=== PATIENT | female | born 1945 | race Caucasian/White ===

== ENCOUNTER → 2016-10-21 | Outpatient (CLI) | payer MEDICARE, OTHER ==
[2016-10-21 13:15] LABS: Urine Bilirubin Negative (Negative); Urine Blood TRACE /uL (Negative); Urine Color Yellow (Yellow); Urine Glucose Normal (Normal); Urine Ketone Negative (Negative); Urine Urobilinogen Normal (Negative); Urine pH 5.5 (5.0-8.0)
[2016-10-21 14:10] LABS: Urine Nitrite POSITIVE (Negative)
== END | disposition home or self-care (01) ==
LOC: LAB 10:15
PROVIDERS: ATTEND Internal Medicine Cardiovascular Disease
DX: N39.0 Urinary tract infection, site not specified (principal)
CPT/HCPCS: 81003; 87086

== ENCOUNTER → 2016-11-07 | Outpatient (CLI) | payer MEDICARE, OTHER ==
[2016-11-07 12:33] LABS: Urine Bilirubin Negative (Negative); Urine Blood Negative /uL (Negative); Urine Color Yellow (Yellow); Urine Glucose Normal (Normal); Urine Ketone Negative (Negative); Urine Nitrite Negative (Negative); Urine Urobilinogen Normal (Negative); Urine pH 5.5 (5.0-8.0)
== END | disposition home or self-care (01) ==
LOC: LAB 09:21
PROVIDERS: ATTEND Internal Medicine Cardiovascular Disease
DX: N39.0 Urinary tract infection, site not specified (principal)
CPT/HCPCS: 81003; 87086

== ENCOUNTER → 2016-11-18 | Outpatient (CLI) | payer MEDICARE, OTHER ==
[2016-11-18 12:38] LABS: Basophils # (auto) 0 uL; Basophils % (auto) 0.6 % (0.0-2.0); Eosinophils # (auto) 0.3 uL; Eosinophils % (auto) 5.7 % (0.0-7.0); Hematocrit 44.2 % (36.0-46.0); Hemoglobin 14.2 g/dL (12.2-16.2); Lymphocytes # (auto) 1.7 uL; Lymphocytes % (auto) 37.8 % (10.0-50.0); Mean Corpuscular Hemoglobin 31.5 pg (28.0-32.0); Mean Corpuscular Hgb Conc. 32.2 g/dL (32.0-36.0); Mean Corpuscular Volume 97.8 fL (80.0-100.0); Mean Platelet Volume 9.2 fL (7.4-10.4); Monocytes # (auto) 0.3 uL; Monocytes % (auto) 7.5 % (0.0-12.0); Neutrophils # (auto) 2.2 uL; Neutrophils % (auto) 48.4 % (37.0-80.0); Platelet Count (auto) 245 10^3/uL (140-450); Red Cell Distribution Width 12.7 % (11.6-16.0); White Blood Cell 4.6 10^3/uL (4.4-10.8)
[2016-11-18 13:30] LABS: Albumin 3.8 g/dL (3.4-5.0); BUN/Creatinine Ratio 24.7; Bilirubin, Direct 0.1 mg/dL (0-0.2); Calcium 9.3 mg/dL (8.5-10.1); Potassium 4.2 mmol/L (3.5-5.1)
[2016-11-18 13:33] LABS: Bilirubin, Total 0.4 mg/dL (0.2-1.0)
== END | disposition home or self-care (01) ==
LOC: LAB 08:28
PROVIDERS: ATTEND Internal Medicine Cardiovascular Disease
DX: I10 Essential (primary) hypertension (principal); D64.9 Anemia, unspecified; E78.00 Pure hypercholesterolemia, unspecified; E03.9 Hypothyroidism, unspecified; E55.9 Vitamin D deficiency, unspecified; K74.1 Hepatic sclerosis; E11.9 Type 2 diabetes mellitus without complications; Z13.0 Encounter for screening for diseases of the blood and blood-forming organs and certain disorders involving the immune mechanism; R79.82 Elevated C-reactive protein (CRP)
CPT/HCPCS: 36415; 80048; 80061; 80076; 82306; 83036; 84443; 85025; 85652; 86038; 86141; 86225

== ENCOUNTER → 2017-01-13 | Outpatient (CLI) | payer MEDICARE, OTHER ==
[2017-01-13 12:42] LABS: Urine Bilirubin Negative (Negative); Urine Blood Negative /uL (Negative); Urine Color Yellow (Yellow); Urine Glucose Normal (Normal); Urine Ketone TRACE (Negative); Urine Nitrite Negative (Negative); Urine Urobilinogen Normal (Negative)
[2017-01-13 12:43] LABS: Basophils # (auto) 0 uL; Basophils % (auto) 0.3 % (0.0-2.0); Eosinophils # (auto) 0.5 uL; Eosinophils % (auto) 4.6 % (0.0-7.0); Hematocrit 40.3 % (36.0-46.0); Hemoglobin 13.6 g/dL (12.2-16.2); Lymphocytes # (auto) 1.7 uL; Lymphocytes % (auto) 17.3 % (10.0-50.0); Mean Corpuscular Hemoglobin 33.1 pg (28.0-32.0); Mean Corpuscular Hgb Conc. 33.7 g/dL (32.0-36.0); Mean Corpuscular Volume 98.2 fL (80.0-100.0); Mean Platelet Volume 8.7 fL (7.4-10.4); Monocytes # (auto) 0.8 uL; Neutrophils % (auto) 69.8 % (37.0-80.0); Platelet Count (auto) 323 10^3/uL (140-450); Red Cell Distribution Width 12.6 % (11.6-16.0); White Blood Cell 10.1 10^3/uL (4.4-10.8)
== END | disposition home or self-care (01) ==
LOC: LAB 10:36
PROVIDERS: ATTEND Internal Medicine Cardiovascular Disease
DX: Z13.0 Encounter for screening for diseases of the blood and blood-forming organs and certain disorders involving the immune mechanism (principal); D64.9 Anemia, unspecified; R70.0 Elevated erythrocyte sedimentation rate; R79.82 Elevated C-reactive protein (CRP); N39.0 Urinary tract infection, site not specified
CPT/HCPCS: 36415; 81003; 85025; 85652; 86038; 86141; 86225; 86431; 87086

== ENCOUNTER → 2017-03-20 | Outpatient (CLI) | payer MEDICARE, OTHER ==
[2017-03-20 16:27] LABS: Urine Bilirubin Negative (Negative); Urine Blood Negative /uL (Negative); Urine Color Yellow (Yellow); Urine Glucose Normal (Normal); Urine Ketone Negative (Negative); Urine Urobilinogen Normal (Negative)
[2017-03-20 16:30] LABS: Urine Nitrite POSITIVE (Negative)
== END | disposition home or self-care (01) ==
LOC: LAB 13:13
PROVIDERS: ATTEND Internal Medicine Cardiovascular Disease
DX: N39.0 Urinary tract infection, site not specified (principal)
CPT/HCPCS: 81003; 87086

== ENCOUNTER → 2017-04-07 | Outpatient (CLI) | payer MEDICARE, OTHER | END | disposition home or self-care (01) | LOC: LAB 12:36 | PROVIDERS: ATTEND Internal Medicine Cardiovascular Disease | DX: N39.0 Urinary tract infection, site not specified (principal) | CPT/HCPCS: 36415; 87086 ==

== ENCOUNTER → 2017-05-29 | Outpatient (CLI) | payer MEDICARE, OTHER ==
[2017-05-29 12:41] LABS: Urine Bilirubin Negative (Negative); Urine Blood Negative /uL (Negative); Urine Color Yellow (Yellow); Urine Glucose Normal (Normal); Urine Ketone Negative (Negative); Urine Nitrite Negative (Negative); Urine Urobilinogen Normal (Negative)
== END | disposition home or self-care (01) ==
LOC: LAB 09:15
PROVIDERS: ATTEND Internal Medicine Cardiovascular Disease
DX: N39.0 Urinary tract infection, site not specified (principal)
CPT/HCPCS: 81003; 87086

== ENCOUNTER → 2017-06-05 | Outpatient (CLI) | payer MEDICARE, OTHER | END | disposition home or self-care (01) | LOC: Rad HDHVI 08:02 | PROVIDERS: ATTEND Internal Medicine Cardiovascular Disease | DX: I07.1 Rheumatic tricuspid insufficiency (principal); I10 Essential (primary) hypertension; I25.10 Atherosclerotic heart disease of native coronary artery without angina pectoris | CPT/HCPCS: 93306 ==

== ENCOUNTER → 2017-06-23 | Outpatient (CLI) | payer MEDICARE, OTHER ==
[~2017-06-23] VITALS: Ht 160 cm; Wt 69.4 kg
== END | disposition home or self-care (01) ==
LOC: Rad HDHVI 07:53
PROVIDERS: ATTEND Internal Medicine Cardiovascular Disease
DX: I25.10 Atherosclerotic heart disease of native coronary artery without angina pectoris (principal); I10 Essential (primary) hypertension; E78.00 Pure hypercholesterolemia, unspecified
CPT/HCPCS: 78452; 93017; 96374; A9500

== ENCOUNTER → 2017-10-02 | Outpatient (CLI) | payer MEDICARE, OTHER ==
[2017-10-02 16:18] LABS: Basophils # (auto) 0 uL; Monocytes # (auto) 0.6 uL; Nucleated Red Blood Cells % 0.1 %; White Blood Cell 7.5 10^3/uL (4.4-10.8)
[2017-10-02 16:21] LABS: Basophils % (auto) 0.7 % (0.0-2.0); Eosinophils # (auto) 0.2 uL; Eosinophils % (auto) 3.3 % (0.0-7.0); Hematocrit 39.5 % (36.0-46.0); Hemoglobin 13.6 g/dL (12.2-16.2); Lymphocytes # (auto) 2.2 uL; Lymphocytes % (auto) 29.3 % (10.0-50.0); Mean Corpuscular Hemoglobin 35.1 pg (28.0-32.0); Mean Corpuscular Hgb Conc. 34.3 g/dL (32.0-36.0); Mean Corpuscular Volume 102.3 fL (80.0-100.0); Mean Platelet Volume 8.2 fL (6.9-10.8); Monocytes % (auto) 8.2 % (0.0-12.0); Neutrophils # (auto) 4.4 uL; Neutrophils % (auto) 58.5 % (37.0-80.0); Platelet Count (auto) 223 10^3/uL (140-450); Red Cell Distribution Width 13.9 % (11.8-14.3)
[2017-10-02 16:27] LABS: Albumin 3.9 g/dL (3.4-5.0); BUN/Creatinine Ratio 28.8; Bilirubin, Total 0.5 mg/dL (0.2-1.0); Calcium 9.1 mg/dL (8.5-10.1); Potassium 3.5 mmol/L (3.5-5.1); Total Protein 7.8 g/dL (6.4-8.2)
== END | disposition home or self-care (01) ==
LOC: LAB 15:28
PROVIDERS: ATTEND Internal Medicine Cardiovascular Disease
DX: I10 Essential (primary) hypertension (principal); E03.9 Hypothyroidism, unspecified; D64.9 Anemia, unspecified; R70.0 Elevated erythrocyte sedimentation rate; R79.82 Elevated C-reactive protein (CRP)
CPT/HCPCS: 36415; 80053; 84439; 84443; 85025; 85652; 86141

== ENCOUNTER → 2017-10-17 | Outpatient (CLI) | payer MEDICARE, OTHER ==
[2017-10-17 14:12] LABS: Urine Bacteria FEW /hpf (None Seen); Urine Blood Negative /uL (Negative); Urine Mucus FEW (None Seen); Urine Specific Gravity 1.017 (1.001-1.035); Urine WBC 15 /hpf (0 - 5)
== END | disposition home or self-care (01) ==
LOC: LAB 13:23
DX: N39.0 Urinary tract infection, site not specified (principal)
CPT/HCPCS: 81001; 87086; 87088; 87186

== ENCOUNTER → 2017-10-23 | Outpatient (CLI) | payer MEDICARE, OTHER | END | disposition home or self-care (01) | LOC: Rad HDHVI 11:50 | PROVIDERS: ATTEND Internal Medicine Cardiovascular Disease | DX: M18.9 Osteoarthritis of first carpometacarpal joint, unspecified (principal) | CPT/HCPCS: 73110 ==

== ENCOUNTER → 2018-01-01 | Outpatient (CLI) | payer MEDICARE, OTHER ==
[2018-01-01 16:19] LABS: Basophils # (auto) 0.1 uL; Eosinophils # (auto) 0.3 uL; Eosinophils % (auto) 4.1 % (0.0-7.0); Hematocrit 41.2 % (36.0-46.0); Hemoglobin 13.9 g/dL (12.2-16.2); Lymphocytes # (auto) 1.4 uL; Mean Corpuscular Hemoglobin 34.2 pg (28.0-32.0); Mean Corpuscular Hgb Conc. 33.8 g/dL (32.0-36.0); Mean Corpuscular Volume 101.4 fL (80.0-100.0); Monocytes # (auto) 0.5 uL; Monocytes % (auto) 8.5 % (0.0-12.0); Neutrophils # (auto) 4.2 uL; Neutrophils % (auto) 64.4 % (37.0-80.0); Nucleated Red Blood Cells % 0.5 %; Platelet Count (auto) 231 10^3/uL (140-450); Red Blood Cells 4.06 10^6/uL (4.0-5.20); Red Cell Distribution Width 13.8 % (11.8-14.3); White Blood Cell 6.4 10^3/uL (4.4-10.8)
[2018-01-01 16:39] LABS: Bilirubin, Total 0.7 mg/dL (0.2-1.0)
== END | disposition home or self-care (01) ==
LOC: CHF HDHVI 11:38
PROVIDERS: ATTEND Internal Medicine Cardiovascular Disease
DX: M32.10 Systemic lupus erythematosus, organ or system involvement unspecified (principal); I10 Essential (primary) hypertension; D64.9 Anemia, unspecified; N39.0 Urinary tract infection, site not specified
CPT/HCPCS: 36415; 80053; 85025; 86225; 86235; 87086

== ENCOUNTER → 2018-02-21 | Outpatient (CLI) | payer MEDICARE, OTHER ==
[~2018-02-21] VITALS: Ht 160 cm; Wt 71.7 kg
== END | disposition home or self-care (01) ==
LOC: Rad HDHVI 09:29
PROVIDERS: ATTEND Internal Medicine Cardiovascular Disease
DX: I07.1 Rheumatic tricuspid insufficiency (principal); I10 Essential (primary) hypertension; R60.9 Edema, unspecified; M06.9 Rheumatoid arthritis, unspecified; Z79.899 Other long term (current) drug therapy
CPT/HCPCS: 78452; 93017; 93306; 96374; A9500

== ENCOUNTER → 2018-03-19 | Outpatient (CLI) | payer MEDICARE, OTHER ==
[2018-03-19 12:19] LABS: Urine Blood Negative /uL (Negative); Urine Specific Gravity 1.015 (1.001-1.035)
[2018-03-19 12:21] LABS: Eosinophils # (auto) 0.3 uL; Monocytes # (auto) 0.5 uL; Neutrophils # (auto) 2.8 uL; Nucleated Red Blood Cells % 1.1 %; Red Blood Cells 4.04 10^6/uL (4.0-5.20); Red Cell Distribution Width 13.6 % (11.8-14.3)
[2018-03-19 12:24] LABS: Basophils # (auto) 0.1 uL; Basophils % (auto) 1.2 % (0.0-2.0); Eosinophils % (auto) 5.9 % (0.0-7.0); Hematocrit 41.4 % (36.0-46.0); Hemoglobin 14.1 g/dL (12.2-16.2); Lymphocytes # (auto) 1.7 uL; Lymphocytes % (auto) 30.9 % (10.0-50.0); Mean Corpuscular Hgb Conc. 34.1 g/dL (32.0-36.0); Mean Corpuscular Volume 102.4 fL (80.0-100.0); Monocytes % (auto) 9.5 % (0.0-12.0); Neutrophils % (auto) 52.5 % (37.0-80.0); Platelet Count (auto) 196 10^3/uL (140-450); White Blood Cell 5.4 10^3/uL (4.4-10.8)
[2018-03-19 13:03] LABS: Albumin 3.9 g/dL (3.4-5.0); BUN/Creatinine Ratio 19.4; Bilirubin, Total 0.6 mg/dL (0.2-1.0); Calcium 9.5 mg/dL (8.5-10.1); Potassium 4.2 mmol/L (3.5-5.1); Total Protein 7.9 g/dL (6.4-8.2)
== END | disposition home or self-care (01) ==
LOC: LAB 08:23
PROVIDERS: ATTEND Internal Medicine Cardiovascular Disease
DX: Z00.01 Encounter for general adult medical examination with abnormal findings (principal); M10.9 Gout, unspecified; M05.9 Rheumatoid arthritis with rheumatoid factor, unspecified; E03.9 Hypothyroidism, unspecified; E55.9 Vitamin D deficiency, unspecified; E11.9 Type 2 diabetes mellitus without complications; D51.9 Vitamin B12 deficiency anemia, unspecified; N39.0 Urinary tract infection, site not specified
CPT/HCPCS: 36415; 80053; 80061; 81003; 82306; 83036; 84443; 85025; 86225; 86235

== ENCOUNTER → 2018-04-19 | Outpatient (CLI) | payer MEDICARE, BC | END | disposition home or self-care (01) | LOC: Rad HDHVI 09:24 | PROVIDERS: ATTEND Internal Medicine Cardiovascular Disease | DX: I51.7 Cardiomegaly (principal); I70.0 Atherosclerosis of aorta; I10 Essential (primary) hypertension; E11.9 Type 2 diabetes mellitus without complications; E03.9 Hypothyroidism, unspecified; Z79.899 Other long term (current) drug therapy; E78.00 Pure hypercholesterolemia, unspecified; R06.02 Shortness of breath | CPT/HCPCS: 71046 ==

== ENCOUNTER → 2018-05-21 | Outpatient (CLI) | payer MEDICARE, BC ==
[2018-05-21 16:11] LABS: Urine Blood Negative /uL (Negative); Urine Specific Gravity 1.022 (1.001-1.035)
== END | disposition home or self-care (01) ==
LOC: LAB 12:34
PROVIDERS: ATTEND Internal Medicine
DX: N39.0 Urinary tract infection, site not specified (principal); I10 Essential (primary) hypertension; E03.9 Hypothyroidism, unspecified; E11.9 Type 2 diabetes mellitus without complications
CPT/HCPCS: 81003; 87086; 87088; 87186

== ENCOUNTER → 2018-06-21 | Outpatient (CLI) | payer MEDICARE, BC ==
[2018-06-21 12:19] LABS: Urine Blood Negative /uL (Negative); Urine Specific Gravity 1.011 (1.001-1.035)
[2018-06-21 12:20] LABS: Eosinophils # (auto) 0.3 uL; Monocytes # (auto) 0.5 uL; Neutrophils # (auto) 2.4 uL; White Blood Cell 4.7 10^3/uL (4.4-10.8)
[2018-06-21 12:21] LABS: Basophils # (auto) 0 uL; Basophils % (auto) 0.9 % (0.0-2.0); Eosinophils % (auto) 6.9 % (0.0-7.0); Lymphocytes # (auto) 1.4 uL; Lymphocytes % (auto) 29.7 % (10.0-50.0); Mean Corpuscular Hemoglobin 34.9 pg (28.0-32.0); Mean Corpuscular Hgb Conc. 34.2 g/dL (32.0-36.0); Mean Corpuscular Volume 101.8 fL (80.0-100.0); Monocytes % (auto) 10.3 % (0.0-12.0); Neutrophils % (auto) 52.2 % (37.0-80.0); Nucleated Red Blood Cells % 0.7 %; Platelet Count (auto) 244 10^3/uL (140-450); Red Blood Cells 4.03 10^6/uL (4.0-5.20); Red Cell Distribution Width 13.8 % (11.8-14.3)
[2018-06-21 12:40] LABS: Alanine Aminotransferase 36 U/L (13-56); Alkaline Phosphatase 90 U/L (45-117); Anion Gap 7 (5-15); Aspartate Aminotransferase 34 U/L (15-37); Bilirubin, Direct < 0.1 mg/dL (0-0.2); Bilirubin, Total 0.4 mg/dL (0.2-1.0); Blood Urea Nitrogen 10 mg/dL (7-18); Calcium 9.2 mg/dL (8.5-10.1); Carbon Dioxide 25 mmol/L (21-32); Chloride 109 mmol/L (98-107); Cholesterol 210 mg/dL (< 200); GFR African American 94 mL/min; GFR Non-African American 78 mL/min; Glucose 93 mg/dL (74-106); HDL Cholesterol 75 mg/dL (40-59); LDL Cholesterol 121 mg/dL (< 100); Potassium 4.3 mmol/L (3.5-5.1); Sodium 141 mmol/L (136-145); Total Protein 7.9 g/dL (6.4-8.2); Triglycerides 124 mg/dL (< 150)
== END | disposition home or self-care (01) ==
LOC: LAB 08:59
PROVIDERS: ATTEND Internal Medicine Cardiovascular Disease
DX: K74.1 Hepatic sclerosis (principal); E11.9 Type 2 diabetes mellitus without complications; I10 Essential (primary) hypertension; N39.0 Urinary tract infection, site not specified; E78.5 Hyperlipidemia, unspecified; E03.9 Hypothyroidism, unspecified; E55.9 Vitamin D deficiency, unspecified; Z88.2 Allergy status to sulfonamides; Z88.0 Allergy status to penicillin
CPT/HCPCS: 36415; 80048; 80061; 80076; 81003; 82306; 83036; 84443; 85025; 87086

== ENCOUNTER → 2018-07-23 | Outpatient (CLI) | payer MEDICARE, BC ==
[2018-07-23 16:21] LABS: Urine Blood Negative /uL (Negative); Urine Specific Gravity 1.019 (1.001-1.035)
== END | disposition home or self-care (01) ==
LOC: LAB 13:05
PROVIDERS: ATTEND Internal Medicine
DX: N39.0 Urinary tract infection, site not specified (principal)
CPT/HCPCS: 81003; 87086

== ENCOUNTER → 2018-09-20 | Outpatient (CLI) | payer MEDICARE, BC ==
[2018-09-20 12:19] LABS: Urine Blood Negative /uL (Negative); Urine Specific Gravity 1.014 (1.001-1.035)
[2018-09-20 12:37] LABS: Potassium 4.2 mmol/L (3.5-5.1)
[2018-09-20 12:50] LABS: Albumin 3.8 g/dL (3.4-5.0); BUN/Creatinine Ratio 18.2; Bilirubin, Total 0.7 mg/dL (0.2-1.0); Calcium 9.3 mg/dL (8.5-10.1); Total Protein 7.5 g/dL (6.4-8.2)
== END | disposition home or self-care (01) ==
LOC: LAB 08:26
PROVIDERS: ATTEND Internal Medicine Cardiovascular Disease
DX: E78.5 Hyperlipidemia, unspecified (principal); I10 Essential (primary) hypertension; N39.0 Urinary tract infection, site not specified
CPT/HCPCS: 36415; 80053; 80061; 81003; 87086

== ENCOUNTER → 2018-10-18 | Outpatient (CLI) | payer MEDICARE, BC ==
[2018-10-18 12:31] LABS: Urine Blood Negative /uL (Negative); Urine Specific Gravity 1.017 (1.001-1.035)
== END | disposition home or self-care (01) ==
LOC: LAB 10:21
PROVIDERS: ATTEND Internal Medicine Cardiovascular Disease
DX: K74.1 Hepatic sclerosis (principal); N39.0 Urinary tract infection, site not specified
CPT/HCPCS: 36415; 81003; 82565; 84450; 84460; 84520; 87086; 87088; 87186

== ENCOUNTER → 2018-12-06 | Outpatient (CLI) | payer MEDICARE, BC ==
[2018-12-06 15:01] LABS: Urine Blood Negative /uL (Negative); Urine Specific Gravity 1.014 (1.001-1.035)
== END | disposition home or self-care (01) ==
LOC: LAB 10:45
PROVIDERS: ATTEND Internal Medicine Cardiovascular Disease
DX: N39.0 Urinary tract infection, site not specified (principal)
CPT/HCPCS: 81003; 87086; 87088; 87186

== ENCOUNTER → 2018-12-12 | Outpatient (CLI) | payer MEDICARE, BC ==
[2018-12-12 12:21] LABS: Basophils # (auto) 0.1 uL; Eosinophils # (auto) 0.4 uL; Lymphocytes # (auto) 1.3 uL; Neutrophils # (auto) 2.6 uL; Nucleated Red Blood Cells % 0.8 %; Red Blood Cells 3.93 10^6/uL (4.0-5.20); Red Cell Distribution Width 14.4 % (11.8-14.3); White Blood Cell 4.8 10^3/uL (4.4-10.8)
[2018-12-12 12:23] LABS: Basophils % (auto) 1.5 % (0.0-2.0); Eosinophils % (auto) 7.7 % (0.0-7.0); Hematocrit 39.5 % (36.0-46.0); Hemoglobin 13.3 g/dL (12.2-16.2); Lymphocytes % (auto) 27.8 % (10.0-50.0); Mean Corpuscular Hemoglobin 33.9 pg (28.0-32.0); Mean Corpuscular Hgb Conc. 33.8 g/dL (32.0-36.0); Mean Corpuscular Volume 100.4 fL (80.0-100.0); Monocytes # (auto) 0.4 uL; Monocytes % (auto) 8.6 % (0.0-12.0); Neutrophils % (auto) 54.4 % (37.0-80.0); Platelet Count (auto) 220 10^3/uL (140-450)
[2018-12-12 12:28] LABS: Albumin 3.8 g/dL (3.4-5.0)
[2018-12-12 12:35] LABS: BUN/Creatinine Ratio 17.1; Bilirubin, Total 0.4 mg/dL (0.2-1.0); Total Protein 7.8 g/dL (6.4-8.2)
== END | disposition home or self-care (01) ==
LOC: LAB 08:16
PROVIDERS: ATTEND Internal Medicine Cardiovascular Disease
DX: E78.5 Hyperlipidemia, unspecified (principal); D64.9 Anemia, unspecified; I10 Essential (primary) hypertension
CPT/HCPCS: 36415; 80053; 80061; 85025

== ENCOUNTER → 2019-03-18 | Outpatient (CLI) | payer MEDICARE, BC ==
[2019-03-18 12:33] LABS: Basophils # (auto) 0.1 uL; Eosinophils # (auto) 0.3 uL; Hemoglobin 13.6 g/dL (12.2-16.2); Monocytes # (auto) 0.4 uL; Neutrophils # (auto) 3.3 uL
[2019-03-18 12:35] LABS: Basophils % (auto) 1.1 % (0.0-2.0); Eosinophils % (auto) 5.4 % (0.0-7.0); Lymphocytes # (auto) 1.5 uL; Lymphocytes % (auto) 27.4 % (10.0-50.0); Mean Corpuscular Hemoglobin 34.6 pg (28.0-32.0); Monocytes % (auto) 7.2 % (0.0-12.0); Neutrophils % (auto) 58.9 % (37.0-80.0); Nucleated Red Blood Cells % 0.1 %; Platelet Count (auto) 229 10^3/uL (140-450); Red Blood Cells 3.92 10^6/uL (4.0-5.20); Red Cell Distribution Width 13.8 % (11.8-14.3); White Blood Cell 5.6 10^3/uL (4.4-10.8)
[2019-03-18 13:21] LABS: Potassium 4.2 mmol/L (3.5-5.1)
[2019-03-18 13:30] LABS: Albumin 3.7 g/dL (3.4-5.0); BUN/Creatinine Ratio 19.5; Bilirubin, Total 0.5 mg/dL (0.2-1.0); Calcium 9.1 mg/dL (8.5-10.1); Total Protein 7.5 g/dL (6.4-8.2)
== END | disposition home or self-care (01) ==
LOC: LAB 09:49
PROVIDERS: ATTEND Internal Medicine
DX: D64.9 Anemia, unspecified (principal); I10 Essential (primary) hypertension
CPT/HCPCS: 36415; 80053; 85025

== ENCOUNTER → 2019-03-22 | Outpatient (CLI) | payer MEDICARE, BC ==
[2019-03-22 12:06] LABS: Urine Blood Negative /uL (Negative)
== END | disposition home or self-care (01) ==
LOC: LAB 09:20
PROVIDERS: ATTEND Internal Medicine
DX: N39.0 Urinary tract infection, site not specified (principal)
CPT/HCPCS: 81003

== ENCOUNTER → 2019-04-22 | Outpatient (CLI) | payer MEDICARE, BC ==
[2019-04-22 17:41] LABS: Urine Blood Negative /uL (Negative); Urine Specific Gravity 1.019 (1.001-1.035)
== END | disposition home or self-care (01) ==
LOC: LAB 10:22
PROVIDERS: ATTEND Internal Medicine Cardiovascular Disease
DX: N39.0 Urinary tract infection, site not specified (principal)
CPT/HCPCS: 81003; 87086; 87088; 87186

== ENCOUNTER → 2019-05-10 | Outpatient (CLI) | payer MEDICARE, BC ==
[2019-05-10 12:41] LABS: Urine Blood Negative /uL (Negative); Urine Specific Gravity 1.014 (1.001-1.035)
== END | disposition home or self-care (01) ==
LOC: LAB 08:44
PROVIDERS: ATTEND Internal Medicine Cardiovascular Disease
DX: N39.0 Urinary tract infection, site not specified (principal)
CPT/HCPCS: 81003; 87086

== ENCOUNTER → 2019-06-19 | Outpatient (CLI) | payer MEDICARE, BC ==
[2019-06-19 12:11] LABS: Urine Blood Negative /uL (Negative); Urine Specific Gravity 1.009 (1.001-1.035)
[2019-06-19 12:19] LABS: Eosinophils # (auto) 0.3 uL; Eosinophils % (auto) 6.4 % (0.0-7.0); Lymphocytes # (auto) 1.4 uL; Monocytes # (auto) 0.5 uL; Red Blood Cells 3.85 10^6/uL (4.0-5.20)
[2019-06-19 12:22] LABS: Basophils # (auto) 0 uL; Hematocrit 39.5 % (36.0-46.0); Hemoglobin 13.7 g/dL (12.2-16.2); Lymphocytes % (auto) 33.6 % (10.0-50.0); Mean Corpuscular Hemoglobin 35.5 pg (28.0-32.0); Mean Corpuscular Hgb Conc. 34.6 g/dL (32.0-36.0); Mean Corpuscular Volume 102.5 fL (80.0-100.0); Nucleated Red Blood Cells % 0.1 %; Platelet Count (auto) 202 10^3/uL (140-450); Potassium 4.3 mmol/L (3.5-5.1); Red Cell Distribution Width 13.4 % (11.8-14.3); White Blood Cell 4.1 10^3/uL (4.4-10.8)
[2019-06-19 12:28] LABS: Albumin 3.7 g/dL (3.4-5.0); BUN/Creatinine Ratio 15.1; Bilirubin, Total 0.4 mg/dL (0.2-1.0); Calcium 9.1 mg/dL (8.5-10.1); Total Protein 7.3 g/dL (6.4-8.2)
[2019-06-19 12:33] LABS: Free T4 (Free Thyroxine) 0.89 ng/dL (0.89-1.76)
== END | disposition home or self-care (01) ==
LOC: LAB 08:24
PROVIDERS: ATTEND Internal Medicine
DX: E03.9 Hypothyroidism, unspecified (principal); K90.9 Intestinal malabsorption, unspecified; N39.0 Urinary tract infection, site not specified; D51.9 Vitamin B12 deficiency anemia, unspecified; Z79.899 Other long term (current) drug therapy
CPT/HCPCS: 36415; 80053; 80061; 81003; 82306; 82607; 83036; 84439; 84443; 85025

== ENCOUNTER → 2019-09-04 | Outpatient (CLI) | payer MEDICARE, BC | END | disposition home or self-care (01) | LOC: Rad HDHVI 12:18 | PROVIDERS: ATTEND Internal Medicine | DX: R06.02 Shortness of breath (principal); R07.89 Other chest pain | CPT/HCPCS: 71046 ==

== ENCOUNTER → 2019-10-22 | Outpatient (CLI) | payer MEDICARE, BC ==
[2019-10-22 15:45] LABS: Basophils # (auto) 0.1 uL; Eosinophils # (auto) 0.3 uL; Lymphocytes # (auto) 1.8 uL; Mean Corpuscular Hemoglobin 35.8 pg (28.0-32.0); Monocytes # (auto) 0.8 uL
[2019-10-22 15:48] LABS: Basophils % (auto) 1.1 % (0.0-2.0); Eosinophils % (auto) 4.1 % (0.0-7.0); Hematocrit 42.3 % (36.0-46.0); Hemoglobin 14.5 g/dL (12.2-16.2); Lymphocytes % (auto) 25.7 % (10.0-50.0); Mean Corpuscular Hgb Conc. 34.4 g/dL (32.0-36.0); Mean Corpuscular Volume 104.1 fL (80.0-100.0); Monocytes % (auto) 11.1 % (0.0-12.0); Nucleated Red Blood Cells % 0.2 %; Platelet Count (auto) 200 10^3/uL (140-450); Red Blood Cells 4.06 10^6/uL (4.0-5.20); Red Cell Distribution Width 13.8 % (11.8-14.3); Urine Blood Negative /uL (Negative); Urine Specific Gravity 1.021 (1.001-1.035)
[2019-10-22 15:54] LABS: Albumin 3.9 g/dL (3.4-5.0); BUN/Creatinine Ratio 17.2; Calcium 9.5 mg/dL (8.5-10.1); Potassium 4.4 mmol/L (3.5-5.1)
[2019-10-22 15:58] LABS: Bilirubin, Total 0.6 mg/dL (0.2-1.0); Total Protein 8.2 g/dL (6.4-8.2)
== END | disposition home or self-care (01) ==
LOC: LAB 11:30
PROVIDERS: ATTEND Internal Medicine
DX: D64.9 Anemia, unspecified (principal); I10 Essential (primary) hypertension; N39.0 Urinary tract infection, site not specified
CPT/HCPCS: 36415; 80053; 81003; 85025; 87086

== ENCOUNTER → 2019-12-03 | Outpatient (CLI) | payer MEDICARE, BC ==
[~2019-12-03] VITALS: Ht 160 cm; Wt 71.2 kg
== END | disposition home or self-care (01) ==
LOC: Rad HDHVI 12:53
PROVIDERS: ATTEND Internal Medicine Cardiovascular Disease
DX: I25.10 Atherosclerotic heart disease of native coronary artery without angina pectoris (principal); I10 Essential (primary) hypertension; E78.00 Pure hypercholesterolemia, unspecified; M32.9 Systemic lupus erythematosus, unspecified; Z82.49 Family history of ischemic heart disease and other diseases of the circulatory system; Z95.5 Presence of coronary angioplasty implant and graft
CPT/HCPCS: 78452; 93017; 93306; 96374; A9500

== ENCOUNTER → 2019-12-10 | Outpatient (CLI) | payer MEDICARE, BC ==
[2019-12-10 12:13] LABS: Basophils # (auto) 0 uL; Basophils % (auto) 0.7 % (0.0-2.0); Eosinophils # (auto) 0.2 uL; Hematocrit 38.3 % (36.0-46.0); Hemoglobin 13.1 g/dL (12.2-16.2); Nucleated Red Blood Cells % 0.1 %
[2019-12-10 12:16] LABS: Eosinophils % (auto) 3.7 % (0.0-7.0); Lymphocytes # (auto) 1.8 uL; Lymphocytes % (auto) 30.8 % (10.0-50.0); Mean Corpuscular Hemoglobin 35.8 pg (28.0-32.0); Mean Corpuscular Hgb Conc. 34.1 g/dL (32.0-36.0); Mean Corpuscular Volume 104.9 fL (80.0-100.0); Monocytes # (auto) 0.4 uL; Monocytes % (auto) 7.6 % (0.0-12.0); Neutrophils # (auto) 3.3 uL; Neutrophils % (auto) 57.2 % (37.0-80.0); Platelet Count (auto) 173 10^3/uL (140-450); Red Blood Cells 3.65 10^6/uL (4.0-5.20); Red Cell Distribution Width 13.4 % (11.8-14.3); White Blood Cell 5.7 10^3/uL (4.4-10.8)
[2019-12-10 12:43] LABS: Urine Blood Negative /uL (Negative); Urine Specific Gravity 1.011 (1.001-1.035)
[2019-12-10 12:53] LABS: Albumin 3.2 g/dL (3.4-5.0); Calcium 9.2 mg/dL (8.5-10.1); Potassium 3.9 mmol/L (3.5-5.1)
[2019-12-10 12:58] LABS: BUN/Creatinine Ratio 17.7; Bilirubin, Total 0.2 mg/dL (0.2-1.0); Total Protein 6.9 g/dL (6.4-8.2)
== END | disposition home or self-care (01) ==
LOC: LAB 08:27
PROVIDERS: ATTEND Internal Medicine Cardiovascular Disease
DX: D64.9 Anemia, unspecified (principal); N39.0 Urinary tract infection, site not specified; I10 Essential (primary) hypertension
CPT/HCPCS: 36415; 80053; 81003; 85025; 87086

== ENCOUNTER → 2020-03-06 | Outpatient (CLI) | payer MEDICARE, BC ==
[2020-03-06 16:00] LABS: Urine Blood Negative /uL (Negative); Urine Specific Gravity 1.017 (1.001-1.035)
[2020-03-06 16:03] LABS: Hemoglobin 14.2 g/dL (12.2-16.2)
[2020-03-06 16:05] LABS: Albumin 3.4 g/dL (3.4-5.0); BUN/Creatinine Ratio 12.2; Bilirubin, Total 0.4 mg/dL (0.2-1.0); Total Protein 7.4 g/dL (6.4-8.2)
[2020-03-06 16:19] LABS: Basophils # (auto) 0 10 ^3/uL (0-0.2); Basophils % (auto) 1.3 % (0.0-2.0); Eosinophils # (auto) 0.1 10 ^3/uL (0-0.8); Eosinophils % (auto) 3.3 % (0.0-7.0); Hematocrit 41.9 % (36.0-46.0); Lymphocytes # (auto) 0.8 10 ^3/uL (0.4-5.4); Lymphocytes % (auto) 23.6 % (10.0-50.0); Mean Corpuscular Hemoglobin 36.1 pg (28.0-32.0); Mean Corpuscular Hgb Conc. 33.9 g/dL (32.0-36.0); Mean Corpuscular Volume 106.4 fL (80.0-100.0); Monocytes # (auto) 0.5 10 ^3/uL (0-1.3); Monocytes % (auto) 15.8 % (0.0-12.0); Neutrophils # (auto) 1.9 10 ^3/uL (1.6-8.6); Nucleated Red Blood Cells % 0.2 %; Platelet Count (auto) 183 10^3/uL (140-450); Red Blood Cells 3.94 10^6/uL (4.0-5.20); Red Cell Distribution Width 13.1 % (11.8-14.3); White Blood Cell 3.3 10^3/uL (4.4-10.8)
== END | disposition home or self-care (01) ==
LOC: LAB 11:46
PROVIDERS: ATTEND Internal Medicine Cardiovascular Disease
DX: R70.0 Elevated erythrocyte sedimentation rate (principal); N39.0 Urinary tract infection, site not specified; Z79.899 Other long term (current) drug therapy
CPT/HCPCS: 36415; 80053; 81003; 85025; 85652; 87086; 87088; 87186

== ENCOUNTER → 2020-03-25 | Outpatient (CLI) | payer MEDICARE, BC ==
[2020-03-25 12:17] LABS: Urine Blood Negative /uL (Negative); Urine Specific Gravity 1.018 (1.001-1.035)
== END | disposition home or self-care (01) ==
LOC: LAB 09:22
PROVIDERS: ATTEND Internal Medicine
DX: N39.0 Urinary tract infection, site not specified (principal)
CPT/HCPCS: 81003; 87086; 87088; 87186

== ENCOUNTER → 2020-04-08 | Outpatient (CLI) | payer MEDICARE, BC ==
[2020-04-08 09:58] LABS: Basophils # (auto) 0 10 ^3/uL (0-0.2); Eosinophils # (auto) 0.2 10 ^3/uL (0-0.8); Hemoglobin 13.4 g/dL (12.2-16.2); Lymphocytes # (auto) 1.3 10 ^3/uL (0.4-5.4); Neutrophils # (auto) 2.9 10 ^3/uL (1.6-8.6)
[2020-04-08 10:00] LABS: Basophils % (auto) 0.7 % (0.0-2.0); Eosinophils % (auto) 4.7 % (0.0-7.0); Hematocrit 39.6 % (36.0-46.0); Lymphocytes % (auto) 25.5 % (10.0-50.0); Mean Corpuscular Hemoglobin 35.4 pg (28.0-32.0); Mean Corpuscular Hgb Conc. 33.7 g/dL (32.0-36.0); Monocytes # (auto) 0.7 10 ^3/uL (0-1.3); Monocytes % (auto) 13.5 % (0.0-12.0); Neutrophils % (auto) 55.6 % (37.0-80.0); Nucleated Red Blood Cells % 0.1 %; Platelet Count (auto) 191 10^3/uL (140-450); Red Blood Cells 3.77 10^6/uL (4.0-5.20); Red Cell Distribution Width 12.8 % (11.8-14.3); White Blood Cell 5.3 10^3/uL (4.4-10.8)
[2020-04-08 11:11] LABS: Calcium 9.3 mg/dL (8.5-10.1); Potassium 4.7 mmol/L (3.5-5.1)
[2020-04-08 11:18] LABS: BUN/Creatinine Ratio 19.5
== END | disposition home or self-care (01) ==
LOC: LAB 09:37
PROVIDERS: ATTEND Internal Medicine
DX: E03.9 Hypothyroidism, unspecified (principal); K90.9 Intestinal malabsorption, unspecified; N39.0 Urinary tract infection, site not specified; D51.9 Vitamin B12 deficiency anemia, unspecified; Z79.899 Other long term (current) drug therapy
CPT/HCPCS: 36415; 80048; 82607; 85025; 85652; 87086

== ENCOUNTER → 2020-05-18 | Outpatient (CLI) | payer MEDICARE, BC ==
[2020-05-18 09:20] LABS: Basophils # (auto) 0 10 ^3/uL (0-0.2); Basophils % (auto) 0.5 % (0.0-2.0); Eosinophils # (auto) 0.1 10 ^3/uL (0-0.8); Lymphocytes # (auto) 1.6 10 ^3/uL (0.4-5.4); Nucleated Red Blood Cells % 0.1 %; White Blood Cell 7.6 10^3/uL (4.4-10.8)
[2020-05-18 09:21] LABS: Eosinophils % (auto) 1.3 % (0.0-7.0); Hematocrit 40.8 % (36.0-46.0); Hemoglobin 13.9 g/dL (12.2-16.2); Lymphocytes % (auto) 21.3 % (10.0-50.0); Mean Corpuscular Hemoglobin 35.6 pg (28.0-32.0); Mean Corpuscular Volume 104.5 fL (80.0-100.0); Monocytes # (auto) 0.8 10 ^3/uL (0-1.3); Monocytes % (auto) 9.9 % (0.0-12.0); Neutrophils # (auto) 5.1 10 ^3/uL (1.6-8.6); Platelet Count (auto) 213 10^3/uL (140-450); Red Blood Cells 3.91 10^6/uL (4.0-5.20); Red Cell Distribution Width 13.9 % (11.8-14.3); Urine Blood Negative /uL (Negative); Urine Specific Gravity 1.018 (1.001-1.035)
[2020-05-18 09:53] LABS: Albumin 3.4 g/dL (3.4-5.0); Calcium 9.4 mg/dL (8.5-10.1)
[2020-05-18 10:01] LABS: BUN/Creatinine Ratio 25.7; Bilirubin, Total 0.7 mg/dL (0.2-1.0)
[2020-05-18 10:03] LABS: Free T4 (Free Thyroxine) 0.84 ng/dL (0.89-1.76)
== END | disposition home or self-care (01) ==
LOC: LAB 08:37
PROVIDERS: ATTEND Internal Medicine
DX: E03.9 Hypothyroidism, unspecified (principal); K90.9 Intestinal malabsorption, unspecified; N39.0 Urinary tract infection, site not specified; D51.9 Vitamin B12 deficiency anemia, unspecified; Z79.899 Other long term (current) drug therapy; Z00.00 Encounter for general adult medical examination without abnormal findings
CPT/HCPCS: 36415; 80053; 80061; 81003; 82607; 83036; 84439; 84443; 85025; 86225; 86235

== ENCOUNTER → 2020-07-06 | Outpatient (CLI) | payer MEDICARE, BC ==
[2020-07-06 12:35] LABS: Cholesterol 209 mg/dL (< 200); HDL Cholesterol 104 mg/dL (40-59); LDL Cholesterol 97 mg/dL (< 100); Triglycerides 70 mg/dL (< 150)
== END | disposition home or self-care (01) ==
LOC: LAB 08:35
PROVIDERS: ATTEND Internal Medicine Cardiovascular Disease
DX: E78.00 Pure hypercholesterolemia, unspecified (principal)
CPT/HCPCS: 36415; 80061

== ENCOUNTER → 2020-10-19 | Outpatient (CLI) | payer MEDICARE, BC ==
[~2020-10-19] VITALS: Ht 1 cm; Wt 1.0 kg
[~2020-10-19] MED LIST: IOHEXOL 350 MG/ML 100ML IJ ONE; KETOROLAC TROMETH 30 MG/ML 1ML VIAL IM ONE; KETOROLAC TROMETH 60MG/2ML VIAL IM ONE; KETOROLAC TROMETH 60MG/2ML VIAL ONE; ONDANSETRON HCL 4 MG/2 ML VIAL IV ONE; ONDANSETRON HCL 4 MG/2 ML VIAL ONE; READI-CAT 2 (BARIUM SULF)(VANILLA SMOOTHIE) 450ML ONE
[2020-10-19 11:05] VITALS: BP 186/94
[2020-10-19 12:01] LABS: Urine Blood Normal /uL (Negative)
[2020-10-19 12:18] LABS: Basophils # (auto) 0 10 ^3/uL (0-0.2); Basophils % (auto) 0.8 % (0.0-2.0); Eosinophils # (auto) 0.1 10 ^3/uL (0-0.8); Eosinophils % (auto) 1.8 % (0.0-7.0); Hemoglobin 13.7 g/dL (12.2-16.2); Lymphocytes # (auto) 0.9 10 ^3/uL (0.4-5.4); Lymphocytes % (auto) 17.2 % (10.0-50.0); Mean Corpuscular Hemoglobin 35.6 pg (28.0-32.0); Mean Corpuscular Hgb Conc. 35.1 g/dL (32.0-36.0); Mean Corpuscular Volume 101.4 fL (80.0-100.0); Monocytes # (auto) 0.5 10 ^3/uL (0-1.3); Monocytes % (auto) 10.3 % (0.0-12.0); Neutrophils # (auto) 3.7 10 ^3/uL (1.6-8.6); Neutrophils % (auto) 69.9 % (37.0-80.0); Nucleated Red Blood Cells % 0.4 %; Red Blood Cells 3.84 10^6/uL (4.0-5.20); Red Cell Distribution Width 13.8 % (11.8-14.3); White Blood Cell 5.2 10^3/uL (4.4-10.8)
[2020-10-19 12:30] LABS: Albumin 3.4 g/dL (3.4-5.0); Calcium 9.7 mg/dL (8.5-10.1); Potassium 3.5 mmol/L (3.5-5.1)
[2020-10-19 12:34] LABS: BUN/Creatinine Ratio 17.1; Bilirubin, Total 0.9 mg/dL (0.2-1.0); Total Protein 7.2 g/dL (6.4-8.2)
[2020-10-19 16:00] VITALS: BP 186/94
[2020-10-19 17:44] VITALS: BP 180/90
== END | disposition home or self-care (01) ==
LOC: CHF HDHVI 11:19
PROVIDERS: ATTEND Internal Medicine Cardiovascular Disease
DX: D64.9 Anemia, unspecified (principal); I10 Essential (primary) hypertension; N39.0 Urinary tract infection, site not specified; R10.84 Generalized abdominal pain; M54.5 Low back pain; R11.2 Nausea with vomiting, unspecified
CPT/HCPCS: 36415; 72100; 74177; 80053; 81003; 85025; 96372; 96374; 96375; G0463; J1885; J2405; Q9967

== ENCOUNTER → 2020-11-02 | Outpatient (CLI) | payer MEDICARE, BC ==
[2020-11-02] VITALS (8 sets, daily range): BP systolic 100–149; BP diastolic 68–83
[~2020-11-02] VITALS: Ht 30.5 cm; Wt 0.5 kg
[~2020-11-02] MED LIST changes: +CYANOCOBALAMIN (B-12) 1000 MCG/1 ML VIAL IM ONE; +CYANOCOBALAMIN (B-12) 1000 MCG/1 ML VIAL ONE; -IOHEXOL 350 MG/ML 100ML IJ ONE; -KETOROLAC TROMETH 30 MG/ML 1ML VIAL IM ONE; -KETOROLAC TROMETH 60MG/2ML VIAL IM ONE; -KETOROLAC TROMETH 60MG/2ML VIAL ONE; +POTASSIUM CHL 20 Meq TABLET PO ONE; -READI-CAT 2 (BARIUM SULF)(VANILLA SMOOTHIE) 450ML ONE; +SODIUM CHLORIDE 0.9% 1,000 ML IV ONE; +TRIAMCINOLONE 40MG/ML 1ML VIAL IM ONE; +TRIAMCINOLONE 40MG/ML 1ML VIAL ONE
[2020-11-02 11:36] LABS: Basophils # (auto) 0.1 10 ^3/uL (0-0.2); Eosinophils # (auto) 0.2 10 ^3/uL (0-0.8); Eosinophils % (auto) 1.7 % (0.0-7.0); Red Cell Distribution Width 13.1 % (11.8-14.3); White Blood Cell 9.1 10^3/uL (4.4-10.8)
[2020-11-02 11:39] LABS: Basophils % (auto) 0.9 % (0.0-2.0); Hematocrit 45.2 % (36.0-46.0); Lymphocytes # (auto) 1.6 10 ^3/uL (0.4-5.4); Lymphocytes % (auto) 17.4 % (10.0-50.0); Mean Corpuscular Hemoglobin 35.2 pg (28.0-32.0); Mean Corpuscular Hgb Conc. 35.4 g/dL (32.0-36.0); Mean Corpuscular Volume 99.6 fL (80.0-100.0); Monocytes # (auto) 0.8 10 ^3/uL (0-1.3); Monocytes % (auto) 8.8 % (0.0-12.0); Neutrophils # (auto) 6.5 10 ^3/uL (1.6-8.6); Neutrophils % (auto) 71.2 % (37.0-80.0); Platelet Count (auto) 356 10^3/uL (140-450); Red Blood Cells 4.53 10^6/uL (4.0-5.20)
[2020-11-02 11:44] LABS: Urine Blood Negative /uL (Negative); Urine Specific Gravity 1.009 (1.001-1.035)
[2020-11-02 12:27] LABS: Albumin 3.8 g/dL (3.4-5.0); BUN/Creatinine Ratio 7.2; Calcium 9.8 mg/dL (8.5-10.1); Magnesium 1.7 mg/dL (1.6-2.6); Total Protein 8.3 g/dL (6.4-8.2)
[2020-11-02 14:19] LABS: Potassium 2.7 mmol/L (3.5-5.1)
== END | disposition home or self-care (01) ==
LOC: CHF HDHVI 10:22
PROVIDERS: ATTEND Internal Medicine Cardiovascular Disease
DX: E86.0 Dehydration (principal); D64.9 Anemia, unspecified; R53.83 Other fatigue; R11.0 Nausea; G89.29 Other chronic pain; R06.02 Shortness of breath; I10 Essential (primary) hypertension; Z79.899 Other long term (current) drug therapy
CPT/HCPCS: 36415; 80053; 81003; 82306; 83735; 85025; 87086; 87088; 87186; 96361; 96372; 96374; G0463; J2405; J3301; J3420; J7030; 96360; 96366; 96375

== ENCOUNTER → 2020-11-04 | Outpatient (CLI) | payer MEDICARE, BC ==
[2020-11-04 09:42] LABS: Potassium 4.9 mmol/L (3.5-5.1)
[2020-11-04 10:53] LABS: BUN/Creatinine Ratio 11.9; Calcium 9.6 mg/dL (8.5-10.1)
== END | disposition home or self-care (01) ==
LOC: LAB 08:36
PROVIDERS: ATTEND Internal Medicine Cardiovascular Disease
DX: E87.6 Hypokalemia (principal)
CPT/HCPCS: 36415; 80048

== ENCOUNTER → 2020-11-16 | Outpatient (CLI) | payer MEDICARE, BC ==
[2020-11-16 11:43] LABS: Calcium 9.2 mg/dL (8.5-10.1); Magnesium 2.3 mg/dL (1.6-2.6); Potassium 3.4 mmol/L (3.5-5.1)
[2020-11-16 11:45] LABS: BUN/Creatinine Ratio 20.3
== END | disposition home or self-care (01) ==
LOC: LAB 09:54
PROVIDERS: ATTEND Internal Medicine Cardiovascular Disease
DX: E11.9 Type 2 diabetes mellitus without complications (principal); I49.9 Cardiac arrhythmia, unspecified; E55.9 Vitamin D deficiency, unspecified; E03.9 Hypothyroidism, unspecified
CPT/HCPCS: 36415; 80048; 82607; 83036; 83735; 84443

== ENCOUNTER → 2020-12-09 | Outpatient (CLI) | payer MEDICARE, BC ==
[2020-12-09 16:03] LABS: Albumin 3.6 g/dL (3.4-5.0); Calcium 9.4 mg/dL (8.5-10.1)
[2020-12-09 16:06] LABS: BUN/Creatinine Ratio 32.5; Bilirubin, Total 0.3 mg/dL (0.2-1.0); Total Protein 7.2 g/dL (6.4-8.2)
== END | disposition home or self-care (01) ==
LOC: LAB 14:34
PROVIDERS: ATTEND Internal Medicine
DX: I10 Essential (primary) hypertension (principal)
CPT/HCPCS: 36415; 80053

== ENCOUNTER → 2021-01-14 | Outpatient (CLI) | payer MEDICARE, BC ==
[2021-01-14 11:50] LABS: Potassium 3.6 mmol/L (3.5-5.1)
[2021-01-14 12:01] LABS: Calcium 9.2 mg/dL (8.5-10.1)
== END | disposition home or self-care (01) ==
LOC: LAB 09:30
PROVIDERS: ATTEND Internal Medicine Cardiovascular Disease
DX: I10 Essential (primary) hypertension (principal)
CPT/HCPCS: 36415; 80048

== ENCOUNTER → 2021-02-15 | Outpatient (CLI) | payer MEDICARE, BC ==
[2021-02-15 15:29] LABS: Urine Blood Negative /uL (Negative); Urine Specific Gravity 1.015 (1.001-1.035)
[2021-02-15 15:44] LABS: Albumin 3.5 g/dL (3.4-5.0); Calcium 9.3 mg/dL (8.5-10.1); Potassium 4.4 mmol/L (3.5-5.1)
[2021-02-15 15:47] LABS: BUN/Creatinine Ratio 17.6; Bilirubin, Total 0.4 mg/dL (0.2-1.0); Total Protein 7.3 g/dL (6.4-8.2)
== END | disposition home or self-care (01) ==
LOC: LAB 11:09
PROVIDERS: ATTEND Internal Medicine Cardiovascular Disease
DX: E78.6 Lipoprotein deficiency (principal); N39.0 Urinary tract infection, site not specified
CPT/HCPCS: 36415; 80053; 81003; 87086

== ENCOUNTER → 2021-04-15 | Outpatient (CLI) | payer MEDICARE, BC | END | disposition home or self-care (01) | LOC: Rad HDHVI 15:43 | PROVIDERS: ATTEND Internal Medicine Cardiovascular Disease | DX: I10 Essential (primary) hypertension (principal); R07.89 Other chest pain | CPT/HCPCS: 93306 ==

== ENCOUNTER → 2021-04-26 | Outpatient (CLI) | payer MEDICARE, BC ==
[~2021-04-26] VITALS: Ht 160 cm; Wt 70.3 kg
== END | disposition home or self-care (01) ==
LOC: Rad HDHVI 08:43
PROVIDERS: ATTEND Internal Medicine Cardiovascular Disease
DX: I25.10 Atherosclerotic heart disease of native coronary artery without angina pectoris (principal); I10 Essential (primary) hypertension; R07.89 Other chest pain; E78.5 Hyperlipidemia, unspecified; I25.2 Old myocardial infarction; Z82.49 Family history of ischemic heart disease and other diseases of the circulatory system
CPT/HCPCS: 78452; 93017; 96374; A9500

== ENCOUNTER → 2021-05-20 | Outpatient (CLI) | payer MEDICARE, BC ==
[2021-05-20 11:30] LABS: Basophils # (auto) 0.1 10 ^3/uL (0-0.2); Eosinophils # (auto) 0.3 10 ^3/uL (0-0.8); Hemoglobin 12.9 g/dL (12.2-16.2); Lymphocytes # (auto) 1.5 10 ^3/uL (0.4-5.4); Lymphocytes % (auto) 27.3 % (10.0-50.0); Mean Corpuscular Volume 99.8 fL (80.0-100.0); Monocytes # (auto) 0.6 10 ^3/uL (0-1.3); Neutrophils # (auto) 3.1 10 ^3/uL (1.6-8.6); Nucleated Red Blood Cells % 0.1 %; Urine Blood Negative /uL (Negative); Urine Specific Gravity 1.015 (1.001-1.035)
[2021-05-20 11:31] LABS: Basophils % (auto) 0.9 % (0.0-2.0); Eosinophils % (auto) 4.6 % (0.0-7.0); Hematocrit 37.2 % (36.0-46.0); Mean Corpuscular Hemoglobin 34.6 pg (28.0-32.0); Mean Corpuscular Hgb Conc. 34.7 g/dL (32.0-36.0); Monocytes % (auto) 11.1 % (0.0-12.0); Neutrophils % (auto) 56.1 % (37.0-80.0); Red Blood Cells 3.73 10^6/uL (4.0-5.20); Red Cell Distribution Width 13.9 % (11.8-14.3); White Blood Cell 5.5 10^3/uL (4.4-10.8)
[2021-05-20 11:32] LABS: Albumin 3.2 g/dL (3.4-5.0)
[2021-05-20 11:40] LABS: BUN/Creatinine Ratio 23.8; Bilirubin, Total 0.5 mg/dL (0.2-1.0)
[2021-05-20 11:41] LABS: Free T4 (Free Thyroxine) 1.06 ng/dL (0.89-1.76)
== END | disposition home or self-care (01) ==
LOC: LAB 08:19
PROVIDERS: ATTEND Internal Medicine Cardiovascular Disease
DX: D51.3 Other dietary vitamin B12 deficiency anemia (principal); I10 Essential (primary) hypertension; E11.9 Type 2 diabetes mellitus without complications; E55.9 Vitamin D deficiency, unspecified; D64.9 Anemia, unspecified; R00.2 Palpitations; R53.1 Weakness; R30.0 Dysuria
CPT/HCPCS: 36415; 80053; 80061; 81003; 82306; 82607; 83036; 84439; 84443; 85025; 87086

== ENCOUNTER → 2021-12-13 | Outpatient (CLI) | payer MEDICARE, BC ==
[2021-12-13 11:49] LABS: Basophils # (auto) 0 10 ^3/uL (0-0.2); Basophils % (auto) 0.8 % (0.0-2.0); Eosinophils # (auto) 0.3 10 ^3/uL (0-0.8); Hematocrit 35.4 % (36.0-46.0); Monocytes # (auto) 0.6 10 ^3/uL (0-1.3); Nucleated Red Blood Cells % 0.1 %; White Blood Cell 5.4 10^3/uL (4.4-10.8)
[2021-12-13 11:56] LABS: Eosinophils % (auto) 6.1 % (0.0-7.0); Hemoglobin 12.3 g/dL (12.2-16.2); Lymphocytes # (auto) 1.4 10 ^3/uL (0.4-5.4); Lymphocytes % (auto) 25.5 % (10.0-50.0); Mean Corpuscular Hemoglobin 34.7 pg (28.0-32.0); Mean Corpuscular Hgb Conc. 34.7 g/dL (32.0-36.0); Mean Corpuscular Volume 100.1 fL (80.0-100.0); Monocytes % (auto) 11.7 % (0.0-12.0); Neutrophils % (auto) 55.9 % (37.0-80.0); Red Blood Cells 3.54 10^6/uL (4.0-5.20); Red Cell Distribution Width 14.9 % (11.8-14.3)
[2021-12-13 12:04] LABS: Potassium 4.1 mmol/L (3.5-5.1)
[2021-12-13 12:10] LABS: Albumin 3.3 g/dL (3.4-5.0); BUN/Creatinine Ratio 10.5; Calcium 9.4 mg/dL (8.5-10.1)
[2021-12-13 12:12] LABS: Bilirubin, Total 0.4 mg/dL (0.2-1.0); Total Protein 6.8 g/dL (6.4-8.2)
== END | disposition home or self-care (01) ==
LOC: LAB 09:08
PROVIDERS: ATTEND Internal Medicine Cardiovascular Disease
DX: D64.9 Anemia, unspecified (principal); I10 Essential (primary) hypertension
CPT/HCPCS: 36415; 80053; 85025

== ENCOUNTER → 2022-03-21 | Outpatient (CLI) | payer MEDICARE, BC ==
[2022-03-21 11:44] LABS: Urine Blood Negative /uL (Negative); Urine Specific Gravity 1.016 (1.001-1.035)
[2022-03-21 11:51] LABS: Eosinophils # (auto) 0.1 10 ^3/uL (0-0.8); Lymphocytes # (auto) 1.5 10 ^3/uL (0.4-5.4); Nucleated Red Blood Cells % 0.1 %; White Blood Cell 7.6 10^3/uL (4.4-10.8)
[2022-03-21 11:54] LABS: Basophils # (auto) 0 10 ^3/uL (0-0.2); Basophils % (auto) 0.4 % (0.0-2.0); Hematocrit 39.4 % (36.0-46.0); Hemoglobin 13.7 g/dL (12.2-16.2); Lymphocytes % (auto) 19.5 % (10.0-50.0); Mean Corpuscular Hgb Conc. 34.8 g/dL (32.0-36.0); Mean Corpuscular Volume 100.5 fL (80.0-100.0); Monocytes % (auto) 13.1 % (0.0-12.0); Red Blood Cells 3.92 10^6/uL (4.0-5.20)
[2022-03-21 12:06] LABS: Free T4 (Free Thyroxine) 1.04 ng/dL (0.89-1.76)
[2022-03-21 12:21] LABS: Albumin 3.6 g/dL (3.4-5.0); BUN/Creatinine Ratio 18.7; Bilirubin, Total 0.5 mg/dL (0.2-1.0); Calcium 9.8 mg/dL (8.5-10.1); Total Protein 7.4 g/dL (6.4-8.2)
== END | disposition home or self-care (01) ==
LOC: LAB 09:00
PROVIDERS: ATTEND Internal Medicine Cardiovascular Disease
DX: I10 Essential (primary) hypertension (principal); E55.9 Vitamin D deficiency, unspecified; E11.9 Type 2 diabetes mellitus without complications; D51.3 Other dietary vitamin B12 deficiency anemia; D64.9 Anemia, unspecified; R00.2 Palpitations; R53.1 Weakness; R30.0 Dysuria
CPT/HCPCS: 36415; 80053; 80061; 81003; 82306; 82607; 83036; 84439; 84443; 85025; 87086

== ENCOUNTER → 2022-06-10 | Outpatient (CLI) | payer MEDICARE, BC ==
[2022-06-10 17:12] LABS: Albumin 3.5 g/dL (3.4-5.0); Calcium 9.2 mg/dL (8.5-10.1); Potassium 4.4 mmol/L (3.5-5.1)
[2022-06-10 17:16] LABS: BUN/Creatinine Ratio 14.8; Bilirubin, Total 0.4 mg/dL (0.2-1.0); Total Protein 6.9 g/dL (6.4-8.2); Uric Acid 4.8 mg/dL (2.6-6.0)
== END | disposition home or self-care (01) ==
LOC: LAB 11:38
PROVIDERS: ATTEND Internal Medicine
DX: M32.10 Systemic lupus erythematosus, organ or system involvement unspecified (principal); M10.9 Gout, unspecified; M05.9 Rheumatoid arthritis with rheumatoid factor, unspecified; R70.0 Elevated erythrocyte sedimentation rate; I10 Essential (primary) hypertension
CPT/HCPCS: 36415; 80053; 84550; 85652; 86431

== ENCOUNTER → 2022-07-18 | Outpatient (CLI) | payer MEDICARE, BC ==
[2022-07-18 12:01] LABS: Basophils # (auto) 0 10 ^3/uL (0-0.2); Basophils % (auto) 0.6 % (0.0-2.0); Eosinophils # (auto) 0.2 10 ^3/uL (0-0.8); Hematocrit 38.5 % (36.0-46.0); Lymphocytes # (auto) 1.2 10 ^3/uL (0.4-5.4); Monocytes # (auto) 0.7 10 ^3/uL (0-1.3); Neutrophils # (auto) 3.6 10 ^3/uL (1.6-8.6); Nucleated Red Blood Cells % 0.1 %; Red Blood Cells 3.74 10^6/uL (4.0-5.20)
[2022-07-18 12:05] LABS: Eosinophils % (auto) 2.7 % (0.0-7.0); Hemoglobin 12.9 g/dL (12.2-16.2); Lymphocytes % (auto) 21.2 % (10.0-50.0); Mean Corpuscular Hemoglobin 34.5 pg (28.0-32.0); Mean Corpuscular Hgb Conc. 33.5 g/dL (32.0-36.0); Mean Corpuscular Volume 102.9 fL (80.0-100.0); Monocytes % (auto) 11.6 % (0.0-12.0); Neutrophils % (auto) 63.9 % (37.0-80.0); Red Cell Distribution Width 13.9 % (11.8-14.3); White Blood Cell 5.6 10^3/uL (4.4-10.8)
[2022-07-18 12:19] LABS: Albumin 3.2 g/dL (3.4-5.0); Calcium 8.9 mg/dL (8.5-10.1); Potassium 3.5 mmol/L (3.5-5.1)
[2022-07-18 12:26] LABS: BUN/Creatinine Ratio 16.5; Bilirubin, Total 0.4 mg/dL (0.2-1.0); Total Protein 6.7 g/dL (6.4-8.2); Uric Acid 4.8 mg/dL (2.6-6.0)
== END | disposition home or self-care (01) ==
LOC: LAB 10:19
PROVIDERS: ATTEND Internal Medicine Cardiovascular Disease
DX: M10.9 Gout, unspecified (principal)
CPT/HCPCS: 36415; 80053; 84550; 85025; 85652

== ENCOUNTER → 2022-08-04 | Outpatient (CLI) | payer MEDICARE, BC | END | disposition home or self-care (01) | LOC: Rad HDHVI 14:17 | PROVIDERS: ATTEND Internal Medicine Cardiovascular Disease | DX: I08.0 Rheumatic disorders of both mitral and aortic valves (principal); I10 Essential (primary) hypertension; R07.89 Other chest pain | CPT/HCPCS: 93306 ==

== ENCOUNTER → 2022-08-10 | Outpatient (CLI) | payer MEDICARE, BC ==
[2022-08-10 11:09] LABS: Urine Blood Negative /uL (Negative); Urine Specific Gravity 1.011 (1.001-1.035)
[2022-08-10 11:16] LABS: Albumin 3.2 g/dL (3.4-5.0); Calcium 9.7 mg/dL (8.5-10.1); Potassium 4.1 mmol/L (3.5-5.1)
[2022-08-10 11:22] LABS: BUN/Creatinine Ratio 15.2; Basophils # (auto) 0.1 10 ^3/uL (0-0.2); Basophils % (auto) 1.1 % (0.0-2.0); Bilirubin, Total 0.8 mg/dL (0.2-1.0); Eosinophils # (auto) 0.3 10 ^3/uL (0-0.8); Hematocrit 39.9 % (36.0-46.0); Monocytes # (auto) 0.5 10 ^3/uL (0-1.3); Total Protein 6.7 g/dL (6.4-8.2)
[2022-08-10 11:27] LABS: Eosinophils % (auto) 4.4 % (0.0-7.0); Hemoglobin 13.6 g/dL (12.2-16.2); Lymphocytes # (auto) 1.6 10 ^3/uL (0.4-5.4); Lymphocytes % (auto) 27.9 % (10.0-50.0); Mean Corpuscular Hgb Conc. 34.1 g/dL (32.0-36.0); Mean Corpuscular Volume 102.6 fL (80.0-100.0); Neutrophils # (auto) 3.4 10 ^3/uL (1.6-8.6); Neutrophils % (auto) 58.6 % (37.0-80.0); Nucleated Red Blood Cells % 0.2 %; Red Blood Cells 3.89 10^6/uL (4.0-5.20); Red Cell Distribution Width 14.6 % (11.8-14.3); White Blood Cell 5.7 10^3/uL (4.4-10.8)
[2022-08-10 11:28] LABS: Free T4 (Free Thyroxine) 1.24 ng/dL (0.89-1.76)
== END | disposition home or self-care (01) ==
LOC: LAB 08:25
PROVIDERS: ATTEND Internal Medicine Cardiovascular Disease
DX: I10 Essential (primary) hypertension (principal); E55.9 Vitamin D deficiency, unspecified; D51.3 Other dietary vitamin B12 deficiency anemia; D64.9 Anemia, unspecified; E11.9 Type 2 diabetes mellitus without complications; R00.2 Palpitations; R53.1 Weakness; R30.0 Dysuria
CPT/HCPCS: 36415; 80053; 80061; 81003; 82306; 82607; 83036; 84439; 84443; 85025; 87086

== ENCOUNTER → 2022-11-22 | Outpatient (CLI) | payer MEDICARE, BC ==
[~2022-11-22] VITALS: Ht 160 cm; Wt 68.5 kg
== END | disposition home or self-care (01) ==
LOC: Rad HDHVI 08:04
PROVIDERS: ATTEND Internal Medicine Cardiovascular Disease
DX: R00.2 Palpitations (principal); I25.10 Atherosclerotic heart disease of native coronary artery without angina pectoris; R07.89 Other chest pain; I10 Essential (primary) hypertension; E78.5 Hyperlipidemia, unspecified; I25.2 Old myocardial infarction; Z82.49 Family history of ischemic heart disease and other diseases of the circulatory system
CPT/HCPCS: 78452; 93017; 96374; A9500

== ENCOUNTER → 2023-05-17 | Outpatient (CLI) | payer MEDICARE, BC | END | disposition home or self-care (01) | LOC: Rad HDHVI 09:53 | PROVIDERS: ATTEND Internal Medicine Cardiovascular Disease | DX: M16.11 Unilateral primary osteoarthritis, right hip (principal); M25.551 Pain in right hip; K57.30 Diverticulosis of large intestine without perforation or abscess without bleeding | CPT/HCPCS: 73700 ==

== ENCOUNTER → 2024-04-26 | Outpatient (CLI) | payer MEDICARE, BC | END | disposition home or self-care (01) | LOC: Rad HDHVI 12:19 | PROVIDERS: ATTEND Internal Medicine Cardiovascular Disease | DX: J06.9 Acute upper respiratory infection, unspecified (principal) | CPT/HCPCS: 71046 ==

== ENCOUNTER → 2024-04-30 | Outpatient (CLI) | payer MEDICARE, BC ==
[2024-04-30 07:55] LABS: Urine Blood Negative /uL (Negative); Urine Clarity Clear (Clear); Urine Color Colorless (Yellow); Urine Protein, UAD Negative (Negative); Urine Specific Gravity 1.007 (1.001-1.035); Urine Urobilinogen Normal (Negative); Urine pH 6.5 (5.0-9.0)
[2024-04-30 07:56] LABS: Basophils # (auto) 0 10 ^3/uL (0-0.2); Basophils % (auto) 0.2 % (0.0-2.0); Eosinophils # (auto) 0 10 ^3/uL (0-0.8); Eosinophils % (auto) 0.2 % (0.0-7.0); Hematocrit 38.2 % (36.0-46.0); Hemoglobin 13.5 g/dL (12.2-16.2); Lymphocytes # (auto) 1.9 10 ^3/uL (0.4-5.4); Lymphocytes % (auto) 19.6 % (10.0-50.0); Mean Corpuscular Hemoglobin 36.1 pg (28.0-32.0); Mean Corpuscular Hgb Conc. 35.3 g/dL (32.0-36.0); Mean Corpuscular Volume 102.4 fL (80.0-100.0); Monocytes % (auto) 10.4 % (0.0-12.0); Neutrophils # (auto) 6.9 10 ^3/uL (1.6-8.6); Neutrophils % (auto) 69.6 % (37.0-80.0); Red Blood Cells 3.73 10^6/uL (4.0-5.20); Red Cell Distribution Width 14.7 % (11.8-14.3); White Blood Cell 9.8 10^3/uL (4.4-10.8)
[2024-04-30 08:45] LABS: Alanine Aminotransferase 41 U/L (7-40); Albumin 4.3 g/dL (3.2-4.8); Alkaline Phosphatase 94 U/L (46-116); Anion Gap 6 (5-15); Aspartate Aminotransferase 29 U/L (13-40); BUN/Creatinine Ratio 18.5 (10.0-20.0); Bilirubin, Direct 0.3 mg/dL (<0.3); Blood Urea Nitrogen 15 mg/dL (9-23); Calcium 9.9 mg/dL (8.7-10.4); Carbon Dioxide 26 mmol/L (20-30); Chloride 106 mmol/L (98-107); Cholesterol 203 mg/dL (< 200); Glucose 107 mg/dL (74-106); HDL Cholesterol 109 mg/dL (40-59); LDL Cholesterol 90 mg/dL (< 100); Potassium 4.2 mmol/L (3.5-5.1); Sodium 138 mmol/L (136-145); Triglycerides 60 mg/dL (< 150)
[2024-04-30 08:46] LABS: Bilirubin, Total 0.7 mg/dL (0.2-1.0); Total Protein 6.6 g/dL (5.7-8.2)
== END | disposition home or self-care (01) ==
LOC: LAB 07:28
PROVIDERS: ATTEND Internal Medicine Cardiovascular Disease
DX: E11.9 Type 2 diabetes mellitus without complications (principal); D51.3 Other dietary vitamin B12 deficiency anemia; E55.9 Vitamin D deficiency, unspecified; I10 Essential (primary) hypertension; R00.2 Palpitations; R53.1 Weakness; R30.0 Dysuria
CPT/HCPCS: 36415; 80048; 80061; 80076; 81003; 83036; 84443; 85025

== ENCOUNTER → 2024-05-21 | Outpatient (CLI) | payer MEDICARE, BC | END | disposition home or self-care (01) | LOC: Rad HDHVI 08:54 | PROVIDERS: ATTEND Internal Medicine Cardiovascular Disease | DX: I10 Essential (primary) hypertension (principal); E78.5 Hyperlipidemia, unspecified | CPT/HCPCS: 93306 ==

== ENCOUNTER → 2024-09-02 | Outpatient (CLI) | payer MEDICARE, BC ==
[2024-09-02 12:38] LABS: Basophils # (auto) 0 10 ^3/uL (0-0.2); Eosinophils # (auto) 0.2 10 ^3/uL (0-0.8); Eosinophils % (auto) 1.1 % (0.0-7.0); Hemoglobin 13.3 g/dL (12.2-16.2); Lymphocytes # (auto) 0.7 10 ^3/uL (0.4-5.4); Mean Corpuscular Volume 102.1 fL (80.0-100.0); Monocytes # (auto) 1.3 10 ^3/uL (0-1.3)
[2024-09-02 12:41] LABS: Basophils % (auto) 0.3 % (0.0-2.0); Hematocrit 39.1 % (36.0-46.0); Lymphocytes % (auto) 5.3 % (10.0-50.0); Mean Corpuscular Hemoglobin 34.8 pg (28.0-32.0); Mean Corpuscular Hgb Conc. 34.1 g/dL (32.0-36.0); Monocytes % (auto) 9.8 % (0.0-12.0); Neutrophils # (auto) 11.4 10 ^3/uL (1.6-8.6); Neutrophils % (auto) 83.5 % (37.0-80.0); Platelet Count (auto) 258 10^3/uL (140-450); Red Blood Cells 3.83 10^6/uL (4.0-5.20); Red Cell Distribution Width 13.2 % (11.8-14.3); White Blood Cell 13.7 10^3/uL (4.4-10.8)
[2024-09-02 12:46] LABS: Urine Blood Negative /uL (Negative); Urine Clarity Turbid (Clear); Urine Color Yellow (Yellow); Urine Protein, UAD 1+ (Negative); Urine Specific Gravity 1.017 (1.001-1.035); Urine Urobilinogen 4 mg/dL (Negative)
[2024-09-02 13:27] LABS: Alanine Aminotransferase 195 U/L (7-40); Alkaline Phosphatase 548 U/L (46-116); Anion Gap 10 (5-15); BUN/Creatinine Ratio 15.8 (10.0-20.0); Blood Urea Nitrogen 15 mg/dL (9-23); Calcium 10.4 mg/dL (8.7-10.4); Carbon Dioxide 21 mmol/L (20-31); Chloride 106 mmol/L (98-107); Glucose 108 mg/dL (74-106); Sodium 137 mmol/L (136-145)
[2024-09-02 13:28] LABS: Albumin 4.2 g/dL (3.2-4.8); Aspartate Aminotransferase 120 U/L (13-40); Bilirubin, Direct 1.2 mg/dL (<0.3); Bilirubin, Total 1.8 mg/dL (0.2-1.0); Total Protein 7.2 g/dL (5.7-8.2)
[2024-09-02 13:30] LABS: Erythrocyte Sedimentation Rate 1 mm/hr (0-20)
[2024-09-02 13:36] LABS: CRP High Sensitivity 14.07 mg/dL (<1.0)
[2024-09-03 08:15] LABS: Triglycerides 95 mg/dL (< 150)
[2024-09-03 08:16] LABS: LDL Cholesterol 105 mg/dL (< 100)
[2024-09-03 08:17] LABS: Cholesterol 152 mg/dL (< 200); HDL Cholesterol 34 mg/dL (40-59)
== END | disposition home or self-care (01) ==
LOC: LAB 12:01
PROVIDERS: ATTEND Internal Medicine Cardiovascular Disease
DX: E11.9 Type 2 diabetes mellitus without complications (principal); I10 Essential (primary) hypertension; E55.9 Vitamin D deficiency, unspecified; R53.1 Weakness; M32.9 Systemic lupus erythematosus, unspecified; D64.9 Anemia, unspecified
CPT/HCPCS: 36415; 80048; 80061; 80076; 81003; 83036; 84443; 85025; 85652; 86141

== ENCOUNTER → 2024-09-18 | Outpatient (CLI) | payer MEDICARE, BC ==
[2024-09-18 10:30] VITALS: BP_SYST 126; BP_SYST 165; BP_DIAS 58; BP_DIAS 70; PULSE 98; RESP 20; O2SAT 98
[2024-09-18] MEDS: TRIAMCINOLONE 40MG/ML 1ML VIAL IM ONE (10:30)
[2024-09-18] MEDS: cefTRIAXone 1GM/50ML D5W 50 ML IV ONE ×2 (10:30→10:43)
[2024-09-18] MEDS: MVI in SODIUM CHLORIDE 0.9% 500 ML IVB ONE (10:30)
[2024-09-18] MEDS: MULTIPLE VIT 10 ML IV ONE (10:43)
--- NOTE | 2024-09-18 13:33 | DVH ---
CT LUMBAR SPINE CLINICAL HISTORY: LBP Low back pain. TECHNIQUE: TECHNIQUE: Axial images of the lumbar spine were obtained and reformatted in coronal and sagittal pl anes. All CT scans at this medical facility are performed using dose modulation techniques as appropriate t o a performed exam including the following: Automated exposure control was utilized; adjustment of th e MA and/or KV according to patient size; and use of iterative reconstruction technique. CT Dose: CTDI volume is 18.7 mGy. Dose-length product is 838 mGy*cm Comparison: None. FINDINGS: There is left posterior hardware fusion at the L5-S1 level with bilateral pedicle screws and fusion r od. The hardware appears intact without evidence of loosening. There is bony graft intervertebral fus ion at the L5-S1 disc level. The osseous structures are demineralized. There is no evidence of an acute fracture or dislocation. T here is scoliotic curvature of the lumbar spine with levoconvex scoliosis of the lower lumbar spine w ith the apex at the L3-L4 level. There are multilevel advanced degenerative disc changes with disc he ight loss and vacuum disc phenomena with marginal osteophytosis. There is multilevel hypertrophic fac et arthropathy, worst at L3-L4 and L4-L5. There are disc protrusions/ bulges at multiple levels, most notably at L3-L4 and L4-L5. At L4-L5 there is moderate to severe spinal canal stenosis. There is severe left foraminal stenosis. At L3-L4 there is lspi-my-juowcugn canal stenosis. There is moderate right neural foraminal stenosis. The paraspinal soft tissues appear within normal limits. IMPRESSION: 1. Uncomplicated appearance of left posterior and interbody fusion at the L5-S1 level. 2. The osseous structures are demineralized. There is no evidence of an acute fracture or dislocation . 3. Scoliotic curvature of the lumbar spine with multilevel degenerative changes as described above. F urther evaluation with MRI lumbar spine is recommended. HS:Y
--- NOTE | 2024-09-18 14:12 | DVH ---
CT THORACIC SPINE Clinical History: Back pain. Technique: Multiple contiguous axial images of the thoracic spine without contrast. These images were reconstruc tyler to generate coronal and sagittal reformats. Radiation Dose Information: CT Dose: CTDI volume is 18.68 mGy. Dose-length product is 838.12 mGy*cm Comparison: None. Findings: There is dextroconvex curvature of the lower thoracic spine. The osseous structures are demineralized . There is no evidence of an acute fracture or dislocation. The thoracic vertebral body heights are maintained. The visualized paraspinal soft tissues appear within normal limits. There are multilevel degenerative disc changes with disc space narrowing and small marginal osteophyt es. At T12-L1 there is central disc extrusion with superior migration indenting the ventral thecal sac. T here is no significant thoracic disc herniation at the other disc levels. There is no significant spi nal canal stenosis. There is no significant bony foraminal stenosis. Impression: 1. Demineralized osseous structures. There is no acute osseous abnormality. 2. Dextroconvex curvature of the lower thoracic spine. There are multilevel degenerative disc change s in the thoracic spine. 3. There is a central disc extrusion with superior migration at T12-L1. There is no significant spina l canal or bony neural foraminal stenosis. HS:Y
== END | disposition home or self-care (01) ==
LOC: Rad HDHVI 10:40
PROVIDERS: ATTEND Internal Medicine Cardiovascular Disease
DX: J06.0 Acute laryngopharyngitis (principal); E86.0 Dehydration; M47.814 Spondylosis without myelopathy or radiculopathy, thoracic region; M47.816 Spondylosis without myelopathy or radiculopathy, lumbar region; M51.25 Other intervertebral disc displacement, thoracolumbar region; I10 Essential (primary) hypertension; E11.9 Type 2 diabetes mellitus without complications
CPT/HCPCS: 72128; 72131; 96365; 96366; 96367; 96372; G0463; J0696; J7040; 96360; 96361

== ENCOUNTER → 2024-09-20 | Outpatient (CLI) | payer MEDICARE, BC | END | disposition home or self-care (01) | LOC: LAB 09:28 | PROVIDERS: ATTEND Internal Medicine Cardiovascular Disease | DX: N39.0 Urinary tract infection, site not specified (principal) | CPT/HCPCS: 87086 ==

== ENCOUNTER → 2024-09-25 | Outpatient (CLI) | payer MEDICARE, BC ==
--- NOTE | 2024-09-25 11:30 | DVH ---
XY CHEST TWO VIEWS ROUTINE CLINICAL HISTORY: SOB COMPARISON: XY CHEST TWO VIEWS ROUTINE on DOS: 05/17/24, XY CHEST TWO VIEWS ROUTINE on DOS: 04/26/24, CH EST TWO VIEWS ROUTINE on DOS: 09/04/19 TECHNIQUE: Frontal and lateral view of the chest was obtained FINDINGS: Lines and Tubes: None Lungs: No focal consolidation. Pleura: No effusion. No pneumothorax. Cardiomediastinal contours: Unremarkable Bones: No acute osseous abnormality. IMPRESSION: No acute cardiopulmonary disease.
== END | disposition home or self-care (01) ==
LOC: Rad HDHVI 10:41
PROVIDERS: ATTEND Internal Medicine Cardiovascular Disease
DX: R06.02 Shortness of breath (principal); R42 Dizziness and giddiness
CPT/HCPCS: 71046

== ENCOUNTER 2024-10-07 10:00 | Inpatient (IN) | payer MEDICARE, BC ==
[~2024-10-07] VITALS: Ht 162.6 cm; Wt 66.1 kg
[2024-10-07] MEDS: SODIUM CHLORIDE 0.9% 500 ML IV ONE (10:50)
[2024-10-07 10:53] VITALS: RESP 18; O2SAT 98
[2024-10-07 11:12] LABS: Basophils # (auto) 0 10 ^3/uL (0-0.2); Basophils % (auto) 0.2 % (0.0-2.0); Eosinophils # (auto) 0 10 ^3/uL (0-0.8); Eosinophils % (auto) 0.1 % (0.0-7.0); Hematocrit 36.9 % (36.0-46.0); Hemoglobin 11.7 g/dL (12.2-16.2); Lymphocytes # (auto) 0.7 10 ^3/uL (0.4-5.4); Lymphocytes % (auto) 2.8 % (10.0-50.0); Mean Corpuscular Hemoglobin 32.1 pg (28.0-32.0); Mean Corpuscular Hgb Conc. 31.8 g/dL (32.0-36.0); Monocytes # (auto) 1.7 10 ^3/uL (0-1.3); Monocytes % (auto) 7.2 % (0.0-12.0); Neutrophils # (auto) 21.2 10 ^3/uL (1.6-8.6); Neutrophils % (auto) 89.7 % (37.0-80.0); Nucleated Red Blood Cells % 0.1 %; Platelet Count (auto) 212 10^3/uL (140-450); Red Blood Cells 3.66 10^6/uL (4.0-5.20); Red Cell Distribution Width 14.9 % (11.8-14.3); White Blood Cell 23.6 10^3/uL (4.4-10.8)
[2024-10-07 11:19] LABS: Anion Gap 11 (5-15); Potassium 3.9 mmol/L (3.5-5.1); Sodium 137 mmol/L (136-145)
[2024-10-07 11:20] LABS: Calcium 10.1 mg/dL (8.7-10.4)
[2024-10-07 11:25] LABS: BUN/Creatinine Ratio 20.7 (10.0-20.0); Blood Urea Nitrogen 19 mg/dL (9-23); Carbon Dioxide 18 mmol/L (20-31); Chloride 108 mmol/L (98-107); Glucose 171 mg/dL (74-106)
--- NOTE | 2024-10-07 12:18 | DVH ---
History: fall Comparison Study: None available at time of dictation. Technique: Multidetector spiral CT of the pelvis was performed from iliac crests to pubic symphysis. 100 cc of intravenous contrast was administered during this examination. Portal venous imaging was obtained. Axial, coronal and sagittal multiplanar reformats were performed by the technologist on a separate workstation. Radiation Dose : CT Dose: CTDI volume is 16.06 mGy. Dose-length product is 526.98 mGy*cm Findings: orthopedic hardware in the left LL 5 and S1 vertebral bodies. Degenerative disc disease is present at these levels. No fractures of the bony ring of the pelvis, sacrum, or coccyx. No fractures of the hip joints No diastasis of the sacroiliac joints No soft tissue injury in the true pelvis. There is vascular calcification in the iliac arteries. IMPRESSION: 1. No acute pelvic finding. END IMPRESSION:
--- NOTE | 2024-10-07 13:51 | ED.PDOC ---
History of Present Illness HPI Comments 78 y/o F is BIBA w/spouse for c/o headache and skin tear to right elbow s/p mechanical fall and injury, today. Patient is reported to fell and injured herself, this morning. She is stated to have hit her head against a toilet and landed on and scrapping her right elbow then without lost of consciousness. Jaimee weston was also reported to have been complaining generalized weakness for the past 2x months. She has no reported additional injuries, dizziness, numbness, or other associated symptoms or modifiers at this time. Chief Complaint: General Weakness Time Seen by MD: 11:00 Primary Care Provider: JOSE ANGEL Reviewed Notes: Nurses Notes, Seater Grinder Notes, Medications, Allergies Allergies: Coded Allergies: Ciprofloxacin (Verified Allergy, Unknown, 02/21/18) Iodine (Verified Allergy, Unknown, 06/23/17) Simvastatin (Verified Allergy, Unknown, 02/21/18) Sulfa Antibiotics (Verified Allergy, Unknown, 06/23/17) Information Source: Patient, Emergency Med Personnel Mode of Arrival: EMS Severity: Moderate Timing: Hours Duration: Since onset Prehospital treatment: 12 Lead EKG, Clock And Watch Hands Mounter Past Medical History PAST MEDICAL HISTORY: Denies Surgical History: Denies all surgeries MANTEL CRAFTSMAN History: Denies all MANTEL CRAFTSMAN Hx Family History Family History: Unknown Social History Smoker: Non-Smoker Alcohol: Denies ETOH Use Drugs: Denies Drug Use Lives In: Home Constitutional: reports: weakness; denies: chills, diaphoresis, fatigue, fever, malaise, sweats, others EENTM: denies: blurred vision, double vision, ear bleeding, ear discharge, ear drainage, ear pain, ear ringing, eye pain, eye redness, hearing loss, mouth pain, mouth swelling, nasal discharge, nose bleeding, nose congestion, nose pain, photophobia, tearing, throat pain, throat swelling, voice changes, others Respiratory: denies: cough, hemoptysis, orthopnea, SOB at rest, shortness of breath, SOB with excertion, stridor, wheezing, others Cardiovascular: denies: chest pain, dizzy spells, diaphoresis, Dyspnea on exertion, edema, irregular heart beat, left arm pain, lightheadedness, palpitations, PND, syncope, others Gastrointestinal: denies: abdomen distended, abdominal pain, blood streaked bowels, constipated, diarrhea, dysphagia, difficulty swallowing, hematemesis, melena, nausea, poor appetite, poor fluid intake, rectal bleeding, rectal pain, vomiting, others Genitourinary: denies: abnormal vagina bleeding, burning, dyspareunia, dysuria, flank pain, frequency, hematuria, incontinence, pain, , vagina discharge, urgency, others Neurological: reports: headache; denies: dizziness, fainting, left sided numbness, left sided weakness, numbness, paresthesia, pre-existing deficit, right sided numbness, right sided weakness, seizure, speech problems, tingling, tremors, weakness, others Musculoskeletal: denies: back pain, gout, joint pain, joint swelling, muscle pain, muscle stiffness, neck pain, others Integumetry: reports: wounds (abrasion wound to right elbow ); denies: bruises, change in color, change in hair/nails, dryness, laceration, lesions, lumps, ra sh, others Allergic/Immunocompromised: denies: Difficulty Healing, Frequent Infections, Hives, Itching, others Hematologic/Lymphatic: denies: anemia, blood clots, easy bleeding, easy bruising, swollen glands, others Endocrine: denies: excessive hunger, excessive sweating, excessive thirst, excessive urination, flushing, intolerance to cold, intolerance to heat, unexplained weight gain, unexplained weight loss, others Psychiatric: denies: anxiety, bipolar disorder, depression, hopeless, panic disorder, schizophrenia, sleepless, suicidal, others All Other Systems: Reviewed and Negative Physical Exam General Appearance: Moderate Distress HEENT: Normal ENT Inspection, Pharynx Normal, TMs Normal Neck: Full Range of Motion, Non-Tender, Normal, Normal Inspection Respiratory: Chest Non-Tender, Lungs Clear, No Accessory Muscle Use, No Respiratory Distress, Normal Breath Sounds Cardiovascular: No Edema, No JVD, No Murmur, No Gallop, Normal Peripheral Pulses, Regular Rate/Rhythm Breast Exam: Deferred Gastrointestinal: No Organomegaly, Non Tender, No Pulsatile Mass, Normal Bowel Sounds, Soft Genitalia: Deferred Pelvic: Deferred Rectal: Deferred Extremities: No calf tenderness, Normal capillary refill, No pedal edema Musculoskeletal : Apperance: Normal Neurologic: Alert, electrical and instrumentation mechanic II-XII nml as Tested, Motor Weakness, Normal Affect, Normal Mood, No Sensory Deficits Cerebellar Function: Unable to Test Reflexes: Normal Skin: Dry, Pallor, Warm Lymphatic: No Adenopathy Was a procedure done? Was a procedure done?: No Differential Dx Considerations may include: fractures, contusions, dislocation, bruising, closed head injury X-Ray, Labs, Meds, VS Vital Signs Date Time Temp Pulse Resp B/P (MAP) Pulse Ox O2 Delivery O2 Flow Rate FiO2 10/07/24 18:37 78 16 147/65 (92) 96 10/07/24 17:09 97.6 77 16 118/66 (83) 96 97.6 10/07/24 14:56 84 18 116/68 (84) 98 10/07/24 10:53 18 98 Room Air* 0 21 10/07/24 10:08 98.0 114 24 103/66 (78) 99 10/07/24 10:05 110 Lab Test 10/07/24 17:08 10/07/24 10:57 Range/Units Urine Color Yellow Yellow Urine Clarity Turbid H Clear Urine pH 6.0 5.0-9.0 Urine Specific [place] 1.014 1.001-1.035 Urine Protein Trace H Negative Urine Ketones Negative Negative Urine Blood Negative Negative /uL Urine Nitrite Negative Negative Urine Bilirubin Negative Negative Urine Urobilinogen 2 H Negative mg/dL Urine Leukocyte Esterase Trace Negative /uL Urine RBC 9 0 - 4 /hpf Urine WBC 13 0 - 5 /hpf Urine Squamous Epithelial Cells Few <5 /hpf Urine Bacteria Few H None Seen /hpf Urine Mucus Few None Seen Urine Glucose Normal Normal mg/dL White Blood Count 23.6 H 4.4-10.8 10^3/uL Red Blood Count 3.66 L 4.0-5.20 10^6/uL Hemoglobin 11.7 L 12.2-16.2 g/dL Hematocrit 36.9 36.0-46.0 % Mean Corpuscular Volume 101.0 H 80.0-100.0 fL Mean Corpuscular Hemoglobin 32.1 H 28.0-32.0 pg Mean Corpuscular Hemoglobin Concent 31.8 L 32.0-36.0 g/dL Red Cell Distribution Width 14.9 H 11.8-14.3 % Platelet Count 212 140-450 10^3/uL Mean Platelet Volume 9.0 6.9-10.8 fL Neutrophils (%) (Auto) 89.7 H 37.0-80.0 % Lymphocytes (%) (Auto) 2.8 L 10.0-50.0 % Monocytes (%) (Auto) 7.2 0.0-12.0 % Eosinophils (%) (Auto) 0.1 0.0-7.0 % Basophils (%) (Auto) 0.2 0.0-2.0 % Neutrophils # (Auto) 21.2 H 1.6-8.6 10 ^3/uL Lymphocytes # (Auto) 0.7 0.4-5.4 10 ^3/uL Monocytes # (Auto) 1.7 H 0-1.3 10 ^3/uL Eosinophils # (Auto) 0 0-0.8 10 ^3/uL Basophils # (Auto) 0 0-0.2 10 ^3/uL Nucleated Red Blood Cells 0.1 % Sodium Level 137 136-145 mmol/L Potassium Level 3.9 3.5-5.1 mmol/L Chloride Level 108 H 98-107 mmol/L Carbon Dioxide Level 18 L 20-31 mmol/L Anion Gap 11 5-15 Blood Urea Nitrogen 19 9-23 mg/dL Creatinine 0.92 0.550-1.02 mg/dL Glomerular Filtration Rate Calc 63 >90 mL/min BUN/Creatinine Ratio 20.7 H 10.0-20.0 Serum Glucose 171 H 74-106 mg/dL Calcium Level 10.1 8.7-10.4 mg/dL Current Medications Medications (Trade) Dose Ordered Sig/Keven Route Start Time Stop Time Status Last Admin Sodium Chloride 500 ml @ 500 mls/hr Q1H ONCE IV 10/07/24 10:30 10/07/24 11:29 DC 10/07/24 10:50 Ibuprofen (Motrin Tablet) 400 mg ONCE ONCE PO 10/07/24 14:15 10/07/24 14:16 DC 10/07/24 14:10 PROCEDURE(s): PL2CT - PELVIS WO CONTRAST IMPRESSION: 1. No acute pelvic finding. The patient was given a Hep-Lock with normal saline at 500 cc The patient was also given ibuprofen 400 mg by mouth for the pain She states that her headache is somewhat better. The patient's CBC shows an elevated white blood cell count is 23.6 The rest of the CBC and chemistry panel are within normal limits The urine test is positive for UTI The patient is being placed on Rocephin 1 g IV piggyback The patient is being admitted at this time Images Reviewed?: Images reviewed and evaluated by me Time of 1ST Reevaluation: 11:30 Reevaluation 1ST: Unchanged Patient Education/Counseling: Diagnosis, Treatment, Prognosis Family Education/Counseling: Diagnosis, Treatment, Prognosis Departure 1 Departure Time of Disposition: 17:28 Impression: Primary Impression: Generalized weakness Additional Impressions: Tension headache UTI (urinary tract infection) Qualified Codes: N30.00 - Acute cystitis without hematuria Disposition: ADMITTED INPATIENT Admit to: Tele Condition: Fair Critical Care Note Critical Care Time?: Yes (35 min-critical care time only) Stability Stability form required: Yes Unstable for transfer: Telemetry monitoring (Telemetry monitoring required), ED Physician Assesment (Clinical assesment) Heart Score Heart Score: Heart Score Response (Comments) Value History N/A 0 EKG N/A 0 Age N/A 0 Risk Factors N/A 0 Troponin N/A 0 Total 0 I personally scribed for LENI BERMUDEZ MD ([email or web address]) on 10/07/24 at 13:51. Electronically submitted by Chino Graves [email or web address]). LENI BERMUDEZ MD Oct 07, 2024 13:51
[2024-10-07] MEDS: ONDANSETRON HCL 4 MG/2 ML VIAL IV ONE (14:04)
[2024-10-07] MEDS: MORPHINE SULFATE INJ 2 MG/ml SYRG IV ONE (14:04)
[2024-10-07] MEDS: IBUPROFEN 400 MG TAB PO ONE (14:10)
[2024-10-07 17:36] LABS: Urine Bacteria FEW /hpf (None Seen); Urine Blood Negative /uL (Negative); Urine Clarity Turbid (Clear); Urine Color Yellow (Yellow); Urine Mucus FEW (None Seen); Urine Protein, UAD TRACE (Negative); Urine Specific Gravity 1.014 (1.001-1.035); Urine Squamous Epithelial Cell FEW /hpf (<5); Urine Urobilinogen 2 mg/dL (Negative); Urine WBC 13 /hpf (0 - 5)
[2024-10-07] MEDS ORDERED: HYDROcodone-ACET 5/325MG TAB PO PRN (19:00)
--- NOTE | 2024-10-07 19:10 | ECG ---
[facility] Test Date: 2024-10-07 Test Time: 10:05:34 Pat Name: JEFERSON RICARDO Department: ER Room: 0218 Gender: F Release Manager: SIMONE : 1945 Requested By: LENI BERMUDEZ Order Number: [id number] Reading MD: Mason Hutchison Measurements Intervals [place] Rate: 110 P: 29 UT: 163 QRS: -33 QRSD: 89 T: 34 QT: 343 QTc: 465 Interpretive Statements Sinus tachycardia Inferior infarct, old Anterior infarct, old Electronically Signed On 10-08-2024 13:09:09 PST by Mason Hutchison Please click the below link to view image of tracing.
[2024-10-07] MEDS: cefTRIAXone 2GM/50ML D5W 50 ML IV ONE (19:12)
--- NOTE | 2024-10-07 21:13 | DVHHP2 ---
History of Present Illness Reason for Visit: Generalized weakness History of Present Illness 78-year-old female presents for evaluation of generalized weakness. Patient reports med today while in the restroom her legs gave out and she fell hurting her lower back and her head against the toilet. She denies loss of consciousnes s. Reports mild lower back pain. Denies lower extremity numbness or tingling sensation. No chest pain or shortness for breath. No other acute complaints reported. Past Medical History Hypertension Past Surgical History Denies Family History Noncontributory Smoke: No ALCOHOL: none Drugs: None Lives: with Family Review of Systems Review of Systems Review of systems are currently negative otherwise addressed in HPI. Allergies: Coded Allergies: Ciprofloxacin (Verified Allergy, Unknown, 02/21/18) Iodine (Verified Allergy, Unknown, 06/23/17) Simvastatin (Verified Allergy, Unknown, 02/21/18) Sulfa Antibiotics (Verified Allergy, Unknown, 06/23/17) Medications Current Medications Medications Dose Ordered Sig/Keven Route Start Time Stop Time Status Last Admin Dose Admin Metoprolol Succinate 50 mg DAILY PO 10/08/24 10:00 Acetaminophen/ Hydrocodone Bitart 1 tab Q4HP PRN PO 10/07/24 19:00 Ondansetron HCl 4 mg Q4HP PRN IV 10/07/24 19:00 Enoxaparin Sodium 40 mg DAILY SC 10/08/24 10:00 Acetaminophen 650 mg Q6HP PRN PO 10/07/24 19:00 Ceftriaxone Sodium 50 ml @ 100 mls/hr DAILY@09 IV 10/08/24 09:00 Exam Vital Signs Vital Signs Date Time Temp Pulse Resp B/P (MAP) Pulse Ox O2 Delivery O2 Flow Rate FiO2 10/07/24 20:00 78 23 139/77 (97) 96 10/07/24 19:30 Room Air* 0 21 10/07/24 17:09 97.6 97.6 Exam Gen: 78-year-old female in no apparent distress. Skin: Warm, dry, normal color and texture, no rash. HEENT: Normocephalic atraumatic, mucous membranes moist and pink. Neck: Cervical and supraclavicular nodes normal without enlargement, trachea is midline, thyroid gland is normal without masses. Pulmonary: Clear to auscultation and percussion bilaterally. Cardiac: Regular rate and rhythm. No murmur Abdomen: Soft, nontender, nondistended, bowel sounds present all 4 quadrants, no guarding, no rigidity, no organomegaly. Extremities: No cyanosis, clubbing, no edema Neuro: Cranial nerves II through XII grossly intact, normal affect and speech, no focal motor deficits. Labs/Xrays ORDERING PHYSICIAN: LENI BERMDUEZ MD PROCEDURE(s): PL2CT - PELVIS WO CONTRAST REASON: fall ORDER NUMBER(s): [id number], ACCESSION NUMBER(s): [id number] History: fall Comparison Study: None available at time of dictation. Technique: Multidetector spiral CT of the pelvis was performed from iliac crests to pubic symphysis. 100 cc of intravenous contrast was administered during this examination. Portal venous imaging was obtained. Axial, coronal and sagittal multiplanar reformats were performed by the technologist on a separate workstation. Radiation Dose : CT Dose: CTDI volume is 16.06 mGy. Dose-length product is 526.98 mGy*cm Findings: orthopedic hardware in the left LL 5 and S1 vertebral bodies. Degenerative disc disease is present at these levels. No fractures of the bony ring of the pelvis, sacrum, or coccyx. No fractures of the hip joints No diastasis of the sacroiliac joints No soft tissue injury in the true pelvis. There is vascular calcification in the iliac arteries. IMPRESSION: 1. No acute pelvic finding. END IMPRESSION: Labs Test 10/07/24 19:14 10/07/24 17:08 10/07/24 10:57 Range/Units Lactic Acid Level 1.0 0.4-2.0 mmol/L Urine Color Yellow Yellow Urine Clarity Turbid H Clear Urine pH 6.0 5.0-9.0 Urine Specific [place] 1.014 1.001-1.035 Urine Protein Trace H Negative Urine Ketones Negative Negative Urine Blood Negative Negative /uL Urine Nitrite Negative Negative Urine Bilirubin Negative Negative Urine Urobilinogen 2 H Negative mg/dL Urine Leukocyte Esterase Trace Negative /uL Urine RBC 9 0 - 4 /hpf Urine WBC 13 0 - 5 /hpf Urine Squamous Epithelial Cells Few <5 /hpf Urine Bacteria Few H None Seen /hpf Urine Mucus Few None Seen Urine Glucose Normal Normal mg/dL White Blood Count 23.6 H 4.4-10.8 10^3/uL Red Blood Count 3.66 L 4.0-5.20 10^6/uL Hemoglobin 11.7 L 12.2-16.2 g/dL Hematocrit 36.9 36.0-46.0 % Mean Corpuscular Volume 101.0 H 80.0-100.0 fL Mean Corpuscular Hemoglobin 32.1 H 28.0-32.0 pg Mean Corpuscular Hemoglobin Concent 31.8 L 32.0-36.0 g/dL Red Cell Distribution Width 14.9 H 11.8-14.3 % Platelet Count 212 140-450 10^3/uL Mean Platelet Volume 9.0 6.9-10.8 fL Neutrophils (%) (Auto) 89.7 H 37.0-80.0 % Lymphocytes (%) (Auto) 2.8 L 10.0-50.0 % Monocytes (%) (Auto) 7.2 0.0-12.0 % Eosinophils (%) (Auto) 0.1 0.0-7.0 % Basophils (%) (Auto) 0.2 0.0-2.0 % Neutrophils # (Auto) 21.2 H 1.6-8.6 10 ^3/uL Lymphocytes # (Auto) 0.7 0.4-5.4 10 ^3/uL Monocytes # (Auto) 1.7 H 0-1.3 10 ^3/uL Eosinophils # (Auto) 0 0-0.8 10 ^3/uL Basophils # (Auto) 0 0-0.2 10 ^3/uL Nucleated Red Blood Cells 0.1 % Sodium Level 137 136-145 mmol/L Potassium Level 3.9 3.5-5.1 mmol/L Chloride Level 108 H 98-107 mmol/L Carbon Dioxide Level 18 L 20-31 mmol/L Anion Gap 11 5-15 Blood Urea Nitrogen 19 9-23 mg/dL Creatinine 0.92 0.550-1.02 mg/dL Glomerular Filtration Rate Calc 63 >90 mL/min BUN/Creatinine Ratio 20.7 H 10.0-20.0 Serum Glucose 171 H 74-106 mg/dL Calcium Level 10.1 8.7-10.4 mg/dL Assessment/Plan Assessment/Plan Assessment Generalized weakness Lower back pain Leukocytosis Plan Admit the patient to [facility] to the hospitalist Pain management Rocephin Blood cultures pending Resume home medications Continue treatment per orders. Plan discussed with: Patient My Orders Orders - ELÍAS FRAGOSO Procedure Category Date Status Time Metoprolol Xl PHA 10/08/24 In Process Succinate (Toprol Xl) 10:00 Blood Culture BERNARDINO 10/07/24 In Process 18:54 Admit ADMIT 10/07/24 Transmitted 18:54 Hydrocodone-Acet PHA 10/07/24 In Process 5/325mg Tab ([place] 19:00 Ondansetron Hcl PHA 10/07/24 In Process (Zofran) 19:00 Enoxaparin Sodium PHA 10/08/24 In Process (Lovenox) 10:00 Complete Blood Count LAB 10/08/24 Verified 04:00 Comprehensive LAB 10/08/24 Verified Metabolic Panel 04:00 Cardiac DIET 10/08/24 Transmitted Diet-2gna,Lofat,Lochol Breakfast Condition: Stable DANIELITO 10/07/24 In Process 18:54 Acetaminophen Tablet PHA 10/07/24 In Process (Tylenol Tablet) 19:00 Bedrest With Bathroom DANIELITO 10/07/24 In Process Privileg 18:54 Ceftriaxone 1gm/50ml PHA 10/08/24 In Process D5w (Rocephin) 09:00 Date of Service: Oct 07, 2024 Billing Provider: ELÍAS FRAGOSO Common Visit Codes: [id number] INP/OBS CARE (MOD) ELÍAS FRAGOSO Oct 07, 2024 21:13
[2024-10-08] MEDS ORDERED: HYDR-4491 PO (00:03)
[2024-10-08] MEDS ORDERED: METO25TA93 PO (00:03)
[2024-10-08] MEDS ORDERED: POTA-36 PO (00:03)
[2024-10-08] MEDS ORDERED: IBU600T PO (00:03)
[2024-10-08] MEDS ORDERED: METH2.5T PO (00:03)
[2024-10-08] MEDS ORDERED: FOLITAB22 PO (00:04)
[2024-10-08] MEDS ORDERED: MAGNTAB16 OR (00:05)
[2024-10-08] MEDS ORDERED: [UNRECOGNIZED DRUG - CODE] PO (00:05)
[2024-10-08] MEDS ORDERED: CHOL20007 PO (00:05)
[2024-10-08] MEDS: ACETAMINOPHEN 325 MG TAB PO PRN (01:08)
[2024-10-08 05:00] VITALS: BP 148/71; PULSE 77; RESP 19; TEMP 98.3; O2SAT 97
[2024-10-08 08:00] VITALS: PULSE 69; RESP 17; O2SAT 96
[2024-10-08 09:00] VITALS: BP 162/82; PULSE 69; RESP 16; TEMP 97.3; O2SAT 96
[2024-10-08] MEDS: cefTRIAXone 1GM/50ML D5W 50 ML IV SCH (09:14)
[2024-10-08] MEDS: ENOXAPARIN SOD 40 MG/0.4 ML SYRINGE SC SCH (09:14)
[2024-10-08] MEDS: METOPROLOL SUCCINATE XL 50 MG TAB PO SCH (09:15)
[2024-10-08 09:37] LABS: Basophils # (auto) 0 10 ^3/uL (0-0.2); Basophils % (auto) 0.3 % (0.0-2.0); Eosinophils # (auto) 0.1 10 ^3/uL (0-0.8); Eosinophils % (auto) 0.6 % (0.0-7.0); Hematocrit 31.4 % (36.0-46.0); Hemoglobin 10.4 g/dL (12.2-16.2); Lymphocytes # (auto) 1.2 10 ^3/uL (0.4-5.4); Lymphocytes % (auto) 8.4 % (10.0-50.0); Mean Corpuscular Hemoglobin 32.9 pg (28.0-32.0); Mean Corpuscular Volume 99.6 fL (80.0-100.0); Monocytes # (auto) 0.9 10 ^3/uL (0-1.3); Monocytes % (auto) 6.1 % (0.0-12.0); Neutrophils # (auto) 11.8 10 ^3/uL (1.6-8.6); Neutrophils % (auto) 84.6 % (37.0-80.0); Nucleated Red Blood Cells % 0.1 %; Platelet Count (auto) 179 10^3/uL (140-450); Red Blood Cells 3.16 10^6/uL (4.0-5.20); Red Cell Distribution Width 14.7 % (11.8-14.3)
[2024-10-08 09:55] LABS: Albumin 3.2 g/dL (3.2-4.8); Anion Gap 8 (5-15); BUN/Creatinine Ratio 28.3 (10.0-20.0); Blood Urea Nitrogen 17 mg/dL (9-23); Calcium 9.8 mg/dL (8.7-10.4); Potassium 3.9 mmol/L (3.5-5.1); Sodium 137 mmol/L (136-145)
[2024-10-08 09:56] LABS: Total Protein 5.9 g/dL (5.7-8.2)
[2024-10-08 10:04] LABS: Bilirubin, Total 0.6 mg/dL (0.2-1.0)
--- NOTE | 2024-10-08 10:33 | DVHPN2 ---
Progress Note Date Seen: Oct 08, 2024 Medical Necessity Reason Pt with a Central, PICC or Fol: No Subjective Patient reports: No new complaints Review of Systems: HEENT:Normal, CVS:Normal, RESPIRATORY:Normal, GI:Normal, :Normal, MSK:Normal, NEURO:Normal Objective vital signs Vital Sign Date Time Temp Pulse Resp B/P (MAP) Pulse Ox O2 Delivery O2 Flow Rate FiO2 10/08/24 09:15 69 162/82 10/08/24 09:00 97.3 16 96 97.3 10/07/24 23:56 Room Air* 0 21 Total Intake and Output 10/07/24 10/07/24 10/08/24 15:00 23:00 07:00 Intake Total 500 ml 600 ml Balance 500 ml 600 ml medications Current Medications Medications Dose Ordered Sig/Keven Route Start Time Stop Time Status Last Admin Dose Admin Metoprolol Succinate 50 mg DAILY PO 10/08/24 10:00 10/08/24 09:15 50 MG Acetaminophen/ Hydrocodone Bitart 1 tab Q4HP PRN PO 10/07/24 19:00 Ondansetron HCl 4 mg Q4HP PRN IV 10/07/24 19:00 Enoxaparin Sodium 40 mg DAILY SC 10/08/24 10:00 Acetaminophen 650 mg Q6HP PRN PO 10/07/24 19:00 10/08/24 01:08 650 MG Ceftriaxone Sodium 50 ml @ 100 mls/hr DAILY@09 IV 10/08/24 09:00 10/08/24 09:14 100 MLS/HR Examination: GENERAL:Normal, HEENT:Normal, NECK:Normal, LUNGS:Normal, CVS:Normal, ABDOMEN:Normal, MSK:Normal, SKIN:Normal, NEURO:Normal, :Normal laboratory and microbiology Laboratory Tests 10/08/24 05:28 Test 10/08/24 05:28 Range/Units Serum Glucose Pending Problem List/Assessment/Plan Problem List/Assessment/Plan #1 s/p fall #2 sepsis with ?uti: culture, iv rocephin #3 RA: hold mtx, plaquenil #4 htn #5 cad s/p stent #6 anemia advance care planning- full code- time spent 19 mins Plan discussed with: Patient, Spouse Date of Service: Oct 08, 2024 Billing Provider: ELÍAS CYR MD Common Visit Codes: [id number] INP/OBS CARE(HIGH) Secondary Visit Codes: [id number] CARE PLAN 30 MINUTES ELÍAS CYR MD Oct 08, 2024 10:33
[2024-10-08 10:38] LABS: Alanine Aminotransferase 99 U/L (7-40); Alkaline Phosphatase 588 U/L (46-116); Aspartate Aminotransferase 48 U/L (13-40); Carbon Dioxide 19 mmol/L (20-31); Chloride 110 mmol/L (98-107); Glucose 110 mg/dL (74-106)
[2024-10-08 12:37] VITALS: BP 137/74; PULSE 69; RESP 16; TEMP 97.6; O2SAT 97
[2024-10-08] MEDS: FOLIC ACID 1 MG TAB PO ONE (13:56)
[2024-10-08] MEDS: hydrOXYchloroQUINE SULFATE 200 MG TAB PO ONE (13:56)
[2024-10-08 17:06] VITALS: BP 143/65; PULSE 70; RESP 15; TEMP 98.6; O2SAT 97
[2024-10-09] VITALS (7 sets, daily range): BP systolic 130–190; BP diastolic 66–97; PULSE 62–95; RESP 14–18; TEMP 97.5–98; O2SAT 95–99
[2024-10-09] MEDS: hydrALAZINE HCL 20 MG/ML VL IV ONE (05:28)
--- NOTE | 2024-10-09 05:30 | DVH ---
CHEST RADIOGRAPH Indication: CAD Technique: Frontal and lateral view of the chest was obtained Comparison: XY CHEST TWO VIEWS ROUTINE on DOS: 09/25/24 FINDINGS: Lines and Tubes: None Lungs: No focal consolidation. Pleura: No effusion. No pneumothorax. Cardiomediastinal contours: Unremarkable Bones: No acute osseous abnormality. IMPRESSION: No acute cardiopulmonary disease.
[2024-10-09 06:56] LABS: Basophils # (auto) 0 10 ^3/uL (0-0.2); Basophils % (auto) 0.2 % (0.0-2.0); Eosinophils # (auto) 0.2 10 ^3/uL (0-0.8); Eosinophils % (auto) 1.3 % (0.0-7.0); Hematocrit 36.2 % (36.0-46.0); Lymphocytes # (auto) 1.3 10 ^3/uL (0.4-5.4); Lymphocytes % (auto) 9.3 % (10.0-50.0); Mean Corpuscular Hemoglobin 32.5 pg (28.0-32.0); Mean Corpuscular Hgb Conc. 33.2 g/dL (32.0-36.0); Mean Corpuscular Volume 97.9 fL (80.0-100.0); Monocytes # (auto) 1.3 10 ^3/uL (0-1.3); Monocytes % (auto) 9.3 % (0.0-12.0); Neutrophils # (auto) 11.3 10 ^3/uL (1.6-8.6); Neutrophils % (auto) 79.9 % (37.0-80.0); Platelet Count (auto) 240 10^3/uL (140-450); Red Cell Distribution Width 15.1 % (11.8-14.3); White Blood Cell 14.1 10^3/uL (4.4-10.8)
[2024-10-09 07:00] LABS: Potassium 3.7 mmol/L (3.5-5.1); Sodium 137 mmol/L (136-145)
[2024-10-09 07:01] LABS: Anion Gap 11 (5-15); Calcium 10.2 mg/dL (8.7-10.4)
[2024-10-09 07:06] LABS: Blood Urea Nitrogen 17 mg/dL (9-23)
[2024-10-09 07:10] LABS: Carbon Dioxide 18 mmol/L (20-31); Chloride 108 mmol/L (98-107); Glucose 106 mg/dL (74-106)
[2024-10-09] MEDS: LOSARTAN POTASSIUM 25 MG TAB PO SCH (10:00)
[2024-10-09] MEDS: METOPROLOL SUCCINATE XL 50 MG TAB PO SCH (10:00)
[2024-10-09] MEDS: hydrOXYchloroQUINE SULFATE 200 MG TAB PO SCH (10:03)
[2024-10-09] MEDS: FOLIC ACID 1 MG TAB PO SCH (10:04)
[2024-10-09] MEDS: ONDANSETRON HCL 4 MG/2 ML VIAL IV PRN (10:04)
--- NOTE | 2024-10-09 11:54 | DVHPN2 ---
Subjective The patient is seen and examined at bedside. Remained weak and tired. The patient had worked with physical therapy today. Reviewed: Care Plan, H&P, Labs, Medications, Previous Orders, Radiology Changes from previous H/P or p: No Changes Objective Vitals Vital Signs Date Time Temp Pulse Resp B/P (MAP) Pulse Ox O2 Delivery O2 Flow Rate FiO2 10/09/24 09:00 97.9 70 15 133/66 (88) 97 97.9 10/09/24 08:00 Room Air* 0 21 Intake/Output Intake and Output 10/09/24 07:00 Intake Total 1376 ml Balance 1376 ml Intake Oral 1376 ml # Voids 4 # Bowel Movements 1 General Appearance: Alert, Cooperative, No acute distress HEENT: Atraumatic, PERRLA, EOMI, Mucous membr. moist/pink Neck: Supple Lungs: Clear to auscultation, Normal air movement Cardiovascular: Regular rate, Normal S1, Normal S2, No murmurs, Gallops Abdomen: Normal bowel sounds, Soft, No tenderness Neuro: Cranial nerves 3-12 NL Psych/Mental Status: Mental status NL Medications Current Medications Medications Dose Ordered Sig/Keven Route Start Time Stop Time Status Last Admin Dose Admin Acetaminophen/ Hydrocodone Bitart 1 tab Q4HP PRN PO 10/07/24 19:00 Ondansetron HCl 4 mg Q4HP PRN IV 10/07/24 19:00 10/09/24 10:04 4 MG Enoxaparin Sodium 40 mg DAILY SC 10/08/24 10:00 Acetaminophen 650 mg Q6HP PRN PO 10/07/24 19:00 10/08/24 18:06 650 MG Ceftriaxone Sodium 50 ml @ 100 mls/hr DAILY@09 IV 10/08/24 09:00 10/09/24 10:05 100 MLS/HR Metoprolol Succinate 25 mg DAILY PO 10/09/24 10:00 Folic Acid 1 mg DAILY PO 10/09/24 10:00 10/09/24 10:04 1 MG Hydroxychloroquine Sulfate 200 mg DAILY PO 10/09/24 10:00 10/09/24 10:03 200 MG Losartan Potassium 25 mg DAILY PO 10/09/24 10:00 Hydralazine HCl 10 mg Q6HP PRN IV 10/09/24 03:45 Laboratory Results Laboratory Tests 12/25/24 05:46 Chemistry Test 10/09/24 05:46 Calcium Level 10.2 mg/dL (8.7-10.4) HgA1c, TSH Test 10/09/24 05:46 Thyroid Stimulating Hormone (TSH) 2.06 uIU/mL (0.55-4.78) Urinalysis Test 10/07/24 17:08 Urine Color Yellow (Yellow) Urine Clarity Turbid (Clear) H Urine pH 6.0 (5.0-9.0) Urine Specific [place] 1.014 (1.001-1.035) Urine Protein Trace (Negative) H Urine Ketones Negative (Negative) Urine Blood Negative /uL (Negative) Urine Nitrite Negative (Negative) Urine Bilirubin Negative (Negative) Urine Urobilinogen 2 mg/dL (Negative) H Urine Leukocyte Esterase Trace /uL (Negative) Urine RBC 9 /hpf (0 - 4) Urine WBC 13 /hpf (0 - 5) Urine Squamous Epithelial Cells Few /hpf (<5) Urine Bacteria Few /hpf (None Seen) H Urine Mucus Few (None Seen) Urine Glucose Normal mg/dL (Normal) Microbiology Microbiology Date/Time Source Procedure Growth Status 10/07/24 19:14 Blood Blood Culture - Preliminary NO GROWTH AFTER 24 HOURS OF INCUBATION. Resulted Labs and/or images reviewed: Labs reviewed by me Assessment/Plan Assessment/Plan #1 s/p fall #2 sepsis with ?uti #3 RA: hold mtx, plaquenil #4 htn #5 cad s/p stent #6 anemia Continuing current management. Continuing with physical therapy. Encouraged the patient to be out of bed and ambulate. Continuing with IV antibiotic Rocephin. We will follow up with urine culture. So far preliminary report of culture showed mixed anisha. Plan discussed with: Patient Date of Service: Oct 09, 2024 Billing Provider: LUIS ALBERTO SINGH MD Common Visit Codes: [id number] INP/OBS CARE(HIGH) LUIS ALBETRO SINGH MD Oct 09, 2024 11:54
--- NOTE | 2024-10-09 13:23 | DVH ---
EXAM: CT HEAD WITHOUT CONTRAST HISTORY: had fall c/o headache COMPARISON: CT PELVIS WO CONTRAST on DOS: 10/07/24, CT LS SPINE WO CONTRAST on DOS: 09/18/24, CT CT R HIP WITH OUT CONTRAST on DOS: 05/17/23 TECHNIQUE: Axial images were obtained and reformatted in coronal and sagittal planes. All CT scans at this medical facility are performed using dose modulation techniques as appropriate t o a performed exam including the following: Automated exposure control was utilized; adjustment of th e MA and/or KV according to patient size; and use of iterative reconstruction technique. CT Dose: CTDI volume is 47.65 mGy. Dose-length product is 826.45 mGy*cm FINDINGS: Supratentorial Region: No intracranial hemorrhage is noted. A 3 cm area of abnormal attenuation with loss of hcicas -white matter noted in the upper right parietal lobe. Confluent white matter hypoattenu ating foci are noted bilaterally, which typically reflect chronic microvascular ischemic changes. Posterior Fossa: No acute abnormality. Brainstem: Unremarkable. Sellar/Suprasellar Region: Unremarkable. Ventricles, Cisterns, Sulci: No hydrocephalus. Mild global cortical atrophy with prominence of sulci noted. Orbits: Unremarkable. Paranasal Sinuses: Unremarkable. Mastoid Air Cells: Unremarkable. Vasculature: Intracranial arterial calcified plaque formation noted. Bones/Soft Tissues: No acute abnormality. Other: None. IMPRESSION: 1. No evidence of acute traumatic injury of the head. 2. Moderate-sized, globular area of abnormal attenuation in the right upper parietal lobe likely refl ect subacute ischemia. Differential diagnosis includes vasogenic edema from an underlying mass. Fur ther evaluation with MRI without and with IV contrast is recommended. 3. Moderate global cortical atrophy and chronic microvascular ischemic changes. We are trying to reach out the clinical team to convey the critical findings.
[2024-10-09] MEDS: ASPirin 81 mg TAB PO SCH (17:34)
[2024-10-09] MEDS: hydrALAZINE HCL 20 MG/ML VL IV PRN (18:58)
[2024-10-10] VITALS (7 sets, daily range): BP systolic 117–185; BP diastolic 61–86; PULSE 71–104; RESP 15–20; TEMP 97.5–98.2; O2SAT 94–98
[2024-10-10 07:18] LABS: Basophils # (auto) 0 10 ^3/uL (0-0.2); Basophils % (auto) 0.2 % (0.0-2.0); Eosinophils # (auto) 0 10 ^3/uL (0-0.8); Eosinophils % (auto) 0.3 % (0.0-7.0); Hematocrit 38.2 % (36.0-46.0); Hemoglobin 13.1 g/dL (12.2-16.2); Lymphocytes # (auto) 0.9 10 ^3/uL (0.4-5.4); Lymphocytes % (auto) 7.4 % (10.0-50.0); Mean Corpuscular Hemoglobin 33.3 pg (28.0-32.0); Mean Corpuscular Hgb Conc. 34.3 g/dL (32.0-36.0); Monocytes # (auto) 0.9 10 ^3/uL (0-1.3); Monocytes % (auto) 7.2 % (0.0-12.0); Neutrophils # (auto) 10.7 10 ^3/uL (1.6-8.6); Neutrophils % (auto) 84.9 % (37.0-80.0); Platelet Count (auto) 265 10^3/uL (140-450); Red Blood Cells 3.94 10^6/uL (4.0-5.20); Red Cell Distribution Width 15.1 % (11.8-14.3); White Blood Cell 12.7 10^3/uL (4.4-10.8)
[2024-10-10 07:39] LABS: Chloride 105 mmol/L (98-107); Potassium 3.7 mmol/L (3.5-5.1); Sodium 138 mmol/L (136-145)
[2024-10-10 07:40] LABS: Anion Gap 13 (5-15)
[2024-10-10 07:44] LABS: Calcium 10.5 mg/dL (8.7-10.4); Carbon Dioxide 20 mmol/L (20-31)
[2024-10-10 07:46] LABS: BUN/Creatinine Ratio 26.3 (10.0-20.0); Blood Urea Nitrogen 20 mg/dL (9-23); Glucose 148 mg/dL (74-106)
--- NOTE | 2024-10-10 07:54 | BSKYNEURO ---
[facility] # Demographics Consult Type: General Neurology Patient Location: Inpatient First Name: JEFERSON Last Name: HALEIGH Date of : 1945 Age: 78 Gender: Female Facility: [facility] Time of Initial Page ( Time): 10/10/2024, 06:39 Time of Return Call ( Time): 10/10/2024, 06:40 # HPI History: 78 y/o F with Hx of HTN admitted 10/07 with generalized weakness and a fall hitting her head. Noted to have a leukocytosis and started on Rocephin. She has had a headache for 1 month prior to fall. CT head shows area of vasogenic edema Rt parietal lobe. # Exam Time of Exam (): 10/10/2024, 07:52 Mental Status: - awake - alert and oriented x 3 - follows commands Language: - normal speech Cranial Nerves: - extra ocular movements intact - no facial droop Motor: - no drift Sensory: - normal sensation Cerebellar: - normal finger nose - normal heel espinoza # Assessment Impression: - Headache Rt parietal vasogenic edema suggestive of mass vs encephalitis # Plan Imaging: (urgency: routine): - MRI Brain with AND without contrast Other: - If patient has any neurological deterioration please call me back immediately # Logistics Attestation of consult completion: The patient is located at: [facility]. Facility staff participated in the visit. I performed this telemedicine visit from my offsite office utilizing interactive 2 way audio and visual telecommunication technology. Total time spent in telemedicine encounter: I spent 30 minutes reviewing clinical data and/or imaging, obtaining history, examining the patient, communicating with the onsite care team, and in preparation of this report. # Demographics First Name: JEFERSON Last Name: HALEIGH Facility: [facility] Electronically signed at 10/10/2024 07:53 ( Time) by Sujata Mirza, TANJA Landis DO Oct 10, 2024 07:54
[2024-10-10] MEDS: GADOTERATE MEG 10 MMOL/20ml INJ (0.5MMOL/ml) IV ONE (08:16)
[2024-10-10] MEDS ORDERED: ASPirin 81 mg TAB PO SCH (10:00)
--- NOTE | 2024-10-10 10:29 | DVHPN2 ---
Progress Note Date Seen: Oct 10, 2024 Medical Necessity Reason Pt with a Central, PICC or Fol: No Subjective Patient reports: No new complaints, Other (vomiting) Review of Systems: HEENT:Normal, CVS:Normal, RESPIRATORY:Normal, GI:Normal, :Normal, MSK:Normal, NEURO:Normal Objective vital signs Vital Sign Date Time Temp Pulse Resp B/P (MAP) Pulse Ox O2 Delivery O2 Flow Rate FiO2 10/10/24 09:48 117/78 10/10/24 09:48 104 10/10/24 09:00 97.6 18 96 97.6 10/09/24 20:00 Room Air* 0 21 Total Intake and Output 10/09/24 10/09/24 10/10/24 15:00 23:00 07:00 Intake Total 220 ml 220 ml 300 ml Balance 220 ml 220 ml 300 ml medications Current Medications Medications Dose Ordered Sig/Keven Route Start Time Stop Time Status Last Admin Dose Admin Acetaminophen/ Hydrocodone Bitart 1 tab Q4HP PRN PO 10/07/24 19:00 Ondansetron HCl 4 mg Q4HP PRN IV 10/07/24 19:00 10/09/24 20:02 4 MG Enoxaparin Sodium 40 mg DAILY SC 10/08/24 10:00 Acetaminophen 650 mg Q6HP PRN PO 10/07/24 19:00 10/10/24 08:26 650 MG Ceftriaxone Sodium 50 ml @ 100 mls/hr DAILY@09 IV 10/08/24 09:00 10/10/24 09:47 100 MLS/HR Metoprolol Succinate 25 mg DAILY PO 10/09/24 10:00 10/10/24 09:48 25 MG Folic Acid 1 mg DAILY PO 10/09/24 10:00 10/10/24 09:49 1 MG Hydroxychloroquine Sulfate 200 mg DAILY PO 10/09/24 10:00 10/10/24 09:47 200 MG Losartan Potassium 25 mg DAILY PO 10/09/24 10:00 10/10/24 09:48 25 MG Hydralazine HCl 10 mg Q6HP PRN IV 10/09/24 03:45 10/10/24 06:03 10 MG Aspirin 81 mg DAILY PO 10/09/24 15:45 10/10/24 09:49 81 MG Examination: GENERAL:Normal, HEENT:Normal, NECK:Normal, LUNGS:Normal, CVS:Normal, ABDOMEN:Normal, MSK:Normal, SKIN:Normal, NEURO:Normal, :Normal laboratory and microbiology Laboratory Tests 10/10/24 06:50 Test 10/10/24 06:50 Range/Units Serum Glucose 148 H 74-106 mg/dL Microbiology Date/Time Source Procedure Growth Status 10/07/24 19:14 Blood Blood Culture - Preliminary NO GROWTH AFTER 48 HOURS OF INCUBATION. Resulted 10/07/24 10:51 Voided Urine Urine Culture - Preliminary Resulted Problem List/Assessment/Plan Problem List/Assessment/Plan #1 s/p fall #2 sepsis with ?uti: culture, iv rocephin #3 RA: hold mtx, plaquenil #4 htn #5 cad s/p stent #6 anemia #7 headache/vomiting: mri brain, ivf, #8 elevated lft: usg liver advance care planning- full code- time spent 19 mins Plan discussed with: Patient, Spouse Dietary Evaluation Review Comments: Monitor PO intake to meet 75% of her needs Expected Outcomes/Goals: maintain weight Date of Service: Oct 10, 2024 Billing Provider: ELÍAS CYR MD Common Visit Codes: [id number] INP/OBS CARE(HIGH) ELÍAS CYR MD Oct 10, 2024 10:29
[2024-10-10] MEDS: PANTOPRAZOLE 40 MG/10 ML VIAL INJ IV ONE (10:30)
--- NOTE | 2024-10-10 11:05 | DVHPN2 ---
Progress Note - Dictate Date Seen: Oct 08, 2024 Medical Necessity Reason Pt with a Central, PICC or Fol: No Subjective PT WITH LETHARGY WEAKNESS HAD A FALL BECAUSE OF WEAKNESS SEEN IN CLINIC ABOUT 5 DAYS AGO FOR SAME IV FLUID WITH MVI WAS GIVEN WITH ABX AND STEROIDS NOW WITH LEUKOCYTOSIS CT OF HEAD WITH POSSIBLE MASS PMH HTN LABILE vital signs Vital Sign Date Time Temp Pulse Resp B/P (MAP) Pulse Ox O2 Delivery O2 Flow Rate FiO2 10/10/24 09:48 117/78 10/10/24 09:48 104 10/10/24 09:00 97.6 18 96 97.6 10/09/24 20:00 Room Air* 0 21 Total Intake and Output 10/09/24 10/09/24 10/10/24 15:00 23:00 07:00 Intake Total 220 ml 220 ml 300 ml Balance 220 ml 220 ml 300 ml medications Current Medications Medications Dose Ordered Sig/Keven Route Start Time Stop Time Status Last Admin Dose Admin Acetaminophen/ Hydrocodone Bitart 1 tab Q4HP PRN PO 10/07/24 19:00 Ondansetron HCl 4 mg Q4HP PRN IV 10/07/24 19:00 10/09/24 20:02 4 MG Acetaminophen 650 mg Q6HP PRN PO 10/07/24 19:00 10/10/24 08:26 650 MG Ceftriaxone Sodium 50 ml @ 100 mls/hr DAILY@09 IV 10/08/24 09:00 10/10/24 09:47 100 MLS/HR Metoprolol Succinate 25 mg DAILY PO 10/09/24 10:00 10/10/24 09:48 25 MG Folic Acid 1 mg DAILY PO 10/09/24 10:00 10/10/24 09:49 1 MG Hydroxychloroquine Sulfate 200 mg DAILY PO 10/09/24 10:00 10/10/24 09:47 200 MG Losartan Potassium 25 mg DAILY PO 10/09/24 10:00 10/10/24 09:48 25 MG Hydralazine HCl 10 mg Q6HP PRN IV 10/09/24 03:45 10/10/24 06:03 10 MG Pantoprazole Sodium 40 mg DAILY@0630 IV 10/11/24 06:30 Potassium Chloride/Dextrose/ Sod Cl 1,000 ml @ 75 mls/hr [id number] IV 10/10/24 10:30 laboratory and microbiology Laboratory Tests 10/10/24 06:50 Test 10/10/24 06:50 Range/Units Serum Glucose 148 H 74-106 mg/dL Problem List LETHARGY WEAKNESS HAD A FALL BECAUSE OF WEAKNESS SEEN IN CLINIC ABOUT 5 DAYS AGO FOR SAME IV FLUID WITH MVI WAS GIVEN WITH ABX AND STEROIDS NOW WITH LEUKOCYTOSIS CT OF HEAD WITH POSSIBLE MASS PMH HTN LABILE Assessment/Plan MRI/MRA OF BRAIN ABX STEROIDS IV FLUID Dietary Evaluation Review Comments: Monitor PO intake to meet 75% of her needs Expected Outcomes/Goals: maintain weight Plan discussed with: Patient Critical Care Time(min): 35 JOSE ANGEL HALE MD Oct 10, 2024 11:05
--- NOTE | 2024-10-10 11:07 | DVHPN2 ---
Progress Note - Dictate Date Seen: Oct 10, 2024 Medical Necessity Reason Pt with a Central, PICC or Fol: No Subjective PT WITH LETHARGY WEAKNESS HAD A FALL BECAUSE OF WEAKNESS SEEN IN CLINIC ABOUT 5 DAYS AGO FOR SAME IV FLUID WITH MVI WAS GIVEN WITH ABX AND STEROIDS NOW WITH LEUKOCYTOSIS CT OF HEAD WITH POSSIBLE MASS PMH HTN LABILE vital signs Vital Sign Date Time Temp Pulse Resp B/P (MAP) Pulse Ox O2 Delivery O2 Flow Rate FiO2 10/10/24 09:48 117/78 10/10/24 09:48 104 10/10/24 09:00 97.6 18 96 97.6 10/09/24 20:00 Room Air* 0 21 Total Intake and Output 10/09/24 10/09/24 10/10/24 15:00 23:00 07:00 Intake Total 220 ml 220 ml 300 ml Balance 220 ml 220 ml 300 ml medications Current Medications Medications Dose Ordered Sig/Keven Route Start Time Stop Time Status Last Admin Dose Admin Acetaminophen/ Hydrocodone Bitart 1 tab Q4HP PRN PO 10/07/24 19:00 Ondansetron HCl 4 mg Q4HP PRN IV 10/07/24 19:00 10/09/24 20:02 4 MG Acetaminophen 650 mg Q6HP PRN PO 10/07/24 19:00 10/10/24 08:26 650 MG Ceftriaxone Sodium 50 ml @ 100 mls/hr DAILY@09 IV 10/08/24 09:00 10/10/24 09:47 100 MLS/HR Metoprolol Succinate 25 mg DAILY PO 10/09/24 10:00 10/10/24 09:48 25 MG Folic Acid 1 mg DAILY PO 10/09/24 10:00 10/10/24 09:49 1 MG Hydroxychloroquine Sulfate 200 mg DAILY PO 10/09/24 10:00 10/10/24 09:47 200 MG Losartan Potassium 25 mg DAILY PO 10/09/24 10:00 10/10/24 09:48 25 MG Hydralazine HCl 10 mg Q6HP PRN IV 10/09/24 03:45 10/10/24 06:03 10 MG Pantoprazole Sodium 40 mg DAILY@0630 IV 10/11/24 06:30 Potassium Chloride/Dextrose/ Sod Cl 1,000 ml @ 75 mls/hr [id number] IV 10/10/24 10:30 laboratory and microbiology Laboratory Tests 10/10/24 06:50 Test 10/10/24 06:50 Range/Units Serum Glucose 148 H 74-106 mg/dL Problem List LETHARGY WEAKNESS HAD A FALL BECAUSE OF WEAKNESS SEEN IN CLINIC ABOUT 5 DAYS AGO FOR SAME IV FLUID WITH MVI WAS GIVEN WITH ABX AND STEROIDS NOW WITH LEUKOCYTOSIS CT OF HEAD WITH POSSIBLE MASS PMH HTN LABILE Assessment/Plan MRI/MRA OF BRAIN ABX STEROIDS IV FLUID TACHYCARDIA Dietary Evaluation Review Comments: Monitor PO intake to meet 75% of her needs Expected Outcomes/Goals: maintain weight Plan discussed with: Patient, Spouse Critical Care Time(min): 35 JOSE ANGEL HALE MD Oct 10, 2024 11:07
[2024-10-10] MEDS: D5W/SOD CHL 0.45%/KCL 20MEQ 1,000 ML IV SCH (11:57)
--- NOTE | 2024-10-10 12:23 | DVH ---
Procedure: US LIVER 10/10/2024 11:05 AM Indication: elevated lft Comparison: None Technique: Grayscale and color images of the right upper quadrant were obtained. FINDINGS: ASCITES: None. LIVER: Liver measures 15 cm in craniocaudal. Liver parenchyma is diffusely coarse in echotexture. No focal lesion is identified. No intrahepatic ductal dilatation. Normal directional flow is seen in t he portal vein. GALLBLADDER: Gallbladder sludge and tiny calculi are noted in gallbladder lumen. A 1.3 cm stone in ga llbladder neck which appears immobile. No gallbladder wall edema or pericholecystic fluid. Sonograp hic Betancourt's sign is negative. COMMON BILE DUCT: 1.7 cm in caliber. PANCREAS: Visualized portions are unremarkable. RIGHT KIDNEY: Normal in size without hydronephrosis. A 1.5 cm cyst seen arising from midpole. AORTA, IVC: Visualized portions are unremarkable. OTHER: None. IMPRESSION: 1. Cholelithiasis, and gallbladder sludge without evidence of acute cholecystitis. 2. Dilated CBD suggestive of a distal obstructing process such as choledocholithiasis. Recommend jose luis elation with bilirubin if indicated further evaluation with MRCP or ERCP. 3. Hepatic steatosis. 4. A 1.5 cm simple appearing right renal cyst.
--- NOTE | 2024-10-10 13:41 | DVH ---
MRI BRAIN WITH CONTRAST CLINICAL HISTORY: MASS TECHNIQUE: Multiplanar multisequence images of the brain were obtained prior to and following intravenous admini stration of contrast. 10/10 cc of gadavist contrast from a prefilled syringe was administered intravenously. Comparison: CT head 10/09/2024 FINDINGS: There is an approximately 3 cm moderate size area of restricted diffusion in the right parietal lobe . There is also a small area of restricted diffusion in the posterior right occipital lobe. There is also a punctate focus of restricted diffusion in the midline cerebellum, just posterior to the 4th ve ntricle. These are compatible with acute to subacute infarcts. There is no evidence of acute hemorrha ge. There is no significant surrounding edema. There is no mass effect. There is no pathologic enhancement. There is no hydrocephalus or extra-axial fluid collection. The v isualized intracranial vasculature demonstrates appropriate flow-voids. The midline structures appear unremarkable. The craniocervical junction is within normal limits. The calvarium demonstrates normal marrow signal. There are retention cysts in the left maxillary sinus. The mastoid air cells are jessie ar. IMPRESSION: 1. Moderate size area of acute to subacute infarct in the right parietal lobe. There is no evidence o f acute hemorrhage, surrounding edema or associated mass effect. 2. Additional small area of acute to subacute infarct in the posterior right occipital lobe and in th e midline cerebellum posterior to the 4th ventricle. HS:Y
--- NOTE | 2024-10-10 18:30 | DVH ---
Carotid Duplex Date: 10/10/2024 05:11 PM Clinical History: r/o stenosis Comparison: None Technique: Duplex Doppler evaluation of the extracranial carotid and vertebral arteries including color Doppler and spectral/pulsed waveform analysis was performed. Findings: RIGHT SIDE: The peak systolic velocities are 77.6 cm/s in the distal CCA and 153 cm/s in the proximal ICA.The ICA /CCA ratio is less than 2. The external carotid artery is patent with peak systolic velocity of 88 cm/s proximally. There is appropriate antegrade flow in the right vertebral artery, 75.6 cm/s LEFT SIDE: The peak systolic velocities are 56.8 cm/s in the distal CCA and 118 cm/s in the proximal ICA.. The ICA/CCA ratio is 2.1. The external carotid artery is patent with peak systolic velocity of 105.7 cm/s proximally. There is appropriate antegrade flow in the left vertebral artery. IMPRESSION: 1. stenosis noted in the right carotid system.50-69% stenosis in the right internal carotid. 2. 50-69% stenosis of the left 3. internal carotid. 4. Echogenic plaque noted 5. at 6. carotid 7. bifurcation on the left.
[2024-10-10] MEDS: ATORVASTATIN 20 MG TAB PO SCH (21:36)
[2024-10-11] VITALS (9 sets, daily range): BP systolic 112–182; BP diastolic 57–93; PULSE 73–93; RESP 14–22; TEMP 97.2–98.1; O2SAT 94–97
[2024-10-11] MEDS: PANTOPRAZOLE 40 MG/10 ML VIAL INJ IV SCH (05:38)
[2024-10-11] MEDS ORDERED: cloNIDine HCL 0.1 MG TAB PO PRN (06:00)
[2024-10-11 09:09] LABS: Alanine Aminotransferase 234 U/L (7-40); Albumin 3.5 g/dL (3.2-4.8); Alkaline Phosphatase 821 U/L (46-116); Anion Gap 12 (5-15); Aspartate Aminotransferase 182 U/L (13-40); BUN/Creatinine Ratio 19.6 (10.0-20.0); Bilirubin, Total 3.1 mg/dL (0.2-1.0); Blood Urea Nitrogen 11 mg/dL (9-23); Calcium 9.8 mg/dL (8.7-10.4); Carbon Dioxide 17 mmol/L (20-31); Chloride 107 mmol/L (98-107); Glucose 171 mg/dL (74-106); Potassium 3.4 mmol/L (3.5-5.1); Sodium 136 mmol/L (136-145); Total Protein 6.5 g/dL (5.7-8.2)
--- NOTE | 2024-10-11 09:27 | DVHPN2 ---
Progress Note Date Seen: Oct 11, 2024 Medical Necessity Reason Pt with a Central, PICC or Fol: No Subjective Patient reports: No new complaints Review of Systems: HEENT:Normal, CVS:Normal, RESPIRATORY:Normal, GI:Normal, :Normal, MSK:Normal, NEURO:Normal Objective vital signs Vital Sign Date Time Temp Pulse Resp B/P (MAP) Pulse Ox O2 Delivery O2 Flow Rate FiO2 10/11/24 06:45 98.1 93 19 127/87 (100) 95 98.1 10/10/24 20:00 Room Air* 0 21 Total Intake and Output 10/10/24 10/10/24 10/11/24 15:00 23:00 07:00 Intake Total 50 ml 590 ml 400 ml Balance 50 ml 590 ml 400 ml medications Current Medications Medications Dose Ordered Sig/Keven Route Start Time Stop Time Status Last Admin Dose Admin Acetaminophen/ Hydrocodone Bitart 1 tab Q4HP PRN PO 10/07/24 19:00 Acetaminophen 650 mg Q6HP PRN PO 10/07/24 19:00 10/10/24 19:03 650 MG Ceftriaxone Sodium 50 ml @ 100 mls/hr DAILY@09 IV 10/08/24 09:00 10/10/24 09:47 100 MLS/HR Metoprolol Succinate 25 mg DAILY PO 10/09/24 10:00 10/10/24 09:48 25 MG Folic Acid 1 mg DAILY PO 10/09/24 10:00 10/10/24 09:49 1 MG Hydroxychloroquine Sulfate 200 mg DAILY PO 10/09/24 10:00 10/10/24 09:47 200 MG Losartan Potassium 25 mg DAILY PO 10/09/24 10:00 10/10/24 09:48 25 MG Pantoprazole Sodium 40 mg DAILY@0630 IV 10/11/24 06:30 10/11/24 05:38 40 MG Potassium Chloride/Dextrose/ Sod Cl 1,000 ml @ 75 mls/hr [id number] IV 10/10/24 10:30 10/11/24 03:48 75 MLS/HR Atorvastatin Calcium 40 mg HS PO 10/10/24 22:00 10/10/24 21:36 40 MG Clonidine HCl 0.1 mg Q6HP PRN PO 10/11/24 09:15 UNV Aspirin 81 mg DAILY PO 10/11/24 10:00 UNV Clopidogrel Bisulfate 75 mg DAILY PO 10/11/24 10:00 UNV Metoclopramide HCl 10 mg Q8HPRN PRN IV 10/11/24 09:15 UNV Enteral Nutritional Formula 240 ml BIDWM PO 10/11/24 18:00 UNV Examination: GENERAL:Normal, HEENT:Normal, NECK:Normal, LUNGS:Normal, CVS:Normal, ABDOMEN:Normal, MSK:Normal, SKIN:Normal, NEURO:Normal, :Normal laboratory and microbiology Laboratory Tests 10/11/24 08:13 Test 10/11/24 08:13 Range/Units Serum Glucose 171 H 74-106 mg/dL Microbiology Date/Time Source Procedure Growth Status 10/07/24 19:14 Blood Blood Culture - Preliminary NO GROWTH AFTER 72 HOURS OF INCUBATION. Resulted 10/07/24 10:51 Voided Urine Urine Culture - Final Complete Problem List/Assessment/Plan Problem List/Assessment/Plan #1 s/p fall #2 sepsis with uti: culture, iv rocephin #3 RA: hold mtx, plaquenil #4 htn #5 cad s/p stent #6 anemia #7 headache/vomiting: mri brain, ivf, #8 gallstones with ?cbd stones ? acute florence: iv antibiotics, mrcp #9 acute cva: asa, echo #10 carotid stenosis: dw dr Howard advance care planning- full code- time spent 19 mins Plan discussed with: Patient, Spouse My Orders My Orders Orders - ELÍAS CYR MD Procedure Category Date Status Time Pantoprazole PHA 10/11/24 In Process (Protonix) 06:30 D5w/Sod Chl 0.45%/Kcl PHA 10/10/24 In Process 20meq 10:30 LIVER US 10/10/24 Resulted 10:23 Complete Blood Count LAB 10/11/24 Logged 06:00 PTPTT LAB 10/11/24 Logged 04:00 Atorvastatin (Lipitor) PHA 10/10/24 In Process 22:00 Carotid Duplx W Color US 10/10/24 Resulted DOP 17:00 Clonidine Hcl Tablet PHA 10/11/24 Logged (Catapres Tablet) 09:15 Aspirin Tablet PHA 10/11/24 Logged 10:00 Clopidogrel Bisulfate PHA 10/11/24 Logged (Plavix) 10:00 Metoclopramide PHA 10/11/24 Logged Injection (Reglan 09:15 Echo 2d Mode Cardiac US 10/11/24 Logged DOP 09:09 Nutritional PHA 10/11/24 Logged Supplements (Ensure 18:00 Transfer Orders XFER 10/11/24 Transmitted 09:23 Dietary Evaluation Review Comments: Monitor PO intake to meet 75% of her needs Expected Outcomes/Goals: maintain weight Date of Service: Oct 11, 2024 Billing Provider: ELÍAS CYR MD Common Visit Codes: [id number] INP/OBS CARE(HIGH) ELÍAS CYR MD Oct 11, 2024 09:27
[2024-10-11] MEDS ORDERED: CLOPIDOGREL BISULFATE 75 MG TAB PO SCH (10:00)
[2024-10-11] MEDS: ASPirin 81 mg TAB PO SCH (10:31)
[2024-10-11] MEDS: METOCLOPRAMIDE HCL 5MG/ml INJ 2ml VIAL IV PRN (11:45)
[2024-10-11 11:55] LABS: Basophils # (auto) 0 10 ^3/uL (0-0.2); Basophils % (auto) 0.3 % (0.0-2.0); Eosinophils # (auto) 0 10 ^3/uL (0-0.8); Eosinophils % (auto) 0.4 % (0.0-7.0); Hematocrit 35.8 % (36.0-46.0); Hemoglobin 11.8 g/dL (12.2-16.2); Lymphocytes # (auto) 0.4 10 ^3/uL (0.4-5.4); Lymphocytes % (auto) 4.9 % (10.0-50.0); Mean Corpuscular Hemoglobin 32.3 pg (28.0-32.0); Mean Corpuscular Hgb Conc. 33.1 g/dL (32.0-36.0); Mean Corpuscular Volume 97.8 fL (80.0-100.0); Monocytes # (auto) 0.8 10 ^3/uL (0-1.3); Monocytes % (auto) 10.4 % (0.0-12.0); Neutrophils # (auto) 6.5 10 ^3/uL (1.6-8.6); Nucleated Red Blood Cells % 0.1 %; Platelet Count (auto) 218 10^3/uL (140-450); Red Blood Cells 3.66 10^6/uL (4.0-5.20); White Blood Cell 7.8 10^3/uL (4.4-10.8)
[2024-10-11 12:12] LABS: INR 1.08 (0.9-1.15); Partial Thromboplastin Time 24.8 SEC (24.5-34.5); Prothrombin Time 11.4 sec (9.3-11.8)
[2024-10-11] MEDS: cloNIDine HCL 0.1 MG TAB PO PRN (12:12)
[2024-10-11] MEDS: POTASSIUM CHLORIDE 20 MEQ, LIDOCAINE 1% (LOCAL ANESTH.) 2 ML in SODIUM CHL 0.9% 100 ML IV ONE (12:15)
--- NOTE | 2024-10-11 12:54 | DVHPN2 ---
Progress Note - Dictate Date Seen: Oct 09, 2024 Medical Necessity Reason Pt with a Central, PICC or Fol: No Subjective PT WITH LETHARGY WEAKNESS HAD A FALL BECAUSE OF WEAKNESS SEEN IN CLINIC ABOUT 5 DAYS AGO FOR SAME IV FLUID WITH MVI WAS GIVEN WITH ABX AND STEROIDS NOW WITH LEUKOCYTOSIS CT OF HEAD WITH POSSIBLE MASS PMH HTN LABILE vital signs Vital Sign Date Time Temp Pulse Resp B/P (MAP) Pulse Ox O2 Delivery O2 Flow Rate FiO2 10/11/24 12:12 179/90 10/11/24 10:31 88 10/11/24 09:00 97.7 20 97 97.7 10/11/24 08:00 Room Air* 0 21 Total Intake and Output 10/10/24 10/10/24 10/11/24 15:00 23:00 07:00 Intake Total 50 ml 590 ml 400 ml Balance 50 ml 590 ml 400 ml medications Current Medications Medications Dose Ordered Sig/Keven Route Start Time Stop Time Status Last Admin Dose Admin Acetaminophen/ Hydrocodone Bitart 1 tab Q4HP PRN PO 10/07/24 19:00 Acetaminophen 650 mg Q6HP PRN PO 10/07/24 19:00 10/10/24 19:03 650 MG Ceftriaxone Sodium 50 ml @ 100 mls/hr DAILY@09 IV 10/08/24 09:00 10/11/24 10:30 100 MLS/HR Metoprolol Succinate 25 mg DAILY PO 10/09/24 10:00 10/11/24 10:31 25 MG Folic Acid 1 mg DAILY PO 10/09/24 10:00 10/11/24 10:31 1 MG Hydroxychloroquine Sulfate 200 mg DAILY PO 10/09/24 10:00 10/11/24 10:30 200 MG Losartan Potassium 25 mg DAILY PO 10/09/24 10:00 10/11/24 10:31 25 MG Pantoprazole Sodium 40 mg DAILY@0630 IV 10/11/24 06:30 10/11/24 05:38 40 MG Potassium Chloride/Dextrose/ Sod Cl 1,000 ml @ 75 mls/hr [id number] IV 10/10/24 10:30 10/11/24 03:48 75 MLS/HR Atorvastatin Calcium 40 mg HS PO 10/10/24 22:00 10/10/24 21:36 40 MG Clonidine HCl 0.1 mg Q6HP PRN PO 10/11/24 09:15 10/11/24 12:12 0.1 MG Aspirin 81 mg DAILY PO 10/11/24 10:00 10/11/24 10:31 81 MG Metoclopramide HCl 10 mg Q8HPRN PRN IV 10/11/24 09:15 10/11/24 11:45 10 MG Enteral Nutritional Formula 240 ml BIDWM PO 10/11/24 18:00 Metronidazole 100 ml @ 100 mls/hr Q8HR IV 10/11/24 14:00 laboratory and microbiology Laboratory Tests 10/11/24 11:30 10/11/24 08:13 Test 10/11/24 08:13 Range/Units Serum Glucose 171 H 74-106 mg/dL Problem List LETHARGY WEAKNESS HAD A FALL BECAUSE OF WEAKNESS SEEN IN CLINIC ABOUT 5 DAYS AGO FOR SAME IV FLUID WITH MVI WAS GIVEN WITH ABX AND STEROIDS NOW WITH LEUKOCYTOSIS CT OF HEAD WITH POSSIBLE MASS PMH HTN LABILE Assessment/Plan MRI/MRA OF BRAIN ABX STEROIDS IV FLUID TACHYCARDIA MRI WITH AND WITHOUT CONTRAST CONSISTENT WITH SUBACUTE CVA PHYSICAL THERAPY STILL WITH HEADACHE Dietary Evaluation Review Comments: Monitor PO intake to meet 75% of her needs Expected Outcomes/Goals: maintain weight Plan discussed with: Patient JOSE ANGEL HALE MD Oct 11, 2024 12:54
--- NOTE | 2024-10-11 12:56 | DVHPN2 ---
Progress Note - Dictate Date Seen: Oct 11, 2024 Medical Necessity Reason Pt with a Central, PICC or Fol: No Subjective PT WITH LETHARGY WEAKNESS HAD A FALL BECAUSE OF WEAKNESS SEEN IN CLINIC ABOUT 5 DAYS AGO FOR SAME IV FLUID WITH MVI WAS GIVEN WITH ABX AND STEROIDS NOW WITH LEUKOCYTOSIS CT OF HEAD WITH POSSIBLE MASS PMH HTN LABILE vital signs Vital Sign Date Time Temp Pulse Resp B/P (MAP) Pulse Ox O2 Delivery O2 Flow Rate FiO2 10/11/24 12:12 179/90 10/11/24 10:31 88 10/11/24 09:00 97.7 20 97 97.7 10/11/24 08:00 Room Air* 0 21 Total Intake and Output 10/10/24 10/10/24 10/11/24 15:00 23:00 07:00 Intake Total 50 ml 590 ml 400 ml Balance 50 ml 590 ml 400 ml medications Current Medications Medications Dose Ordered Sig/Keven Route Start Time Stop Time Status Last Admin Dose Admin Acetaminophen/ Hydrocodone Bitart 1 tab Q4HP PRN PO 10/07/24 19:00 Acetaminophen 650 mg Q6HP PRN PO 10/07/24 19:00 10/10/24 19:03 650 MG Ceftriaxone Sodium 50 ml @ 100 mls/hr DAILY@09 IV 10/08/24 09:00 10/11/24 10:30 100 MLS/HR Metoprolol Succinate 25 mg DAILY PO 10/09/24 10:00 10/11/24 10:31 25 MG Folic Acid 1 mg DAILY PO 10/09/24 10:00 10/11/24 10:31 1 MG Hydroxychloroquine Sulfate 200 mg DAILY PO 10/09/24 10:00 10/11/24 10:30 200 MG Losartan Potassium 25 mg DAILY PO 10/09/24 10:00 10/11/24 10:31 25 MG Pantoprazole Sodium 40 mg DAILY@0630 IV 10/11/24 06:30 10/11/24 05:38 40 MG Potassium Chloride/Dextrose/ Sod Cl 1,000 ml @ 75 mls/hr [id number] IV 10/10/24 10:30 10/11/24 03:48 75 MLS/HR Atorvastatin Calcium 40 mg HS PO 10/10/24 22:00 10/10/24 21:36 40 MG Clonidine HCl 0.1 mg Q6HP PRN PO 10/11/24 09:15 10/11/24 12:12 0.1 MG Aspirin 81 mg DAILY PO 10/11/24 10:00 10/11/24 10:31 81 MG Metoclopramide HCl 10 mg Q8HPRN PRN IV 10/11/24 09:15 10/11/24 11:45 10 MG Enteral Nutritional Formula 240 ml BIDWM PO 10/11/24 18:00 Metronidazole 100 ml @ 100 mls/hr Q8HR IV 10/11/24 14:00 laboratory and microbiology Laboratory Tests 10/11/24 11:30 10/11/24 08:13 Test 10/11/24 08:13 Range/Units Serum Glucose 171 H 74-106 mg/dL Problem List LETHARGY WEAKNESS HAD A FALL BECAUSE OF WEAKNESS SEEN IN CLINIC ABOUT 5 DAYS AGO FOR SAME IV FLUID WITH MVI WAS GIVEN WITH ABX AND STEROIDS NOW WITH LEUKOCYTOSIS CT OF HEAD WITH POSSIBLE MASS PMH HTN LABILE Assessment/Plan MRI/MRA OF BRAIN ABX STEROIDS IV FLUID TACHYCARDIA MRI WITH AND WITHOUT CONTRAST CONSISTENT WITH SUBACUTE CVA PHYSICAL THERAPY STILL WITH HEADACHE CAROTID DOPPLER C/W BILATERAL 70% ICA STENOSIS CAROTID ANGIO OUTPATIENT DAPT MRCP 1. Focal severe narrowing of the common bile duct at the level of the pancreatic head. Findings are suspicious for pancreatic mass causing obstruction, with dilation of the common bile duct proximal to the level of the pancreatic head and dilated pancreatic duct also noted. Stricture would be less likely. Correlate with clinical findings. Pancreatic protocol MRI without and with contrast recommended. 2. Distended gallbladder. Gallstones visualized at the gallbladder neck and cystic duct. 3. Multiple small cysts are seen along the course of the dilated pancreatic duct. Dietary Evaluation Review Comments: Monitor PO intake to meet 75% of her needs Expected Outcomes/Goals: maintain weight Plan discussed with: Patient, Spouse, Daughter JOSE ANGEL HALE MD Oct 11, 2024 12:56
--- NOTE | 2024-10-11 13:27 | DVH ---
CLINICAL INFORMATION: Gallstones. TECHNIQUE: Multisequence multiplanar MRI images of the abdomen were obtained without IV contrast. Sabas sol T2-weighted MRCP images were obtained. 3D MRCP images were created. COMPARISON: Ultrasound dated 10/10/2024. FINDINGS: Gallbladder is distended, measuring up to 10.4 x 4.0 cm. There are gallstones at the gallbl adder neck and cystic duct. Dilated common bile duct measuring up to 1.7 cm near the level of the por ta hepatis. There is also intrahepatic biliary ductal dilatation. MRCP images demonstrate focal narro wing of the common bile duct at the level of the pancreatic head, obstruction due to mass at the panc reatic head not excluded. Dilated main pancreatic duct also noted measuring up to 0.8 cm at the level of the body of the pancreas. Multiple small cystic structures adjacent to the main pancreatic duct a re seen. Exophytic cyst in the midpole of the right kidney measures up to 1.6 cm. IMPRESSION: 1. Focal severe narrowing of the common bile duct at the level of the pancreatic head. Findings are s uspicious for pancreatic mass causing obstruction, with dilation of the common bile duct proximal to the level of the pancreatic head and dilated pancreatic duct also noted. Stricture would be less lik ulices. Correlate with clinical findings. Pancreatic protocol MRI without and with contrast recommended. 2. Distended gallbladder. Gallstones visualized at the gallbladder neck and cystic duct. 3. Multiple small cysts are seen along the course of the dilated pancreatic duct. 4. Additional findings as detailed above.
[2024-10-11] MEDS ORDERED: metroNIDAZOLE 500MG/100ML 100 ML IV SCH (14:00)
[2024-10-11] MEDS ORDERED: TPN PER PHARMACY 0 ML IV SCH (14:45)
[2024-10-11] MEDS: LIDOCAINE 1% (LOCAL ANESTH.) PF 5ml SDV ID ONE (18:01)
[2024-10-11] MEDS: metroNIDAZOLE 500MG/100ML 100 ML IV SCH (18:19)
[2024-10-11] MEDS: Ensure HIGH Protein Chocolate 8oz Bottle PO SCH (18:20)
[2024-10-11] MEDS ORDERED: AMINO ACID INFUSION IN D10W 1,000 ML IV SCH (22:00)
[2024-10-11] MEDS: SODIUM CHLOR 0.9% PF (SALINE LOCK) 10ML VIAL/SYR IV SCH (22:17)
[2024-10-11] MEDS: AMINO ACID INFUSION IN D5W 1,000 ML IV SCH (22:18)
[2024-10-12] VITALS (10 sets, daily range): BP systolic 108–146; BP diastolic 63–74; PULSE 68–88; RESP 15–19; TEMP 97.4–99.5; O2SAT 92–98
[2024-10-12] MEDS ORDERED: DEXTROSE (50%) 50ML SYRG IV SCH
[2024-10-12] MEDS: InsuLIN REG 1unit/0.01ml Soln (100units/ml) SC SCH
[2024-10-12] MEDS: ACCU-CHEK COMFORT CURVE STRIP VI SCH (00:43)
[2024-10-12 07:04] LABS: Basophils # (auto) 0 10 ^3/uL (0-0.2); Basophils % (auto) 0.6 % (0.0-2.0); Eosinophils # (auto) 0.1 10 ^3/uL (0-0.8); Eosinophils % (auto) 1.7 % (0.0-7.0); Hematocrit 32.6 % (36.0-46.0); Hemoglobin 10.7 g/dL (12.2-16.2); Lymphocytes # (auto) 0.7 10 ^3/uL (0.4-5.4); Lymphocytes % (auto) 10.7 % (10.0-50.0); Mean Corpuscular Hemoglobin 32.7 pg (28.0-32.0); Mean Corpuscular Volume 99.2 fL (80.0-100.0); Monocytes # (auto) 0.6 10 ^3/uL (0-1.3); Monocytes % (auto) 9.2 % (0.0-12.0); Neutrophils # (auto) 5.4 10 ^3/uL (1.6-8.6); Neutrophils % (auto) 77.8 % (37.0-80.0); Platelet Count (auto) 183 10^3/uL (140-450); Red Blood Cells 3.29 10^6/uL (4.0-5.20); Red Cell Distribution Width 15.2 % (11.8-14.3); White Blood Cell 6.9 10^3/uL (4.4-10.8)
[2024-10-12 07:21] LABS: Magnesium 1.7 mg/dL (1.6-2.6)
[2024-10-12 07:23] LABS: Anion Gap 7 (5-15); Blood Urea Nitrogen 13 mg/dL (9-23); Calcium 9.3 mg/dL (8.7-10.4); Carbon Dioxide 22 mmol/L (20-31); Chloride 107 mmol/L (98-107); Potassium 3.8 mmol/L (3.5-5.1); Total Protein 5.7 g/dL (5.7-8.2)
[2024-10-12 07:31] LABS: INR 1.07 (0.9-1.15); Partial Thromboplastin Time 24.8 SEC (24.5-34.5); Prothrombin Time 11.3 sec (9.3-11.8)
[2024-10-12 09:11] LABS: Phosphorus 1.9 mg/dL (2.4-5.1)
[2024-10-12 09:12] LABS: Alanine Aminotransferase 176 U/L (7-40); Albumin 3.1 g/dL (3.2-4.8); Alkaline Phosphatase 782 U/L (46-116); Aspartate Aminotransferase 135 U/L (13-40); Bilirubin, Total 1.5 mg/dL (0.2-1.0); Glucose 111 mg/dL (74-106); Sodium 136 mmol/L (136-145)
--- NOTE | 2024-10-12 11:04 | DVHPN2 ---
Subjective Patient continues to complain of headache. Reviewed: Care Plan, H&P, Labs, Medications, Previous Orders, Radiology Changes from previous H/P or p: No Changes Objective Vitals Vital Signs Date Time Temp Pulse Resp B/P (MAP) Pulse Ox O2 Delivery O2 Flow Rate FiO2 10/12/24 09:14 76 134/71 10/12/24 05:00 97.4 16 92 97.4 10/11/24 20:00 Room Air* 0 21 Intake/Output Intake and Output 10/12/24 07:00 Intake Total 600 ml Balance 600 ml Intake Oral 400 ml IV Total 200 ml # Voids 4 General Appearance: Alert, Oriented X3, Cooperative, No acute distress HEENT: Atraumatic, PERRLA, EOMI, Mucous membr. moist/pink Neck: Supple Lungs: Clear to auscultation, Normal air movement Cardiovascular: Regular rate, Normal S1, Normal S2, No murmurs, Gallops Abdomen: Normal bowel sounds, Soft, No tenderness Neuro: Cranial nerves 3-12 NL Psych/Mental Status: Mental status NL Medications Current Medications Medications Dose Ordered Sig/Keven Route Start Time Stop Time Status Last Admin Dose Admin Acetaminophen/ Hydrocodone Bitart 1 tab Q4HP PRN PO 10/07/24 19:00 Acetaminophen 650 mg Q6HP PRN PO 10/07/24 19:00 10/12/24 10:50 650 MG Ceftriaxone Sodium 50 ml @ 100 mls/hr DAILY@09 IV 10/08/24 09:00 10/12/24 09:15 100 MLS/HR Metoprolol Succinate 25 mg DAILY PO 10/09/24 10:00 10/12/24 09:14 25 MG Folic Acid 1 mg DAILY PO 10/09/24 10:00 10/12/24 09:13 1 MG Hydroxychloroquine Sulfate 200 mg DAILY PO 10/09/24 10:00 10/12/24 09:14 200 MG Losartan Potassium 25 mg DAILY PO 10/09/24 10:00 10/12/24 09:13 25 MG Pantoprazole Sodium 40 mg DAILY@0630 IV 10/11/24 06:30 10/12/24 05:37 40 MG Potassium Chloride/Dextrose/ Sod Cl 1,000 ml @ 75 mls/hr [id number] IV 10/10/24 10:30 10/12/24 05:58 75 MLS/HR Atorvastatin Calcium 40 mg HS PO 10/10/24 22:00 10/11/24 22:14 40 MG Clonidine HCl 0.1 mg Q6HP PRN PO 10/11/24 09:15 10/11/24 12:12 0.1 MG Aspirin 81 mg DAILY PO 10/11/24 10:00 10/12/24 09:15 81 MG Metoclopramide HCl 10 mg Q8HPRN PRN IV 10/11/24 09:15 10/11/24 11:45 10 MG Enteral Nutritional Formula 240 ml BIDWM PO 10/11/24 18:00 10/12/24 09:25 240 ML Metronidazole 100 ml @ 100 mls/hr Q8H IV 10/11/24 17:00 10/12/24 10:34 100 MLS/HR Amino Acids 0 ml @ 0 mls/hr PER PHARMACY IV 10/11/24 14:45 Diagnostic Test (Pha) 1 strip Q6HR 10/12/24 00:00 10/12/24 05:37 1 STRIP Insulin Human Regular FOLLOW SLIDING SCALE Q6HR SC 10/12/24 00:00 Dextrose 50 ml UD IV 10/12/24 00:00 Sodium Chloride 10 ml QSHIFT@10,22 IV 10/11/24 22:00 10/11/24 22:17 10 ML Amino Acids 1,000 ml @ 42 mls/hr DAILY@2200 IV 10/12/24 22:00 10/11/24 22:18 42 MLS/HR Laboratory Results Laboratory Tests 10/12/24 06:17 Chemistry Test 10/12/24 06:17 Albumin 3.1 g/dL (3.2-4.8) L Calcium Level 9.3 mg/dL (8.7-10.4) Magnesium Level 1.7 mg/dL (1.6-2.6) Phosphorus Level 1.9 mg/dL (2.4-5.1) L Total Protein 5.7 g/dL (5.7-8.2) Coagulation Test 10/11/24 11:30 10/12/24 06:17 Prothrombin Time 11.4 sec (9.3-11.8) 11.3 sec (9.3-11.8) Prothrombin Time INR 1.08 (0.9-1.15) 1.07 (0.9-1.15) Activated Partial Thromboplast Time 24.8 SEC (24.5-34.5) 24.8 SEC (24.5-34.5) Lipid panel Test 10/12/24 06:17 Triglycerides Level 68 mg/dL (< 150) LFT Test 10/12/24 06:17 Alanine Aminotransferase (ALT) 176 U/L (7-40) H Alkaline Phosphatase 782 U/L (46-116) H Aspartate Amino Transferase (AST) 135 U/L (13-40) H Total Bilirubin 1.5 mg/dL (0.2-1.0) H Urinalysis Test 10/07/24 17:08 Urine Color Yellow (Yellow) Urine Clarity Turbid (Clear) H Urine pH 6.0 (5.0-9.0) Urine Specific [facility] 1.014 (1.001-1.035) Urine Protein Trace (Negative) H Urine Ketones Negative (Negative) Urine Blood Negative /uL (Negative) Urine Nitrite Negative (Negative) Urine Bilirubin Negative (Negative) Urine Urobilinogen 2 mg/dL (Negative) H Urine Leukocyte Esterase Trace /uL (Negative) Urine RBC 9 /hpf (0 - 4) Urine WBC 13 /hpf (0 - 5) Urine Squamous Epithelial Cells Few /hpf (<5) Urine Bacteria Few /hpf (None Seen) H Urine Mucus Few (None Seen) Urine Glucose Normal mg/dL (Normal) Microbiology Microbiology Date/Time Source Procedure Growth Status 10/07/24 19:14 Blood Blood Culture - Preliminary NO GROWTH AFTER 72 HOURS OF INCUBATION. 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 Howard. Echocardiogram per in his discretion -full liquid diet, consider stopping TPN -continue IV hydration -continue statin and aspirin -antihypertensives -check CA 19-9, lipase -repeat CMP in am Total time spent with patient discussing and formulating plan of care: 35 minutes. Total time spent with patient and family regarding advance care plannin minutes. This medical document was created using an electronic medical record system with Dragon computerized dictation system. Although this document has been carefully reviewed, there may still be some phonetic and typographical errors. These areas are purely typographical due to imperfections of the software programs, and do not reflect any compromise in the patient's medical care. Plan discussed with: Patient, Spouse, Daughter, Other (RN) My Orders Orders - GLENN HORVATH NP Procedure Category Date Status Time Lipase LAB 10/12/24 Logged 10:42 Amylase LAB 10/12/24 Logged 10:42 Carbohydrate Antigen LAB 10/12/24 Logged 19-9 Comprehensive LAB 10/13/24 Verified Metabolic Panel 04:00 Date of Service: Oct 12, 2024 Billing Provider: GLENN HORVATH NP Common Visit Codes: [id number] INP/OBS CARE(HIGH) Secondary Visit Codes: [id number] CARE PLAN 30 MINUTES GLENN HORVATH NP Oct 12, 2024 11:04
[2024-10-12 11:40] LABS: Lipase 46 U/L (12-53)
[2024-10-12 11:42] LABS: Amylase 38 U/L (30-118)
[2024-10-12] MEDS: ENOXAPARIN SOD 60 MG/0.6 ML SYRINGE SC SCH (16:57)
[2024-10-12] MEDS: SODIUM PHOSPHATES 24 MEQ in SODIUM CHL 0.9% 100 ML IV ONE (18:39)
[2024-10-12] MEDS: DOXYCYCLINE 100 MG TAB/CAP PO SCH (22:00)
[2024-10-12] MEDS: IPRATROPIUM BROM 0.5 MG/2.5ML INH SOL NEB SCH (22:00)
[2024-10-12] MEDS: AMINO ACID INFUSION IN D5W 1,000 ML IV SCH (22:05)
[2024-10-13] VITALS (17 sets, daily range): BP systolic 116–199; BP diastolic 55–94; PULSE 70–92; RESP 12–20; TEMP 98–98.6; O2SAT 94–99
[2024-10-13] MEDS: hydrALAZINE HCL 20 MG/ML VL IV PRN (05:29)
--- NOTE | 2024-10-13 05:33 | DVH ---
EXAM: XY CHEST PORTABLE Indication: wet cough , wheezing Technique: Single frontal view of the chest was obtained Comparison: XY CHEST PORTABLE on DOS: 10/09/24 FINDINGS: Lines and Tubes: Right PICC tip projects over the superior vena cava. Lungs: No focal consolidation. Pleura: No effusion. No pneumothorax. Cardiomediastinal contours: Cardiomegaly. Bones: No acute osseous abnormality. IMPRESSION: Right PICC tip projects in appropriate position. No acute cardiopulmonary disease.
--- NOTE | 2024-10-13 05:51 | DVH ---
Clinical History: picc line placement Comparison: None Technique: Duplex Doppler evaluation of the right upper extremity vessels were obtained to assist in PICC line p lacement. Findings/Impression: Duplex Doppler evaluation of the right upper extremity vessels were obtained to assist in PICC line p lacement. Refer to operative report for further evaluation.
[2024-10-13 06:26] LABS: Phosphorus 2.8 mg/dL (2.4-5.1)
[2024-10-13 06:53] LABS: Anion Gap 11 (5-15); Blood Urea Nitrogen 13 mg/dL (9-23); Calcium 8.8 mg/dL (8.7-10.4); Magnesium 1.6 mg/dL (1.6-2.6)
[2024-10-13 06:57] LABS: Alanine Aminotransferase 159 U/L (7-40); Albumin 3.1 g/dL (3.2-4.8); Alkaline Phosphatase 908 U/L (46-116); Aspartate Aminotransferase 139 U/L (13-40); Bilirubin, Total 2.8 mg/dL (0.2-1.0); Carbon Dioxide 17 mmol/L (20-31); Chloride 106 mmol/L (98-107); Glucose 159 mg/dL (74-106); Potassium 2.9 mmol/L (3.5-5.1); Sodium 134 mmol/L (136-145); Total Protein 5.6 g/dL (5.7-8.2)
--- NOTE | 2024-10-13 13:26 | DVHPN2 ---
Subjective Patient continues to complain of headache. Reviewed: Care Plan, H&P, Labs, Medications, Previous Orders, Radiology Changes from previous H/P or p: No Changes General: Per HPI Objective Vitals Vital Signs Date Time Temp Pulse Resp B/P (MAP) Pulse Ox O2 Delivery O2 Flow Rate FiO2 10/13/24 10:00 94 Room Air 0.0 10/13/24 10:00 21 10/13/24 09:37 116/55 10/13/24 09:37 70 10/13/24 08:35 98.5 18 98.5 Intake/Output Intake and Output 10/13/24 07:00 Intake Total 3078 ml Output Total 960 ml Balance 2118 ml Intake Oral 1070 ml IV Total 2008 ml Output Urine Total 960 ml # Voids 2 General Appearance: Alert, Oriented X3, Cooperative, No acute distress HEENT: Atraumatic, PERRLA, EOMI, Mucous membr. moist/pink Neck: Supple Lungs: Clear to auscultation, Normal air movement Cardiovascular: Regular rate, Normal S1, Normal S2, No murmurs, Gallops Abdomen: Normal bowel sounds, Soft, No tenderness Neuro: Cranial nerves 3-12 NL Psych/Mental Status: Mental status NL Medications Current Medications Medications Dose Ordered Sig/Keven Route Start Time Stop Time Status Last Admin Dose Admin Acetaminophen/ Hydrocodone Bitart 1 tab Q4HP PRN PO 10/07/24 19:00 Acetaminophen 650 mg Q6HP PRN PO 10/07/24 19:00 10/12/24 17:06 650 MG Ceftriaxone Sodium 50 ml @ 100 mls/hr DAILY@09 IV 10/08/24 09:00 10/13/24 09:27 100 MLS/HR Metoprolol Succinate 25 mg DAILY PO 10/09/24 10:00 10/12/24 09:14 25 MG Folic Acid 1 mg DAILY PO 10/09/24 10:00 10/13/24 09:26 1 MG Hydroxychloroquine Sulfate 200 mg DAILY PO 10/09/24 10:00 10/13/24 09:26 200 MG Losartan Potassium 25 mg DAILY PO 10/09/24 10:00 10/12/24 09:13 25 MG Pantoprazole Sodium 40 mg DAILY@0630 IV 10/11/24 06:30 10/13/24 06:12 40 MG Potassium Chloride/Dextrose/ Sod Cl 1,000 ml @ 75 mls/hr [id number] IV 10/10/24 10:30 10/13/24 06:18 75 MLS/HR Atorvastatin Calcium 40 mg HS PO 10/10/24 22:00 10/11/24 22:14 40 MG Clonidine HCl 0.1 mg Q6HP PRN PO 10/11/24 09:15 10/13/24 00:49 0.1 MG Aspirin 81 mg DAILY PO 10/11/24 10:00 10/12/24 09:15 81 MG Metoclopramide HCl 10 mg Q8HPRN PRN IV 10/11/24 09:15 10/12/24 22:13 10 MG Enteral Nutritional Formula 240 ml BIDWM PO 10/11/24 18:00 10/13/24 09:22 240 ML Metronidazole 100 ml @ 100 mls/hr Q8H IV 10/11/24 17:00 10/13/24 09:27 100 MLS/HR Amino Acids 0 ml @ 0 mls/hr PER PHARMACY IV 10/11/24 14:45 Diagnostic Test (Pha) 1 strip Q6HR 10/12/24 00:00 10/13/24 06:18 1 STRIP Insulin Human Regular FOLLOW SLIDING SCALE Q6HR SC 10/12/24 00:00 Dextrose 50 ml UD IV 10/12/24 00:00 Sodium Chloride 10 ml QSHIFT@10,22 IV 10/11/24 22:00 10/13/24 09:37 10 ML Enoxaparin Sodium 60 mg Q12HR SC 10/12/24 14:00 10/13/24 09:29 60 MG Amino Acids 1,000 ml @ 42 mls/hr DAILY@2200 IV 10/12/24 22:00 10/13/24 21:59 10/12/24 22:05 42 MLS/HR Ipratropium [place] 0.5 mg Q8HR NEB 10/12/24 22:00 10/13/24 06:15 0.5 MG Doxycycline Monohydrate 100 mg Q12HR PO 10/12/24 22:00 Hydralazine HCl 10 mg Q6HP PRN IV 10/13/24 05:30 10/13/24 05:29 10 MG Fat Emulsion Intravenous 50 ml/ Sodium Acetate 20 meq/Sodium Phosphate 20 meq/ Potassium Acetate 20 meq/Magnesium Sulfate 8 meq/ Multivitamins 10 ml/Amino Acids/ Dextrose/Purified Water 1,087 ml @ 45 mls/hr [id number] IV 10/13/24 22:00 10/14/24 21:59 Laboratory Results Laboratory Tests 10/12/24 06:17 10/13/24 04:57 Chemistry Test 10/13/24 04:57 Albumin 3.1 g/dL (3.2-4.8) L Calcium Level 8.8 mg/dL (8.7-10.4) Magnesium Level 1.6 mg/dL (1.6-2.6) Phosphorus Level 2.8 mg/dL (2.4-5.1) Total Protein 5.6 g/dL (5.7-8.2) L LFT Test 10/13/24 04:57 Alanine Aminotransferase (ALT) 159 U/L (7-40) H Alkaline Phosphatase 908 U/L (46-116) H Aspartate Amino Transferase (AST) 139 U/L (13-40) H Total Bilirubin 2.8 mg/dL (0.2-1.0) H Urinalysis Test 10/07/24 17:08 Urine Color Yellow (Yellow) Urine Clarity Turbid (Clear) H Urine pH 6.0 (5.0-9.0) Urine Specific [place] 1.014 (1.001-1.035) Urine Protein Trace (Negative) H Urine Ketones Negative (Negative) Urine Blood Negative /uL (Negative) Urine Nitrite Negative (Negative) Urine Bilirubin Negative (Negative) Urine Urobilinogen 2 mg/dL (Negative) H Urine Leukocyte Esterase Trace /uL (Negative) Urine RBC 9 /hpf (0 - 4) Urine WBC 13 /hpf (0 - 5) Urine Squamous Epithelial Cells Few /hpf (<5) Urine Bacteria Few /hpf (None Seen) H Urine Mucus Few (None Seen) Urine Glucose Normal mg/dL (Normal) Microbiology Microbiology Date/Time Source Procedure Growth Status 10/07/24 19:14 Blood Blood Culture - Final NO GROWTH AFTER 5 DAYS OF INCUBATION. 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 This medical document was created using an electronic medical record system with [employer] dictation system. Although this document has been carefully reviewed, there may still be some phonetic and typographical errors. These areas are purely typographical due to imperfections of the software programs, and do not reflect any compromise in the patient's medical care. Plan discussed with: Patient, Other (RN) Date of Service: Oct 13, 2024 Billing Provider: GLENN HORVATH NP Common Visit Codes: [id number] INP/OBS CARE(HIGH) Procedure Codes: [id number] SEDATION +15MIN GLENN HORVATH NP Oct 13, 2024 13:26
[2024-10-13] MEDS: MAGNESIUM SULFATE 1GM/100ML 100 ML IV ONE (13:56)
[2024-10-13] MEDS: POTASSIUM CHLORIDE 40 MEQ, LIDOCAINE 1% (LOCAL ANESTH.) 4 ML in SODIUM CHL 0.9% 250 ML IV ONE (15:30)
[2024-10-13] MEDS: TPN PER PHARMACY IV NR (22:54)
[2024-10-14] VITALS (15 sets, daily range): BP systolic 116–181; BP diastolic 58–89; PULSE 74–98; RESP 16–20; TEMP 97.3–98.3; O2SAT 94–100
[2024-10-14 07:22] LABS: Alanine Aminotransferase 114 U/L (7-40); Albumin 2.7 g/dL (3.2-4.8); Alkaline Phosphatase 741 U/L (46-116); Anion Gap 7 (5-15); BUN/Creatinine Ratio 25.9 (10.0-20.0); Blood Urea Nitrogen 14 mg/dL (9-23); Calcium 8.6 mg/dL (8.7-10.4); Carbon Dioxide 19 mmol/L (20-31); Chloride 110 mmol/L (98-107); Glucose 156 mg/dL (74-106); Magnesium 1.9 mg/dL (1.6-2.6); Potassium 3.6 mmol/L (3.5-5.1); Sodium 136 mmol/L (136-145)
[2024-10-14 07:23] LABS: Aspartate Aminotransferase 97 U/L (13-40); Bilirubin, Total 1.5 mg/dL (0.2-1.0); Phosphorus 1.7 mg/dL (2.4-5.1); Total Protein 4.8 g/dL (5.7-8.2)
--- NOTE | 2024-10-14 10:20 | DVHPN2 ---
Progress Note Date Seen: Oct 14, 2024 Medical Necessity Reason Pt with a Central, PICC or Fol: No Subjective Patient reports: No new complaints Review of Systems: HEENT:Normal, CVS:Normal, RESPIRATORY:Normal, GI:Normal, :Normal, MSK:Normal, NEURO:Normal Objective vital signs Vital Sign Date Time Temp Pulse Resp B/P (MAP) Pulse Ox O2 Delivery O2 Flow Rate FiO2 10/14/24 09:00 98.2 91 19 150/70 (96) 94 98.2 10/14/24 08:00 Room Air* 0 21 Total Intake and Output 10/13/24 10/13/24 10/14/24 15:00 23:00 07:00 Intake Total 1164 ml 240 ml Output Total 1200 ml Balance -36 ml 240 ml medications Current Medications Medications Dose Ordered Sig/Keven Route Start Time Stop Time Status Last Admin Dose Admin Acetaminophen/ Hydrocodone Bitart 1 tab Q4HP PRN PO 10/07/24 19:00 Acetaminophen 650 mg Q6HP PRN PO 10/07/24 19:00 10/13/24 19:00 650 MG Ceftriaxone Sodium 50 ml @ 100 mls/hr DAILY@09 IV 10/08/24 09:00 10/13/24 09:27 100 MLS/HR Metoprolol Succinate 25 mg DAILY PO 10/09/24 10:00 10/12/24 09:14 25 MG Folic Acid 1 mg DAILY PO 10/09/24 10:00 10/13/24 09:26 1 MG Hydroxychloroquine Sulfate 200 mg DAILY PO 10/09/24 10:00 10/13/24 09:26 200 MG Losartan Potassium 25 mg DAILY PO 10/09/24 10:00 10/12/24 09:13 25 MG Pantoprazole Sodium 40 mg DAILY@0630 IV 10/11/24 06:30 10/14/24 06:06 40 MG Potassium Chloride/Dextrose/ Sod Cl 1,000 ml @ 75 mls/hr [id number] IV 10/10/24 10:30 10/14/24 00:03 75 MLS/HR Atorvastatin Calcium 40 mg HS PO 10/10/24 22:00 10/13/24 23:02 40 MG Clonidine HCl 0.1 mg Q6HP PRN PO 10/11/24 09:15 10/14/24 01:11 0.1 MG Aspirin 81 mg DAILY PO 10/11/24 10:00 10/13/24 10:00 81 MG Metoclopramide HCl 10 mg Q8HPRN PRN IV 10/11/24 09:15 10/12/24 22:13 10 MG Enteral Nutritional Formula 240 ml BIDWM PO 10/11/24 18:00 10/13/24 18:40 240 ML Metronidazole 100 ml @ 100 mls/hr Q8H IV 10/11/24 17:00 10/14/24 01:08 100 MLS/HR Amino Acids 0 ml @ 0 mls/hr PER PHARMACY IV 10/11/24 14:45 Diagnostic Test (Pha) 1 strip Q6HR 10/12/24 00:00 10/14/24 06:06 1 STRIP Insulin Human Regular FOLLOW SLIDING SCALE Q6HR SC 10/12/24 00:00 10/14/24 06:06 2 UNITS Dextrose 50 ml UD IV 10/12/24 00:00 Sodium Chloride 10 ml QSHIFT@10,22 IV 10/11/24 22:00 10/13/24 22:00 10 ML Enoxaparin Sodium 60 mg Q12HR SC 10/12/24 14:00 10/13/24 23:02 60 MG Ipratropium [place] 0.5 mg Q8HR NEB 10/12/24 22:00 10/14/24 06:24 0.5 MG Doxycycline Monohydrate 100 mg Q12HR PO 10/12/24 22:00 10/13/24 23:01 100 MG Hydralazine HCl 10 mg Q6HP PRN IV 10/13/24 05:30 10/13/24 05:29 10 MG Fat Emulsion Intravenous 50 ml/ Sodium Acetate 20 meq/Sodium Phosphate 20 meq/ Potassium Acetate 20 meq/Magnesium Sulfate 8 meq/ Multivitamins 10 ml/Amino Acids/ Dextrose/Purified Water 1,087 ml @ 45 mls/hr [id number] IV 10/13/24 22:00 10/14/24 21:59 10/13/24 22:54 45 MLS/HR Examination: GENERAL:Normal, HEENT:Normal, NECK:Normal, LUNGS:Normal, CVS:Normal, ABDOMEN:Normal, MSK:Normal, SKIN:Normal, NEURO:Normal, :Normal laboratory and microbiology Laboratory Tests 10/14/24 05:04 10/12/24 06:17 Test 10/14/24 05:04 Range/Units Serum Glucose 156 H 74-106 mg/dL Microbiology Date/Time Source Procedure Growth Status 10/07/24 19:14 Blood Blood Culture - Final NO GROWTH AFTER 5 DAYS OF INCUBATION. Complete 10/07/24 10:51 Voided Urine Urine Culture - Final Complete Problem List/Assessment/Plan Problem List/Assessment/Plan #1 s/p fall #2 sepsis with uti: culture, iv rocephin #3 RA: hold mtx, plaquenil #4 htn #5 cad s/p stent #6 anemia #7 headache/vomiting: mri brain, ivf, #8 gallstones with ?cbd stones ? acute [place]: iv antibiotics, mrcp #9 acute cva: asa, echo #10 carotid stenosis: dw dr Howard #11 ?pancreatic mass/malignancy: ? mri with contrast #12 nutrition: on tpn long discussion with family regards reports advance care planning- full code- time spent 19 mins Plan discussed with: Patient, Spouse, Daughter Dietary Evaluation Review Comments: Monitor PO intake to meet 75% of her needs Expected Outcomes/Goals: maintain weight Date of Service: Oct 14, 2024 Billing Provider: ELÍAS CYR MD Common Visit Codes: [id number] INP/OBS CARE(HIGH) ELÍAS CYR MD Oct 14, 2024 10:20
--- NOTE | 2024-10-14 13:48 | DVHPN2 ---
Progress Note - Dictate Date Seen: Oct 11, 2024 Medical Necessity Reason Pt with a Central, PICC or Fol: No Subjective PT WITH LETHARGY WEAKNESS HAD A FALL BECAUSE OF WEAKNESS SEEN IN CLINIC ABOUT 5 DAYS AGO FOR SAME IV FLUID WITH MVI WAS GIVEN WITH ABX AND STEROIDS NOW WITH LEUKOCYTOSIS CT OF HEAD WITH POSSIBLE MASS PMH HTN LABILE vital signs Vital Sign Date Time Temp Pulse Resp B/P (MAP) Pulse Ox O2 Delivery O2 Flow Rate FiO2 10/14/24 13:34 81 18 100 10/14/24 13:28 Room Air* 0 21 10/14/24 11:01 150/70 10/14/24 09:00 98.2 98.2 Total Intake and Output 10/13/24 10/13/24 10/14/24 15:00 23:00 07:00 Intake Total 1164 ml 240 ml Output Total 1200 ml Balance -36 ml 240 ml medications Current Medications Medications Dose Ordered Sig/Keven Route Start Time Stop Time Status Last Admin Dose Admin Acetaminophen/ Hydrocodone Bitart 1 tab Q4HP PRN PO 10/07/24 19:00 Acetaminophen 650 mg Q6HP PRN PO 10/07/24 19:00 10/14/24 11:00 650 MG Ceftriaxone Sodium 50 ml @ 100 mls/hr DAILY@09 IV 10/08/24 09:00 10/14/24 10:56 100 MLS/HR Metoprolol Succinate 25 mg DAILY PO 10/09/24 10:00 10/14/24 11:01 25 MG Folic Acid 1 mg DAILY PO 10/09/24 10:00 10/14/24 10:58 1 MG Hydroxychloroquine Sulfate 200 mg DAILY PO 10/09/24 10:00 10/14/24 11:00 200 MG Losartan Potassium 25 mg DAILY PO 10/09/24 10:00 10/14/24 10:59 25 MG Pantoprazole Sodium 40 mg DAILY@0630 IV 10/11/24 06:30 10/14/24 06:06 40 MG Atorvastatin Calcium 40 mg HS PO 10/10/24 22:00 10/13/24 23:02 40 MG Clonidine HCl 0.1 mg Q6HP PRN PO 10/11/24 09:15 10/14/24 01:11 0.1 MG Aspirin 81 mg DAILY PO 10/11/24 10:00 10/14/24 10:58 81 MG Metoclopramide HCl 10 mg Q8HPRN PRN IV 10/11/24 09:15 10/12/24 22:13 10 MG Enteral Nutritional Formula 240 ml BIDWM PO 10/11/24 18:00 10/14/24 10:55 240 ML Metronidazole 100 ml @ 100 mls/hr Q8H IV 10/11/24 17:00 10/14/24 10:56 100 MLS/HR Amino Acids 0 ml @ 0 mls/hr PER PHARMACY IV 10/11/24 14:45 Diagnostic Test (Pha) 1 strip Q6HR 10/12/24 00:00 10/14/24 12:10 1 STRIP Insulin Human Regular FOLLOW SLIDING SCALE Q6HR SC 10/12/24 00:00 10/14/24 12:12 2 UNITS Dextrose 50 ml UD IV 10/12/24 00:00 Sodium Chloride 10 ml QSHIFT@10,22 IV 10/11/24 22:00 10/14/24 10:56 10 ML Enoxaparin Sodium 60 mg Q12HR SC 10/12/24 14:00 10/14/24 10:00 60 MG Ipratropium [place] 0.5 mg Q8HR NEB 10/12/24 22:00 10/14/24 13:27 0.5 MG Hydralazine HCl 10 mg Q6HP PRN IV 10/13/24 05:30 10/13/24 05:29 10 MG Fat Emulsion Intravenous 50 ml/ Sodium Acetate 20 meq/Sodium Phosphate 20 meq/ Potassium Acetate 20 meq/Magnesium Sulfate 8 meq/ Multivitamins 10 ml/Amino Acids/ Dextrose/Purified Water 1,087 ml @ 45 mls/hr [id number] IV 10/13/24 22:00 10/14/24 21:59 10/13/24 22:54 45 MLS/HR Fat Emulsion Intravenous 50 ml/ Sodium Acetate 30 meq/Sodium Phosphate 30 meq/ Potassium Acetate 20 meq/Potassium Phosphate 22 meq/ Magnesium Sulfate 12 meq/ Multivitamins 10 ml/Insulin Human Regular 2 units/ Amino Acids/ Dextrose/Purified Water 1,050.52 ml @ 43 mls/hr [id number] IV 10/14/24 22:00 10/15/24 21:59 laboratory and microbiology Laboratory Tests 10/14/24 05:04 10/12/24 06:17 Test 10/14/24 05:04 Range/Units Serum Glucose 156 H 74-106 mg/dL Problem List LETHARGY WEAKNESS HAD A FALL BECAUSE OF WEAKNESS SEEN IN CLINIC ABOUT 5 DAYS AGO FOR SAME IV FLUID WITH MVI WAS GIVEN WITH ABX AND STEROIDS NOW WITH LEUKOCYTOSIS CT OF HEAD WITH POSSIBLE MASS PMH HTN LABILE Assessment/Plan MRI/MRA OF BRAIN ABX STEROIDS IV FLUID TACHYCARDIA MRI WITH AND WITHOUT CONTRAST CONSISTENT WITH SUBACUTE CVA PHYSICAL THERAPY STILL WITH HEADACHE CAROTID DOPPLER C/W BILATERAL 70% ICA STENOSIS CAROTID ANGIO OUTPATIENT DAPT MRCP 1. Focal severe narrowing of the common bile duct at the level of the pancreatic head. Findings are suspicious for pancreatic mass causing obstruction, with dilation of the common bile duct proximal to the level of the pancreatic head and dilated pancreatic duct also noted. Stricture would be less likely. Correlate with clinical findings. Pancreatic protocol MRI without and with contrast recommended. 2. Distended gallbladder. Gallstones visualized at the gallbladder neck and cystic duct. 3. Multiple small cysts are seen along the course of the dilated pancreatic duct. Dietary Evaluation Review Comments: Monitor PO intake to meet 75% of her needs Expected Outcomes/Goals: maintain weight Plan discussed with: Patient Critical Care Time(min): 35 JOSE ANGEL HALE MD Oct 14, 2024 13:48
--- NOTE | 2024-10-14 13:50 | DVHPN2 ---
Progress Note - Dictate Date Seen: Oct 13, 2024 Medical Necessity Reason Pt with a Central, PICC or Fol: No Subjective PT WITH LETHARGY WEAKNESS HAD A FALL BECAUSE OF WEAKNESS SEEN IN CLINIC ABOUT 5 DAYS AGO FOR SAME IV FLUID WITH MVI WAS GIVEN WITH ABX AND STEROIDS NOW WITH LEUKOCYTOSIS CT OF HEAD WITH POSSIBLE MASS PMH HTN LABILE vital signs Vital Sign Date Time Temp Pulse Resp B/P (MAP) Pulse Ox O2 Delivery O2 Flow Rate FiO2 10/14/24 13:34 81 18 100 10/14/24 13:28 Room Air* 0 21 10/14/24 11:01 150/70 10/14/24 09:00 98.2 98.2 Total Intake and Output 10/13/24 10/13/24 10/14/24 15:00 23:00 07:00 Intake Total 1164 ml 240 ml Output Total 1200 ml Balance -36 ml 240 ml medications Current Medications Medications Dose Ordered Sig/Keven Route Start Time Stop Time Status Last Admin Dose Admin Acetaminophen/ Hydrocodone Bitart 1 tab Q4HP PRN PO 10/07/24 19:00 Acetaminophen 650 mg Q6HP PRN PO 10/07/24 19:00 10/14/24 11:00 650 MG Ceftriaxone Sodium 50 ml @ 100 mls/hr DAILY@09 IV 10/08/24 09:00 10/14/24 10:56 100 MLS/HR Metoprolol Succinate 25 mg DAILY PO 10/09/24 10:00 10/14/24 11:01 25 MG Folic Acid 1 mg DAILY PO 10/09/24 10:00 10/14/24 10:58 1 MG Hydroxychloroquine Sulfate 200 mg DAILY PO 10/09/24 10:00 10/14/24 11:00 200 MG Losartan Potassium 25 mg DAILY PO 10/09/24 10:00 10/14/24 10:59 25 MG Pantoprazole Sodium 40 mg DAILY@0630 IV 10/11/24 06:30 10/14/24 06:06 40 MG Atorvastatin Calcium 40 mg HS PO 10/10/24 22:00 10/13/24 23:02 40 MG Clonidine HCl 0.1 mg Q6HP PRN PO 10/11/24 09:15 10/14/24 01:11 0.1 MG Aspirin 81 mg DAILY PO 10/11/24 10:00 10/14/24 10:58 81 MG Metoclopramide HCl 10 mg Q8HPRN PRN IV 10/11/24 09:15 10/12/24 22:13 10 MG Enteral Nutritional Formula 240 ml BIDWM PO 10/11/24 18:00 10/14/24 10:55 240 ML Metronidazole 100 ml @ 100 mls/hr Q8H IV 10/11/24 17:00 10/14/24 10:56 100 MLS/HR Amino Acids 0 ml @ 0 mls/hr PER PHARMACY IV 10/11/24 14:45 Diagnostic Test (Pha) 1 strip Q6HR 10/12/24 00:00 10/14/24 12:10 1 STRIP Insulin Human Regular FOLLOW SLIDING SCALE Q6HR SC 10/12/24 00:00 10/14/24 12:12 2 UNITS Dextrose 50 ml UD IV 10/12/24 00:00 Sodium Chloride 10 ml QSHIFT@10,22 IV 10/11/24 22:00 10/14/24 10:56 10 ML Enoxaparin Sodium 60 mg Q12HR SC 10/12/24 14:00 10/14/24 10:00 60 MG Ipratropium [place] 0.5 mg Q8HR NEB 10/12/24 22:00 10/14/24 13:27 0.5 MG Hydralazine HCl 10 mg Q6HP PRN IV 10/13/24 05:30 10/13/24 05:29 10 MG Fat Emulsion Intravenous 50 ml/ Sodium Acetate 20 meq/Sodium Phosphate 20 meq/ Potassium Acetate 20 meq/Magnesium Sulfate 8 meq/ Multivitamins 10 ml/Amino Acids/ Dextrose/Purified Water 1,087 ml @ 45 mls/hr [id number] IV 10/13/24 22:00 10/14/24 21:59 10/13/24 22:54 45 MLS/HR Fat Emulsion Intravenous 50 ml/ Sodium Acetate 30 meq/Sodium Phosphate 30 meq/ Potassium Acetate 20 meq/Potassium Phosphate 22 meq/ Magnesium Sulfate 12 meq/ Multivitamins 10 ml/Insulin Human Regular 2 units/ Amino Acids/ Dextrose/Purified Water 1,050.52 ml @ 43 mls/hr [id number] IV 10/14/24 22:00 10/15/24 21:59 laboratory and microbiology Laboratory Tests 10/14/24 05:04 10/12/24 06:17 Test 10/14/24 05:04 Range/Units Serum Glucose 156 H 74-106 mg/dL Problem List LETHARGY WEAKNESS HAD A FALL BECAUSE OF WEAKNESS SEEN IN CLINIC ABOUT 5 DAYS AGO FOR SAME IV FLUID WITH MVI WAS GIVEN WITH ABX AND STEROIDS NOW WITH LEUKOCYTOSIS CT OF HEAD WITH POSSIBLE MASS PMH HTN LABILE Assessment/Plan MRI/MRA OF BRAIN ABX STEROIDS IV FLUID TACHYCARDIA MRI WITH AND WITHOUT CONTRAST CONSISTENT WITH SUBACUTE CVA PHYSICAL THERAPY STILL WITH HEADACHE CAROTID DOPPLER C/W BILATERAL 70% ICA STENOSIS CAROTID ANGIO OUTPATIENT DAPT MRCP 1. Focal severe narrowing of the common bile duct at the level of the pancreatic head. Findings are suspicious for pancreatic mass causing obstruction, with dilation of the common bile duct proximal to the level of the pancreatic head and dilated pancreatic duct also noted. Stricture would be less likely. Correlate with clinical findings. Pancreatic protocol MRI without and with contrast recommended. 2. Distended gallbladder. Gallstones visualized at the gallbladder neck and cystic duct. 3. Multiple small cysts are seen along the course of the dilated pancreatic duct. LFT ELEVATED MAY REQUIRE COMMON DUCT STENTING TRANSFER TO [facility] Dietary Evaluation Review Comments: Monitor PO intake to meet 75% of her needs Expected Outcomes/Goals: maintain weight Plan discussed with: Patient, Spouse, Daughter, Son Critical Care Time(min): 35 JOSE ANGEL HALE MD Oct 14, 2024 13:50
--- NOTE | 2024-10-14 16:27 | DVHSR ---
APPROVED REPORT EXAM: Two-dimensional and M-mode echocardiogram with Doppler and color Doppler. Blood Pressure: 134/71 mmHg INDICATION RULE OUT THROMBUS GIVEN ACUTE CVA RISK FACTORS Height: 5'4, Weight: 136 DIMENSIONS LVDd3.9 (3.8-5.7cm)LA (2D)3.0 (1.9-4.0cm)Aortic Root3.0 (2.0-3.7cm) LVDs2.6 (2.5-4.0cm)LA (MM) (1.9-4.0cm)Aortic Cusp Exc1.3 (1.5-2.0cm) EF (%) 60.0 (55-70%)Rt. Atrium3.4 (1.9-4.0cm)Asc. Aorta3.1 cm IVSd1.0 (0.7-1.1cm)RV (D) (1.8-2.4cm) PWd1.4 (0.7-1.1cm) Mitral Valve MitralMitral Stenosis E wave0.83m/sMV Mean GR.mmHg A wave1.05m/sMV Peak GR.mmHg E/A ratio0.82D MVAcm2 DECEL [id number] 1/2 Timems Aortic Valve Aortic ValveAortic Stenosis V11.05m/Jorge Mean GR.6mmHg V21.59m/Jorge Peak GR.10mmHg LVOT Diameter1.9 (1.8-2.4cm)Doppler AVA1.87cm2 Pulmonic Valve V20.94m/s Tricuspid Valve TR Velocity2.46m/s [id number] Other Information Quality : Technically LimitedRhythm : Technically limited study due to patient position. Conclusion EF >55% MILD TR MILD MR NO PERICARDIAL EFFUSION
[2024-10-14] MEDS: POTASSIUM PHOSPHATE 22 MEQ in SODIUM CHL 0.9% 100 ML IV ONE (17:58)
[2024-10-14] MEDS: TPN PER PHARMACY IV NR (22:35)
[2024-10-15] VITALS (15 sets, daily range): BP systolic 122–169; BP diastolic 63–78; PULSE 62–91; RESP 16–19; TEMP 97.3–98.9; O2SAT 94–100
[2024-10-15 07:02] LABS: Basophils # (auto) 0 10 ^3/uL (0-0.2); Basophils % (auto) 0.5 % (0.0-2.0); Eosinophils # (auto) 0.1 10 ^3/uL (0-0.8); Eosinophils % (auto) 1.2 % (0.0-7.0); Hematocrit 29.2 % (36.0-46.0); Lymphocytes % (auto) 22.2 % (10.0-50.0); Mean Corpuscular Hemoglobin 33.4 pg (28.0-32.0); Mean Corpuscular Hgb Conc. 34.1 g/dL (32.0-36.0); Mean Corpuscular Volume 98.1 fL (80.0-100.0); Monocytes # (auto) 0.6 10 ^3/uL (0-1.3); Neutrophils # (auto) 2.9 10 ^3/uL (1.6-8.6); Neutrophils % (auto) 62.1 % (37.0-80.0); Nucleated Red Blood Cells % 0.1 %; Platelet Count (auto) 126 10^3/uL (140-450); Red Blood Cells 2.98 10^6/uL (4.0-5.20); Red Cell Distribution Width 15.3 % (11.8-14.3); White Blood Cell 4.6 10^3/uL (4.4-10.8)
[2024-10-15 07:15] LABS: Anion Gap 7 (5-15); BUN/Creatinine Ratio 30.4 (10.0-20.0); Blood Urea Nitrogen 14 mg/dL (9-23); Calcium 8.8 mg/dL (8.7-10.4); Magnesium 1.9 mg/dL (1.6-2.6); Potassium 3.9 mmol/L (3.5-5.1); Sodium 137 mmol/L (136-145)
[2024-10-15 07:16] LABS: Phosphorus 3.5 mg/dL (2.4-5.1)
[2024-10-15 07:25] LABS: Alanine Aminotransferase 103 U/L (7-40); Albumin 2.9 g/dL (3.2-4.8); Alkaline Phosphatase 891 U/L (46-116); Aspartate Aminotransferase 98 U/L (13-40); Bilirubin, Total 1.4 mg/dL (0.2-1.0); Carbon Dioxide 20 mmol/L (20-31); Chloride 110 mmol/L (98-107); Glucose 114 mg/dL (74-106); Total Protein 5.2 g/dL (5.7-8.2)
--- NOTE | 2024-10-15 11:03 | DVHPN2 ---
Progress Note Date Seen: Oct 15, 2024 Medical Necessity Reason Pt with a Central, PICC or Fol: No Subjective Patient reports: No new complaints Review of Systems: HEENT:Normal, CVS:Normal, RESPIRATORY:Normal, GI:Normal, :Normal, MSK:Normal, NEURO:Normal Objective vital signs Vital Sign Date Time Temp Pulse Resp B/P (MAP) Pulse Ox O2 Delivery O2 Flow Rate FiO2 10/15/24 09:31 141/62 10/15/24 09:31 88 10/15/24 08:42 98.7 17 95 98.7 10/15/24 08:00 Room Air* 0 21 Total Intake and Output 10/14/24 10/14/24 10/15/24 15:00 23:00 07:00 Intake Total 200 ml 1450 ml 450 ml Output Total 1600 ml Balance 200 ml -150 ml 450 ml medications Current Medications Medications Dose Ordered Sig/Keven Route Start Time Stop Time Status Last Admin Dose Admin Acetaminophen/ Hydrocodone Bitart 1 tab Q4HP PRN PO 10/07/24 19:00 Acetaminophen 650 mg Q6HP PRN PO 10/07/24 19:00 10/15/24 08:09 650 MG Ceftriaxone Sodium 50 ml @ 100 mls/hr DAILY@09 IV 10/08/24 09:00 10/15/24 08:19 100 MLS/HR Metoprolol Succinate 25 mg DAILY PO 10/09/24 10:00 10/15/24 09:31 25 MG Folic Acid 1 mg DAILY PO 10/09/24 10:00 10/15/24 09:21 1 MG Hydroxychloroquine Sulfate 200 mg DAILY PO 10/09/24 10:00 10/15/24 09:21 200 MG Losartan Potassium 25 mg DAILY PO 10/09/24 10:00 10/15/24 09:31 25 MG Pantoprazole Sodium 40 mg DAILY@0630 IV 10/11/24 06:30 10/15/24 06:16 40 MG Atorvastatin Calcium 40 mg HS PO 10/10/24 22:00 10/14/24 22:28 40 MG Clonidine HCl 0.1 mg Q6HP PRN PO 10/11/24 09:15 10/14/24 01:11 0.1 MG Aspirin 81 mg DAILY PO 10/11/24 10:00 10/15/24 09:21 81 MG Metoclopramide HCl 10 mg Q8HPRN PRN IV 10/11/24 09:15 10/12/24 22:13 10 MG Enteral Nutritional Formula 240 ml BIDWM PO 10/11/24 18:00 10/15/24 08:00 240 ML Metronidazole 100 ml @ 100 mls/hr Q8H IV 10/11/24 17:00 10/15/24 09:31 100 MLS/HR Amino Acids 0 ml @ 0 mls/hr PER PHARMACY IV 10/11/24 14:45 Diagnostic Test (Pha) 1 strip Q6HR 10/12/24 00:00 10/15/24 06:22 1 STRIP Insulin Human Regular FOLLOW SLIDING SCALE Q6HR SC 10/12/24 00:00 10/15/24 00:35 2 UNITS Dextrose 50 ml UD IV 10/12/24 00:00 Sodium Chloride 10 ml QSHIFT@10,22 IV 10/11/24 22:00 10/15/24 09:21 10 ML Enoxaparin Sodium 60 mg Q12HR SC 10/12/24 14:00 10/15/24 09:21 60 MG Ipratropium [place] 0.5 mg Q8HR NEB 10/12/24 22:00 10/15/24 06:05 0.5 MG Hydralazine HCl 10 mg Q6HP PRN IV 10/13/24 05:30 10/15/24 08:10 10 MG Fat Emulsion Intravenous 50 ml/ Sodium Acetate 30 meq/Sodium Phosphate 30 meq/ Potassium Acetate 20 meq/Potassium Phosphate 22 meq/ Magnesium Sulfate 12 meq/ Multivitamins 10 ml/Insulin Human Regular 2 units/ Amino Acids/ Dextrose/Purified Water 1,050.52 ml @ 43 mls/hr [id number] IV 10/14/24 22:00 10/15/24 21:59 10/14/24 22:35 43 MLS/HR Fat Emulsion Intravenous 50 ml/ Sodium Acetate 40 meq/Sodium Phosphate 40 meq/ Potassium Acetate 40 meq/Magnesium Sulfate 16 meq/ Multivitamins 10 ml/Chromium/ Copper/Manganese/ Zinc 1 ml/Amino Acids/Dextrose/ Purified Water 1,115 ml @ 46 mls/hr [id number] IV 10/15/24 22:00 10/16/24 21:59 Examination: GENERAL:Normal, HEENT:Normal, NECK:Normal, LUNGS:Normal, CVS:Normal, ABDOMEN:Normal, MSK:Normal, SKIN:Normal, NEURO:Normal, :Normal laboratory and microbiology Laboratory Tests 10/15/24 05:17 Test 10/15/24 05:17 Range/Units Serum Glucose 114 H 74-106 mg/dL Microbiology Date/Time Source Procedure Growth Status 10/07/24 19:14 Blood Blood Culture - Final NO GROWTH AFTER 5 DAYS OF INCUBATION. Complete 10/07/24 10:51 Voided Urine Urine Culture - Final Complete Problem List/Assessment/Plan Problem List/Assessment/Plan #1 s/p fall #2 sepsis with uti: culture, iv rocephin #3 RA: hold mtx, plaquenil #4 htn #5 cad s/p stent #6 anemia #7 headache/vomiting: mri brain, #8 gallstones with ?cbd stones ? acute florence: iv antibiotics, mrcp #9 acute cva: asa, echo #10 carotid stenosis: dw dr Howard #11 ?pancreatic mass/malignancy: ? mri with contrast #12 nutrition: wean off tpn- pt eating well long discussion with family regards reports advance care planning- full code- time spent 19 mins Plan discussed with: Patient, Spouse, Daughter Dietary Evaluation Review Comments: Monitor PO intake to meet 75% of her needs Expected Outcomes/Goals: maintain weight Date of Service: Oct 15, 2024 Billing Provider: ELÍAS CYR MD Common Visit Codes: [id number] INP/OBS CARE(HIGH) ELÍAS CYR MD Oct 15, 2024 11:03
--- NOTE | 2024-10-15 12:47 | DVHDS2 ---
Discharge Summary Date of Admission Oct 07, 2024 at 18:54 Date of Discharge: Oct 15, 2024 Labs/Diagnostic Data: Laboratory Results Test 10/15/24 05:17 10/14/24 18:06 10/12/24 06:17 10/09/24 05:46 White Blood Count 4.6 10^3/uL (4.4-10.8) Red Blood Count 2.98 10^6/uL (4.0-5.20) Hemoglobin 10.0 g/dL (12.2-16.2) Hematocrit 29.2 % (36.0-46.0) Mean Corpuscular Volume 98.1 fL (80.0-100.0) Mean Corpuscular Hemoglobin 33.4 pg (28.0-32.0) Mean Corpuscular Hemoglobin Concent 34.1 g/dL (32.0-36.0) Red Cell Distribution Width 15.3 % (11.8-14.3) Platelet Count 126 10^3/uL (140-450) Mean Platelet Volume 9.5 fL (6.9-10.8) Neutrophils (%) (Auto) 62.1 % (37.0-80.0) Lymphocytes (%) (Auto) 22.2 % (10.0-50.0) Monocytes (%) (Auto) 14.0 % (0.0-12.0) Eosinophils (%) (Auto) 1.2 % (0.0-7.0) Basophils (%) (Auto) 0.5 % (0.0-2.0) Neutrophils # (Auto) 2.9 10 ^3/uL (1.6-8.6) Lymphocytes # (Auto) 1.0 10 ^3/uL (0.4-5.4) Monocytes # (Auto) 0.6 10 ^3/uL (0-1.3) Eosinophils # (Auto) 0.1 10 ^3/uL (0-0.8) Basophils # (Auto) 0 10 ^3/uL (0-0.2) Nucleated Red Blood Cells 0.1 % Sodium Level 137 mmol/L (136-145) Potassium Level 3.9 mmol/L (3.5-5.1) Chloride Level 110 mmol/L (98-107) Carbon Dioxide Level 20 mmol/L (20-31) Anion Gap 7 (5-15) Blood Urea Nitrogen 14 mg/dL (9-23) Creatinine 0.46 mg/dL (0.550-1.02) Glomerular Filtration Rate Calc 97 mL/min (>90) BUN/Creatinine Ratio 30.4 (10.0-20.0) Serum Glucose 114 mg/dL (74-106) Calcium Level 8.8 mg/dL (8.7-10.4) Phosphorus Level 3.5 mg/dL (2.4-5.1) Magnesium Level 1.9 mg/dL (1.6-2.6) Total Bilirubin 1.4 mg/dL (0.2-1.0) Aspartate Amino Transferase (AST) 98 U/L (13-40) Alanine Aminotransferase (ALT) 103 U/L (7-40) Alkaline Phosphatase 891 U/L (46-116) Total Protein 5.2 g/dL (5.7-8.2) Albumin 2.9 g/dL (3.2-4.8) POC Glucose 112 mg/dl (70-106) Prothrombin Time 11.3 sec (9.3-11.8) Prothrombin Time INR 1.07 (0.9-1.15) Activated Partial Thromboplast Time 24.8 SEC (24.5-34.5) Triglycerides Level 68 mg/dL (< 150) Amylase Level 38 U/L (30-118) Lipase 46 U/L (12-53) CA 19-9 Antigen 470 U/mL (0-35) Thyroid Stimulating Hormone (TSH) 2.06 uIU/mL (0.55-4.78) Test 10/07/24 19:14 10/07/24 17:08 Lactic Acid Level 1.0 mmol/L (0.4-2.0) Urine Color Yellow (Yellow) Urine Clarity Turbid (Clear) Urine pH 6.0 (5.0-9.0) Urine Specific [place] 1.014 (1.001-1.035) Urine Protein Trace (Negative) Urine Ketones Negative (Negative) Urine Blood Negative /uL (Negative) Urine Nitrite Negative (Negative) Urine Bilirubin Negative (Negative) Urine Urobilinogen 2 mg/dL (Negative) Urine Leukocyte Esterase Trace /uL (Negative) Urine RBC 9 /hpf (0 - 4) Urine WBC 13 /hpf (0 - 5) Urine Squamous Epithelial Cells Few /hpf (<5) Urine Bacteria Few /hpf (None Seen) Urine Mucus Few (None Seen) Urine Glucose Normal mg/dL (Normal) Other Laboratory Tests 10/15/24 05:17 Brief Hx & Hospital Course: SEE DICTATED NOTE Condition at Discharge: Fair Final Diagnosis/Problems List PANCREATIC MASS Discharge Disposition: Acute Care Facility Discharge Instruct/Medications Diet: Regular Activity: No Restrictions, As Tolerated Follow Up/Referral: FU WITH DR WALTER Medications: PER DEC Discharge Statement: "Patient was advised to return to the ER or call 911 if any headaches, dizziness, shortness of breath, chest pain, abdominal pain, bleeding, fevers, or worsening of medical condition. Patient was counseled about treatment plan, medications, possible side effects, patientverbalized understanding. All questions were answered to the best of my ability. This discharge took greater then 30 minutes in planning, reviewing documentation, counseling the patient, and discussing with other team members." ASSESSMENT ASSESSMENT Assessment PANCREATIC MASS Date of Service: Oct 15, 2024 Billing Provider: ELÍAS CYR MD Common Visit Codes: 11604-DTF/OBS DISCH DAY >30min ELÍAS CYR MD Oct 15, 2024 12:47
--- NOTE | 2024-10-15 13:30 | DVHDS ---
DATE OF DISCHARGE: 10/15/2024 DATE OF TRANSFER: 10/15/2024. HISTORY OF PRESENT ILLNESS: The patient is an 78-year-old lady who was admitted with complaints of generalized weakness and a subsequent fall. The patient has history of hypertension. HOSPITAL COURSE: The patient had initial pelvic CT that was unremarkable. Head CT showed abnormality in the right upper parietal lobe. The patient subsequently had a brain MRI that showed moderate size acute or subacute infarct in the right parietal lobe as well as in the right occipital lobe and the midline cerebellum posteriorly. The patient had carotid Dopplers that showed 50-69% stenosis bilaterally. The patient had persistent vomiting with elevated liver function tests. She had gallbladder ultrasound that showed evidence of gallstones. A subsequent MRCP done, however, showed a narrowing of the common bile duct. There is suspicion for a pancreatic mass in the pancreatic head. The CA 19-9 has been elevated to 470. The patient's liver function tests remain elevated. As per my discussion with Dr. Howard, the patient is to be transferred to higher level of care for further evaluation and management. Dr. Howard has talked to the doctors at [facility]. FINAL DIAGNOSES: Therefore, * Status post fall. * Sepsis with urinary tract infection. * Rheumatoid arthritis. * Hypertension. * History of coronary artery with stent. * Anemia. * Cholelithiasis. * Acute cerebrovascular accident. * Likely pancreatic mass with transaminitis. * Carotid stenosis. Time spent in discharge planning and review of plan with the patient's family and construction safety consultant and paperwork was 41 minutes. MD CHIARA Mon/NELL TID: [id number] RECEIPT: [id number]
[2024-10-15] MEDS: TPN PER PHARMACY IV NR (21:32)
[2024-10-16] VITALS (15 sets, daily range): BP systolic 129–169; BP diastolic 67–76; PULSE 69–94; RESP 15–20; TEMP 97.3–98.4; O2SAT 94–99
[2024-10-16 06:03] LABS: Anion Gap 9 (5-15); BUN/Creatinine Ratio 21.8 (10.0-20.0); Blood Urea Nitrogen 12 mg/dL (9-23); Carbon Dioxide 20 mmol/L (20-31); Phosphorus 2.9 mg/dL (2.4-5.1); Sodium 137 mmol/L (136-145); Total Protein 5.8 g/dL (5.7-8.2)
[2024-10-16 06:10] LABS: Hematocrit 32.2 % (36.0-46.0); Hemoglobin 10.8 g/dL (12.2-16.2); Mean Corpuscular Hgb Conc. 33.6 g/dL (32.0-36.0); Mean Corpuscular Volume 98.1 fL (80.0-100.0); Platelet Count (auto) 176 10^3/uL (140-450); Red Blood Cells 3.28 10^6/uL (4.0-5.20); Red Cell Distribution Width 15.5 % (11.8-14.3); White Blood Cell 6.9 10^3/uL (4.4-10.8)
[2024-10-16 06:34] LABS: Basophils % (manual) 0 (0.0-2.0); Metamyelocytes % 0
[2024-10-16 06:35] LABS: Blast Cells 0; Myelocytes % 0; Promyelocytes % 0; Reactive Lymphocytes 0
[2024-10-16 06:48] LABS: Alanine Aminotransferase 110 U/L (7-40); Albumin 3.1 g/dL (3.2-4.8); Alkaline Phosphatase 1106 U/L (46-116); Aspartate Aminotransferase 134 U/L (13-40); Bilirubin, Total 1.7 mg/dL (0.2-1.0); Chloride 108 mmol/L (98-107); Glucose 128 mg/dL (74-106); Potassium 3.4 mmol/L (3.5-5.1)
[2024-10-16 08:01] LABS: Band Neutrophils % (manual) 3; Eosinophils % (manual) 1 (0-7); Lymphocytes % (manual) 28 (10.0-50.0); Monocytes % (manual) 13 (0-12)
[2024-10-16 08:02] LABS: Platelet Estimate Adequate
--- NOTE | 2024-10-16 10:17 | CONS ---
Pharmacy Clinical Information: Elevated liver enzymes --> consider d/c atorvastatin and APAP STEVEN COOPER PHARMACIST Oct 16, 2024 10:17
--- NOTE | 2024-10-16 11:11 | DVHPN2 ---
Progress Note Date Seen: Oct 16, 2024 Medical Necessity Reason Pt with a Central, PICC or Fol: No Subjective Patient reports: No new complaints Review of Systems: HEENT:Normal, CVS:Normal, RESPIRATORY:Normal, GI:Normal, :Normal, MSK:Normal, NEURO:Normal Objective vital signs Vital Sign Date Time Temp Pulse Resp B/P (MAP) Pulse Ox O2 Delivery O2 Flow Rate FiO2 10/16/24 09:04 150/82 10/16/24 09:04 85 10/16/24 09:00 98.1 18 97 98.1 10/16/24 08:00 Room Air* 0 21 Total Intake and Output 10/15/24 10/15/24 10/16/24 15:00 23:00 07:00 Intake Total 300 ml 2700 ml 650 ml Balance 300 ml 2700 ml 650 ml medications Current Medications Medications Dose Ordered Sig/Keven Route Start Time Stop Time Status Last Admin Dose Admin Acetaminophen/ Hydrocodone Bitart 1 tab Q4HP PRN PO 10/07/24 19:00 Acetaminophen 650 mg Q6HP PRN PO 10/07/24 19:00 10/15/24 20:12 650 MG Ceftriaxone Sodium 50 ml @ 100 mls/hr DAILY@09 IV 10/08/24 09:00 10/16/24 08:56 100 MLS/HR Metoprolol Succinate 25 mg DAILY PO 10/09/24 10:00 10/16/24 09:04 25 MG Folic Acid 1 mg DAILY PO 10/09/24 10:00 10/16/24 09:03 1 MG Hydroxychloroquine Sulfate 200 mg DAILY PO 10/09/24 10:00 10/16/24 09:03 200 MG Losartan Potassium 25 mg DAILY PO 10/09/24 10:00 10/16/24 09:04 25 MG Pantoprazole Sodium 40 mg DAILY@0630 IV 10/11/24 06:30 10/16/24 05:41 40 MG Atorvastatin Calcium 40 mg HS PO 10/10/24 22:00 10/15/24 21:33 40 MG Clonidine HCl 0.1 mg Q6HP PRN PO 10/11/24 09:15 10/14/24 01:11 0.1 MG Aspirin 81 mg DAILY PO 10/11/24 10:00 10/16/24 09:03 81 MG Metoclopramide HCl 10 mg Q8HPRN PRN IV 10/11/24 09:15 10/12/24 22:13 10 MG Enteral Nutritional Formula 240 ml BIDWM PO 10/11/24 18:00 10/16/24 08:00 240 ML Metronidazole 100 ml @ 100 mls/hr Q8H IV 10/11/24 17:00 10/16/24 10:36 100 MLS/HR Diagnostic Test (Pha) 1 strip Q6HR 10/12/24 00:00 10/16/24 05:47 1 STRIP Insulin Human Regular FOLLOW SLIDING SCALE Q6HR SC 10/12/24 00:00 10/15/24 17:10 2 UNITS Dextrose 50 ml UD IV 10/12/24 00:00 Sodium Chloride 10 ml QSHIFT@, IV 10/11/24 22:00 10/16/24 10:36 10 ML Enoxaparin Sodium 60 mg Q12HR SC 10/12/24 14:00 10/16/24 09:03 60 MG Ipratropium [place] 0.5 mg Q8HR NEB 10/12/24 22:00 10/16/24 05:52 0.5 MG Hydralazine HCl 10 mg Q6HP PRN IV 10/13/24 05:30 10/15/24 21:34 10 MG Fat Emulsion Intravenous 50 ml/ Sodium Acetate 40 meq/Sodium Phosphate 40 meq/ Potassium Acetate 40 meq/Magnesium Sulfate 16 meq/ Multivitamins 10 ml/Chromium/ Copper/Manganese/ Zinc 1 ml/Amino Acids/Dextrose/ Purified Water 1,115 ml @ 46 mls/hr [id number] IV 10/15/24 22:00 10/16/24 21:59 10/15/24 21:32 46 MLS/HR Fat Emulsion Intravenous 100 ml/Sodium Acetate 40 meq/Potassium Acetate 60 meq/ Potassium Phosphate 22 meq/ Magnesium Sulfate 16 meq/ Multivitamins 10 ml/Amino Acids/ Dextrose 1,069 ml @ 45 mls/hr [id number] IV 10/16/24 22:00 10/17/24 21:59 Examination: GENERAL:Normal, HEENT:Normal, NECK:Normal, LUNGS:Normal, CVS:Normal, ABDOMEN:Normal, MSK:Normal, SKIN:Normal, NEURO:Normal, :Normal laboratory and microbiology Laboratory Tests 10/16/24 05:13 Test 10/16/24 05:13 Range/Units Serum Glucose 128 H 74-106 mg/dL Microbiology Date/Time Source Procedure Growth Status 10/07/24 19:14 Blood Blood Culture - Final NO GROWTH AFTER 5 DAYS OF INCUBATION. Complete 10/07/24 10:51 Voided Urine Urine Culture - Final Complete Problem List/Assessment/Plan Problem List/Assessment/Plan #1 s/p fall #2 sepsis with uti: culture, iv rocephin #3 RA: hold mtx, plaquenil #4 htn #5 cad s/p stent #6 anemia #7 headache/vomiting: mri brain, #8 gallstones with ?cbd stones ? acute [place]: iv antibiotics, mrcp #9 acute cva: asa, echo #10 carotid stenosis: dw dr Howard #11 ?pancreatic mass/malignancy: ? mri with contrast #12 nutrition: wean off tpn- pt eating well #13 nose bleed: reduce lovenox long discussion with family regards reports advance care planning- full code- time spent 19 mins Plan discussed with: Patient, Spouse, Daughter My Orders My Orders Orders - ELÍAS CYR MD Procedure Category Date Status Time Discharge DISCHARGE 10/15/24 Transmitted 12:45 * [employer] CONS 10/15/24 Transmitted Consult Enoxaparin Sodium PHA 10/17/24 Verified (Lovenox) 10:00 Potassium Effervesent PHA 10/16/24 Verified Tab (Klor-Con/Ef) 11:15 Complete Blood Count LAB 10/17/24 Verified 06:00 Comprehensive LAB 10/17/24 Verified Metabolic Panel 06:00 Dietary Evaluation Review Comments: Monitor PO intake to meet 75% of her needs Expected Outcomes/Goals: maintain weight Date of Service: Oct 16, 2024 Billing Provider: ELÍAS CYR MD Common Visit Codes: [id number] INP/OBS CARE(HIGH) ELÍAS CYR MD Oct 16, 2024 11:11
[2024-10-16] MEDS: POTASSIUM EFFERVESENT TAB 25 MEQ PO ONE (11:51)
[2024-10-16] MEDS: guaiFENesin-DM 100/10mg/5ml SYR PO PRN (17:03)
[2024-10-16] MEDS ORDERED: TPN PER PHARMACY IV NR (22:00)
[2024-10-17] VITALS (15 sets, daily range): BP systolic 124–155; BP diastolic 64–80; PULSE 68–90; RESP 13–18; TEMP 97.3–98.3; O2SAT 64–100
[2024-10-17 06:18] LABS: Basophils # (auto) 0 10 ^3/uL (0-0.2); Basophils % (auto) 0.5 % (0.0-2.0); Eosinophils # (auto) 0 10 ^3/uL (0-0.8); Eosinophils % (auto) 0.3 % (0.0-7.0); Hematocrit 30.9 % (36.0-46.0); Hemoglobin 10.4 g/dL (12.2-16.2); Lymphocytes # (auto) 1.6 10 ^3/uL (0.4-5.4); Mean Corpuscular Hemoglobin 32.6 pg (28.0-32.0); Mean Corpuscular Hgb Conc. 33.5 g/dL (32.0-36.0); Mean Corpuscular Volume 97.4 fL (80.0-100.0); Monocytes # (auto) 1.2 10 ^3/uL (0-1.3); Monocytes % (auto) 16.2 % (0.0-12.0); Neutrophils # (auto) 4.5 10 ^3/uL (1.6-8.6); Nucleated Red Blood Cells % 0.2 %; Platelet Count (auto) 150 10^3/uL (140-450); Red Blood Cells 3.18 10^6/uL (4.0-5.20); Red Cell Distribution Width 15.7 % (11.8-14.3); White Blood Cell 7.3 10^3/uL (4.4-10.8)
[2024-10-17 06:29] LABS: Anion Gap 8 (5-15); BUN/Creatinine Ratio 33.3 (10.0-20.0); Blood Urea Nitrogen 13 mg/dL (9-23); Calcium 8.9 mg/dL (8.7-10.4); Carbon Dioxide 21 mmol/L (20-31); Chloride 105 mmol/L (98-107); Glucose 94 mg/dL (74-106); Potassium 3.7 mmol/L (3.5-5.1)
[2024-10-17 06:33] LABS: Alanine Aminotransferase 99 U/L (7-40); Aspartate Aminotransferase 147 U/L (13-40); Bilirubin, Total 1.9 mg/dL (0.2-1.0); Sodium 134 mmol/L (136-145); Total Protein 5.7 g/dL (5.7-8.2)
[2024-10-17 07:06] LABS: Alkaline Phosphatase 1246 U/L (46-116)
[2024-10-17] MEDS: ENOXAPARIN SOD 40 MG/0.4 ML SYRINGE SC SCH (09:39)
--- NOTE | 2024-10-17 11:27 | DVHPN2 ---
Progress Note - Dictate Date Seen: Oct 16, 2024 Medical Necessity Reason Pt with a Central, PICC or Fol: No Subjective PT WITH LETHARGY WEAKNESS HAD A FALL BECAUSE OF WEAKNESS SEEN IN CLINIC ABOUT 5 DAYS AGO FOR SAME IV FLUID WITH MVI WAS GIVEN WITH ABX AND STEROIDS NOW WITH LEUKOCYTOSIS CT OF HEAD WITH POSSIBLE MASS PMH HTN LABILE vital signs Vital Sign Date Time Temp Pulse Resp B/P (MAP) Pulse Ox O2 Delivery O2 Flow Rate FiO2 10/17/24 09:38 150/71 10/17/24 09:38 75 10/17/24 08:52 98.2 18 95 98.2 10/17/24 07:12 Room Air* 0 21 Total Intake and Output 10/16/24 10/16/24 10/17/24 15:00 23:00 07:00 Intake Total 660 ml 1500 ml 1255 ml Balance 660 ml 1500 ml 1255 ml medications Current Medications Medications Dose Ordered Sig/Keven Route Start Time Stop Time Status Last Admin Dose Admin Acetaminophen 650 mg Q6HP PRN PO 10/07/24 19:00 10/17/24 09:37 650 MG Ceftriaxone Sodium 50 ml @ 100 mls/hr DAILY@09 IV 10/08/24 09:00 10/17/24 09:39 100 MLS/HR Metoprolol Succinate 25 mg DAILY PO 10/09/24 10:00 10/17/24 09:38 25 MG Folic Acid 1 mg DAILY PO 10/09/24 10:00 10/17/24 09:37 1 MG Hydroxychloroquine Sulfate 200 mg DAILY PO 10/09/24 10:00 10/17/24 09:37 200 MG Losartan Potassium 25 mg DAILY PO 10/09/24 10:00 10/17/24 09:38 25 MG Pantoprazole Sodium 40 mg DAILY@0630 IV 10/11/24 06:30 10/17/24 06:20 40 MG Atorvastatin Calcium 40 mg HS PO 10/10/24 22:00 10/17/24 00:01 40 MG Clonidine HCl 0.1 mg Q6HP PRN PO 10/11/24 09:15 10/14/24 01:11 0.1 MG Aspirin 81 mg DAILY PO 10/11/24 10:00 10/17/24 09:37 81 MG Metoclopramide HCl 10 mg Q8HPRN PRN IV 10/11/24 09:15 10/12/24 22:13 10 MG Enteral Nutritional Formula 240 ml BIDWM PO 10/11/24 18:00 10/17/24 08:00 240 ML Metronidazole 100 ml @ 100 mls/hr Q8H IV 10/11/24 17:00 10/17/24 00:01 100 MLS/HR Diagnostic Test (Pha) 1 strip Q6HR 10/12/24 00:00 10/17/24 06:20 1 STRIP Insulin Human Regular FOLLOW SLIDING SCALE Q6HR SC 10/12/24 00:00 10/16/24 17:20 2 UNITS Dextrose 50 ml UD IV 10/12/24 00:00 Sodium Chloride 10 ml QSHIFT@10,22 IV 10/11/24 22:00 10/17/24 00:02 10 ML Ipratropium [place] 0.5 mg Q8HR NEB 10/12/24 22:00 10/17/24 07:12 0.5 MG Hydralazine HCl 10 mg Q6HP PRN IV 10/13/24 05:30 10/16/24 17:04 10 MG Enoxaparin Sodium 40 mg DAILY SC 10/17/24 10:00 10/17/24 09:39 40 MG Guaifenesin/ Dextromethorphan 10 ml Q6HPRN PRN PO 10/16/24 16:30 10/17/24 00:20 10 ML laboratory and microbiology Laboratory Tests 10/17/24 05:29 Test 10/17/24 05:29 Range/Units Serum Glucose 94 74-106 mg/dL Problem List LETHARGY WEAKNESS HAD A FALL BECAUSE OF WEAKNESS SEEN IN CLINIC ABOUT 5 DAYS AGO FOR SAME IV FLUID WITH MVI WAS GIVEN WITH ABX AND STEROIDS NOW WITH LEUKOCYTOSIS CT OF HEAD WITH POSSIBLE MASS PMH HTN LABILE Assessment/Plan MRI/MRA OF BRAIN ABX STEROIDS IV FLUID TACHYCARDIA MRI WITH AND WITHOUT CONTRAST CONSISTENT WITH SUBACUTE CVA PHYSICAL THERAPY STILL WITH HEADACHE CAROTID DOPPLER C/W BILATERAL 70% ICA STENOSIS CAROTID ANGIO OUTPATIENT DAPT MRCP 1. Focal severe narrowing of the common bile duct at the level of the pancreatic head. Findings are suspicious for pancreatic mass causing obstruction, with dilation of the common bile duct proximal to the level of the pancreatic head and dilated pancreatic duct also noted. Stricture would be less likely. Correlate with clinical findings. Pancreatic protocol MRI without and with contrast recommended. 2. Distended gallbladder. Gallstones visualized at the gallbladder neck and cystic duct. 3. Multiple small cysts are seen along the course of the dilated pancreatic duct. LFT ELEVATED MAY REQUIRE COMMON DUCT STENTING TRANSFER TO [facility] IN AM Dietary Evaluation Review Comments: Monitor PO intake to meet 75% of her needs Expected Outcomes/Goals: maintain weight Plan discussed with: Patient, Spouse, Daughter, Son JOSE ANGEL HALE MD Oct 17, 2024 11:27
--- NOTE | 2024-10-17 11:35 | DVHPN2 ---
Progress Note Date Seen: Oct 17, 2024 Medical Necessity Reason Pt with a Central, PICC or Fol: No Subjective Patient reports: No new complaints Review of Systems: HEENT:Normal, CVS:Normal, RESPIRATORY:Normal, GI:Normal, :Normal, MSK:Normal, NEURO:Normal Objective vital signs Vital Sign Date Time Temp Pulse Resp B/P (MAP) Pulse Ox O2 Delivery O2 Flow Rate FiO2 10/17/24 09:38 150/71 10/17/24 09:38 75 10/17/24 08:52 98.2 18 95 98.2 10/17/24 07:12 Room Air* 0 21 Total Intake and Output 10/16/24 10/16/24 10/17/24 15:00 23:00 07:00 Intake Total 660 ml 1500 ml 1255 ml Balance 660 ml 1500 ml 1255 ml medications Current Medications Medications Dose Ordered Sig/Keven Route Start Time Stop Time Status Last Admin Dose Admin Acetaminophen 650 mg Q6HP PRN PO 10/07/24 19:00 10/17/24 09:37 650 MG Ceftriaxone Sodium 50 ml @ 100 mls/hr DAILY@09 IV 10/08/24 09:00 10/17/24 09:39 100 MLS/HR Metoprolol Succinate 25 mg DAILY PO 10/09/24 10:00 10/17/24 09:38 25 MG Folic Acid 1 mg DAILY PO 10/09/24 10:00 10/17/24 09:37 1 MG Hydroxychloroquine Sulfate 200 mg DAILY PO 10/09/24 10:00 10/17/24 09:37 200 MG Losartan Potassium 25 mg DAILY PO 10/09/24 10:00 10/17/24 09:38 25 MG Pantoprazole Sodium 40 mg DAILY@0630 IV 10/11/24 06:30 10/17/24 06:20 40 MG Atorvastatin Calcium 40 mg HS PO 10/10/24 22:00 10/17/24 00:01 40 MG Clonidine HCl 0.1 mg Q6HP PRN PO 10/11/24 09:15 10/14/24 01:11 0.1 MG Aspirin 81 mg DAILY PO 10/11/24 10:00 10/17/24 09:37 81 MG Metoclopramide HCl 10 mg Q8HPRN PRN IV 10/11/24 09:15 10/12/24 22:13 10 MG Enteral Nutritional Formula 240 ml BIDWM PO 10/11/24 18:00 10/17/24 08:00 240 ML Metronidazole 100 ml @ 100 mls/hr Q8H IV 10/11/24 17:00 10/17/24 00:01 100 MLS/HR Diagnostic Test (Pha) 1 strip Q6HR 10/12/24 00:00 10/17/24 06:20 1 STRIP Insulin Human Regular FOLLOW SLIDING SCALE Q6HR SC 10/12/24 00:00 10/16/24 17:20 2 UNITS Dextrose 50 ml UD IV 10/12/24 00:00 Sodium Chloride 10 ml QSHIFT@10,22 IV 10/11/24 22:00 10/17/24 00:02 10 ML Ipratropium [place] 0.5 mg Q8HR NEB 10/12/24 22:00 10/17/24 07:12 0.5 MG Hydralazine HCl 10 mg Q6HP PRN IV 10/13/24 05:30 10/16/24 17:04 10 MG Enoxaparin Sodium 40 mg DAILY SC 10/17/24 10:00 10/17/24 09:39 40 MG Guaifenesin/ Dextromethorphan 10 ml Q6HPRN PRN PO 10/16/24 16:30 10/17/24 00:20 10 ML Examination: GENERAL:Normal, HEENT:Normal, NECK:Normal, LUNGS:Normal, CVS:Normal, ABDOMEN:Normal, MSK:Normal, SKIN:Normal, NEURO:Normal, :Normal laboratory and microbiology Laboratory Tests 10/17/24 05:29 Test 10/17/24 05:29 Range/Units Serum Glucose 94 74-106 mg/dL Microbiology Date/Time Source Procedure Growth Status 10/07/24 19:14 Blood Blood Culture - Final NO GROWTH AFTER 5 DAYS OF INCUBATION. Complete 10/07/24 10:51 Voided Urine Urine Culture - Final Complete Problem List/Assessment/Plan Problem List/Assessment/Plan #1 s/p fall #2 sepsis with uti: culture, iv rocephin #3 RA: hold mtx, plaquenil #4 htn #5 cad s/p stent #6 anemia #7 headache/vomiting: mri brain, #8 gallstones with ?cbd stones ? acute [place]: iv antibiotics, #9 acute cva: asa, echo #10 carotid stenosis: dw dr Howard #11 ?pancreatic mass/malignancy: ? mri with contrast #12 nutrition: wean off tpn- pt eating well #13 nose bleed: reduce lovenox long discussion with family regards reports await transfer to higher level of care advance care planning- full code- time spent 19 mins Plan discussed with: Patient, Daughter My Orders My Orders Orders - ELÍAS CYR MD Procedure Category Date Status Time Guaifenesin-Dextromet PHA 10/16/24 In Process Liquid (Robitussin 16:30 Dietary Evaluation Review Comments: Monitor PO intake to meet 75% of her needs Expected Outcomes/Goals: maintain weight Date of Service: Oct 17, 2024 Billing Provider: ELÍAS CYR MD Common Visit Codes: [id number] INP/OBS CARE(HIGH) ELÍAS CYR MD Oct 17, 2024 11:35
--- NOTE | 2024-10-17 11:44 | DVHPN2 ---
Progress Note - Dictate Date Seen: Oct 17, 2024 Medical Necessity Reason Pt with a Central, PICC or Fol: No Subjective PT WITH LETHARGY WEAKNESS HAD A FALL BECAUSE OF WEAKNESS SEEN IN CLINIC ABOUT 5 DAYS AGO FOR SAME IV FLUID WITH MVI WAS GIVEN WITH ABX AND STEROIDS NOW WITH LEUKOCYTOSIS CT OF HEAD WITH POSSIBLE MASS PMH HTN LABILE vital signs Vital Sign Date Time Temp Pulse Resp B/P (MAP) Pulse Ox O2 Delivery O2 Flow Rate FiO2 10/17/24 09:38 150/71 10/17/24 09:38 75 10/17/24 08:52 98.2 18 95 98.2 10/17/24 07:12 Room Air* 0 21 Total Intake and Output 10/16/24 10/16/24 10/17/24 15:00 23:00 07:00 Intake Total 660 ml 1500 ml 1255 ml Balance 660 ml 1500 ml 1255 ml medications Current Medications Medications Dose Ordered Sig/Keven Route Start Time Stop Time Status Last Admin Dose Admin Acetaminophen 650 mg Q6HP PRN PO 10/07/24 19:00 10/17/24 09:37 650 MG Ceftriaxone Sodium 50 ml @ 100 mls/hr DAILY@09 IV 10/08/24 09:00 10/17/24 09:39 100 MLS/HR Metoprolol Succinate 25 mg DAILY PO 10/09/24 10:00 10/17/24 09:38 25 MG Folic Acid 1 mg DAILY PO 10/09/24 10:00 10/17/24 09:37 1 MG Hydroxychloroquine Sulfate 200 mg DAILY PO 10/09/24 10:00 10/17/24 09:37 200 MG Losartan Potassium 25 mg DAILY PO 10/09/24 10:00 10/17/24 09:38 25 MG Pantoprazole Sodium 40 mg DAILY@0630 IV 10/11/24 06:30 10/17/24 06:20 40 MG Atorvastatin Calcium 40 mg HS PO 10/10/24 22:00 10/17/24 00:01 40 MG Clonidine HCl 0.1 mg Q6HP PRN PO 10/11/24 09:15 10/14/24 01:11 0.1 MG Aspirin 81 mg DAILY PO 10/11/24 10:00 10/17/24 09:37 81 MG Metoclopramide HCl 10 mg Q8HPRN PRN IV 10/11/24 09:15 10/12/24 22:13 10 MG Enteral Nutritional Formula 240 ml BIDWM PO 10/11/24 18:00 10/17/24 08:00 240 ML Metronidazole 100 ml @ 100 mls/hr Q8H IV 10/11/24 17:00 10/17/24 11:38 100 MLS/HR Diagnostic Test (Pha) 1 strip Q6HR 10/12/24 00:00 10/17/24 06:20 1 STRIP Insulin Human Regular FOLLOW SLIDING SCALE Q6HR SC 10/12/24 00:00 10/16/24 17:20 2 UNITS Dextrose 50 ml UD IV 10/12/24 00:00 Sodium Chloride 10 ml QSHIFT@10,22 IV 10/11/24 22:00 10/17/24 10:00 10 ML Ipratropium [place] 0.5 mg Q8HR NEB 10/12/24 22:00 10/17/24 07:12 0.5 MG Hydralazine HCl 10 mg Q6HP PRN IV 10/13/24 05:30 10/16/24 17:04 10 MG Enoxaparin Sodium 40 mg DAILY SC 10/17/24 10:00 10/17/24 09:39 40 MG Guaifenesin/ Dextromethorphan 10 ml Q6HPRN PRN PO 10/16/24 16:30 10/17/24 00:20 10 ML laboratory and microbiology Laboratory Tests 10/17/24 05:29 Test 10/17/24 05:29 Range/Units Serum Glucose 94 74-106 mg/dL Problem List LETHARGY WEAKNESS HAD A FALL BECAUSE OF WEAKNESS SEEN IN CLINIC ABOUT 5 DAYS AGO FOR SAME IV FLUID WITH MVI WAS GIVEN WITH ABX AND STEROIDS NOW WITH LEUKOCYTOSIS CT OF HEAD WITH POSSIBLE MASS PMH HTN LABILE Assessment/Plan MRI/MRA OF BRAIN ABX STEROIDS IV FLUID TACHYCARDIA MRI WITH AND WITHOUT CONTRAST CONSISTENT WITH SUBACUTE CVA PHYSICAL THERAPY STILL WITH HEADACHE CAROTID DOPPLER C/W BILATERAL 70% ICA STENOSIS CAROTID ANGIO OUTPATIENT DAPT MRCP 1. Focal severe narrowing of the common bile duct at the level of the pancreatic head. Findings are suspicious for pancreatic mass causing obstruction, with dilation of the common bile duct proximal to the level of the pancreatic head and dilated pancreatic duct also noted. Stricture would be less likely. Correlate with clinical findings. Pancreatic protocol MRI without and with contrast recommended. 2. Distended gallbladder. Gallstones visualized at the gallbladder neck and cystic duct. 3. Multiple small cysts are seen along the course of the dilated pancreatic duct. LFT ELEVATED MAY REQUIRE COMMON DUCT STENTING TRANSFER TO [facility] IN AM Dietary Evaluation Review Comments: Monitor PO intake to meet 75% of her needs Expected Outcomes/Goals: maintain weight Plan discussed with: Patient, Spouse JOSE ANGEL HALE MD Oct 17, 2024 11:44
--- NOTE | 2024-10-17 13:12 | DVHINCON2 ---
Date of service: Oct 17, [address] Garcia Reason for Consultation Elevated liver enzymes and suspected mass at the head of the pancreas History of Present Illness Patient is an 78-year-old lady who was admitted after a fall. She was diagnosed with subacute right parietal lobe infarct. Patient developed recurrent persistent nausea vomiting. Her liver enzymes were elevated. She underwent imaging studies that showed cholelithiasis but she also had evidence on MRCP of a narrowed segment of the distal CBD at the head of the pancreas suspicious for a pancreatic head mass. I was asked to evaluate her for the same. Patient is able to eat and does not appear to have any localizing neurological deficit at this time. Patient's liver enzymes are trending upwards and her alkaline phosp hatase was over 1000 Past Medical History Hypertension SLE Migraine headaches Past Surgical History Appendectomy Low back surgery Cataract surgery Family History: Patient reports no known family medical history. Allergies: Coded Allergies: Ciprofloxacin (Verified Allergy, Unknown, 02/21/18) Iodine (Verified Allergy, Unknown, 06/23/17) Simvastatin (Verified Allergy, Unknown, 10/10/24) BONE PAIN Sulfa Antibiotics (Verified Allergy, Unknown, 06/23/17) Home Meds Reported Medications Magnesium Chloride (Slow-Mag) Tab, 1 OR, TAB 10/08/24 Linseed Oil (Flax Seed Oil) 1,000 Mg Cap, 1000 MG PO, CAP 10/08/24 Cholecalciferol (VITAMIN D3) 2,000 Unit Tab, 1 TAB PO DAILY, #30 TAB 5 Refills 10/08/24 Folic Svkm-Ljismvpdnf-Ibjetcdh (Folbic) Tab, 1 TAB PO DAILY, #90 TAB 1 Refill 10/08/24 Ibuprofen Micronized (MOTRIN TABLET) 600 Mg Tb, 600 MG PO TID, #40 TAB *Black box warning-NSAIDS can increase risk of CT & hypertension, GI irritation, ulceration, bleed, perferation. Do not use post cardiac surgery. Use short duration/lowest effective dose. 10/08/24 Metoprolol Succinate (Metoprolol Succinate Er) 25 Mg Tab, 1 TAB PO DAILY, #30 TAB 5 Refills 10/08/24 Potassium Chloride (POTASSIUM CHLORIDE CR) 10 Meq Tb, 1 TAB PO DAILY, #30 TAB 5 Refills 10/08/24 Hydroxychloroquine Sulfate (PLAQUENIL) 200 Mg Tab, 1 TAB PO DAILY, #180 TAB 3 Refills 10/08/24 Methotrexate (Methotrexate) 2.5 Mg Tab, 8 TAB PO QWEEKLY, #32 TAB 2 Refills 10/08/24 Current Medications Current Medications Medications (Trade) Dose Ordered Sig/Keven Route PRN Reason Start Time Stop Time Status Last Admin Fat Emulsion Intravenous 100 ml/Sodium Acetate 40 meq/Potassium Acetate 60 meq/ Potassium Phosphate 22 meq/ Magnesium Sulfate 16 meq/ Multivitamins 10 ml/Amino Acids/ Dextrose 1,069 ml @ 45 mls/hr [id number] IV 10/16/24 22:00 10/16/24 11:10 DC Enoxaparin Sodium (Lovenox) 40 mg DAILY SC 10/17/24 10:00 10/17/24 09:39 Guaifenesin/ Dextromethorphan (Robitussin-Dm Liquid) 10 ml Q6HPRN PRN PO FOR COUGH 10/16/24 16:30 10/17/24 00:20 Vital Signs Vital Signs Date Time Temp Pulse Resp B/P (MAP) Pulse Ox O2 Delivery O2 Flow Rate FiO2 10/17/24 12:35 97.3 77 16 124/64 (84) 94 97.3 10/17/24 10:00 Room Air* 0 21 Physical Exam General Appearance: Alert, Oriented X3, Cooperative, No acute distress HEENT: Atraumatic, PERRLA, EOMI, Mucous membr. moist/pink Neck: Supple Lungs: Clear to auscultation, Normal air movement Cardiovascular: Regular rate, Normal S1, Normal S2, No murmurs, Gallops Abdomen: Normal bowel sounds, Soft, No tenderness Neuro: Cranial nerves 3-12 NL Psych/Mental Status: Mental status NL Labs/Diagnostic Data Labs Test 10/17/24 05:29 10/17/24 00:04 10/16/24 05:13 10/12/24 06:17 Range/Units White Blood Count 7.3 4.4-10.8 10^3/uL Red Blood Count 3.18 L 4.0-5.20 10^6/uL Hemoglobin 10.4 L 12.2-16.2 g/dL Hematocrit 30.9 L 36.0-46.0 % Mean Corpuscular Volume 97.4 80.0-100.0 fL Mean Corpuscular Hemoglobin 32.6 H 28.0-32.0 pg Mean Corpuscular Hemoglobin Concent 33.5 32.0-36.0 g/dL Red Cell Distribution Width 15.7 H 11.8-14.3 % Platelet Count 150 140-450 10^3/uL Mean Platelet Volume 9.6 6.9-10.8 fL Neutrophils (%) (Auto) 61.0 37.0-80.0 % Lymphocytes (%) (Auto) 22.0 10.0-50.0 % Monocytes (%) (Auto) 16.2 H 0.0-12.0 % Eosinophils (%) (Auto) 0.3 0.0-7.0 % Basophils (%) (Auto) 0.5 0.0-2.0 % Neutrophils # (Auto) 4.5 1.6-8.6 10 ^3/uL Lymphocytes # (Auto) 1.6 0.4-5.4 10 ^3/uL Monocytes # (Auto) 1.2 0-1.3 10 ^3/uL Eosinophils # (Auto) 0 0-0.8 10 ^3/uL Basophils # (Auto) 0 0-0.2 10 ^3/uL Nucleated Red Blood Cells 0.2 % Sodium Level 134 L 136-145 mmol/L Potassium Level 3.7 3.5-5.1 mmol/L Chloride Level 105 98-107 mmol/L Carbon Dioxide Level 21 20-31 mmol/L Anion Gap 8 5-15 Blood Urea Nitrogen 13 9-23 mg/dL Creatinine 0.39 L 0.550-1.02 mg/dL Glomerular Filtration Rate Calc 101 >90 mL/min BUN/Creatinine Ratio 33.3 H 10.0-20.0 Serum Glucose 94 74-106 mg/dL Calcium Level 8.9 8.7-10.4 mg/dL Total Bilirubin 1.9 H 0.2-1.0 mg/dL Aspartate Amino Transferase (AST) 147 H 13-40 U/L Alanine Aminotransferase (ALT) 99 H 7-40 U/L Alkaline Phosphatase 1246 H 46-116 U/L Total Protein 5.7 5.7-8.2 g/dL Albumin 3.0 L 3.2-4.8 g/dL POC Glucose 111 H 70-106 mg/dl Differential Total Cells Counted 100.0 100 Neutrophils % (Manual) 55 37.0-80.0 Band Neutrophils % (Manual) 3 Lymphocytes % (Manual) 28 10.0-50.0 Monocytes % (Manual) 13 H 0-12 Eosinophils % (Manual) 1 0-7 Basophils % (Manual) 0 0.0-2.0 Metamyelocytes % (manual) 0 Myelocytes % (Manual) 0 Promyelocytes % (Manual) 0 Blast Cells % (Manual) 0 Reactive Lymphocytes 0 Platelet Estimate Adequate Phosphorus Level 2.9 2.4-5.1 mg/dL Magnesium Level 2.0 1.6-2.6 mg/dL Prothrombin Time 11.3 9.3-11.8 sec Prothrombin Time INR 1.07 0.9-1.15 Activated Partial Thromboplast Time 24.8 24.5-34.5 SEC Triglycerides Level 68 < 150 mg/dL Amylase Level 38 30-118 U/L Lipase 46 12-53 U/L CA 19-9 Antigen 470 H 0-35 U/mL Test 10/09/24 05:46 10/07/24 19:14 10/07/24 17:08 Range/Units Thyroid Stimulating Hormone (TSH) 2.06 0.55-4.78 uIU/mL Lactic Acid Level 1.0 0.4-2.0 mmol/L Urine Color Yellow Yellow Urine Clarity Turbid H Clear Urine pH 6.0 5.0-9.0 Urine Specific [place] 1.014 1.001-1.035 Urine Protein Trace H Negative Urine Ketones Negative Negative Urine Blood Negative Negative /uL Urine Nitrite Negative Negative Urine Bilirubin Negative Negative Urine Urobilinogen 2 H Negative mg/dL Urine Leukocyte Esterase Trace Negative /uL Urine RBC 9 0 - 4 /hpf Urine WBC 13 0 - 5 /hpf Urine Squamous Epithelial Cells Few <5 /hpf Urine Bacteria Few H None Seen /hpf Urine Mucus Few None Seen Urine Glucose Normal Normal mg/dL Microbiology Date/Time Source Procedure Growth Status 10/07/24 19:14 Blood Blood Culture - Final NO GROWTH AFTER 5 DAYS OF INCUBATION. Complete 10/07/24 10:51 Voided Urine Urine Culture - Final Complete MRCP IMPRESSION: 1. Focal severe narrowing of the common bile duct at the level of the pancreatic head. Findings are suspicious for pancreatic mass causing obstruction, with dilation of the common bile duct proximal to the level of the pancreatic head and dilated pancreatic duct also noted. Stricture would be less likely. Correlate with clinical findings. Pancreatic protocol MRI without and with contrast recommended. 2. Distended gallbladder. Gallstones visualized at the gallbladder neck and cystic duct. 3. Multiple small cysts are seen along the course of the dilated pancreatic duct. 4. Additional findings as detailed above. LIVER USG IMPRESSION: 1. Cholelithiasis, and gallbladder sludge without evidence of acute cholecystitis. 2. Dilated CBD suggestive of a distal obstructing process such as choledochol ithiasis. Recommend correlation with bilirubin if indicated further evaluation with MRCP or ERCP. 3. Hepatic steatosis. 4. A 1.5 cm simple appearing right renal cyst. Problems(with codes): (1) Nausea and vomiting (2) Elevated liver enzymes (3) Abnormal finding on GI tract imaging (4) Cholelithiasis (5) Right sided cerebral infarction (6) Pancreatic cyst (7) Elevated alkaline phosphatase level Plan/Recommendation Plan Continue supportive care Patient is on IV antibiotics nutritional supplements Check CA 19-9 Patient will need referral to higher level of care for ERCP, possible stent p lacement possible endoscopic ultrasound These services are currently not available at our institution Thank you for allowing me to participate in the care of this patient Plan discussed with: Patient, Other (Dr Garcia) JOCE CUETO MD Oct 17, 2024 13:12
[2024-10-18] VITALS (16 sets, daily range): BP systolic 140–156; BP diastolic 67–82; PULSE 77–96; RESP 15–96; TEMP 97.5–98.2; O2SAT 93–100
[2024-10-18 11:49] LABS: Basophils # (auto) 0 10 ^3/uL (0-0.2); Basophils % (auto) 0.2 % (0.0-2.0); Eosinophils # (auto) 0 10 ^3/uL (0-0.8); Eosinophils % (auto) 0.1 % (0.0-7.0); Hematocrit 29.6 % (36.0-46.0); Lymphocytes # (auto) 1.1 10 ^3/uL (0.4-5.4); Lymphocytes % (auto) 11.3 % (10.0-50.0); Mean Corpuscular Hemoglobin 32.8 pg (28.0-32.0); Mean Corpuscular Hgb Conc. 33.7 g/dL (32.0-36.0); Mean Corpuscular Volume 97.5 fL (80.0-100.0); Monocytes % (auto) 9.7 % (0.0-12.0); Neutrophils # (auto) 7.9 10 ^3/uL (1.6-8.6); Neutrophils % (auto) 78.7 % (37.0-80.0); Platelet Count (auto) 175 10^3/uL (140-450); Red Blood Cells 3.03 10^6/uL (4.0-5.20); Red Cell Distribution Width 15.6 % (11.8-14.3); White Blood Cell 10.1 10^3/uL (4.4-10.8)
[2024-10-18 11:58] LABS: Anion Gap 7 (5-15); BUN/Creatinine Ratio 19.6 (10.0-20.0); Blood Urea Nitrogen 11 mg/dL (9-23); Calcium 8.9 mg/dL (8.7-10.4); Chloride 104 mmol/L (98-107); Potassium 4.3 mmol/L (3.5-5.1); Total Protein 5.9 g/dL (5.7-8.2)
[2024-10-18 12:24] LABS: Alanine Aminotransferase 95 U/L (7-40); Albumin 3.1 g/dL (3.2-4.8); Alkaline Phosphatase 1347 U/L (46-116); Aspartate Aminotransferase 143 U/L (13-40); Bilirubin, Total 1.9 mg/dL (0.2-1.0); Carbon Dioxide 20 mmol/L (20-31); Glucose 136 mg/dL (74-106); Sodium 131 mmol/L (136-145)
--- NOTE | 2024-10-18 13:09 | DVHPN2 ---
Progress Note Date Seen: Oct 18, 2024 Resident Creating Document: KANDI DUBOIS RESIDENT Medical Necessity Reason Pt with a Central, PICC or Fol: No Medical Necessity Reason Elevated liver enzymes Subjective Review of Systems Patient is an 78-year-old lady who was admitted after a fall. She was diagnosed with subacute right parietal lobe infarct. Patient developed recurrent persistent nausea vomiting. Her liver enzymes were elevated. She underwent imaging studies that showed cholelithiasis but she also had evidence on MRCP of a narrowed segment of the distal CBD at the head of the pancreas suspicious for a pancreatic head mass. I was asked to evaluate her for the same. Patient is able to eat and does not appear to have any localizing neurological deficit at this time. Patient's liver enzymes are trending upwards and her alkaline phosphatase was over 1000. PN: 10/18/2023: Patient is seen and examined today. Lying in bed surrounded by family. She is not in any respiratory distress she has no new complaint only thing she mentioned was she feels sometimes feels like her throat to get food gets stuck in her chest she has a history of GERD. Lab today is not significantly different from yesterday were pretty much stable T bilirubin is 1.9, AST is 143 ALP is some 95 and ALP is 1347. Patient is currently waiting for transfer to a higher level of care for possibly stent in the area of stenosis in a coma biliary duct. Objective vital signs Vital Sign Date Time Temp Pulse Resp B/P (MAP) Pulse Ox O2 Delivery O2 Flow Rate FiO2 10/18/24 10:17 156/75 10/18/24 10:16 96 10/18/24 09:00 97.9 16 95 97.9 10/18/24 08:05 Room Air* 0 21 Total Intake and Output 10/17/24 10/17/24 10/18/24 15:00 23:00 07:00 Intake Total 150 ml 1200 ml 845 ml Output Total 700 ml Balance 150 ml 1200 ml 145 ml medications Current Medications Medications Dose Ordered Sig/Keven Route Start Time Stop Time Status Last Admin Dose Admin Acetaminophen 650 mg Q6HP PRN PO 10/07/24 19:00 10/17/24 21:06 650 MG Ceftriaxone Sodium 50 ml @ 100 mls/hr DAILY@09 IV 10/08/24 09:00 10/18/24 10:16 100 MLS/HR Metoprolol Succinate 25 mg DAILY PO 10/09/24 10:00 10/18/24 10:16 25 MG Folic Acid 1 mg DAILY PO 10/09/24 10:00 10/18/24 10:16 1 MG Hydroxychloroquine Sulfate 200 mg DAILY PO 10/09/24 10:00 10/18/24 10:16 200 MG Losartan Potassium 25 mg DAILY PO 10/09/24 10:00 10/18/24 10:17 25 MG Pantoprazole Sodium 40 mg DAILY@0630 IV 10/11/24 06:30 10/18/24 05:48 40 MG Atorvastatin Calcium 40 mg HS PO 10/10/24 22:00 10/17/24 21:05 40 MG Clonidine HCl 0.1 mg Q6HP PRN PO 10/11/24 09:15 10/14/24 01:11 0.1 MG Aspirin 81 mg DAILY PO 10/11/24 10:00 10/18/24 10:16 81 MG Metoclopramide HCl 10 mg Q8HPRN PRN IV 10/11/24 09:15 10/12/24 22:13 10 MG Enteral Nutritional Formula 240 ml BIDWM PO 10/11/24 18:00 10/18/24 08:00 240 ML Metronidazole 100 ml @ 100 mls/hr Q8H IV 10/11/24 17:00 10/18/24 12:03 100 MLS/HR Sodium Chloride 10 ml QSHIFT@10,22 IV 10/11/24 22:00 10/18/24 10:26 10 ML Ipratropium [place] 0.5 mg Q8HR NEB 10/12/24 22:00 10/18/24 06:17 0.5 MG Hydralazine HCl 10 mg Q6HP PRN IV 10/13/24 05:30 10/16/24 17:04 10 MG Enoxaparin Sodium 40 mg DAILY SC 10/17/24 10:00 10/18/24 10:16 40 MG Guaifenesin/ Dextromethorphan 10 ml Q6HPRN PRN PO 10/16/24 16:30 10/17/24 00:20 10 ML Examination General examination- Not in acute distress HEENT: PEERLA, no acute nasal discharge Chest: S1-S2 audible, rate and rhythm regular, no murmur Lung: CTAB, no wheeze or rhonchi Abdomen: Nondistend, BS+, nontenderness, no organomegaly Musculoskeletal: no acute joint swelling or tenderness Lower extremity: no leg edema Neurological: cranial nerves intact, no acute dysarthria or dysphagia Psychiatry-- Normal mood and affect Skin- no acute rash or purpura laboratory and microbiology Laboratory Tests 10/18/24 11:15 Test 10/18/24 11:15 Range/Units Serum Glucose 136 H 74-106 mg/dL Microbiology Date/Time Source Procedure Growth Status 10/07/24 19:14 Blood Blood Culture - Final NO GROWTH AFTER 5 DAYS OF INCUBATION. Complete 10/07/24 10:51 Voided Urine Urine Culture - Final Complete Problem List/Assessment/Plan Problem List/Assessment/Plan (1) Nausea and vomiting (2) Elevated liver enzymes (3) Abnormal finding on GI tract imaging (4) Cholelithiasis (5) Right sided cerebral infarction (6) Pancreatic cyst (7) Elevated alkaline phosphatase level (8) CA19-9: 470 H Plan/Recommendation Continue supportive care Patient is on IV antibiotics nutritional supplements [facility], possible stent placement possible endoscopic ultrasound These services are currently not available at our institution Goal of care discussed for more than 35 minute Case and plan discussed with Dr. Boothe Thank you for allowing us to participate in the care of this patient. Please call if you have any questions or concerns. Plan discussed with: Patient, Spouse, Daughter Dietary Evaluation Review Comments: Monitor PO intake to meet 75% of her needs Expected Outcomes/Goals: maintain weight KANDI DUBOIS RESIDENT Oct 18, 2024 13:09
--- NOTE | 2024-10-18 13:34 | DVHPN2 ---
Progress Note - Dictate Date Seen: Oct 15, 2024 Medical Necessity Reason Pt with a Central, PICC or Fol: No Subjective PT WITH LETHARGY WEAKNESS HAD A FALL BECAUSE OF WEAKNESS SEEN IN CLINIC ABOUT 5 DAYS AGO FOR SAME IV FLUID WITH MVI WAS GIVEN WITH ABX AND STEROIDS NOW WITH LEUKOCYTOSIS CT OF HEAD WITH POSSIBLE MASS PMH HTN LABILE vital signs Vital Sign Date Time Temp Pulse Resp B/P (MAP) Pulse Ox O2 Delivery O2 Flow Rate FiO2 10/18/24 10:17 156/75 10/18/24 10:16 96 10/18/24 09:00 97.9 16 95 97.9 10/18/24 08:05 Room Air* 0 21 Total Intake and Output 10/17/24 10/17/24 10/18/24 15:00 23:00 07:00 Intake Total 150 ml 1200 ml 845 ml Output Total 700 ml Balance 150 ml 1200 ml 145 ml medications Current Medications Medications Dose Ordered Sig/Keven Route Start Time Stop Time Status Last Admin Dose Admin Acetaminophen 650 mg Q6HP PRN PO 10/07/24 19:00 10/17/24 21:06 650 MG Ceftriaxone Sodium 50 ml @ 100 mls/hr DAILY@09 IV 10/08/24 09:00 10/18/24 10:16 100 MLS/HR Metoprolol Succinate 25 mg DAILY PO 10/09/24 10:00 10/18/24 10:16 25 MG Folic Acid 1 mg DAILY PO 10/09/24 10:00 10/18/24 10:16 1 MG Hydroxychloroquine Sulfate 200 mg DAILY PO 10/09/24 10:00 10/18/24 10:16 200 MG Losartan Potassium 25 mg DAILY PO 10/09/24 10:00 10/18/24 10:17 25 MG Pantoprazole Sodium 40 mg DAILY@0630 IV 10/11/24 06:30 10/18/24 05:48 40 MG Atorvastatin Calcium 40 mg HS PO 10/10/24 22:00 10/17/24 21:05 40 MG Clonidine HCl 0.1 mg Q6HP PRN PO 10/11/24 09:15 10/14/24 01:11 0.1 MG Aspirin 81 mg DAILY PO 10/11/24 10:00 10/18/24 10:16 81 MG Metoclopramide HCl 10 mg Q8HPRN PRN IV 10/11/24 09:15 10/12/24 22:13 10 MG Enteral Nutritional Formula 240 ml BIDWM PO 10/11/24 18:00 10/18/24 08:00 240 ML Metronidazole 100 ml @ 100 mls/hr Q8H IV 10/11/24 17:00 10/18/24 12:03 100 MLS/HR Sodium Chloride 10 ml QSHIFT@10,22 IV 10/11/24 22:00 10/18/24 10:26 10 ML Ipratropium [place] 0.5 mg Q8HR NEB 10/12/24 22:00 10/18/24 06:17 0.5 MG Hydralazine HCl 10 mg Q6HP PRN IV 10/13/24 05:30 10/16/24 17:04 10 MG Enoxaparin Sodium 40 mg DAILY SC 10/17/24 10:00 10/18/24 10:16 40 MG Guaifenesin/ Dextromethorphan 10 ml Q6HPRN PRN PO 10/16/24 16:30 10/17/24 00:20 10 ML laboratory and microbiology Laboratory Tests 10/18/24 11:15 Test 10/18/24 11:15 Range/Units Serum Glucose 136 H 74-106 mg/dL Problem List LETHARGY WEAKNESS HAD A FALL BECAUSE OF WEAKNESS SEEN IN CLINIC ABOUT 5 DAYS AGO FOR SAME IV FLUID WITH MVI WAS GIVEN WITH ABX AND STEROIDS NOW WITH LEUKOCYTOSIS CT OF HEAD WITH POSSIBLE MASS PMH HTN LABILE Assessment/Plan MRI/MRA OF BRAIN ABX STEROIDS IV FLUID TACHYCARDIA MRI WITH AND WITHOUT CONTRAST CONSISTENT WITH SUBACUTE CVA PHYSICAL THERAPY STILL WITH HEADACHE CAROTID DOPPLER C/W BILATERAL 70% ICA STENOSIS CAROTID ANGIO OUTPATIENT DAPT MRCP 1. Focal severe narrowing of the common bile duct at the level of the pancreatic head. Findings are suspicious for pancreatic mass causing obstruction, with dilation of the common bile duct proximal to the level of the pancreatic head and dilated pancreatic duct also noted. Stricture would be less likely. Correlate with clinical findings. Pancreatic protocol MRI without and with contrast recommended. 2. Distended gallbladder. Gallstones visualized at the gallbladder neck and cystic duct. 3. Multiple small cysts are seen along the course of the dilated pancreatic duct. LFT ELEVATED MAY REQUIRE COMMON DUCT STENTING TRANSFER TO [facility] PT DOING WELL TODAY APPETITE GOOD DC HOME IN AM Dietary Evaluation Review Comments: Monitor PO intake to meet 75% of her needs Expected Outcomes/Goals: maintain weight Plan discussed with: Patient, Spouse JOSE ANGEL HALE MD Oct 18, 2024 13:34
--- NOTE | 2024-10-18 18:37 | DVHPN2 ---
Subjective Did not share any complaints; waiting transfer to higher level of care Reviewed: Care Plan, H&P, Labs, Medications, Previous Orders, Radiology, Other (Consultations) Changes from previous H/P or p: No Changes Objective Vitals Vital Signs Date Time Temp Pulse Resp B/P (MAP) Pulse Ox O2 Delivery O2 Flow Rate FiO2 10/18/24 16:40 97.5 95 15 150/79 (102) 93 97.5 10/18/24 13:39 Room Air 0.0 10/18/24 13:39 21 Intake/Output Intake and Output 10/18/24 07:00 Intake Total 2195 ml Output Total 700 ml Balance 1495 ml Intake Oral 1945 ml IV Total 250 ml Output Urine Total 700 ml # Voids 5 # Bowel Movements 1 General Appearance: Alert, Oriented X3, Cooperative, No acute distress HEENT: Atraumatic Neck: Supple Lungs: Clear to auscultation, Normal air movement Cardiovascular: Regular rate, Normal S1, Normal S2, No murmurs, Gallops Abdomen: Normal bowel sounds, Soft, No tenderness Extremities: Other (PICC line in place) Neuro: Normal speech, Cranial nerves 3-12 NL Psych/Mental Status: Mental status NL Medications Current Medications Medications Dose Ordered Sig/Keven Route Start Time Stop Time Status Last Admin Dose Admin Acetaminophen 650 mg Q6HP PRN PO 10/07/24 19:00 10/17/24 21:06 650 MG Ceftriaxone Sodium 50 ml @ 100 mls/hr DAILY@09 IV 10/08/24 09:00 10/18/24 10:16 100 MLS/HR Metoprolol Succinate 25 mg DAILY PO 10/09/24 10:00 10/18/24 10:16 25 MG Folic Acid 1 mg DAILY PO 10/09/24 10:00 10/18/24 10:16 1 MG Hydroxychloroquine Sulfate 200 mg DAILY PO 10/09/24 10:00 10/18/24 10:16 200 MG Losartan Potassium 25 mg DAILY PO 10/09/24 10:00 10/18/24 10:17 25 MG Pantoprazole Sodium 40 mg DAILY@0630 IV 10/11/24 06:30 10/18/24 05:48 40 MG Atorvastatin Calcium 40 mg HS PO 10/10/24 22:00 10/17/24 21:05 40 MG Clonidine HCl 0.1 mg Q6HP PRN PO 10/11/24 09:15 10/14/24 01:11 0.1 MG Aspirin 81 mg DAILY PO 10/11/24 10:00 10/18/24 10:16 81 MG Metoclopramide HCl 10 mg Q8HPRN PRN IV 10/11/24 09:15 10/12/24 22:13 10 MG Enteral Nutritional Formula 240 ml BIDWM PO 10/11/24 18:00 10/18/24 08:00 240 ML Metronidazole 100 ml @ 100 mls/hr Q8H IV 10/11/24 17:00 10/18/24 17:33 100 MLS/HR Sodium Chloride 10 ml QSHIFT@10,22 IV 10/11/24 22:00 10/18/24 10:26 10 ML Ipratropium [place] 0.5 mg Q8HR NEB 10/12/24 22:00 10/18/24 13:39 0.5 MG Hydralazine HCl 10 mg Q6HP PRN IV 10/13/24 05:30 10/16/24 17:04 10 MG Enoxaparin Sodium 40 mg DAILY SC 10/17/24 10:00 10/18/24 10:16 40 MG Guaifenesin/ Dextromethorphan 10 ml Q6HPRN PRN PO 10/16/24 16:30 10/17/24 00:20 10 ML Sucralfate 1 gm BID@0600,2200 PO 10/18/24 22:00 Laboratory Results Laboratory Tests 10/18/24 11:15 Chemistry Test 10/18/24 11:15 Albumin 3.1 g/dL (3.2-4.8) L Calcium Level 8.9 mg/dL (8.7-10.4) Total Protein 5.9 g/dL (5.7-8.2) LFT Test 10/18/24 11:15 Alanine Aminotransferase (ALT) 95 U/L (7-40) H Alkaline Phosphatase 1347 U/L (46-116) H Aspartate Amino Transferase (AST) 143 U/L (13-40) H Total Bilirubin 1.9 mg/dL (0.2-1.0) H Urinalysis Test 10/07/24 17:08 Urine Color Yellow (Yellow) Urine Clarity Turbid (Clear) H Urine pH 6.0 (5.0-9.0) Urine Specific [place] 1.014 (1.001-1.035) Urine Protein Trace (Negative) H Urine Ketones Negative (Negative) Urine Blood Negative /uL (Negative) Urine Nitrite Negative (Negative) Urine Bilirubin Negative (Negative) Urine Urobilinogen 2 mg/dL (Negative) H Urine Leukocyte Esterase Trace /uL (Negative) Urine RBC 9 /hpf (0 - 4) Urine WBC 13 /hpf (0 - 5) Urine Squamous Epithelial Cells Few /hpf (<5) Urine Bacteria Few /hpf (None Seen) H Urine Mucus Few (None Seen) Urine Glucose Normal mg/dL (Normal) Microbiology Microbiology Date/Time Source Procedure Growth Status 10/07/24 19:14 Blood Blood Culture - Final NO GROWTH AFTER 5 DAYS OF INCUBATION. Complete 10/07/24 10:51 Voided Urine Urine Culture - Final Complete Labs and/or images reviewed: Labs reviewed by me, Image(s) reviewed by me Assessment/Plan Assessment/Plan Covering Dr. 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 Howard; continue monitoring #Coronary artery disease status post stenting; continue current medical management with aspirin and statin; followed by Dr. Howard; continue monitoring #Rheumatoid arthritis; to continue holding methotrexate and hydroxychloroquine; continue monitoring #Headaches with nausea and vomiting; most likely related to acute CVA; continue current medical management; continue monitoring #Nasal bleed; stopped; continue current dose of enoxaparin; continue monitoring #Hypertensive heart disease; continue antihypertensive medications as indicated; continue monitoring Goals of care discussed with the patient for 20 minutes; full code. Pending transfer to higher level of care for ERCP. Late Entry. This medical document was created using an electronic medical record system with computerized dictation system. Although this document has been carefully reviewed, there might still be some phonetic and typographical errors. These areas are purely typographical due to imperfections of the software programs, and do not reflect any compromise in the patient's medical care. Plan discussed with: Patient, Other (Nurse) Date of Service: Oct 18, 2024 Billing Provider: HALLIE PHILLIP MD Common Visit Codes: 64870-[id number] INP/OBS CARE(HIGH) Secondary Visit Codes: 42386-XGAILEET CARE PLAN 30 MINUTES (20 minute) HALLIE PHILLIP MD Oct 18, 2024 18:37
[2024-10-18] MEDS: SUCRALFATE 1 GM/10 ML ORAL SUSP PO SCH (21:47)
[2024-10-19] VITALS (17 sets, daily range): BP systolic 140–185; BP diastolic 46–88; PULSE 62–114; RESP 16–20; TEMP 97.8–98.4; O2SAT 93–100
--- NOTE | 2024-10-19 05:39 | DVHPN2 ---
Subjective Did not share any complaints; waiting transfer to higher level of care Reviewed: Care Plan, H&P, Labs, Medications, Previous Orders, Radiology, Other (Consultations) Changes from previous H/P or p: No Changes Objective Vitals Vital Signs Date Time Temp Pulse Resp B/P (MAP) Pulse Ox O2 Delivery O2 Flow Rate FiO2 10/19/24 05:02 185/86 10/19/24 04:57 98.0 93 18 93 98.0 10/18/24 21:44 Room Air 0.0 10/18/24 21:44 21 Intake/Output Intake and Output 10/19/24 07:00 Intake Total 1000 ml Output Total 5 ml Balance 995 ml Intake Oral 650 ml IV Total 350 ml Output Urine Total 5 ml # Bowel Movements 1 General Appearance: Alert, Oriented X3, Cooperative, No acute distress HEENT: Atraumatic Neck: Supple Lungs: Clear to auscultation, Normal air movement Cardiovascular: Regular rate, Normal S1, Normal S2, No murmurs, Gallops Abdomen: Normal bowel sounds, Soft, No tenderness Extremities: Other (PICC line in place) Neuro: Normal speech, Cranial nerves 3-12 NL Psych/Mental Status: Mental status NL Medications Current Medications Medications Dose Ordered Sig/Keven Route Start Time Stop Time Status Last Admin Dose Admin Acetaminophen 650 mg Q6HP PRN PO 10/07/24 19:00 10/18/24 21:47 650 MG Ceftriaxone Sodium 50 ml @ 100 mls/hr DAILY@09 IV 10/08/24 09:00 10/18/24 10:16 100 MLS/HR Metoprolol Succinate 25 mg DAILY PO 10/09/24 10:00 10/18/24 10:16 25 MG Folic Acid 1 mg DAILY PO 10/09/24 10:00 10/18/24 10:16 1 MG Hydroxychloroquine Sulfate 200 mg DAILY PO 10/09/24 10:00 10/18/24 10:16 200 MG Losartan Potassium 25 mg DAILY PO 10/09/24 10:00 10/18/24 10:17 25 MG Pantoprazole Sodium 40 mg DAILY@0630 IV 10/11/24 06:30 10/19/24 05:02 40 MG Atorvastatin Calcium 40 mg HS PO 10/10/24 22:00 10/18/24 21:47 40 MG Clonidine HCl 0.1 mg Q6HP PRN PO 10/11/24 09:15 10/14/24 01:11 0.1 MG Aspirin 81 mg DAILY PO 10/11/24 10:00 10/18/24 10:16 81 MG Metoclopramide HCl 10 mg Q8HPRN PRN IV 10/11/24 09:15 10/12/24 22:13 10 MG Enteral Nutritional Formula 240 ml BIDWM PO 10/11/24 18:00 10/18/24 18:00 240 ML Metronidazole 100 ml @ 100 mls/hr Q8H IV 10/11/24 17:00 10/19/24 00:56 100 MLS/HR Sodium Chloride 10 ml QSHIFT@10,22 IV 10/11/24 22:00 10/18/24 21:48 10 ML Ipratropium [place] 0.5 mg Q8HR NEB 10/12/24 22:00 10/18/24 21:47 0.5 MG Hydralazine HCl 10 mg Q6HP PRN IV 10/13/24 05:30 10/19/24 05:02 10 MG Enoxaparin Sodium 40 mg DAILY SC 10/17/24 10:00 10/18/24 10:16 40 MG Guaifenesin/ Dextromethorphan 10 ml Q6HPRN PRN PO 10/16/24 16:30 10/17/24 00:20 10 ML Sucralfate 1 gm BID@0600,2200 PO 10/18/24 22:00 10/19/24 05:02 1 GM Laboratory Results Laboratory Tests 10/18/24 11:15 Chemistry Test 10/18/24 11:15 Albumin 3.1 g/dL (3.2-4.8) L Calcium Level 8.9 mg/dL (8.7-10.4) Total Protein 5.9 g/dL (5.7-8.2) LFT Test 10/18/24 11:15 Alanine Aminotransferase (ALT) 95 U/L (7-40) H Alkaline Phosphatase 1347 U/L (46-116) H Aspartate Amino Transferase (AST) 143 U/L (13-40) H Total Bilirubin 1.9 mg/dL (0.2-1.0) H Urinalysis Test 10/07/24 17:08 Urine Color Yellow (Yellow) Urine Clarity Turbid (Clear) H Urine pH 6.0 (5.0-9.0) Urine Specific [place] 1.014 (1.001-1.035) Urine Protein Trace (Negative) H Urine Ketones Negative (Negative) Urine Blood Negative /uL (Negative) Urine Nitrite Negative (Negative) Urine Bilirubin Negative (Negative) Urine Urobilinogen 2 mg/dL (Negative) H Urine Leukocyte Esterase Trace /uL (Negative) Urine RBC 9 /hpf (0 - 4) Urine WBC 13 /hpf (0 - 5) Urine Squamous Epithelial Cells Few /hpf (<5) Urine Bacteria Few /hpf (None Seen) H Urine Mucus Few (None Seen) Urine Glucose Normal mg/dL (Normal) Microbiology Microbiology Date/Time Source Procedure Growth Status 10/07/24 19:14 Blood Blood Culture - Final NO GROWTH AFTER 5 DAYS OF INCUBATION. Complete 10/07/24 10:51 Voided Urine Urine Culture - Final Complete Labs and/or images reviewed: Labs reviewed by me, Image(s) reviewed by me Assessment/Plan Assessment/Plan Covering Dr. 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 Howard; continue monitoring #Coronary artery disease status post stenting; continue current medical management with aspirin and statin; followed by Dr. Howard; continue monitoring #Rheumatoid arthritis; to continue holding methotrexate and hydroxychloroquine; continue monitoring #Headaches with nausea and vomiting; most likely related to acute CVA; continue current medical management; continue monitoring #Nasal bleed; stopped; continue current dose of enoxaparin; continue monitoring #Hypertensive heart disease; continue antihypertensive medications as indicated; continue monitoring Pending transfer to higher level of care for ERCP. Discussed the case with [facility] attending; possible transfer on Sunday October 20, 2024. Late Entry. This medical document was created using an electronic medical record system with computerized dictation system. Although this document has been carefully reviewed, there might still be some phonetic and typographical errors. These areas are purely typographical due to imperfections of the software programs, and do not reflect any compromise in the patient's medical care. Plan discussed with: Patient, Daughter, Other (Nurse) My Orders Orders - HALLIE PHILLIP MD Procedure Category Date Status Time Complete Blood Count LAB 10/19/24 Logged 04:00 Comprehensive LAB 10/19/24 Logged Metabolic Panel 04:00 Code Status CODE 10/19/24 Transmitted 05:24 Date of Service: Oct 19, 2024 Billing Provider: HALLIE PHILLIP MD Common Visit Codes: [id number] INP/OBS CARE(HIGH) HALLIE PHILLIP MD Oct 19, 2024 05:39
[2024-10-19 06:09] LABS: Basophils # (auto) 0 10 ^3/uL (0-0.2); Basophils % (auto) 0.2 % (0.0-2.0); Eosinophils # (auto) 0 10 ^3/uL (0-0.8); Eosinophils % (auto) 0.2 % (0.0-7.0); Hematocrit 30.5 % (36.0-46.0); Hemoglobin 10.3 g/dL (12.2-16.2); Lymphocytes # (auto) 1.1 10 ^3/uL (0.4-5.4); Lymphocytes % (auto) 12.9 % (10.0-50.0); Mean Corpuscular Hemoglobin 32.7 pg (28.0-32.0); Mean Corpuscular Hgb Conc. 33.7 g/dL (32.0-36.0); Monocytes # (auto) 0.8 10 ^3/uL (0-1.3); Monocytes % (auto) 9.6 % (0.0-12.0); Neutrophils # (auto) 6.7 10 ^3/uL (1.6-8.6); Neutrophils % (auto) 77.1 % (37.0-80.0); Platelet Count (auto) 193 10^3/uL (140-450); Red Blood Cells 3.15 10^6/uL (4.0-5.20); Red Cell Distribution Width 15.9 % (11.8-14.3); White Blood Cell 8.7 10^3/uL (4.4-10.8)
[2024-10-19 06:29] LABS: Anion Gap 8 (5-15); BUN/Creatinine Ratio 18.2 (10.0-20.0); Blood Urea Nitrogen 10 mg/dL (9-23); Calcium 9.6 mg/dL (8.7-10.4); Potassium 3.6 mmol/L (3.5-5.1)
[2024-10-19 06:30] LABS: Total Protein 6.2 g/dL (5.7-8.2)
[2024-10-19 06:33] LABS: Alanine Aminotransferase 87 U/L (7-40); Albumin 3.1 g/dL (3.2-4.8); Aspartate Aminotransferase 123 U/L (13-40); Bilirubin, Total 1.6 mg/dL (0.2-1.0); Carbon Dioxide 20 mmol/L (20-31); Chloride 108 mmol/L (98-107); Glucose 121 mg/dL (74-106); Sodium 136 mmol/L (136-145)
[2024-10-19 06:38] LABS: Alkaline Phosphatase 1333 U/L (46-116)
[2024-10-19] MEDS: KETOROLAC TROMETH 30 MG/ML 1ML VIAL IV ONE (12:13)
[2024-10-19] MEDS ORDERED: IPRATROPIUM BROM 0.5 MG/2.5ML INH SOL ONE (14:22)
--- NOTE | 2024-10-19 17:07 | DVHPN2 ---
Progress Note Date Seen: Oct 19, 2024 Resident Creating Document: KANDI DUBOIS RESIDENT Medical Necessity Reason Pt with a Central, PICC or Fol: No Medical Necessity Reason Pending acceptance and transferred to [facility] Subjective Review of Systems Patient is an 78-year-old lady who was admitted after a fall. She was diagnosed with subacute right parietal lobe infarct. Patient developed recurrent persistent nausea vomiting. Her liver enzymes were elevated. She underwent imaging studies that showed cholelithiasis but she also had evidence on MRCP of a narrowed segment of the distal CBD at the head of the pancreas suspicious for a pancreatic head mass. I was asked to evaluate her for the same. Patient is able to eat and does not appear to have any localizing neurological deficit at this time. Patient's liver enzymes are trending upwards and her alkaline phosphatase was over 1000. PN: 10/18/2024: Patient is seen and examined today. Lying in bed surrounded by family. She is not in any respiratory distress she has no new complaint only thing she mentioned was she feels sometimes feels like her throat to get food gets stuck in her chest she has a history of GERD. Lab today is not significantly different from yesterday were pretty much stable T bilirubin is 1.9, AST is 143 ALP is some 95 and ALP is 1347. Patient is currently waiting for transfer to a higher level of care for possibly stent in the area of stenosis in a coma biliary duct. PN: 10/19/2024 Patient is seen and examined. With a relative present. Not in any distress. Patient is currently pending acceptance at a higher level of care for a stent placement. Denies any abdominal pain nausea vomiting today viral she is stable, Objective vital signs Vital Sign Date Time Temp Pulse Resp B/P (MAP) Pulse Ox O2 Delivery O2 Flow Rate FiO2 10/19/24 16:32 98.4 83 20 154/88 (110) 97 98.4 10/19/24 14:41 Room Air* 0 21 Total Intake and Output 10/18/24 10/18/24 10/19/24 15:00 23:00 07:00 Intake Total 150 ml 750 ml 100 ml Output Total 3 ml 2 ml Balance 150 ml 747 ml 98 ml medications Current Medications Medications Dose Ordered Sig/Keven Route Start Time Stop Time Status Last Admin Dose Admin Acetaminophen 650 mg Q6HP PRN PO 10/07/24 19:00 10/18/24 21:47 650 MG Metoprolol Succinate 25 mg DAILY PO 10/09/24 10:00 10/19/24 10:44 25 MG Folic Acid 1 mg DAILY PO 10/09/24 10:00 10/19/24 10:45 1 MG Hydroxychloroquine Sulfate 200 mg DAILY PO 10/09/24 10:00 10/19/24 10:48 200 MG Losartan Potassium 25 mg DAILY PO 10/09/24 10:00 10/19/24 10:45 25 MG Pantoprazole Sodium 40 mg DAILY@0630 IV 10/11/24 06:30 10/19/24 05:02 40 MG Atorvastatin Calcium 40 mg HS PO 10/10/24 22:00 10/18/24 21:47 40 MG Clonidine HCl 0.1 mg Q6HP PRN PO 10/11/24 09:15 10/14/24 01:11 0.1 MG Aspirin 81 mg DAILY PO 10/11/24 10:00 10/19/24 10:46 81 MG Metoclopramide HCl 10 mg Q8HPRN PRN IV 10/11/24 09:15 10/12/24 22:13 10 MG Enteral Nutritional Formula 240 ml BIDWM PO 10/11/24 18:00 10/19/24 09:25 240 ML Metronidazole 100 ml @ 100 mls/hr Q8H IV 10/11/24 17:00 10/19/24 10:46 100 MLS/HR Sodium Chloride 10 ml QSHIFT@10,22 IV 10/11/24 22:00 10/19/24 10:46 10 ML Ipratropium [place] 0.5 mg Q8HR NEB 10/12/24 22:00 10/19/24 14:41 0.5 MG Hydralazine HCl 10 mg Q6HP PRN IV 10/13/24 05:30 10/19/24 05:02 10 MG Enoxaparin Sodium 40 mg DAILY SC 10/17/24 10:00 10/19/24 10:47 40 MG Guaifenesin/ Dextromethorphan 10 ml Q6HPRN PRN PO 10/16/24 16:30 10/17/24 00:20 10 ML Sucralfate 1 gm BID@0600,2200 PO 10/18/24 22:00 10/19/24 05:02 1 GM Examination General examination- Not in acute distress HEENT: [place]ER[place], no acute nasal discharge Chest: S1-S2 audible, rate and rhythm regular, no murmur Lung: CTAB, no wheeze or rhonchi Abdomen: Nondistended, BS+, nontender, no organomegaly Musculoskeletal: no acute joint swelling or tenderness Lower extremity: no leg edema Neurological: cranial nerves intact, no acute dysarthria or dysphagia Psychiatry-- Normal mood and affect Skin- no acute rash or purpura laboratory and microbiology Laboratory Tests 10/19/24 05:28 Test 10/19/24 05:28 Range/Units Serum Glucose 121 H 74-106 mg/dL Microbiology Date/Time Source Procedure Growth Status 10/07/24 19:14 Blood Blood Culture - Final NO GROWTH AFTER 5 DAYS OF INCUBATION. Complete 10/07/24 10:51 Voided Urine Urine Culture - Final Complete Problem List/Assessment/Plan Problem List/Assessment/Plan (1) Abnormal finding on GI tract imaging -->Suspected pancreatic mass/malignancy --> ALP: 1333 ( H) --> T. [place]: 1.6, AST: 123 ALT: 89 ( slowing trending down) (2) Cholelithiasis (3) ? acute cholecystitis (3) Nausea and vomiting (4) Elevated liver enzymes (5) Right sided cerebral infarction (6) Pancreatic cyst (7) CA19-9: 470 H Plan/Recommendation Continue supportive care Patient is on IV antibiotics nutritional supplements Pending transfer to [facility] for ERCP, possible stent placement possible endoscopic ultrasound These services are currently not available at our institution Goal of care discussed for more than 25 minutes Case and plan discussed with Dr. Boothe Thank you for allowing us to participate in the care of this patient. Please call if you have any questions or concerns. Plan discussed with: Patient, Other (female relative ) Dietary Evaluation Review Comments: Monitor PO intake to meet 75% of her needs Expected Outcomes/Goals: maintain weight KANDI DUBOIS RESIDENT Oct 19, 2024 17:07
[2024-10-20 01:00] VITALS: BP 127/59; PULSE 81; RESP 17; TEMP 97.9; O2SAT 97
[2024-10-20] MEDS: dilTIAZem 25 MG/5 ML VIAL IV ONE (03:14)
[2024-10-20 05:00] VITALS: BP 150/85; PULSE 109; RESP 17; TEMP 97.6; O2SAT 94
[2024-10-20 06:26] VITALS: PULSE 86; RESP 16; O2SAT 96
[2024-10-20 06:32] VITALS: PULSE 85; RESP 16; O2SAT 100
--- NOTE | 2024-10-20 06:54 | DVHPN2 ---
Subjective Did not share any complaints; will be transferred to higher level of care Reviewed: Care Plan, H&P, Labs, Medications, Previous Orders, Radiology, Other (Consultations) Changes from previous H/P or p: Changes Objective Vitals Vital Signs Date Time Temp Pulse Resp B/P (MAP) Pulse Ox O2 Delivery O2 Flow Rate FiO2 10/20/24 06:32 85 16 100 10/20/24 06:26 Room Air* 0 21 10/20/24 05:00 97.6 150/85 (106) 97.6 Intake/Output Intake and Output 10/20/24 07:00 Intake Total 840 ml Output Total 701 ml Balance 139 ml Intake Oral 840 ml Output Urine Total 701 ml General Appearance: Alert, Oriented X3, Cooperative, No acute distress HEENT: Atraumatic Neck: Supple Lungs: Clear to auscultation, Normal air movement Cardiovascular: Regular rate, Normal S1, Normal S2, No murmurs, Gallops Abdomen: Normal bowel sounds, Soft, No tenderness Extremities: Other (PICC line in place) Neuro: Normal speech, Cranial nerves 3-12 NL Psych/Mental Status: Mental status NL Medications Current Medications Medications Dose Ordered Sig/Keven Route Start Time Stop Time Status Last Admin Dose Admin Acetaminophen 650 mg Q6HP PRN PO 10/07/24 19:00 10/20/24 02:05 650 MG Metoprolol Succinate 25 mg DAILY PO 10/09/24 10:00 10/19/24 10:44 25 MG Folic Acid 1 mg DAILY PO 10/09/24 10:00 10/19/24 10:45 1 MG Hydroxychloroquine Sulfate 200 mg DAILY PO 10/09/24 10:00 10/19/24 10:48 200 MG Losartan Potassium 25 mg DAILY PO 10/09/24 10:00 10/19/24 10:45 25 MG Pantoprazole Sodium 40 mg DAILY@0630 IV 10/11/24 06:30 10/20/24 06:03 40 MG Atorvastatin Calcium 40 mg HS PO 10/10/24 22:00 10/19/24 21:50 40 MG Clonidine HCl 0.1 mg Q6HP PRN PO 10/11/24 09:15 10/14/24 01:11 0.1 MG Aspirin 81 mg DAILY PO 10/11/24 10:00 10/19/24 10:46 81 MG Metoclopramide HCl 10 mg Q8HPRN PRN IV 10/11/24 09:15 10/12/24 22:13 10 MG Enteral Nutritional Formula 240 ml BIDWM PO 10/11/24 18:00 10/19/24 21:50 240 ML Metronidazole 100 ml @ 100 mls/hr Q8H IV 10/11/24 17:00 10/20/24 00:14 100 MLS/HR Sodium Chloride 10 ml QSHIFT@10,22 IV 10/11/24 22:00 10/19/24 21:50 10 ML Ipratropium [place] 0.5 mg Q8HR NEB 10/12/24 22:00 10/20/24 06:26 0.5 MG Hydralazine HCl 10 mg Q6HP PRN IV 10/13/24 05:30 10/19/24 05:02 10 MG Enoxaparin Sodium 40 mg DAILY SC 10/17/24 10:00 10/19/24 10:47 40 MG Guaifenesin/ Dextromethorphan 10 ml Q6HPRN PRN PO 10/16/24 16:30 10/17/24 00:20 10 ML Sucralfate 1 gm BID@0600,2200 PO 10/18/24 22:00 10/20/24 06:02 1 GM Laboratory Results Laboratory Tests 10/19/24 05:28 Urinalysis Test 10/07/24 17:08 Urine Color Yellow (Yellow) Urine Clarity Turbid (Clear) H Urine pH 6.0 (5.0-9.0) Urine Specific [place] 1.014 (1.001-1.035) Urine Protein Trace (Negative) H Urine Ketones Negative (Negative) Urine Blood Negative /uL (Negative) Urine Nitrite Negative (Negative) Urine Bilirubin Negative (Negative) Urine Urobilinogen 2 mg/dL (Negative) H Urine Leukocyte Esterase Trace /uL (Negative) Urine RBC 9 /hpf (0 - 4) Urine WBC 13 /hpf (0 - 5) Urine Squamous Epithelial Cells Few /hpf (<5) Urine Bacteria Few /hpf (None Seen) H Urine Mucus Few (None Seen) Urine Glucose Normal mg/dL (Normal) Microbiology Microbiology Date/Time Source Procedure Growth Status 10/07/24 19:14 Blood Blood Culture - Final NO GROWTH AFTER 5 DAYS OF INCUBATION. Complete 10/07/24 10:51 Voided Urine Urine Culture - Final Complete Labs and/or images reviewed: Labs reviewed by me, Image(s) reviewed by me Assessment/Plan Assessment/Plan Covering Dr. Parker: #Suspected pancreatic mass/malignancy along with gallstones with suspected CBD stone, suspected acute cholecystitis, and elevated liver enzymes; GI is following; reviewed MRCP and other imaging studies; continue IV antibiotics; transferred to [facility] for ERCP #Abdominal symptoms due to above including nausea, vomiting, and intermittent abdominal pain; was on TPN; now eating well; details and management as above; transferred to [facility] for ERCP #Sepsis due to UTI; reviewed urine cultures; continue IV antibiotics as above; transferred to [facility] for ERCP #Acute CVA with carotid stenosis; continue current medical management with aspirin and statin; reviewed brain MRI and carotid ultrasound; followed by Dr. Howard; transferred to [facility] for ERCP #Coronary artery disease status post stenting; continue current medical management with aspirin and statin; followed by Dr. Howard; transferred to [facility] for ERCP #Rheumatoid arthritis; to continue holding methotrexate and hydroxychloroquine; transferred to [facility] for ERCP #Headaches with nausea and vomiting; most likely related to acute CVA; continue current medical management; transferred to [facility] for ERCP #Nasal bleed; stopped; continue current dose of enoxaparin; transferred to [facility] for ERCP #Hypertensive heart disease; continue antihypertensive medications as indicated; transferred to [facility] for ERCP Transferred to [facility] for ERCP. Discussed the case with I attending. Discharge summary documented on October 15, 2024. Late Entry. This medical document was created using an electronic medical record system with computerized dictation system. Although this document has been carefully reviewed, there might still be some phonetic and typographical errors. These areas are purely typographical due to imperfections of the software programs, and do not reflect any compromise in the patient's medical care. Plan discussed with: Patient, Daughter, Other (Nurse) Date of Service: Oct 20, 2024 Billing Provider: HALLIE PHILLIP MD Common Visit Codes: 60450-[id number] DISCH DAY >30min HALLIE PHILLIP MD Oct 20, 2024 06:54
--- NOTE | 2024-10-22 13:12 | DVHPN2 ---
Progress Note - Dictate Date Seen: Oct 19, 2024 Medical Necessity Reason Pt with a Central, PICC or Fol: No Subjective PT WITH LETHARGY WEAKNESS HAD A FALL BECAUSE OF WEAKNESS SEEN IN CLINIC ABOUT 5 DAYS AGO FOR SAME IV FLUID WITH MVI WAS GIVEN WITH ABX AND STEROIDS NOW WITH LEUKOCYTOSIS CT OF HEAD WITH POSSIBLE MASS PMH HTN LABILE laboratory and microbiology Laboratory Tests 10/19/24 05:28 Test 10/19/24 05:28 Range/Units Serum Glucose 121 H 74-106 mg/dL Problem List LETHARGY WEAKNESS HAD A FALL BECAUSE OF WEAKNESS SEEN IN CLINIC ABOUT 5 DAYS AGO FOR SAME IV FLUID WITH MVI WAS GIVEN WITH ABX AND STEROIDS NOW WITH LEUKOCYTOSIS CT OF HEAD WITH POSSIBLE MASS PMH HTN LABILE Assessment/Plan MRI/MRA OF BRAIN ABX STEROIDS IV FLUID TACHYCARDIA MRI WITH AND WITHOUT CONTRAST CONSISTENT WITH SUBACUTE CVA PHYSICAL THERAPY STILL WITH HEADACHE CAROTID DOPPLER C/W BILATERAL 70% ICA STENOSIS CAROTID ANGIO OUTPATIENT DAPT MRCP 1. Focal severe narrowing of the common bile duct at the level of the pancreatic head. Findings are suspicious for pancreatic mass causing obstruction, with dilation of the common bile duct proximal to the level of the pancreatic head and dilated pancreatic duct also noted. Stricture would be less likely. Correlate with clinical findings. Pancreatic protocol MRI without and with contrast recommended. 2. Distended gallbladder. Gallstones visualized at the gallbladder neck and cystic duct. 3. Multiple small cysts are seen along the course of the dilated pancreatic duct. LFT ELEVATED MAY REQUIRE COMMON DUCT STENTING TRANSFER TO [facility] PT DOING WELL TODAY APPETITE GOOD DC HOME IN AM Dietary Evaluation Review Comments: Monitor PO intake to meet 75% of her needs Expected Outcomes/Goals: maintain weight Plan discussed with: Patient, Spouse, Daughter JOSE ANGEL HALE MD Oct 22, 2024 13:12
--- NOTE | 2024-10-22 13:14 | DVHPN2 ---
Progress Note - Dictate Date Seen: Oct 20, 2024 Medical Necessity Reason Pt with a Central, PICC or Fol: No Subjective PT WITH LETHARGY WEAKNESS HAD A FALL BECAUSE OF WEAKNESS SEEN IN CLINIC ABOUT 5 DAYS AGO FOR SAME IV FLUID WITH MVI WAS GIVEN WITH ABX AND STEROIDS NOW WITH LEUKOCYTOSIS CT OF HEAD WITH POSSIBLE MASS PMH HTN LABILE laboratory and microbiology Laboratory Tests 10/19/24 05:28 Test 10/19/24 05:28 Range/Units Serum Glucose 121 H 74-106 mg/dL Problem List LETHARGY WEAKNESS HAD A FALL BECAUSE OF WEAKNESS SEEN IN CLINIC ABOUT 5 DAYS AGO FOR SAME IV FLUID WITH MVI WAS GIVEN WITH ABX AND STEROIDS NOW WITH LEUKOCYTOSIS CT OF HEAD WITH POSSIBLE MASS PMH HTN LABILE Assessment/Plan MRI/MRA OF BRAIN ABX STEROIDS IV FLUID TACHYCARDIA MRI WITH AND WITHOUT CONTRAST CONSISTENT WITH SUBACUTE CVA PHYSICAL THERAPY STILL WITH HEADACHE CAROTID DOPPLER C/W BILATERAL 70% ICA STENOSIS CAROTID ANGIO OUTPATIENT DAPT MRCP 1. Focal severe narrowing of the common bile duct at the level of the pancreatic head. Findings are suspicious for pancreatic mass causing obstruction, with dilation of the common bile duct proximal to the level of the pancreatic head and dilated pancreatic duct also noted. Stricture would be less likely. Correlate with clinical findings. Pancreatic protocol MRI without and with contrast recommended. 2. Distended gallbladder. Gallstones visualized at the gallbladder neck and cystic duct. 3. Multiple small cysts are seen along the course of the dilated pancreatic duct. LFT ELEVATED MAY REQUIRE COMMON DUCT STENTING TRANSFER TO [facility] PT DOING WELL TODAY APPETITE GOOD DC HOME IN AM Dietary Evaluation Review Comments: Monitor PO intake to meet 75% of her needs Expected Outcomes/Goals: maintain weight Plan discussed with: Patient, Spouse JOSE ANGEL HALE MD Oct 22, 2024 13:14
== END 2024-10-20 08:40 | disposition short-term general hospital (02) | DRG 871 ==
LOC: ER 10:00 → EDBD 10:00 → OVERFLOW 18:54 → CENTRAL 18:56 → TELE-CENTR 10-11 10:33
PROVIDERS: ADMIT Nurse Practitioner; ATTEND Internal Medicine
PROC: 02HV33Z Insertion of Infusion Device into Superior Vena Cava, Percutaneous Approach (ICD-10-PCS; principal; 2024-10-11)
PROC: B548ZZA Ultrasonography of Superior Vena Cava, Guidance (ICD-10-PCS; 2024-10-11)
DX: A41.9 Sepsis, unspecified organism (principal); I63.9 Cerebral infarction, unspecified; K80.21 Calculus of gallbladder without cholecystitis with obstruction; N39.0 Urinary tract infection, site not specified; G44.209 Tension-type headache, unspecified, not intractable; S51.011A Laceration without foreign body of right elbow, initial encounter; D64.9 Anemia, unspecified; I25.10 Atherosclerotic heart disease of native coronary artery without angina pectoris; M06.9 Rheumatoid arthritis, unspecified; I10 Essential (primary) hypertension; R04.0 Epistaxis; Z95.5 Presence of coronary angioplasty implant and graft; Z79.82 Long term (current) use of aspirin; Z88.1 Allergy status to other antibiotic agents; W18.39XA Other fall on same level, initial encounter; Y93.89 Activity, other specified; Y92.89 Other specified places as the place of occurrence of the external cause; Y99.8 Other external cause status
CPT/HCPCS: 36415; 36569; 70450; 70553; 71045; 72192; 74181; 76705; 76937; 80048; 80053; 81001; 82150; 82962; 83605; 83690; 83735; 84100; 84443; 84478; 85007; 85025; 85027; 85610; 85730; 86301; 87040; 87086; 93005; 93306; 93886; 94640; 97110; 97116; 97163; 97530; 99291; G0378; J1815; J2003; J2405; J2470; J3490

== ENCOUNTER 2024-10-24 12:48 | Inpatient (IN) | payer MEDICARE, BC ==
[~2024-10-24] VITALS: Ht 160 cm; Wt 63.0 kg
[~2024-10-24 12:48] MED LIST changes: +CHOL20007 PO; -CYANOCOBALAMIN (B-12) 1000 MCG/1 ML VIAL IM ONE; -CYANOCOBALAMIN (B-12) 1000 MCG/1 ML VIAL ONE; +FOLITAB22 PO; +HYDR-4491 PO; +IBU600T PO; +MAGNTAB16 PO; +METH2.5T PO; +METO25TA93 PO; -ONDANSETRON HCL 4 MG/2 ML VIAL IV ONE; -ONDANSETRON HCL 4 MG/2 ML VIAL ONE; +POTA-36 PO; -POTASSIUM CHL 20 Meq TABLET PO ONE; -SODIUM CHLORIDE 0.9% 1,000 ML IV ONE; -TRIAMCINOLONE 40MG/ML 1ML VIAL IM ONE; -TRIAMCINOLONE 40MG/ML 1ML VIAL ONE; +[UNRECOGNIZED DRUG - CODE] PO
[2024-10-24 20:29] VITALS: BP 166/81; PULSE 82; RESP 17; TEMP 97.3; O2SAT 93
[2024-10-24] MEDS ORDERED: METO-289 PO (20:37)
[2024-10-24] MEDS ORDERED: POTA-180 PO (20:37)
[2024-10-24] MEDS ORDERED: HYDR200T36 (20:37)
[2024-10-24] MEDS ORDERED: FOLI-119 PO (20:37)
[2024-10-24] MEDS ORDERED: NITROGLYCERIN 0.4 MG SL TAB SL PRN (22:15)
[2024-10-24] MEDS ORDERED: ONDANSETRON HCL 4 MG/2 ML VIAL IV PRN (22:15)
[2024-10-24] MEDS ORDERED: MORPHINE SULFATE INJ 2 MG/ml SYRG IV PRN (22:15)
[2024-10-24] MEDS ORDERED: HYDROcodone-ACET 5/325MG TAB PO PRN (22:15)
[2024-10-24] MEDS ORDERED: DOCUSATE SOD 100 MG CAP PO PRN (22:15)
[2024-10-24] MEDS: SODIUM CHLORIDE 0.9% 1,000 ML IV SCH (22:15)
--- NOTE | 2024-10-24 22:52 | DVHHP2 ---
History of Present Illness Reason for Visit: Pancreatic mass History of Present Illness The patient is a 78-year-old female with past medical history of Coronary artery disease, hypertension, and rheumatoid arthritis who presented to [facility] from [facility] for higher level of care and ERCP of pancreatic mass. Initial CT and MRCP at [facility] showing dilated CBD with focal narrowing of CBD at the level of the pancreatic head, suspicious for pancreatic mass causing obstruction. Patient underwent ERCP procedure on October 22, 2024 with CBD cannulation and sphincterotomy and stent placement without complication. Patient was stabilized and then transferred to [facility] for ongoing care secondary to insurance purposes. Please see medication orders section in the computer. On my assessment, patient denies chest pain, no headache, no dizziness, no diaphoresis, shortness of breaths, no abdominal pain at this moment, no diarrhea, no nausea, no vomiting, no fever, no chills. Patient was admitted for further evaluation and medical management. Past Medical History Coronary artery disease, hypertension, rheumatoid arthritis. Past Surgical History RCA stent placement Family History Reviewed, noncontributory to the management of this case. Past Social History The patient lives at home, denies smoking, alcohol or illicit drugs abuse. Review of Systems Constitutional: Yes: Weakness; No: Fever, Chills, Sweats, Malaise, Other Eyes: No: Pain, Vision change, Conjunctivae inflammation, Eyelid inflammation, Other, Redness ENT: No: Ear pain, Ear discharge, Nose pain, Nose discharge, Nose congestion, Mouth pain, Mouth swelling, Throat pain, Throat swelling, Other Respiratory: No: Cough, Dry, Shortness of breath, SOB with excertion, Wheezing, Hemoptysis, Pleuritic Pain, Sputum, Wheezing, Other Cardiovascular: No: Chest Pain, Palpitations, Orthopnea, Paroxysmal Noc. Dyspnea, Edema, Lt Headedness, Other Gastrointestinal: Abdominal Pain; No: Nausea, Vomiting, Diarrhea, Constipation, Melena, Hematochezia, Other Genitourinary: No Dysuria, No Frequency, No Incontinence, No Hematuria, No Retention, No Other Musculoskeletal: No: other, neck pain, shoulder pain, arm pain, back pain, hand pain, leg pain, foot pain Skin: No: Rash, Lesions, Jaundice, Bruising, Other Neurological: No: Weakness, Numbness, Incoordination, Change in speech, Confusion, Seizures, Other Allergies: Coded Allergies: Ciprofloxacin (Verified Allergy, Unknown, 02/21/18) Iodine (Verified Allergy, Unknown, 06/23/17) Simvastatin (Verified Allergy, Unknown, 10/10/24) BONE PAIN Sulfa Antibiotics (Verified Allergy, Unknown, 06/23/17) Medications Current Medications Medications Dose Ordered Sig/Keven Route Start Time Stop Time Status Last Admin Dose Admin Sodium Chloride 1,000 ml @ 60 mls/hr [id number] IV 10/24/24 22:15 Acetaminophen/ Hydrocodone Bitart 1 tab Q4HP PRN PO 10/24/24 22:15 Ondansetron HCl 4 mg Q4HP PRN IV 10/24/24 22:15 Docusate Sodium 100 mg BIDPRN PRN PO 10/24/24 22:15 Acetaminophen 650 mg Q6HP PRN PO 10/24/24 22:15 Nitroglycerin 0.4 mg Q5MINP PRN SL 10/24/24 22:15 Morphine Sulfate 2 mg Q30M PRN IV 10/24/24 22:15 Carvedilol 3.125 mg Q12HR PO 10/25/24 10:00 Hydralazine HCl 10 mg Q6HP PRN IV 10/24/24 22:15 Amlodipine Besylate 5 mg DAILY PO 10/25/24 10:00 Aspirin 81 mg DAILY PO 10/25/24 10:00 Folic Acid 1 mg DAILY PO 10/25/24 10:00 Multivitamins 1 tab DAILY PO 10/25/24 10:00 Melatonin 5 mg HS PO 10/25/24 22:00 Exam Vital Signs Vital Signs Date Time Temp Pulse Resp B/P (MAP) Pulse Ox O2 Delivery O2 Flow Rate FiO2 10/24/24 20:29 97.3 82 17 166/81 (109) 93 97.3 General Appearance: Alert, Oriented X3, Cooperative, No acute distress HEENT: Atraumatic, PERRLA, EOMI, Mucous membr. moist/pink Respiratory: Clear to auscultation, Normal air movement Cardiovascular: Regular rate, Normal S1, Normal S2, No murmurs Abdominal: Normal bowel sounds, Soft, No hepatospenomegaly, Other (Reports tenderness) Extremities: No clubbing, No cyanosis, No edema, Normal pulses, No tender ness/swelling Skin: No rashes, No breakdown, No significant lesion Neuro: Normal speech, Normal tone, Sensation intact, Cranial nerves 3-12 NL, Reflexes 2+, Other (Generalized weakness) Psych/Mental Status: Mental status NL, Mood NL Labs/Xrays Pending lab results Assessment/Plan Assessment/Plan Pancreatic mass Hypertension Elevated liver enzymes Generalized weakness Status post ERCP Plan 1. Admit to med surge unit 2. Breathing treatment 3. Pain control management 4. Management of fluids and electrolytes 5. Consultation for GI/hospitalist 6. Diagnostic tests status post ERCP 7. DVT prophylaxis-on aspirin 8. Repeat labs CBC, CMP in a.m. 9. Continue with current medical management 10. Treatment plan discussed with patient and RN. Patient verbalized underst anding. Plan discussed with: Patient, Other (RN) My Orders Orders - TREVER NDIAYE DNP Procedure Category Date Status Time Admit ADMIT 10/24/24 Transmitted 22:04 Allergies DANIELITO 10/24/24 In Process 22:04 Code Status CODE 10/24/24 Transmitted 22:04 Sodium Chloride 0.9% PHA 10/24/24 In Process 22:15 Oxygen Per Hour RT 10/24/24 Transmitted 22:04 Hydrocodone-Acet PHA 10/24/24 In Process 5/325mg Tab ([place] 22:15 Ondansetron Hcl PHA 10/24/24 In Process (Zofran) 22:15 Docusate Sodium PHA 10/24/24 In Process Capsule (Colace 22:15 Complete Blood Count LAB 10/25/24 Verified 04:00 Comprehensive LAB 10/25/24 Verified Metabolic Panel 04:00 Cardiac DIET 10/25/24 Transmitted Diet-2gna,Lofat,Lochol Breakfast Condition: Serious DANIELITO 10/24/24 In Process 22:04 Acetaminophen Tablet PHA 10/24/24 In Process (Tylenol Tablet) 22:15 Nitroglycerin PHA 10/24/24 In Process Sublingual (Ntrostat 22:15 Morphine Sulfate PHA 10/24/24 In Process Injection 22:15 Notify Of Changes DANIELITO 10/24/24 In Process From Base 22:04 Emergency Dysrhythmia DANIELITO 10/24/24 In Process Protocol 22:04 Oxygen By Nasal RT 10/24/24 Transmitted Cannula 22:04 * Gi Dvh Slip Seat Coverer CONS 10/24/24 Transmitted 22:04 Carvedilol Tablet PHA 10/25/24 In Process (Coreg Tablet) 10:00 Hydralazine Injection PHA 10/24/24 In Process (Apresoline Inject 22:15 Amlodipine Tablet PHA 10/25/24 In Process (Norvasc Tablet) 10:00 Aspirin Tablet PHA 10/25/24 In Process 10:00 Folic Acid Tablet PHA 10/25/24 In Process 10:00 Multiple Vitamin PHA 10/25/24 In Process Tablet (Mvi Tab) 10:00 Melatonin (Melatonin) PHA 10/25/24 In Process 22:00 Problem List: (1) Pancreatic mass (2) Elevated liver enzymes (3) Hypertension (4) Generalized weakness (5) Status post endoscopic retrograde cholangiopancreatography Date of Service: Oct 24, 2024 Billing Provider: TREVER NDIAYE DNP Common Visit Codes: [id number] INP/OBS CARE (HIGH) TREVER NDIAYE DNP Oct 24, 2024 22:52
[2024-10-24 23:59] LABS: Basophils # (auto) 0 10 ^3/uL (0-0.2); Basophils % (auto) 0.2 % (0.0-2.0); Eosinophils # (auto) 0.3 10 ^3/uL (0-0.8); Hematocrit 29.1 % (36.0-46.0); Hemoglobin 9.8 g/dL (12.2-16.2); Lymphocytes # (auto) 1.4 10 ^3/uL (0.4-5.4); Lymphocytes % (auto) 15.4 % (10.0-50.0); Mean Corpuscular Hgb Conc. 33.6 g/dL (32.0-36.0); Mean Corpuscular Volume 95.2 fL (80.0-100.0); Monocytes % (auto) 10.8 % (0.0-12.0); Neutrophils # (auto) 6.3 10 ^3/uL (1.6-8.6); Neutrophils % (auto) 70.6 % (37.0-80.0); Nucleated Red Blood Cells % 0.1 %; Platelet Count (auto) 309 10^3/uL (140-450); Red Blood Cells 3.06 10^6/uL (4.0-5.20); Red Cell Distribution Width 15.6 % (11.8-14.3); White Blood Cell 8.9 10^3/uL (4.4-10.8)
[2024-10-25] VITALS (8 sets, daily range): BP systolic 138–180; BP diastolic 72–94; PULSE 74–117; RESP 16–20; TEMP 97.5–98; O2SAT 93–96
[2024-10-25 00:17] LABS: Anion Gap 8 (5-15); BUN/Creatinine Ratio 31.7 (10.0-20.0); Blood Urea Nitrogen 13 mg/dL (9-23); Calcium 9.2 mg/dL (8.7-10.4); Carbon Dioxide 21 mmol/L (20-31); Chloride 103 mmol/L (98-107); Potassium 3.6 mmol/L (3.5-5.1)
[2024-10-25 00:34] LABS: Alanine Aminotransferase 136 U/L (7-40); Albumin 3.1 g/dL (3.2-4.8); Alkaline Phosphatase 1611 U/L (46-116); Aspartate Aminotransferase 153 U/L (13-40); Bilirubin, Total 1.7 mg/dL (0.2-1.0); Glucose 122 mg/dL (74-106); Sodium 132 mmol/L (136-145)
[2024-10-25] MEDS: hydrALAZINE HCL 20 MG/ML VL IV PRN (01:48)
[2024-10-25 07:45] LABS: Basophils # (auto) 0 10 ^3/uL (0-0.2); Basophils % (auto) 0.4 % (0.0-2.0); Eosinophils # (auto) 0.3 10 ^3/uL (0-0.8); Eosinophils % (auto) 3.4 % (0.0-7.0); Hematocrit 30.5 % (36.0-46.0); Hemoglobin 10.5 g/dL (12.2-16.2); Lymphocytes # (auto) 1.4 10 ^3/uL (0.4-5.4); Mean Corpuscular Hemoglobin 32.9 pg (28.0-32.0); Mean Corpuscular Hgb Conc. 34.5 g/dL (32.0-36.0); Mean Corpuscular Volume 95.4 fL (80.0-100.0); Monocytes # (auto) 1.1 10 ^3/uL (0-1.3); Monocytes % (auto) 11.9 % (0.0-12.0); Neutrophils # (auto) 6.5 10 ^3/uL (1.6-8.6); Neutrophils % (auto) 69.3 % (37.0-80.0); Nucleated Red Blood Cells % 0.1 %; Platelet Count (auto) 329 10^3/uL (140-450); Red Blood Cells 3.19 10^6/uL (4.0-5.20); Red Cell Distribution Width 15.6 % (11.8-14.3); White Blood Cell 9.4 10^3/uL (4.4-10.8)
[2024-10-25 07:57] LABS: Anion Gap 8 (5-15); Blood Urea Nitrogen 11 mg/dL (9-23); Calcium 9.5 mg/dL (8.7-10.4); Carbon Dioxide 22 mmol/L (20-31); Chloride 103 mmol/L (98-107); Potassium 3.6 mmol/L (3.5-5.1)
[2024-10-25 07:58] LABS: Total Protein 6.3 g/dL (5.7-8.2)
[2024-10-25 08:08] LABS: Alanine Aminotransferase 122 U/L (7-40); Albumin 3.1 g/dL (3.2-4.8); Alkaline Phosphatase 1556 U/L (46-116); Aspartate Aminotransferase 128 U/L (13-40); Bilirubin, Total 1.8 mg/dL (0.2-1.0); Glucose 119 mg/dL (74-106); Sodium 133 mmol/L (136-145)
[2024-10-25] MEDS: MULTIPLE VITAMIN TAB PO SCH (09:34)
[2024-10-25] MEDS: amLODIPine BESYLATE 5 MG TAB PO SCH (09:34)
[2024-10-25] MEDS: ASPirin 81 mg TAB PO SCH (09:34)
[2024-10-25] MEDS: FOLIC ACID 1 MG TAB PO SCH (09:35)
[2024-10-25] MEDS: CARVEDILOL 3.125 MG TAB PO SCH (09:35)
[2024-10-25 14:23] LABS: Lipase 41 U/L (12-53)
[2024-10-25 14:24] LABS: Amylase 36 U/L (30-118)
--- NOTE | 2024-10-25 15:15 | DVHPN2 ---
Progress Note - Dictate Date Seen: Oct 25, 2024 Medical Necessity Reason Pt with a Central, PICC or Fol: No Subjective PT WITH PANCREATIC MASS S/P STENT S/P BIOPSY MEEDS WHIPPLE PROCEDURE IF BIOPSYS CONSISTENT WITH MALIGNANCY LETHARGY WEAKNESS HAD A FALL BECAUSE OF WEAKNESS SEEN IN CLINIC ABOUT 5 DAYS AGO FOR SAME IV FLUID WITH MVI WAS GIVEN WITH ABX AND STEROIDS NOW WITH LEUKOCYTOSIS CT OF HEAD WITH POSSIBLE MASS PMH HTN LABILE vital signs Vital Sign Date Time Temp Pulse Resp B/P (MAP) Pulse Ox O2 Delivery O2 Flow Rate FiO2 10/25/24 12:16 98.0 117 19 148/78 (101) 96 98.0 10/25/24 08:00 Room Air* 0 21 Total Intake and Output 10/24/24 10/24/24 10/25/24 15:00 23:00 07:00 Intake Total 100 ml Balance 100 ml medications Current Medications Medications Dose Ordered Sig/Keven Route Start Time Stop Time Status Last Admin Dose Admin Sodium Chloride 1,000 ml @ 60 mls/hr [id number] IV 10/24/24 22:15 10/24/24 22:15 60 MLS/HR Acetaminophen/ Hydrocodone Bitart 1 tab Q4HP PRN PO 10/24/24 22:15 Ondansetron HCl 4 mg Q4HP PRN IV 10/24/24 22:15 Docusate Sodium 100 mg BIDPRN PRN PO 10/24/24 22:15 Acetaminophen 650 mg Q6HP PRN PO 10/24/24 22:15 Nitroglycerin 0.4 mg Q5MINP PRN SL 10/24/24 22:15 Morphine Sulfate 2 mg Q30M PRN IV 10/24/24 22:15 Carvedilol 3.125 mg Q12HR PO 10/25/24 10:00 10/25/24 09:35 3.125 MG Hydralazine HCl 10 mg Q6HP PRN IV 10/24/24 22:15 10/25/24 01:48 10 MG Amlodipine Besylate 5 mg DAILY PO 10/25/24 10:00 10/25/24 09:34 5 MG Aspirin 81 mg DAILY PO 10/25/24 10:00 10/25/24 09:34 81 MG Folic Acid 1 mg DAILY PO 10/25/24 10:00 10/25/24 09:35 1 MG Multivitamins 1 tab DAILY PO 10/25/24 10:00 10/25/24 09:34 1 TAB Melatonin 5 mg HS PO 10/25/24 22:00 laboratory and microbiology Laboratory Tests 10/25/24 07:03 Test 10/25/24 07:03 Range/Units Serum Glucose 119 H 74-106 mg/dL Problem List PANCREATIC MASS Assessment/Plan LETHARGY WEAKNESS HAD A FALL BECAUSE OF WEAKNESS SEEN IN CLINIC ABOUT 5 DAYS AGO FOR SAME IV FLUID WITH MVI WAS GIVEN WITH ABX AND STEROIDS NOW WITH LEUKOCYTOSIS CT OF HEAD WITH POSSIBLE MASS HTN LABILE PT S/P COMMON DUCT STENTING OBSTRUCTIVE PANCREATIC MASS NOW TRANSFERRED BACK FROM [facility] WHEN STABLE Plan discussed with: Patient, Spouse Critical Care Time(min): 35 JOSE ANGEL HALE MD Oct 25, 2024 15:15
--- NOTE | 2024-10-25 15:25 | DVHPN2 ---
Progress Note - Dictate Date Seen: Oct 24, 2024 Medical Necessity Reason Pt with a Central, PICC or Fol: No Subjective PT WITH PANCREATIC MASS S/P STENT S/P BIOPSY MEEDS WHIPPLE PROCEDURE IF BIOPSYS CONSISTENT WITH MALIGNANCY LETHARGY WEAKNESS HAD A FALL BECAUSE OF WEAKNESS SEEN IN CLINIC ABOUT 5 DAYS AGO FOR SAME IV FLUID WITH MVI WAS GIVEN WITH ABX AND STEROIDS NOW WITH LEUKOCYTOSIS CT OF HEAD WITH POSSIBLE MASS PMH HTN LABILE vital signs Vital Sign Date Time Temp Pulse Resp B/P (MAP) Pulse Ox O2 Delivery O2 Flow Rate FiO2 10/25/24 12:16 98.0 117 19 148/78 (101) 96 98.0 10/25/24 08:00 Room Air* 0 21 Total Intake and Output 10/24/24 10/24/24 10/25/24 15:00 23:00 07:00 Intake Total 100 ml Balance 100 ml medications Current Medications Medications Dose Ordered Sig/Keven Route Start Time Stop Time Status Last Admin Dose Admin Sodium Chloride 1,000 ml @ 60 mls/hr [id number] IV 10/24/24 22:15 10/24/24 22:15 60 MLS/HR Acetaminophen/ Hydrocodone Bitart 1 tab Q4HP PRN PO 10/24/24 22:15 Ondansetron HCl 4 mg Q4HP PRN IV 10/24/24 22:15 Docusate Sodium 100 mg BIDPRN PRN PO 10/24/24 22:15 Acetaminophen 650 mg Q6HP PRN PO 10/24/24 22:15 Nitroglycerin 0.4 mg Q5MINP PRN SL 10/24/24 22:15 Morphine Sulfate 2 mg Q30M PRN IV 10/24/24 22:15 Carvedilol 3.125 mg Q12HR PO 10/25/24 10:00 10/25/24 09:35 3.125 MG Hydralazine HCl 10 mg Q6HP PRN IV 10/24/24 22:15 10/25/24 01:48 10 MG Amlodipine Besylate 5 mg DAILY PO 10/25/24 10:00 10/25/24 09:34 5 MG Aspirin 81 mg DAILY PO 10/25/24 10:00 10/25/24 09:34 81 MG Folic Acid 1 mg DAILY PO 10/25/24 10:00 10/25/24 09:35 1 MG Multivitamins 1 tab DAILY PO 10/25/24 10:00 10/25/24 09:34 1 TAB Melatonin 5 mg HS PO 10/25/24 22:00 laboratory and microbiology Laboratory Tests 10/25/24 07:03 Test 10/25/24 07:03 Range/Units Serum Glucose 119 H 74-106 mg/dL Problem List PANCREATIC MASS VRE BACTEREMIA Assessment/Plan LETHARGY WEAKNESS HAD A FALL BECAUSE OF WEAKNESS SEEN IN CLINIC ABOUT 5 DAYS AGO FOR SAME IV FLUID WITH MVI WAS GIVEN WITH ABX AND STEROIDS NOW WITH LEUKOCYTOSIS CT OF HEAD WITH POSSIBLE MASS HTN LABILE PT S/P COMMON DUCT STENTING OBSTRUCTIVE PANCREATIC MASS NOW TRANSFERRED BACK FROM [facility] WHEN STABLE START VRE TPN Plan discussed with: Patient, Spouse, Daughter Critical Care Time(min): 35 JOSE ANGEL HALE MD Oct 25, 2024 15:25
[2024-10-25] MEDS ORDERED: TPN PER PHARMACY 0 ML IV SCH (16:45)
[2024-10-25] MEDS: LINEZOLID 600MG/300ML 300 ML IV SCH (17:21)
--- NOTE | 2024-10-25 18:10 | DVHINCON2 ---
Date of service: Oct 25, [address] Sierra Reason for Consultation 78-year-old female with a history of coronary artery disease hypertension was in uCi transfer from [facility] via level of care for a possible pancreatic mass. Patient CEA CT as LS MRI MRCP which showed a past severe narrowing of the CBD at the level of the pancreas suspicious for pancreatic mass with obstruction History of Present Illness 78-year-old female with a history of coronary artery disease hypertension was in uCi transfer from [facility] via level of care for a possible pancreatic mass. Patient CEA CT as LS MRI MRCP which showed a past severe narrowing of the CBD at the level of the pancreas suspicious for pancreatic mass with obstruction UCi see had a ERCP done with stenting on October 22, 2024 patient was stabilized and then transferred to [facility] for continuing care At present she has got complaints of weakness and tiredness At biopsy has been done of the pancreatic mass along with the stenting and we are waiting for the biopsy at this time Patient complaints of weakness and tiredness otherwise no other fever chills or other systemic symptoms at this time Past Medical History Hypertension coronary artery disease rheumatoid arthritis Past Surgical History Stent placement Family History: Patient reports no known family medical history. Family History Noncontributory Social History Denies smoking or drinking Allergies: Coded Allergies: Ciprofloxacin (Verified Allergy, Unknown, 02/21/18) Iodine (Verified Allergy, Unknown, 06/23/17) Simvastatin (Verified Allergy, Unknown, 10/10/24) BONE PAIN Sulfa Antibiotics (Verified Allergy, Unknown, 06/23/17) Home Meds Reported Medications Hydroxychloroquine Sulfate (Hydroxychloroquine Sulfat) 200 Mg Tab, 1 TAB DAILY 10/24/24 Potassium Chloride (Potassium Chloride ER) 20 Meq Tab, 1 TAB PO DAILY 10/24/24 Folic Acid (Folic Acid) 1 Mg Tab, 1 TAB PO DAILY 10/24/24 Metoprolol Succinate (Metoprolol Succinate Er) 50 Mg Tab, 1 TAB PO DAILY 10/24/24 Magnesium Chloride (Slow-Mag) Tab, 2 TAB PO DAILY, TAB 10/08/24 Linseed Oil (Flax Seed Oil) 1,000 Mg Cap, 1000 MG PO, CAP 10/08/24 Cholecalciferol (VITAMIN D3) 2,000 Unit Tab, 1 TAB PO DAILY, #30 TAB 5 Refills 10/08/24 Ibuprofen Micronized (MOTRIN TABLET) 600 Mg Tb, 600 MG PO TID, #40 TAB *Black box warning-NSAIDS can increase risk of AL & hypertension, GI irritation, ulceration, bleed, perferation. Do not use post cardiac surgery. Use short duration/lowest effective dose. 10/08/24 Current Medications Current Medications Medications (Trade) Dose Ordered Sig/Keven Route PRN Reason Start Time Stop Time Status Last Admin Sodium Chloride 1,000 ml @ 60 mls/hr [id number] IV 10/24/24 22:15 10/24/24 22:15 Acetaminophen/ Hydrocodone Bitart ([place] 5/325MG Tab) 1 tab Q4HP PRN PO MODERATE PAIN (4-6 PAIN SCALE) 10/24/24 22:15 Ondansetron HCl (Zofran) 4 mg Q4HP PRN IV NAUSEA / VOMITING 10/24/24 22:15 Docusate Sodium (Colace Capsule) 100 mg BIDPRN PRN PO FOR CONSTIPATION 10/24/24 22:15 Acetaminophen (Tylenol Tablet) 650 mg Q6HP PRN PO PAIN SCALE 1-3 OR TEMP>100.4 10/24/24 22:15 Nitroglycerin (Ntrostat Sublingual) 0.4 mg Q5MINP PRN SL FOR CHEST PAIN 10/24/24 22:15 Morphine Sulfate 2 mg Q30M PRN IV FOR CHEST PAIN 10/24/24 22:15 Carvedilol (Coreg Tablet) 3.125 mg Q12HR PO 10/25/24 10:00 10/25/24 09:35 Hydralazine HCl (Apresoline Injection) 10 mg Q6HP PRN IV SBP>150 10/24/24 22:15 10/25/24 01:48 Amlodipine Besylate (Norvasc Tablet) 5 mg DAILY PO 10/25/24 10:00 10/25/24 09:34 Aspirin 81 mg DAILY PO 10/25/24 10:00 10/25/24 09:34 Folic Acid 1 mg DAILY PO 10/25/24 10:00 10/25/24 09:35 Multivitamins (Mvi Tab) 1 tab DAILY PO 10/25/24 10:00 10/25/24 09:34 Melatonin (Melatonin) 5 mg HS PO 10/25/24 22:00 Patient Own Medication 600 mg BID IV 10/25/24 22:00 10/25/24 15:39 DC Linezolid 300 ml @ 150 mls/hr Q12H IV 10/25/24 17:00 10/25/24 17:21 Amino Acids 0 ml @ 0 mls/hr PER PHARMACY IV 10/25/24 16:45 UNV Review of Systems 10 point review of system noncontributory Vital Signs Vital Signs Date Time Temp Pulse Resp B/P (MAP) Pulse Ox O2 Delivery O2 Flow Rate FiO2 10/25/24 17:06 97.5 85 20 138/72 (94) 94 97.5 10/25/24 08:00 Room Air* 0 21 Physical Exam Averagely built and nourished female slightly wasted in no acute distress but chronically ill looking HEENT exam no pallor no icterus Neck is supple Lungs clear Cardiovascular unremarkable Abdomen soft minimal tenderness in the epigastrium no rigidity no guarding no masses bowel sounds normal Extremities no edema Neuro grossly intact Labs/Diagnostic Data Labs Test 10/25/24 07:03 Range/Units White Blood Count 9.4 4.4-10.8 10^3/uL Red Blood Count 3.19 L 4.0-5.20 10^6/uL Hemoglobin 10.5 L 12.2-16.2 g/dL Hematocrit 30.5 L 36.0-46.0 % Mean Corpuscular Volume 95.4 80.0-100.0 fL Mean Corpuscular Hemoglobin 32.9 H 28.0-32.0 pg Mean Corpuscular Hemoglobin Concent 34.5 32.0-36.0 g/dL Red Cell Distribution Width 15.6 H 11.8-14.3 % Platelet Count 329 140-450 10^3/uL Mean Platelet Volume 8.5 6.9-10.8 fL Neutrophils (%) (Auto) 69.3 37.0-80.0 % Lymphocytes (%) (Auto) 15.0 10.0-50.0 % Monocytes (%) (Auto) 11.9 0.0-12.0 % Eosinophils (%) (Auto) 3.4 0.0-7.0 % Basophils (%) (Auto) 0.4 0.0-2.0 % Neutrophils # (Auto) 6.5 1.6-8.6 10 ^3/uL Lymphocytes # (Auto) 1.4 0.4-5.4 10 ^3/uL Monocytes # (Auto) 1.1 0-1.3 10 ^3/uL Eosinophils # (Auto) 0.3 0-0.8 10 ^3/uL Basophils # (Auto) 0 0-0.2 10 ^3/uL Nucleated Red Blood Cells 0.1 % Sodium Level 133 L 136-145 mmol/L Potassium Level 3.6 3.5-5.1 mmol/L Chloride Level 103 98-107 mmol/L Carbon Dioxide Level 22 20-31 mmol/L Anion Gap 8 5-15 Blood Urea Nitrogen 11 9-23 mg/dL Creatinine 0.50 L 0.550-1.02 mg/dL Glomerular Filtration Rate Calc 95 >90 mL/min BUN/Creatinine Ratio 22.0 H 10.0-20.0 Serum Glucose 119 H 74-106 mg/dL Calcium Level 9.5 8.7-10.4 mg/dL Total Bilirubin 1.8 H 0.2-1.0 mg/dL Aspartate Amino Transferase (AST) 128 H 13-40 U/L Alanine Aminotransferase (ALT) 122 H 7-40 U/L Alkaline Phosphatase 1556 H 46-116 U/L Total Protein 6.3 5.7-8.2 g/dL Albumin 3.1 L 3.2-4.8 g/dL Amylase Level 36 30-118 U/L Lipase 41 12-53 U/L Microbiology Date/Time Source Procedure Growth Status 10/24/24 21:00 Nose MRSA Screen - Final Complete Assessment 78-year-old female with a history of coronary artery disease hypertension arthritis with pancreatic mass for which with obstructive jaundice for which she had stent placement at [facility] with pancreatic head mass biopsies the biopsy results are pending At present has complaints of weakness tiredness and some abdominal bloating and fullness No hematemesis melena no fever chills or symptoms of cholangitis LFTs slightly increased status post stent Plan/Recommendation Await the biopsy results Follow liver enzymes closely If needed ID consult and antibiotics We will recommend either surgical intervention like of Whipple's which may be d ifficult in this lady who is 78 years old with medical problems Other possibilities conservative treatment and supportive care Her overall prognosis is guarded Thank you Dr. Parsons Plan discussed with: Patient SALOMON PARSONS MD Oct 25, 2024 18:10
[2024-10-25] MEDS ORDERED: DEXTROSE (50%) 50ML SYRG IV SCH (18:15)
[2024-10-25] MEDS ORDERED: PATIENTS OWN MEDICATION (zyvox 600 MG) IV SCH (22:00)
[2024-10-25] MEDS: MELATONIN 5 MG TAB PO SCH (22:53)
[2024-10-25] MEDS: AMINO ACID INFUSION IN D5W 1,000 ML IV SCH (22:57)
[2024-10-26] VITALS (7 sets, daily range): BP systolic 140–160; BP diastolic 74–85; PULSE 80–91; RESP 17–20; TEMP 97.9–98.7; O2SAT 92–99
[2024-10-26] MEDS: ACCU-CHEK COMFORT CURVE STRIP VI SCH (00:16)
[2024-10-26] MEDS: InsuLIN REG 1unit/0.01ml Soln (100units/ml) SC SCH (00:18)
[2024-10-26 10:56] LABS: Anion Gap 6 (5-15); BUN/Creatinine Ratio 26.1 (10.0-20.0); Blood Urea Nitrogen 12 mg/dL (9-23); Calcium 9.2 mg/dL (8.7-10.4); Chloride 106 mmol/L (98-107); Magnesium 1.6 mg/dL (1.6-2.6); Phosphorus 2.6 mg/dL (2.4-5.1); Potassium 3.5 mmol/L (3.5-5.1); Triglycerides 121 mg/dL (< 150)
[2024-10-26 10:57] LABS: Total Protein 6.2 g/dL (5.7-8.2)
[2024-10-26 10:59] LABS: Alanine Aminotransferase 98 U/L (7-40); Albumin 3.1 g/dL (3.2-4.8); Aspartate Aminotransferase 81 U/L (13-40); Bilirubin, Total 1.3 mg/dL (0.2-1.0); Carbon Dioxide 19 mmol/L (20-31); Glucose 131 mg/dL (74-106); Sodium 131 mmol/L (136-145)
[2024-10-26 11:15] LABS: Alkaline Phosphatase 1254 U/L (46-116)
--- NOTE | 2024-10-26 14:51 | DVHPN2 ---
Progress Note - Dictate Date Seen: Oct 26, 2024 Medical Necessity Reason Pt with a Central, PICC or Fol: No Subjective Patient's abdominal pain is much better feeling lot better no fever no chills vital signs Vital Sign Date Time Temp Pulse Resp B/P (MAP) Pulse Ox O2 Delivery O2 Flow Rate FiO2 10/26/24 13:00 98.4 81 20 140/78 (98) 99 98.4 10/26/24 08:00 Room Air* 0 21 Total Intake and Output 10/25/24 10/25/24 10/26/24 14:59 22:59 06:59 Intake Total 2100 ml 650 ml Output Total 1100 ml Balance 1000 ml 650 ml medications Current Medications Medications Dose Ordered Sig/Keven Route Start Time Stop Time Status Last Admin Dose Admin Sodium Chloride 1,000 ml @ 60 mls/hr [id number] IV 10/24/24 22:15 10/26/24 07:36 60 MLS/HR Acetaminophen/ Hydrocodone Bitart 1 tab Q4HP PRN PO 10/24/24 22:15 Ondansetron HCl 4 mg Q4HP PRN IV 10/24/24 22:15 Docusate Sodium 100 mg BIDPRN PRN PO 10/24/24 22:15 Acetaminophen 650 mg Q6HP PRN PO 10/24/24 22:15 Nitroglycerin 0.4 mg Q5MINP PRN SL 10/24/24 22:15 Morphine Sulfate 2 mg Q30M PRN IV 10/24/24 22:15 Hold Carvedilol 3.125 mg Q12HR PO 10/25/24 10:00 10/26/24 10:06 3.125 MG Hydralazine HCl 10 mg Q6HP PRN IV 10/24/24 22:15 10/25/24 01:48 10 MG Amlodipine Besylate 5 mg DAILY PO 10/25/24 10:00 10/26/24 10:05 5 MG Aspirin 81 mg DAILY PO 10/25/24 10:00 10/26/24 10:05 81 MG Folic Acid 1 mg DAILY PO 10/25/24 10:00 10/26/24 10:05 1 MG Multivitamins 1 tab DAILY PO 10/25/24 10:00 10/26/24 10:06 1 TAB Melatonin 5 mg HS PO 10/25/24 22:00 10/25/24 22:53 5 MG Linezolid 300 ml @ 150 mls/hr Q12H IV 10/25/24 17:00 10/26/24 04:22 150 MLS/HR Amino Acids 0 ml @ 0 mls/hr PER PHARMACY IV 10/25/24 16:45 Amino Acids 1,000 ml @ 41 mls/hr DAILY@2200 IV 10/25/24 22:00 10/26/24 21:59 10/25/24 22:57 41 MLS/HR Diagnostic Test (Pha) 1 strip Q6HR 10/26/24 00:00 10/26/24 12:00 1 STRIP Insulin Human Regular FOLLOW SLIDING SCALE Q6HR SC 10/26/24 00:00 10/26/24 12:02 2 UNITS Dextrose 50 ml UD IV 10/25/24 18:15 Sodium Acetate 40 meq/Potassium Acetate 20 meq/ Potassium Phosphate 22 meq/ Magnesium Sulfate 8 meq/ Multivitamins 10 ml/Amino Acids/ Dextrose/Fat Emulsion Intravenous/ Purified Water 1,097 ml @ 45 mls/hr [id number] IV 10/26/24 22:00 10/27/24 21:59 objective Abdomen is soft no tenderness has decreased no rigidity no guarding Lipase level is decreased laboratory and microbiology Laboratory Tests 10/26/24 10:13 10/25/24 07:03 Test 10/26/24 10:13 Range/Units Serum Glucose 131 H 74-106 mg/dL Assessment/Plan 78-year-old female with a history of coronary artery disease hypertension arthritis with pancreatic mass for which with obstructive jaundice for which she had stent placement at [facility] with pancreatic head mass biopsies the biopsy results are pending At present has complaints of weakness tiredness and some abdominal bloating and fullness No hematemesis melena no fever chills or symptoms of cholangitis LFTs slightly increased status post stent Patient is much better today lipase levels with decreased abdominal pains Plans Continue to observe closely We will recommend referral back to [facility] or [facility] or [facility] as the patient wants for further treatment including evaluation of the biopsy reports and further treatment including if possible Whipple's Dietary Evaluation Review Comments: 1)Consider d/c clinimix at this time as pts meeds estimated needs with PO intake 2)Continue current diet regime 3)If PO intake <75%, consider adding Ensure HP BID to increase PO intake Expected Outcomes/Goals: Pt will continue to consume >75% of estimated needs within 2-3 days Plan discussed with: Patient SALOMON WOOTEN MD Oct 26, 2024 14:51
[2024-10-26] MEDS: TPN PER PHARMACY IV NR (22:08)
[2024-10-26] MEDS: ACETAMINOPHEN 325 MG TAB PO PRN (22:30)
[2024-10-27] VITALS (7 sets, daily range): BP systolic 124–144; BP diastolic 63–76; PULSE 78–92; RESP 16–20; TEMP 97.3–98.1; O2SAT 94–99
[2024-10-27 11:45] LABS: Anion Gap 7 (5-15); BUN/Creatinine Ratio 34.9 (10.0-20.0); Blood Urea Nitrogen 15 mg/dL (9-23); Calcium 9.2 mg/dL (8.7-10.4); Carbon Dioxide 23 mmol/L (20-31); Chloride 105 mmol/L (98-107); Magnesium 1.7 mg/dL (1.6-2.6); Phosphorus 2.6 mg/dL (2.4-5.1)
[2024-10-27 11:46] LABS: Alanine Aminotransferase 101 U/L (7-40); Albumin 3.1 g/dL (3.2-4.8); Aspartate Aminotransferase 100 U/L (13-40); Bilirubin, Total 1.1 mg/dL (0.2-1.0); Glucose 149 mg/dL (74-106); Potassium 3.5 mmol/L (3.5-5.1); Sodium 135 mmol/L (136-145)
[2024-10-27 12:01] LABS: Alkaline Phosphatase 1053 U/L (46-116)
[2024-10-27] MEDS: TPN PER PHARMACY IV NR (22:02)
[2024-10-28] VITALS (8 sets, daily range): BP systolic 123–155; BP diastolic 61–77; PULSE 78–97; RESP 16–20; TEMP 97.5–98.6; O2SAT 94–98
[2024-10-28 07:22] LABS: Anion Gap 8 (5-15); BUN/Creatinine Ratio 31.9 (10.0-20.0); Blood Urea Nitrogen 15 mg/dL (9-23); Carbon Dioxide 21 mmol/L (20-31); Chloride 104 mmol/L (98-107); Magnesium 1.8 mg/dL (1.6-2.6); Potassium 3.8 mmol/L (3.5-5.1)
[2024-10-28 07:23] LABS: Bilirubin, Total 0.9 mg/dL (0.2-1.0); Phosphorus 3.3 mg/dL (2.4-5.1); Total Protein 5.8 g/dL (5.7-8.2)
[2024-10-28 07:28] LABS: Alanine Aminotransferase 95 U/L (7-40); Alkaline Phosphatase 895 U/L (46-116); Aspartate Aminotransferase 83 U/L (13-40); Glucose 206 mg/dL (74-106); Sodium 133 mmol/L (136-145)
--- NOTE | 2024-10-28 10:33 | DVHPN2 ---
Progress Note Date Seen: Oct 28, 2024 Medical Necessity Reason Pt with a Central, PICC or Fol: No Subjective Patient reports: No new complaints Review of Systems: HEENT:Normal, CVS:Normal, RESPIRATORY:Normal, GI:Normal, :Normal, MSK:Normal, NEURO:Normal Objective vital signs Vital Sign Date Time Temp Pulse Resp B/P (MAP) Pulse Ox O2 Delivery O2 Flow Rate FiO2 10/28/24 09:14 123/64 10/28/24 09:13 78 10/28/24 05:00 97.6 19 94 97.6 10/27/24 20:00 Room Air* 0 21 Total Intake and Output 10/27/24 10/27/24 10/28/24 15:00 23:00 07:00 Intake Total 2332 ml 1090 ml Output Total 200 ml Balance 2332 ml 890 ml medications Current Medications Medications Dose Ordered Sig/Keven Route Start Time Stop Time Status Last Admin Dose Admin Sodium Chloride 1,000 ml @ 60 mls/hr [id number] IV 10/24/24 22:15 10/26/24 07:36 60 MLS/HR Acetaminophen/ Hydrocodone Bitart 1 tab Q4HP PRN PO 10/24/24 22:15 Ondansetron HCl 4 mg Q4HP PRN IV 10/24/24 22:15 Docusate Sodium 100 mg BIDPRN PRN PO 10/24/24 22:15 Acetaminophen 650 mg Q6HP PRN PO 10/24/24 22:15 10/26/24 22:30 650 MG Nitroglycerin 0.4 mg Q5MINP PRN SL 10/24/24 22:15 Morphine Sulfate 2 mg Q30M PRN IV 10/24/24 22:15 Hold Carvedilol 3.125 mg Q12HR PO 10/25/24 10:00 10/28/24 09:13 3.125 MG Hydralazine HCl 10 mg Q6HP PRN IV 10/24/24 22:15 10/25/24 01:48 10 MG Amlodipine Besylate 5 mg DAILY PO 10/25/24 10:00 10/28/24 09:14 5 MG Aspirin 81 mg DAILY PO 10/25/24 10:00 10/28/24 09:12 81 MG Folic Acid 1 mg DAILY PO 10/25/24 10:00 10/28/24 09:12 1 MG Multivitamins 1 tab DAILY PO 10/25/24 10:00 10/28/24 09:13 1 TAB Melatonin 5 mg HS PO 10/25/24 22:00 10/27/24 21:58 5 MG Linezolid 300 ml @ 150 mls/hr Q12H IV 10/25/24 17:00 10/28/24 05:03 150 MLS/HR Amino Acids 0 ml @ 0 mls/hr PER PHARMACY IV 10/25/24 16:45 Diagnostic Test (Pha) 1 strip Q6HR 10/26/24 00:00 10/28/24 05:33 1 STRIP Insulin Human Regular FOLLOW SLIDING SCALE Q6HR SC 10/26/24 00:00 10/28/24 05:35 4 UNITS Dextrose 50 ml UD IV 10/25/24 18:15 Fat Emulsion Intravenous 50 ml/ Sodium Acetate 40 meq/Potassium Chloride 20 meq/ Potassium Phosphate 28.6 meq/Magnesium Sulfate 12 meq/ Multivitamins 10 ml/Amino Acids/ Dextrose/Purified Water 1,199.5 ml @ 50 mls/hr Q24H IV 10/27/24 22:00 10/28/24 21:59 10/27/24 22:02 50 MLS/HR Fat Emulsion Intravenous 100 ml/Sodium Acetate 60 meq/Potassium Chloride 20 meq/ Potassium Phosphate 22 meq/ Magnesium Sulfate 16 meq/ Multivitamins 10 ml/Chromium/ Copper/Manganese/ Zinc 1 ml/Insulin Human Regular 4 units/Amino Acids/ Dextrose/Purified Water 1,460.04 ml @ 61 mls/hr [id number] IV 10/28/24 22:00 10/29/24 21:59 Examination: GENERAL:Normal, HEENT:Normal, NECK:Normal, LUNGS:Normal, CVS:Normal, ABDOMEN:Normal, MSK:Normal, SKIN:Normal, NEURO:Normal, :Normal laboratory and microbiology Laboratory Tests 10/28/24 06:02 10/25/24 07:03 Test 10/28/24 06:02 Range/Units Serum Glucose 206 H 74-106 mg/dL Microbiology Date/Time Source Procedure Growth Status 10/24/24 21:00 Nose MRSA Screen - Final Complete Problem List/Assessment/Plan Problem List/Assessment/Plan #1 pancreatic mass s/p ercp/stent: await path #2 Status post fall. #3 vre sepsis :repeat cultures, zyvox #4 Rheumatoid arthritis. #5 Hypertension. #6 History of coronary artery with stent. #7 Anemia. #8 Cholelithiasis. #9 Acute cerebrovascular accident. *#10 Carotid stenosis #11 transaminitis advance care planning- time spent 19 mins. Plan discussed with: Patient, Spouse, Daughter Dietary Evaluation Review Comments: 1)Consider d/c clinimix at this time as pts meeds estimated needs with PO intake 2)Continue current diet regime 3)If PO intake <75%, consider adding Ensure HP BID to increase PO intake Expected Outcomes/Goals: Pt will continue to consume >75% of estimated needs within 2-3 days Date of Service: Oct 28, 2024 Billing Provider: ELÍAS CYR MD Common Visit Codes: [id number] INP/OBS CARE(HIGH) Secondary Visit Codes: [id number] CARE PLAN 30 MINUTES ELÍAS CYR MD Oct 28, 2024 10:33
--- NOTE | 2024-10-28 13:05 | DVHPN2 ---
Progress Note - Dictate Date Seen: Sep 25, 2025 Medical Necessity Reason Pt with a Central, PICC or Fol: No Subjective PT WITH PANCREATIC MASS S/P STENT S/P BIOPSY MEEDS WHIPPLE PROCEDURE IF BIOPSYS CONSISTENT WITH MALIGNANCY LETHARGY WEAKNESS HAD A FALL BECAUSE OF WEAKNESS SEEN IN CLINIC ABOUT 5 DAYS AGO FOR SAME IV FLUID WITH MVI WAS GIVEN WITH ABX AND STEROIDS NOW WITH LEUKOCYTOSIS CT OF HEAD WITH POSSIBLE MASS PMH HTN LABILE vital signs Vital Sign Date Time Temp Pulse Resp B/P (MAP) Pulse Ox O2 Delivery O2 Flow Rate FiO2 10/28/24 09:14 123/64 10/28/24 09:13 78 10/28/24 09:00 98.2 19 98 98.2 10/27/24 20:00 Room Air* 0 21 Total Intake and Output 10/27/24 10/27/24 10/28/24 15:00 23:00 07:00 Intake Total 2332 ml 1090 ml Output Total 200 ml Balance 2332 ml 890 ml medications Current Medications Medications Dose Ordered Sig/Keven Route Start Time Stop Time Status Last Admin Dose Admin Acetaminophen/ Hydrocodone Bitart 1 tab Q4HP PRN PO 10/24/24 22:15 Ondansetron HCl 4 mg Q4HP PRN IV 10/24/24 22:15 Docusate Sodium 100 mg BIDPRN PRN PO 10/24/24 22:15 Acetaminophen 650 mg Q6HP PRN PO 10/24/24 22:15 10/26/24 22:30 650 MG Nitroglycerin 0.4 mg Q5MINP PRN SL 10/24/24 22:15 Morphine Sulfate 2 mg Q30M PRN IV 10/24/24 22:15 Hold Carvedilol 3.125 mg Q12HR PO 10/25/24 10:00 10/28/24 09:13 3.125 MG Hydralazine HCl 10 mg Q6HP PRN IV 10/24/24 22:15 10/25/24 01:48 10 MG Amlodipine Besylate 5 mg DAILY PO 10/25/24 10:00 10/28/24 09:14 5 MG Aspirin 81 mg DAILY PO 10/25/24 10:00 10/28/24 09:12 81 MG Folic Acid 1 mg DAILY PO 10/25/24 10:00 10/28/24 09:12 1 MG Multivitamins 1 tab DAILY PO 10/25/24 10:00 10/28/24 09:13 1 TAB Melatonin 5 mg HS PO 10/25/24 22:00 10/27/24 21:58 5 MG Linezolid 300 ml @ 150 mls/hr Q12H IV 10/25/24 17:00 10/28/24 05:03 150 MLS/HR Amino Acids 0 ml @ 0 mls/hr PER PHARMACY IV 10/25/24 16:45 Diagnostic Test (Pha) 1 strip Q6HR 10/26/24 00:00 10/28/24 12:24 1 STRIP Insulin Human Regular FOLLOW SLIDING SCALE Q6HR SC 10/26/24 00:00 10/28/24 12:33 4 UNITS Dextrose 50 ml UD IV 10/25/24 18:15 Fat Emulsion Intravenous 50 ml/ Sodium Acetate 40 meq/Potassium Chloride 20 meq/ Potassium Phosphate 28.6 meq/Magnesium Sulfate 12 meq/ Multivitamins 10 ml/Amino Acids/ Dextrose/Purified Water 1,199.5 ml @ 50 mls/hr Q24H IV 10/27/24 22:00 10/28/24 21:59 10/27/24 22:02 50 MLS/HR Fat Emulsion Intravenous 100 ml/Sodium Acetate 60 meq/Potassium Chloride 20 meq/ Potassium Phosphate 22 meq/ Magnesium Sulfate 16 meq/ Multivitamins 10 ml/Chromium/ Copper/Manganese/ Zinc 1 ml/Insulin Human Regular 4 units/Amino Acids/ Dextrose/Purified Water 1,460.04 ml @ 61 mls/hr [id number] IV 10/28/24 22:00 10/29/24 21:59 laboratory and microbiology Laboratory Tests 10/28/24 06:02 10/25/24 07:03 Test 10/28/24 06:02 Range/Units Serum Glucose 206 H 74-106 mg/dL Problem List PANCREATIC MASS VRE BACTEREMIA Assessment/Plan LETHARGY WEAKNESS HAD A FALL BECAUSE OF WEAKNESS SEEN IN CLINIC ABOUT 5 DAYS AGO FOR SAME IV FLUID WITH MVI WAS GIVEN WITH ABX AND STEROIDS NOW WITH LEUKOCYTOSIS CT OF HEAD WITH POSSIBLE MASS HTN LABILE PT S/P COMMON DUCT STENTING OBSTRUCTIVE PANCREATIC MASS NOW TRANSFERRED BACK FROM [facility] [place] WHEN STABLE START VRE TPN Dietary Evaluation Review Comments: 1)Consider d/c clinimix at this time as pts meeds estimated needs with PO intake 2)Continue current diet regime 3)If PO intake <75%, consider adding Ensure HP BID to increase PO intake Expected Outcomes/Goals: Pt will continue to consume >75% of estimated needs within 2-3 days Plan discussed with: Patient Critical Care Time(min): 35 JOSE ANGEL HALE MD Oct 28, 2024 13:05
--- NOTE | 2024-10-28 13:07 | DVHPN2 ---
Progress Note - Dictate Date Seen: Oct 28, 2024 Medical Necessity Reason Pt with a Central, PICC or Fol: No Subjective PT WITH PANCREATIC MASS S/P STENT S/P BIOPSY MEEDS WHIPPLE PROCEDURE IF BIOPSYS CONSISTENT WITH MALIGNANCY LETHARGY WEAKNESS HAD A FALL BECAUSE OF WEAKNESS SEEN IN CLINIC ABOUT 5 DAYS AGO FOR SAME IV FLUID WITH MVI WAS GIVEN WITH ABX AND STEROIDS NOW WITH LEUKOCYTOSIS CT OF HEAD WITH POSSIBLE MASS PMH HTN LABILE vital signs Vital Sign Date Time Temp Pulse Resp B/P (MAP) Pulse Ox O2 Delivery O2 Flow Rate FiO2 10/28/24 09:14 123/64 10/28/24 09:13 78 10/28/24 09:00 98.2 19 98 98.2 10/27/24 20:00 Room Air* 0 21 Total Intake and Output 10/27/24 10/27/24 10/28/24 15:00 23:00 07:00 Intake Total 2332 ml 1090 ml Output Total 200 ml Balance 2332 ml 890 ml medications Current Medications Medications Dose Ordered Sig/Keven Route Start Time Stop Time Status Last Admin Dose Admin Acetaminophen/ Hydrocodone Bitart 1 tab Q4HP PRN PO 10/24/24 22:15 Ondansetron HCl 4 mg Q4HP PRN IV 10/24/24 22:15 Docusate Sodium 100 mg BIDPRN PRN PO 10/24/24 22:15 Acetaminophen 650 mg Q6HP PRN PO 10/24/24 22:15 10/26/24 22:30 650 MG Nitroglycerin 0.4 mg Q5MINP PRN SL 10/24/24 22:15 Morphine Sulfate 2 mg Q30M PRN IV 10/24/24 22:15 Hold Carvedilol 3.125 mg Q12HR PO 10/25/24 10:00 10/28/24 09:13 3.125 MG Hydralazine HCl 10 mg Q6HP PRN IV 10/24/24 22:15 10/25/24 01:48 10 MG Amlodipine Besylate 5 mg DAILY PO 10/25/24 10:00 10/28/24 09:14 5 MG Aspirin 81 mg DAILY PO 10/25/24 10:00 10/28/24 09:12 81 MG Folic Acid 1 mg DAILY PO 10/25/24 10:00 10/28/24 09:12 1 MG Multivitamins 1 tab DAILY PO 10/25/24 10:00 10/28/24 09:13 1 TAB Melatonin 5 mg HS PO 10/25/24 22:00 10/27/24 21:58 5 MG Linezolid 300 ml @ 150 mls/hr Q12H IV 10/25/24 17:00 10/28/24 05:03 150 MLS/HR Amino Acids 0 ml @ 0 mls/hr PER PHARMACY IV 10/25/24 16:45 Diagnostic Test (Pha) 1 strip Q6HR 10/26/24 00:00 10/28/24 12:24 1 STRIP Insulin Human Regular FOLLOW SLIDING SCALE Q6HR SC 10/26/24 00:00 10/28/24 12:33 4 UNITS Dextrose 50 ml UD IV 10/25/24 18:15 Fat Emulsion Intravenous 50 ml/ Sodium Acetate 40 meq/Potassium Chloride 20 meq/ Potassium Phosphate 28.6 meq/Magnesium Sulfate 12 meq/ Multivitamins 10 ml/Amino Acids/ Dextrose/Purified Water 1,199.5 ml @ 50 mls/hr Q24H IV 10/27/24 22:00 10/28/24 21:59 10/27/24 22:02 50 MLS/HR Fat Emulsion Intravenous 100 ml/Sodium Acetate 60 meq/Potassium Chloride 20 meq/ Potassium Phosphate 22 meq/ Magnesium Sulfate 16 meq/ Multivitamins 10 ml/Chromium/ Copper/Manganese/ Zinc 1 ml/Insulin Human Regular 4 units/Amino Acids/ Dextrose/Purified Water 1,460.04 ml @ 61 mls/hr [id number] IV 10/28/24 22:00 10/29/24 21:59 laboratory and microbiology Laboratory Tests 10/28/24 06:02 10/25/24 07:03 Test 10/28/24 06:02 Range/Units Serum Glucose 206 H 74-106 mg/dL Problem List PANCREATIC MASS VRE BACTEREMIA Assessment/Plan LETHARGY WEAKNESS HAD A FALL BECAUSE OF WEAKNESS SEEN IN CLINIC ABOUT 5 DAYS AGO FOR SAME IV FLUID WITH MVI WAS GIVEN WITH ABX AND STEROIDS NOW WITH LEUKOCYTOSIS CT OF HEAD WITH POSSIBLE MASS HTN LABILE PT S/P COMMON DUCT STENTING OBSTRUCTIVE PANCREATIC MASS NOW TRANSFERRED BACK FROM [place] [facility] [place] WHEN STABLE START VRE TPN LFTs ARE TRENDING DOWN DC IN AM CONT TPN Dietary Evaluation Review Comments: 1)Consider d/c clinimix at this time as pts meeds estimated needs with PO intake 2)Continue current diet regime 3)If PO intake <75%, consider adding Ensure HP BID to increase PO intake Expected Outcomes/Goals: Pt will continue to consume >75% of estimated needs within 2-3 days Plan discussed with: Patient Critical Care Time(min): 35 JOSE ANGEL HALE MD Oct 28, 2024 13:07
[2024-10-28 17:12] LABS: Urine Bacteria None Seen /hpf (None Seen)
[2024-10-28 17:37] LABS: Urine Blood Negative /uL (Negative); Urine Clarity Clear (Clear); Urine Color Light-Yellow (Yellow); Urine Protein, UAD Negative (Negative); Urine Specific Gravity 1.007 (1.001-1.035); Urine Squamous Epithelial Cell None Seen /hpf (<5); Urine Urobilinogen Normal (Negative); Urine WBC 47 /hpf (0 - 5)
[2024-10-28] MEDS: TPN PER PHARMACY IV NR (21:17)
[2024-10-29 01:00] VITALS: BP 131/72; PULSE 85; RESP 18; TEMP 98.6; O2SAT 96
[2024-10-29 05:00] VITALS: BP 128/70; PULSE 80; RESP 18; TEMP 98.4; O2SAT 96
[2024-10-29 08:17] LABS: Hematocrit 28.3 % (36.0-46.0); Hemoglobin 9.6 g/dL (12.2-16.2); Mean Corpuscular Hemoglobin 32.5 pg (28.0-32.0); Mean Corpuscular Hgb Conc. 33.7 g/dL (32.0-36.0); Mean Corpuscular Volume 96.4 fL (80.0-100.0); Platelet Count (auto) 262 10^3/uL (140-450); Red Blood Cells 2.94 10^6/uL (4.0-5.20); Red Cell Distribution Width 16.3 % (11.8-14.3)
[2024-10-29 08:23] LABS: Calcium 9.1 mg/dL (8.7-10.4); Carbon Dioxide 24 mmol/L (20-31); Chloride 103 mmol/L (98-107)
[2024-10-29 08:24] LABS: Anion Gap 7 (5-15); BUN/Creatinine Ratio 44.9 (10.0-20.0); Bilirubin, Total 0.8 mg/dL (0.2-1.0); Blood Urea Nitrogen 22 mg/dL (9-23); Phosphorus 3.3 mg/dL (2.4-5.1)
[2024-10-29 08:28] LABS: Band Neutrophils % (manual) 0; Basophils % (manual) 0 (0.0-2.0); Blast Cells 0; Myelocytes % 0; Promyelocytes % 0; Reactive Lymphocytes 0
[2024-10-29 08:37] LABS: Alanine Aminotransferase 94 U/L (7-40); Albumin 3.1 g/dL (3.2-4.8); Alkaline Phosphatase 765 U/L (46-116); Aspartate Aminotransferase 74 U/L (13-40); Glucose 213 mg/dL (74-106); Sodium 134 mmol/L (136-145)
[2024-10-29 09:00] VITALS: BP 145/71; PULSE 89; RESP 17; TEMP 97.5; O2SAT 97
[2024-10-29 09:15] LABS: Eosinophils % (manual) 10 (0-7); Lymphocytes % (manual) 8 (10.0-50.0); Metamyelocytes % 2; Monocytes % (manual) 12 (0-12); Platelet Estimate Adequate
--- NOTE | 2024-10-29 09:39 | DVHPN2 ---
Progress Note Date Seen: Oct 29, 2024 Medical Necessity Reason Pt with a Central, PICC or Fol: No Subjective Patient reports: No new complaints Review of Systems: HEENT:Normal, CVS:Normal, RESPIRATORY:Normal, GI:Normal, :Normal, MSK:Normal, NEURO:Normal Objective vital signs Vital Sign Date Time Temp Pulse Resp B/P (MAP) Pulse Ox O2 Delivery O2 Flow Rate FiO2 10/29/24 05:00 98.4 80 18 128/70 (89) 96 98.4 10/28/24 20:00 Room Air* 0 21 Total Intake and Output 10/28/24 10/28/24 10/29/24 15:00 23:00 07:00 Intake Total 624 ml 924 ml 700 ml Output Total 200 ml Balance 624 ml 924 ml 500 ml medications Current Medications Medications Dose Ordered Sig/Keven Route Start Time Stop Time Status Last Admin Dose Admin Acetaminophen/ Hydrocodone Bitart 1 tab Q4HP PRN PO 10/24/24 22:15 Ondansetron HCl 4 mg Q4HP PRN IV 10/24/24 22:15 Docusate Sodium 100 mg BIDPRN PRN PO 10/24/24 22:15 Acetaminophen 650 mg Q6HP PRN PO 10/24/24 22:15 10/28/24 20:06 650 MG Nitroglycerin 0.4 mg Q5MINP PRN SL 10/24/24 22:15 Morphine Sulfate 2 mg Q30M PRN IV 10/24/24 22:15 Hold Carvedilol 3.125 mg Q12HR PO 10/25/24 10:00 10/28/24 21:08 3.125 MG Hydralazine HCl 10 mg Q6HP PRN IV 10/24/24 22:15 10/25/24 01:48 10 MG Amlodipine Besylate 5 mg DAILY PO 10/25/24 10:00 10/28/24 09:14 5 MG Aspirin 81 mg DAILY PO 10/25/24 10:00 10/28/24 09:12 81 MG Folic Acid 1 mg DAILY PO 10/25/24 10:00 10/28/24 09:12 1 MG Multivitamins 1 tab DAILY PO 10/25/24 10:00 10/28/24 09:13 1 TAB Melatonin 5 mg HS PO 10/25/24 22:00 10/28/24 21:10 5 MG Linezolid 300 ml @ 150 mls/hr Q12H IV 10/25/24 17:00 10/29/24 04:36 150 MLS/HR Amino Acids 0 ml @ 0 mls/hr PER PHARMACY IV 10/25/24 16:45 Diagnostic Test (Pha) 1 strip Q6HR 10/26/24 00:00 10/29/24 05:50 1 STRIP Insulin Human Regular FOLLOW SLIDING SCALE Q6HR SC 10/26/24 00:00 10/29/24 05:55 8 UNITS Dextrose 50 ml UD IV 10/25/24 18:15 Fat Emulsion Intravenous 100 ml/Sodium Acetate 60 meq/Potassium Chloride 20 meq/ Potassium Phosphate 22 meq/ Magnesium Sulfate 16 meq/ Multivitamins 10 ml/Chromium/ Copper/Manganese/ Zinc 1 ml/Insulin Human Regular 4 units/Amino Acids/ Dextrose/Purified Water 1,460.04 ml @ 61 mls/hr [id number] IV 10/28/24 22:00 10/29/24 21:59 10/28/24 21:17 61 MLS/HR Examination: GENERAL:Normal, HEENT:Normal, NECK:Normal, LUNGS:Normal, CVS:Normal, ABDOMEN:Normal, MSK:Normal, SKIN:Normal, NEURO:Normal, :Normal laboratory and microbiology Laboratory Tests 10/29/24 06:51 Test 10/29/24 06:51 Range/Units Serum Glucose 213 H 74-106 mg/dL Microbiology Date/Time Source Procedure Growth Status 10/24/24 21:00 Nose MRSA Screen - Final Complete Problem List/Assessment/Plan Problem List/Assessment/Plan #1 pancreatic mass s/p ercp/stent: path non diagnostic #2 Status post fall. #3 vre sepsis :repeat cultures, zyvox #4 Rheumatoid arthritis. #5 Hypertension. #6 History of coronary artery with stent. #7 Anemia. #8 Cholelithiasis. #9 Acute cerebrovascular accident. *#10 Carotid stenosis #11 transaminitis advance care planning- time spent 19 mins. Plan discussed with: Patient, Daughter My Orders My Orders Orders - ELÍAS CYR MD Procedure Category Date Status Time Blood Culture BERNARDINO 10/28/24 In Process 10:28 * Bag Machine Helper CONS 10/29/24 Transmitted Consult Comprehensive LAB 10/30/24 Verified Metabolic Panel 06:00 Dietary Evaluation Review Comments: 1)Consider d/c clinimix at this time as pts meeds estimated needs with PO intake 2)Continue current diet regime 3)If PO intake <75%, consider adding Ensure HP BID to increase PO intake Expected Outcomes/Goals: Pt will continue to consume >75% of estimated needs within 2-3 days Date of Service: Oct 29, 2024 Billing Provider: ELÍAS CYR MD Common Visit Codes: [id number] INP/OBS CARE(HIGH) ELÍAS CYR MD Oct 29, 2024 09:39
--- NOTE | 2024-10-29 10:27 | DVHPN2 ---
Progress Note - Dictate Date Seen: Oct 29, 2024 Medical Necessity Reason Pt with a Central, PICC or Fol: No Subjective PT WITH PANCREATIC MASS S/P STENT S/P BIOPSY MEEDS WHIPPLE PROCEDURE IF BIOPSYS CONSISTENT WITH MALIGNANCY LETHARGY WEAKNESS HAD A FALL BECAUSE OF WEAKNESS SEEN IN CLINIC ABOUT 5 DAYS AGO FOR SAME IV FLUID WITH MVI WAS GIVEN WITH ABX AND STEROIDS NOW WITH LEUKOCYTOSIS CT OF HEAD WITH POSSIBLE MASS PMH HTN LABILE vital signs Vital Sign Date Time Temp Pulse Resp B/P (MAP) Pulse Ox O2 Delivery O2 Flow Rate FiO2 10/29/24 10:17 145/71 10/29/24 10:17 89 10/29/24 09:00 97.5 17 97 97.5 10/28/24 20:00 Room Air* 0 21 Total Intake and Output 10/28/24 10/28/24 10/29/24 15:00 23:00 07:00 Intake Total 624 ml 924 ml 700 ml Output Total 200 ml Balance 624 ml 924 ml 500 ml medications Current Medications Medications Dose Ordered Sig/Keven Route Start Time Stop Time Status Last Admin Dose Admin Acetaminophen/ Hydrocodone Bitart 1 tab Q4HP PRN PO 10/24/24 22:15 Ondansetron HCl 4 mg Q4HP PRN IV 10/24/24 22:15 Docusate Sodium 100 mg BIDPRN PRN PO 10/24/24 22:15 Acetaminophen 650 mg Q6HP PRN PO 10/24/24 22:15 10/28/24 20:06 650 MG Nitroglycerin 0.4 mg Q5MINP PRN SL 10/24/24 22:15 Morphine Sulfate 2 mg Q30M PRN IV 10/24/24 22:15 Hold Carvedilol 3.125 mg Q12HR PO 10/25/24 10:00 10/29/24 10:17 3.125 MG Hydralazine HCl 10 mg Q6HP PRN IV 10/24/24 22:15 10/25/24 01:48 10 MG Amlodipine Besylate 5 mg DAILY PO 10/25/24 10:00 10/29/24 10:17 5 MG Aspirin 81 mg DAILY PO 10/25/24 10:00 10/29/24 10:18 81 MG Folic Acid 1 mg DAILY PO 10/25/24 10:00 10/29/24 10:17 1 MG Multivitamins 1 tab DAILY PO 10/25/24 10:00 10/29/24 10:16 1 TAB Melatonin 5 mg HS PO 10/25/24 22:00 10/28/24 21:10 5 MG Linezolid 300 ml @ 150 mls/hr Q12H IV 10/25/24 17:00 10/29/24 04:36 150 MLS/HR Diagnostic Test (Pha) 1 strip Q6HR 10/26/24 00:00 10/29/24 05:50 1 STRIP Insulin Human Regular FOLLOW SLIDING SCALE Q6HR SC 10/26/24 00:00 10/29/24 05:55 8 UNITS Dextrose 50 ml UD IV 10/25/24 18:15 laboratory and microbiology Laboratory Tests 10/29/24 06:51 Test 10/29/24 06:51 Range/Units Serum Glucose 213 H 74-106 mg/dL Problem List PANCREATIC MASS VRE BACTEREMIA Assessment/Plan LETHARGY WEAKNESS HAD A FALL BECAUSE OF WEAKNESS SEEN IN CLINIC ABOUT 5 DAYS AGO FOR SAME IV FLUID WITH MVI WAS GIVEN WITH ABX AND STEROIDS NOW WITH LEUKOCYTOSIS CT OF HEAD WITH POSSIBLE MASS HTN LABILE PT S/P COMMON DUCT STENTING OBSTRUCTIVE PANCREATIC MASS NOW TRANSFERRED BACK FROM [place] [facility] [place] WHEN STABLE START VRE TPN LFTs ARE TRENDING DOWN DC IN AM CONT TPN Dietary Evaluation Review Comments: 1)Consider d/c clinimix at this time as pts meeds estimated needs with PO intake 2)Continue current diet regime 3)If PO intake <75%, consider adding Ensure HP BID to increase PO intake Expected Outcomes/Goals: Pt will continue to consume >75% of estimated needs within 2-3 days Plan discussed with: Patient JOSE ANGEL HALE MD Oct 29, 2024 10:26
[2024-10-29 13:13] VITALS: BP 139/68; PULSE 89; RESP 17; TEMP 97.2; O2SAT 96
[2024-10-29 17:00] VITALS: BP 141/68; PULSE 89; RESP 17; TEMP 97.1; O2SAT 97
[2024-10-29 23:37] VITALS: BP 106/67; PULSE 83; RESP 17; TEMP 97.5; O2SAT 96
[2024-10-30 01:26] VITALS: BP 152/78; PULSE 87; RESP 18; TEMP 98; O2SAT 95
[2024-10-30 05:33] VITALS: BP 124/79; PULSE 85; RESP 16; TEMP 97.5; O2SAT 97
[2024-10-30 09:04] VITALS: BP 142/85; PULSE 81; RESP 16; TEMP 97.5; O2SAT 98
[2024-10-30] MEDS ORDERED: ASPI-498 PO (10:12)
[2024-10-30] MEDS ORDERED: EZET10TA22 PO (10:12)
--- NOTE | 2024-10-30 10:13 | DVHDS2 ---
Discharge Summary Date of Admission Oct 24, 2024 at 20:16 Date of Discharge: Oct 30, 2024 Labs/Diagnostic Data: Laboratory Results Test 10/30/24 09:07 10/29/24 12:12 10/29/24 06:51 10/28/24 16:20 POC Glucose 179 mg/dl (70-106) White Blood Count 10.0 10^3/uL (4.4-10.8) Red Blood Count 2.94 10^6/uL (4.0-5.20) Hemoglobin 9.6 g/dL (12.2-16.2) Hematocrit 28.3 % (36.0-46.0) Mean Corpuscular Volume 96.4 fL (80.0-100.0) Mean Corpuscular Hemoglobin 32.5 pg (28.0-32.0) Mean Corpuscular Hemoglobin Concent 33.7 g/dL (32.0-36.0) Red Cell Distribution Width 16.3 % (11.8-14.3) Platelet Count 262 10^3/uL (140-450) Mean Platelet Volume 8.3 fL (6.9-10.8) Neutrophils (%) (Auto) % (37.0-80.0) Lymphocytes (%) (Auto) % (10.0-50.0) Monocytes (%) (Auto) % (0.0-12.0) Basophils (%) (Auto) % (0.0-2.0) Neutrophils # (Auto) 10 ^3/uL (1.6-8.6) Lymphocytes # (Auto) 10 ^3/uL (0.4-5.4) Monocytes # (Auto) 10 ^3/uL (0-1.3) Differential Total Cells Counted 100.0 (100) Neutrophils % (Manual) 68 (37.0-80.0) Band Neutrophils % (Manual) 0 Lymphocytes % (Manual) 8 (10.0-50.0) Monocytes % (Manual) 12 (0-12) Eosinophils % (Manual) 10 (0-7) Basophils % (Manual) 0 (0.0-2.0) Metamyelocytes % (manual) 2 Myelocytes % (Manual) 0 Promyelocytes % (Manual) 0 Blast Cells % (Manual) 0 Reactive Lymphocytes 0 Platelet Estimate Adequate Phosphorus Level 3.3 mg/dL (2.4-5.1) Magnesium Level 2.0 mg/dL (1.6-2.6) Urine Color Light-yellow (Yellow) Urine Clarity Clear (Clear) Urine pH 7.0 (5.0-9.0) Urine Specific [place] 1.007 (1.001-1.035) Urine Protein Negative (Negative) Urine Ketones Negative (Negative) Urine Blood Negative /uL (Negative) Urine Nitrite Negative (Negative) Urine Bilirubin Negative (Negative) Urine Urobilinogen Normal mg/dL (Negative) Urine Leukocyte Esterase 3+ /uL (Negative) Urine RBC 1 /hpf (0 - 4) Urine WBC 47 /hpf (0 - 5) Urine Squamous Epithelial Cells None seen /hpf (<5) Urine Bacteria None seen /hpf (None Seen) Urine Glucose Normal mg/dL (Normal) Test 10/26/24 10:13 10/25/24 07:03 Triglycerides Level 121 mg/dL (< 150) Eosinophils (%) (Auto) 3.4 % (0.0-7.0) Eosinophils # (Auto) 0.3 10 ^3/uL (0-0.8) Basophils # (Auto) 0 10 ^3/uL (0-0.2) Nucleated Red Blood Cells 0.1 % Amylase Level 36 U/L (30-118) Lipase 41 U/L (12-53) Other Laboratory Tests 10/29/24 06:51 Brief Hx & Hospital Course: SEE DICTATED NOTE Condition at Discharge: Fair Final Diagnosis/Problems List ABD PAIN Discharge Disposition: Home with Health Services Discharge Instruct/Medications Diet: Cardiac 2g Na,low cholest Activity: No Restrictions, As Tolerated Follow Up/Referral: FU WITH [facility] Medications: RESUME HOME MEDS ASA/ZETIA Discharge Statement: "Patient was advised to return to the ER or call 911 if any headaches, dizziness, shortness of breath, chest pain, abdominal pain, bleeding, fevers, or worsening of medical condition. Patient was counseled about treatment plan, medications, possible side effects, patientverbalized understanding. All questions were answered to the best of my ability. This discharge took greater then 30 minutes in planning, reviewing documentation, counseling the patient, and discussing with other team members." ASSESSMENT ASSESSMENT Assessment ABD PAIN Date of Service: Oct 30, 2024 Billing Provider: ELÍAS CYR MD Common Visit Codes: [id number] DISCH DAY >30min ELÍAS CYR MD Oct 30, 2024 10:13
--- NOTE | 2024-10-30 10:22 | DVHDS ---
DATE OF DISCHARGE: 10/30/2024 HISTORY OF PRESENT ILLNESS: The patient is an 78-year-old lady who was transferred from [facility] after she underwent ERCP. The patient has history of coronary artery disease, hypertension, rheumatoid arthritis, recent CVA, gallstones and a recent diagnosis of pancreatic duct narrowing. HOSPITAL COURSE: The patient was seen in Cardiology consult by Dr. Howard. The patient had repeat blood cultures that have so far been negative. The patient's liver function tests have continued to improve. The patient's hemoglobin at time of discharge is 9.6. The patient will be discharged if not accepted by [facility], to resume her home medications as well as to be on aspirin 81 mg daily and Zetia 10 mg daily, since SHE IS ALLERGIC TO STATINS. She will follow up with BOGDAN Cage in [facility] for likely repeat ERCP since the prior ERCP was nondiagnostic. The patient is status post pancreatic duct stent placement. FINAL DIAGNOSES: Therefore, * Pancreatic mass, questionably malignant, status post ERCP and stent placement. * History of fall. * History of VRE sepsis. * Rheumatoid arthritis. * Hypertension. * History of coronary artery disease with stent. * Anemia. * Gallstones. * Carotid stenosis. * Acute cerebrovascular accident. Time spent in discharge planning and review of plan with the patient, family, social services assistant and nursing was 41 minutes. MD CHIARA Mon/LEONEL TID: [id number] RECEIPT: [id number]
[2024-10-30 10:35] LABS: Alanine Aminotransferase 101 U/L (7-40); Albumin 3.5 g/dL (3.2-4.8); Alkaline Phosphatase 722 U/L (46-116); Anion Gap 8 (5-15); Aspartate Aminotransferase 85 U/L (13-40); Bilirubin, Total 0.9 mg/dL (0.2-1.0); Blood Urea Nitrogen 15 mg/dL (9-23); Calcium 9.5 mg/dL (8.7-10.4); Carbon Dioxide 22 mmol/L (20-31); Chloride 101 mmol/L (98-107); Glucose 173 mg/dL (74-106); Potassium 3.9 mmol/L (3.5-5.1); Sodium 131 mmol/L (136-145); Total Protein 6.5 g/dL (5.7-8.2)
[2024-10-30 10:39] LABS: BUN/Creatinine Ratio 26.8 (10.0-20.0)
[2024-10-30 12:30] VITALS: BP 135/77; PULSE 94; RESP 16; TEMP 97.3; O2SAT 97
--- NOTE | 2024-10-30 12:51 | DVHPN2 ---
Progress Note - Dictate Date Seen: Oct 30, 2024 Medical Necessity Reason Pt with a Central, PICC or Fol: No Subjective PT WITH PANCREATIC MASS S/P STENT S/P BIOPSY MEEDS WHIPPLE PROCEDURE IF BIOPSYS CONSISTENT WITH MALIGNANCY LETHARGY WEAKNESS HAD A FALL BECAUSE OF WEAKNESS SEEN IN CLINIC ABOUT 5 DAYS AGO FOR SAME IV FLUID WITH MVI WAS GIVEN WITH ABX AND STEROIDS NOW WITH LEUKOCYTOSIS CT OF HEAD WITH POSSIBLE MASS PMH HTN LABILE vital signs Vital Sign Date Time Temp Pulse Resp B/P (MAP) Pulse Ox O2 Delivery O2 Flow Rate FiO2 10/30/24 11:00 133/68 10/30/24 10:59 89 10/30/24 09:04 97.5 16 98 97.5 10/30/24 08:00 Room Air* 0 21 Total Intake and Output 10/29/24 10/29/24 10/30/24 15:00 23:00 07:00 Intake Total 800 ml 725 ml 400 ml Balance 800 ml 725 ml 400 ml medications Current Medications Medications Dose Ordered Sig/Keven Route Start Time Stop Time Status Last Admin Dose Admin Acetaminophen/ Hydrocodone Bitart 1 tab Q4HP PRN PO 10/24/24 22:15 Ondansetron HCl 4 mg Q4HP PRN IV 10/24/24 22:15 Docusate Sodium 100 mg BIDPRN PRN PO 10/24/24 22:15 Acetaminophen 650 mg Q6HP PRN PO 10/24/24 22:15 10/29/24 16:44 650 MG Nitroglycerin 0.4 mg Q5MINP PRN SL 10/24/24 22:15 Morphine Sulfate 2 mg Q30M PRN IV 10/24/24 22:15 Hold Carvedilol 3.125 mg Q12HR PO 10/25/24 10:00 10/30/24 10:59 3.125 MG Hydralazine HCl 10 mg Q6HP PRN IV 10/24/24 22:15 10/25/24 01:48 10 MG Amlodipine Besylate 5 mg DAILY PO 10/25/24 10:00 10/30/24 11:00 5 MG Aspirin 81 mg DAILY PO 10/25/24 10:00 10/30/24 11:01 81 MG Folic Acid 1 mg DAILY PO 10/25/24 10:00 10/30/24 11:01 1 MG Multivitamins 1 tab DAILY PO 10/25/24 10:00 10/30/24 11:01 1 TAB Melatonin 5 mg HS PO 10/25/24 22:00 10/29/24 21:40 5 MG Linezolid 300 ml @ 150 mls/hr Q12H IV 10/25/24 17:00 10/30/24 04:44 150 MLS/HR Dextrose 50 ml UD IV 10/25/24 18:15 laboratory and microbiology Laboratory Tests 10/30/24 09:07 10/29/24 06:51 Test 10/30/24 09:07 Range/Units Serum Glucose 173 H 74-106 mg/dL Problem List PANCREATIC MASS VRE BACTEREMIA Assessment/Plan LETHARGY WEAKNESS HAD A FALL BECAUSE OF WEAKNESS SEEN IN CLINIC ABOUT 5 DAYS AGO FOR SAME IV FLUID WITH MVI WAS GIVEN WITH ABX AND STEROIDS NOW WITH LEUKOCYTOSIS CT OF HEAD WITH POSSIBLE MASS HTN LABILE PT S/P COMMON DUCT STENTING OBSTRUCTIVE PANCREATIC MASS NOW TRANSFERRED BACK FROM [place] SUPPORTIVE CARE DC WHEN STABLE START VRE TPN LFTs ARE TRENDING DOWN DC IN AM CONT TPN BIOPSY INCONCLUSIVE/ IN ADEQUATE SAMPLING TRANSFER TO [facility] Dietary Evaluation Review Comments: 1)Consider d/c clinimix at this time as pts meeds estimated needs with PO intake 2)Continue current diet regime 3)If PO intake <75%, consider adding Ensure HP BID to increase PO intake Expected Outcomes/Goals: Pt will continue to consume >75% of estimated needs within 2-3 days Plan discussed with: Patient Critical Care Time(min): 35 JOSE ANGEL HALE MD Oct 30, 2024 12:51
--- NOTE | 2024-10-30 12:53 | DVHPN2 ---
Progress Note - Dictate Date Seen: Oct 27, 2024 Medical Necessity Reason Pt with a Central, PICC or Fol: No Subjective PT WITH PANCREATIC MASS S/P STENT S/P BIOPSY MEEDS WHIPPLE PROCEDURE IF BIOPSYS CONSISTENT WITH MALIGNANCY LETHARGY WEAKNESS HAD A FALL BECAUSE OF WEAKNESS SEEN IN CLINIC ABOUT 5 DAYS AGO FOR SAME IV FLUID WITH MVI WAS GIVEN WITH ABX AND STEROIDS NOW WITH LEUKOCYTOSIS CT OF HEAD WITH POSSIBLE MASS PMH HTN LABILE vital signs Vital Sign Date Time Temp Pulse Resp B/P (MAP) Pulse Ox O2 Delivery O2 Flow Rate FiO2 10/30/24 11:00 133/68 10/30/24 10:59 89 10/30/24 09:04 97.5 16 98 97.5 10/30/24 08:00 Room Air* 0 21 Total Intake and Output 10/29/24 10/29/24 10/30/24 15:00 23:00 07:00 Intake Total 800 ml 725 ml 400 ml Balance 800 ml 725 ml 400 ml medications Current Medications Medications Dose Ordered Sig/Keven Route Start Time Stop Time Status Last Admin Dose Admin Acetaminophen/ Hydrocodone Bitart 1 tab Q4HP PRN PO 10/24/24 22:15 Ondansetron HCl 4 mg Q4HP PRN IV 10/24/24 22:15 Docusate Sodium 100 mg BIDPRN PRN PO 10/24/24 22:15 Acetaminophen 650 mg Q6HP PRN PO 10/24/24 22:15 10/29/24 16:44 650 MG Nitroglycerin 0.4 mg Q5MINP PRN SL 10/24/24 22:15 Morphine Sulfate 2 mg Q30M PRN IV 10/24/24 22:15 Hold Carvedilol 3.125 mg Q12HR PO 10/25/24 10:00 10/30/24 10:59 3.125 MG Hydralazine HCl 10 mg Q6HP PRN IV 10/24/24 22:15 10/25/24 01:48 10 MG Amlodipine Besylate 5 mg DAILY PO 10/25/24 10:00 10/30/24 11:00 5 MG Aspirin 81 mg DAILY PO 10/25/24 10:00 10/30/24 11:01 81 MG Folic Acid 1 mg DAILY PO 10/25/24 10:00 10/30/24 11:01 1 MG Multivitamins 1 tab DAILY PO 10/25/24 10:00 10/30/24 11:01 1 TAB Melatonin 5 mg HS PO 10/25/24 22:00 10/29/24 21:40 5 MG Linezolid 300 ml @ 150 mls/hr Q12H IV 10/25/24 17:00 10/30/24 04:44 150 MLS/HR Dextrose 50 ml UD IV 10/25/24 18:15 laboratory and microbiology Laboratory Tests 10/30/24 09:07 10/29/24 06:51 Test 10/30/24 09:07 Range/Units Serum Glucose 173 H 74-106 mg/dL Problem List PANCREATIC MASS VRE BACTEREMIA Assessment/Plan LETHARGY WEAKNESS HAD A FALL BECAUSE OF WEAKNESS SEEN IN CLINIC ABOUT 5 DAYS AGO FOR SAME IV FLUID WITH MVI WAS GIVEN WITH ABX AND STEROIDS NOW WITH LEUKOCYTOSIS CT OF HEAD WITH POSSIBLE MASS HTN LABILE PT S/P COMMON DUCT STENTING OBSTRUCTIVE PANCREATIC MASS NOW TRANSFERRED BACK FROM [facility] SUPPORTIVE CARE DC WHEN STABLE START VRE TPN LFTs ARE TRENDING DOWN DC IN AM CONT TPN BIOPSY INCONCLUSIVE/ IN ADEQUATE SAMPLING TRANSFER TO [facility] Dietary Evaluation Review Comments: 1)Consider d/c clinimix at this time as pts meeds estimated needs with PO intake 2)Continue current diet regime 3)If PO intake <75%, consider adding Ensure HP BID to increase PO intake Expected Outcomes/Goals: Pt will continue to consume >75% of estimated needs within 2-3 days Plan discussed with: Patient, Spouse, Daughter Critical Care Time(min): 35 JOSE ANGEL HALE MD Oct 30, 2024 12:53
== END 2024-10-30 15:50 | disposition home health service (06) | DRG 65 ==
LOC: CENTRAL 20:16
PROVIDERS: ADMIT Internal Medicine; ATTEND Internal Medicine
DX: I63.9 Cerebral infarction, unspecified (principal); C25.9 Malignant neoplasm of pancreas, unspecified; K86.9 Disease of pancreas, unspecified; I10 Essential (primary) hypertension; I65.23 Occlusion and stenosis of bilateral carotid arteries; M06.9 Rheumatoid arthritis, unspecified; R74.01 Elevation of levels of liver transaminase levels; D64.9 Anemia, unspecified; K80.20 Calculus of gallbladder without cholecystitis without obstruction; Z88.1 Allergy status to other antibiotic agents; Z95.5 Presence of coronary angioplasty implant and graft; Z86.73 Personal history of transient ischemic attack (TIA), and cerebral infarction without residual deficits; Z79.899 Other long term (current) drug therapy
CPT/HCPCS: 36415; 80053; 81001; 82150; 82962; 83690; 83735; 84100; 84478; 85007; 85025; 85027; 87040; 87081; 97110; 97116; 97163; 97530; G0378; J1815

== ENCOUNTER 2024-12-08 03:35 | Inpatient (IN) | payer MEDICARE, BC ==
[~2024-12-08] VITALS: Ht 160 cm; Wt 63.1 kg
[~2024-12-08 03:35] MED LIST changes: +ASPI-498 PO; +EZET10TA22 PO; +FOLI-119 PO; -FOLITAB22 PO; -HYDR-4491 PO; +HYDR200T36; -METH2.5T PO; +METO-289 PO; -METO25TA93 PO; +POTA-180 PO; -POTA-36 PO
--- NOTE | 2024-12-08 04:20 | ED.PDOC ---
History of Present Illness HPI Comments 78 y/o F, with a history of anemia, rheumatoid arthritis, CAD, pancreatic cancer, CVA, gallstones, and HTN, is BIBA for c/o dizziness, today. Per EMS report, patient called after having a sudden dizziness onset of a few minutes in duration, while walking to use her bathroom, this morning. Her vitals were noted to have been stable and within normal limits on scene and en route. Upon arrival to ED, patient's dizziness was commented to have subsided and only reports chronic abdominal pain secondary to her pancreatic cancer. Patient denies having any nausea, vomiting, vision or speech changes, weakness, or other associated symptoms or modifiers at this time. Chief Complaint: Dizziness Time Seen by MD: 04:00 Primary Care Provider: JOSE ANGEL Reviewed Notes: Nurses Notes, Database Reporting Consultant Notes, Medications, Allergies Allergies: Coded Allergies: Ciprofloxacin (Verified Allergy, Unknown, 02/21/18) Iodine (Verified Allergy, Unknown, 06/23/17) Simvastatin (Verified Allergy, Unknown, 10/10/24) BONE PAIN Sulfa Antibiotics (Verified Allergy, Unknown, 06/23/17) Home Meds Active Scripts Ezetimibe (Zetia) 10 Mg Tab, 10 MG PO DAILY for 30 Days, #30 TAB 3 Refills Prov:ELÍAS CYR MD 10/30/24 Aspirin (ASPIRIN 81) 81 Mg Tab, 81 MG PO DAILY for 30 Days, #30 TAB 3 Refills Prov:ELÍAS CYR MD 10/30/24 Reported Medications Hydroxychloroquine Sulfate (Hydroxychloroquine Sulfat) 200 Mg Tab, 1 TAB DAILY 10/24/24 Potassium Chloride (Potassium Chloride ER) 20 Meq Tab, 1 TAB PO DAILY 10/24/24 Folic Acid (Folic Acid) 1 Mg Tab, 1 TAB PO DAILY 10/24/24 Metoprolol Succinate (Metoprolol Succinate Er) 50 Mg Tab, 1 TAB PO DAILY 10/24/24 Magnesium Chloride (Slow-Mag) Tab, 2 TAB PO DAILY, TAB 10/08/24 Linseed Oil (Flax Seed Oil) 1,000 Mg Cap, 1000 MG PO, CAP 10/08/24 Cholecalciferol (VITAMIN D3) 2,000 Unit Tab, 1 TAB PO DAILY, #30 TAB 5 Refills 10/08/24 Ibuprofen Micronized (MOTRIN TABLET) 600 Mg Tb, 600 MG PO TID, #40 TAB *Black box warning-NSAIDS can increase risk of VA & hypertension, GI irritation, ulceration, bleed, perferation. Do not use post cardiac surgery. Use short duration/lowest effective dose. 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 OPERATOR Hx Family History Family History: Unknown Social History Smoker: Non-Smoker Alcohol: Denies ETOH Use Drugs: Denies Drug Use Lives In: Home All Other Systems: Reviewed and Negative Physical Exam General Appearance: Mild Distress, No Apparent Distress, Normal, Other (el jimmy, discheveled appearing ) HEENT: Normal ENT Inspection, Pharynx Normal, TMs Normal Neck: Full Range of Motion, Non-Tender, Normal, Normal Inspection Respiratory: Chest Non-Tender, Lungs Clear, No Accessory Muscle Use, No Respiratory Distress, Normal Breath Sounds Cardiovascular: No Edema, No JVD, No Murmur, No Gallop, Normal Peripheral Pulses, Other (borderline tachycardia but regular rhythm) Breast Exam: Deferred Gastrointestinal: No Organomegaly, Non Tender, No Pulsatile Mass, Normal Bowel Sounds, Soft Genitalia: Deferred Pelvic: Deferred Rectal: Deferred Extremities: No calf tenderness, Normal capillary refill, Normal inspection, Normal range of motion, Non-tender, No pedal edema Musculoskeletal : Apperance: Normal Neurologic: Alert, parts cleaner II-XII nml as Tested, No Motor Deficits, Normal Affect, Normal Mood, No Sensory Deficits Cerebellar Function: Normal Reflexes: Normal Skin: Dry, Normal Color, Warm Lymphatic: No Adenopathy Was a procedure done? Was a procedure done?: No Differential Dx Considerations may include: Pneumonia, viral syndrome, electrolyte abnormality, ACS X-Ray, Labs, Meds, VS Vital Signs Date Time Temp Pulse Resp B/P (MAP) Pulse Ox O2 Delivery O2 Flow Rate FiO2 12/08/24 07:35 86 16 99 Nasal Cannula* 2 28 12/08/24 07:30 98.2 86 16 127/73 (91) 99 98.2 12/08/24 05:08 Nasal Cannula* 2 28 12/08/24 05:08 99.5 102 18 92/51 (65) 96 99.5 12/08/24 03:35 99.5 104 18 114/68 (83) 94 Lab Test 12/08/24 06:10 12/08/24 04:28 12/08/24 04:21 Range/Units Lactic Acid Level 1.9 2.7 *H 0.4-2.0 mmol/L Troponin I High Sensitivity 9 9 </=34 ng/L Urine Color Light-yellow Yellow Urine Clarity Turbid H Clear Urine pH 5.5 5.0-9.0 Urine Specific [place] 1.012 1.001-1.035 Urine Protein Negative Negative Urine Ketones Negative Negative Urine Blood Negative Negative /uL Urine Nitrite Negative Negative Urine Bilirubin Negative Negative Urine Urobilinogen Normal Negative mg/dL Urine Leukocyte Esterase 2+ Negative /uL Urine RBC 2 0 - 4 /hpf Urine Microscopic WBC 17 H 0-5 /HPF Urine Squamous Epithelial Cells Few <5 /hpf Urine Bacteria Few H None Seen /hpf Urine Mucus Few None Seen Urine Glucose Normal Normal mg/dL White Blood Count 16.3 H 4.4-10.8 10^3/uL Red Blood Count 4.32 4.0-5.20 10^6/uL Hemoglobin 13.5 12.2-16.2 g/dL Hematocrit 40.6 36.0-46.0 % Mean Corpuscular Volume 94.0 80.0-100.0 fL Mean Corpuscular Hemoglobin 31.1 28.0-32.0 pg Mean Corpuscular Hemoglobin Concent 33.1 32.0-36.0 g/dL Red Cell Distribution Width 15.8 H 11.8-14.3 % Platelet Count 298 140-450 10^3/uL Mean Platelet Volume 8.4 6.9-10.8 fL Neutrophils (%) (Auto) 86.3 H 37.0-80.0 % Lymphocytes (%) (Auto) 5.9 L 10.0-50.0 % Monocytes (%) (Auto) 6.4 0.0-12.0 % Eosinophils (%) (Auto) 0.9 0.0-7.0 % Basophils (%) (Auto) 0.5 0.0-2.0 % Neutrophils # (Auto) 14.1 H 1.6-8.6 10 ^3/uL Lymphocytes # (Auto) 1.0 0.4-5.4 10 ^3/uL Monocytes # (Auto) 1.1 0-1.3 10 ^3/uL Eosinophils # (Auto) 0.2 0-0.8 10 ^3/uL Basophils # (Auto) 0.1 0-0.2 10 ^3/uL Nucleated Red Blood Cells 0.1 % Prothrombin Time 10.4 9.3-11.8 sec Prothrombin Time INR 0.98 0.9-1.15 Activated Partial Thromboplast Time 24.8 24.5-34.5 SEC D-Dimer, Quantitative 2.30 H 0.0-0.49 mg/L FEU Sodium Level 137 136-145 mmol/L Potassium Level 3.4 L 3.5-5.1 mmol/L Chloride Level 104 98-107 mmol/L Carbon Dioxide Level 21 20-31 mmol/L Anion Gap 12 5-15 Blood Urea Nitrogen 14 9-23 mg/dL Creatinine 0.89 0.550-1.02 mg/dL Glomerular Filtration Rate Calc 66 >90 mL/min BUN/Creatinine Ratio 15.7 10.0-20.0 Serum Glucose 136 H 74-106 mg/dL Calcium Level 11.0 H 8.7-10.4 mg/dL Magnesium Level 1.6 1.6-2.6 mg/dL Total Bilirubin 0.7 0.2-1.0 mg/dL Aspartate Amino Transferase (AST) 217 H 13-40 U/L Alanine Aminotransferase (ALT) 135 H 7-40 U/L Alkaline Phosphatase 304 H 46-116 U/L Total Protein 7.6 5.7-8.2 g/dL Albumin 4.7 3.2-4.8 g/dL Current Medications Medications (Trade) Dose Ordered Sig/Keven Route Start Time Stop Time Status Last Admin Sodium Chloride 500 ml @ 500 mls/hr Q1H ONCE IV 12/08/24 04:00 12/08/24 04:59 DC 12/08/24 04:35 Diphenhydramine HCl (Benadryl Injection) 25 mg ONCE ONCE IV 12/08/24 06:00 12/08/24 06:01 DC 12/08/24 05:59 Methylprednisolone Sodium Succinate (Solu Medrol) 80 mg ONCE ONCE IV 12/08/24 06:00 12/08/24 06:01 DC 12/08/24 05:58 Time of 1ST Reevaluation: 07:58 Reevaluation 1ST: Improved Patient Education/Counseling: Diagnosis, Treatment Family Education/Counseling: No Family Present Departure 1 Departure Time of Disposition: 07:58 (Patient with pneumonia and on CT scan and shortness of breath. We will admit patient for further workup) Impression: Primary Impression: Atypical pneumonia Additional Impressions: Shortness of breath Generalized weakness Disposition: 09 ADMITTED INPATIENT Admit to: Med Surg Condition: Serious Critical Care Note Critical Care Time?: No Stability Stability form required: No Heart Score Heart Score: Heart Score Response (Comments) Value History N/A 0 EKG N/A 0 Age N/A 0 Risk Factors N/A 0 Troponin N/A 0 Total 0 I personally scribed for AVINASH ELLIOTT MD ([email or web address]) on 12/08/24 at 04:20. Electronically submitted by Chino Graves [email or web address]). AVINASH ELLIOTT MD Dec 08, 2024 04:20 LEYLA PARADA MD Dec 08, 2024 07:59
--- NOTE | 2024-12-08 04:30 | DVH ---
EXAM: CT HEAD WITHOUT CONTRAST HISTORY: vertigo COMPARISON: CT HEAD WITHOUT CONTRAST on DOS: 10/09/24 TECHNIQUE: Noncontrast axial CT images of the head were performed. Sagittal and coronal reformatted images were obtained. This CT exam was performed using 1 or more of the following dose reduction techniques: Au tomated exposure control, adjustment of the mA and/or kv according to patient size, or the use of ite rative reconstruction techniques. Radiation Dose : Head: CT Dose: CTDI volume is 53.29 mGy. Dose-length product is 1048.63 mGy*cm FINDINGS: No intracranial hemorrhage, mass, midline shift, hydrocephalus, or evidence of acute large vessel inf arct. There is an old right parietal lobe infarct. There is moderate to severe decreased attenuation in the periventricular and bicerebral white matter. There are thick atherosclerotic calcifications o f the cavernous iCAs. There are postoperative changes of bilateral cataract extraction surgery. The re is mild mucosal thickening of the right maxillary sinus. There is frothy material in the right sp henoid sinus. The bilateral mastoid air cells and middle ear spaces are clear. No cranial fracture or scalp edema. IMPRESSION: 1. Global brain atrophy and chronic ischemic changes without evidence of acute intracranial process. 2. Right sphenoid and maxillary sinus disease.
[2024-12-08] MEDS: SODIUM CHLORIDE 0.9% 500 ML IV ONE (04:35)
[2024-12-08 04:42] LABS: Basophils # (auto) 0.1 10 ^3/uL (0-0.2); Basophils % (auto) 0.5 % (0.0-2.0); Eosinophils # (auto) 0.2 10 ^3/uL (0-0.8); Eosinophils % (auto) 0.9 % (0.0-7.0); Hematocrit 40.6 % (36.0-46.0); Hemoglobin 13.5 g/dL (12.2-16.2); Lymphocytes % (auto) 5.9 % (10.0-50.0); Mean Corpuscular Hemoglobin 31.1 pg (28.0-32.0); Mean Corpuscular Hgb Conc. 33.1 g/dL (32.0-36.0); Monocytes # (auto) 1.1 10 ^3/uL (0-1.3); Monocytes % (auto) 6.4 % (0.0-12.0); Neutrophils # (auto) 14.1 10 ^3/uL (1.6-8.6); Neutrophils % (auto) 86.3 % (37.0-80.0); Nucleated Red Blood Cells % 0.1 %; Platelet Count (auto) 298 10^3/uL (140-450); Red Blood Cells 4.32 10^6/uL (4.0-5.20); Red Cell Distribution Width 15.8 % (11.8-14.3); White Blood Cell 16.3 10^3/uL (4.4-10.8)
[2024-12-08 04:54] LABS: Alanine Aminotransferase 135 U/L (7-40); Albumin 4.7 g/dL (3.2-4.8); Alkaline Phosphatase 304 U/L (46-116); Anion Gap 12 (5-15); Aspartate Aminotransferase 217 U/L (13-40); BUN/Creatinine Ratio 15.7 (10.0-20.0); Bilirubin, Total 0.7 mg/dL (0.2-1.0); Blood Urea Nitrogen 14 mg/dL (9-23); Carbon Dioxide 21 mmol/L (20-31); Chloride 104 mmol/L (98-107); Glucose 136 mg/dL (74-106); Magnesium 1.6 mg/dL (1.6-2.6); Potassium 3.4 mmol/L (3.5-5.1); Sodium 137 mmol/L (136-145); Total Protein 7.6 g/dL (5.7-8.2)
[2024-12-08 05:04] LABS: INR 0.98 (0.9-1.15); Partial Thromboplastin Time 24.8 SEC (24.5-34.5); Prothrombin Time 10.4 sec (9.3-11.8)
[2024-12-08 05:19] LABS: Lactic Acid w/Reflex 2.7 mmol/L (0.4-2.0)
--- NOTE | 2024-12-08 05:50 | DVH ---
EXAM: XY CHEST PORTABLE HISTORY: chest pain COMPARISON: XY CHEST PORTABLE on DOS: 10/13/24, XY CHEST PORTABLE on DOS: 10/09/24 TECHNIQUE: Portable upright AP view of the chest was performed. FINDINGS: No pneumothorax, consolidative infiltrates, or pulmonary edema. The heart is enlarged. Aortic arch is calcific. IMPRESSION: 1. No acute intrathoracic process. 2. Cardiomegaly and atherosclerotic vascular disease.
[2024-12-08] MEDS: methylPREDNISolone SOD SUCC 125 MG/2 ML VL IV ONE (05:58)
[2024-12-08] MEDS: diphenhdrAMINE HCL 50 MG/1 ML VL IV ONE (05:59)
[2024-12-08 06:13] LABS: Urine Bacteria FEW /hpf (None Seen); Urine Blood Negative /uL (Negative); Urine Clarity Turbid (Clear); Urine Color Light-Yellow (Yellow); Urine Mucus FEW (None Seen); Urine Protein, UAD Negative (Negative); Urine Specific Gravity 1.012 (1.001-1.035); Urine Squamous Epithelial Cell FEW /hpf (<5); Urine Urobilinogen Normal (Negative); Urine WBC 17 /HPF (0-5); Urine pH 5.5 (5.0-9.0)
[2024-12-08] MEDS: IOHEXOL 350 MG/ML 100ML IJ ONE (06:35)
--- NOTE | 2024-12-08 07:05 | DVH ---
EXAM: CT CT ANGIO CHEST CONTRAST HISTORY: near syncope elevated d-dimer r/o PE COMPARISON: Chest x-ray from earlier same day. Radiation Dose : Chest: CTDI volume is 8.92 mGy. Dose-length product is 324.33 mGy*cm TECHNIQUE: Helical CT images of the chest were performed with IV contrast using pulmonary CTA protoco l. Sagittal and coronal reformatted images and 3D MIP images were obtained. This CT exam was performe d using 1 or more of the following dose reduction techniques: Automated exposure control, adjustment of the mA and/or kv according to patient size, or the use of iterative reconstruction techniques. FINDINGS: No pulmonary arterial filling defects are identified. There are patchy and nodular opacitie s in the bilateral lower lobes. There are tracheobronchial calcifications. No pneumothorax. No suspic ious mediastinal or axillary adenopathy. There is a right upper lobe noncalcified pulmonary nodule m easuring 10 mm (image 84, series 5). The heart is nonenlarged. There are coronary artery calcificatio ns. No thoracic aortic aneurysm or dissection. The left vertebral artery arises directly from the aor tic arch. There is moderate thoracic degenerative disc disease. No fractures are identified about the bony thorax. The right humeral head is high-riding and abuts the undersurface of the acromion. Add itionally, the right glenohumeral joint is mildly subluxed anteriorly with narrowed coracohumeral int erval. There are bilateral thyroid nodules. Gallstones are present in the gallbladder, and there is g allbladder wall thickening and hyperemia. There is a common bile duct stent, with associated biliary gas present. The liver is diffusely fatty density. There are thick atherosclerotic calcifications of the upper abdominal aorta and renal artery origins. IMPRESSION: 1. No evidence of pulmonary embolism. 2. Patchy nodular opacities in the bilateral lower lobes likely represent atypical pneumonia. Additio monae, there is a right upper 10 mm noncalcified pulmonary nodule. Recommend follow-up CT scan of th e chest in 6-8 weeks after appropriate antibiotic therapy. If the nodular appearance persistsafter an tibiotic therapy, PET-CT follow-up may be warranted. 3. Cardiomegaly and coronary artery disease. 4. Cholelithiasis with gallbladder wall hyperemia and thickening suggestive of acute cholecystitis. 5. Postoperative changes common bile duct stent with associated biliary gas. The liver is diffusely fatty density. 6.
[2024-12-08 07:35] VITALS: PULSE 86; RESP 16; O2SAT 99
[2024-12-08] MEDS: AZITHROMYCIN 250 MG TAB PO ONE (09:08)
[2024-12-08] MEDS: VANCOMYCIN 1GM/250ML KIT 200 ML IV ONE (09:09)
[2024-12-08] MEDS: CEFEPIME 2GM/50ML NS 50 ML IV ONE (09:09)
[2024-12-08] MEDS ORDERED: SODIUM CHLORIDE 0.9% 1,000 ML IV SCH (12:00)
[2024-12-08] MEDS ORDERED: POTASSIUM CHL 20 Meq TABLET PO ONE (12:00)
[2024-12-08] MEDS ORDERED: ALBUTEROL SULF 2.5 MG/0.5ML(0.5%) NEB SOLN NEB PRN (12:15)
[2024-12-08] MEDS ORDERED: IPRATROPIUM BROM 0.5 MG/2.5ML INH SOL NEB PRN (12:15)
--- NOTE | 2024-12-08 12:28 | DVHHP2 ---
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 The patient reports symptoms started early this morning leading her to call 911. Denies syncope, chest pain, shortness of breath, abdominal pain, or other acute symptoms. In the emergency department, the patient is found to be in sepsis for which broad-spectrum antibiotics and fluid resuscitation was initiated. Past Medical History As stated in HPI Past Surgical History Denies Family History Reviewed, non-contributory to the management of this case. Past Social History The patient lives at home, denies smoking, alcohol or illicit drugs abuse. Review of Systems Constitutional: Yes: Weakness, Malaise; No: Fever, Chills, Sweats, Other Eyes: No: Pain, Vision change, Conjunctivae inflammation, Eyelid inflammation, Other, Redness ENT: No: Ear pain, Ear discharge, Nose pain, Nose discharge, Nose congestion, Mouth pain, Mouth swelling, Throat pain, Throat swelling, Other Respiratory: No: Cough, Dry, Shortness of breath, SOB with excertion, Wheezing, Hemoptysis, Pleuritic Pain, Sputum, Wheezing, Other Cardiovascular: No: Chest Pain, Palpitations, Orthopnea, Paroxysmal Noc. Dyspnea, Edema, Lt Headedness, Other Gastrointestinal: No: Nausea, Vomiting, Abdominal Pain, Diarrhea, Constipation, Melena, Hematochezia, Other Genitourinary: No Dysuria, No Frequency, No Incontinence, No Hematuria, No Retention, No Other Musculoskeletal: No: other, neck pain, shoulder pain, arm pain, back pain, hand pain, leg pain, foot pain Skin: No: Rash, Lesions, Jaundice, Bruising, Other Neurological: No: Weakness, Numbness, Incoordination, Change in speech, Confusion, Seizures, Other Allergies: Coded Allergies: Ciprofloxacin (Verified Allergy, Unknown, 02/21/18) Iodine (Verified Allergy, Unknown, 06/23/17) Simvastatin (Verified Allergy, Unknown, 10/10/24) BONE PAIN Sulfa Antibiotics (Verified Allergy, Unknown, 06/23/17) Exam Vital Signs Vital Signs Date Time Temp Pulse Resp B/P (MAP) Pulse Ox O2 Delivery O2 Flow Rate FiO2 12/08/24 09:49 97.7 79 16 112/43 (66) 99 97.7 12/08/24 07:35 Nasal Cannula* 2 28 General Appearance: Alert, Oriented X3, Cooperative, No acute distress HEENT: Atraumatic, PERRLA, EOMI, Mucous membr. moist/pink Respiratory: Clear to auscultation, Normal air movement Cardiovascular: Regular rate, Normal S1, Normal S2 Abdominal: Normal bowel sounds, Soft, No tenderness Extremities: No clubbing, No cyanosis, No edema, Normal pulses Skin: No rashes, No breakdown, No significant lesion Neuro: Normal gait, Normal speech, Strength at 5/5 X4 ext, Normal tone Psych/Mental Status: Mental status NL Labs/Xrays Labs Test 12/08/24 06:10 12/08/24 04:28 12/08/24 04:21 Range/Units Lactic Acid Level 1.9 0.4-2.0 mmol/L Troponin I High Sensitivity 9 </=34 ng/L Urine Color Light-yellow Yellow Urine Clarity Turbid H Clear Urine pH 5.5 5.0-9.0 Urine Specific [place] 1.012 1.001-1.035 Urine Protein Negative Negative Urine Ketones Negative Negative Urine Blood Negative Negative /uL Urine Nitrite Negative Negative Urine Bilirubin Negative Negative Urine Urobilinogen Normal Negative mg/dL Urine Leukocyte Esterase 2+ Negative /uL Urine RBC 2 0 - 4 /hpf Urine Microscopic WBC 17 H 0-5 /HPF Urine Squamous Epithelial Cells Few <5 /hpf Urine Bacteria Few H None Seen /hpf Urine Mucus Few None Seen Urine Glucose Normal Normal mg/dL White Blood Count 16.3 H 4.4-10.8 10^3/uL Red Blood Count 4.32 4.0-5.20 10^6/uL Hemoglobin 13.5 12.2-16.2 g/dL Hematocrit 40.6 36.0-46.0 % Mean Corpuscular Volume 94.0 80.0-100.0 fL Mean Corpuscular Hemoglobin 31.1 28.0-32.0 pg Mean Corpuscular Hemoglobin Concent 33.1 32.0-36.0 g/dL Red Cell Distribution Width 15.8 H 11.8-14.3 % Platelet Count 298 140-450 10^3/uL Mean Platelet Volume 8.4 6.9-10.8 fL Neutrophils (%) (Auto) 86.3 H 37.0-80.0 % Lymphocytes (%) (Auto) 5.9 L 10.0-50.0 % Monocytes (%) (Auto) 6.4 0.0-12.0 % Eosinophils (%) (Auto) 0.9 0.0-7.0 % Basophils (%) (Auto) 0.5 0.0-2.0 % Neutrophils # (Auto) 14.1 H 1.6-8.6 10 ^3/uL Lymphocytes # (Auto) 1.0 0.4-5.4 10 ^3/uL Monocytes # (Auto) 1.1 0-1.3 10 ^3/uL Eosinophils # (Auto) 0.2 0-0.8 10 ^3/uL Basophils # (Auto) 0.1 0-0.2 10 ^3/uL Nucleated Red Blood Cells 0.1 % Prothrombin Time 10.4 9.3-11.8 sec Prothrombin Time INR 0.98 0.9-1.15 Activated Partial Thromboplast Time 24.8 24.5-34.5 SEC D-Dimer, Quantitative 2.30 H 0.0-0.49 mg/L FEU Sodium Level 137 136-145 mmol/L Potassium Level 3.4 L 3.5-5.1 mmol/L Chloride Level 104 98-107 mmol/L Carbon Dioxide Level 21 20-31 mmol/L Anion Gap 12 5-15 Blood Urea Nitrogen 14 9-23 mg/dL Creatinine 0.89 0.550-1.02 mg/dL Glomerular Filtration Rate Calc 66 >90 mL/min BUN/Creatinine Ratio 15.7 10.0-20.0 Serum Glucose 136 H 74-106 mg/dL Calcium Level 11.0 H 8.7-10.4 mg/dL Magnesium Level 1.6 1.6-2.6 mg/dL Total Bilirubin 0.7 0.2-1.0 mg/dL Aspartate Amino Transferase (AST) 217 H 13-40 U/L Alanine Aminotransferase (ALT) 135 H 7-40 U/L Alkaline Phosphatase 304 H 46-116 U/L Total Protein 7.6 5.7-8.2 g/dL Albumin 4.7 3.2-4.8 g/dL PROCEDURE(s): CTACH - CT ANGIO CHEST CONTRAST REASON: near syncope elevated d-dimer r/o PE ORDER NUMBER(s): [id number], ACCESSION NUMBER(s): [id number] EXAM: CT CT ANGIO CHEST CONTRAST HISTORY: near syncope elevated d-dimer r/o PE COMPARISON: Chest x-ray from earlier same day. Radiation Dose : Chest: CTDI volume is 8.92 mGy. Dose-length product is 324.33 mGy*cm TECHNIQUE: Helical CT images of the chest were performed with IV contrast using pulmonary CTA protocol. Sagittal and coronal reformatted images and 3D MIP images were obtained. This CT exam was performed using 1 or more of the following dose reduction techniques: Automated exposure control, adjustment of the mA and/or kv according to patient size, or the use of iterative reconstruction techniques. FINDINGS: No pulmonary arterial filling defects are identified. There are patchy and nodular opacities in the bilateral lower lobes. There are tracheobronchial calcifications. No pneumothorax. No suspicious mediastinal or axillary adenopathy. There is a right upper lobe noncalcified pulmonary nodule measuring 10 mm (image 84, series 5). The heart is nonenlarged. There are coronary artery calcifications. No thoracic aortic aneurysm or dissection. The left vertebral artery arises directly from the aortic arch. There is moderate thoracic degenerative disc disease. No fractures are identified about the bony thorax. The right humeral head is high-riding and abuts the undersurface of the acromion. Additionally, the right glenohumeral joint is mildly subluxed anteriorly with narrowed coracohumeral interval. There are bilateral thyroid nodules. Gallstones are present in the gallbladder, and there is gallbladder wall thickening and hyperemia. There is a common bile duct stent, with associated biliary gas present. The liver is diffusely fatty density. There are thick atherosclerotic calcifications of the upper abdominal aorta and renal artery origins. IMPRESSION: 1. No evidence of pulmonary embolism. 2. Patchy nodular opacities in the bilateral lower lobes likely represent atypical pneumonia. Additionally, there is a right upper 10 mm noncalcified pulmonary nodule. Recommend follow-up CT scan of the chest in 6-8 weeks after appropriate antibiotic therapy. If the nodular appearance persistsafter antibiotic therapy, PET-CT follow-up may be warranted. 3. Cardiomegaly and coronary artery disease. 4. Cholelithiasis with gallbladder wall hyperemia and thickening suggestive of acute cholecystitis. Assessment/Plan Assessment/Plan # sepsis, likely due to atypical pneumonia and acute UTI # dizziness and generalized weakness likely in the setting of sepsis # hx of VRE sepsis Admit to telemetry unit Broad-spectrum antibiotic Meropenem IV fluid resuscitation and maintenance Blood, sputum and urine culture Chest x-ray in a.m. MedNeb as needed # mild hypokalemia Potassium supplement IV fluid Monitor # pancreatic cancer metastasized to lung--currently not on treatment. # pulmonary nodules # elevated D-dimer, PE ruled out Scheduled up coming appointment with [facility] for treatment plan CTA reviewed # hypertension Metoprolol Hydralazine as needed Monitor # transaminitis Monitor # rheumatoid arthritis Plaquenil # hx of CVA # carotid stenosis # hyperlipidemia zetia, asa Monitor DVT prophylaxis Medical plan discussed with patient and daughter Plan discussed with: Patient, Daughter My Orders Orders - TESS DIXON Procedure Category Date Status Time Admit ADMIT 12/08/24 Verified 11:53 Code Status CODE 12/08/24 Verified 11:53 0.9% Ns 1000 Ml PHA 12/08/24 Verified 12:00 Cardiac DIET 12/08/24 Verified Diet-2gna,Lofat,Lochol Lunch Condition: Serious DANIELITO 12/08/24 Verified 11:53 Complete Blood Count LAB 12/09/24 Verified 04:00 Comprehensive LAB 12/09/24 Verified Metabolic Panel 04:00 Chest Portable XY 12/09/24 Verified 04:00 Meropenem 1gm Ivpb PHA 12/08/24 Verified Q8hr 14:00 Enoxaparin Sodium PHA 12/09/24 Verified (Lovenox) 10:00 Potassium Er Tablet PHA 12/08/24 Verified (Klor-Con Tablet) 12:00 Date of Service: Dec 08, 2024 Billing Provider: TESS DIXON Common Visit Codes: [id number] INP/OBS CARE (HIGH) TESS DIXON Dec 08, 2024 12:28
[2024-12-08] MEDS: Ensure HIGH Protein Vanilla 8oz Bottle PO SCH (12:45)
[2024-12-08] MEDS: POTASSIUM CHL 20 Meq TABLET PO ONE (13:02)
[2024-12-08] MEDS: SODIUM CHLORIDE 0.9% 1,000 ML IV SCH (13:02)
[2024-12-08] MEDS ORDERED: MEROPENEM 1GM IVPB 50 ML IV SCH (14:00)
[2024-12-08 14:03] VITALS: BP 126/63; PULSE 85; RESP 26; O2SAT 99
[2024-12-08] MEDS: MEROPENEM 1GM IVPB 50 ML IV SCH (17:06)
[2024-12-08 19:09] VITALS: O2SAT 98
[2024-12-08 19:30] VITALS: O2SAT 96
[2024-12-08 23:04] VITALS: BP 149/76; PULSE 87; RESP 16; TEMP 97.7; O2SAT 99
[2024-12-09] VITALS (9 sets, daily range): BP systolic 130–152; BP diastolic 61–81; PULSE 71–96; RESP 16–18; TEMP 97–98.2; O2SAT 96–99
[2024-12-09] MEDS: MEROPENEM 1GM IVPB 50 ML IV SCH (01:00)
[2024-12-09] MEDS ORDERED: PANC1CAP PO (01:33)
[2024-12-09 07:37] LABS: Basophils # (auto) 0 10 ^3/uL (0-0.2); Basophils % (auto) 0.1 % (0.0-2.0); Eosinophils # (auto) 0 10 ^3/uL (0-0.8); Hematocrit 33.2 % (36.0-46.0); Hemoglobin 10.9 g/dL (12.2-16.2); Lymphocytes % (auto) 7.3 % (10.0-50.0); Mean Corpuscular Hemoglobin 31.4 pg (28.0-32.0); Mean Corpuscular Hgb Conc. 32.8 g/dL (32.0-36.0); Mean Corpuscular Volume 95.7 fL (80.0-100.0); Monocytes # (auto) 0.7 10 ^3/uL (0-1.3); Monocytes % (auto) 5.7 % (0.0-12.0); Neutrophils # (auto) 11.3 10 ^3/uL (1.6-8.6); Neutrophils % (auto) 86.9 % (37.0-80.0); Platelet Count (auto) 239 10^3/uL (140-450); Red Blood Cells 3.47 10^6/uL (4.0-5.20); White Blood Cell 13.1 10^3/uL (4.4-10.8)
[2024-12-09 07:54] LABS: Albumin 3.9 g/dL (3.2-4.8); Anion Gap 9 (5-15); BUN/Creatinine Ratio 22.7 (10.0-20.0); Blood Urea Nitrogen 15 mg/dL (9-23); Calcium 10.2 mg/dL (8.7-10.4); Carbon Dioxide 22 mmol/L (20-31); Potassium 3.8 mmol/L (3.5-5.1); Sodium 141 mmol/L (136-145); Total Protein 6.3 g/dL (5.7-8.2)
[2024-12-09 08:02] LABS: Alanine Aminotransferase 82 U/L (7-40); Alkaline Phosphatase 176 U/L (46-116); Aspartate Aminotransferase 55 U/L (13-40); Bilirubin, Total 0.3 mg/dL (0.2-1.0); Chloride 110 mmol/L (98-107); Glucose 174 mg/dL (74-106)
--- NOTE | 2024-12-09 08:43 | DVH ---
CHEST RADIOGRAPH Indication: pna Technique: Single frontal view of the chest was obtained Comparison: XY CHEST PORTABLE on DOS: 12/08/24, XY CHEST PORTABLE on DOS: 10/13/24, XY CHEST PORTABLE on DOS: 10/09/24 FINDINGS: Lines and Tubes: None Lungs: No focal consolidation. Pleura: No effusion. No pneumothorax. Cardiomediastinal contours: Unremarkable Bones: No acute osseous abnormality. IMPRESSION: No acute cardiopulmonary disease.
[2024-12-09] MEDS: METOPROLOL SUCCINATE XL 50 MG TAB PO SCH (09:12)
[2024-12-09] MEDS: ASPirin-EC 81 mg tab PO SCH (09:12)
[2024-12-09] MEDS: hydrOXYchloroQUINE SULFATE 200 MG TAB PO SCH (09:13)
[2024-12-09] MEDS: ENOXAPARIN SOD 40 MG/0.4 ML SYRINGE SC SCH (09:13)
[2024-12-09] MEDS: EZETIMIBE 10 MG TAB PO SCH (09:14)
[2024-12-09] MEDS ORDERED: ENOXAPARIN SOD 30 MG/0.3 ML SYRINGE SC SCH (10:00)
--- NOTE | 2024-12-09 11:45 | DVHPN2 ---
Progress Note Date Seen: Dec 09, 2024 Medical Necessity Reason Pt with a Central, PICC or Fol: No Objective vital signs Vital Sign Date Time Temp Pulse Resp B/P (MAP) Pulse Ox O2 Delivery O2 Flow Rate FiO2 12/09/24 09:47 98 Room Air* 0 21 12/09/24 09:12 93 152/77 12/09/24 09:00 97.3 16 97.3 Total Intake and Output 12/08/24 12/08/24 12/09/24 15:00 23:00 07:00 Intake Total 250 ml 240 ml Balance 250 ml 240 ml medications Current Medications Medications Dose Ordered Sig/Keven Route Start Time Stop Time Status Last Admin Dose Admin Albuterol 2.5 mg Q4HPRN PRN NEB 12/08/24 12:15 Ipratropium [place] 0.5 mg Q4HPRN PRN NEB 12/08/24 12:15 Aspirin 81 mg DAILY PO 12/09/24 10:00 12/09/24 09:12 81 MG EZETIMIBE 10 mg DAILY PO 12/09/24 10:00 12/09/24 09:14 10 MG Hydroxychloroquine Sulfate 200 mg DAILY PO 12/09/24 10:00 12/09/24 09:13 200 MG Metoprolol Succinate 50 mg DAILY PO 12/09/24 10:00 12/09/24 09:12 50 MG Enteral Nutritional Formula 240 ml BIDWM PO 12/08/24 12:45 12/09/24 09:15 240 ML Enoxaparin Sodium 40 mg DAILY SC 12/09/24 10:00 12/09/24 09:13 40 MG Sodium Chloride 1,000 ml @ 60 mls/hr [id number] IV 12/08/24 12:15 12/09/24 05:10 60 MLS/HR Meropenem 50 ml @ 17 mls/hr Q8H IV 12/09/24 01:00 12/09/24 09:24 17 MLS/HR laboratory and microbiology Laboratory Tests 12/09/24 06:49 Test 12/09/24 06:49 Range/Units Serum Glucose 174 H 74-106 mg/dL Microbiology Date/Time Source Procedure Growth Status 12/08/24 04:21 Blood Blood Culture - Preliminary Resulted Problem List/Assessment/Plan Problem List/Assessment/Plan * sepsis with ?uti: iv meropenem *Pancreatic cancer status post ERCP and stent placement. * s/p fall. * History of VRE sepsis. * Rheumatoid arthritis. * Hypertension. * History of coronary artery disease with stent. * Anemia. * Gallstones. * Carotid stenosis. * Acute cerebrovascular accident. * lung mass s/p biopsy advance care planning- full code- time spent-19 mins Plan discussed with: Patient, Daughter My Orders My Orders Orders - ELÍAS CRY MD Procedure Category Date Status Time * Cardiology Consult CONS 12/09/24 Verified 11:38 Urine Bacterial BERNARDINO 12/09/24 Verified Culture 11:38 Complete Blood Count LAB 12/10/24 Verified 06:00 Comprehensive LAB 12/10/24 Verified Metabolic Panel 06:00 Date of Service: Dec 09, 2024 Billing Provider: ELÍAS CYR MD Common Visit Codes: [id number] INP/OBS CARE(HIGH) Secondary Visit Codes: [id number] CARE PLAN 30 MINUTES ELÍAS CYR MD Dec 09, 2024 11:45
--- NOTE | 2024-12-09 12:37 | DVHPN2 ---
Progress Note - Dictate Date Seen: Dec 08, 2024 Medical Necessity Reason Pt with a Central, PICC or Fol: No Subjective PT WITH SEPSIS/ UTI PANCREATIC CA S/P STENT ANEMIA GALLSTONES CAROTID STENOSIS HX OF CVA LUNG MASS S/P BOPSY RA CAROTID STENOSIS vital signs Vital Sign Date Time Temp Pulse Resp B/P (MAP) Pulse Ox O2 Delivery O2 Flow Rate FiO2 12/09/24 09:47 98 Room Air* 0 21 12/09/24 09:12 93 152/77 12/09/24 09:00 97.3 16 97.3 Total Intake and Output 12/08/24 12/08/24 12/09/24 15:00 23:00 07:00 Intake Total 250 ml 240 ml Balance 250 ml 240 ml medications Current Medications Medications Dose Ordered Sig/Keven Route Start Time Stop Time Status Last Admin Dose Admin Albuterol 2.5 mg Q4HPRN PRN NEB 12/08/24 12:15 Ipratropium [place] 0.5 mg Q4HPRN PRN NEB 12/08/24 12:15 Aspirin 81 mg DAILY PO 12/09/24 10:00 12/09/24 09:12 81 MG EZETIMIBE 10 mg DAILY PO 12/09/24 10:00 12/09/24 09:14 10 MG Hydroxychloroquine Sulfate 200 mg DAILY PO 12/09/24 10:00 12/09/24 09:13 200 MG Metoprolol Succinate 50 mg DAILY PO 12/09/24 10:00 12/09/24 09:12 50 MG Enteral Nutritional Formula 240 ml BIDWM PO 12/08/24 12:45 12/09/24 09:15 240 ML Enoxaparin Sodium 40 mg DAILY SC 12/09/24 10:00 12/09/24 09:13 40 MG Sodium Chloride 1,000 ml @ 60 mls/hr [id number] IV 12/08/24 12:15 12/09/24 05:10 60 MLS/HR Meropenem 50 ml @ 17 mls/hr Q8H IV 12/09/24 01:00 12/09/24 09:24 17 MLS/HR laboratory and microbiology Laboratory Tests 12/09/24 06:49 Test 12/09/24 06:49 Range/Units Serum Glucose 174 H 74-106 mg/dL Problem List SEPSIS/ UTI PANCREATIC CA S/P STENT ANEMIA GALLSTONES CAROTID STENOSIS HX OF CVA LUNG MASS S/P BOPSY RA CAROTID STENOSIS Assessment/Plan HX OF VRA ABX SX TREATMENT Plan discussed with: Patient JOSE ANGEL HALE MD Dec 09, 2024 12:37
[2024-12-10] VITALS (8 sets, daily range): BP systolic 120–157; BP diastolic 58–82; PULSE 59–105; RESP 16–22; TEMP 97.4–97.5; O2SAT 96–98
[2024-12-10 06:41] LABS: Anion Gap 8 (5-15); BUN/Creatinine Ratio 28.1 (10.0-20.0); Blood Urea Nitrogen 18 mg/dL (9-23); Calcium 10.2 mg/dL (8.7-10.4); Carbon Dioxide 23 mmol/L (20-31); Potassium 3.5 mmol/L (3.5-5.1); Sodium 141 mmol/L (136-145)
[2024-12-10 06:42] LABS: Albumin 3.6 g/dL (3.2-4.8); Aspartate Aminotransferase 30 U/L (13-40); Total Protein 5.8 g/dL (5.7-8.2)
[2024-12-10 06:45] LABS: Alanine Aminotransferase 66 U/L (7-40); Alkaline Phosphatase 135 U/L (46-116); Bilirubin, Total 0.2 mg/dL (0.2-1.0); Chloride 110 mmol/L (98-107); Glucose 119 mg/dL (74-106)
[2024-12-10 06:53] LABS: Basophils # (auto) 0 10 ^3/uL (0-0.2); Basophils % (auto) 0.6 % (0.0-2.0); Eosinophils # (auto) 0.2 10 ^3/uL (0-0.8); Eosinophils % (auto) 2.1 % (0.0-7.0); Hematocrit 31.4 % (36.0-46.0); Hemoglobin 10.5 g/dL (12.2-16.2); Lymphocytes # (auto) 1.9 10 ^3/uL (0.4-5.4); Mean Corpuscular Hemoglobin 31.5 pg (28.0-32.0); Mean Corpuscular Hgb Conc. 33.5 g/dL (32.0-36.0); Monocytes # (auto) 0.5 10 ^3/uL (0-1.3); Monocytes % (auto) 7.2 % (0.0-12.0); Neutrophils # (auto) 4.8 10 ^3/uL (1.6-8.6); Neutrophils % (auto) 64.1 % (37.0-80.0); Nucleated Red Blood Cells % 0.1 %; Platelet Count (auto) 236 10^3/uL (140-450); Red Blood Cells 3.34 10^6/uL (4.0-5.20); Red Cell Distribution Width 15.5 % (11.8-14.3); White Blood Cell 7.4 10^3/uL (4.4-10.8)
--- NOTE | 2024-12-10 10:55 | DVHPN2 ---
Progress Note Date Seen: Dec 10, 2024 Medical Necessity Reason Pt with a Central, PICC or Fol: No Subjective Patient reports: No new complaints Review of Systems: HEENT:Normal, CVS:Normal, RESPIRATORY:Normal, GI:Normal, :Normal, MSK:Normal, NEURO:Normal Objective vital signs Vital Sign Date Time Temp Pulse Resp B/P (MAP) Pulse Ox O2 Delivery O2 Flow Rate FiO2 12/10/24 10:09 71 120/81 12/10/24 09:00 97.4 17 97 97.4 12/10/24 07:18 Room Air* 0 21 Total Intake and Output 12/09/24 12/09/24 12/10/24 15:00 23:00 07:00 Intake Total 50 ml 2610 ml 1540 ml Balance 50 ml 2610 ml 1540 ml medications Current Medications Medications Dose Ordered Sig/Keven Route Start Time Stop Time Status Last Admin Dose Admin Albuterol 2.5 mg Q4HPRN PRN NEB 12/08/24 12:15 Ipratropium [place] 0.5 mg Q4HPRN PRN NEB 12/08/24 12:15 Aspirin 81 mg DAILY PO 12/09/24 10:00 12/09/24 09:12 81 MG EZETIMIBE 10 mg DAILY PO 12/09/24 10:00 12/09/24 09:14 10 MG Hydroxychloroquine Sulfate 200 mg DAILY PO 12/09/24 10:00 12/10/24 10:09 200 MG Metoprolol Succinate 50 mg DAILY PO 12/09/24 10:00 12/10/24 10:09 50 MG Enteral Nutritional Formula 240 ml BIDWM PO 12/08/24 12:45 12/10/24 08:00 240 ML Enoxaparin Sodium 40 mg DAILY SC 12/09/24 10:00 12/10/24 10:09 40 MG Meropenem 50 ml @ 17 mls/hr Q8H IV 12/09/24 01:00 12/10/24 10:09 17 MLS/HR Examination: GENERAL:Normal, HEENT:Normal, NECK:Normal, LUNGS:Normal, CVS:Normal, ABDOMEN:Normal, MSK:Normal, SKIN:Normal, NEURO:Normal, :Normal laboratory and microbiology Laboratory Tests 12/10/24 05:18 Test 12/10/24 05:18 Range/Units Serum Glucose 119 H 74-106 mg/dL Microbiology Date/Time Source Procedure Growth Status 12/08/24 04:21 Blood Blood Culture - Preliminary Resulted Problem List/Assessment/Plan Problem List/Assessment/Plan * sepsis with ?uti: iv meropenem *Pancreatic cancer status post ERCP and stent placement. * s/p fall. * History of VRE sepsis. * Rheumatoid arthritis. * Hypertension. * History of coronary artery disease with stent. * Anemia. * Gallstones. * Carotid stenosis. * Acute cerebrovascular accident. * lung mass s/p biopsy: lung mets advance care planning- full code- time spent-19 mins Plan discussed with: Patient, Spouse, Daughter My Orders My Orders Orders - ELÍAS CYR MD Procedure Category Date Status Time * Cardiology Consult CONS 12/09/24 Transmitted 11:38 Urine Bacterial BERNARDINO 12/09/24 In Process Culture 11:38 Pt Request For Service PT 12/09/24 Logged 12:03 Blood Culture BERNARDINO 12/10/24 Transmitted 10:51 Basic Metabolic Panel LAB 12/11/24 Verified 06:00 Complete Blood Count LAB 12/11/24 Verified 06:00 Discontinue Tele DANIELITO 12/10/24 Verified 10:53 Transfer Orders XFER 12/10/24 Verified 10:53 Date of Service: Dec 10, 2024 Billing Provider: ELÍAS CYR MD Common Visit Codes: [id number] INP/OBS CARE(HIGH) ELÍAS CYR MD Dec 10, 2024 10:55
--- NOTE | 2024-12-10 15:16 | DVHPN2 ---
Progress Note - Dictate Date Seen: Dec 10, 2024 Medical Necessity Reason Pt with a Central, PICC or Fol: No Subjective PT WITH SEPSIS/ UTI PANCREATIC CA S/P STENT ANEMIA GALLSTONES CAROTID STENOSIS HX OF CVA LUNG MASS S/P BOPSY RA CAROTID STENOSIS vital signs Vital Sign Date Time Temp Pulse Resp B/P (MAP) Pulse Ox O2 Delivery O2 Flow Rate FiO2 12/10/24 10:09 71 120/81 12/10/24 09:00 97.4 17 97 97.4 12/10/24 08:00 Room Air* 0 21 Total Intake and Output 12/09/24 12/09/24 12/10/24 15:00 23:00 07:00 Intake Total 50 ml 2610 ml 1540 ml Balance 50 ml 2610 ml 1540 ml medications Current Medications Medications Dose Ordered Sig/Keven Route Start Time Stop Time Status Last Admin Dose Admin Albuterol 2.5 mg Q4HPRN PRN NEB 12/08/24 12:15 Ipratropium [place] 0.5 mg Q4HPRN PRN NEB 12/08/24 12:15 Aspirin 81 mg DAILY PO 12/09/24 10:00 12/09/24 09:12 81 MG EZETIMIBE 10 mg DAILY PO 12/09/24 10:00 12/09/24 09:14 10 MG Hydroxychloroquine Sulfate 200 mg DAILY PO 12/09/24 10:00 12/10/24 10:09 200 MG Metoprolol Succinate 50 mg DAILY PO 12/09/24 10:00 12/10/24 10:09 50 MG Enteral Nutritional Formula 240 ml BIDWM PO 12/08/24 12:45 12/10/24 08:00 240 ML Enoxaparin Sodium 40 mg DAILY SC 12/09/24 10:00 12/10/24 10:09 40 MG Meropenem 50 ml @ 17 mls/hr Q8H IV 12/09/24 01:00 12/10/24 10:09 17 MLS/HR laboratory and microbiology Laboratory Tests 12/10/24 05:18 Test 12/10/24 05:18 Range/Units Serum Glucose 119 H 74-106 mg/dL Problem List SEPSIS/ UTI PANCREATIC CA S/P STENT ANEMIA GALLSTONES CAROTID STENOSIS HX OF CVA LUNG MASS S/P BOPSY RA CAROTID STENOSIS Assessment/Plan HX OF VRA ABX SX TREATMENT LUNG BX CONSISTENT WITH ADENOCARCINOMA DISCUSSED WITH ONCOLOGIST CONCERNING CHEM DELAY Plan discussed with: Patient JOSE ANGEL HALE MD Dec 10, 2024 15:16
--- NOTE | 2024-12-10 15:16 | DVHPN2 ---
Progress Note - Dictate Date Seen: Dec 09, 2024 Medical Necessity Reason Pt with a Central, PICC or Fol: No Subjective PT WITH SEPSIS/ UTI PANCREATIC CA S/P STENT ANEMIA GALLSTONES CAROTID STENOSIS HX OF CVA LUNG MASS S/P BOPSY RA CAROTID STENOSIS vital signs Vital Sign Date Time Temp Pulse Resp B/P (MAP) Pulse Ox O2 Delivery O2 Flow Rate FiO2 12/10/24 10:09 71 120/81 12/10/24 09:00 97.4 17 97 97.4 12/10/24 08:00 Room Air* 0 21 Total Intake and Output 12/09/24 12/09/24 12/10/24 15:00 23:00 07:00 Intake Total 50 ml 2610 ml 1540 ml Balance 50 ml 2610 ml 1540 ml medications Current Medications Medications Dose Ordered Sig/Keven Route Start Time Stop Time Status Last Admin Dose Admin Albuterol 2.5 mg Q4HPRN PRN NEB 12/08/24 12:15 Ipratropium [place] 0.5 mg Q4HPRN PRN NEB 12/08/24 12:15 Aspirin 81 mg DAILY PO 12/09/24 10:00 12/09/24 09:12 81 MG EZETIMIBE 10 mg DAILY PO 12/09/24 10:00 12/09/24 09:14 10 MG Hydroxychloroquine Sulfate 200 mg DAILY PO 12/09/24 10:00 12/10/24 10:09 200 MG Metoprolol Succinate 50 mg DAILY PO 12/09/24 10:00 12/10/24 10:09 50 MG Enteral Nutritional Formula 240 ml BIDWM PO 12/08/24 12:45 12/10/24 08:00 240 ML Enoxaparin Sodium 40 mg DAILY SC 12/09/24 10:00 12/10/24 10:09 40 MG Meropenem 50 ml @ 17 mls/hr Q8H IV 12/09/24 01:00 12/10/24 10:09 17 MLS/HR laboratory and microbiology Laboratory Tests 12/10/24 05:18 Test 12/10/24 05:18 Range/Units Serum Glucose 119 H 74-106 mg/dL Problem List SEPSIS/ UTI PANCREATIC CA S/P STENT ANEMIA GALLSTONES CAROTID STENOSIS HX OF CVA LUNG MASS S/P BOPSY RA CAROTID STENOSIS Assessment/Plan HX OF VRA ABX SX TREATMENT LUNG BX CONSISTENT WITH ADENOCARCINOMA DISCUSSED WITH ONCOLOGIST CONCERNING CHEM DELAY Plan discussed with: Patient, Spouse, Daughter JOSE ANGEL HALE MD Dec 10, 2024 15:16
[2024-12-10] MEDS: ACETAMINOPHEN 325 MG TAB PO PRN (16:41)
[2024-12-11 05:00] VITALS: BP 152/63; PULSE 68; RESP 16; TEMP 97.9; O2SAT 96
[2024-12-11 07:52] LABS: Basophils # (auto) 0 10 ^3/uL (0-0.2); Basophils % (auto) 0.6 % (0.0-2.0); Eosinophils # (auto) 0.3 10 ^3/uL (0-0.8); Eosinophils % (auto) 5.3 % (0.0-7.0); Hematocrit 36.5 % (36.0-46.0); Lymphocytes # (auto) 2.1 10 ^3/uL (0.4-5.4); Lymphocytes % (auto) 33.6 % (10.0-50.0); Mean Corpuscular Hemoglobin 30.9 pg (28.0-32.0); Mean Corpuscular Hgb Conc. 32.9 g/dL (32.0-36.0); Mean Corpuscular Volume 93.9 fL (80.0-100.0); Monocytes # (auto) 0.6 10 ^3/uL (0-1.3); Monocytes % (auto) 9.3 % (0.0-12.0); Neutrophils # (auto) 3.1 10 ^3/uL (1.6-8.6); Neutrophils % (auto) 51.2 % (37.0-80.0); Nucleated Red Blood Cells % 0.2 %; Platelet Count (auto) 267 10^3/uL (140-450); Red Blood Cells 3.88 10^6/uL (4.0-5.20); Red Cell Distribution Width 15.1 % (11.8-14.3); White Blood Cell 6.1 10^3/uL (4.4-10.8)
[2024-12-11 07:56] LABS: Chloride 106 mmol/L (98-107); Potassium 3.8 mmol/L (3.5-5.1); Sodium 142 mmol/L (136-145)
[2024-12-11 07:57] LABS: Anion Gap 9 (5-15); Carbon Dioxide 27 mmol/L (20-31)
[2024-12-11 08:00] VITALS: PULSE 70; RESP 17; O2SAT 98
[2024-12-11 08:02] LABS: Blood Urea Nitrogen 11 mg/dL (9-23)
[2024-12-11 08:06] LABS: Calcium 10.5 mg/dL (8.7-10.4); Glucose 107 mg/dL (74-106)
[2024-12-11 09:00] VITALS: BP 157/79; PULSE 70; RESP 17; TEMP 97.4; O2SAT 99
--- NOTE | 2024-12-11 11:15 | DVHPN2 ---
Progress Note Date Seen: Dec 11, 2024 Medical Necessity Reason Pt with a Central, PICC or Fol: No Subjective Patient reports: No new complaints Review of Systems: HEENT:Normal, CVS:Normal, RESPIRATORY:Normal, GI:Normal, :Normal, MSK:Normal, NEURO:Normal Objective vital signs Vital Sign Date Time Temp Pulse Resp B/P (MAP) Pulse Ox O2 Delivery O2 Flow Rate FiO2 12/11/24 10:39 70 157/79 12/11/24 09:00 97.4 17 99 97.4 12/10/24 20:00 Room Air* 0 21 Total Intake and Output 12/10/24 12/10/24 12/11/24 15:00 23:00 07:00 Intake Total 50 ml 760 ml 450 ml Balance 50 ml 760 ml 450 ml medications Current Medications Medications Dose Ordered Sig/Keven Route Start Time Stop Time Status Last Admin Dose Admin Albuterol 2.5 mg Q4HPRN PRN NEB 12/08/24 12:15 Cancel Ipratropium [place] 0.5 mg Q4HPRN PRN NEB 12/08/24 12:15 Cancel Aspirin 81 mg DAILY PO 12/09/24 10:00 12/09/24 09:12 81 MG EZETIMIBE 10 mg DAILY PO 12/09/24 10:00 12/09/24 09:14 10 MG Hydroxychloroquine Sulfate 200 mg DAILY PO 12/09/24 10:00 12/11/24 10:33 200 MG Metoprolol Succinate 50 mg DAILY PO 12/09/24 10:00 12/11/24 10:39 50 MG Enteral Nutritional Formula 240 ml BIDWM PO 12/08/24 12:45 12/11/24 08:00 240 ML Enoxaparin Sodium 40 mg DAILY SC 12/09/24 10:00 12/11/24 10:32 40 MG Meropenem 50 ml @ 17 mls/hr Q8H IV 12/09/24 01:00 12/11/24 10:33 17 MLS/HR Acetaminophen 650 mg Q6HP PRN PO 12/10/24 16:00 12/10/24 16:41 650 MG Examination: GENERAL:Normal, HEENT:Normal, NECK:Normal, LUNGS:Normal, CVS:Normal, ABDOMEN:Normal, MSK:Normal, SKIN:Normal, NEURO:Normal, :Normal laboratory and microbiology Laboratory Tests 12/11/24 06:42 Test 12/11/24 06:42 Range/Units Serum Glucose 107 H 74-106 mg/dL Microbiology Date/Time Source Procedure Growth Status 12/09/24 14:20 Voided Urine Urine Culture - Preliminary Resulted 12/08/24 04:21 Blood Blood Culture - Preliminary Resulted Problem List/Assessment/Plan Problem List/Assessment/Plan * sepsis with ?uti: iv meropenem *Pancreatic cancer status post ERCP and stent placement. * s/p fall. * History of VRE sepsis. * Rheumatoid arthritis. * Hypertension. * History of coronary artery disease with stent. * Anemia. * Gallstones. * Carotid stenosis. * Acute cerebrovascular accident. * lung mass s/p biopsy: lung mets advance care planning- full code- time spent-19 mins Plan discussed with: Patient, Spouse My Orders My Orders Orders - ELÍAS CYR MD Procedure Category Date Status Time Cleanse Wound With Ns DANIELITO 12/10/24 In Process 15:32 Acetaminophen Tablet PHA 12/10/24 In Process (Tylenol Tablet) 16:00 Date of Service: Dec 11, 2024 Billing Provider: ELÍAS CYR MD Common Visit Codes: [id number] INP/OBS CARE(HIGH) ELÍAS CYR MD Dec 11, 2024 11:15
--- NOTE | 2024-12-11 12:00 | DVHDS2 ---
Discharge Summary Date of Admission Dec 08, 2024 at 11:53 Date of Discharge: Dec 11, 2024 Labs/Diagnostic Data: Laboratory Results Test 12/11/24 06:42 12/10/24 05:18 12/08/24 06:10 12/08/24 04:28 White Blood Count 6.1 10^3/uL (4.4-10.8) Red Blood Count 3.88 10^6/uL (4.0-5.20) Hemoglobin 12.0 g/dL (12.2-16.2) Hematocrit 36.5 % (36.0-46.0) Mean Corpuscular Volume 93.9 fL (80.0-100.0) Mean Corpuscular Hemoglobin 30.9 pg (28.0-32.0) Mean Corpuscular Hemoglobin Concent 32.9 g/dL (32.0-36.0) Red Cell Distribution Width 15.1 % (11.8-14.3) Platelet Count 267 10^3/uL (140-450) Mean Platelet Volume 8.1 fL (6.9-10.8) Neutrophils (%) (Auto) 51.2 % (37.0-80.0) Lymphocytes (%) (Auto) 33.6 % (10.0-50.0) Monocytes (%) (Auto) 9.3 % (0.0-12.0) Eosinophils (%) (Auto) 5.3 % (0.0-7.0) Basophils (%) (Auto) 0.6 % (0.0-2.0) Neutrophils # (Auto) 3.1 10 ^3/uL (1.6-8.6) Lymphocytes # (Auto) 2.1 10 ^3/uL (0.4-5.4) Monocytes # (Auto) 0.6 10 ^3/uL (0-1.3) Eosinophils # (Auto) 0.3 10 ^3/uL (0-0.8) Basophils # (Auto) 0 10 ^3/uL (0-0.2) Nucleated Red Blood Cells 0.2 % Sodium Level 142 mmol/L (136-145) Potassium Level 3.8 mmol/L (3.5-5.1) Chloride Level 106 mmol/L (98-107) Carbon Dioxide Level 27 mmol/L (20-31) Anion Gap 9 (5-15) Blood Urea Nitrogen 11 mg/dL (9-23) Creatinine 0.61 mg/dL (0.550-1.02) Glomerular Filtration Rate Calc 90 mL/min (>90) BUN/Creatinine Ratio 18.0 (10.0-20.0) Serum Glucose 107 mg/dL (74-106) Calcium Level 10.5 mg/dL (8.7-10.4) Total Bilirubin 0.2 mg/dL (0.2-1.0) Aspartate Amino Transferase (AST) 30 U/L (13-40) Alanine Aminotransferase (ALT) 66 U/L (7-40) Alkaline Phosphatase 135 U/L (46-116) Total Protein 5.8 g/dL (5.7-8.2) Albumin 3.6 g/dL (3.2-4.8) Lactic Acid Level 1.9 mmol/L (0.4-2.0) Troponin I High Sensitivity 9 ng/L (</=34) Urine Color Light-yellow (Yellow) Urine Clarity Turbid (Clear) Urine pH 5.5 (5.0-9.0) Urine Specific [place] 1.012 (1.001-1.035) Urine Protein Negative (Negative) Urine Ketones Negative (Negative) Urine Blood Negative /uL (Negative) Urine Nitrite Negative (Negative) Urine Bilirubin Negative (Negative) Urine Urobilinogen Normal mg/dL (Negative) Urine Leukocyte Esterase 2+ /uL (Negative) Urine RBC 2 /hpf (0 - 4) Urine Microscopic WBC 17 /HPF (0-5) Urine Squamous Epithelial Cells Few /hpf (<5) Urine Bacteria Few /hpf (None Seen) Urine Mucus Few (None Seen) Urine Glucose Normal mg/dL (Normal) Test 12/08/24 04:21 Prothrombin Time 10.4 sec (9.3-11.8) Prothrombin Time INR 0.98 (0.9-1.15) Activated Partial Thromboplast Time 24.8 SEC (24.5-34.5) D-Dimer, Quantitative 2.30 mg/L FEU (0.0-0.49) Magnesium Level 1.6 mg/dL (1.6-2.6) Other Laboratory Tests 12/11/24 06:42 Brief Hx & Hospital Course: SEE DICTATED NOTE Condition at Discharge: Fair Final Diagnosis/Problems List SEPSIS Discharge Disposition: Home Discharge Instruct/Medications Diet: Consistent carbohydrate, Cardiac 2g Na,low cholest Activity: No Restrictions, As Tolerated Follow Up/Referral: [facility] IN AM Medications: RESUME HOME MEDS SCRIPT TO PHARMACY Discharge Statement: "Patient was advised to return to the ER or call 911 if any headaches, dizziness, shortness of breath, chest pain, abdominal pain, bleeding, fevers, or worsening of medical condition. Patient was counseled about treatment plan, medications, possible side effects, patientverbalized understanding. All questions were answered to the best of my ability. This discharge took greater then 30 minutes in planning, reviewing documentation, counseling the patient, and discussing with other team members." ASSESSMENT ASSESSMENT Assessment SEPSIS Date of Service: Dec 11, 2024 Billing Provider: ELÍAS CYR MD Common Visit Codes: 64184-HKX/OBS DISCH DAY >30min ELÍAS CYR MD Dec 11, 2024 12:00
[2024-12-11] MEDS ORDERED: CEFD300C2 PO (12:01)
--- NOTE | 2024-12-11 12:16 | DVHPN2 ---
Progress Note - Dictate Date Seen: Dec 11, 2024 Medical Necessity Reason Pt with a Central, PICC or Fol: No Subjective PT WITH SEPSIS/ UTI PANCREATIC CA S/P STENT ANEMIA GALLSTONES CAROTID STENOSIS HX OF CVA LUNG MASS S/P BOPSY RA CAROTID STENOSIS vital signs Vital Sign Date Time Temp Pulse Resp B/P (MAP) Pulse Ox O2 Delivery O2 Flow Rate FiO2 12/11/24 10:39 70 157/79 12/11/24 09:00 97.4 17 99 97.4 12/11/24 08:00 Room Air* 0 21 Total Intake and Output 12/10/24 12/10/24 12/11/24 15:00 23:00 07:00 Intake Total 50 ml 760 ml 450 ml Balance 50 ml 760 ml 450 ml medications Current Medications Medications Dose Ordered Sig/Keven Route Start Time Stop Time Status Last Admin Dose Admin Albuterol 2.5 mg Q4HPRN PRN NEB 12/08/24 12:15 Cancel Ipratropium [place] 0.5 mg Q4HPRN PRN NEB 12/08/24 12:15 Cancel Aspirin 81 mg DAILY PO 12/09/24 10:00 12/09/24 09:12 81 MG EZETIMIBE 10 mg DAILY PO 12/09/24 10:00 12/09/24 09:14 10 MG Hydroxychloroquine Sulfate 200 mg DAILY PO 12/09/24 10:00 12/11/24 10:33 200 MG Metoprolol Succinate 50 mg DAILY PO 12/09/24 10:00 12/11/24 10:39 50 MG Enteral Nutritional Formula 240 ml BIDWM PO 12/08/24 12:45 12/11/24 08:00 240 ML Enoxaparin Sodium 40 mg DAILY SC 12/09/24 10:00 12/11/24 10:32 40 MG Meropenem 50 ml @ 17 mls/hr Q8H IV 12/09/24 01:00 12/11/24 10:33 17 MLS/HR Acetaminophen 650 mg Q6HP PRN PO 12/10/24 16:00 12/10/24 16:41 650 MG laboratory and microbiology Laboratory Tests 12/11/24 06:42 Test 12/11/24 06:42 Range/Units Serum Glucose 107 H 74-106 mg/dL Problem List SEPSIS/ UTI PANCREATIC CA S/P STENT ANEMIA GALLSTONES CAROTID STENOSIS HX OF CVA LUNG MASS S/P BOPSY RA CAROTID STENOSIS Assessment/Plan HX OF VRA ABX SX TREATMENT LUNG BX CONSISTENT WITH ADENOCARCINOMA DISCUSSED WITH ONCOLOGIST CONCERNING CHEM DELAY Plan discussed with: Patient JOSE ANGEL HALE MD Dec 11, 2024 12:16
[2024-12-11 12:59] VITALS: BP 157/79; PULSE 70; RESP 18; TEMP 97.9; O2SAT 99
[2024-12-11 13:04] VITALS: BP 144/74; PULSE 77; RESP 17; TEMP 98; O2SAT 98
--- NOTE | 2024-12-11 13:18 | DVHDS ---
DATE OF DISCHARGE: 12/11/2024 HISTORY OF PRESENT ILLNESS: The patient is an 78-year-old lady who was admitted with history of generalized weakness and dizziness and has a history of pancreatic cancer with mets to the lung, hypertension, rheumatoid arthritis, and coronary artery disease. HOSPITAL COURSE: The patient had evidence of urinary tract infection. Her blood cultures were positive for likely strep species. The patient has now improved in his symptoms. White count is improved from 16,000 to 6000 at the time of discharge. The patient will now be discharged home to resume her home medications and also to be on cefdinir 300 mg p.o. b.i.d. for 7 days and follow up at [facility] in a.m. FINAL DIAGNOSES: Therefore, * Sepsis with likely urinary tract infection. * Pancreatic cancer, status post stent. * Liver metastasis. * History of fall. * Rheumatoid arthritis. * Hypertension. * Coronary artery disease, status post stent. * Anemia. * Gallstones. * History of cerebrovascular accident. Time spent in discharge planning and review of plan with the patient, and nursing was 39 minutes. MD CHIARA Mon/RAMIRO TID: [id number] RECEIPT: [id number]
== END 2024-12-11 13:40 | disposition home or self-care (01) | DRG 872 ==
LOC: EDBD 03:35 → ER 03:35 → OVERFLOW 11:53 → ER 12:05 → TELE-EAST 22:00 → EAST 12-10 12:05
PROVIDERS: ADMIT Internal Medicine; ATTEND Internal Medicine
DX: A41.9 Sepsis, unspecified organism (principal); N39.0 Urinary tract infection, site not specified; C78.7 Secondary malignant neoplasm of liver and intrahepatic bile duct; C78.02 Secondary malignant neoplasm of left lung; C78.01 Secondary malignant neoplasm of right lung; E87.6 Hypokalemia; M06.9 Rheumatoid arthritis, unspecified; D64.9 Anemia, unspecified; E78.5 Hyperlipidemia, unspecified; K80.20 Calculus of gallbladder without cholecystitis without obstruction; I10 Essential (primary) hypertension; R74.01 Elevation of levels of liver transaminase levels; I25.10 Atherosclerotic heart disease of native coronary artery without angina pectoris; G89.29 Other chronic pain; Z88.1 Allergy status to other antibiotic agents; Z86.73 Personal history of transient ischemic attack (TIA), and cerebral infarction without residual deficits; Z95.5 Presence of coronary angioplasty implant and graft; Z85.07 Personal history of malignant neoplasm of pancreas; Z79.899 Other long term (current) drug therapy
CPT/HCPCS: 36415; 70450; 71045; 71275; 80048; 80053; 81001; 83605; 83735; 84484; 85025; 85379; 85610; 85730; 87040; 87077; 87086; 87186; 97110; 97116; 97163; 97530; G0378; J0692; J2185

== ENCOUNTER → 2025-01-15 | Outpatient (CLI) | payer MEDICARE, BC ==
[~2025-01-15] MED LIST changes: +CEFD300C2 PO; +PANC1CAP PO
[2025-01-15] MEDS: ONDANSETRON HCL 4 MG/2 ML VIAL IV ONE (09:25)
[2025-01-15] MEDS: MVI in SODIUM CHLORIDE 0.9% 1,000 ML IVB ONE (09:30)
[2025-01-15 11:13] VITALS: BP_SYST 138; BP_SYST 148; BP_DIAS 59; BP_DIAS 80; PULSE 102; PULSE 77; RESP 18; O2SAT 97; O2SAT 98
[2025-01-15] MEDS: MULTIPLE VIT 10 ML IV ONE (11:40)
[2025-01-15 12:19] VITALS: BP_SYST 143; BP_SYST 156; BP_DIAS 63; BP_DIAS 81; PULSE 71; PULSE 99; RESP 18; O2SAT 97; O2SAT 98
[2025-01-15] MEDS: ONDANSETRON HCL 4 MG/2 ML VIAL ONE (13:41)
== END | disposition home or self-care (01) ==
LOC: CHF HDHVI 09:24
PROVIDERS: ATTEND Internal Medicine Cardiovascular Disease
DX: E86.0 Dehydration (principal); I10 Essential (primary) hypertension; I25.10 Atherosclerotic heart disease of native coronary artery without angina pectoris; C78.7 Secondary malignant neoplasm of liver and intrahepatic bile duct; C78.02 Secondary malignant neoplasm of left lung; C78.01 Secondary malignant neoplasm of right lung; M19.90 Unspecified osteoarthritis, unspecified site; E11.9 Type 2 diabetes mellitus without complications; E03.9 Hypothyroidism, unspecified; E78.5 Hyperlipidemia, unspecified; Z96.9 Presence of functional implant, unspecified; Z85.07 Personal history of malignant neoplasm of pancreas; Z88.1 Allergy status to other antibiotic agents; Z79.899 Other long term (current) drug therapy
CPT/HCPCS: 96365; 96366; 96375; G0463; J1642; J2405; 96360; 96361

== ENCOUNTER → 2025-02-11 | Outpatient (CLI) | payer MEDICARE, BC ==
[2025-02-11 09:10] VITALS: BP 134/77; PULSE 78; RESP 16; O2SAT 95
[2025-02-11] MEDS: MULTIPLE VIT 10 ML IV ONE (09:14)
[2025-02-11] MEDS: MVI in SODIUM CHLORIDE 0.9% 500 ML IVB ONE (09:32)
[2025-02-11 11:56] VITALS: BP 143/72; PULSE 75; RESP 16; O2SAT 95
== END | disposition home or self-care (01) ==
LOC: CHF HDHVI 09:09
PROVIDERS: ATTEND Internal Medicine Cardiovascular Disease
DX: E86.0 Dehydration (principal); C78.7 Secondary malignant neoplasm of liver and intrahepatic bile duct; C78.02 Secondary malignant neoplasm of left lung; C78.01 Secondary malignant neoplasm of right lung; I25.10 Atherosclerotic heart disease of native coronary artery without angina pectoris; I10 Essential (primary) hypertension; E11.9 Type 2 diabetes mellitus without complications; M06.9 Rheumatoid arthritis, unspecified; E78.5 Hyperlipidemia, unspecified; E03.9 Hypothyroidism, unspecified; Z85.07 Personal history of malignant neoplasm of pancreas; Z79.899 Other long term (current) drug therapy; Z86.73 Personal history of transient ischemic attack (TIA), and cerebral infarction without residual deficits
CPT/HCPCS: 96365; 96366; G0463; J1642; J7040; 96360; 96361

== ENCOUNTER 2025-02-14 17:56 | Inpatient (IN) | payer MEDICARE, BC ==
[~2025-02-14] VITALS: Ht 154.9 cm; Wt 53.8 kg
[~2025-02-14 17:56] MED LIST changes: -CLOP75TA28 PO; -IOHEXOL 350 MG/ML 100ML IJ ONE; -SENN-58 PO
[2025-02-14] MEDS ORDERED: MORPHINE SULFATE INJ 2 MG/ml SYRG IV PRN (18:30)
[2025-02-14] MEDS ORDERED: NITROGLYCERIN 0.4 MG SL TAB SL PRN (18:30)
[2025-02-14] MEDS: DexAMETHasone SOD PHOS 10MG/1ML VIAL INJ IV ONE (18:40)
[2025-02-14 19:08] LABS: Basophils # (auto) 0 10 ^3/uL (0-0.2); Basophils % (auto) 0.1 % (0.0-2.0); Eosinophils # (auto) 0 10 ^3/uL (0-0.8); Hematocrit 28.2 % (36.0-46.0); Hemoglobin 9.7 g/dL (12.2-16.2); Lymphocytes # (auto) 0.2 10 ^3/uL (0.4-5.4); Lymphocytes % (auto) 4.6 % (10.0-50.0); Mean Corpuscular Hemoglobin 31.9 pg (28.0-32.0); Mean Corpuscular Hgb Conc. 34.3 g/dL (32.0-36.0); Monocytes # (auto) 0 10 ^3/uL (0-1.3); Neutrophils # (auto) 3.3 10 ^3/uL (1.6-8.6); Neutrophils % (auto) 94.3 % (37.0-80.0); Nucleated Red Blood Cells % 0.1 %; Platelet Count (auto) 397 10^3/uL (140-450); Red Blood Cells 3.03 10^6/uL (4.0-5.20); Red Cell Distribution Width 16.7 % (11.8-14.3); White Blood Cell 3.5 10^3/uL (4.4-10.8)
[2025-02-14 19:25] LABS: Alanine Aminotransferase 33 U/L (7-40); Albumin 3.5 g/dL (3.2-4.8); Alkaline Phosphatase 90 U/L (46-116); Anion Gap 11 (5-15); Aspartate Aminotransferase 37 U/L (13-40); BUN/Creatinine Ratio 19.5 (10.0-20.0); Blood Urea Nitrogen 15 mg/dL (9-23); Calcium 9.1 mg/dL (8.7-10.4); Magnesium 1.7 mg/dL (1.6-2.6); Potassium 3.8 mmol/L (3.5-5.1); Sodium 139 mmol/L (136-145); Total Protein 5.9 g/dL (5.7-8.2)
[2025-02-14 19:26] LABS: Bilirubin, Total 0.4 mg/dL (0.2-1.0); Carbon Dioxide 20 mmol/L (20-31); Chloride 108 mmol/L (98-107); Glucose 296 mg/dL (74-106)
--- NOTE | 2025-02-14 19:38 | DVH ---
EXAM: CT HEAD WITHOUT CONTRAST INDICATION: r/o stroke TECHNIQUE: CT of the head without intravenous contrast. Radiation Dose Information: CT Dose: CTDI volume is 50.87 mGy. Dose-length product is 900.57 mGy*cm The dose indicators for CT are the volume Computed Tomography (CT) Dose Index (CTDIvol) and the Dose Length Product (DLP), and are measured in units of mGy and mGy-cm, respectively. These indicators are not patient dose, but values generated from the CT scanner acquisition factors. The report includes radiation exposure data for exposures received during this examination. COMPARISON: CT HEAD W WO CONTRAST on DOS: 02/14/25, CT HEAD WITHOUT CONTRAST on DOS: 12/08/24, CT HEAD W ITHOUT CONTRAST on DOS: 10/09/24 FINDINGS: There is no evidence of acute intracranial hemorrhage, extra-axial collection, mass effect, midline s hift, herniation or hydrocephalus. Cortical atrophy is noted with findings of infarct in the right posterior parietal lobe. The ventricles, sulci and cisterns are age appropriate. The chicas-white differentiation is intact. Patchy periventricular and subcortical white matter hypoattenuation is nonspecific but may be related to small vessel ischemic disease. The visualized paranasal sinuses and mastoid air cells are clear. The surrounding soft tissues and osseous structures are unremarkable. IMPRESSION: 1. Cortical atrophy 2. Findings of the ischemic infarct posterior right parietal lobe unchanged from 9:37 a.m, on 2024.
--- NOTE | 2025-02-14 19:40 | DVH ---
CHEST RADIOGRAPH Indication: baseline cxr direct admit dr pena Technique: Single frontal view of the chest was obtained Comparison: XY CHEST PORTABLE on DOS: 12/09/24, XY CHEST PORTABLE on DOS: 12/08/24, XY CHEST PORTABLE o n DOS: 10/13/24 FINDINGS: Lines and Tubes: PICC line from right arm in place in the superior vena cava above the right atrium. Lungs: No focal consolidation. Pleura: No effusion. No pneumothorax. Cardiomediastinal contours: Unremarkable Bones: No acute osseous abnormality. IMPRESSION: 1. PICC line from right arm in place in superior vena cava above the right atrium.
[2025-02-14 19:55] LABS: Urine Bacteria FEW /hpf (None Seen); Urine Blood Negative /uL (Negative); Urine Clarity Clear (Clear); Urine Color Light-Yellow (Yellow); Urine Protein, UAD Negative (Negative); Urine Specific Gravity 1.026 (1.001-1.035); Urine Squamous Epithelial Cell FEW /hpf (<5); Urine Urobilinogen Normal (Negative); Urine WBC 1 /HPF (0-5)
[2025-02-14] MEDS: SODIUM CHLORIDE 0.9% 1,000 ML IV SCH (20:45)
[2025-02-14 21:00] VITALS: BP 137/73; PULSE 96; RESP 18; TEMP 98.1; O2SAT 95
[2025-02-14] MEDS ORDERED: PANTOPRAZOLE 40 MG/10 ML VIAL INJ IV SCH (22:00)
--- NOTE | 2025-02-14 22:17 | DVHINCON2 ---
Date of service: February 14, [address] Howard Reason for Consultation R/O stroke History of Present Illness Ms. Martinez is a 79 years old right-handed female with a history of hypertension, coronary artery disease, rheumatoid arthritis, anemia, gallstone, pancreatic cancer with metastatic disease, she came to the [facility] on 11/20/2024 with a chief complaint of acute stroke syndrome. At this time, she was alert and fully oriented, her daughter is in the room with her, they provided the following history She had multiple strokes in 09/2024, that was further described She was feeling of drunk in the morning on 02/14/2025, and she had a CT head wi th without contrast at Dr. Spencer's office. She was returned home and she felt very tired (had chemo last Monday). She woke up in the afternoon, she had slurred speech, and she reports difficulty to get words out, and family also noticed right facial drooping. I have talked to Dr. Spencer, she was recommended to come to the hospital, she had another CT brain scan which did not show acute abnormality On 10/07/2024, she had general weakness, with the right leg more affected, she was admitted to the [facility], her MR brain scan on 10/10/2024 showed multiple strokes. After echocardiogram, carotid Doppler, he was discharged home, according to our record, she was on Aspirin 81 mg daily, Zetia 10 mg daily at home Urine urinalysis, 02/14/2025: Unremarkable WBC/HB/PLT/MCV, 02/14/2025: 3.5/9.7/397/93 CMP, 02/14/2025: Unremarkable TG/HDL/LDL/HDL, 08/2024: 121/152/105/34 Carotid Doppler, 10/10/2024: 1. stenosis noted in the right carotid system.50- 69% stenosis in the right internal carotid. 2. 50-69% stenosis of the left 3. internal carotid. 4. Echogenic plaque noted 5. at 6. carotid 7. bifurcation on the left. Echocardiogram, 10/12/2024: EF >55% MILD TR MILD MR NO PERICARDIAL EFFUSION CT head wwo, 02/14/2025: 1. No CT evidence of acute intracranial abnormality. 2. No enhancing mass or abnormal postcontrast enhancement visualized. 3. Nonacute findings as described abov CT head, 02/14/2025: 1. Cortical atrophy 2. Findings of the ischemic infarct posterior right parietal lobe unchanged from 9:37 a.m, on 02/14/2025 MR head, 10/10/2024: 1. Moderate size area of acute to subacute infarct in the right parietal lobe. There is no evidence of acute hemorrhage, surrounding edema or associated mass effect. 2. Additional small area of acute to subacute infarct in the posterior right occipital lobe and in the midline cerebellum posterior to the 4th ventricle. Past Medical History Hypertension, coronary artery disease, rheumatoid arthritis, anemia, gallstone, stroke, pancreatic cancer with liver metastatic disease Past Surgical History Carotid stent, lumbar spine surgery Family History: Cardiovascular disease G8 MOTHER FH: breast cancer 19 CHILD FH: cancer G8 FATHER Family History Coronary artery disease, cancer, psoriasis Social History She was a tobacco smoker, no history of alcohol or recreational substances abuse Allergies: Coded Allergies: Ciprofloxacin (Verified Allergy, Unknown, 02/21/18) Iodine (Verified Allergy, Unknown, 06/23/17) Simvastatin (Verified Allergy, Unknown, 10/10/24) BONE PAIN Sulfa Antibiotics (Verified Allergy, Unknown, 06/23/17) Home Meds Active Scripts Cefdinir (Cefdinir) 300 Mg Cap, 1 CAP PO BID for 7 Days, #14 CAP Prov:ELÍAS CYR MD 12/11/24 Ezetimibe (Zetia) 10 Mg Tab, 10 MG PO DAILY for 30 Days, #30 TAB 3 Refills Prov:ELÍAS CYR MD 10/30/24 Aspirin (ASPIRIN 81) 81 Mg Tab, 81 MG PO DAILY for 30 Days, #30 TAB 3 Refills Prov:ELÍAS CYR MD 10/30/24 Reported Medications Pancreatic Enzymes (Pancreaze) 4,200 Unit Cap, 4200 UNIT PO, CAP 12/09/24 Hydroxychloroquine Sulfate (Hydroxychloroquine Sulfat) 200 Mg Tab, 1 TAB DAILY 10/24/24 Potassium Chloride (Potassium Chloride ER) 20 Meq Tab, 1 TAB PO DAILY 10/24/24 Folic Acid (Folic Acid) 1 Mg Tab, 1 TAB PO DAILY 10/24/24 Metoprolol Succinate (Metoprolol Succinate Er) 50 Mg Tab, 1 TAB PO DAILY 10/24/24 Magnesium Chloride (Slow-Mag) Tab, 2 TAB PO DAILY, TAB 10/08/24 Linseed Oil (Flax Seed Oil) 1,000 Mg Cap, 1000 MG PO, CAP 10/08/24 Cholecalciferol (VITAMIN D3) 2,000 Unit Tab, 1 TAB PO DAILY, #30 TAB 5 Refills 10/08/24 Ibuprofen Micronized (MOTRIN TABLET) 600 Mg Tb, 600 MG PO TID, #40 TAB *Black box warning-NSAIDS can increase risk of CO & hypertension, GI irritation, ulceration, bleed, perferation. Do not use post cardiac surgery. Use short duration/lowest effective dose. 10/08/24 Current Medications Current Medications Medications (Trade) Dose Ordered Sig/Keven Route PRN Reason Start Time Stop Time Status Last Admin Nitroglycerin (Ntrostat Sublingual) 0.4 mg Q5MINP PRN SL FOR CHEST PAIN 02/14/25 18:30 Morphine Sulfate 2 mg Q30M PRN IV FOR CHEST PAIN 02/14/25 18:30 Pantoprazole Sodium (Protonix) 40 mg BID IV 02/14/25 22:00 02/14/25 18:36 DC Sodium Chloride 1,000 ml @ 50 mls/hr Q20H IV 02/14/25 18:30 02/14/25 20:45 Pantoprazole Sodium (Protonix) 40 mg DAILY IV 02/14/25 20:30 Review of Systems As above, the other systems are negative Physical Exam GENERAL EXAM: General: the patient is well developed and nourished. No acute distress. HEENT: Normocephalic, neck is supple, no carotid bruits. No mass. RESPIRATORY: Normal respiratory effort with symmetrical lung expansion. Lungs clear to auscultation. CARDIOVASCULAR: Regular rate and rhythm with no murmurs. S1, S2. ABDOMEN: Soft, nontender, normal bowel sound NEUROLOGICAL: MENTAL STATUS: Awake and alert. Oriented to person, place, time and general circumstances. Able to give personal history. SPEECH, LANGUAGE, HIGHER CORTICAL FUNCTION: Mild dysarthria, possible mild expressive aphasia CRANIAL NERVES: #2: Intact visual peña to confrontation. The optic discs were sharp. #3,4,6: Pupils are equal, round and reactive. EOMs full and conjugate. #5: Facial sensation intact in all three divisions bilaterally. Mandibular strength intact. #7: Right facial weakness of upper motor neuron pattern #8: Hearing grossly normal to voice. #9,10: Uvula and soft palate rise in the midline. Swallow and voice are normal. #11: Trapezius and sternomastoid strength intact bilaterally. #12: Tongue midline. No fasciculations or atrophy. SENSATION: Sensation to touch and pinprick is normal. MOTOR: Normal tone in the upper and lower extremity. Normal muscle bulk. No fasciculations. No abnormal movements or posturing. Muscle strength of the major groups in the extremities is 5/5 except for 4/5 in the right upper extremity. REFLEXES: Deep tendon reflexes are symmetrical. No pathological reflexes. CEREBELLAR/COORDINATION: Finger to nose is normal bilaterally. GAIT/STATION: deferred. Labs/Diagnostic Data Labs Test 02/14/25 20:00 02/14/25 19:00 Range/Units Urine Color Light-yellow Yellow Urine Clarity Clear Clear Urine pH 6.0 5.0-9.0 Urine Specific [place] 1.026 1.001-1.035 Urine Protein Negative Negative Urine Ketones Negative Negative Urine Blood Negative Negative /uL Urine Nitrite Negative Negative Urine Bilirubin Negative Negative Urine Urobilinogen Normal Negative mg/dL Urine Leukocyte Esterase Negative Negative /uL Urine RBC 1 0 - 4 /hpf Urine Microscopic WBC 1 0-5 /HPF Urine Squamous Epithelial Cells Few <5 /hpf Urine Bacteria Few H None Seen /hpf Urine Glucose 4+ H Normal mg/dL White Blood Count 3.5 L 4.4-10.8 10^3/uL Red Blood Count 3.03 L 4.0-5.20 10^6/uL Hemoglobin 9.7 L 12.2-16.2 g/dL Hematocrit 28.2 L 36.0-46.0 % Mean Corpuscular Volume 93.0 80.0-100.0 fL Mean Corpuscular Hemoglobin 31.9 28.0-32.0 pg Mean Corpuscular Hemoglobin Concent 34.3 32.0-36.0 g/dL Red Cell Distribution Width 16.7 H 11.8-14.3 % Platelet Count 397 140-450 10^3/uL Mean Platelet Volume 8.3 6.9-10.8 fL Neutrophils (%) (Auto) 94.3 H 37.0-80.0 % Lymphocytes (%) (Auto) 4.6 L 10.0-50.0 % Monocytes (%) (Auto) 1.0 0.0-12.0 % Eosinophils (%) (Auto) 0.0 0.0-7.0 % Basophils (%) (Auto) 0.1 0.0-2.0 % Neutrophils # (Auto) 3.3 1.6-8.6 10 ^3/uL Lymphocytes # (Auto) 0.2 L 0.4-5.4 10 ^3/uL Monocytes # (Auto) 0 0-1.3 10 ^3/uL Eosinophils # (Auto) 0 0-0.8 10 ^3/uL Basophils # (Auto) 0 0-0.2 10 ^3/uL Nucleated Red Blood Cells 0.1 % Sodium Level 139 136-145 mmol/L Potassium Level 3.8 3.5-5.1 mmol/L Chloride Level 108 H 98-107 mmol/L Carbon Dioxide Level 20 20-31 mmol/L Anion Gap 11 5-15 Blood Urea Nitrogen 15 9-23 mg/dL Creatinine 0.77 0.550-1.02 mg/dL Glomerular Filtration Rate Calc 77 >90 mL/min BUN/Creatinine Ratio 19.5 10.0-20.0 Serum Glucose 296 H 74-106 mg/dL Calcium Level 9.1 8.7-10.4 mg/dL Magnesium Level 1.7 1.6-2.6 mg/dL Total Bilirubin 0.4 0.2-1.0 mg/dL Aspartate Amino Transferase (AST) 37 13-40 U/L Alanine Aminotransferase (ALT) 33 7-40 U/L Alkaline Phosphatase 90 46-116 U/L Total Protein 5.9 5.7-8.2 g/dL Albumin 3.5 3.2-4.8 g/dL Assessment Acute speech disturbance, right facial and right arm weakness, rule out acute stroke Multiple acute stroke on 10/07/2024 Advanced pancreatic cancer Plan/Recommendation Monitoring Supportive treatment Telemetry Speech pathology evaluation EUNICE MRI brain scan NPO IVF: Normal saline 50 cc an hour Aspirin 81 mg daily Plavix 75 mg daily Zetia 10 mg daily GI prophylax/Protonix CBC prophylax/SCD More recommendation per clinical course Progress: Poor This medical document was created using an electronic medical record system with [employer] dictation system. Although this document has been carefully reviewed, there may still be some phonetic and typographical errors. These areas are purely typographical due to imperfections of the software programs, and do not reflect any compromise in the patient's medical care. Plan discussed with: Patient, Daughter, Other COSME HUANG MD February 14, 2025 22:17
[2025-02-14 22:21] VITALS: PULSE 96; RESP 18; O2SAT 95
[2025-02-14] MEDS: CLOPIDOGREL BISULFATE 75 MG TAB PO ONE (22:52)
[2025-02-14] MEDS: PANTOPRAZOLE 40 MG/10 ML VIAL INJ IV SCH (22:52)
[2025-02-14] MEDS ORDERED: LORazepam 2MG/ML-1ML VIAL IV PRN (23:30)
[2025-02-15] VITALS (7 sets, daily range): BP systolic 98–143; BP diastolic 69–78; PULSE 88–121; RESP 12–20; TEMP 97.7–98.3; O2SAT 94–98
[2025-02-15] MEDS: ASPirin 81 mg TAB PO SCH (10:00)
[2025-02-15] MEDS: CLOPIDOGREL BISULFATE 75 MG TAB PO SCH (10:53)
--- NOTE | 2025-02-15 11:02 | ECG ---
[facility] Test Date: 2025-02-14 Test Time: 18:32:28 Pat Name: JEFERSON RICARDO Department: Respiratoy Room: 0245T A Gender: F Blow Down Helper: : 1945 Requested By: JOSE ANGEL HALE Order Number: [id number] Reading MD: Mason Hutchison Measurements Intervals [place] Rate: 101 P: 26 NV: 181 QRS: -27 QRSD: 108 T: 35 QT: 369 QTc: 479 Interpretive Statements Sinus tachycardia Probable left atrial enlargement Borderline left axis deviation Anteroseptal infarct, age indeterminate Minimal ST elevation, inferior leads Electronically Signed On 02-19-2025 11:34:06 PDT by Mason Hutchison Please click the below link to view image of tracing.
--- NOTE | 2025-02-15 19:11 | DVH ---
EXAM: MRI BRAIN HEAD WO CONTRAST HISTORY: CVA TECHNIQUE: Multiplanar and multisequence MR imaging of the head was performed. COMPARISON: MRI BRAIN HEAD WO W CONTRAST on DOS: 10/10/24 FINDINGS: There is mild cerebral volume loss with concordant prominence of the subarachnoid spaces and ventricl es. There is a small acute / recent infarct with restricted diffusion in the left yost radiata on s eries 6, image 16. There is an evolving subacute to chronic infarct in the right parietal lobe, which was present as an acute infarct on 10/10/2024. There is moderate confluent FLAIR hyperintensities in the supratentorial white matter and mild FLAIR hyperintensities in the pontine white matter consiste nt with nonspecific white matter disease. There is no midline shift or mass effect. The vascular flow-voids are unremarkable. Prior ocular emelia s replacement. Trace left maxillary sinus and bilateral ethmoid air cell mucosal thickening. IMPRESSION: 1. Acute / recent small infarct in the left yost radiata. 2. Evolving subacute to chronic infarct in the right parietal lobe which was present as an acute inf arct from MRI brain dated 10/10/2024. 3. Generalized cerebral volume loss and moderate chronic microvascular ischemic change.
[2025-02-15] MEDS ORDERED: ACETAMINOPHEN 325 MG TAB PO PRN (22:00)
[2025-02-15] MEDS: ACETAMINOPHEN 325 MG TAB PO PRN (22:47)
[2025-02-15] MEDS: ONDANSETRON HCL 4 MG/2 ML VIAL IV PRN (22:51)
[2025-02-16] VITALS (9 sets, daily range): BP systolic 121–156; BP diastolic 69–88; PULSE 75–121; RESP 12–19; TEMP 97.5–98.1; O2SAT 97–99
[2025-02-17] VITALS (8 sets, daily range): BP systolic 101–145; BP diastolic 58–88; PULSE 68–93; RESP 14–18; TEMP 97.5–98.1; O2SAT 96–99
--- NOTE | 2025-02-17 09:31 | DVHPN2 ---
Progress Note - Dictate Date Seen: February 17, 2025 Medical Necessity Reason Pt with a Central, PICC or Fol: No Subjective Ms. Martinez is a 79 years old right-handed female with a history of hypertension, coronary artery disease, rheumatoid arthritis, anemia, gallstone, pancreatic cancer with metastatic disease, she came to the [facility] on 11/20/2024 with a chief complaint of acute stroke syndrome. She had multiple strokes in 09/2024, that was further described I have seen examined the patient, talked to her daytime nighttime nurses, document neuroma, Dr. Spencer input appreciated She was doing fine, no new complaints. She was not take Zetia before she consult Dr. Spencer On 10/07/2024, she had general weakness, with the right leg more affected, she was admitted to the [facility], her MR brain scan on 10/10/2024 showed multiple strokes. After echocardiogram, carotid Doppler, he was discharged home, according to our record, she was on Aspirin 81 mg daily, Zetia 10 mg daily at home Urine urinalysis, 02/14/2025: Unremarkable WBC/HB/PLT/MCV, 02/14/2025: 3.5/9.7/397/93 CMP, 02/14/2025: Unremarkable TG/HDL/LDL/HDL, 08/2024: 121/152/105/34 Carotid Doppler, 10/10/2024: 1. stenosis noted in the right carotid system.50- 69% stenosis in the right internal carotid. 2. 50-69% stenosis of the left 3. internal carotid. 4. Echogenic plaque noted 5. at 6. carotid 7. bifurcation on the left. Echocardiogram, 10/12/2024: EF >55% MILD TR MILD MR NO PERICARDIAL EFFUSION CT head wwo, 02/14/2025: 1. No CT evidence of acute intracranial abnormality. 2. No enhancing mass or abnormal postcontrast enhancement visualized. 3. Nonacute findings as described abov CT head, 02/14/2025: 1. Cortical atrophy 2. Findings of the ischemic infarct posterior right parietal lobe unchanged from 9:37 a.m, on 02/14/2025 MRI head, 10/10/2024: 1. Moderate size area of acute to subacute infarct in the right parietal lobe. There is no evidence of acute hemorrhage, surrounding edema or associated mass effect. 2. Additional small area of acute to subacute infarct in the posterior right occipital lobe and in the midline cerebellum posterior to the 4th ventricle MRI head, 02/15/2025: 1. Acute / recent small infarct in the left yost radiata. 2. Evolving subacute to chronic infarct in the right parietal lobe which was present as an acute infarct from MRI brain dated 10/10/2024. 3. Generalized cerebral volume loss and moderate chronic microvascular ischemic change. vital signs Vital Sign Date Time Temp Pulse Resp B/P (MAP) Pulse Ox O2 Delivery O2 Flow Rate FiO2 02/17/25 08:00 70 16 98 Room Air* 0 21 02/17/25 05:00 97.8 114/70 (85) 97.8 Total Intake and Output 02/16/25 02/16/25 02/17/25 15:00 23:00 07:00 Intake Total 900 ml 1190 ml 240 ml Output Total 550 ml Balance 900 ml 1190 ml -310 ml medications Current Medications Medications Dose Ordered Sig/Keven Route Start Time Stop Time Status Last Admin Dose Admin Nitroglycerin 0.4 mg Q5MINP PRN SL 02/14/25 18:30 Morphine Sulfate 2 mg Q30M PRN IV 02/14/25 18:30 Sodium Chloride 1,000 ml @ 50 mls/hr Q20H IV 02/14/25 18:30 02/17/25 07:04 50 MLS/HR Pantoprazole Sodium 40 mg DAILY IV 02/14/25 20:30 02/16/25 08:48 40 MG Clopidogrel Bisulfate 75 mg DAILY PO 02/15/25 10:00 02/16/25 08:48 75 MG Aspirin 81 mg DAILY PO 02/15/25 10:00 Lorazepam 1 mg ONCE PRN IV 02/14/25 23:30 Acetaminophen 325 mg Q6HP PRN PO 02/15/25 22:00 Cancel Ondansetron HCl 4 mg Q8HPRN PRN IV 02/15/25 22:00 02/15/25 22:51 4 MG Acetaminophen 650 mg Q6HP PRN PO 02/15/25 22:30 02/16/25 21:37 650 MG objective General: the patient is well developed and nourished. No acute distress. MENTAL STATUS: Awake and alert. Oriented to person, place, time and general circumstances. Able to give personal history. SPEECH, LANGUAGE, HIGHER CORTICAL FUNCTION: Mild dysarthria, possible mild expressive aphasia CRANIAL NERVES: Pupils are equal, round and reactive. EOMs full and conjugate. Facial sensation intact in all three divisions bilaterally. Mandibular strength intact. Right facial weakness of upper motor neuron pattern SENSATION: Sensation to touch and pinprick is normal. MOTOR: Normal tone in the upper and lower extremity. Normal muscle bulk. No fasciculations. No abnormal movements or posturing. Muscle strength of the major groups in the extremities is 5/5 except for 4/5 in the right upper extremity. REFLEXES: Deep tendon reflexes are symmetrical. No pathological reflexes. CEREBELLAR/COORDINATION: Finger to nose is normal bilaterally. GAIT/STATION: deferred laboratory and microbiology Laboratory Tests 02/14/25 19:00 Test 02/14/25 19:00 Range/Units Serum Glucose 296 H 74-106 mg/dL Problem List Acute speech disturbance, right facial and right arm weakness, rule out acute stroke Multiple acute stroke on 10/07/2024 Advanced pancreatic cancer Assessment/Plan Monitoring Supportive treatment Telemetry Speech pathology evaluation EUNICE NPO IVF: Normal saline 50 cc an hour Aspirin 81 mg daily Plavix 75 mg daily Zetia 10 mg daily (if okay with Dr. Spencer) GI prophylax/Protonix DVT prophylax/SCD More recommendation per clinical course This medical document was created using an electronic medical record system with [employer] dictation system. Although this document has been carefully reviewed, there may still be some phonetic and typographical errors. These areas are purely typographical due to imperfections of the software programs, and do not reflect any compromise in the patient's medical care. Dietary Evaluation Review Recommendations by RD: Increase Calorie Intake Comments: 1) Initiate Glucerna qd 2) Collect HbA1c 3) Follow-up with neurology, oncology, and cardiology 4) Continue to monitor I&O, labs, and skin integrity Expected Outcomes/Goals: 1) appetite and labs to improve 2) f/u in 3-5 days Plan discussed with: Patient, Other COSME HUANG MD February 17, 2025 09:31
--- NOTE | 2025-02-17 10:38 | DVHHP2 ---
Review of Systems Allergies: Coded Allergies: Ciprofloxacin (Verified Allergy, Unknown, 02/21/18) Iodine (Verified Allergy, Unknown, 06/23/17) Simvastatin (Verified Allergy, Unknown, 10/10/24) BONE PAIN Sulfa Antibiotics (Verified Allergy, Unknown, 06/23/17) Medications Current Medications Medications Dose Ordered Sig/Keven Route Start Time Stop Time Status Last Admin Dose Admin Nitroglycerin 0.4 mg Q5MINP PRN SL 02/14/25 18:30 Morphine Sulfate 2 mg Q30M PRN IV 02/14/25 18:30 Sodium Chloride 1,000 ml @ 50 mls/hr Q20H IV 02/14/25 18:30 02/17/25 07:04 50 MLS/HR Pantoprazole Sodium 40 mg DAILY IV 02/14/25 20:30 02/16/25 08:48 40 MG Clopidogrel Bisulfate 75 mg DAILY PO 02/15/25 10:00 02/17/25 09:58 75 MG Aspirin 81 mg DAILY PO 02/15/25 10:00 02/17/25 09:59 81 MG Lorazepam 1 mg ONCE PRN IV 02/14/25 23:30 Acetaminophen 325 mg Q6HP PRN PO 02/15/25 22:00 Cancel Ondansetron HCl 4 mg Q8HPRN PRN IV 02/15/25 22:00 02/15/25 22:51 4 MG Acetaminophen 650 mg Q6HP PRN PO 02/15/25 22:30 02/16/25 21:37 650 MG EZETIMIBE 10 mg DAILY PO 02/17/25 10:00 Exam Vital Signs Vital Signs Date Time Temp Pulse Resp B/P (MAP) Pulse Ox O2 Delivery O2 Flow Rate FiO2 02/17/25 09:00 97.5 70 16 137/88 (104) 98 97.5 02/17/25 08:00 Room Air* 0 21 Labs/Xrays Labs Test 02/14/25 20:00 02/14/25 19:00 Range/Units Urine Color Light-yellow Yellow Urine Clarity Clear Clear Urine pH 6.0 5.0-9.0 Urine Specific [place] 1.026 1.001-1.035 Urine Protein Negative Negative Urine Ketones Negative Negative Urine Blood Negative Negative /uL Urine Nitrite Negative Negative Urine Bilirubin Negative Negative Urine Urobilinogen Normal Negative mg/dL Urine Leukocyte Esterase Negative Negative /uL Urine RBC 1 0 - 4 /hpf Urine Microscopic WBC 1 0-5 /HPF Urine Squamous Epithelial Cells Few <5 /hpf Urine Bacteria Few H None Seen /hpf Urine Glucose 4+ H Normal mg/dL White Blood Count 3.5 L 4.4-10.8 10^3/uL Red Blood Count 3.03 L 4.0-5.20 10^6/uL Hemoglobin 9.7 L 12.2-16.2 g/dL Hematocrit 28.2 L 36.0-46.0 % Mean Corpuscular Volume 93.0 80.0-100.0 fL Mean Corpuscular Hemoglobin 31.9 28.0-32.0 pg Mean Corpuscular Hemoglobin Concent 34.3 32.0-36.0 g/dL Red Cell Distribution Width 16.7 H 11.8-14.3 % Platelet Count 397 140-450 10^3/uL Mean Platelet Volume 8.3 6.9-10.8 fL Neutrophils (%) (Auto) 94.3 H 37.0-80.0 % Lymphocytes (%) (Auto) 4.6 L 10.0-50.0 % Monocytes (%) (Auto) 1.0 0.0-12.0 % Eosinophils (%) (Auto) 0.0 0.0-7.0 % Basophils (%) (Auto) 0.1 0.0-2.0 % Neutrophils # (Auto) 3.3 1.6-8.6 10 ^3/uL Lymphocytes # (Auto) 0.2 L 0.4-5.4 10 ^3/uL Monocytes # (Auto) 0 0-1.3 10 ^3/uL Eosinophils # (Auto) 0 0-0.8 10 ^3/uL Basophils # (Auto) 0 0-0.2 10 ^3/uL Nucleated Red Blood Cells 0.1 % Sodium Level 139 136-145 mmol/L Potassium Level 3.8 3.5-5.1 mmol/L Chloride Level 108 H 98-107 mmol/L Carbon Dioxide Level 20 20-31 mmol/L Anion Gap 11 5-15 Blood Urea Nitrogen 15 9-23 mg/dL Creatinine 0.77 0.550-1.02 mg/dL Glomerular Filtration Rate Calc 77 >90 mL/min BUN/Creatinine Ratio 19.5 10.0-20.0 Serum Glucose 296 H 74-106 mg/dL Calcium Level 9.1 8.7-10.4 mg/dL Magnesium Level 1.7 1.6-2.6 mg/dL Total Bilirubin 0.4 0.2-1.0 mg/dL Aspartate Amino Transferase (AST) 37 13-40 U/L Alanine Aminotransferase (ALT) 33 7-40 U/L Alkaline Phosphatase 90 46-116 U/L Total Protein 5.9 5.7-8.2 g/dL Albumin 3.5 3.2-4.8 g/dL Microbiology Date/Time Source Procedure Growth Status 02/15/25 02:30 Nose MRSA Screen - Final Complete Assessment/Plan Assessment/Plan SEE DICTATED NOTE Plan discussed with: Patient, Spouse, Daughter My Orders Orders - ELÍAS CYR MD Procedure Category Date Status Time Metoprolol Xl PHA 02/17/25 Transmitted Succinate (Toprol Xl) 10:45 Metoprolol Xl PHA 02/18/25 Transmitted Succinate (Toprol Xl) 10:00 Magnesium Oxide PHA 02/17/25 Transmitted Tablet (Mag-Ox Tablet) 10:45 Magnesium Oxide PHA 02/18/25 Transmitted Tablet (Mag-Ox Tablet) 10:00 Mechanical Soft Diet DIET 02/17/25 Transmitted Lunch Basic Metabolic Panel LAB 02/18/25 Verified 06:00 Complete Blood Count LAB 02/18/25 Verified 06:00 Magnesium LAB 02/18/25 Verified 05:00 Hemoglobin A1c LAB 02/18/25 Verified 06:00 Hydroxychloroquine PHA 02/17/25 Transmitted Tablet (Plaquenil Tab 10:45 Hydroxychloroquine PHA 02/18/25 Transmitted Tablet (Plaquenil Tab 10:00 Date of Service: February 17, 2025 Billing Provider: ELÍAS CYR MD Common Visit Codes: 31652-FTNZTAQ INP/OBS CARE (HIGH) Secondary Visit Codes: 50346-[id number] CARE PLAN 30 MINUTES ELÍAS CYR MD February 17, 2025 10:38
[2025-02-17] MEDS ORDERED: SENN-58 PO (10:47)
--- NOTE | 2025-02-17 10:48 | DVHPN2 ---
Progress Note - Dictate Date Seen: February 14, 2025 Medical Necessity Reason Pt with a Central, PICC or Fol: No Subjective PT DIRECT ADMIT BECAUSE OF NEUROLOGIC DEFICIT CONSISTENT WITH CVA PANCREATIC CA S/P STENT ANEMIA GALLSTONES CAROTID STENOSIS HX OF CVA LUNG MASS S/P BOPSY RA CAROTID STENOSIS MRI 1. Acute / recent small infarct in the left yost radiata. 2. Evolving subacute to chronic infarct in the right parietal lobe which was present as an acute infarct from MRI brain dated 10/10/2024. 3. Generalized cerebral volume loss and moderate chronic microvascular ischemic change. CAROTID U/S 1. stenosis noted in the right carotid system.50-69% stenosis in the right internal carotid. 2. 50-69% stenosis of the left 3. internal carotid. 4. Echogenic plaque noted vital signs Vital Sign Date Time Temp Pulse Resp B/P (MAP) Pulse Ox O2 Delivery O2 Flow Rate FiO2 02/17/25 09:00 97.5 70 16 137/88 (104) 98 97.5 02/17/25 08:00 Room Air* 0 21 Total Intake and Output 02/16/25 02/16/25 02/17/25 15:00 23:00 07:00 Intake Total 900 ml 1190 ml 240 ml Output Total 550 ml Balance 900 ml 1190 ml -310 ml medications Current Medications Medications Dose Ordered Sig/Keven Route Start Time Stop Time Status Last Admin Dose Admin Nitroglycerin 0.4 mg Q5MINP PRN SL 02/14/25 18:30 Morphine Sulfate 2 mg Q30M PRN IV 02/14/25 18:30 Pantoprazole Sodium 40 mg DAILY IV 02/14/25 20:30 02/16/25 08:48 40 MG Clopidogrel Bisulfate 75 mg DAILY PO 02/15/25 10:00 02/17/25 09:58 75 MG Aspirin 81 mg DAILY PO 02/15/25 10:00 02/17/25 09:59 81 MG Lorazepam 1 mg ONCE PRN IV 02/14/25 23:30 Acetaminophen 325 mg Q6HP PRN PO 02/15/25 22:00 Cancel Ondansetron HCl 4 mg Q8HPRN PRN IV 02/15/25 22:00 02/15/25 22:51 4 MG Acetaminophen 650 mg Q6HP PRN PO 02/15/25 22:30 02/16/25 21:37 650 MG EZETIMIBE 10 mg DAILY PO 02/17/25 10:00 Metoprolol Succinate 50 mg DAILY PO 02/18/25 10:00 UNV Magnesium Oxide 400 mg DAILY PO 02/18/25 10:00 UNV Hydroxychloroquine Sulfate 200 mg DAILY PO 02/18/25 10:00 UNV laboratory and microbiology Laboratory Tests 02/14/25 19:00 Test 02/14/25 19:00 Range/Units Serum Glucose 296 H 74-106 mg/dL Problem List DIRECT ADMIT BECAUSE OF NEUROLOGIC DEFICIT CONSISTENT WITH CVA PANCREATIC CA S/P STENT ANEMIA GALLSTONES CAROTID STENOSIS HX OF CVA LUNG MASS S/P BOPSY RA CAROTID STENOSIS MRI 1. Acute / recent small infarct in the left yost radiata. 2. Evolving subacute to chronic infarct in the right parietal lobe which was present as an acute infarct from MRI brain dated 10/10/2024. 3. Generalized cerebral volume loss and moderate chronic microvascular ischemic change. CAROTID U/S 1. stenosis noted in the right carotid system.50-69% stenosis in the right internal carotid. 2. 50-69% stenosis of the left 3. internal carotid. 4. Echogenic plaque noted Assessment/Plan PLAVIX CONSIDER CAROTID ANGIO Dietary Evaluation Review Recommendations by RD: Increase Calorie Intake Comments: 1) Initiate Glucerna qd 2) Collect HbA1c 3) Follow-up with neurology, oncology, and cardiology 4) Continue to monitor I&O, labs, and skin integrity Expected Outcomes/Goals: 1) appetite and labs to improve 2) f/u in 3-5 days Plan discussed with: Patient, Spouse JOSE ANGEL HALE MD February 17, 2025 10:48
--- NOTE | 2025-02-17 10:53 | DVHHP ---
ADMIT DATE: 02/17/2025 HISTORY OF PRESENT ILLNESS: The patient is an 79-year-old lady who came in with a history of increasing weakness on the right side with difficulty in speech as well as deviation of the mouth. The patient also had weakness on the right upper extremity. There is a history of mild headache. No nausea or vomiting. No diplopia. No dysphagia. Review of rest systems otherwise currently negative. No history of any trauma to head. No history of any fall. PAST MEDICAL HISTORY: Significant for pancreatic cancer with metastasis to the liver and lung. She is status post chemotherapy. She also has a history of lupus, hypertension, coronary artery status post stent, history of previous CVA, history of gallstones, and pancreatic insufficiency. MEDICATIONS: Her medications include pancreatic lipase, potassium, magnesium, Plaquenil, ezetimibe, aspirin. ALLERGIES: CIPRO, SIMVASTATIN, SULFA, AND IODINE. SOCIAL HISTORY: Denies smoking and alcohol. Lives at home with her . FAMILY HISTORY: Negative. PHYSICAL EXAMINATION: GENERAL: The patient is awake and alert. VITAL SIGNS: Temperature 98.1, pulse 86 per minute, blood pressure 154/81. SHEENT: Unremarkable. NECK: No JVD. No pedal edema. LUNGS: Lungs are equal bilaterally. No added sounds. CARDIOVASCULAR: S1 and S2 is regular. There is tachycardia. ABDOMEN: Soft. There is no tenderness. NEUROLOGIC: The patient has right-sided weakness of grade 4 power along with right-sided facial weakness. There is mild dysarthria. MUSCULOSKELETAL: Exam is normal. ASSESSMENT AND PLAN: * Acute CVA. The patient will be placed on aspirin and Plavix and will be seen in Neurology consult by Dr. Lanier. * Pancreatic cancer with metastasis status post stent, is currently on chemotherapy. * Hypertension for which she will continue metoprolol. * Pancreatic insufficiency. * Lupus. * Coronary artery status post stent. * Gallstones. * History of previous CVA. * Anemia. ADVANCED CARE PLANNING: The patient is a full code. Time spent was 18 minutes. MD CHIARA Mon/MIKE TID: [id number] RECEIPT: [id number]
[2025-02-17] MEDS: hydrOXYchloroQUINE SULFATE 200 MG TAB PO ONE (11:23)
[2025-02-17] MEDS: MAGNESIUM OXIDE 400 MG TAB PO ONE (11:23)
[2025-02-17] MEDS: EZETIMIBE 10 MG TAB PO SCH (11:23)
[2025-02-17] MEDS: METOPROLOL SUCCINATE XL 50 MG TAB PO ONE (11:24)
[2025-02-18] VITALS (12 sets, daily range): BP systolic 109–136; BP diastolic 57–77; PULSE 67–85; RESP 12–18; TEMP 97.6–98.4; O2SAT 89–100
[2025-02-18 06:25] LABS: Sodium 142 mmol/L (136-145)
[2025-02-18 06:26] LABS: Anion Gap 7 (5-15); Basophils # (auto) 0 10 ^3/uL (0-0.2); Basophils % (auto) 0.8 % (0.0-2.0); Calcium 9.2 mg/dL (8.7-10.4); Carbon Dioxide 26 mmol/L (20-31); Eosinophils # (auto) 0.5 10 ^3/uL (0-0.8); Eosinophils % (auto) 10.7 % (0.0-7.0); Hematocrit 26.9 % (36.0-46.0); Hemoglobin 9.2 g/dL (12.2-16.2); Lymphocytes % (auto) 24.5 % (10.0-50.0); Mean Corpuscular Hemoglobin 31.8 pg (28.0-32.0); Mean Corpuscular Hgb Conc. 34.3 g/dL (32.0-36.0); Mean Corpuscular Volume 92.7 fL (80.0-100.0); Monocytes # (auto) 0.1 10 ^3/uL (0-1.3); Monocytes % (auto) 2.3 % (0.0-12.0); Neutrophils # (auto) 2.6 10 ^3/uL (1.6-8.6); Neutrophils % (auto) 61.7 % (37.0-80.0); Platelet Count (auto) 395 10^3/uL (140-450); Red Cell Distribution Width 18.9 % (11.8-14.3); White Blood Cell 4.3 10^3/uL (4.4-10.8)
[2025-02-18 06:31] LABS: BUN/Creatinine Ratio 13.6 (10.0-20.0)
[2025-02-18 06:32] LABS: Blood Urea Nitrogen 8 mg/dL (9-23); Chloride 109 mmol/L (98-107); Glucose 115 mg/dL (74-106); Magnesium 1.7 mg/dL (1.6-2.6); Potassium 3.2 mmol/L (3.5-5.1)
[2025-02-18 06:37] LABS: INR 1.03 (0.9-1.15); Partial Thromboplastin Time 27.2 SEC (24.5-34.5); Prothrombin Time 10.9 sec (9.3-11.8)
--- NOTE | 2025-02-18 07:31 | DVHPN2 ---
Progress Note - Dictate Date Seen: February 18, 2025 Medical Necessity Reason Pt with a Central, PICC or Fol: No Subjective PT DIRECT ADMIT BECAUSE OF NEUROLOGIC DEFICIT CONSISTENT WITH CVA PANCREATIC CA S/P STENT ANEMIA GALLSTONES CAROTID STENOSIS HX OF CVA LUNG MASS S/P BOPSY RA CAROTID STENOSIS MRI 1. Acute / recent small infarct in the left yost radiata. 2. Evolving subacute to chronic infarct in the right parietal lobe which was present as an acute infarct from MRI brain dated 10/10/2024. 3. Generalized cerebral volume loss and moderate chronic microvascular ischemic change. CAROTID U/S 1. stenosis noted in the right carotid system.50-69% stenosis in the right internal carotid. 2. 50-69% stenosis of the left 3. internal carotid. 4. Echogenic plaque noted vital signs Vital Sign Date Time Temp Pulse Resp B/P (MAP) Pulse Ox O2 Delivery O2 Flow Rate FiO2 02/18/25 05:00 98.4 76 16 126/71 (89) 95 98.4 02/17/25 20:00 Room Air* 0 21 Total Intake and Output 02/17/25 02/17/25 02/18/25 15:00 23:00 07:00 Intake Total 725 ml 210 ml Balance 725 ml 210 ml medications Current Medications Medications Dose Ordered Sig/Keven Route Start Time Stop Time Status Last Admin Dose Admin Nitroglycerin 0.4 mg Q5MINP PRN SL 02/14/25 18:30 Morphine Sulfate 2 mg Q30M PRN IV 02/14/25 18:30 Pantoprazole Sodium 40 mg DAILY IV 02/14/25 20:30 02/17/25 11:23 40 MG Clopidogrel Bisulfate 75 mg DAILY PO 02/15/25 10:00 02/17/25 09:58 75 MG Aspirin 81 mg DAILY PO 02/15/25 10:00 02/17/25 09:59 81 MG Lorazepam 1 mg ONCE PRN IV 02/14/25 23:30 Acetaminophen 325 mg Q6HP PRN PO 02/15/25 22:00 Cancel Ondansetron HCl 4 mg Q8HPRN PRN IV 02/15/25 22:00 02/15/25 22:51 4 MG Acetaminophen 650 mg Q6HP PRN PO 02/15/25 22:30 02/17/25 21:33 650 MG EZETIMIBE 10 mg DAILY PO 02/17/25 10:00 02/17/25 11:23 10 MG Metoprolol Succinate 50 mg DAILY PO 02/18/25 10:00 Magnesium Oxide 400 mg DAILY PO 02/18/25 10:00 Hydroxychloroquine Sulfate 200 mg DAILY PO 02/18/25 10:00 laboratory and microbiology Laboratory Tests 02/18/25 05:31 Test 02/18/25 05:31 Range/Units Serum Glucose 115 H 74-106 mg/dL Problem List DIRECT ADMIT BECAUSE OF NEUROLOGIC DEFICIT CONSISTENT WITH CVA PANCREATIC CA S/P STENT ANEMIA GALLSTONES CAROTID STENOSIS HX OF CVA LUNG MASS S/P BOPSY RA CAROTID STENOSIS MRI 1. Acute / recent small infarct in the left yots radiata. 2. Evolving subacute to chronic infarct in the right parietal lobe which was present as an acute infarct from MRI brain dated 10/10/2024. 3. Generalized cerebral volume loss and moderate chronic microvascular ischemic change. CAROTID U/S 1. stenosis noted in the right carotid system.50-69% stenosis in the right internal carotid. 2. 50-69% stenosis of the left 3. internal carotid. 4. Echogenic plaque noted Assessment/Plan PLAVIX CONSIDER CAROTID ANGIO ANGIO THIS AM Dietary Evaluation Review Recommendations by RD: Increase Calorie Intake Comments: 1) Initiate Glucerna qd 2) Collect HbA1c 3) Follow-up with neurology, oncology, and cardiology 4) Continue to monitor I&O, labs, and skin integrity Expected Outcomes/Goals: 1) appetite and labs to improve 2) f/u in 3-5 days Plan discussed with: Patient, Spouse JOSE ANGEL HALE MD February 18, 2025 07:31
[2025-02-18] MEDS: IOHEXOL 350 MG/ML 100ML IJ ONE ×2 (07:39→09:11)
[2025-02-18] MEDS: HEPARIN IN NS 1000Units/500mL 1,500 ML ONE (07:40)
[2025-02-18] MEDS: ANGIOMAX 250 MG VIAL IV ONE (08:03)
[2025-02-18] MEDS: diphenhdrAMINE HCL 50 MG/1 ML VL ONE (08:03)
[2025-02-18] MEDS: MIDAZOLAM HCL 2MG/2ML 2ml VIAL (1mg/ml) ONE (08:04)
[2025-02-18] MEDS: SODIUM CHL 0.9% 50 ML ONE (08:04)
[2025-02-18] MEDS: fentaNYL CITRATE 100 MCG/2 ML VL ONE (08:04)
[2025-02-18] MEDS: methylPREDNISolone SOD SUCC 125 MG/2 ML VL ONE (08:05)
[2025-02-18] MEDS: LIDOCAINE 2%HCL (LOCAL ANESTH.) INJ 20ML MDV ONE (08:05)
[2025-02-18] MEDS: FAMOTIDINE (10MG/ML) 2ML VL IV ONE (08:06)
[2025-02-18] MEDS: PHENYLEPHRINE HCL 10 MG/ML VL ONE (08:26)
[2025-02-18] MEDS: GLYCOPYRROLATE 0.2 MG/ML 1ML VIAL ONE (08:27)
[2025-02-18] MEDS: NITROGLYCERIN 0.4MG/DOSE SPRAY 4.9GM ONE (09:11)
--- NOTE | 2025-02-18 09:31 | DVHOP ---
DATE OF SURGERY: 02/18/2025 PROCEDURES PERFORMED: * Selective left and right carotid angiography. * Selective left and right cerebral angiography. * Angioplasty of the left internal carotid artery with a 9 x 7 x 40 mm Xact stent with distal embolic protection device. * Conscious sedation and right femoral arteriotomy site was closed using the 8-[place] sheath, Angio-Seal. INDICATIONS: The patient with acute CVA, affecting the left side, now to undergo carotid angiography. The patient's carotid duplex shows a high-grade narrowing of the left internal carotid artery with excessive plaquing and calcification. The patient is now to undergo the above-mentioned procedures. DESCRIPTION OF PROCEDURE: The patient was prepped and draped in normal sterile condition with 1% Xylocaine used to anesthetize the right groin. Using a Cook needle, right femoral artery was engaged with Seldinger technique. A 6-[place] sheath was placed in the right femoral artery. Using a 6-[place] JR4 diagnostic catheter, selective left and right carotid and cerebral angiography was performed. Then, the 6-[place] diagnostic JR4 was exchanged with a 6-[place] diagnostic AGUIRRE. Using the AGUIRRE, we were able to cannulate the left common carotid. Then, a stiff angled Terumo wire was used through the AGUIRRE. We were able to perch the stiff angled Terumo into the external carotid. Following that, the 6-[place] sheath was replaced with an 8-[place] sheath. Then, an 8-[place] multipurpose guide catheter was used to cannulate the distal left internal common carotid artery. Once that was done, the stiff angled Terumo wire was removed. An Emboshield wire was placed and the Emboshield was delivered per protocol. Then, a 4 mm x 30 mm Viatrac balloon was used to angioplasty the left internal carotid artery. Following that, a 9 x 7 x 40 mm Xact stent was then deployed across the lesion. There were no complications. The patient tolerated the procedure. No post dilatation was required. RESULTS: * Left and right common carotid artery without any flow restrictive lesion. * Right internal carotid artery without any flow restrictive lesion. Right external carotid artery, mild intimal irregularity with calcification; however, no flow restrictive lesion. * Left internal carotid artery was greater than 90% stenotic, was heavily calcified, extending into the left external carotid artery, status post angioplasty with stent placement of the left internal carotid artery with a 9 x 7 x 40 mm Xact stent with less than 10% residual stenosis. At this time, the patient's neurological status pre and post did not change. The patient still has deficit in the arms, especially on the right side. We will continue to follow the patient. Continue anticoagulation with dual antiplatelet therapy. The patient's blood pressure now needs to be maintained appropriately. Thus, the patient had successful revascularization of the left internal carotid artery with stent placement. Lee Vieira MD SA/GULSHAN TID: [id number] RECEIPT: [id number]
--- NOTE | 2025-02-18 10:33 | DVHPN2 ---
Progress Note Date Seen: February 18, 2025 Medical Necessity Reason Pt with a Central, PICC or Fol: No Subjective Patient reports: No new complaints Review of Systems: HEENT:Normal, CVS:Normal, RESPIRATORY:Normal, GI:Normal, :Normal, MSK:Normal, NEURO:Normal Objective vital signs Vital Sign Date Time Temp Pulse Resp B/P (MAP) Pulse Ox O2 Delivery O2 Flow Rate FiO2 02/18/25 08:00 76 16 95 Room Air* 0 21 02/18/25 05:00 98.4 126/71 (89) 98.4 Total Intake and Output 02/17/25 02/17/25 02/18/25 15:00 23:00 07:00 Intake Total 725 ml 210 ml Balance 725 ml 210 ml medications Current Medications Medications Dose Ordered Sig/Keven Route Start Time Stop Time Status Last Admin Dose Admin Nitroglycerin 0.4 mg Q5MINP PRN SL 02/14/25 18:30 Morphine Sulfate 2 mg Q30M PRN IV 02/14/25 18:30 Pantoprazole Sodium 40 mg DAILY IV 02/14/25 20:30 02/17/25 11:23 40 MG Clopidogrel Bisulfate 75 mg DAILY PO 02/15/25 10:00 02/17/25 09:58 75 MG Aspirin 81 mg DAILY PO 02/15/25 10:00 02/17/25 09:59 81 MG Lorazepam 1 mg ONCE PRN IV 02/14/25 23:30 Acetaminophen 325 mg Q6HP PRN PO 02/15/25 22:00 Cancel Ondansetron HCl 4 mg Q8HPRN PRN IV 02/15/25 22:00 02/15/25 22:51 4 MG Acetaminophen 650 mg Q6HP PRN PO 02/15/25 22:30 02/17/25 21:33 650 MG EZETIMIBE 10 mg DAILY PO 02/17/25 10:00 02/17/25 11:23 10 MG Metoprolol Succinate 50 mg DAILY PO 02/18/25 10:00 Magnesium Oxide 400 mg DAILY PO 02/18/25 10:00 Hydroxychloroquine Sulfate 200 mg DAILY PO 02/18/25 10:00 Examination: GENERAL:Normal, HEENT:Normal, NECK:Normal, LUNGS:Normal, CVS:Normal, ABDOMEN:Normal, MSK:Normal, SKIN:Normal, NEURO:Normal, NEURO:Abnormal (right weakness), :Normal laboratory and microbiology Laboratory Tests 02/18/25 05:31 Test 02/18/25 05:31 Range/Units Serum Glucose 115 H 74-106 mg/dL Microbiology Date/Time Source Procedure Growth Status 02/15/25 02:30 Nose MRSA Screen - Final Complete Problem List/Assessment/Plan Problem List/Assessment/Plan * Acute CVA. The patient will be placed on aspirin and Plavix and will be seen in Neurology consult by Dr. Lanier. * left internal carotid artery stenosis s/p angioplasty and stent * Pancreatic cancer with metastasis status post stent, is currently on chemotherapy. * Hypertension for which she will continue metoprolol. * Pancreatic insufficiency. * Lupus. * Coronary artery status post stent. * Gallstones. * History of previous CVA. * Anemia. advancd care planning- full code- time spent 19 mins Plan discussed with: Patient My Orders My Orders Orders - ELÍAS CYR MD Procedure Category Date Status Time Metoprolol Xl PHA 02/18/25 In Process Succinate (Toprol Xl) 10:00 Magnesium Oxide PHA 02/18/25 In Process Tablet (Mag-Ox Tablet) 10:00 Mechanical Soft Diet DIET 02/17/25 Transmitted Lunch Hydroxychloroquine PHA 02/18/25 In Process Tablet (Plaquenil Tab 10:00 Potassium Er Tablet PHA 02/18/25 Transmitted (Klor-Con Tablet) 10:30 Basic Metabolic Panel LAB 02/19/25 Verified 06:00 Dietary Evaluation Review Recommendations by RD: Increase Calorie Intake Comments: 1) Initiate Glucerna qd 2) Collect HbA1c 3) Follow-up with neurology, oncology, and cardiology 4) Continue to monitor I&O, labs, and skin integrity Expected Outcomes/Goals: 1) appetite and labs to improve 2) f/u in 3-5 days Date of Service: February 18, 2025 Billing Provider: ELÍAS CYR MD Common Visit Codes: 06823-[id number] INP/OBS CARE(HIGH) Secondary Visit Codes: [id number] CARE PLAN 30 MINUTES ELÍAS CYR MD February 18, 2025 10:33
[2025-02-18] MEDS: hydrOXYchloroQUINE SULFATE 200 MG TAB PO SCH (12:24)
[2025-02-18] MEDS: METOPROLOL SUCCINATE XL 50 MG TAB PO SCH (12:24)
[2025-02-18] MEDS: MAGNESIUM OXIDE 400 MG TAB PO SCH (12:25)
[2025-02-18] MEDS: POTASSIUM CHL 20 Meq TABLET PO ONE (12:25)
--- NOTE | 2025-02-18 20:24 | DVHPN2 ---
Progress Note - Dictate Date Seen: February 18, 2025 Medical Necessity Reason Pt with a Central, PICC or Fol: No Subjective Ms. Martinez is a 79 years old right-handed female with a history of hypertension, coronary artery disease, rheumatoid arthritis, anemia, gallstone, pancreatic cancer with metastatic disease, she came to the [facility] on 11/20/2024 with a chief complaint of acute stroke syndrome. She had multiple strokes in 09/2024, that was further described I have seen examined the patient, talked to her nurse, the case was discussed with He status post angio plasty with Dr. Spencer She is doing fine, no new complaints. Urine urinalysis, 02/14/2025: Unremarkable WBC/HB/PLT/MCV, 02/14/2025: 3.5/9.7/397/93 CMP, 02/14/2025: Unremarkable TG/HDL/LDL/HDL, 08/2024: 121/152/105/34 Carotid Doppler, 10/10/2024: 1. stenosis noted in the right carotid system.50- 69% stenosis in the right internal carotid. 2. 50-69% stenosis of the left 3. internal carotid. 4. Echogenic plaque noted 5. at 6. carotid 7. bifurcation on the left. Echocardiogram, 10/12/2024: EF >55% MILD TR MILD MR NO PERICARDIAL EFFUSION CT head wwo, 02/14/2025: 1. No CT evidence of acute intracranial abnormality. 2. No enhancing mass or abnormal postcontrast enhancement visualized. 3. Nonacute findings as described abov CT head, 02/14/2025: 1. Cortical atrophy 2. Findings of the ischemic infarct posterior right parietal lobe unchanged from 9:37 a.m, on 02/14/2025 Carotid angio, 02/18/25: * Left and right common carotid artery without any flow restrictive lesion. * Right internal carotid artery without any flow restrictive lesion. Right external carotid artery, mild intimal irregularity with calcification; however, no flow restrictive lesion. * Left internal carotid artery was greater than 90% stenotic, was heavily calcified, extending into the left external carotid artery, status post angioplasty with stent placement of the left internal carotid artery with a 9 x 7 x 40 mm Xact stent with less than 10% residual stenosis MRI head, 10/10/2024: 1. Moderate size area of acute to subacute infarct in the right parietal lobe. There is no evidence of acute hemorrhage, surrounding edema or associated mass effect. 2. Additional small area of acute to subacute infarct in the posterior right occipital lobe and in the midline cerebellum posterior to the 4th ventricle MRI head, 02/15/2025: 1. Acute / recent small infarct in the left yost radiata. 2. Evolving subacute to chronic infarct in the right parietal lobe which was present as an acute infarct from MRI brain dated 10/10/2024. 3. Generalized cerebral volume loss and moderate chronic microvascular ischemic change. vital signs Vital Sign Date Time Temp Pulse Resp B/P (MAP) Pulse Ox O2 Delivery O2 Flow Rate FiO2 02/18/25 17:00 97.6 68 16 129/73 (91) 96 97.6 02/18/25 08:00 Room Air* 0 21 Total Intake and Output 02/17/25 02/17/25 02/18/25 15:00 23:00 07:00 Intake Total 725 ml 210 ml Balance 725 ml 210 ml medications Current Medications Medications Dose Ordered Sig/Keven Route Start Time Stop Time Status Last Admin Dose Admin Nitroglycerin 0.4 mg Q5MINP PRN SL 02/14/25 18:30 Morphine Sulfate 2 mg Q30M PRN IV 02/14/25 18:30 Pantoprazole Sodium 40 mg DAILY IV 02/14/25 20:30 02/18/25 12:24 40 MG Clopidogrel Bisulfate 75 mg DAILY PO 02/15/25 10:00 02/18/25 12:25 75 MG Aspirin 81 mg DAILY PO 02/15/25 10:00 02/18/25 12:24 81 MG Lorazepam 1 mg ONCE PRN IV 02/14/25 23:30 Acetaminophen 325 mg Q6HP PRN PO 02/15/25 22:00 Cancel Ondansetron HCl 4 mg Q8HPRN PRN IV 02/15/25 22:00 02/15/25 22:51 4 MG Acetaminophen 650 mg Q6HP PRN PO 02/15/25 22:30 02/17/25 21:33 650 MG EZETIMIBE 10 mg DAILY PO 02/17/25 10:00 02/18/25 12:43 10 MG Metoprolol Succinate 50 mg DAILY PO 02/18/25 10:00 02/18/25 12:24 50 MG Magnesium Oxide 400 mg DAILY PO 02/18/25 10:00 02/18/25 12:25 400 MG Hydroxychloroquine Sulfate 200 mg DAILY PO 02/18/25 10:00 02/18/25 12:24 200 MG objective General: the patient is well developed and nourished. No acute distress. MENTAL STATUS: Awake and alert. Oriented to person, place, time and general circumstances. Able to give personal history. SPEECH, LANGUAGE, HIGHER CORTICAL FUNCTION: Mild dysarthria, possible mild expressive aphasia CRANIAL NERVES: Pupils are equal, round and reactive. EOMs full and conjugate. Facial sensation intact in all three divisions bilaterally. Mandibular strength intact. Right facial weakness of upper motor neuron pattern. Tongue is deviated to the right side SENSATION: Sensation to touch and pinprick is normal. MOTOR: Normal tone in the upper and lower extremity. Normal muscle bulk. No fasciculations. No abnormal movements or posturing. Muscle strength of the major groups in the extremities is 5/5 except for 4/5 in the right upper extremities. REFLEXES: Deep tendon reflexes are symmetrical. No pathological reflexes. CEREBELLAR/COORDINATION: Finger to nose is normal bilaterally. GAIT/STATION: deferred laboratory and microbiology Laboratory Tests 02/18/25 05:31 Test 02/18/25 05:31 Range/Units Serum Glucose 115 H 74-106 mg/dL Problem List Acute speech disturbance, right facial and right arm weakness, rule out acute stroke Multiple acute stroke on 10/07/2024 Advanced pancreatic cancer Severe left ICA stenosis status post angioplasty on 02/18/2025 Assessment/Plan Monitoring Supportive treatment Telemetry Speech pathology evaluation EUNICE Aspirin 81 mg daily Plavix 75 mg daily Zetia 10 mg daily GI prophylax/Protonix DVT prophylax/SCD More recommendation per clinical course This medical document was created using an electronic medical record system with [employer] dictation system. Although this document has been carefully reviewed, there may still be some phonetic and typographical errors. These areas are purely typographical due to imperfections of the software programs, and do not reflect any compromise in the patient's medical care. Prognosis poor Dietary Evaluation Review Recommendations by RD: Increase Calorie Intake Comments: 1) Initiate Glucerna qd 2) Collect HbA1c 3) Follow-up with neurology, oncology, and cardiology 4) Continue to monitor I&O, labs, and skin integrity Expected Outcomes/Goals: 1) appetite and labs to improve 2) f/u in 3-5 days Plan discussed with: Other COSME HUANG MD February 18, 2025 20:24
[2025-02-19 01:00] VITALS: BP 142/65; PULSE 71; RESP 16; TEMP 97.7; O2SAT 96
[2025-02-19 05:00] VITALS: BP 151/87; PULSE 87; RESP 22; TEMP 97.7; O2SAT 97
[2025-02-19 06:16] LABS: Anion Gap 8 (5-15); Carbon Dioxide 23 mmol/L (20-31); Sodium 141 mmol/L (136-145)
[2025-02-19 06:17] LABS: Calcium 8.9 mg/dL (8.7-10.4)
[2025-02-19 06:22] LABS: BUN/Creatinine Ratio 20.3 (10.0-20.0); Blood Urea Nitrogen 13 mg/dL (9-23)
[2025-02-19 06:24] LABS: Chloride 110 mmol/L (98-107); Glucose 174 mg/dL (74-106); Potassium 3.2 mmol/L (3.5-5.1)
[2025-02-19 08:20] VITALS: PULSE 70
[2025-02-19 09:00] VITALS: BP 122/68; PULSE 72; RESP 16; TEMP 98; O2SAT 96
[2025-02-19] MEDS ORDERED: CLOP75TA28 PO (09:55)
--- NOTE | 2025-02-19 10:19 | DVHDS ---
DATE OF DISCHARGE: 02/19/2025 The patient is an 79-year-old lady who was admitted after she had sudden-onset weakness on the right side with left-sided facial deviation. The patient has history of pancreatic cancer with metastasis, currently on chemotherapy as well as history of previous CVA, coronary artery disease, pancreatic insufficiency, lupus, and hypertension. HOSPITAL COURSE: The patient was seen in Cardiology consult by Dr. Howard. The patient underwent a brain MRI that showed acute left thalamic yost radiata infarct. The patient underwent angiography of the carotids with subsequent stent placement and angioplasty of the left internal carotid artery. As per my discussion with Dr. Howard, the patient can now go home to resume her home medications as well as to be on Plavix 75 mg daily. She will resume her home physical therapy. FINAL DIAGNOSES: * Acute CVA. * Left internal carotid artery stenosis, status post angioplasty and stent. * Pancreatic cancer with metastases. * Hypertension. * Diabetes mellitus. * Pancreatic insufficiency. * Lupus. * Coronary artery disease with stent. * Anemia. * History of gallstones. Time spent in discharge planning and review of plan with the patient and nursing was 39 minutes. MD CHIARA Mon/MARYANNE TID: [id number] RECEIPT: [id number]
[2025-02-19 11:14] VITALS: BP 123/58; PULSE 74; TEMP 36.7
[2025-02-19] MEDS: POTASSIUM CHL 20 Meq TABLET PO ONE (11:45)
--- NOTE | 2025-02-19 13:39 | DVHPN2 ---
Progress Note - Dictate Date Seen: February 19, 2025 Medical Necessity Reason Pt with a Central, PICC or Fol: No Subjective PT DIRECT ADMIT BECAUSE OF NEUROLOGIC DEFICIT CONSISTENT WITH CVA PANCREATIC CA S/P STENT ANEMIA GALLSTONES CAROTID STENOSIS HX OF CVA LUNG MASS S/P BOPSY RA CAROTID STENOSIS MRI 1. Acute / recent small infarct in the left yost radiata. 2. Evolving subacute to chronic infarct in the right parietal lobe which was present as an acute infarct from MRI brain dated 10/10/2024. 3. Generalized cerebral volume loss and moderate chronic microvascular ischemic change. CAROTID U/S 1. stenosis noted in the right carotid system.50-69% stenosis in the right internal carotid. 2. 50-69% stenosis of the left 3. internal carotid. 4. Echogenic plaque noted vital signs Vital Sign Date Time Temp Pulse Resp B/P (MAP) Pulse Ox O2 Delivery O2 Flow Rate FiO2 02/19/25 11:14 36.7 74 02/19/25 10:05 123/58 02/19/25 09:00 16 96 02/19/25 08:20 Room Air* 0 21 Total Intake and Output 02/18/25 02/18/25 02/19/25 15:00 23:00 07:00 Intake Total 460 ml 467 ml Balance 460 ml 467 ml medications Current Medications Medications Dose Ordered Sig/Keven Route Start Time Stop Time Status Last Admin Dose Admin Nitroglycerin 0.4 mg Q5MINP PRN SL 02/14/25 18:30 Morphine Sulfate 2 mg Q30M PRN IV 02/14/25 18:30 Pantoprazole Sodium 40 mg DAILY IV 02/14/25 20:30 02/19/25 10:05 40 MG Clopidogrel Bisulfate 75 mg DAILY PO 02/15/25 10:00 02/19/25 10:00 75 MG Aspirin 81 mg DAILY PO 02/15/25 10:00 02/19/25 10:00 81 MG Lorazepam 1 mg ONCE PRN IV 02/14/25 23:30 Acetaminophen 325 mg Q6HP PRN PO 02/15/25 22:00 Cancel Ondansetron HCl 4 mg Q8HPRN PRN IV 02/15/25 22:00 02/15/25 22:51 4 MG Acetaminophen 650 mg Q6HP PRN PO 02/15/25 22:30 02/18/25 22:45 650 MG EZETIMIBE 10 mg DAILY PO 02/17/25 10:00 02/19/25 10:03 10 MG Metoprolol Succinate 50 mg DAILY PO 02/18/25 10:00 02/19/25 10:05 50 MG Magnesium Oxide 400 mg DAILY PO 02/18/25 10:00 02/19/25 10:02 400 MG Hydroxychloroquine Sulfate 200 mg DAILY PO 02/18/25 10:00 02/19/25 10:00 200 MG laboratory and microbiology Laboratory Tests 02/19/25 05:14 02/18/25 05:31 Test 02/19/25 05:14 Range/Units Serum Glucose 174 H 74-106 mg/dL Problem List DIRECT ADMIT BECAUSE OF NEUROLOGIC DEFICIT CONSISTENT WITH CVA PANCREATIC CA S/P STENT ANEMIA GALLSTONES CAROTID STENOSIS HX OF CVA LUNG MASS S/P BOPSY RA CAROTID STENOSIS MRI 1. Acute / recent small infarct in the left yost radiata. 2. Evolving subacute to chronic infarct in the right parietal lobe which was present as an acute infarct from MRI brain dated 10/10/2024. 3. Generalized cerebral volume loss and moderate chronic microvascular ischemic change. CAROTID U/S 1. stenosis noted in the right carotid system.50-69% stenosis in the right internal carotid. 2. 50-69% stenosis of the left 3. internal carotid. 4. Echogenic plaque noted Assessment/Plan PLAVIX CONSIDER CAROTID ANGIO ANGIO THIS AM S/P [employer] STENT LEFT ICA Dietary Evaluation Review Recommendations by RD: Increase Calorie Intake Comments: 1) Initiate Glucerna qd 2) Collect HbA1c 3) Follow-up with neurology, oncology, and cardiology 4) Continue to monitor I&O, labs, and skin integrity Expected Outcomes/Goals: 1) appetite and labs to improve 2) f/u in 3-5 days Plan discussed with: Patient, Spouse JOSE ANGEL HALE MD February 19, 2025 13:39
== END 2025-02-19 13:10 | disposition home health service (06) | DRG 34 ==
LOC: EAST 18:15 → TELE-EAST 20:17
PROVIDERS: ADMIT Internal Medicine; ATTEND Internal Medicine
PROC: B315YZZ Fluoroscopy of Bilateral Common Carotid Arteries using Other Contrast (ICD-10-PCS; principal; 2025-02-18)
PROC: 037L3DZ Dilation of Left Internal Carotid Artery with Intraluminal Device, Percutaneous Approach (ICD-10-PCS; 2025-02-18)
PROC: B318YZZ Fluoroscopy of Bilateral Internal Carotid Arteries using Other Contrast (ICD-10-PCS; 2025-02-18)
PROC: B31CYZZ Fluoroscopy of Bilateral External Carotid Arteries using Other Contrast (ICD-10-PCS; 2025-02-18)
DX: I65.22 Occlusion and stenosis of left carotid artery (principal); I63.9 Cerebral infarction, unspecified; C25.9 Malignant neoplasm of pancreas, unspecified; C78.7 Secondary malignant neoplasm of liver and intrahepatic bile duct; G81.91 Hemiplegia, unspecified affecting right dominant side; D64.9 Anemia, unspecified; K80.20 Calculus of gallbladder without cholecystitis without obstruction; I10 Essential (primary) hypertension; R29.810 Facial weakness; I25.10 Atherosclerotic heart disease of native coronary artery without angina pectoris; E11.9 Type 2 diabetes mellitus without complications; F17.200 Nicotine dependence, unspecified, uncomplicated; M06.9 Rheumatoid arthritis, unspecified; R47.81 Slurred speech; Z88.1 Allergy status to other antibiotic agents; Z88.2 Allergy status to sulfonamides; Z88.8 Allergy status to other drugs, medicaments and biological substances; Z91.041 Radiographic dye allergy status; Z79.899 Other long term (current) drug therapy; Z85.07 Personal history of malignant neoplasm of pancreas; Z92.21 Personal history of antineoplastic chemotherapy; Z86.73 Personal history of transient ischemic attack (TIA), and cerebral infarction without residual deficits; Z82.49 Family history of ischemic heart disease and other diseases of the circulatory system; Z80.3 Family history of malignant neoplasm of breast; Z79.82 Long term (current) use of aspirin; Z79.1 Long term (current) use of non-steroidal anti-inflammatories (NSAID); Z79.02 Long term (current) use of antithrombotics/antiplatelets; Z95.5 Presence of coronary angioplasty implant and graft; Z79.01 Long term (current) use of anticoagulants; Z95.820 Peripheral vascular angioplasty status with implants and grafts
CPT/HCPCS: 36415; 70450; 70470; 70551; 71045; 80048; 80053; 81001; 83036; 83735; 85025; 85610; 85730; 87081; 92610; 93005; 96374; 96375; 97110; 97116; 97163; 97530; 99152; G0378; G0463; J1100; J1642; J2250; J2405; J2470; J3490

== ENCOUNTER → 2025-02-14 | Outpatient (CLI) | payer MEDICARE, BC ==
[~2025-02-14] MED LIST changes: +CLOP75TA28 PO; +IOHEXOL 350 MG/ML 100ML IJ ONE; +SENN-58 PO
[2025-02-14 09:30] VITALS: BP 145/72; PULSE 96; RESP 16; O2SAT 99
[2025-02-14] MEDS: diphenhdrAMINE HCL 50 MG/1 ML VL ONE (09:35)
[2025-02-14] MEDS: methylPREDNISolone SOD SUCC 125 MG/2 ML VL ONE (09:35)
[2025-02-14] MEDS: diphenhdrAMINE HCL 50 MG/1 ML VL IV ONE (09:37)
[2025-02-14] MEDS: methylPREDNISolone SOD SUCC 125 MG/2 ML VL IV ONE (09:38)
[2025-02-14 09:55] VITALS: BP 157/76; PULSE 90; RESP 16; O2SAT 99
--- NOTE | 2025-02-14 11:44 | DVH ---
CLINICAL INFORMATION: 79 years old, Female; HEADACHES. TECHNIQUE: Axial imaging was obtained through the brain 2 and after the uneventful administration of 100 mL Omnipaque 300 IV contrast. Coronal and sagittal reformatted images were obtained, reviewed, an d stored. Images were reviewed in brain and bone windows. All CT scans at this medical facility are performed using dose modulation techniques as appropriate to a performed exam including the following : Automated exposure control was utilized; adjustment of the MA and/or KV according to patient size; and use of iterative reconstruction technique. CTDIvol = 99.24 mGy DLP = 1684.67 mGy-cm COMPARISON: CT HEAD WITHOUT CONTRAST on DOS: 12/08/24, CT HEAD WITHOUT CONTRAST on DOS: 10/09/24 FINDINGS: No acute intracranial hemorrhage. No enhancing mass or abnormal postcontrast enhancement vi sualized. Scattered areas of hypoattenuation are seen in the periventricular and subcortical white ma tter, which are nonspecific but most likely sequelae of small vessel ischemic disease. More focal are a of encephalomalacia is seen in the right parietal lobe, may be sequela of chronic infarct, unchange d. Atrophic changes with dilation of the ventricles and widening of the sulci. Basal cisterns are pat ent. The calvarium is unremarkable. Paranasal sinuses and mastoid air cells are clear. IMPRESSION: 1. No CT evidence of acute intracranial abnormality. 2. No enhancing mass or abnormal postcontrast enhancement visualized. 3. Nonacute findings as described above
== END | disposition home or self-care (01) ==
LOC: Rad HDHVI 09:01
PROVIDERS: ATTEND Internal Medicine Cardiovascular Disease
DX: I13.0 Hypertensive heart and chronic kidney disease with heart failure and stage 1 through stage 4 chronic kidney disease, or unspecified chronic kidney disease (principal)
CPT/HCPCS: 70470; 96374; 96375; G0463; J1642

== ENCOUNTER 2025-03-24 11:24 | Outpatient (CLI) | payer MEDICARE, BC ==
[2025-03-24 11:15] VITALS: BP 178/87; PULSE 78; RESP 16; O2SAT 98
[~2025-03-24 11:24] MED LIST changes: +CLOP75TA28 PO; +SENN-58 PO
[2025-03-24] MEDS: MULTIPLE VIT 10 ML IV ONE (11:28)
[2025-03-24] MEDS: MVI in SODIUM CHLORIDE 0.9% 500 ML IVB ONE (11:33)
[2025-03-24] MEDS: KETOROLAC TROMETH 60MG/2ML VIAL IM ONE (12:07)
[2025-03-24] MEDS: KETOROLAC TROMETH 60MG/2ML VIAL ONE (12:21)
[2025-03-24] MEDS: cloNIDine HCL 0.1 MG TAB PO ONE (13:02)
[2025-03-24] MEDS: cloNIDine HCL 0.1 MG TAB ONE (13:03)
[2025-03-24 14:24] VITALS: BP 113/62; PULSE 71; RESP 16; O2SAT 98
== END 2025-03-24 17:00 | disposition home or self-care (01) ==
LOC: CHF HDHVI 11:24
PROVIDERS: ATTEND Internal Medicine Cardiovascular Disease
DX: E86.0 Dehydration (principal); R53.83 Other fatigue; I13.0 Hypertensive heart and chronic kidney disease with heart failure and stage 1 through stage 4 chronic kidney disease, or unspecified chronic kidney disease; E11.22 Type 2 diabetes mellitus with diabetic chronic kidney disease; I50.9 Heart failure, unspecified; N18.4 Chronic kidney disease, stage 4 (severe); I25.10 Atherosclerotic heart disease of native coronary artery without angina pectoris; E78.5 Hyperlipidemia, unspecified; E03.9 Hypothyroidism, unspecified; M06.9 Rheumatoid arthritis, unspecified; M19.90 Unspecified osteoarthritis, unspecified site; Z79.899 Other long term (current) drug therapy; Z79.01 Long term (current) use of anticoagulants; Z79.82 Long term (current) use of aspirin; Z87.891 Personal history of nicotine dependence; Z95.5 Presence of coronary angioplasty implant and graft; Z85.07 Personal history of malignant neoplasm of pancreas; Z86.73 Personal history of transient ischemic attack (TIA), and cerebral infarction without residual deficits
CPT/HCPCS: 96365; 96366; 96372; G0463; J1642; J1885; J3411; J3475; J7040; 96360; 96361

== ENCOUNTER 2025-04-09 09:57 | Outpatient (CLI) | payer MEDICARE, BC ==
[2025-04-09 09:58] VITALS: BP 188/92; PULSE 79; RESP 18; O2SAT 99
[2025-04-09] MEDS: MULTIPLE VIT 10 ML IV ONE (10:05)
[2025-04-09] MEDS: MEROPENEM 1GM IVPB 100 ML IV ONE (10:05)
[2025-04-09] MEDS: MEROPENEM 1GM IVPB 50 ML IV ONE ×2 (10:09→11:00)
[2025-04-09] MEDS: cloNIDine HCL 0.1 MG TAB PO ONE (11:52)
[2025-04-09] MEDS: cloNIDine HCL 0.1 MG TAB ONE (11:53)
[2025-04-09] MEDS: MVI in SODIUM CHLORIDE 0.9% 500 ML IVB ONE (11:54)
[2025-04-09 14:05] VITALS: BP 140/66; PULSE 69; RESP 18; O2SAT 99
== END 2025-04-09 17:00 | disposition home or self-care (01) ==
LOC: CHF HDHVI 09:57
PROVIDERS: ATTEND Internal Medicine Cardiovascular Disease
DX: N39.0 Urinary tract infection, site not specified (principal); E86.0 Dehydration; I13.0 Hypertensive heart and chronic kidney disease with heart failure and stage 1 through stage 4 chronic kidney disease, or unspecified chronic kidney disease; E11.22 Type 2 diabetes mellitus with diabetic chronic kidney disease; I50.9 Heart failure, unspecified; N18.4 Chronic kidney disease, stage 4 (severe); I25.10 Atherosclerotic heart disease of native coronary artery without angina pectoris; M06.9 Rheumatoid arthritis, unspecified; E78.5 Hyperlipidemia, unspecified; E03.9 Hypothyroidism, unspecified; Z79.02 Long term (current) use of antithrombotics/antiplatelets; Z79.1 Long term (current) use of non-steroidal anti-inflammatories (NSAID); Z87.891 Personal history of nicotine dependence; Z85.07 Personal history of malignant neoplasm of pancreas; Z95.5 Presence of coronary angioplasty implant and graft
CPT/HCPCS: 96365; 96366; 96367; G0463; J1642; J2185; J3411; J3475; J7040; 96361

== ENCOUNTER 2025-04-15 10:45 | Outpatient (CLI) | payer MEDICARE, BC ==
[~2025-04-15] VITALS: Ht 30.5 cm; Wt 0.5 kg
[2025-04-15 10:50] VITALS: BP 156/88; PULSE 79; RESP 16; O2SAT 96
[2025-04-15] MEDS: MULTIPLE VIT 10 ML IV ONE (11:22)
[2025-04-15] MEDS: KETOROLAC TROMETH 60MG/2ML VIAL ONE (12:49)
[2025-04-15] MEDS: KETOROLAC TROMETH 60MG/2ML VIAL IM ONE (12:50)
[2025-04-15] MEDS: MVI in SODIUM CHLORIDE 0.9% 500 ML IVB ONE (13:39)
[2025-04-15 13:50] VITALS: BP 158/72; PULSE 73; RESP 16; O2SAT 96
== END 2025-04-15 17:00 | disposition home or self-care (01) ==
LOC: CHF HDHVI 10:45
PROVIDERS: ATTEND Internal Medicine Cardiovascular Disease
DX: E86.0 Dehydration (principal); R53.83 Other fatigue; I13.0 Hypertensive heart and chronic kidney disease with heart failure and stage 1 through stage 4 chronic kidney disease, or unspecified chronic kidney disease; E11.22 Type 2 diabetes mellitus with diabetic chronic kidney disease; I50.9 Heart failure, unspecified; N18.4 Chronic kidney disease, stage 4 (severe); I25.10 Atherosclerotic heart disease of native coronary artery without angina pectoris; M06.9 Rheumatoid arthritis, unspecified; E03.9 Hypothyroidism, unspecified; E78.5 Hyperlipidemia, unspecified; Z79.01 Long term (current) use of anticoagulants; Z79.02 Long term (current) use of antithrombotics/antiplatelets; Z79.1 Long term (current) use of non-steroidal anti-inflammatories (NSAID); Z87.891 Personal history of nicotine dependence; Z85.07 Personal history of malignant neoplasm of pancreas; Z95.5 Presence of coronary angioplasty implant and graft
CPT/HCPCS: 96365; 96366; 96372; G0463; J1642; J1885; J3411; J3475; J7040; 96360; 96361

== ENCOUNTER 2025-05-06 09:40 | Outpatient (CLI) | payer MEDICARE, BC ==
[2025-05-06] MEDS: MULTIPLE VIT 10 ML IV ONE (09:48)
[2025-05-06 09:51] VITALS: BP 175/93; PULSE 87; RESP 20; O2SAT 98
[2025-05-06] MEDS: MVI in SODIUM CHLORIDE 0.9% 500 ML IVB ONE (09:54)
[2025-05-06 12:10] VITALS: BP 135/68; PULSE 75; RESP 18; O2SAT 98
== END 2025-05-06 17:00 | disposition home or self-care (01) ==
LOC: CHF HDHVI 09:40
PROVIDERS: ATTEND Internal Medicine Cardiovascular Disease
DX: E86.0 Dehydration (principal); R53.83 Other fatigue; I13.0 Hypertensive heart and chronic kidney disease with heart failure and stage 1 through stage 4 chronic kidney disease, or unspecified chronic kidney disease; E11.22 Type 2 diabetes mellitus with diabetic chronic kidney disease; I50.9 Heart failure, unspecified; N18.4 Chronic kidney disease, stage 4 (severe); I25.10 Atherosclerotic heart disease of native coronary artery without angina pectoris; E78.5 Hyperlipidemia, unspecified; E03.9 Hypothyroidism, unspecified; M06.9 Rheumatoid arthritis, unspecified; Z79.01 Long term (current) use of anticoagulants; Z79.02 Long term (current) use of antithrombotics/antiplatelets; Z79.1 Long term (current) use of non-steroidal anti-inflammatories (NSAID); Z87.891 Personal history of nicotine dependence; Z95.5 Presence of coronary angioplasty implant and graft; Z86.73 Personal history of transient ischemic attack (TIA), and cerebral infarction without residual deficits
CPT/HCPCS: 96365; 96366; G0463; J1642; J3411; J3475; J7040; 96360; 96361

== ENCOUNTER 2025-06-18 10:29 | Outpatient (CLI) | payer MEDICARE, BC ==
[2025-06-18 10:41] VITALS: BP 137/92; PULSE 100; RESP 16; O2SAT 98
[2025-06-18] MEDS: MULTIPLE VIT 10 ML IV ONE (10:49)
[2025-06-18] MEDS: ONDANSETRON HCL 4 MG/2 ML VIAL ONE (10:49)
[2025-06-18] MEDS: ONDANSETRON HCL 4 MG/2 ML VIAL IV ONE (10:52)
[2025-06-18] MEDS: MVI in SODIUM CHLORIDE 0.9% 500 ML IVB ONE (10:53)
[2025-06-18 13:06] VITALS: BP 157/86; PULSE 73; RESP 16; O2SAT 98
== END 2025-06-18 17:00 | disposition home or self-care (01) ==
LOC: CHF HDHVI 10:29
PROVIDERS: ATTEND Internal Medicine Cardiovascular Disease
DX: E86.0 Dehydration (principal); R11.0 Nausea; I13.0 Hypertensive heart and chronic kidney disease with heart failure and stage 1 through stage 4 chronic kidney disease, or unspecified chronic kidney disease; E11.22 Type 2 diabetes mellitus with diabetic chronic kidney disease; I50.9 Heart failure, unspecified; N18.4 Chronic kidney disease, stage 4 (severe); I25.10 Atherosclerotic heart disease of native coronary artery without angina pectoris; E78.5 Hyperlipidemia, unspecified; E03.9 Hypothyroidism, unspecified; M06.9 Rheumatoid arthritis, unspecified; M32.9 Systemic lupus erythematosus, unspecified; Z79.01 Long term (current) use of anticoagulants; Z79.82 Long term (current) use of aspirin; Z79.899 Other long term (current) drug therapy; Z87.891 Personal history of nicotine dependence; Z85.07 Personal history of malignant neoplasm of pancreas; Z95.1 Presence of aortocoronary bypass graft
CPT/HCPCS: 96365; 96366; 96375; G0463; J1642; J2405; J3411; J3475; J7040; 96360; 96361

== ENCOUNTER → 2025-06-20 | Outpatient (CLI) | payer MEDICARE, BC ==
[2025-06-20 13:09] VITALS: BP 197/110; PULSE 72; RESP 18; O2SAT 98
[2025-06-20] MEDS: MEROPENEM 1GM IVPB 100 ML IV ONE (13:15)
[2025-06-20] MEDS: MULTIPLE VIT 10 ML IV ONE (13:15)
[2025-06-20] MEDS: MVI in SODIUM CHLORIDE 0.9% 500 ML IVB ONE (13:20)
[2025-06-20] MEDS: MEROPENEM 1GM IVPB 50 ML IV ONE ×2 (13:26→14:33)
[2025-06-20 15:36] VITALS: BP 187/94; PULSE 72; RESP 18; O2SAT 98
== END | disposition home or self-care (01) ==
LOC: CHF HDHVI 13:05
PROVIDERS: ATTEND Internal Medicine Cardiovascular Disease
DX: E86.0 Dehydration (principal); N39.0 Urinary tract infection, site not specified; I13.0 Hypertensive heart and chronic kidney disease with heart failure and stage 1 through stage 4 chronic kidney disease, or unspecified chronic kidney disease; E11.22 Type 2 diabetes mellitus with diabetic chronic kidney disease; I50.9 Heart failure, unspecified; N18.4 Chronic kidney disease, stage 4 (severe); C25.9 Malignant neoplasm of pancreas, unspecified; C78.7 Secondary malignant neoplasm of liver and intrahepatic bile duct; C78.01 Secondary malignant neoplasm of right lung; C78.02 Secondary malignant neoplasm of left lung; I25.10 Atherosclerotic heart disease of native coronary artery without angina pectoris; E78.5 Hyperlipidemia, unspecified; E03.9 Hypothyroidism, unspecified; M06.9 Rheumatoid arthritis, unspecified; Z79.01 Long term (current) use of anticoagulants; Z79.02 Long term (current) use of antithrombotics/antiplatelets; Z79.82 Long term (current) use of aspirin; Z79.1 Long term (current) use of non-steroidal anti-inflammatories (NSAID); Z87.891 Personal history of nicotine dependence; Z79.899 Other long term (current) drug therapy; Z95.1 Presence of aortocoronary bypass graft; Z86.73 Personal history of transient ischemic attack (TIA), and cerebral infarction without residual deficits; Z88.1 Allergy status to other antibiotic agents; Z88.8 Allergy status to other drugs, medicaments and biological substances; Z88.2 Allergy status to sulfonamides
CPT/HCPCS: 96365; 96366; 96368; G0463; J1642; J2185; J3411; J3475; J7040; 96361

== ENCOUNTER 2025-07-07 08:40 | Inpatient (IN) | payer MEDICARE, BC ==
[~2025-07-07] VITALS: Ht 160 cm; Wt 57.7 kg
[2025-07-07] VITALS (9 sets, daily range): BP systolic 128–166; BP diastolic 70–95; PULSE 79–145; RESP 16–21; TEMP 97.9–98.5; O2SAT 95–100
--- NOTE | 2025-07-07 08:57 | ED.PDOC ---
History of Present Illness HPI Comments 79 year old female with a PMHx anemia, arthritis, CAD, CVA, gallstones, HTN, pancreatic cancer stage 4 presents to the ED via EMS with a chief complaint of generalized weakness onset 1 day. Per EMS, patient has been experiencing generalized weakness for the past day, nausea, vomiting, hematemesis since last night. Patient has stage 4 pancreatic cancer, had chemo on 07/03/25, was told hemoglobin was low, currently being treated at [facility]. Upon EMS arrival patient was hypertensive, BP 189 systolic. Denies fever, chills, chest pain, shortness of breath. No other symptoms or modifying factors present at this time. Time Seen by MD: 08:50 Primary Care Provider: JOSE ANGEL Reviewed Notes: Medications, Allergies Allergies: Coded Allergies: Ciprofloxacin (Verified Allergy, Unknown, 02/21/18) Iodine (Verified Allergy, Unknown, 06/23/17) Penicillins (Verified Allergy, Unknown, 07/07/25) Simvastatin (Verified Allergy, Unknown, 10/10/24) BONE PAIN Sulfa Antibiotics (Verified Allergy, Unknown, 06/23/17) Home Meds Active Scripts Clopidogrel Bisulfate (Plavix) 75 Mg Tab, 75 MG PO DAILY for 30 Days, #30 TAB 3 Refills Prov:ELÍAS CYR MD 02/19/25 Cefdinir (Cefdinir) 300 Mg Cap, 1 CAP PO BID for 7 Days, #14 CAP Prov:ELÍAS CYR MD 12/11/24 Ezetimibe (Zetia) 10 Mg Tab, 10 MG PO DAILY for 30 Days, #30 TAB 3 Refills Prov:ELÍAS CYR MD 10/30/24 Aspirin (ASPIRIN 81) 81 Mg Tab, 81 MG PO DAILY for 30 Days, #30 TAB 3 Refills Prov:ELÍAS CYR MD 10/30/24 Reported Medications Senna (Senokot) 8.6 Mg Tab, 1 TAB PO BID, #40 TAB 02/17/25 Pancreatic Enzymes (Pancreaze) 4,200 Unit Cap, 4200 UNIT PO, CAP 12/09/24 Hydroxychloroquine Sulfate (Hydroxychloroquine Sulfat) 200 Mg Tab, 1 TAB DAILY 10/24/24 Potassium Chloride (Potassium Chloride ER) 20 Meq Tab, 1 TAB PO DAILY 10/24/24 Folic Acid (Folic Acid) 1 Mg Tab, 1 TAB PO DAILY 10/24/24 Metoprolol Succinate (Metoprolol Succinate Er) 50 Mg Tab, 1 TAB PO DAILY 10/24/24 Magnesium Chloride (Slow-Mag) Tab, 2 TAB PO DAILY, TAB 10/08/24 Linseed Oil (Flax Seed Oil) 1,000 Mg Cap, 1000 MG PO, CAP 10/08/24 Cholecalciferol (VITAMIN D3) 2,000 Unit Tab, 1 TAB PO DAILY, #30 TAB 5 Refills 10/08/24 Ibuprofen Micronized (MOTRIN TABLET) 600 Mg Tb, 600 MG PO TID, #40 TAB *Black box warning-NSAIDS can increase risk of DE & hypertension, GI irritation, ulceration, bleed, perferation. Do not use post cardiac surgery. Use short duration/lowest effective dose. 10/08/24 Information Source: Patient, Emergency Med Personnel Mode of Arrival: EMS Severity: Moderate Timing: Days Duration: Since onset Prehospital treatment: None Past Medical History PAST MEDICAL HISTORY: Anemia, Arthritis, CAD, Cancer, CVA, Gallstones, HTN Surgical History: Denies all surgeries LAND DEVELOPMENT MANAGER History: Denies all LAND DEVELOPMENT MANAGER Hx Family History Family History: Unknown Social History Smoker: Non-Smoker Alcohol: Denies ETOH Use Drugs: Denies Drug Use Lives In: Home Constitutional: reports: weakness; denies: chills, diaphoresis, fatigue, fever, malaise, sweats, others EENTM: denies: blurred vision, double vision, ear bleeding, ear discharge, ear drainage, ear pain, ear ringing, eye pain, eye redness, hearing loss, mouth pain, mouth swelling, nasal discharge, nose bleeding, nose congestion, nose pain, photophobia, tearing, throat pain, throat swelling, voice changes, others Respiratory: denies: cough, hemoptysis, orthopnea, SOB at rest, shortness of breath, SOB with excertion, stridor, wheezing, others Cardiovascular: denies: chest pain, dizzy spells, diaphoresis, Dyspnea on exertion, edema, irregular heart beat, left arm pain, lightheadedness, palpitations, PND, syncope, others Gastrointestinal: reports: hematemesis, nausea; denies: abdomen distended, abdominal pain, blood streaked bowels, constipated, diarrhea, dysphagia, difficulty swallowing, melena, poor appetite, poor fluid intake, rectal bleeding, rectal pain, vomiting, others Genitourinary: denies: abnormal vagina bleeding, burning, dyspareunia, dysuria, flank pain, frequency, hematuria, incontinence, pain, , vagina discharge, urgency, others Neurological: reports: weakness (6); denies: dizziness, fainting, headache, left sided numbness, left sided weakness, numbness, paresthesia, pre-existing deficit, right sided numbness, right sided weakness, seizure, speech problems, tingling, tremors, others Musculoskeletal: denies: back pain, gout, joint pain, joint swelling, muscle pain, muscle stiffness, neck pain, others Integumetry: denies: bruises, change in color, change in hair/nails, dryness, laceration, lesions, lumps, rash, wounds, others Allergic/Immunocompromised: denies: Difficulty Healing, Frequent Infections, Hives, Itching, others Hematologic/Lymphatic: denies: anemia, blood clots, easy bleeding, easy bruising, swollen glands, others Endocrine: denies: excessive hunger, excessive sweating, excessive thirst, excessive urination, flushing, intolerance to cold, intolerance to heat, unexplained weight gain, unexplained weight loss, others Psychiatric: denies: anxiety, bipolar disorder, depression, hopeless, panic disorder, schizophrenia, sleepless, suicidal, others All Other Systems: Reviewed and Negative Physical Exam General Appearance: Normal HEENT: Normal ENT Inspection, Pharynx Normal, TMs Normal Neck: Full Range of Motion, Non-Tender, Normal, Normal Inspection Respiratory: Chest Non-Tender, Lungs Clear, No Accessory Muscle Use, No Respiratory Distress, Normal Breath Sounds Cardiovascular: No Edema, No JVD, No Murmur, No Gallop, Normal Peripheral Pulses, Regular Rate/Rhythm Breast Exam: Deferred Gastrointestinal: No Organomegaly, Non Tender, No Pulsatile Mass, Normal Bowel Sounds, Soft Genitalia: Deferred Pelvic: Deferred Rectal: Deferred Extremities: No calf tenderness, Normal capillary refill, Normal inspection, Normal range of motion, Non-tender, No pedal edema Musculoskeletal : Apperance: Normal Neurologic: Alert, dietary tech II-XII nml as Tested, No Motor Deficits, Normal Affect, Normal Mood, No Sensory Deficits Cerebellar Function: Normal Reflexes: Normal Skin: Dry, Normal Color, Warm Lymphatic: No Adenopathy Was a procedure done? Was a procedure done?: No X-Ray, Labs, Meds, VS Vital Signs Date Time Temp Pulse Resp B/P (MAP) Pulse Ox O2 Delivery O2 Flow Rate FiO2 07/07/25 10:25 136 204/115 07/07/25 09:00 145 21 100 Room Air* 0 21 07/07/25 09:00 98.2 145 21 206/137 (160) 100 98.2 07/07/25 08:50 129 07/07/25 08:46 98.1 105 16 189/121 96 98.1 Lab Test 07/07/25 10:30 07/07/25 09:10 Range/Units Troponin I High Sensitivity Pending 21 </=34 ng/L White Blood Count 5.9 4.4-10.8 10^3/uL Red Blood Count 2.38 L 4.0-5.20 10^6/uL Hemoglobin 7.9 L 12.2-16.2 g/dL Hematocrit 22.6 L 36.0-46.0 % Mean Corpuscular Volume 94.7 80.0-100.0 fL Mean Corpuscular Hemoglobin 33.1 H 28.0-32.0 pg Mean Corpuscular Hemoglobin Concent 35.0 32.0-36.0 g/dL Red Cell Distribution Width 19.6 H 11.8-14.3 % Platelet Count 75 L 140-450 10^3/uL Mean Platelet Volume 8.2 6.9-10.8 fL Neutrophils (%) (Auto) 84.1 H 37.0-80.0 % Lymphocytes (%) (Auto) 14.2 10.0-50.0 % Monocytes (%) (Auto) 1.5 0.0-12.0 % Eosinophils (%) (Auto) 0.1 0.0-7.0 % Basophils (%) (Auto) 0.1 0.0-2.0 % Neutrophils # (Auto) 4.9 1.6-8.6 10 ^3/uL Lymphocytes # (Auto) 0.8 0.4-5.4 10 ^3/uL Monocytes # (Auto) 0.1 0-1.3 10 ^3/uL Eosinophils # (Auto) 0 0-0.8 10 ^3/uL Basophils # (Auto) 0 0-0.2 10 ^3/uL Nucleated Red Blood Cells 0.0 % Prothrombin Time 14.0 H 9.3-11.8 sec Prothrombin Time INR 1.36 H 0.9-1.15 Activated Partial Thromboplast Time 38.6 H 24.5-34.5 SEC Sodium Level 137 136-145 mmol/L Potassium Level 2.8 L 3.5-5.1 mmol/L Chloride Level 104 98-107 mmol/L Carbon Dioxide Level 17 L 20-31 mmol/L Anion Gap 16 H 5-15 Blood Urea Nitrogen 19 9-23 mg/dL Creatinine 1.45 H 0.550-1.02 mg/dL Glomerular Filtration Rate Calc 36 >90 mL/min BUN/Creatinine Ratio 13.1 10.0-20.0 Serum Glucose 178 H 74-106 mg/dL Calcium Level 9.4 8.7-10.4 mg/dL Current Medications Medications (Trade) Dose Ordered Sig/Keven Route Start Time Stop Time Status Last Admin Sodium Chloride 1,000 ml @ 1,000 mls/hr Q1H ONCE IV 07/07/25 09:00 07/07/25 09:59 DC 07/07/25 09:13 Ondansetron HCl (Zofran) 4 mg ONCE ONCE IV 07/07/25 09:00 07/07/25 09:01 DC 07/07/25 09:27 Metoprolol Tartrate (Lopressor) 5 mg ONCE ONCE IV 07/07/25 10:30 07/07/25 10:31 DC 07/07/25 10:25 [place] [id number] Ph: [phone] DIAGNOSTIC IMAGING Diagnostic Imaging Report : [id number] Signed PATIENT: JEFERSON RICARDO AACCT: [id number] UNIT: [id number] : 1945 LOC: ER ROOM / BED: / AGE / SEX: 79 / F ADM STATUS: REG ER SERVICE ORDERING PHYSICIAN: LEYLA PARADA MD PROCEDURE(s): CXRP - CHEST PORTABLE REASON: cp ORDER NUMBER(s): [id number], ACCESSION NUMBER(s): [id number] EXAM: XY CHEST PORTABLE Indication: cp Technique: Single frontal view of the chest was obtained Comparison: XY CHEST PORTABLE on DOS: 02/14/25, XY CHEST PORTABLE on DOS: 12/09/24, CT CT ANGIO CHEST CONTRAST on DOS: 12/08/24, XY CHEST PORTABLE on DOS: 12/08/24, XY CHEST PORTABLE on DOS: 10/13/24 FINDINGS: Lines and Tubes: Right PICC tip projects over the superior vena cava. Lungs: No focal consolidation. Pleura: No effusion. No pneumothorax. Cardiomediastinal contours: Unremarkable Bones: No acute osseous abnormality. IMPRESSION: No acute cardiopulmonary disease. ATED BY: DARRELL BURGESS MD DICTATED DATE/TIME: 07/07/25 100 SIGNED BY: DARRELL BURGESS MD SIGNED DATE/TIME: 07/07/25 100 CC: Time of 1ST Reevaluation: 09:20 Reevaluation 1ST: Unchanged Patient Education/Counseling: Diagnosis, Treatment, Prognosis Family Education/Counseling: No Family Present SEPSIS Sepsis Screen Physician Orders Type And Screen (07/07/25 08:49) Urinalysis (07/07/25 08:49) Chest Portable (07/07/25 08:49) Troponin-I Hs (07/07/25 09:49) Troponin-I Hs (07/07/25 11:49) Ok To Use Picc (07/07/25 09:13) Electrocardigram (07/07/25 09:42) Vital Signs Date Time Temp Pulse Resp B/P (MAP) Pulse Ox O2 Delivery O2 Flow Rate FiO2 07/07/25 10:25 136 204/115 07/07/25 09:00 145 21 100 Room Air* 0 21 07/07/25 09:00 98.2 145 21 206/137 (160) 100 98.2 07/07/25 08:50 129 07/07/25 08:46 98.1 105 16 189/121 96 98.1 Laboratory Tests Test 07/07/25 09:10 White Blood Count 5.9 10^3/uL (4.4-10.8) Medications Medications Dose Ordered Sig/Keven Route Start Time Stop Time Status Last Admin Dose Admin Metoprolol Tartrate 5 mg ONCE ONCE IV 07/07/25 10:30 07/07/25 10:31 DC 07/07/25 10:25 Ondansetron HCl 4 mg ONCE ONCE IV 07/07/25 09:00 07/07/25 09:01 DC 07/07/25 09:27 Sodium Chloride 1,000 ml @ 1,000 mls/hr Q1H ONCE IV 07/07/25 09:00 07/07/25 09:59 DC 07/07/25 09:13 Critical Care Note Critical Care Time?: No Stability Stability form required: No I personally scribed for LEYLA PARADA MD ([facility] on 07/07/25 at 08:57. Electronically submitted by Nasima Batista ([email or web address]). I personally scribed for LEYLA PARADA MD ([email or web address]) on 07/07/25 at 08:58. Electronically submitted by Nasima Batista ([email or web address]). I personally scribed for LEYLA PARADA MD ([email or web address]) on 07/07/25 at 10:41. Electronically submitted by Nasima Batista ([email or web address]). LEYLA PARADA MD Jul 07, 2025 08:57
[2025-07-07] MEDS: SODIUM CHLORIDE 0.9% 1,000 ML IV ONE ×2 (09:13→13:51)
[2025-07-07] MEDS: MORPHINE SULFATE 4 MG/ML SYR/VIAL IV ONE (09:27)
[2025-07-07] MEDS: ONDANSETRON HCL 4 MG/2 ML VIAL IV ONE (09:27)
[2025-07-07 09:48] LABS: Hematocrit 22.6 % (36.0-46.0); Hemoglobin 7.9 g/dL (12.2-16.2); Mean Corpuscular Hemoglobin 33.1 pg (28.0-32.0); Mean Corpuscular Volume 94.7 fL (80.0-100.0); Nucleated Red Blood Cells % 0.0 %
[2025-07-07 09:52] LABS: Chloride 104 mmol/L (98-107); Sodium 137 mmol/L (136-145)
[2025-07-07 09:53] LABS: Anion Gap 16 (5-15)
[2025-07-07 09:54] LABS: Calcium 9.4 mg/dL (8.7-10.4)
[2025-07-07 09:57] LABS: INR 1.36 (0.9-1.15); Partial Thromboplastin Time 38.6 SEC (24.5-34.5); Prothrombin Time 14.0 sec (9.3-11.8)
[2025-07-07 09:58] LABS: Carbon Dioxide 17 mmol/L (20-31); Potassium 2.8 mmol/L (3.5-5.1)
[2025-07-07 09:59] LABS: BUN/Creatinine Ratio 13.1 (10.0-20.0); Blood Urea Nitrogen 19 mg/dL (9-23); Glucose 178 mg/dL (74-106)
--- NOTE | 2025-07-07 10:11 | DVH ---
EXAM: XY CHEST PORTABLE Indication: cp Technique: Single frontal view of the chest was obtained Comparison: XY CHEST PORTABLE on DOS: 02/14/25, XY CHEST PORTABLE on DOS: 12/09/24, CT CT ANGIO CHEST CO NTRAST on DOS: 12/08/24, XY CHEST PORTABLE on DOS: 12/08/24, XY CHEST PORTABLE on DOS: 10/13/24 FINDINGS: Lines and Tubes: Right PICC tip projects over the superior vena cava. Lungs: No focal consolidation. Pleura: No effusion. No pneumothorax. Cardiomediastinal contours: Unremarkable Bones: No acute osseous abnormality. IMPRESSION: No acute cardiopulmonary disease.
[2025-07-07] MEDS: METOPROLOL TARTRATE 1MG/1ML-5ML VIAL IV ONE (10:25)
[2025-07-07 11:08] LABS: Urine Protein, UAD 1+ (Negative)
[2025-07-07] MEDS ORDERED: hydrALAZINE HCL 20 MG/ML VL IV ONE (12:15)
[2025-07-07] MEDS ORDERED: MORPHINE SULFATE INJ 2 MG/ml SYRG IV PRN (13:30)
[2025-07-07] MEDS ORDERED: HYDROcodone-ACET 5/325MG TAB PO PRN (13:30)
[2025-07-07] MEDS ORDERED: AMIODARONE 360mg/200mL PREMIX 200 ML IV ONE (13:30)
[2025-07-07] MEDS ORDERED: AMIODARONE BOLUS KIT 100 ML IV ONE (13:30)
[2025-07-07] MEDS ORDERED: NITROGLYCERIN 0.4 MG SL TAB SL PRN (13:30)
[2025-07-07] MEDS: POTASSIUM CHL 20MEQ/100ML 100 ML IV ONE (13:38)
[2025-07-07] MEDS ORDERED: CLON0.1T PO (13:41)
[2025-07-07] MEDS ORDERED: MEGE20TA3 PO (13:41)
--- NOTE | 2025-07-07 13:42 | DVHHP2 ---
History of Present Illness Reason for Visit: Nausea and vomiting History of Present Illness Ruthie Martinez is an 79-year-old female with past medical history of stage 4 pancreatic cancer, coronary artery disease, CVA with right sided weakness, hypertension, anemia, and arthritis, who came to the hospital due to nausea and vomiting. Patient is currently receiving chemo therapy for her cancer with her last infusion on 07/03/2025, who state she has been experiencing nausea and vomiting the last couple of days. Family called EMS when patient began vomiting blood this morning. 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 Dyspnea, Edema, Lt Headedness, Other Gastrointestinal: Nausea, Vomiting; No: Abdominal Pain, Diarrhea, Constipation, Melena, Hematochezia, Other Genitourinary: No Dysuria, No Frequency, No Incontinence, No Hematuria, No Retention, No Other Musculoskeletal: No: other, neck pain, shoulder pain, arm pain, back pain, hand pain, leg pain, foot pain Skin: No: Rash, Lesions, Jaundice, Bruising, Other Neurological: No: Weakness, Numbness, Incoordination, Change in speech, Confusion, Seizures, Other Allergies: Coded Allergies: Ciprofloxacin (Verified Allergy, Unknown, 02/21/18) Iodine (Verified Allergy, Unknown, 06/23/17) Penicillins (Verified Allergy, Unknown, 07/07/25) Simvastatin (Verified Allergy, Unknown, 10/10/24) BONE PAIN Sulfa Antibiotics (Verified Allergy, Unknown, 06/23/17) Exam Vital Signs Vital Signs Date Time Temp Pulse Resp B/P (MAP) Pulse Ox O2 Delivery O2 Flow Rate FiO2 07/07/25 12:50 186/85 07/07/25 12:42 128 07/07/25 12:35 15 100 07/07/25 09:00 Room Air* 0 21 07/07/25 09:00 98.2 98.2 General Appearance: Alert, Oriented X3, Cooperative, severe distress HEENT: Atraumatic, PERRLA, Other (Mucous membr dry) Respiratory: Clear to auscultation, Normal air movement Cardiovascular: Normal S1, Normal S2, Other (Atrial fibrillatin with RVR, Hypertensive urgency) Abdominal: Normal bowel sounds, Soft, Other ([place]) Extremities: No clubbing, No cyanosis, No edema Skin: No rashes, No breakdown, No significant lesion Neuro: Normal speech Psych/Mental Status: Mental status NL Labs/Xrays Labs Test 07/07/25 12:16 07/07/25 10:04 07/07/25 09:10 Range/Units Troponin I High Sensitivity 30 </=34 ng/L Urine Color Yellow Yellow Urine Clarity Clear Clear Urine pH 7.0 5.0-9.0 Urine Specific [place] 1.008 1.001-1.035 Urine Protein 1+ H Negative Urine Ketones Trace Negative Urine Blood Trace H Negative /uL Urine Nitrite Negative Negative Urine Bilirubin Negative Negative Urine Urobilinogen Normal Negative mg/dL Urine Leukocyte Esterase Trace Negative /uL Urine Glucose 3+ H Normal mg/dL White Blood Count 5.9 4.4-10.8 10^3/uL Red Blood Count 2.38 L 4.0-5.20 10^6/uL Hemoglobin 7.9 L 12.2-16.2 g/dL Hematocrit 22.6 L 36.0-46.0 % Mean Corpuscular Volume 94.7 80.0-100.0 fL Mean Corpuscular Hemoglobin 33.1 H 28.0-32.0 pg Mean Corpuscular Hemoglobin Concent 35.0 32.0-36.0 g/dL Red Cell Distribution Width 19.6 H 11.8-14.3 % Platelet Count 75 L 140-450 10^3/uL Mean Platelet Volume 8.2 6.9-10.8 fL Neutrophils (%) (Auto) 84.1 H 37.0-80.0 % Lymphocytes (%) (Auto) 14.2 10.0-50.0 % Monocytes (%) (Auto) 1.5 0.0-12.0 % Eosinophils (%) (Auto) 0.1 0.0-7.0 % Basophils (%) (Auto) 0.1 0.0-2.0 % Neutrophils # (Auto) 4.9 1.6-8.6 10 ^3/uL Lymphocytes # (Auto) 0.8 0.4-5.4 10 ^3/uL Monocytes # (Auto) 0.1 0-1.3 10 ^3/uL Eosinophils # (Auto) 0 0-0.8 10 ^3/uL Basophils # (Auto) 0 0-0.2 10 ^3/uL Nucleated Red Blood Cells 0.0 % Prothrombin Time 14.0 H 9.3-11.8 sec Prothrombin Time INR 1.36 H 0.9-1.15 Activated Partial Thromboplast Time 38.6 H 24.5-34.5 SEC Sodium Level 137 136-145 mmol/L Potassium Level 2.8 L 3.5-5.1 mmol/L Chloride Level 104 98-107 mmol/L Carbon Dioxide Level 17 L 20-31 mmol/L Anion Gap 16 H 5-15 Blood Urea Nitrogen 19 9-23 mg/dL Creatinine 1.45 H 0.550-1.02 mg/dL Glomerular Filtration Rate Calc 36 >90 mL/min BUN/Creatinine Ratio 13.1 10.0-20.0 Serum Glucose 178 H 74-106 mg/dL Calcium Level 9.4 8.7-10.4 mg/dL EXAM: XY CHEST PORTABLE FINDINGS: Lines and Tubes: Right PICC tip projects over the superior vena cava. Lungs: No focal consolidation. Pleura: No effusion. No pneumothorax. Cardiomediastinal contours: Unremarkable Bones: No acute osseous abnormality. IMPRESSION: No acute cardiopulmonary disease. SEPSIS Sepsis Screen Date sepsis recognized/suspect: Jul 07, 2025 Time Sepsis recognized/suspect: 899 Recent Procedure: No On Antibiotic Therapy: No Respiratory Rate >20: No Heart Rate >90: Yes Temp<36 C (96.8 F) or >38.3 C: No SBP <90 or MAP <65 mmHG: No New Acute Mental Status Change: No Is the patient on CPAP, BIPAP,: No Physician Orders Chest Portable (07/07/25 08:49) Ok To Use Picc (07/07/25 09:13) Electrocardigram (07/07/25 09:42) *Consult Dr. Lee Vieira (07/07/25 13:18) Admit (07/07/25 13:19) Code Status (07/07/25 13:19) Hydrocodone-Acet 5/325mg Tab (Protivin 5/32 (07/07/25 13:30) Ondansetron Hcl (Zofran) (07/07/25 13:30) Docusate Sodium Capsule (Colace Capsule) (07/07/25 13:30) Complete Blood Count (07/08/25 04:00) Comprehensive Metabolic Panel (07/08/25 04:00) Condition: Critical (07/07/25 13:19) Acetaminophen Tablet (Tylenol Tablet) (07/07/25 13:30) Morphine Sulfate Injection (07/07/25 13:30) Nitroglycerin Sublingual (Ntrostat Subli (07/07/25 13:30) Morphine Sulfate Injection (07/07/25 13:30) Stat Ekg For Chest Pain (07/07/25 13:19) Notify Md Of Changes From Base (07/07/25 13:19) Project Engineer For 24 Hours (07/07/25 13:19) Emergency Dysrhythmia Protocol (07/07/25 13:19) Rhythm Strips Once Every Shift (07/07/25 13:19) Oxygen By Nasal Cannula (07/07/25 13:19) Regular Diet (07/07/25 Lunch) * Dietary Consult (07/07/25 13:19) Nutritional Supplements (Ensure Enlive) (07/07/25 18:00) Potassium Chl Jamie Kcl (07/07/25 13:30) Amiodarone 150 Mg Bolus (07/07/25 13:30) Amiodarone Drip 1 Mg/Min X 6hr (07/07/25 13:30) Amiodarone Drip 0.5 Mg/Min (07/07/25 19:30) Packedcell-Noactive Bleeding (07/07/25 13:19) Vital Signs Date Time Temp Pulse Resp B/P (MAP) Pulse Ox O2 Delivery O2 Flow Rate FiO2 07/07/25 12:50 186/85 07/07/25 12:42 128 07/07/25 12:35 129 15 183/108 (133) 100 07/07/25 11:31 93 193/115 07/07/25 11:00 88 16 188/105 (132) 100 07/07/25 10:25 136 204/115 07/07/25 09:00 145 21 100 Room Air* 0 21 07/07/25 09:00 98.2 145 21 206/137 (160) 100 98.2 07/07/25 08:50 129 07/07/25 08:46 98.1 105 16 189/121 96 98.1 Laboratory Tests Test 07/07/25 09:10 White Blood Count 5.9 10^3/uL (4.4-10.8) Medications Medications Dose Ordered Sig/Keven Route Start Time Stop Time Status Last Admin Dose Admin Clonidine HCl 0.2 mg ONCE ONCE PO 07/07/25 12:45 07/07/25 12:46 DC 07/07/25 12:50 0.2 MG Metoprolol Tartrate 5 mg ONCE ONCE IV 07/07/25 10:30 07/07/25 10:31 DC 07/07/25 10:25 5 MG Ondansetron HCl 4 mg ONCE ONCE IV 07/07/25 09:00 07/07/25 09:01 DC 07/07/25 09:27 4 MG Sodium Chloride 1,000 ml @ 1,000 mls/hr Q1H ONCE IV 07/07/25 09:00 07/07/25 09:59 DC 07/07/25 09:13 1,000 MLS/HR Assessment/Plan Assessment/Plan Assessment: Atrial fibrillation with RVR, Hypertensive urgency, Anemia, Hypokalemia, Malnutrition, Stage 4 pancreatic cancer, Plan: Admit to Tele, Consult Dr. Howard, Dietary consult, IV amiodarone, IV hydration, Transfuse 1 unit PRBC, PO supplements TID, Manage/Monitor electrolytes closely, Plan discussed with: Patient, Daughter My Orders Orders - REJI CARDENAS Procedure Category Date Status Time *Consult Dr. Howard CONS 07/07/25 Transmitted [place] 13:18 Admit ADMIT 07/07/25 Transmitted 13:19 Code Status CODE 07/07/25 Transmitted 13:19 Hydrocodone-Acet PHA 07/07/25 Transmitted 5/325mg Tab (Protivin 13:30 Ondansetron Hcl PHA 07/07/25 Transmitted (Zofran) 13:30 Docusate Sodium PHA 07/07/25 Transmitted Capsule (Colace 13:30 Complete Blood Count LAB 07/08/25 Verified 04:00 Comprehensive LAB 07/08/25 Verified Metabolic Panel 04:00 Condition: Critical DANIELITO 07/07/25 Transmitted 13:19 Acetaminophen Tablet [facility] 07/07/25 Transmitted (Tylenol Tablet) 13:30 Morphine Sulfate [facility] 07/07/25 Transmitted Injection 13:30 Nitroglycerin [facility] 07/07/25 Transmitted Sublingual (Ntrostat 13:30 Morphine Sulfate [facility] 07/07/25 Transmitted Injection 13:30 Stat Ekg For Chest [facility] 07/07/25 Transmitted Pain 13:19 Notify Md Of Changes [facility] 07/07/25 Transmitted From Base 13:[address] Project Engineer [address] [facility] 07/07/25 Transmitted 24 Hours 13:[address] [facility] 07/07/25 Transmitted Protocol 13:19 Rhythm [address]ps [address] [facility] 07/07/25 Transmitted Every Shift 13:19 Oxygen By Nasal RT 07/07/25 Transmitted Cannula 13:19 Regular Diet DIET 07/07/25 Transmitted Lunch * Dietary Consult CONS 07/07/25 Transmitted 13:19 Nutritional [facility] 07/07/25 Transmitted Supplements (Ensure 18:00 Potassium Chl Jamie PHA 07/07/25 Transmitted KCL 13:30 Amiodarone 150 Mg PHA 07/07/25 Transmitted Bolus 13:30 Amiodarone Drip 1 [facility] 07/07/25 Transmitted Mg/Min X 6hr 13:30 Amiodarone Drip 0.5 [facility] 07/07/25 Transmitted Mg/Min 19:30 Packedcell-Noactive BBK 07/07/25 Transmitted Bleeding 13:19 Date of Service: Jul 07, 2025 Billing Provider: REJI CARDENAS Common Visit Codes: [id number] INP/OBS CARE (HIGH) REJI CARDENAS Jul 07, 2025 13:42
--- NOTE | 2025-07-07 13:51 | DVHPN2 ---
Progress Note - Dictate Date Seen: Jul 07, 2025 Medical Necessity Reason Pt with a Central, PICC or Fol: No Subjective PT WITH NAUSEA/ VOMITING SEVERE VOLUME DEPLETION HYPOKALEMIA HEMOPTYSIS ANEMIA CVA PANCREATIC CA S/P STENT ANEMIA GALLSTONES CAROTID STENOSIS HX OF CVA LUNG MASS S/P BOPSY RA CAROTID STENOSIS MRI 1. Acute / recent small infarct in the left yost radiata. 2. Evolving subacute to chronic infarct in the right parietal lobe which was present as an acute infarct from MRI brain dated 10/10/2024. 3. Generalized cerebral volume loss and moderate chronic microvascular ischemic change. CAROTID U/S 1. stenosis noted in the right carotid system.50-69% stenosis in the right internal carotid. 2. 50-69% stenosis of the left 3. internal carotid. 4. Echogenic plaque noted vital signs Vital Sign Date Time Temp Pulse Resp B/P (MAP) Pulse Ox O2 Delivery O2 Flow Rate FiO2 07/07/25 13:45 147/81 07/07/25 13:40 97 07/07/25 12:35 15 100 07/07/25 09:00 Room Air* 0 21 07/07/25 09:00 98.2 98.2 medications Current Medications Medications Dose Ordered Sig/Keven Route Start Time Stop Time Status Last Admin Dose Admin Acetaminophen/ Hydrocodone Bitart 1 tab Q4HP PRN PO 07/07/25 13:30 Ondansetron HCl 4 mg Q4HP PRN IV 07/07/25 13:30 Docusate Sodium 100 mg BIDPRN PRN PO 07/07/25 13:30 Acetaminophen 650 mg Q6HP PRN PO 07/07/25 13:30 Morphine Sulfate 2 mg Q4HPRN PRN IV 07/07/25 13:30 Nitroglycerin 0.4 mg Q5MINP PRN SL 07/07/25 13:30 Morphine Sulfate 2 mg Q30M PRN IV 07/07/25 13:30 Enteral Nutritional Formula 240 ml TIDWM PO 07/07/25 18:00 Clopidogrel Bisulfate 75 mg DAILY PO 07/08/25 10:00 UNV Metoprolol Succinate 50 mg DAILY PO 07/08/25 10:00 UNV Patient Own Medication 1 tab DAILY PO 07/08/25 10:00 UNV Patient Own Medication 1 tab DAILY PO 07/08/25 10:00 UNV laboratory and microbiology Laboratory Tests 07/07/25 09:10 Test 07/07/25 09:10 Range/Units Serum Glucose 178 H 74-106 mg/dL Problem List AUSEA/ VOMITING SEVERE VOLUME DEPLETION HYPOKALEMIA HEMOPTYSIS ANEMIA CVA PANCREATIC CA S/P STENT ANEMIA GALLSTONES CAROTID STENOSIS HX OF CVA LUNG MASS S/P BOPSY RA CAROTID STENOSIS MRI 1. Acute / recent small infarct in the left yost radiata. 2. Evolving subacute to chronic infarct in the right parietal lobe which was present as an acute infarct from MRI brain dated 10/10/2024. 3. Generalized cerebral volume loss and moderate chronic microvascular ischemic change. CAROTID U/S 1. stenosis noted in the right carotid system.50-69% stenosis in the right internal carotid. 2. 50-69% stenosis of the left 3. internal carotid. 4. Echogenic plaque noted Assessment/Plan IV FLUID TRANSFUSE 2 UNITS PRBC ANTIEMETIC CORRECT HYPOKALEMIA Plan discussed with: Patient, Spouse Critical Care Time(min): 35 JOSE ANGEL HALE MD Jul 07, 2025 13:51
[2025-07-07] MEDS: Ensure Enlive Vanilla 8oz Bottle PO SCH (18:00)
--- NOTE | 2025-07-07 18:55 | ECG ---
[facility] Test Date: 2025-07-07 Test Time: 08:50:22 Pat Name: JEFERSON RICARDO Department: Room: 0287T A Gender: F Can Slider: GISSELL : 1945 Requested By: LEYLA PARADA Order Number: [id number] Reading MD: Mason Hutchison Measurements Intervals [place] Rate: 129 P: 65 MA: 188 QRS: 18 QRSD: 88 T: 69 QT: 340 QTc: 499 Interpretive Statements Sinus tachycardia with irregular rate Borderline prolonged QT interval Electronically Signed On 07-07-2025 19:19:29 PDT by Mason Hutchison Please click the below link to view image of tracing.
[2025-07-07] MEDS ORDERED: AMIODARONE 360mg/200mL PREMIX 200 ML IV SCH (19:45)
[2025-07-08] VITALS (12 sets, daily range): BP systolic 114–159; BP diastolic 54–87; PULSE 66–89; RESP 15–98; TEMP 97.8–98.3; O2SAT 17–99
[2025-07-08] MEDS: MORPHINE SULFATE INJ 2 MG/ml SYRG IV PRN (05:08)
[2025-07-08] MEDS: ONDANSETRON HCL 4 MG/2 ML VIAL IV PRN (05:11)
[2025-07-08 07:47] LABS: Hematocrit 20.8 % (36.0-46.0); Hemoglobin 7.3 g/dL (12.2-16.2)
[2025-07-08 07:49] LABS: Mean Corpuscular Hemoglobin 32.5 pg (28.0-32.0); Mean Corpuscular Volume 92.8 fL (80.0-100.0); Nucleated Red Blood Cells % 0.0 %
[2025-07-08 08:57] LABS: Alanine Aminotransferase 15 U/L (7-40); Anion Gap 13 (5-15); BUN/Creatinine Ratio 16.3 (10.0-20.0); Glucose 81 mg/dL (74-106)
[2025-07-08 08:58] LABS: Alkaline Phosphatase 117 U/L (46-116); Blood Urea Nitrogen 24 mg/dL (9-23); Calcium 8.3 mg/dL (8.7-10.4); Carbon Dioxide 18 mmol/L (20-31); Chloride 110 mmol/L (98-107); Potassium 2.9 mmol/L (3.5-5.1); Sodium 141 mmol/L (136-145)
[2025-07-08 08:59] LABS: Albumin 2.8 g/dL (3.2-4.8); Bilirubin, Total 1.3 mg/dL (0.2-1.0); Total Protein 5.6 g/dL (5.7-8.2)
[2025-07-08] MEDS: FOLIC ACID 1 MG TAB PO SCH (09:23)
[2025-07-08] MEDS: POTASSIUM CHL 20 Meq TABLET PO SCH (09:23)
[2025-07-08] MEDS: METOPROLOL SUCCINATE XL 50 MG TAB PO SCH (09:24)
[2025-07-08] MEDS: CLOPIDOGREL BISULFATE 75 MG TAB PO SCH (10:00)
--- NOTE | 2025-07-08 10:51 | DVHHP2 ---
History of Present Illness Reason for Visit: Nausea and vomiting History of Present Illness Ruthie Martinez is an 79-year-old female with past medical history of stage 4 pancreatic cancer who is undergoing chemo therapy at [facility], last infusion treatment was 07/03/2025, anemia, arthritis, CVA, hypertension, and coronary artery disease, who came to the hospital for intractable nausea and vomiting. Family states the patient has been nauseated since receiving her last treatment. The last 2 days prior to coming to the hospital she was in taking less than 500 calories/day. While in the ER patient was found to be hypertensive and in atrial fibrillation with RVR. Patient is unsure if she has ever been in this rhythm before. Family states the patient has recently had multiple strokes. She has minimal right sided weakness due to the strokes. They state she has a new right sided facial droop. 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 RUNNER: CVA Heme/Onc: Anemia NOS, Cancer (stage 4 pancreatic) Past Surgical History: Other (right carotid stent) Smoke: No ALCOHOL: none Drugs: None Lives: with Family Domestic Violence: Neg Review of Systems Constitutional: No: Fever, Chills, Sweats, Weakness, Malaise, Other Eyes: No: Pain, Vision change, Conjunctivae inflammation, Eyelid inflammation, Other, Redness ENT: No: Ear pain, Ear discharge, Nose pain, Nose discharge, Nose congestion, Mouth pain, Mouth swelling, Throat pain, Throat swelling, Other Respiratory: No: Cough, Dry, Shortness of breath, SOB with excertion, Wheezing, Hemoptysis, Pleuritic Pain, Sputum, Wheezing, Other Cardiovascular: No: Chest Pain, Palpitations, Orthopnea, Paroxysmal Noc. Dyspnea, Edema, Lt Headedness, Other Gastrointestinal: Nausea, Vomiting, Abdominal Pain; No: Diarrhea, Constipation, Melena, Hematochezia, Other Genitourinary: No Dysuria, No Frequency, No Incontinence, No Hematuria, No Retention, No Other Musculoskeletal: No: other, neck pain, shoulder pain, arm pain, back pain, hand pain, leg pain, foot pain Skin: No: Rash, Lesions, Jaundice, Bruising, Other Neurological: No: Weakness, Numbness, Incoordination, Change in speech, Confusion, Seizures, Other Allergies: Coded Allergies: Ciprofloxacin (Verified Allergy, Unknown, 02/21/18) Iodine (Verified Allergy, Unknown, 06/23/17) Penicillins (Verified Allergy, Unknown, 07/07/25) Simvastatin (Verified Allergy, Unknown, 10/10/24) BONE PAIN Sulfa Antibiotics (Verified Allergy, Unknown, 06/23/17) Medications Current Medications Medications Dose Ordered Sig/Keven Route Start Time Stop Time Status Last Admin Dose Admin Acetaminophen/ Hydrocodone Bitart 1 tab Q4HP PRN PO 07/07/25 13:30 Ondansetron HCl 4 mg Q4HP PRN IV 07/07/25 13:30 07/08/25 05:11 4 MG Docusate Sodium 100 mg BIDPRN PRN PO 07/07/25 13:30 Acetaminophen 650 mg Q6HP PRN PO 07/07/25 13:30 Morphine Sulfate 2 mg Q4HPRN PRN IV 07/07/25 13:30 07/08/25 05:08 2 MG Nitroglycerin 0.4 mg Q5MINP PRN SL 07/07/25 13:30 Morphine Sulfate 2 mg Q30M PRN IV 07/07/25 13:30 Enteral Nutritional Formula 240 ml TIDWM PO 07/07/25 18:00 07/08/25 08:00 240 ML Clopidogrel Bisulfate 75 mg DAILY PO 07/08/25 10:00 Metoprolol Succinate 50 mg DAILY PO 07/08/25 10:00 07/08/25 09:24 50 MG Folic Acid 1 mg DAILY PO 07/08/25 10:00 07/08/25 09:23 1 MG Potassium Chloride 20 meq DAILY PO 07/08/25 10:00 07/08/25 09:23 20 MEQ Exam Vital Signs Vital Signs Date Time Temp Pulse Resp B/P (MAP) Pulse Ox O2 Delivery O2 Flow Rate FiO2 07/08/25 09:24 74 158/77 07/08/25 09:00 98.0 16 99 98.0 07/07/25 20:00 Room Air* 0 21 General Appearance: Alert, Oriented X3, moderate distress HEENT: Atraumatic, PERRLA, Other (Mucous membr dry) Respiratory: Clear to auscultation Cardiovascular: No murmurs, Other (atrial fibrillation) Abdominal: Normal bowel sounds, Soft, Other (Tenderness) Extremities: No clubbing, No cyanosis, No edema, Normal pulses Skin: No rashes, No breakdown Neuro: Normal speech, Other (generalized weakness) Psych/Mental Status: Mental status NL Labs/Xrays Labs Test 07/08/25 06:57 07/07/25 12:16 07/07/25 10:04 07/07/25 09:10 Range/Units White Blood Count 3.9 #L 4.4-10.8 10^3/uL Red Blood Count 2.25 L 4.0-5.20 10^6/uL Hemoglobin 7.3 L 12.2-16.2 g/dL Hematocrit 20.8 L 36.0-46.0 % Mean Corpuscular Volume 92.8 80.0-100.0 fL Mean Corpuscular Hemoglobin 32.5 H 28.0-32.0 pg Mean Corpuscular Hemoglobin Concent 35.1 32.0-36.0 g/dL Red Cell Distribution Width 17.4 H 11.8-14.3 % Platelet Count 46 L 140-450 10^3/uL Mean Platelet Volume 7.7 6.9-10.8 fL Neutrophils (%) (Auto) 67.7 37.0-80.0 % Lymphocytes (%) (Auto) 27.1 10.0-50.0 % Monocytes (%) (Auto) 3.1 0.0-12.0 % Eosinophils (%) (Auto) 2.0 0.0-7.0 % Basophils (%) (Auto) 0.1 0.0-2.0 % Neutrophils # (Auto) 2.6 1.6-8.6 10 ^3/uL Lymphocytes # (Auto) 1.1 0.4-5.4 10 ^3/uL Monocytes # (Auto) 0.1 0-1.3 10 ^3/uL Eosinophils # (Auto) 0.1 0-0.8 10 ^3/uL Basophils # (Auto) 0 0-0.2 10 ^3/uL Nucleated Red Blood Cells 0.0 % Sodium Level 141 136-145 mmol/L Potassium Level 2.9 L 3.5-5.1 mmol/L Chloride Level 110 H 98-107 mmol/L Carbon Dioxide Level 18 L 20-31 mmol/L Anion Gap 13 5-15 Blood Urea Nitrogen 24 H 9-23 mg/dL Creatinine 1.47 H 0.550-1.02 mg/dL Glomerular Filtration Rate Calc 36 >90 mL/min BUN/Creatinine Ratio 16.3 10.0-20.0 Serum Glucose 81 74-106 mg/dL Calcium Level 8.3 L 8.7-10.4 mg/dL Total Bilirubin 1.3 H 0.2-1.0 mg/dL Aspartate Amino Transferase (AST) 34 13-40 U/L Alanine Aminotransferase (ALT) 15 7-40 U/L Alkaline Phosphatase 117 H 46-116 U/L Total Protein 5.6 L 5.7-8.2 g/dL Albumin 2.8 L 3.2-4.8 g/dL Troponin I High Sensitivity 30 </=34 ng/L Urine Color Yellow Yellow Urine Clarity Clear Clear Urine pH 7.0 5.0-9.0 Urine Specific [place] 1.008 1.001-1.035 Urine Protein 1+ H Negative Urine Ketones Trace Negative Urine Blood Trace H Negative /uL Urine Nitrite Negative Negative Urine Bilirubin Negative Negative Urine Urobilinogen Normal Negative mg/dL Urine Leukocyte Esterase Trace Negative /uL Urine Glucose 3+ H Normal mg/dL Prothrombin Time 14.0 H 9.3-11.8 sec Prothrombin Time INR 1.36 H 0.9-1.15 Activated Partial Thromboplast Time 38.6 H 24.5-34.5 SEC EXAM: XY CHEST PORTABLE FINDINGS: Lines and Tubes: Right PICC tip projects over the superior vena cava. Lungs: No focal consolidation. Pleura: No effusion. No pneumothorax. Cardiomediastinal contours: Unremarkable Bones: No acute osseous abnormality. IMPRESSION: No acute cardiopulmonary disease. SEPSIS Sepsis Screen Date sepsis recognized/suspect: Jul 07, 2025 Time Sepsis recognized/suspect: 1529 Recent Procedure: No On Antibiotic Therapy: No Respiratory Rate >20: No Heart Rate >90: Yes Temp<36 C (96.8 F) or >38.3 C: No SBP <90 or MAP <65 mmHG: No New Acute Mental Status Change: No Is the patient on CPAP, BIPAP,: No Vital Signs Date Time Temp Pulse Resp B/P (MAP) Pulse Ox O2 Delivery O2 Flow Rate FiO2 07/08/25 09:24 74 158/77 07/08/25 09:00 98.0 74 16 158/77 (104) 99 98.0 07/08/25 05:38 87 16 143/78 07/08/25 05:08 77 17 159/82 07/08/25 05:00 98.3 77 17 159/82 (107) 98 98.3 Laboratory Tests Test 07/08/25 06:57 White Blood Count 3.9 10^3/uL (4.4-10.8) #L Medications Medications Dose Ordered Sig/Keven Route Start Time Stop Time Status Last Admin Dose Admin Folic Acid 1 mg DAILY PO 07/08/25 10:00 07/08/25 09:23 1 MG Metoprolol Succinate 50 mg DAILY PO 07/08/25 10:00 07/08/25 09:24 50 MG Potassium Chloride 20 meq DAILY PO 07/08/25 10:00 07/08/25 09:23 20 MEQ Assessment/Plan Assessment/Plan Assessment: Atrial fibrillation with RVR, Hypertensive urgency, Anemia, Hypokalemia, Malnutrition, Possible stroke, Stage 4 pancreatic cancer, Plan: Admit to Tele, Consult Dr. Howard, Dietary consult, IV amiodarone, IV hydration, Transfuse 1 unit PRBC, Manage/Monitor electrolytes closely, Manage/Monitor H&H closely, PO supplements TID, Head CT, Plan discussed with: Patient, Daughter My Orders Orders - REJI CARDENAS HOUSE [employer]ER Procedure Category Date Status Time *Consult Dr. Howard CONS 07/07/25 Transmitted [place] 13:18 Admit ADMIT 07/07/25 Transmitted 13:19 Code Status CODE 07/07/25 Transmitted 13:19 Hydrocodone-Acet PHA 07/07/25 In Process 5/325mg Tab ([place] 13:30 Ondansetron Hcl PHA 07/07/25 In Process (Zofran) 13:30 Docusate Sodium PHA 07/07/25 In Process Capsule (Colace 13:30 Condition: Critical DANIELITO 07/07/25 In Process 13:19 Acetaminophen Tablet PHA 07/07/25 In Process (Tylenol Tablet) 13:30 Morphine Sulfate PHA 07/07/25 In Process Injection 13:30 Nitroglycerin PHA 07/07/25 In Process Sublingual (Ntrostat 13:30 Morphine Sulfate PHA 07/07/25 In Process Injection 13:30 Stat Ekg For Chest DANIELITO 07/07/25 In Process Pain 13:19 Notify Md Of Changes DANIELITO 07/07/25 In Process From Base 13:19 Director Airport Operations For DANIELITO 07/07/25 In Process 24 Hours 13:19 Emergency Dysrhythmia DANIELITO 07/07/25 In Process Protocol 13:19 Rhythm Strips Once DANIELITO 07/07/25 In Process Every Shift 13:19 Oxygen By Nasal RT 07/07/25 Transmitted Cannula 13:19 Regular Diet DIET 07/07/25 Transmitted Lunch * Dietary Consult CONS 07/07/25 Transmitted 13:19 Nutritional PHA 07/07/25 In Process Supplements (Ensure 18:00 Clopidogrel Bisulfate PHA 07/08/25 In Process (Plavix) 10:00 Metoprolol Xl PHA 07/08/25 In Process Succinate (Toprol Xl) 10:00 Folic Acid Tablet PHA 07/08/25 In Process 10:00 Potassium Er Tablet PHA 07/08/25 In Process (Klor-Con Tablet) 10:00 * Dietary Consult CONS 07/07/25 Transmitted 19:01 Education - Smoking DANIELITO 07/07/25 In Process Cessation 19:01 Date of Service: Jul 08, 2025 Billing Provider: REJI CARDENAS Common Visit Codes: [id number] INP/OBS CARE (HIGH) REJI CARDENAS Jul 08, 2025 10:51
[2025-07-08] MEDS ORDERED: METOCLOPRAMIDE HCL 5MG/ml INJ 2ml VIAL IV PRN (11:00)
--- NOTE | 2025-07-08 12:07 | DVH ---
CT HEAD WITHOUT CONTRAST INDICATION: R/O stroke, right sided facila droop EXAM DATE: 07/08/2025 11:09 AM COMPARISON: MRI BRAIN HEAD WO CONTRAST on DOS: 02/15/25, CT HEAD WITHOUT CONTRAST on DOS: 02/14/25, CT HE AD W WO CONTRAST on DOS: 02/14/25 RADIATION DOSE: CTDIvol: 48.65 mGy, DLP: 780.19 mGy*cm PROCEDURE: CT scans of the head were obtained from the vertex to the skull base. Sagittal and coronal reconstructions were provided. All CT scans at this medical facility are performed using dose modulation techniques as appropriate t o a performed exam including the following: Automated exposure control was utilized; adjustment of th e MA and/or KV according to patient size; and use of iterative reconstruction technique. FINDINGS: Right parietal lobe encephalomalacia from old infarct. Additiona old left parietal lobe in farct is seen. There is sulcal and ventricular prominence. The brain otherwise shows normal morpholog y and chicas-white matter differentiation, without intracranial hemorrhage, extra-axial fluid collectio n, mass effect or acute large vessel infarct. The ventricles are normal in size. The basal cisterns a re patent. The skull and visible facial bones are intact. The paranasal sinuses, mastoid air cells an d middle ear cavities are well-aerated. The soft tissues of the scalp are unremarkable. IMPRESSION: Right parietal lobe encephalomalacia from old infarct. Additiona old left parietal lobe infarct is s een. No acute intracranial abnormality.
[2025-07-08] MEDS: POTASSIUM CHL 20MEQ/100ML 100 ML IV SCH (13:03)
--- NOTE | 2025-07-08 13:04 | DVHPN2 ---
Progress Note - Dictate Date Seen: Jul 08, 2025 Medical Necessity Reason Pt with a Central, PICC or Fol: No Subjective PT WITH NAUSEA/ VOMITING SEVERE VOLUME DEPLETION HYPOKALEMIA HEMOPTYSIS ANEMIA CVA PANCREATIC CA S/P STENT ANEMIA GALLSTONES CAROTID STENOSIS HX OF CVA LUNG MASS S/P BOPSY RA CAROTID STENOSIS MRI 1. Acute / recent small infarct in the left yost radiata. 2. Evolving subacute to chronic infarct in the right parietal lobe which was present as an acute infarct from MRI brain dated 10/10/2024. 3. Generalized cerebral volume loss and moderate chronic microvascular ischemic change. CAROTID U/S 1. stenosis noted in the right carotid system.50-69% stenosis in the right internal carotid. 2. 50-69% stenosis of the left 3. internal carotid. 4. Echogenic plaque noted vital signs Vital Sign Date Time Temp Pulse Resp B/P (MAP) Pulse Ox O2 Delivery O2 Flow Rate FiO2 07/08/25 09:24 74 158/77 07/08/25 09:00 98.0 16 99 98.0 07/08/25 08:00 Room Air* 0 21 Total Intake and Output 07/07/25 07/07/25 07/08/25 15:00 23:00 07:00 Intake Total 1150 ml 50 ml 200 ml Balance 1150 ml 50 ml 200 ml medications Current Medications Medications Dose Ordered Sig/Keven Route Start Time Stop Time Status Last Admin Dose Admin Acetaminophen/ Hydrocodone Bitart 1 tab Q4HP PRN PO 07/07/25 13:30 Ondansetron HCl 4 mg Q4HP PRN IV 07/07/25 13:30 07/08/25 05:11 4 MG Docusate Sodium 100 mg BIDPRN PRN PO 07/07/25 13:30 Acetaminophen 650 mg Q6HP PRN PO 07/07/25 13:30 Morphine Sulfate 2 mg Q4HPRN PRN IV 07/07/25 13:30 07/08/25 05:08 2 MG Nitroglycerin 0.4 mg Q5MINP PRN SL 07/07/25 13:30 Morphine Sulfate 2 mg Q30M PRN IV 07/07/25 13:30 Enteral Nutritional Formula 240 ml TIDWM PO 07/07/25 18:00 07/08/25 12:00 240 ML Clopidogrel Bisulfate 75 mg DAILY PO 07/08/25 10:00 Metoprolol Succinate 50 mg DAILY PO 07/08/25 10:00 07/08/25 09:24 50 MG Folic Acid 1 mg DAILY PO 07/08/25 10:00 07/08/25 09:23 1 MG Potassium Chloride 20 meq DAILY PO 07/08/25 10:00 07/08/25 09:23 20 MEQ Potassium Chloride 100 ml @ 50 mls/hr Q2H IV 07/08/25 11:00 07/08/25 14:59 07/08/25 13:03 50 MLS/HR Metoclopramide HCl 10 mg Q6HPRN PRN IV 07/08/25 11:00 UNV laboratory and microbiology Laboratory Tests 07/08/25 06:57 Test 07/08/25 06:57 Range/Units Serum Glucose 81 74-106 mg/dL Problem List AUSEA/ VOMITING SEVERE VOLUME DEPLETION HYPOKALEMIA HEMOPTYSIS ANEMIA CVA PANCREATIC CA S/P STENT ANEMIA GALLSTONES CAROTID STENOSIS HX OF CVA LUNG MASS S/P BOPSY RA CAROTID STENOSIS MRI 1. Acute / recent small infarct in the left yost radiata. 2. Evolving subacute to chronic infarct in the right parietal lobe which was present as an acute infarct from MRI brain dated 10/10/2024. 3. Generalized cerebral volume loss and moderate chronic microvascular ischemic change. CAROTID U/S 1. stenosis noted in the right carotid system.50-69% stenosis in the right internal carotid. 2. 50-69% stenosis of the left 3. internal carotid. 4. Echogenic plaque noted Assessment/Plan IV FLUID TRANSFUSE 2 UNITS PRBC ANTIEMETIC CORRECT HYPOKALEMIA TPN Dietary Evaluation Review Comments: 1. continue with current plan of care 2. Offer food that she can tolerate 3. continue Ensure EnLive TID (20g protein 560mg K, 350 kcal per 8 oz serving) 3. Refer and follow up with Nephrology consult and reassess her needs. Expected Outcomes/Goals: Pt will meet her daily requirement if she consumes the Ensure Enlive TID oral supplements) Improved appetite, nutriton related lab values with gradual wt gain Plan discussed with: Patient, Spouse JOSE ANGEL HALE MD Jul 08, 2025 13:04
[2025-07-08] MEDS ORDERED: POTASSIUM CHL 20MEQ/100ML 100 ML IV SCH (13:15)
--- NOTE | 2025-07-08 14:35 | DVHPN2 ---
Progress Note Date Seen: Jul 08, 2025 Medical Necessity Reason Pt with a Central, PICC or Fol: No Subjective Patient reports: No new complaints Review of Systems: HEENT:Normal, CVS:Normal, RESPIRATORY:Normal, GI:Normal, :Normal, MSK:Normal, NEURO:Normal Objective vital signs Vital Sign Date Time Temp Pulse Resp B/P (MAP) Pulse Ox O2 Delivery O2 Flow Rate FiO2 07/08/25 13:00 98.0 89 18 139/65 (89) 98 98.0 07/08/25 08:00 Room Air* 0 21 Total Intake and Output 07/07/25 07/07/25 07/08/25 15:00 23:00 07:00 Intake Total 1150 ml 50 ml 200 ml Balance 1150 ml 50 ml 200 ml medications Current Medications Medications Dose Ordered Sig/Keven Route Start Time Stop Time Status Last Admin Dose Admin Acetaminophen/ Hydrocodone Bitart 1 tab Q4HP PRN PO 07/07/25 13:30 Ondansetron HCl 4 mg Q4HP PRN IV 07/07/25 13:30 07/08/25 05:11 4 MG Docusate Sodium 100 mg BIDPRN PRN PO 07/07/25 13:30 Acetaminophen 650 mg Q6HP PRN PO 07/07/25 13:30 Morphine Sulfate 2 mg Q4HPRN PRN IV 07/07/25 13:30 07/08/25 05:08 2 MG Nitroglycerin 0.4 mg Q5MINP PRN SL 07/07/25 13:30 Morphine Sulfate 2 mg Q30M PRN IV 07/07/25 13:30 Enteral Nutritional Formula 240 ml TIDWM PO 07/07/25 18:00 07/08/25 12:00 240 ML Clopidogrel Bisulfate 75 mg DAILY PO 07/08/25 10:00 Metoprolol Succinate 50 mg DAILY PO 07/08/25 10:00 07/08/25 09:24 50 MG Folic Acid 1 mg DAILY PO 07/08/25 10:00 07/08/25 09:23 1 MG Potassium Chloride 20 meq DAILY PO 07/08/25 10:00 07/08/25 09:23 20 MEQ Potassium Chloride 100 ml @ 50 mls/hr Q2H IV 07/08/25 11:00 07/08/25 14:59 07/08/25 13:03 50 MLS/HR Metoclopramide HCl 10 mg Q6HPRN PRN IV 07/08/25 11:00 UNV Potassium Chloride 100 ml @ 50 mls/hr Q2H IV 07/08/25 13:15 07/08/25 19:14 UNV Examination: GENERAL:Normal, HEENT:Normal, NECK:Normal, LUNGS:Normal, CVS:Normal, ABDOMEN:Normal, MSK:Normal, MSK:Abnormal (brusing on extremities), SKIN:Normal, NEURO:Normal, :Normal laboratory and microbiology Laboratory Tests 07/08/25 06:57 Test 07/08/25 06:57 Range/Units Serum Glucose 81 74-106 mg/dL Problem List/Assessment/Plan Problem List/Assessment/Plan * s/p chemo- nausea/vomiting * anemia/thrombocytopenia/pancytopenia: hold plavix, transfuse * s/p CVA. * Left internal carotid artery stenosis, status post angioplasty and stent. * Pancreatic cancer with metastases. * Hypertension. * Diabetes mellitus: ssi * Pancreatic insufficiency. * Lupus. * Coronary artery disease with stent. * History of gallstones. * mod protein malnutrition: ?tpn * acute renal failure ?vasomotor nephropathy + hypokalemia; replace advance care planning- full code- time spent 19 mins Plan discussed with: Patient, Spouse, Daughter Dietary Evaluation Review Comments: 1. continue with current plan of care 2. Offer food that she can tolerate 3. continue Ensure EnLive TID (20g protein 560mg K, 350 kcal per 8 oz serving) 3. Refer and follow up with Nephrology consult and reassess her needs. Expected Outcomes/Goals: Pt will meet her daily requirement if she consumes the Ensure Enlive TID oral supplements) Improved appetite, nutriton related lab values with gradual wt gain Date of Service: Jul 08, 2025 Billing Provider: ELÍAS CYR MD Common Visit Codes: [id number] INP/OBS CARE(HIGH) Secondary Visit Codes: [id number] CARE PLAN 30 MINUTES ELÍAS CYR MD Jul 08, 2025 14:35
--- NOTE | 2025-07-08 15:28 | ECG ---
[facility] Test Date: 2025-07-07 Test Time: 12:42:46 Pat Name: JEFERSON RICARDO Department: Room: 0287T A Gender: F Psychologist Counseling: GISSELL : 1945 Requested By: LEYLA PARADA Order Number: [id number] Reading MD: Mason Hutchison Measurements Intervals [place] Rate: 128 P: 0 ND: 0 QRS: 23 QRSD: 101 T: 85 QT: 388 QTc: 567 Interpretive Statements Atrial fibrillation Anteroseptal infarct, age indeterminate Prolonged QT interval Artifact in lead(s) I,II,aVR,aVL,aVF Electronically Signed On 07-08-2025 15:39:47 PDT by Mason Hutchison Please click the below link to view image of tracing.
--- NOTE | 2025-07-08 15:29 | ECG ---
[facility] Test Date: 2025-07-07 Test Time: 13:40:06 Pat Name: JEFERSON RICARDO Department: Room: [facility]7T A Gender: F Mangle Catcher: GISSELL : 1945 Requested By: LEYLA PARADA Order Number: [id number] Reading MD: Mason Hutchison Measurements Intervals [place] Rate: 97 P: 45 IN: 169 QRS: -36 QRSD: 89 T: 54 QT: 399 QTc: 507 Interpretive Statements Sinus rhythm Left axis deviation Anterior infarct, age indeterminate Prolonged QT interval Electronically Signed On 07-08-2025 15:40:11 PDT by Mason Hutchison Please click the below link to view image of tracing.
[2025-07-09] VITALS (12 sets, daily range): BP systolic 106–153; BP diastolic 62–81; PULSE 61–77; RESP 15–18; TEMP 97.6–98.5; O2SAT 95–98
[2025-07-09 03:21] LABS: Hematocrit 24.8 % (36.0-46.0); Hemoglobin 8.7 g/dL (12.2-16.2)
[2025-07-09 06:25] LABS: Potassium 3.9 mmol/L (3.5-5.1)
[2025-07-09 06:26] LABS: Anion Gap 10 (5-15); Sodium 141 mmol/L (136-145)
[2025-07-09 06:31] LABS: Calcium 8.5 mg/dL (8.7-10.4); Carbon Dioxide 19 mmol/L (20-31); Chloride 112 mmol/L (98-107); Glucose 100 mg/dL (74-106)
[2025-07-09 06:32] LABS: BUN/Creatinine Ratio 17.1 (10.0-20.0); Blood Urea Nitrogen 25 mg/dL (9-23)
[2025-07-09 06:33] LABS: Magnesium 1.6 mg/dL (1.6-2.6)
[2025-07-09 06:45] LABS: Hematocrit 24.5 % (36.0-46.0)
[2025-07-09 06:47] LABS: Hemoglobin 8.4 g/dL (12.2-16.2); Mean Corpuscular Hemoglobin 31.8 pg (28.0-32.0); Mean Corpuscular Volume 92.5 fL (80.0-100.0); Nucleated Red Blood Cells % 0.2 %
--- NOTE | 2025-07-09 13:36 | DVHPN2 ---
Progress Note - Dictate Date Seen: Jul 09, 2025 Medical Necessity Reason Pt with a Central, PICC or Fol: No Subjective PT WITH NAUSEA/ VOMITING SEVERE VOLUME DEPLETION HYPOKALEMIA HEMOPTYSIS ANEMIA CVA PANCREATIC CA S/P STENT ANEMIA GALLSTONES CAROTID STENOSIS HX OF CVA LUNG MASS S/P BOPSY RA CAROTID STENOSIS MRI 1. Acute / recent small infarct in the left yost radiata. 2. Evolving subacute to chronic infarct in the right parietal lobe which was present as an acute infarct from MRI brain dated 10/10/2024. 3. Generalized cerebral volume loss and moderate chronic microvascular ischemic change. CAROTID U/S 1. stenosis noted in the right carotid system.50-69% stenosis in the right internal carotid. 2. 50-69% stenosis of the left 3. internal carotid. 4. Echogenic plaque noted vital signs Vital Sign Date Time Temp Pulse Resp B/P (MAP) Pulse Ox O2 Delivery O2 Flow Rate FiO2 07/09/25 09:48 65 145/78 07/09/25 08:00 18 95 Room Air* 0 21 07/09/25 07:40 98.5 98.5 Total Intake and Output 07/08/25 07/08/25 07/09/25 15:00 23:00 07:00 Intake Total 400 ml 460 ml 650 ml Balance 400 ml 460 ml 650 ml medications Current Medications Medications Dose Ordered Sig/Keven Route Start Time Stop Time Status Last Admin Dose Admin Acetaminophen/ Hydrocodone Bitart 1 tab Q4HP PRN PO 07/07/25 13:30 Ondansetron HCl 4 mg Q4HP PRN IV 07/07/25 13:30 07/08/25 05:11 4 MG Docusate Sodium 100 mg BIDPRN PRN PO 07/07/25 13:30 Acetaminophen 650 mg Q6HP PRN PO 07/07/25 13:30 Morphine Sulfate 2 mg Q4HPRN PRN IV 07/07/25 13:30 07/08/25 05:08 2 MG Nitroglycerin 0.4 mg Q5MINP PRN SL 07/07/25 13:30 Morphine Sulfate 2 mg Q30M PRN IV 07/07/25 13:30 Enteral Nutritional Formula 240 ml TIDWM PO 07/07/25 18:00 07/09/25 08:00 240 ML Metoprolol Succinate 50 mg DAILY PO 07/08/25 10:00 07/09/25 09:48 50 MG Folic Acid 1 mg DAILY PO 07/08/25 10:00 07/09/25 09:48 1 MG Potassium Chloride 20 meq DAILY PO 07/08/25 10:00 07/09/25 09:48 20 MEQ Potassium Chloride 100 ml @ 50 mls/hr Q2H IV 07/08/25 13:15 07/08/25 19:14 UNV laboratory and microbiology Laboratory Tests 07/09/25 06:04 Test 07/09/25 06:04 Range/Units Serum Glucose 100 74-106 mg/dL Problem List AUSEA/ VOMITING SEVERE VOLUME DEPLETION HYPOKALEMIA HEMOPTYSIS ANEMIA CVA PANCREATIC CA S/P STENT ANEMIA GALLSTONES CAROTID STENOSIS HX OF CVA LUNG MASS S/P BOPSY RA CAROTID STENOSIS MRI 1. Acute / recent small infarct in the left yost radiata. 2. Evolving subacute to chronic infarct in the right parietal lobe which was present as an acute infarct from MRI brain dated 10/10/2024. 3. Generalized cerebral volume loss and moderate chronic microvascular ischemic change. CAROTID U/S 1. stenosis noted in the right carotid system.50-69% stenosis in the right internal carotid. 2. 50-69% stenosis of the left 3. internal carotid. 4. Echogenic plaque noted Assessment/Plan IV FLUID TRANSFUSE 2 UNITS PRBC ANTIEMETIC CORRECT HYPOKALEMIA TPN FAMILY DISCUSSION CONT AGGRESSIVE MANAGEMENT CT HEAD POSITIVE OLD CVA OTHER NO MASS BUT CT WAS WITHOUT CONTRAST Dietary Evaluation Review Comments: 1. continue with current plan of care 2. Offer food that she can tolerate 3. continue Ensure EnLive TID (20g protein 560mg K, 350 kcal per 8 oz serving) 3. Refer and follow up with Nephrology consult and reassess her needs. Expected Outcomes/Goals: Pt will meet her daily requirement if she consumes the Ensure Enlive TID oral supplements) Improved appetite, nutriton related lab values with gradual wt gain Plan discussed with: Patient JOSE ANGEL HALE MD Jul 09, 2025 13:36
--- NOTE | 2025-07-09 13:38 | DVHPN2 ---
Progress Note Date Seen: Jul 09, 2025 Medical Necessity Reason Pt with a Central, PICC or Fol: No Subjective Patient reports: No new complaints Review of Systems: HEENT:Normal, CVS:Normal, RESPIRATORY:Normal, GI:Normal, :Normal, MSK:Normal, NEURO:Normal Objective vital signs Vital Sign Date Time Temp Pulse Resp B/P (MAP) Pulse Ox O2 Delivery O2 Flow Rate FiO2 07/09/25 09:48 65 145/78 07/09/25 08:00 18 95 Room Air* 0 21 07/09/25 07:40 98.5 98.5 Total Intake and Output 07/08/25 07/08/25 07/09/25 15:00 23:00 07:00 Intake Total 400 ml 460 ml 650 ml Balance 400 ml 460 ml 650 ml medications Current Medications Medications Dose Ordered Sig/Keven Route Start Time Stop Time Status Last Admin Dose Admin Acetaminophen/ Hydrocodone Bitart 1 tab Q4HP PRN PO 07/07/25 13:30 Ondansetron HCl 4 mg Q4HP PRN IV 07/07/25 13:30 07/08/25 05:11 4 MG Docusate Sodium 100 mg BIDPRN PRN PO 07/07/25 13:30 Acetaminophen 650 mg Q6HP PRN PO 07/07/25 13:30 Morphine Sulfate 2 mg Q4HPRN PRN IV 07/07/25 13:30 07/08/25 05:08 2 MG Nitroglycerin 0.4 mg Q5MINP PRN SL 07/07/25 13:30 Morphine Sulfate 2 mg Q30M PRN IV 07/07/25 13:30 Enteral Nutritional Formula 240 ml TIDWM PO 07/07/25 18:00 07/09/25 08:00 240 ML Metoprolol Succinate 50 mg DAILY PO 07/08/25 10:00 07/09/25 09:48 50 MG Folic Acid 1 mg DAILY PO 07/08/25 10:00 07/09/25 09:48 1 MG Potassium Chloride 20 meq DAILY PO 07/08/25 10:00 07/09/25 09:48 20 MEQ Potassium Chloride 100 ml @ 50 mls/hr Q2H IV 07/08/25 13:15 07/08/25 19:14 UNV Clonidine HCl 0.1 mg BID PO 07/09/25 22:00 UNV Examination: GENERAL:Normal, HEENT:Normal, NECK:Normal, LUNGS:Normal, CVS:Normal, ABDOMEN:Normal, MSK:Normal, SKIN:Normal, NEURO:Normal, :Normal laboratory and microbiology Laboratory Tests 07/09/25 06:04 Test 07/09/25 06:04 Range/Units Serum Glucose 100 74-106 mg/dL Problem List/Assessment/Plan Problem List/Assessment/Plan * s/p chemo- nausea/vomiting * anemia/thrombocytopenia/pancytopenia: hold plavix, transfuse * s/p CVA. * Left internal carotid artery stenosis, status post angioplasty and stent. * Pancreatic cancer with metastases. * Hypertension. * Diabetes mellitus: ssi * Pancreatic insufficiency. * Lupus. * Coronary artery disease with stent. * History of gallstones. * mod protein malnutrition: ?tpn * acute renal failure ?vasomotor nephropathy + hypokalemia; replace advance care planning- full code- time spent 19 mins Plan discussed with: Patient My Orders My Orders Orders - ELÍAS CYR MD Procedure Category Date Status Time Communication Order ORDERS 07/08/25 Transmitted 14:27 Clonidine Hcl Tablet PHA 07/09/25 Logged (Catapres Tablet) 22:00 Basic Metabolic Panel LAB 07/10/25 Verified 06:00 Complete Blood Count LAB 07/10/25 Verified 06:00 Hydroxychloroquine PHA 07/10/25 Verified Tablet (Plaquenil Tab 10:00 Dietary Evaluation Review Comments: 1. continue with current plan of care 2. Offer food that she can tolerate 3. continue Ensure EnLive TID (20g protein 560mg K, 350 kcal per 8 oz serving) 3. Refer and follow up with Nephrology consult and reassess her needs. Expected Outcomes/Goals: Pt will meet her daily requirement if she consumes the Ensure Enlive TID oral supplements) Improved appetite, nutriton related lab values with gradual wt gain Date of Service: Jul 09, 2025 Billing Provider: ELÍAS CYR MD Common Visit Codes: [id number] INP/OBS CARE(HIGH) Secondary Visit Codes: [id number] CARE PLAN 30 MINUTES ELÍAS CYR MD Jul 09, 2025 13:38
[2025-07-09] MEDS ORDERED: TPN PER PHARMACY 0 ML IV SCH (14:00)
[2025-07-09] MEDS ORDERED: DEXTROSE (50%) 50ML SYRG IV SCH (14:45)
[2025-07-09 15:04] LABS: Triglycerides 96.0 mg/dL (< 150)
[2025-07-09] MEDS: SODIUM PHOSPHATES 24 MEQ in SODIUM CHL 0.9% 100 ML IV ONE (16:55)
[2025-07-09] MEDS: ACCU-CHEK COMFORT CURVE STRIP VI SCH (18:00)
[2025-07-09] MEDS: InsuLIN REG 1unit/0.01ml Soln (100units/ml) SC SCH (18:00)
[2025-07-09] MEDS: AMINO ACID INFUSION IN D10W 1,000 ML IV ONE (21:53)
[2025-07-10] VITALS (8 sets, daily range): BP systolic 133–145; BP diastolic 62–83; PULSE 63–73; RESP 15–20; TEMP 97.8–98.4; O2SAT 98–99
[2025-07-10 05:57] LABS: Hemoglobin 9.5 g/dL (12.2-16.2); Mean Corpuscular Hemoglobin 32.2 pg (28.0-32.0)
[2025-07-10 06:01] LABS: Hematocrit 26.9 % (36.0-46.0); Mean Corpuscular Volume 91.3 fL (80.0-100.0); Nucleated Red Blood Cells % 0.2 %
[2025-07-10 06:08] LABS: Alanine Aminotransferase 15 U/L (7-40); Anion Gap 10 (5-15); BUN/Creatinine Ratio 21.1 (10.0-20.0); Bilirubin, Total 1.0 mg/dL (0.2-1.0); Calcium 9.2 mg/dL (8.7-10.4); Carbon Dioxide 22 mmol/L (20-31); Glucose 101 mg/dL (74-106); Potassium 3.7 mmol/L (3.5-5.1); Sodium 142 mmol/L (136-145)
[2025-07-10 06:10] LABS: Albumin 2.8 g/dL (3.2-4.8); Alkaline Phosphatase 117 U/L (46-116); Blood Urea Nitrogen 31 mg/dL (9-23); Chloride 110 mmol/L (98-107); Magnesium 1.6 mg/dL (1.6-2.6); Total Protein 5.7 g/dL (5.7-8.2)
--- NOTE | 2025-07-10 11:01 | DVHPN2 ---
Progress Note - Dictate Date Seen: Jul 10, 2025 Medical Necessity Reason Pt with a Central, PICC or Fol: No Subjective PT WITH NAUSEA/ VOMITING SEVERE VOLUME DEPLETION HYPOKALEMIA HEMOPTYSIS ANEMIA CVA PANCREATIC CA S/P STENT ANEMIA GALLSTONES CAROTID STENOSIS HX OF CVA LUNG MASS S/P BOPSY RA CAROTID STENOSIS MRI 1. Acute / recent small infarct in the left yost radiata. 2. Evolving subacute to chronic infarct in the right parietal lobe which was present as an acute infarct from MRI brain dated 10/10/2024. 3. Generalized cerebral volume loss and moderate chronic microvascular ischemic change. CAROTID U/S 1. stenosis noted in the right carotid system.50-69% stenosis in the right internal carotid. 2. 50-69% stenosis of the left 3. internal carotid. 4. Echogenic plaque noted vital signs Vital Sign Date Time Temp Pulse Resp B/P (MAP) Pulse Ox O2 Delivery O2 Flow Rate FiO2 07/10/25 09:13 143/73 07/10/25 09:10 66 07/10/25 09:08 98.4 16 99 98.4 07/10/25 08:12 Room Air* 0 21 Total Intake and Output 07/09/25 07/09/25 07/10/25 15:00 23:00 07:00 Intake Total 740 ml 150 ml Balance 740 ml 150 ml medications Current Medications Medications Dose Ordered Sig/Keven Route Start Time Stop Time Status Last Admin Dose Admin Acetaminophen/ Hydrocodone Bitart 1 tab Q4HP PRN PO 07/07/25 13:30 Ondansetron HCl 4 mg Q4HP PRN IV 07/07/25 13:30 07/08/25 05:11 4 MG Docusate Sodium 100 mg BIDPRN PRN PO 07/07/25 13:30 Acetaminophen 650 mg Q6HP PRN PO 07/07/25 13:30 Morphine Sulfate 2 mg Q4HPRN PRN IV 07/07/25 13:30 07/08/25 05:08 2 MG Nitroglycerin 0.4 mg Q5MINP PRN SL 07/07/25 13:30 Morphine Sulfate 2 mg Q30M PRN IV 07/07/25 13:30 Enteral Nutritional Formula 240 ml TIDWM PO 07/07/25 18:00 07/10/25 09:08 240 ML Metoprolol Succinate 50 mg DAILY PO 07/08/25 10:00 07/10/25 09:10 50 MG Folic Acid 1 mg DAILY PO 07/08/25 10:00 07/10/25 09:09 1 MG Potassium Chloride 20 meq DAILY PO 07/08/25 10:00 07/10/25 09:12 20 MEQ Potassium Chloride 100 ml @ 50 mls/hr Q2H IV 07/08/25 13:15 07/08/25 19:14 UNV Clonidine HCl 0.1 mg BID PO 07/09/25 22:00 07/10/25 09:13 0.1 MG Hydroxychloroquine Sulfate 200 mg DAILY PO 07/10/25 10:00 07/10/25 09:13 200 MG Amino Acids 0 ml @ 0 mls/hr PER PHARMACY IV 07/09/25 14:00 Diagnostic Test (Pha) 1 strip Q6HR 07/09/25 18:00 07/10/25 06:00 1 STRIP Insulin Human Regular FOLLOW SLIDING SCALE Q6HR SC 07/09/25 18:00 07/10/25 00:43 2 UNITS Dextrose 50 ml UD IV 07/09/25 14:45 Fat Emulsion Intravenous 50 ml/ Sodium Phosphate 20 meq/Potassium Acetate 20 meq/ Magnesium Sulfate 6 meq/ Multivitamins 10 ml/Amino Acids/ Dextrose/Purified Water 1,126.5 ml @ 47 mls/hr [id number] IV 07/10/25 22:00 07/11/25 21:59 laboratory and microbiology Laboratory Tests 07/10/25 04:38 Test 07/10/25 04:38 Range/Units Serum Glucose 101 74-106 mg/dL Problem List AUSEA/ VOMITING SEVERE VOLUME DEPLETION HYPOKALEMIA HEMOPTYSIS ANEMIA CVA PANCREATIC CA S/P STENT ANEMIA GALLSTONES CAROTID STENOSIS HX OF CVA LUNG MASS S/P BOPSY RA CAROTID STENOSIS MRI 1. Acute / recent small infarct in the left yost radiata. 2. Evolving subacute to chronic infarct in the right parietal lobe which was present as an acute infarct from MRI brain dated 10/10/2024. 3. Generalized cerebral volume loss and moderate chronic microvascular ischemic change. CAROTID U/S 1. stenosis noted in the right carotid system.50-69% stenosis in the right internal carotid. 2. 50-69% stenosis of the left 3. internal carotid. 4. Echogenic plaque noted Assessment/Plan IV FLUID TRANSFUSE 2 UNITS PRBC ANTIEMETIC CORRECT HYPOKALEMIA TPN FAMILY DISCUSSION CONT AGGRESSIVE MANAGEMENT CT HEAD POSITIVE OLD CVA OTHER NO MASS BUT CT WAS WITHOUT CONTRAST HOSPICE ENROLLMENT Dietary Evaluation Review Comments: 1. continue with current plan of care 2. Offer food that she can tolerate 3. continue Ensure EnLive TID (20g protein 560mg K, 350 kcal per 8 oz serving) 3. Refer and follow up with Nephrology consult and reassess her needs. Expected Outcomes/Goals: Pt will meet her daily requirement if she consumes the Ensure Enlive TID oral supplements) Improved appetite, nutriton related lab values with gradual wt gain Plan discussed with: Patient Critical Care Time(min): 35 JOSE ANGEL HALE MD Jul 10, 2025 11:01
[2025-07-10] MEDS: DOCUSATE SOD 100 MG CAP PO PRN (12:11)
--- NOTE | 2025-07-10 17:07 | DVHPN2 ---
Progress Note Date Seen: Jul 10, 2025 Medical Necessity Reason Pt with a Central, PICC or Fol: No Subjective Patient reports: No new complaints Review of Systems: HEENT:Normal, CVS:Normal, RESPIRATORY:Normal, GI:Normal, :Normal, MSK:Normal, NEURO:Normal Objective vital signs Vital Sign Date Time Temp Pulse Resp B/P (MAP) Pulse Ox O2 Delivery O2 Flow Rate FiO2 07/10/25 16:59 98.3 66 18 137/73 (94) 98 98.3 07/10/25 08:12 Room Air* 0 21 Total Intake and Output 07/09/25 07/09/25 07/10/25 15:00 23:00 07:00 Intake Total 740 ml 150 ml Balance 740 ml 150 ml medications Current Medications Medications Dose Ordered Sig/Keven Route Start Time Stop Time Status Last Admin Dose Admin Ondansetron HCl 4 mg Q4HP PRN IV 07/07/25 13:30 07/08/25 05:11 4 MG Docusate Sodium 100 mg BIDPRN PRN PO 07/07/25 13:30 07/10/25 12:11 100 MG Acetaminophen 650 mg Q6HP PRN PO 07/07/25 13:30 Morphine Sulfate 2 mg Q4HPRN PRN IV 07/07/25 13:30 07/08/25 05:08 2 MG Nitroglycerin 0.4 mg Q5MINP PRN SL 07/07/25 13:30 Morphine Sulfate 2 mg Q30M PRN IV 07/07/25 13:30 Enteral Nutritional Formula 240 ml TIDWM PO 07/07/25 18:00 07/10/25 12:08 240 ML Metoprolol Succinate 50 mg DAILY PO 07/08/25 10:00 07/10/25 09:10 50 MG Folic Acid 1 mg DAILY PO 07/08/25 10:00 07/10/25 09:09 1 MG Potassium Chloride 20 meq DAILY PO 07/08/25 10:00 07/10/25 09:12 20 MEQ Potassium Chloride 100 ml @ 50 mls/hr Q2H IV 07/08/25 13:15 07/08/25 19:14 UNV Clonidine HCl 0.1 mg BID PO 07/09/25 22:00 07/10/25 09:13 0.1 MG Hydroxychloroquine Sulfate 200 mg DAILY PO 07/10/25 10:00 07/10/25 09:13 200 MG Amino Acids 0 ml @ 0 mls/hr PER PHARMACY IV 07/09/25 14:00 Diagnostic Test (Pha) 1 strip Q6HR 07/09/25 18:00 07/10/25 12:07 1 STRIP Insulin Human Regular FOLLOW SLIDING SCALE Q6HR SC 07/09/25 18:00 07/10/25 12:07 2 UNITS Dextrose 50 ml UD IV 07/09/25 14:45 Fat Emulsion Intravenous 50 ml/ Sodium Phosphate 20 meq/Potassium Acetate 20 meq/ Magnesium Sulfate 6 meq/ Multivitamins 10 ml/Amino Acids/ Dextrose/Purified Water 1,126.5 ml @ 47 mls/hr [id number] IV 07/10/25 22:00 07/11/25 21:59 Hydromorphone HCl 2 mg Q4HP PRN PO 07/10/25 11:15 Examination: GENERAL:Normal, HEENT:Normal, NECK:Normal, LUNGS:Normal, CVS:Normal, ABDOMEN:Normal, MSK:Normal, SKIN:Normal, NEURO:Normal, :Normal laboratory and microbiology Laboratory Tests 07/10/25 04:38 Test 07/10/25 04:38 Range/Units Serum Glucose 101 74-106 mg/dL Problem List/Assessment/Plan Problem List/Assessment/Plan * s/p chemo- nausea/vomiting * anemia/thrombocytopenia/pancytopenia: hold plavix, transfuse * s/p CVA. * Left internal carotid artery stenosis, status post angioplasty and stent. * Pancreatic cancer with metastases. * Hypertension. * Diabetes mellitus: ssi * Pancreatic insufficiency. * Lupus. * Coronary artery disease with stent. * History of gallstones. * mod protein malnutrition: ?tpn * acute renal failure ?vasomotor nephropathy + hypokalemia; replace advance care planning- full code- time spent 19 mins long dw and daughter about poor prognosis and consideration for hospice Plan discussed with: Patient, Spouse Dietary Evaluation Review Comments: 1. continue with current plan of care 2. Offer food that she can tolerate 3. continue Ensure EnLive TID (20g protein 560mg K, 350 kcal per 8 oz serving) 3. Refer and follow up with Nephrology consult and reassess her needs. Expected Outcomes/Goals: Pt will meet her daily requirement if she consumes the Ensure Enlive TID oral supplements) Improved appetite, nutriton related lab values with gradual wt gain Date of Service: Jul 10, 2025 Billing Provider: ELÍAS CYR MD Common Visit Codes: [id number] INP/OBS CARE(HIGH) Secondary Visit Codes: [id number] CARE PLAN 30 MINUTES ELÍAS CYR MD Jul 10, 2025 17:06
[2025-07-10] MEDS: TPN PER PHARMACY IV NR (21:47)
[2025-07-11] VITALS (8 sets, daily range): BP systolic 113–159; BP diastolic 70–77; PULSE 62–71; RESP 15–16; TEMP 97.7–98.8; O2SAT 98–100
[2025-07-11 06:17] LABS: Alanine Aminotransferase 20 U/L (7-40); Alkaline Phosphatase 104 U/L (46-116); Anion Gap 10 (5-15); BUN/Creatinine Ratio 24.0 (10.0-20.0); Bilirubin, Total 0.6 mg/dL (0.2-1.0); Calcium 8.9 mg/dL (8.7-10.4); Carbon Dioxide 21 mmol/L (20-31); Chloride 107 mmol/L (98-107); Potassium 3.6 mmol/L (3.5-5.1); Sodium 138 mmol/L (136-145)
[2025-07-11 06:21] LABS: Albumin 2.7 g/dL (3.2-4.8); Blood Urea Nitrogen 31 mg/dL (9-23); Glucose 137 mg/dL (74-106); Magnesium 1.5 mg/dL (1.6-2.6); Total Protein 5.3 g/dL (5.7-8.2)
[2025-07-11] MEDS: MAGNESIUM SULFATE 1GM/100ML 100 ML IV ONE (12:24)
--- NOTE | 2025-07-11 14:58 | DVHPN2 ---
Progress Note - Dictate Date Seen: Jul 11, 2025 Medical Necessity Reason Pt with a Central, PICC or Fol: No Subjective PT WITH NAUSEA/ VOMITING SEVERE VOLUME DEPLETION HYPOKALEMIA HEMOPTYSIS ANEMIA CVA PANCREATIC CA S/P STENT ANEMIA GALLSTONES CAROTID STENOSIS HX OF CVA LUNG MASS S/P BOPSY RA CAROTID STENOSIS MRI 1. Acute / recent small infarct in the left yost radiata. 2. Evolving subacute to chronic infarct in the right parietal lobe which was present as an acute infarct from MRI brain dated 10/10/2024. 3. Generalized cerebral volume loss and moderate chronic microvascular ischemic change. CAROTID U/S 1. stenosis noted in the right carotid system.50-69% stenosis in the right internal carotid. 2. 50-69% stenosis of the left 3. internal carotid. 4. Echogenic plaque noted vital signs Vital Sign Date Time Temp Pulse Resp B/P (MAP) Pulse Ox O2 Delivery O2 Flow Rate FiO2 07/11/25 13:00 98.1 70 16 148/74 (98) 98 98.1 07/11/25 08:00 Room Air* 0 21 Total Intake and Output 07/10/25 07/10/25 07/11/25 15:00 23:00 07:00 Intake Total 991 ml 240 ml Balance 991 ml 240 ml medications Current Medications Medications Dose Ordered Sig/Keven Route Start Time Stop Time Status Last Admin Dose Admin Ondansetron HCl 4 mg Q4HP PRN IV 07/07/25 13:30 07/08/25 05:11 4 MG Docusate Sodium 100 mg BIDPRN PRN PO 07/07/25 13:30 07/10/25 21:47 100 MG Acetaminophen 650 mg Q6HP PRN PO 07/07/25 13:30 Morphine Sulfate 2 mg Q4HPRN PRN IV 07/07/25 13:30 07/08/25 05:08 2 MG Nitroglycerin 0.4 mg Q5MINP PRN SL 07/07/25 13:30 Morphine Sulfate 2 mg Q30M PRN IV 07/07/25 13:30 Enteral Nutritional Formula 240 ml TIDWM PO 07/07/25 18:00 07/11/25 12:00 240 ML Metoprolol Succinate 50 mg DAILY PO 07/08/25 10:00 07/11/25 10:18 50 MG Folic Acid 1 mg DAILY PO 07/08/25 10:00 07/11/25 10:15 1 MG Potassium Chloride 20 meq DAILY PO 07/08/25 10:00 07/11/25 10:15 20 MEQ Potassium Chloride 100 ml @ 50 mls/hr Q2H IV 07/08/25 13:15 07/08/25 19:14 UNV Clonidine HCl 0.1 mg BID PO 07/09/25 22:00 07/11/25 10:17 0.1 MG Hydroxychloroquine Sulfate 200 mg DAILY PO 07/10/25 10:00 07/11/25 10:18 200 MG Amino Acids 0 ml @ 0 mls/hr PER PHARMACY IV 07/09/25 14:00 Diagnostic Test (Pha) 1 strip Q6HR 07/09/25 18:00 07/11/25 12:00 1 STRIP Insulin Human Regular FOLLOW SLIDING SCALE Q6HR SC 07/09/25 18:00 07/11/25 06:12 2 UNITS Dextrose 50 ml UD IV 07/09/25 14:45 Fat Emulsion Intravenous 50 ml/ Sodium Phosphate 20 meq/Potassium Acetate 20 meq/ Magnesium Sulfate 6 meq/ Multivitamins 10 ml/Amino Acids/ Dextrose/Purified Water 1,126.5 ml @ 47 mls/hr [id number] IV 07/10/25 22:00 07/11/25 21:59 07/10/25 21:47 47 MLS/HR Hydromorphone HCl 2 mg Q4HP PRN PO 07/10/25 11:15 Fat Emulsion Intravenous 100 ml/Sodium Phosphate 30 meq/ Potassium Acetate 40 meq/Magnesium Sulfate 10 meq/ Multivitamins 10 ml/Chromium/ Copper/Manganese/ Zinc 1 ml/Amino Acids/Dextrose/ Purified Water 1,241 ml @ 51 mls/hr [id number] IV 07/11/25 22:00 07/12/25 21:59 laboratory and microbiology Laboratory Tests 07/11/25 05:21 07/10/25 04:38 Test 07/11/25 05:21 Range/Units Serum Glucose 137 H 74-106 mg/dL Problem List AUSEA/ VOMITING SEVERE VOLUME DEPLETION HYPOKALEMIA HEMOPTYSIS ANEMIA CVA PANCREATIC CA S/P STENT ANEMIA GALLSTONES CAROTID STENOSIS HX OF CVA LUNG MASS S/P BOPSY RA CAROTID STENOSIS MRI 1. Acute / recent small infarct in the left yost radiata. 2. Evolving subacute to chronic infarct in the right parietal lobe which was present as an acute infarct from MRI brain dated 10/10/2024. 3. Generalized cerebral volume loss and moderate chronic microvascular ischemic change. CAROTID U/S 1. stenosis noted in the right carotid system.50-69% stenosis in the right internal carotid. 2. 50-69% stenosis of the left 3. internal carotid. 4. Echogenic plaque noted Assessment/Plan IV FLUID TRANSFUSE 2 UNITS PRBC ANTIEMETIC CORRECT HYPOKALEMIA TPN FAMILY DISCUSSION CONT AGGRESSIVE MANAGEMENT CT HEAD POSITIVE OLD CVA OTHER NO MASS BUT CT WAS WITHOUT CONTRAST HOSPICE ENROLLMENT Dietary Evaluation Review Comments: 1. continue with current plan of care 2. Offer food that she can tolerate 3. continue Ensure EnLive TID (20g protein 560mg K, 350 kcal per 8 oz serving) 3. Refer and follow up with Nephrology consult and reassess her needs. Expected Outcomes/Goals: Pt will meet her daily requirement if she consumes the Ensure Enlive TID oral supplements) Improved appetite, nutriton related lab values with gradual wt gain Plan discussed with: Patient Critical Care Time(min): 35 JOSE ANGEL HALE MD Jul 11, 2025 14:58
--- NOTE | 2025-07-11 16:15 | DVHPN2 ---
Subjective Complaining of headache Reviewed: Care Plan, H&P, Labs, Medications Changes from previous H/P or p: No Changes Eyes: No Pain, No Vision change, No Conjunctivae inflammation, No Eyelid inflammation, No Other, No Redness ENT: No Ear pain, No Ear discharge, No Nose pain, No Nose discharge, No Nose congestion, No Mouth pain, No Mouth swelling, No Throat pain, No Throat swelling, No Other Cardiovascular: No Chest Pain, No Palpitations, No Orthopnea, No Paroxysmal Noc. Dyspnea, No Edema, No Lt Headedness, No Other Respiratory: No Cough, No Dry, No Shortness of breath, No SOB with excertion, No Wheezing, No Hemoptysis, No Pleuritic Pain, No Sputum, No Other Gastrointestinal: Nausea, Vomiting, Abdominal Pain; No Diarrhea, No Constipation, No Melena, No Hematochezia, No Other Genitourinary: No Dysuria, No Frequency, No Incontinence, No Hematuria, No Retention, No Other Musculoskeletal: No other, No neck pain, No shoulder pain, No arm pain, No back pain, No hand pain, No leg pain, No foot pain Skin: No Rash, No Lesions, No Jaundice, No Bruising, No Other Objective Vitals Vital Signs Date Time Temp Pulse Resp B/P (MAP) Pulse Ox O2 Delivery O2 Flow Rate FiO2 07/11/25 13:00 98.1 70 16 148/74 (98) 98 98.1 07/11/25 08:00 Room Air* 0 21 Intake/Output Intake and Output 07/11/25 07:00 Intake Total 1231 ml Balance 1231 ml Intake Oral 780 ml IV Total 451 ml # Voids 3 General Appearance: Alert, Oriented X3, Cooperative, mild distress HEENT: Atraumatic, PERRLA Lungs: Clear to auscultation, Normal air movement Cardiovascular: Normal S1, Normal S2 Abdomen: Normal bowel sounds, Soft, No tenderness Musculoskeletal: Normal sensory function, Normal motor function Skin: Dry, Intact Psych/Mental Status: Mental status NL, Mood NL Medications Current Medications Medications Dose Ordered Sig/Keven Route Start Time Stop Time Status Last Admin Dose Admin Ondansetron HCl 4 mg Q4HP PRN IV 07/07/25 13:30 07/08/25 05:11 4 MG Docusate Sodium 100 mg BIDPRN PRN PO 07/07/25 13:30 07/10/25 21:47 100 MG Acetaminophen 650 mg Q6HP PRN PO 07/07/25 13:30 Morphine Sulfate 2 mg Q4HPRN PRN IV 07/07/25 13:30 07/08/25 05:08 2 MG Nitroglycerin 0.4 mg Q5MINP PRN SL 07/07/25 13:30 Morphine Sulfate 2 mg Q30M PRN IV 07/07/25 13:30 Enteral Nutritional Formula 240 ml TIDWM PO 07/07/25 18:00 07/11/25 12:00 240 ML Metoprolol Succinate 50 mg DAILY PO 07/08/25 10:00 07/11/25 10:18 50 MG Folic Acid 1 mg DAILY PO 07/08/25 10:00 07/11/25 10:15 1 MG Potassium Chloride 20 meq DAILY PO 07/08/25 10:00 07/11/25 10:15 20 MEQ Potassium Chloride 100 ml @ 50 mls/hr Q2H IV 07/08/25 13:15 07/08/25 19:14 UNV Clonidine HCl 0.1 mg BID PO 07/09/25 22:00 07/11/25 10:17 0.1 MG Hydroxychloroquine Sulfate 200 mg DAILY PO 07/10/25 10:00 07/11/25 10:18 200 MG Amino Acids 0 ml @ 0 mls/hr PER PHARMACY IV 07/09/25 14:00 Diagnostic Test (Pha) 1 strip Q6HR 07/09/25 18:00 07/11/25 12:00 1 STRIP Insulin Human Regular FOLLOW SLIDING SCALE Q6HR SC 07/09/25 18:00 07/11/25 06:12 2 UNITS Dextrose 50 ml UD IV 07/09/25 14:45 Fat Emulsion Intravenous 50 ml/ Sodium Phosphate 20 meq/Potassium Acetate 20 meq/ Magnesium Sulfate 6 meq/ Multivitamins 10 ml/Amino Acids/ Dextrose/Purified Water 1,126.5 ml @ 47 mls/hr [id number] IV 07/10/25 22:00 07/11/25 21:59 07/10/25 21:47 47 MLS/HR Hydromorphone HCl 2 mg Q4HP PRN PO 07/10/25 11:15 Fat Emulsion Intravenous 100 ml/Sodium Phosphate 30 meq/ Potassium Acetate 40 meq/Magnesium Sulfate 10 meq/ Multivitamins 10 ml/Chromium/ Copper/Manganese/ Zinc 1 ml/Amino Acids/Dextrose/ Purified Water 1,241 ml @ 51 mls/hr [id number] IV 07/11/25 22:00 07/12/25 21:59 Laboratory Results Laboratory Tests 07/10/25 04:38 07/11/25 05:21 Chemistry Test 07/11/25 05:21 Albumin 2.7 g/dL (3.2-4.8) L Calcium Level 8.9 mg/dL (8.7-10.4) Magnesium Level 1.5 mg/dL (1.6-2.6) L Phosphorus Level 2.6 mg/dL (2.4-5.1) Total Protein 5.3 g/dL (5.7-8.2) L LFT Test 07/11/25 05:21 Alanine Aminotransferase (ALT) 20 U/L (7-40) Alkaline Phosphatase 104 U/L (46-116) Aspartate Amino Transferase (AST) 37 U/L (13-40) Total Bilirubin 0.6 mg/dL (0.2-1.0) Urinalysis Test 07/07/25 10:04 Urine Color Yellow (Yellow) Urine Clarity Clear (Clear) Urine pH 7.0 (5.0-9.0) Urine Specific [place] 1.008 (1.001-1.035) Urine Protein 1+ (Negative) H Urine Ketones Trace (Negative) Urine Blood Trace /uL (Negative) H Urine Nitrite Negative (Negative) Urine Bilirubin Negative (Negative) Urine Urobilinogen Normal mg/dL (Negative) Urine Leukocyte Esterase Trace /uL (Negative) Urine Glucose 3+ mg/dL (Normal) H Labs and/or images reviewed: Labs reviewed by me, Image(s) reviewed by me Assessment/Plan Assessment/Plan Impression: -Pancreatic Ca: chemo treatment -HTN -DM -Lupus -Carotid Stenosis -Cholelithiasis -Pancytopenia Plan: -Discussed possible Hospice with Miles, spouse. Deferring Hospice at this time -RISS -Continue TPN -Antiemetic -Electrolyte Replacement -Further imaging per Dr. Howard post discussion with Oncologist. -PT consult Total time spent with patient discussing and formulating plan of care: 35 minutes. This medical document was created using an electronic medical record system with irisnoteation system. Although this document has been carefully reviewed, there may still be some phonetic and typographical errors. These areas are purely typographical due to imperfections of the software programs, and do not reflect any compromise in the patient's medical care. Plan discussed with: Patient, Other (RN) Date of Service: Jul 11, 2025 Billing Provider: GLENN HORVATH NP Common Visit Codes: [id number] INP/OBS CARE(HIGH) GLENN HORVATH NP Jul 11, 2025 16:15
[2025-07-11] MEDS: TPN PER PHARMACY IV NR (22:19)
[2025-07-12] VITALS (8 sets, daily range): BP systolic 116–154; BP diastolic 62–86; PULSE 59–78; RESP 14–18; TEMP 96.7–98.3; O2SAT 92–100
[2025-07-12 14:05] LABS: Alanine Aminotransferase 34 U/L (7-40); Anion Gap 11 (5-15); BUN/Creatinine Ratio 19.3 (10.0-20.0); Blood Urea Nitrogen 23 mg/dL (9-23); Calcium 9.1 mg/dL (8.7-10.4); Chloride 105 mmol/L (98-107); Magnesium 2.4 mg/dL (1.6-2.6); Potassium 3.8 mmol/L (3.5-5.1); Total Protein 6.2 g/dL (5.7-8.2)
[2025-07-12 14:07] LABS: Bilirubin, Total 0.6 mg/dL (0.2-1.0)
[2025-07-12 14:11] LABS: Albumin 3.1 g/dL (3.2-4.8); Alkaline Phosphatase 169 U/L (46-116); Carbon Dioxide 19 mmol/L (20-31); Glucose 126 mg/dL (74-106); Sodium 135 mmol/L (136-145)
--- NOTE | 2025-07-12 16:51 | DVHPN2 ---
Subjective WEAKNESS Reviewed: Care Plan, H&P, Labs, Medications, Previous Orders, Radiology Changes from previous H/P or p: No Changes Objective Vitals Vital Signs Date Time Temp Pulse Resp B/P (MAP) Pulse Ox O2 Delivery O2 Flow Rate FiO2 07/12/25 13:21 97.8 69 16 148/67 (94) 97 97.8 07/12/25 08:00 Room Air* 0 21 Intake/Output Intake and Output 07/12/25 07:00 Intake Total 270 ml Balance 270 ml Intake Oral 270 ml # Voids 3 General Appearance: Alert, Oriented X3, Cooperative HEENT: Atraumatic, Other (HAIR LOSS) Lungs: Clear to auscultation, Normal air movement Cardiovascular: Regular rate Abdomen: Normal bowel sounds, Other (TENDERNESS MID GASTRIC) Medications Current Medications Medications Dose Ordered Sig/Keven Route Start Time Stop Time Status Last Admin Dose Admin Ondansetron HCl 4 mg Q4HP PRN IV 07/07/25 13:30 07/08/25 05:11 4 MG Docusate Sodium 100 mg BIDPRN PRN PO 07/07/25 13:30 07/10/25 21:47 100 MG Acetaminophen 650 mg Q6HP PRN PO 07/07/25 13:30 Morphine Sulfate 2 mg Q4HPRN PRN IV 07/07/25 13:30 07/08/25 05:08 2 MG Nitroglycerin 0.4 mg Q5MINP PRN SL 07/07/25 13:30 Morphine Sulfate 2 mg Q30M PRN IV 07/07/25 13:30 Enteral Nutritional Formula 240 ml TIDWM PO 07/07/25 18:00 07/12/25 13:30 240 ML Metoprolol Succinate 50 mg DAILY PO 07/08/25 10:00 07/12/25 09:08 50 MG Folic Acid 1 mg DAILY PO 07/08/25 10:00 07/12/25 09:08 1 MG Potassium Chloride 20 meq DAILY PO 07/08/25 10:00 07/12/25 09:09 20 MEQ Potassium Chloride 100 ml @ 50 mls/hr Q2H IV 07/08/25 13:15 07/08/25 19:14 UNV Clonidine HCl 0.1 mg BID PO 07/09/25 22:00 07/11/25 22:44 0.1 MG Hydroxychloroquine Sulfate 200 mg DAILY PO 07/10/25 10:00 07/11/25 10:18 200 MG Amino Acids 0 ml @ 0 mls/hr PER PHARMACY IV 07/09/25 14:00 Diagnostic Test (Pha) 1 strip Q6HR 07/09/25 18:00 07/12/25 11:16 1 STRIP Insulin Human Regular FOLLOW SLIDING SCALE Q6HR SC 07/09/25 18:00 07/12/25 11:17 2 UNITS Dextrose 50 ml UD IV 07/09/25 14:45 Hydromorphone HCl 2 mg Q4HP PRN PO 07/10/25 11:15 Fat Emulsion Intravenous 100 ml/Sodium Phosphate 30 meq/ Potassium Acetate 40 meq/Magnesium Sulfate 10 meq/ Multivitamins 10 ml/Chromium/ Copper/Manganese/ Zinc 1 ml/Amino Acids/Dextrose/ Purified Water 1,241 ml @ 51 mls/hr [id number] IV 07/11/25 22:00 07/12/25 21:59 07/11/25 22:19 51 MLS/HR Amino Acids/ Electrolytes/ Dextrose 1,000 ml @ 41 mls/hr DAILY@2200 IV 07/12/25 22:00 07/13/25 21:59 Laboratory Results Laboratory Tests 07/10/25 04:38 07/12/25 12:09 Chemistry Test 07/12/25 12:09 Albumin 3.1 g/dL (3.2-4.8) L Calcium Level 9.1 mg/dL (8.7-10.4) Magnesium Level 2.4 mg/dL (1.6-2.6) Phosphorus Level 3.1 mg/dL (2.4-5.1) Total Protein 6.2 g/dL (5.7-8.2) LFT Test 07/12/25 12:09 Alanine Aminotransferase (ALT) 34 U/L (7-40) Alkaline Phosphatase 169 U/L (46-116) H Aspartate Amino Transferase (AST) 72 U/L (13-40) H Total Bilirubin 0.6 mg/dL (0.2-1.0) Urinalysis Test 07/07/25 10:04 Urine Color Yellow (Yellow) Urine Clarity Clear (Clear) Urine pH 7.0 (5.0-9.0) Urine Specific [place] 1.008 (1.001-1.035) Urine Protein 1+ (Negative) H Urine Ketones Trace (Negative) Urine Blood Trace /uL (Negative) H Urine Nitrite Negative (Negative) Urine Bilirubin Negative (Negative) Urine Urobilinogen Normal mg/dL (Negative) Urine Leukocyte Esterase Trace /uL (Negative) Urine Glucose 3+ mg/dL (Normal) H Assessment/Plan Assessment/Plan AFib with RVR Pancreatic cancer status post stent Pancytopenia Carotid stenosis Lupus and rheumatoid arthritis Diabetes Hypertension Cholelithiasis CVA few months ago and the end of last year Obesity Plan: We will obtain brain MRI. PT evaluation. Continue current plan of care. Further plan per orders Plan discussed with: Patient, Spouse My Orders Orders - ABHISHEK TIRADO MD Procedure Category Date Status Time Brain Head Wo Contrast MRI 07/12/25 Logged 16:45 Pt Request For Service PT 07/12/25 Logged 16:46 Complete Blood Count LAB 07/13/25 Verified 06:00 Thyroid Stimulating LAB 07/12/25 Verified Hormone 16:48 Vitamin B1 (Thiamine) LAB 07/12/25 Verified 16:48 Vitamin D, 25-Hydroxy LAB 07/12/25 Verified 16:48 Date of Service: Jul 12, 2025 Billing Provider: ABHISHEK TIRADO MD Common Visit Codes: [id number] INP/OBS CARE(HIGH) ABHISHEK TIRADO MD Jul 12, 2025 16:51
[2025-07-12] MEDS: AMINO ACID INFUSION IN D10W 1,000 ML IV SCH (22:17)
[2025-07-13] VITALS (9 sets, daily range): BP systolic 138–189; BP diastolic 73–87; PULSE 20–86; RESP 16–20; TEMP 97.5–98.2; O2SAT 98–99
[2025-07-13 11:32] LABS: Hemoglobin 9.3 g/dL (12.2-16.2)
[2025-07-13 11:34] LABS: Hematocrit 26.9 % (36.0-46.0); Mean Corpuscular Hemoglobin 32.4 pg (28.0-32.0); Mean Corpuscular Volume 93.6 fL (80.0-100.0)
[2025-07-13 11:49] LABS: Alanine Aminotransferase 32 U/L (7-40); Anion Gap 9 (5-15); BUN/Creatinine Ratio 25.9 (10.0-20.0); Bilirubin, Total 0.7 mg/dL (0.2-1.0); Calcium 8.9 mg/dL (8.7-10.4); Carbon Dioxide 21 mmol/L (20-31); Chloride 105 mmol/L (98-107); Magnesium 1.8 mg/dL (1.6-2.6); Potassium 3.6 mmol/L (3.5-5.1); Total Protein 6.0 g/dL (5.7-8.2)
[2025-07-13 11:56] LABS: Total Cells Counted 100.0 (100)
[2025-07-13 12:02] LABS: Albumin 3.0 g/dL (3.2-4.8); Alkaline Phosphatase 212 U/L (46-116); Blood Urea Nitrogen 29 mg/dL (9-23); Glucose 131 mg/dL (74-106); Sodium 135 mmol/L (136-145)
--- NOTE | 2025-07-13 12:08 | DVH ---
MR brain without contrast HISTORY: RO METS Comparison: 02/15/2025 TECHNIQUE: MR was performed with a surface coil at 1.5 T magnet. Sagittal, axial and coronal T1 and T 2-weighted images were obtained. FINDINGS: No areas of restricted diffusion on diffusion-weighted images. Confluent areas of T2 signal hyperintensity in the periventricular and deep frontoparietal white marvel er. Focal area of encephalomalacia in the right posterior parietal lobe There is ex vacuo enlargement of the ventricles. No midline shift. Cortical sulcal markings are promi nent. No extra-axial fluid collections. Air-fluid level in the right maxillary sinus The orbits, sella, and cerebellopontine angles are unremarkable in appearance IMPRESSION: There is cortical atrophy and extensive periventricular leukoencephalopathy present. There is a T2 signal hyperintensity in the right posterior parietal lobe either representing hemorrha gic infarct or lesion. Recommend postcontrast imaging for further evaluation
[2025-07-13] MEDS: hydrALAZINE HCL 20 MG/ML VL IV PRN (14:30)
[2025-07-13] MEDS: ACETAMINOPHEN 325 MG TAB PO PRN (16:03)
--- NOTE | 2025-07-13 17:39 | DVHPN2 ---
Subjective WEAKNESS Reviewed: Care Plan, H&P, Labs, Medications, Previous Orders, Radiology Changes from previous H/P or p: No Changes Objective Vitals Vital Signs Date Time Temp Pulse Resp B/P (MAP) Pulse Ox O2 Delivery O2 Flow Rate FiO2 07/13/25 17:03 98.2 07/13/25 17:00 80 19 164/83 (110) 99 07/13/25 07:45 Room Air* 0 21 Intake/Output Intake and Output 07/13/25 07:00 Intake Total 530 ml Balance 530 ml Intake Oral 530 ml # Voids 5 General Appearance: Alert, Oriented X3, Cooperative HEENT: Atraumatic, Other (HAIR LOSS) Lungs: Clear to auscultation, Normal air movement Cardiovascular: Regular rate Abdomen: Normal bowel sounds, Other (TENDERNESS MID GASTRIC) Medications Current Medications Medications Dose Ordered Sig/Keven Route Start Time Stop Time Status Last Admin Dose Admin Ondansetron HCl 4 mg Q4HP PRN IV 07/07/25 13:30 07/08/25 05:11 4 MG Docusate Sodium 100 mg BIDPRN PRN PO 07/07/25 13:30 07/10/25 21:47 100 MG Acetaminophen 650 mg Q6HP PRN PO 07/07/25 13:30 07/13/25 16:03 650 MG Morphine Sulfate 2 mg Q4HPRN PRN IV 07/07/25 13:30 07/08/25 05:08 2 MG Nitroglycerin 0.4 mg Q5MINP PRN SL 07/07/25 13:30 Morphine Sulfate 2 mg Q30M PRN IV 07/07/25 13:30 Enteral Nutritional Formula 240 ml TIDWM PO 07/07/25 18:00 07/13/25 14:08 240 ML Metoprolol Succinate 50 mg DAILY PO 07/08/25 10:00 07/13/25 09:22 50 MG Folic Acid 1 mg DAILY PO 07/08/25 10:00 07/13/25 09:19 1 MG Potassium Chloride 20 meq DAILY PO 07/08/25 10:00 07/13/25 09:20 20 MEQ Potassium Chloride 100 ml @ 50 mls/hr Q2H IV 07/08/25 13:15 07/08/25 19:14 UNV Clonidine HCl 0.1 mg BID PO 07/09/25 22:00 07/13/25 09:23 0.1 MG Hydroxychloroquine Sulfate 200 mg DAILY PO 07/10/25 10:00 07/11/25 10:18 200 MG Amino Acids 0 ml @ 0 mls/hr PER PHARMACY IV 07/09/25 14:00 Diagnostic Test (Pha) 1 strip Q6HR 07/09/25 18:00 07/13/25 17:12 1 STRIP Insulin Human Regular FOLLOW SLIDING SCALE Q6HR SC 07/09/25 18:00 07/13/25 12:40 2 UNITS Dextrose 50 ml UD IV 07/09/25 14:45 Hydromorphone HCl 2 mg Q4HP PRN PO 07/10/25 11:15 Amino Acids/ Electrolytes/ Dextrose 1,000 ml @ 41 mls/hr DAILY@2200 IV 07/12/25 22:00 07/13/25 21:59 07/12/25 22:17 41 MLS/HR Fat Emulsion Intravenous 150 ml/Sodium Acetate 30 meq/Potassium Acetate 40 meq/ Magnesium Sulfate 12 meq/ Multivitamins 10 ml/Chromium/ Copper/Manganese/ Zinc 1 ml/Amino Acids/Dextrose/ Purified Water 1,249 ml @ 52 mls/hr Q24H2M IV 07/13/25 22:00 07/14/25 21:59 Hydralazine HCl 10 mg Q6HP PRN IV 07/13/25 12:45 07/13/25 14:30 10 MG Laboratory Results Laboratory Tests 07/13/25 11:13 Chemistry Test 07/13/25 11:13 Albumin 3.0 g/dL (3.2-4.8) L Calcium Level 8.9 mg/dL (8.7-10.4) Magnesium Level 1.8 mg/dL (1.6-2.6) Phosphorus Level 3.5 mg/dL (2.4-5.1) Total Protein 6.0 g/dL (5.7-8.2) LFT Test 07/13/25 11:13 Alanine Aminotransferase (ALT) 32 U/L (7-40) Alkaline Phosphatase 212 U/L (46-116) H Aspartate Amino Transferase (AST) 61 U/L (13-40) H Total Bilirubin 0.7 mg/dL (0.2-1.0) Urinalysis Test 07/07/25 10:04 Urine Color Yellow (Yellow) Urine Clarity Clear (Clear) Urine pH 7.0 (5.0-9.0) Urine Specific [place] 1.008 (1.001-1.035) Urine Protein 1+ (Negative) H Urine Ketones Trace (Negative) Urine Blood Trace /uL (Negative) H Urine Nitrite Negative (Negative) Urine Bilirubin Negative (Negative) Urine Urobilinogen Normal mg/dL (Negative) Urine Leukocyte Esterase Trace /uL (Negative) Urine Glucose 3+ mg/dL (Normal) H Assessment/Plan Assessment/Plan Unclear lesion in the brain on MRI AFib with RVR Pancreatic cancer status post stent Pancytopenia Carotid stenosis Lupus and rheumatoid arthritis Diabetes Hypertension Cholelithiasis CVA few months ago and the end of last year Obesity Plan: Continue current plan of care. Consider repeat MRI with IV contrast if kidney function better Plan discussed with: Patient My Orders Orders - ABHISHEK TIRADO MD Procedure Category Date Status Time Vitamin B12 LAB 07/13/25 In Process 12:38 Hydralazine Injection PHA 07/13/25 In Process (Apresoline Inject 12:45 Date of Service: Jul 13, 2025 Billing Provider: ABHISHEK TIRADO MD Common Visit Codes: [id number] INP/OBS CARE(HIGH) ABHISHEK TIRADO MD Jul 13, 2025 17:39
[2025-07-13] MEDS: TPN PER PHARMACY IV NR (22:00)
[2025-07-14] VITALS (10 sets, daily range): BP systolic 109–151; BP diastolic 54–83; PULSE 60–76; RESP 16–18; TEMP 98–98.9; O2SAT 96–99
[2025-07-14 05:44] LABS: Hematocrit 25.1 % (36.0-46.0); Hemoglobin 8.8 g/dL (12.2-16.2); Mean Corpuscular Hemoglobin 32.7 pg (28.0-32.0); Mean Corpuscular Volume 93.2 fL (80.0-100.0)
[2025-07-14 06:00] LABS: Alanine Aminotransferase 36 U/L (7-40); Anion Gap 10 (5-15); BUN/Creatinine Ratio 29.2 (10.0-20.0); Calcium 9.4 mg/dL (8.7-10.4); Carbon Dioxide 23 mmol/L (20-31); Chloride 105 mmol/L (98-107); Magnesium 2.3 mg/dL (1.6-2.6); Potassium 3.8 mmol/L (3.5-5.1); Sodium 138 mmol/L (136-145)
[2025-07-14 06:01] LABS: Bilirubin, Total 0.5 mg/dL (0.2-1.0)
[2025-07-14 06:04] LABS: Albumin 2.9 g/dL (3.2-4.8); Alkaline Phosphatase 229 U/L (46-116); Blood Urea Nitrogen 31 mg/dL (9-23); Glucose 123 mg/dL (74-106); Total Protein 5.7 g/dL (5.7-8.2)
[2025-07-14 06:54] LABS: Total Cells Counted 100.0 (100)
--- NOTE | 2025-07-14 12:17 | DVHPN2 ---
Progress Note Date Seen: Jul 14, 2025 Medical Necessity Reason Pt with a Central, PICC or Fol: No Subjective Patient reports: No new complaints Review of Systems: HEENT:Normal, CVS:Normal, RESPIRATORY:Normal, GI:Normal, :Normal, MSK:Normal, NEURO:Normal Objective vital signs Vital Sign Date Time Temp Pulse Resp B/P (MAP) Pulse Ox O2 Delivery O2 Flow Rate FiO2 07/14/25 11:06 140/83 07/14/25 11:06 75 07/14/25 09:00 98.9 18 98 98.9 07/14/25 07:48 Room Air* 0 21 Total Intake and Output 07/13/25 07/13/25 07/14/25 15:00 23:00 07:00 Intake Total 200 ml 800 ml Balance 200 ml 800 ml medications Current Medications Medications Dose Ordered Sig/Keven Route Start Time Stop Time Status Last Admin Dose Admin Ondansetron HCl 4 mg Q4HP PRN IV 07/07/25 13:30 07/08/25 05:11 4 MG Docusate Sodium 100 mg BIDPRN PRN PO 07/07/25 13:30 07/10/25 21:47 100 MG Acetaminophen 650 mg Q6HP PRN PO 07/07/25 13:30 07/13/25 16:03 650 MG Morphine Sulfate 2 mg Q4HPRN PRN IV 07/07/25 13:30 07/08/25 05:08 2 MG Nitroglycerin 0.4 mg Q5MINP PRN SL 07/07/25 13:30 Morphine Sulfate 2 mg Q30M PRN IV 07/07/25 13:30 Enteral Nutritional Formula 240 ml TIDWM PO 07/07/25 18:00 07/14/25 12:04 240 ML Metoprolol Succinate 50 mg DAILY PO 07/08/25 10:00 07/14/25 11:06 50 MG Folic Acid 1 mg DAILY PO 07/08/25 10:00 07/14/25 10:04 1 MG Potassium Chloride 20 meq DAILY PO 07/08/25 10:00 07/14/25 10:05 20 MEQ Potassium Chloride 100 ml @ 50 mls/hr Q2H IV 07/08/25 13:15 07/08/25 19:14 UNV Clonidine HCl 0.1 mg BID PO 07/09/25 22:00 07/14/25 11:06 0.1 MG Hydroxychloroquine Sulfate 200 mg DAILY PO 07/10/25 10:00 07/14/25 10:05 200 MG Amino Acids 0 ml @ 0 mls/hr PER PHARMACY IV 07/09/25 14:00 Diagnostic Test (Pha) 1 strip Q6HR 07/09/25 18:00 07/14/25 12:05 1 STRIP Insulin Human Regular FOLLOW SLIDING SCALE Q6HR SC 07/09/25 18:00 07/14/25 12:08 4 UNITS Dextrose 50 ml UD IV 07/09/25 14:45 Hydromorphone HCl 2 mg Q4HP PRN PO 07/10/25 11:15 Fat Emulsion Intravenous 150 ml/Sodium Acetate 30 meq/Potassium Acetate 40 meq/ Magnesium Sulfate 12 meq/ Multivitamins 10 ml/Chromium/ Copper/Manganese/ Zinc 1 ml/Amino Acids/Dextrose/ Purified Water 1,249 ml @ 52 mls/hr Q24H2M IV 07/13/25 22:00 07/14/25 21:59 07/13/25 22:00 52 MLS/HR Hydralazine HCl 10 mg Q6HP PRN IV 07/13/25 12:45 07/13/25 14:30 10 MG Fat Emulsion Intravenous 150 ml/Sodium Acetate 30 meq/Potassium Acetate 40 meq/ Magnesium Sulfate 4 meq/ Multivitamins 10 ml/Chromium/ Copper/Manganese/ Zinc 1 ml/Amino Acids/Dextrose/ Purified Water 1,247 ml @ 52 mls/hr [id number] IV 07/14/25 22:00 07/15/25 21:59 Examination: GENERAL:Normal, HEENT:Normal, NECK:Normal, LUNGS:Normal, CVS:Normal, ABDOMEN:Normal, MSK:Normal, SKIN:Normal, NEURO:Normal, :Normal laboratory and microbiology Laboratory Tests 07/14/25 05:02 Test 07/14/25 05:02 Range/Units Serum Glucose 123 H 74-106 mg/dL Problem List/Assessment/Plan Problem List/Assessment/Plan * s/p chemo- nausea/vomiting * anemia/thrombocytopenia/pancytopenia: hold plavix, transfuse * s/p CVA. * Left internal carotid artery stenosis, status post angioplasty and stent. * Pancreatic cancer with metastases. * Hypertension. * Diabetes mellitus: ssi * Pancreatic insufficiency. * Lupus. * Coronary artery disease with stent. * History of gallstones. * mod protein malnutrition: dc tpn * acute renal failure ?vasomotor nephropathy + hypokalemia; replace advance care planning- full code- time spent 19 mins long dw and daughter about poor prognosis and consideration for hospice Plan discussed with: Patient Dietary Evaluation Review Comments: 1. continue with current plan of care 2. Offer food that she can tolerate 3. continue Ensure EnLive TID (20g protein 560mg K, 350 kcal per 8 oz serving) 3. Refer and follow up with Nephrology consult and reassess her needs. Expected Outcomes/Goals: Pt will meet her daily requirement if she consumes the Ensure Enlive TID oral supplements) Improved appetite, nutriton related lab values with gradual wt gain Date of Service: Jul 14, 2025 Billing Provider: ELÍAS CYR MD Common Visit Codes: [id number] INP/OBS CARE(HIGH) ELÍAS CYR MD Jul 14, 2025 12:17
--- NOTE | 2025-07-14 14:16 | DVHPN2 ---
Progress Note - Dictate Date Seen: Jul 14, 2025 Medical Necessity Reason Pt with a Central, PICC or Fol: No Subjective PT WITH NAUSEA/ VOMITING SEVERE VOLUME DEPLETION HYPOKALEMIA HEMOPTYSIS ANEMIA CVA PANCREATIC CA S/P STENT ANEMIA GALLSTONES CAROTID STENOSIS HX OF CVA LUNG MASS S/P BOPSY RA CAROTID STENOSIS MRI 1. Acute / recent small infarct in the left yost radiata. 2. Evolving subacute to chronic infarct in the right parietal lobe which was present as an acute infarct from MRI brain dated 10/10/2024. 3. Generalized cerebral volume loss and moderate chronic microvascular ischemic change. CAROTID U/S 1. stenosis noted in the right carotid system.50-69% stenosis in the right internal carotid. 2. 50-69% stenosis of the left 3. internal carotid. 4. Echogenic plaque noted vital signs Vital Sign Date Time Temp Pulse Resp B/P (MAP) Pulse Ox O2 Delivery O2 Flow Rate FiO2 07/14/25 12:06 151/81 07/14/25 11:06 75 07/14/25 09:00 98.9 18 98 98.9 07/14/25 07:48 Room Air* 0 21 Total Intake and Output 07/13/25 07/13/25 07/14/25 15:00 23:00 07:00 Intake Total 200 ml 800 ml Balance 200 ml 800 ml medications Current Medications Medications Dose Ordered Sig/Keven Route Start Time Stop Time Status Last Admin Dose Admin Ondansetron HCl 4 mg Q4HP PRN IV 07/07/25 13:30 07/08/25 05:11 4 MG Docusate Sodium 100 mg BIDPRN PRN PO 07/07/25 13:30 07/10/25 21:47 100 MG Acetaminophen 650 mg Q6HP PRN PO 07/07/25 13:30 07/13/25 16:03 650 MG Morphine Sulfate 2 mg Q4HPRN PRN IV 07/07/25 13:30 07/08/25 05:08 2 MG Nitroglycerin 0.4 mg Q5MINP PRN SL 07/07/25 13:30 Morphine Sulfate 2 mg Q30M PRN IV 07/07/25 13:30 Enteral Nutritional Formula 240 ml TIDWM PO 07/07/25 18:00 07/14/25 12:04 240 ML Metoprolol Succinate 50 mg DAILY PO 07/08/25 10:00 07/14/25 11:06 50 MG Folic Acid 1 mg DAILY PO 07/08/25 10:00 07/14/25 10:04 1 MG Potassium Chloride 20 meq DAILY PO 07/08/25 10:00 07/14/25 10:05 20 MEQ Potassium Chloride 100 ml @ 50 mls/hr Q2H IV 07/08/25 13:15 07/08/25 19:14 UNV Clonidine HCl 0.1 mg BID PO 07/09/25 22:00 07/14/25 11:06 0.1 MG Hydroxychloroquine Sulfate 200 mg DAILY PO 07/10/25 10:00 07/14/25 10:05 200 MG Diagnostic Test (Pha) 1 strip Q6HR 07/09/25 18:00 07/14/25 12:05 1 STRIP Insulin Human Regular FOLLOW SLIDING SCALE Q6HR SC 07/09/25 18:00 07/14/25 12:08 4 UNITS Dextrose 50 ml UD IV 07/09/25 14:45 Hydromorphone HCl 2 mg Q4HP PRN PO 07/10/25 11:15 Hydralazine HCl 10 mg Q6HP PRN IV 07/13/25 12:45 07/13/25 14:30 10 MG Fat Emulsion Intravenous 150 ml/Sodium Acetate 30 meq/Potassium Acetate 40 meq/ Magnesium Sulfate 4 meq/ Multivitamins 10 ml/Chromium/ Copper/Manganese/ Zinc 1 ml/Amino Acids/Dextrose/ Purified Water 1,247 ml @ 52 mls/hr [id number] IV 07/14/25 22:00 07/14/25 22:00 Cancel laboratory and microbiology Laboratory Tests 07/14/25 05:02 Test 07/14/25 05:02 Range/Units Serum Glucose 123 H 74-106 mg/dL Problem List AUSEA/ VOMITING SEVERE VOLUME DEPLETION HYPOKALEMIA HEMOPTYSIS ANEMIA CVA PANCREATIC CA S/P STENT ANEMIA GALLSTONES CAROTID STENOSIS HX OF CVA LUNG MASS S/P BOPSY RA CAROTID STENOSIS MRI 1. Acute / recent small infarct in the left yost radiata. 2. Evolving subacute to chronic infarct in the right parietal lobe which was present as an acute infarct from MRI brain dated 10/10/2024. 3. Generalized cerebral volume loss and moderate chronic microvascular ischemic change. CAROTID U/S 1. stenosis noted in the right carotid system.50-69% stenosis in the right internal carotid. 2. 50-69% stenosis of the left 3. internal carotid. 4. Echogenic plaque noted Assessment/Plan IV FLUID TRANSFUSE 2 UNITS PRBC ANTIEMETIC CORRECT HYPOKALEMIA TPN FAMILY DISCUSSION CONT AGGRESSIVE MANAGEMENT CT HEAD POSITIVE OLD CVA OTHER NO MASS BUT CT WAS WITHOUT CONTRAST HOSPICE ENROLLMENT Dietary Evaluation Review Comments: 1. continue with current plan of care 2. Offer food that she can tolerate 3. continue Ensure EnLive TID (20g protein 560mg K, 350 kcal per 8 oz serving) 3. Refer and follow up with Nephrology consult and reassess her needs. Expected Outcomes/Goals: Pt will meet her daily requirement if she consumes the Ensure Enlive TID oral supplements) Improved appetite, nutriton related lab values with gradual wt gain Plan discussed with: Patient JOSE ANGEL HALE MD Jul 14, 2025 14:16
[2025-07-14] MEDS ORDERED: TPN PER PHARMACY IV NR (22:00)
[2025-07-15] VITALS (8 sets, daily range): BP systolic 98–153; BP diastolic 56–81; PULSE 68–82; RESP 14–17; TEMP 97.7–98.3; O2SAT 95–98
[2025-07-15 08:23] LABS: Hematocrit 25.3 % (36.0-46.0); Hemoglobin 8.8 g/dL (12.2-16.2); Mean Corpuscular Hemoglobin 33.2 pg (28.0-32.0); Mean Corpuscular Volume 95.1 fL (80.0-100.0)
[2025-07-15 08:37] LABS: Alanine Aminotransferase 33 U/L (7-40); Albumin 3.0 g/dL (3.2-4.8); Alkaline Phosphatase 251 U/L (46-116); Anion Gap 10 (5-15); BUN/Creatinine Ratio 26.2 (10.0-20.0); Blood Urea Nitrogen 32 mg/dL (9-23); Calcium 9.1 mg/dL (8.7-10.4); Carbon Dioxide 24 mmol/L (20-31); Chloride 105 mmol/L (98-107); Glucose 76 mg/dL (74-106); Magnesium 2.2 mg/dL (1.6-2.6); Potassium 4.0 mmol/L (3.5-5.1); Sodium 139 mmol/L (136-145); Total Protein 5.9 g/dL (5.7-8.2)
[2025-07-15 08:38] LABS: Bilirubin, Total 0.7 mg/dL (0.2-1.0)
--- NOTE | 2025-07-15 10:18 | DVHPN2 ---
Progress Note - Dictate Date Seen: Jul 15, 2025 Medical Necessity Reason Pt with a Central, PICC or Fol: No Subjective PT WITH NAUSEA/ VOMITING SEVERE VOLUME DEPLETION HYPOKALEMIA HEMOPTYSIS ANEMIA CVA PANCREATIC CA S/P STENT ANEMIA GALLSTONES CAROTID STENOSIS HX OF CVA LUNG MASS S/P BOPSY RA CAROTID STENOSIS MRI 1. Acute / recent small infarct in the left yost radiata. 2. Evolving subacute to chronic infarct in the right parietal lobe which was present as an acute infarct from MRI brain dated 10/10/2024. 3. Generalized cerebral volume loss and moderate chronic microvascular ischemic change. CAROTID U/S 1. stenosis noted in the right carotid system.50-69% stenosis in the right internal carotid. 2. 50-69% stenosis of the left 3. internal carotid. 4. Echogenic plaque noted vital signs Vital Sign Date Time Temp Pulse Resp B/P (MAP) Pulse Ox O2 Delivery O2 Flow Rate FiO2 07/15/25 09:45 153/72 07/15/25 09:44 71 07/15/25 08:30 97.7 17 98 97.7 07/14/25 20:20 Room Air* 0 21 Total Intake and Output 07/14/25 07/14/25 07/15/25 15:00 23:00 07:00 Intake Total 0 ml Balance 0 ml medications Current Medications Medications Dose Ordered Sig/Keven Route Start Time Stop Time Status Last Admin Dose Admin Ondansetron HCl 4 mg Q4HP PRN IV 07/07/25 13:30 07/08/25 05:11 4 MG Docusate Sodium 100 mg BIDPRN PRN PO 07/07/25 13:30 07/10/25 21:47 100 MG Acetaminophen 650 mg Q6HP PRN PO 07/07/25 13:30 07/13/25 16:03 650 MG Morphine Sulfate 2 mg Q4HPRN PRN IV 07/07/25 13:30 07/08/25 05:08 2 MG Nitroglycerin 0.4 mg Q5MINP PRN SL 07/07/25 13:30 Morphine Sulfate 2 mg Q30M PRN IV 07/07/25 13:30 Enteral Nutritional Formula 240 ml TIDWM PO 07/07/25 18:00 07/15/25 08:38 240 ML Metoprolol Succinate 50 mg DAILY PO 07/08/25 10:00 07/15/25 09:44 50 MG Folic Acid 1 mg DAILY PO 07/08/25 10:00 07/15/25 09:44 1 MG Potassium Chloride 20 meq DAILY PO 07/08/25 10:00 07/15/25 09:44 20 MEQ Potassium Chloride 100 ml @ 50 mls/hr Q2H IV 07/08/25 13:15 07/08/25 19:14 UNV Clonidine HCl 0.1 mg BID PO 07/09/25 22:00 07/15/25 09:45 0.1 MG Hydroxychloroquine Sulfate 200 mg DAILY PO 07/10/25 10:00 07/15/25 09:43 200 MG Diagnostic Test (Pha) 1 strip Q6HR 07/09/25 18:00 07/15/25 05:33 1 STRIP Insulin Human Regular FOLLOW SLIDING SCALE Q6HR SC 07/09/25 18:00 07/14/25 12:08 4 UNITS Dextrose 50 ml UD IV 07/09/25 14:45 Hydromorphone HCl 2 mg Q4HP PRN PO 07/10/25 11:15 Hydralazine HCl 10 mg Q6HP PRN IV 07/13/25 12:45 07/13/25 14:30 10 MG Fat Emulsion Intravenous 150 ml/Sodium Acetate 30 meq/Potassium Acetate 40 meq/ Magnesium Sulfate 4 meq/ Multivitamins 10 ml/Chromium/ Copper/Manganese/ Zinc 1 ml/Amino Acids/Dextrose/ Purified Water 1,247 ml @ 52 mls/hr [id number] IV 07/14/25 22:00 07/14/25 22:00 Cancel laboratory and microbiology Laboratory Tests 07/15/25 07:10 Test 07/15/25 07:10 Range/Units Serum Glucose 76 74-106 mg/dL Problem List AUSEA/ VOMITING SEVERE VOLUME DEPLETION HYPOKALEMIA HEMOPTYSIS ANEMIA CVA PANCREATIC CA S/P STENT ANEMIA GALLSTONES CAROTID STENOSIS HX OF CVA LUNG MASS S/P BOPSY RA CAROTID STENOSIS MRI 1. Acute / recent small infarct in the left yost radiata. 2. Evolving subacute to chronic infarct in the right parietal lobe which was present as an acute infarct from MRI brain dated 10/10/2024. 3. Generalized cerebral volume loss and moderate chronic microvascular ischemic change. CAROTID U/S 1. stenosis noted in the right carotid system.50-69% stenosis in the right internal carotid. 2. 50-69% stenosis of the left 3. internal carotid. 4. Echogenic plaque noted Assessment/Plan IV FLUID TRANSFUSE 2 UNITS PRBC ANTIEMETIC CORRECT HYPOKALEMIA TPN FAMILY DISCUSSION CONT AGGRESSIVE MANAGEMENT CT HEAD POSITIVE OLD CVA OTHER NO MASS BUT CT WAS WITHOUT CONTRAST DISCUSSED ON [facility] ONCOLOGIST TUMOR RESPONDING LESS THAN 50% OF PREVIOUS SIZE CT OF ABD PELVIS WITH CONTRAST PREP WITH SOLUMEDROL/ BENADRYL FOR IODINE ALLERGY Dietary Evaluation Review Comments: 1. continue with current plan of care 2. Offer food that she can tolerate 3. continue Ensure EnLive TID (20g protein 560mg K, 350 kcal per 8 oz serving) 3. Refer and follow up with Nephrology consult and reassess her needs. Expected Outcomes/Goals: Pt will meet her daily requirement if she consumes the Ensure Enlive TID oral supplements) Improved appetite, nutriton related lab values with gradual wt gain Plan discussed with: Patient, Spouse, Son Critical Care Time(min): 35 JOSE ANGEL HALE MD Jul 15, 2025 10:17
[2025-07-15 11:22] LABS: Total Cells Counted 100.0 (100)
--- NOTE | 2025-07-15 11:46 | DVHPN2 ---
Progress Note Date Seen: Jul 15, 2025 Medical Necessity Reason Pt with a Central, PICC or Fol: No Subjective Patient reports: No new complaints Review of Systems: HEENT:Normal, CVS:Normal, RESPIRATORY:Normal, GI:Normal, :Normal, MSK:Normal, NEURO:Normal Objective vital signs Vital Sign Date Time Temp Pulse Resp B/P (MAP) Pulse Ox O2 Delivery O2 Flow Rate FiO2 07/15/25 09:45 153/72 07/15/25 09:44 71 07/15/25 08:30 97.7 17 98 97.7 07/14/25 20:20 Room Air* 0 21 Total Intake and Output 07/14/25 07/14/25 07/15/25 15:00 23:00 07:00 Intake Total 0 ml Balance 0 ml medications Current Medications Medications Dose Ordered Sig/Keven Route Start Time Stop Time Status Last Admin Dose Admin Ondansetron HCl 4 mg Q4HP PRN IV 07/07/25 13:30 07/08/25 05:11 4 MG Docusate Sodium 100 mg BIDPRN PRN PO 07/07/25 13:30 07/10/25 21:47 100 MG Acetaminophen 650 mg Q6HP PRN PO 07/07/25 13:30 07/13/25 16:03 650 MG Morphine Sulfate 2 mg Q4HPRN PRN IV 07/07/25 13:30 07/08/25 05:08 2 MG Nitroglycerin 0.4 mg Q5MINP PRN SL 07/07/25 13:30 Morphine Sulfate 2 mg Q30M PRN IV 07/07/25 13:30 Enteral Nutritional Formula 240 ml TIDWM PO 07/07/25 18:00 07/15/25 08:38 240 ML Metoprolol Succinate 50 mg DAILY PO 07/08/25 10:00 07/15/25 09:44 50 MG Folic Acid 1 mg DAILY PO 07/08/25 10:00 07/15/25 09:44 1 MG Potassium Chloride 20 meq DAILY PO 07/08/25 10:00 07/15/25 09:44 20 MEQ Potassium Chloride 100 ml @ 50 mls/hr Q2H IV 07/08/25 13:15 07/08/25 19:14 UNV Clonidine HCl 0.1 mg BID PO 07/09/25 22:00 07/15/25 09:45 0.1 MG Hydroxychloroquine Sulfate 200 mg DAILY PO 07/10/25 10:00 07/15/25 09:43 200 MG Diagnostic Test (Pha) 1 strip Q6HR 07/09/25 18:00 07/15/25 05:33 1 STRIP Insulin Human Regular FOLLOW SLIDING SCALE Q6HR SC 07/09/25 18:00 07/14/25 12:08 4 UNITS Dextrose 50 ml UD IV 07/09/25 14:45 Hydromorphone HCl 2 mg Q4HP PRN PO 07/10/25 11:15 Hydralazine HCl 10 mg Q6HP PRN IV 07/13/25 12:45 07/13/25 14:30 10 MG Fat Emulsion Intravenous 150 ml/Sodium Acetate 30 meq/Potassium Acetate 40 meq/ Magnesium Sulfate 4 meq/ Multivitamins 10 ml/Chromium/ Copper/Manganese/ Zinc 1 ml/Amino Acids/Dextrose/ Purified Water 1,247 ml @ 52 mls/hr [id number] IV 07/14/25 22:00 07/14/25 22:00 Cancel Examination: GENERAL:Normal, HEENT:Normal, NECK:Normal, LUNGS:Normal, CVS:Normal, ABDOMEN:Normal, MSK:Normal, SKIN:Normal, NEURO:Normal, :Normal laboratory and microbiology Laboratory Tests 07/15/25 07:10 Test 07/15/25 07:10 Range/Units Serum Glucose 76 74-106 mg/dL Problem List/Assessment/Plan Problem List/Assessment/Plan * s/p chemo- nausea/vomiting * anemia/thrombocytopenia/pancytopenia: plavix, transfuse * s/p CVA. * Left internal carotid artery stenosis, status post angioplasty and stent. * Pancreatic cancer with metastases: ct chest * Hypertension. * Diabetes mellitus: ssi * Pancreatic insufficiency. * Lupus. * Coronary artery disease with stent. * History of gallstones. 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 continue with current plan of care 2. Offer food that she can tolerate 3. continue Ensure EnLive TID (20g protein 560mg K, 350 kcal per 8 oz serving) 3. Refer and follow up with Nephrology consult and reassess her needs. Expected Outcomes/Goals: Pt will meet her daily requirement if she consumes the Ensure Enlive TID oral supplements) Improved appetite, nutriton related lab values with gradual wt gain Date of Service: Jul 15, 2025 Billing Provider: ELÍAS CYR MD Common Visit Codes: [id number] INP/OBS CARE(HIGH) ELÍAS CYR MD Jul 15, 2025 11:46
[2025-07-15] MEDS: diphenhdrAMINE HCL 50 MG/1 ML VL IV ONE (12:18)
[2025-07-15] MEDS: methylPREDNISolone SOD SUCC 125 MG/2 ML VL IV ONE (12:18)
[2025-07-15] MEDS: SODIUM CHLORIDE 0.9% 1,000 ML IV SCH (12:24)
--- NOTE | 2025-07-15 15:27 | DVH ---
Procedure: CT CHEST WITH CONTRAST Reason for study/Clinical History: pancreatic cancer with mets Comparison Study: CT CHEST ABDOMEN PELVIS WO CONTRAST on DOS: 05/27/25, CT CHEST PELVIS W CONTRAST ABD OMEN W WO CONTRAST on DOS: 03/21/25, CT CT ANGIO CHEST CONTRAST on DOS: 12/08/24, CHEST TWO VIEWS ROUTIN E on DOS: 09/04/19 Exam Date: 07/15/2025 01:49 PM Radiation Dose Information: CT Dose: CTDI volume is 9.58 mGy. Dose-length product is 377.21 mGy*cm TECHNIQUE: After the uneventful administration of intravenous contrast intravenously, CT imaging was performed through the chest. Coronal and sagittal reformations were performed by the technologist. FINDINGS: Lower Neck: Visualized portions of the thyroid gland are unremarkable. Aorta and Vasculature: Vascular calcifications of the aorta. Lymph Nodes: No enlarged intrathoracic lymph nodes. Mediastinum: Cardiomegaly. There is no pericardial effusion. The esophagus is unremarkable. Lungs: Trace left pleural effusion. Increased masslike consolidation in the bilateral lower lobes. Op acity in the right lung base measures 3.3 cm, previously measured approximately 1.5 cm. Musculoskeletal: No acute osseous abnormality. Upper abdomen: Atrophic changes of the pancreas. Small volume pneumobilia. Small volume pericholecyst ic fluid and cholelithiasis. Trace perihepatic ascites. Common bile duct stent in-situ. Right PICC in satisfactory position. IMPRESSION: Increased masslike consolidative opacities in the bilateral lower lobes. Differential considerations could include infection or increased metastatic disease. Trace left pleural effusion. Cholelithiasis and pericholecystic fluid. Trace perihepatic ascites. Atrophic changes of the pancreas. Common bile duct stent in-situ.
[2025-07-15] MEDS: IOHEXOL 300 MG/ML 100ML BOTTLE IJ ONE (17:02)
[2025-07-16] VITALS (8 sets, daily range): BP systolic 119–155; BP diastolic 65–86; PULSE 65–97; RESP 14–18; TEMP 97.6–98.2; O2SAT 97–99
[2025-07-16 08:17] LABS: Hematocrit 24.8 % (36.0-46.0); Hemoglobin 8.6 g/dL (12.2-16.2); Mean Corpuscular Hemoglobin 33.2 pg (28.0-32.0); Mean Corpuscular Volume 95.7 fL (80.0-100.0); Nucleated Red Blood Cells % 0.0 %
[2025-07-16 08:26] LABS: Chloride 107 mmol/L (98-107); Potassium 4.4 mmol/L (3.5-5.1); Sodium 137 mmol/L (136-145)
[2025-07-16 08:27] LABS: Anion Gap 10 (5-15); Carbon Dioxide 20 mmol/L (20-31)
[2025-07-16 08:28] LABS: Calcium 8.7 mg/dL (8.7-10.4)
[2025-07-16 08:33] LABS: BUN/Creatinine Ratio 23.0 (10.0-20.0)
[2025-07-16 08:36] LABS: Blood Urea Nitrogen 32 mg/dL (9-23); Glucose 132 mg/dL (74-106)
[2025-07-16] MEDS: CLOPIDOGREL BISULFATE 75 MG TAB PO SCH (09:07)
--- NOTE | 2025-07-16 11:52 | DVHPN2 ---
Progress Note Date Seen: Jul 16, 2025 Medical Necessity Reason Pt with a Central, PICC or Fol: No Subjective Patient reports: No new complaints Review of Systems: HEENT:Normal, CVS:Normal, RESPIRATORY:Normal, GI:Normal, :Normal, MSK:Normal, NEURO:Normal Objective vital signs Vital Sign Date Time Temp Pulse Resp B/P (MAP) Pulse Ox O2 Delivery O2 Flow Rate FiO2 07/16/25 09:07 155/86 07/16/25 09:06 69 07/16/25 08:30 98.2 17 98 98.2 07/16/25 08:00 Room Air* 0 21 Total Intake and Output 07/15/25 07/15/25 07/16/25 15:00 23:00 07:00 Intake Total 420 ml 1620 ml Balance 420 ml 1620 ml medications Current Medications Medications Dose Ordered Sig/Keven Route Start Time Stop Time Status Last Admin Dose Admin Ondansetron HCl 4 mg Q4HP PRN IV 07/07/25 13:30 07/08/25 05:11 4 MG Docusate Sodium 100 mg BIDPRN PRN PO 07/07/25 13:30 07/15/25 21:26 100 MG Acetaminophen 650 mg Q6HP PRN PO 07/07/25 13:30 07/13/25 16:03 650 MG Morphine Sulfate 2 mg Q4HPRN PRN IV 07/07/25 13:30 07/08/25 05:08 2 MG Nitroglycerin 0.4 mg Q5MINP PRN SL 07/07/25 13:30 Morphine Sulfate 2 mg Q30M PRN IV 07/07/25 13:30 Enteral Nutritional Formula 240 ml TIDWM PO 07/07/25 18:00 07/16/25 08:29 240 ML Metoprolol Succinate 50 mg DAILY PO 07/08/25 10:00 07/16/25 09:06 50 MG Folic Acid 1 mg DAILY PO 07/08/25 10:00 07/16/25 09:07 1 MG Potassium Chloride 20 meq DAILY PO 07/08/25 10:00 07/16/25 09:07 20 MEQ Potassium Chloride 100 ml @ 50 mls/hr Q2H IV 07/08/25 13:15 07/08/25 19:14 UNV Clonidine HCl 0.1 mg BID PO 07/09/25 22:00 07/16/25 09:07 0.1 MG Hydroxychloroquine Sulfate 200 mg DAILY PO 07/10/25 10:00 07/16/25 09:07 200 MG Hydromorphone HCl 2 mg Q4HP PRN PO 07/10/25 11:15 Hydralazine HCl 10 mg Q6HP PRN IV 07/13/25 12:45 07/13/25 14:30 10 MG Fat Emulsion Intravenous 150 ml/Sodium Acetate 30 meq/Potassium Acetate 40 meq/ Magnesium Sulfate 4 meq/ Multivitamins 10 ml/Chromium/ Copper/Manganese/ Zinc 1 ml/Amino Acids/Dextrose/ Purified Water 1,247 ml @ 52 mls/hr [id number] IV 07/14/25 22:00 07/14/25 22:00 Cancel Sodium Chloride 1,000 ml @ 75 mls/hr [id number] IV 07/15/25 11:45 07/16/25 06:10 75 MLS/HR Clopidogrel Bisulfate 75 mg DAILY PO 07/16/25 10:00 07/16/25 09:07 75 MG Examination: GENERAL:Normal, HEENT:Normal, NECK:Normal, LUNGS:Normal, CVS:Normal, ABDOMEN:Normal, MSK:Normal, SKIN:Normal, NEURO:Normal, :Normal laboratory and microbiology Laboratory Tests 07/16/25 07:33 Test 07/16/25 07:33 Range/Units Serum Glucose 132 H 74-106 mg/dL Problem List/Assessment/Plan Problem List/Assessment/Plan * s/p chemo- nausea/vomiting * anemia/thrombocytopenia/pancytopenia: plavix, transfuse * s/p CVA. * Left internal carotid artery stenosis, status post angioplasty and stent. * Pancreatic cancer with metastases: ct chest - dw dr Howard * Hypertension. * Diabetes mellitus: ssi * Pancreatic insufficiency. * Lupus. * Coronary artery disease with stent. * History of gallstones. * mod protein malnutrition: dc tpn * acute renal failure ?vasomotor nephropathy: ivf + hypokalemia; replace advance care planning- full code- time spent 19 mins long dw and daughter about poor prognosis and consideration for hospice Plan discussed with: Patient, Spouse Dietary Evaluation Review Comments: 1. continue with current plan of care 2. Offer food that she can tolerate 3. continue Ensure EnLive TID (20g protein 560mg K, 350 kcal per 8 oz serving) 3. Refer and follow up with Nephrology consult and reassess her needs. Expected Outcomes/Goals: Pt will meet her daily requirement if she consumes the Ensure Enlive TID oral supplements) Improved appetite, nutriton related lab values with gradual wt gain Date of Service: Jul 16, 2025 Billing Provider: ELÍAS CYR MD Common Visit Codes: [id number] INP/OBS CARE(HIGH) ELÍAS CYR MD Jul 16, 2025 11:52
[2025-07-16] MEDS ORDERED: ONDANSETRON ODT 4 MG TAB PO PRN (12:00)
--- NOTE | 2025-07-16 16:23 | DVHPN2 ---
Progress Note - Dictate Date Seen: Jul 16, 2025 Medical Necessity Reason Pt with a Central, PICC or Fol: No Subjective PT WITH NAUSEA/ VOMITING SEVERE VOLUME DEPLETION HYPOKALEMIA HEMOPTYSIS ANEMIA CVA PANCREATIC CA S/P STENT ANEMIA GALLSTONES CAROTID STENOSIS HX OF CVA LUNG MASS S/P BOPSY RA CAROTID STENOSIS MRI 1. Acute / recent small infarct in the left yost radiata. 2. Evolving subacute to chronic infarct in the right parietal lobe which was present as an acute infarct from MRI brain dated 10/10/2024. 3. Generalized cerebral volume loss and moderate chronic microvascular ischemic change. CAROTID U/S 1. stenosis noted in the right carotid system.50-69% stenosis in the right internal carotid. 2. 50-69% stenosis of the left 3. internal carotid. 4. Echogenic plaque noted vital signs Vital Sign Date Time Temp Pulse Resp B/P (MAP) Pulse Ox O2 Delivery O2 Flow Rate FiO2 07/16/25 13:00 98.0 73 17 146/83 (104) 98 98.0 07/16/25 08:00 Room Air* 0 21 Total Intake and Output 07/15/25 07/15/25 07/16/25 15:00 23:00 07:00 Intake Total 420 ml 1620 ml Balance 420 ml 1620 ml medications Current Medications Medications Dose Ordered Sig/Keven Route Start Time Stop Time Status Last Admin Dose Admin Docusate Sodium 100 mg BIDPRN PRN PO 07/07/25 13:30 07/15/25 21:26 100 MG Acetaminophen 650 mg Q6HP PRN PO 07/07/25 13:30 07/13/25 16:03 650 MG Morphine Sulfate 2 mg Q4HPRN PRN IV 07/07/25 13:30 07/08/25 05:08 2 MG Nitroglycerin 0.4 mg Q5MINP PRN SL 07/07/25 13:30 Morphine Sulfate 2 mg Q30M PRN IV 07/07/25 13:30 Enteral Nutritional Formula 240 ml TIDWM PO 07/07/25 18:00 07/16/25 12:00 240 ML Metoprolol Succinate 50 mg DAILY PO 07/08/25 10:00 07/16/25 09:06 50 MG Folic Acid 1 mg DAILY PO 07/08/25 10:00 07/16/25 09:07 1 MG Potassium Chloride 100 ml @ 50 mls/hr Q2H IV 07/08/25 13:15 07/08/25 19:14 UNV Clonidine HCl 0.1 mg BID PO 07/09/25 22:00 07/16/25 09:07 0.1 MG Hydroxychloroquine Sulfate 200 mg DAILY PO 07/10/25 10:00 07/16/25 09:07 200 MG Hydralazine HCl 10 mg Q6HP PRN IV 07/13/25 12:45 07/13/25 14:30 10 MG Fat Emulsion Intravenous 150 ml/Sodium Acetate 30 meq/Potassium Acetate 40 meq/ Magnesium Sulfate 4 meq/ Multivitamins 10 ml/Chromium/ Copper/Manganese/ Zinc 1 ml/Amino Acids/Dextrose/ Purified Water 1,247 ml @ 52 mls/hr [id number] IV 07/14/25 22:00 07/14/25 22:00 Cancel Sodium Chloride 1,000 ml @ 75 mls/hr [id number] IV 07/15/25 11:45 07/16/25 06:10 75 MLS/HR Clopidogrel Bisulfate 75 mg DAILY PO 07/16/25 10:00 07/16/25 09:07 75 MG Hydromorphone HCl 1 mg Q4HP PRN PO 07/16/25 12:00 Ondansetron HCl 4 mg Q6HP PRN PO 07/16/25 12:00 laboratory and microbiology Laboratory Tests 07/16/25 07:33 Test 07/16/25 07:33 Range/Units Serum Glucose 132 H 74-106 mg/dL Problem List AUSEA/ VOMITING SEVERE VOLUME DEPLETION HYPOKALEMIA HEMOPTYSIS ANEMIA CVA PANCREATIC CA S/P STENT ANEMIA GALLSTONES CAROTID STENOSIS HX OF CVA LUNG MASS S/P BOPSY RA CAROTID STENOSIS MRI 1. Acute / recent small infarct in the left yost radiata. 2. Evolving subacute to chronic infarct in the right parietal lobe which was present as an acute infarct from MRI brain dated 10/10/2024. 3. Generalized cerebral volume loss and moderate chronic microvascular ischemic change. CAROTID U/S 1. stenosis noted in the right carotid system.50-69% stenosis in the right internal carotid. 2. 50-69% stenosis of the left 3. internal carotid. 4. Echogenic plaque noted Assessment/Plan IV FLUID TRANSFUSE 2 UNITS PRBC ANTIEMETIC CORRECT HYPOKALEMIA TPN FAMILY DISCUSSION CONT AGGRESSIVE MANAGEMENT CT HEAD POSITIVE OLD CVA OTHER NO MASS BUT CT WAS WITHOUT CONTRAST DISCUSSED ON [facility] ONCOLOGIST TUMOR RESPONDING LESS THAN 50% OF PREVIOUS SIZE CT OF ABD PELVIS WITH CONTRAST PREP WITH SOLUMEDROL/ BENADRYL FOR IODINE ALLERGY Dietary Evaluation Review Comments: 1. continue with current plan of care 2. Offer food that she can tolerate 3. continue Ensure EnLive TID (20g protein 560mg K, 350 kcal per 8 oz serving) 3. Refer and follow up with Nephrology consult and reassess her needs. Expected Outcomes/Goals: Pt will meet her daily requirement if she consumes the Ensure Enlive TID oral supplements) Improved appetite, nutriton related lab values with gradual wt gain Plan discussed with: Patient JOSE ANGEL HALE MD Jul 16, 2025 16:23
--- NOTE | 2025-07-16 23:53 | DVH ---
RIGHT Upper Extremity Venous Duplex Clinical History: r/o dvt Comparison: None Technique: Duplex Doppler evaluation of the venous system of the RIGHT lower neck and upper extremity including color Doppler and spectral/pulsed waveform analysis was performed. Findings: The internal jugular vein demonstrates appropriate compressibility and waveform variability. The subclavian vein is patent on color Doppler evaluation without intraluminal thrombus and demonstra christy waveform variability. The visualized portion of the brachiocephalic vein is patent on color Doppler evaluation without intr aluminal thrombus and demonstrates waveform variability. The axillary vein demonstrates appropriate compressibility and waveform variability. The brachial veins demonstrate appropriate compressibility and patency on Doppler evaluation. The basilic vein was not adequately visualized secondary to overlying dressing and patient immobility . The cephalic vein demonstrates appropriate compressibility and patency on Doppler evaluation. Impression: 1. No venous thrombus identified in the RIGHT upper extremity vessels evaluated above. Basilic vein n ot visualized.
[2025-07-17] VITALS (8 sets, daily range): BP systolic 118–152; BP diastolic 64–84; PULSE 62–70; RESP 14–22; TEMP 97.1–98.4; O2SAT 97–98
[2025-07-17 08:05] LABS: Potassium 4.1 mmol/L (3.5-5.1); Sodium 139 mmol/L (136-145)
[2025-07-17 08:07] LABS: Anion Gap 12 (5-15); Calcium 8.6 mg/dL (8.7-10.4); Carbon Dioxide 18 mmol/L (20-31); Chloride 109 mmol/L (98-107)
[2025-07-17 08:12] LABS: BUN/Creatinine Ratio 18.7 (10.0-20.0); Glucose 77 mg/dL (74-106)
[2025-07-17 08:13] LABS: Blood Urea Nitrogen 25 mg/dL (9-23)
--- NOTE | 2025-07-17 15:57 | DVHPN2 ---
Progress Note Date Seen: Jul 17, 2025 Medical Necessity Reason Pt with a Central, PICC or Fol: No Subjective Patient reports: No new complaints Review of Systems: HEENT:Normal, CVS:Normal, RESPIRATORY:Normal, GI:Normal, :Normal, MSK:Normal, NEURO:Normal Objective vital signs Vital Sign Date Time Temp Pulse Resp B/P (MAP) Pulse Ox O2 Delivery O2 Flow Rate FiO2 07/17/25 13:00 97.4 70 20 147/81 (103) 97 97.4 07/17/25 08:00 Room Air* 0 21 Total Intake and Output 07/16/25 07/16/25 07/17/25 15:00 23:00 07:00 Intake Total 520 ml 200 ml Balance 520 ml 200 ml medications Current Medications Medications Dose Ordered Sig/Keven Route Start Time Stop Time Status Last Admin Dose Admin Docusate Sodium 100 mg BIDPRN PRN PO 07/07/25 13:30 07/16/25 22:06 100 MG Acetaminophen 650 mg Q6HP PRN PO 07/07/25 13:30 07/13/25 16:03 650 MG Nitroglycerin 0.4 mg Q5MINP PRN SL 07/07/25 13:30 Enteral Nutritional Formula 240 ml TIDWM PO 07/07/25 18:00 07/17/25 12:00 240 ML Metoprolol Succinate 50 mg DAILY PO 07/08/25 10:00 07/17/25 10:07 50 MG Folic Acid 1 mg DAILY PO 07/08/25 10:00 07/17/25 10:06 1 MG Potassium Chloride 100 ml @ 50 mls/hr Q2H IV 07/08/25 13:15 07/08/25 19:14 UNV Clonidine HCl 0.1 mg BID PO 07/09/25 22:00 07/17/25 10:07 0.1 MG Hydroxychloroquine Sulfate 200 mg DAILY PO 07/10/25 10:00 07/17/25 10:06 200 MG Hydralazine HCl 10 mg Q6HP PRN IV 07/13/25 12:45 07/13/25 14:30 10 MG Fat Emulsion Intravenous 150 ml/Sodium Acetate 30 meq/Potassium Acetate 40 meq/ Magnesium Sulfate 4 meq/ Multivitamins 10 ml/Chromium/ Copper/Manganese/ Zinc 1 ml/Amino Acids/Dextrose/ Purified Water 1,247 ml @ 52 mls/hr [id number] IV 07/14/25 22:00 07/14/25 22:00 Cancel Sodium Chloride 1,000 ml @ 75 mls/hr [id number] IV 07/15/25 11:45 07/17/25 06:12 75 MLS/HR Clopidogrel Bisulfate 75 mg DAILY PO 07/16/25 10:00 07/17/25 10:06 75 MG Hydromorphone HCl 1 mg Q4HP PRN PO 07/16/25 12:00 Ondansetron HCl 4 mg Q6HP PRN PO 07/16/25 12:00 Examination: GENERAL:Normal, HEENT:Normal, NECK:Normal, LUNGS:Normal, CVS:Normal, ABDOMEN:Normal, MSK:Normal, SKIN:Normal, NEURO:Normal, :Normal laboratory and microbiology Laboratory Tests 07/17/25 07:09 07/16/25 07:33 Test 07/17/25 07:09 Range/Units Serum Glucose 77 74-106 mg/dL Problem List/Assessment/Plan Problem List/Assessment/Plan * s/p chemo- nausea/vomiting * anemia/thrombocytopenia/pancytopenia: plavix, transfuse * s/p CVA. * Left internal carotid artery stenosis, status post angioplasty and stent. * Pancreatic cancer with metastases: ct chest - dw dr Howard * Hypertension. * Diabetes mellitus: ssi * Pancreatic insufficiency. * Lupus. * Coronary artery disease with stent. * History of gallstones. * mod protein malnutrition: dc tpn * acute renal failure ?vasomotor nephropathy: ivf + hypokalemia; replace advance care planning- full code- time spent 19 mins long dw and daughter about poor prognosis and consideration for hospice Plan discussed with: Patient My Orders My Orders Orders - ELÍAS CYR MD Procedure Category Date Status Time Mechanical Soft Diet DIET 07/17/25 Transmitted Breakfast Cover Wound With Foam DANIELITO 07/17/25 In Process Dressing 13:00 Dietary Evaluation Review Comments: 1. continue with current plan of care 2. Offer food that she can tolerate 3. continue Ensure EnLive TID (20g protein 560mg K, 350 kcal per 8 oz serving) 3. Refer and follow up with Nephrology consult and reassess her needs. Expected Outcomes/Goals: Pt will meet her daily requirement if she consumes the Ensure Enlive TID oral supplements) Improved appetite, nutriton related lab values with gradual wt gain Date of Service: Jul 17, 2025 Billing Provider: ELÍAS CYR MD Common Visit Codes: [id number] INP/OBS CARE(HIGH) Secondary Visit Codes: [id number] CARE PLAN 30 MINUTES ELÍAS CYR MD Jul 17, 2025 15:57
[2025-07-17] MEDS: SODIUM BICARB 50mEq/50ml Vial 50 ML in SOD CHL 0.45% 1,000 ML IV SCH (19:18)
[2025-07-18] VITALS (7 sets, daily range): BP systolic 114–169; BP diastolic 74–87; PULSE 64–80; RESP 14–20; TEMP 36.4; O2SAT 96–99
[2025-07-18 05:53] LABS: Potassium 3.6 mmol/L (3.5-5.1); Sodium 138 mmol/L (136-145)
[2025-07-18 05:54] LABS: Anion Gap 10 (5-15); Carbon Dioxide 21 mmol/L (20-31)
[2025-07-18 05:59] LABS: BUN/Creatinine Ratio 19.4 (10.0-20.0); Glucose 75 mg/dL (74-106)
[2025-07-18 06:08] LABS: Blood Urea Nitrogen 25 mg/dL (9-23); Calcium 8.3 mg/dL (8.7-10.4); Chloride 107 mmol/L (98-107)
--- NOTE | 2025-07-18 09:18 | DVHPN2 ---
Progress Note - Dictate Date Seen: Jul 18, 2025 Medical Necessity Reason Pt with a Central, PICC or Fol: No Subjective PT WITH NAUSEA/ VOMITING SEVERE VOLUME DEPLETION HYPOKALEMIA HEMOPTYSIS ANEMIA CVA PANCREATIC CA S/P STENT ANEMIA GALLSTONES CAROTID STENOSIS HX OF CVA LUNG MASS S/P BOPSY RA CAROTID STENOSIS MRI 1. Acute / recent small infarct in the left yost radiata. 2. Evolving subacute to chronic infarct in the right parietal lobe which was present as an acute infarct from MRI brain dated 10/10/2024. 3. Generalized cerebral volume loss and moderate chronic microvascular ischemic change. CAROTID U/S 1. stenosis noted in the right carotid system.50-69% stenosis in the right internal carotid. 2. 50-69% stenosis of the left 3. internal carotid. 4. Echogenic plaque noted vital signs Vital Sign Date Time Temp Pulse Resp B/P (MAP) Pulse Ox O2 Delivery O2 Flow Rate FiO2 07/18/25 08:21 97.8 79 20 169/74 (105) 98 97.8 07/17/25 20:00 Room Air* 0 21 Total Intake and Output 07/17/25 07/17/25 07/18/25 15:00 23:00 07:00 Intake Total 580 ml 560 ml Balance 580 ml 560 ml medications Current Medications Medications Dose Ordered Sig/Keven Route Start Time Stop Time Status Last Admin Dose Admin Docusate Sodium 100 mg BIDPRN PRN PO 07/07/25 13:30 07/16/25 22:06 100 MG Acetaminophen 650 mg Q6HP PRN PO 07/07/25 13:30 07/13/25 16:03 650 MG Nitroglycerin 0.4 mg Q5MINP PRN SL 07/07/25 13:30 Enteral Nutritional Formula 240 ml TIDWM PO 07/07/25 18:00 07/18/25 08:07 240 ML Metoprolol Succinate 50 mg DAILY PO 07/08/25 10:00 07/17/25 10:07 50 MG Folic Acid 1 mg DAILY PO 07/08/25 10:00 07/17/25 10:06 1 MG Potassium Chloride 100 ml @ 50 mls/hr Q2H IV 07/08/25 13:15 07/08/25 19:14 UNV Clonidine HCl 0.1 mg BID PO 07/09/25 22:00 07/17/25 22:05 0.1 MG Hydroxychloroquine Sulfate 200 mg DAILY PO 07/10/25 10:00 07/17/25 10:06 200 MG Hydralazine HCl 10 mg Q6HP PRN IV 07/13/25 12:45 07/18/25 04:38 10 MG Fat Emulsion Intravenous 150 ml/Sodium Acetate 30 meq/Potassium Acetate 40 meq/ Magnesium Sulfate 4 meq/ Multivitamins 10 ml/Chromium/ Copper/Manganese/ Zinc 1 ml/Amino Acids/Dextrose/ Purified Water 1,247 ml @ 52 mls/hr [id number] IV 07/14/25 22:00 07/14/25 22:00 Cancel Clopidogrel Bisulfate 75 mg DAILY PO 07/16/25 10:00 07/17/25 10:06 75 MG Hydromorphone HCl 1 mg Q4HP PRN PO 07/16/25 12:00 Ondansetron HCl 4 mg Q6HP PRN PO 07/16/25 12:00 Sodium Bicarbonate 50 ml/ Sodium Chloride 1,050 ml @ 75 mls/hr Q14H IV 07/17/25 16:00 07/17/25 19:18 75 MLS/HR laboratory and microbiology Laboratory Tests 07/18/25 04:48 07/16/25 07:33 Test 07/18/25 04:48 Range/Units Serum Glucose 75 74-106 mg/dL Problem List AUSEA/ VOMITING SEVERE VOLUME DEPLETION HYPOKALEMIA HEMOPTYSIS ANEMIA CVA PANCREATIC CA S/P STENT ANEMIA GALLSTONES CAROTID STENOSIS HX OF CVA LUNG MASS S/P BOPSY RA CAROTID STENOSIS MRI 1. Acute / recent small infarct in the left yost radiata. 2. Evolving subacute to chronic infarct in the right parietal lobe which was present as an acute infarct from MRI brain dated 10/10/2024. 3. Generalized cerebral volume loss and moderate chronic microvascular ischemic change. CAROTID U/S 1. stenosis noted in the right carotid system.50-69% stenosis in the right internal carotid. 2. 50-69% stenosis of the left 3. internal carotid. 4. Echogenic plaque noted Assessment/Plan IV FLUID TRANSFUSE 2 UNITS PRBC ANTIEMETIC CORRECT HYPOKALEMIA TPN FAMILY DISCUSSION CONT AGGRESSIVE MANAGEMENT CT HEAD POSITIVE OLD CVA OTHER NO MASS BUT CT WAS WITHOUT CONTRAST DISCUSSED ON [facility] ONCOLOGIST TUMOR RESPONDING LESS THAN 50% OF PREVIOUS SIZE CT OF ABD PELVIS WITH CONTRAST PREP WITH SOLUMEDROL/ BENADRYL FOR IODINE ALLERGY DC HOME FOLLOWUP IN 1 WEEK FOLLOWUP WITH [facility] IN 1 WEEK Dietary Evaluation Review Comments: 1. continue with current plan of care 2. Offer food that she can tolerate 3. continue Ensure EnLive TID (20g protein 560mg K, 350 kcal per 8 oz serving) 3. Refer and follow up with Nephrology consult and reassess her needs. Expected Outcomes/Goals: Pt will meet her daily requirement if she consumes the Ensure Enlive TID oral supplements) Improved appetite, nutriton related lab values with gradual wt gain Plan discussed with: Patient JOSE ANGEL HALE MD Jul 18, 2025 09:18
--- NOTE | 2025-07-18 09:18 | DVHPN2 ---
Progress Note - Dictate Date Seen: Jul 17, 2025 Medical Necessity Reason Pt with a Central, PICC or Fol: No Subjective PT WITH NAUSEA/ VOMITING SEVERE VOLUME DEPLETION HYPOKALEMIA HEMOPTYSIS ANEMIA CVA PANCREATIC CA S/P STENT ANEMIA GALLSTONES CAROTID STENOSIS HX OF CVA LUNG MASS S/P BOPSY RA CAROTID STENOSIS MRI 1. Acute / recent small infarct in the left yost radiata. 2. Evolving subacute to chronic infarct in the right parietal lobe which was present as an acute infarct from MRI brain dated 10/10/2024. 3. Generalized cerebral volume loss and moderate chronic microvascular ischemic change. CAROTID U/S 1. stenosis noted in the right carotid system.50-69% stenosis in the right internal carotid. 2. 50-69% stenosis of the left 3. internal carotid. 4. Echogenic plaque noted vital signs Vital Sign Date Time Temp Pulse Resp B/P (MAP) Pulse Ox O2 Delivery O2 Flow Rate FiO2 07/18/25 08:21 97.8 79 20 169/74 (105) 98 97.8 07/17/25 20:00 Room Air* 0 21 Total Intake and Output 07/17/25 07/17/25 07/18/25 15:00 23:00 07:00 Intake Total 580 ml 560 ml Balance 580 ml 560 ml medications Current Medications Medications Dose Ordered Sig/Keven Route Start Time Stop Time Status Last Admin Dose Admin Docusate Sodium 100 mg BIDPRN PRN PO 07/07/25 13:30 07/16/25 22:06 100 MG Acetaminophen 650 mg Q6HP PRN PO 07/07/25 13:30 07/13/25 16:03 650 MG Nitroglycerin 0.4 mg Q5MINP PRN SL 07/07/25 13:30 Enteral Nutritional Formula 240 ml TIDWM PO 07/07/25 18:00 07/18/25 08:07 240 ML Metoprolol Succinate 50 mg DAILY PO 07/08/25 10:00 07/17/25 10:07 50 MG Folic Acid 1 mg DAILY PO 07/08/25 10:00 07/17/25 10:06 1 MG Potassium Chloride 100 ml @ 50 mls/hr Q2H IV 07/08/25 13:15 07/08/25 19:14 UNV Clonidine HCl 0.1 mg BID PO 07/09/25 22:00 07/17/25 22:05 0.1 MG Hydroxychloroquine Sulfate 200 mg DAILY PO 07/10/25 10:00 07/17/25 10:06 200 MG Hydralazine HCl 10 mg Q6HP PRN IV 07/13/25 12:45 07/18/25 04:38 10 MG Fat Emulsion Intravenous 150 ml/Sodium Acetate 30 meq/Potassium Acetate 40 meq/ Magnesium Sulfate 4 meq/ Multivitamins 10 ml/Chromium/ Copper/Manganese/ Zinc 1 ml/Amino Acids/Dextrose/ Purified Water 1,247 ml @ 52 mls/hr [id number] IV 07/14/25 22:00 07/14/25 22:00 Cancel Clopidogrel Bisulfate 75 mg DAILY PO 07/16/25 10:00 07/17/25 10:06 75 MG Hydromorphone HCl 1 mg Q4HP PRN PO 07/16/25 12:00 Ondansetron HCl 4 mg Q6HP PRN PO 07/16/25 12:00 Sodium Bicarbonate 50 ml/ Sodium Chloride 1,050 ml @ 75 mls/hr Q14H IV 07/17/25 16:00 07/17/25 19:18 75 MLS/HR laboratory and microbiology Laboratory Tests 07/18/25 04:48 07/16/25 07:33 Test 07/18/25 04:48 Range/Units Serum Glucose 75 74-106 mg/dL Problem List AUSEA/ VOMITING SEVERE VOLUME DEPLETION HYPOKALEMIA HEMOPTYSIS ANEMIA CVA PANCREATIC CA S/P STENT ANEMIA GALLSTONES CAROTID STENOSIS HX OF CVA LUNG MASS S/P BOPSY RA CAROTID STENOSIS MRI 1. Acute / recent small infarct in the left yost radiata. 2. Evolving subacute to chronic infarct in the right parietal lobe which was present as an acute infarct from MRI brain dated 10/10/2024. 3. Generalized cerebral volume loss and moderate chronic microvascular ischemic change. CAROTID U/S 1. stenosis noted in the right carotid system.50-69% stenosis in the right internal carotid. 2. 50-69% stenosis of the left 3. internal carotid. 4. Echogenic plaque noted Assessment/Plan IV FLUID TRANSFUSE 2 UNITS PRBC ANTIEMETIC CORRECT HYPOKALEMIA TPN FAMILY DISCUSSION CONT AGGRESSIVE MANAGEMENT CT HEAD POSITIVE OLD CVA OTHER NO MASS BUT CT WAS WITHOUT CONTRAST DISCUSSED [facility] ONCOLOGIST TUMOR RESPONDING LESS THAN 50% OF PREVIOUS SIZE CT OF ABD PELVIS WITH CONTRAST PREP WITH SOLUMEDROL/ BENADRYL FOR IODINE ALLERGY Dietary Evaluation Review Comments: 1. continue with current plan of care 2. Offer food that she can tolerate 3. continue Ensure EnLive TID (20g protein 560mg K, 350 kcal per 8 oz serving) 3. Refer and follow up with Nephrology consult and reassess her needs. Expected Outcomes/Goals: Pt will meet her daily requirement if she consumes the Ensure Enlive TID oral supplements) Improved appetite, nutriton related lab values with gradual wt gain Plan discussed with: Patient, Spouse, Daughter JOSE ANGEL HALE MD Jul 18, 2025 09:17
--- NOTE | 2025-07-18 15:09 | DVHDS2 ---
Discharge Summary Date of Admission Jul 07, 2025 at 13:19 Date of Discharge: Jul 18, 2025 Admitting Diagnosis Atrial fibrillation with rapid ventricular rate Labs/Diagnostic Data: Laboratory Results Test 07/18/25 04:48 07/16/25 07:33 07/15/25 07:10 07/15/25 05:32 Sodium Level 138 mmol/L (136-145) Potassium Level 3.6 mmol/L (3.5-5.1) Chloride Level 107 mmol/L (98-107) Carbon Dioxide Level 21 mmol/L (20-31) Anion Gap 10 (5-15) Blood Urea Nitrogen 25 mg/dL (9-23) Creatinine 1.29 mg/dL (0.550-1.02) Glomerular Filtration Rate Calc 42 mL/min (>90) BUN/Creatinine Ratio 19.4 (10.0-20.0) Serum Glucose 75 mg/dL (74-106) Calcium Level 8.3 mg/dL (8.7-10.4) White Blood Count 6.6 10^3/uL (4.4-10.8) Red Blood Count 2.59 10^6/uL (4.0-5.20) Hemoglobin 8.6 g/dL (12.2-16.2) Hematocrit 24.8 % (36.0-46.0) Mean Corpuscular Volume 95.7 fL (80.0-100.0) Mean Corpuscular Hemoglobin 33.2 pg (28.0-32.0) Mean Corpuscular Hemoglobin Concent 34.7 g/dL (32.0-36.0) Red Cell Distribution Width 20.6 % (11.8-14.3) Platelet Count 193 10^3/uL (140-450) Mean Platelet Volume 9.7 fL (6.9-10.8) Neutrophils (%) (Auto) 73.1 % (37.0-80.0) Lymphocytes (%) (Auto) 13.5 % (10.0-50.0) Monocytes (%) (Auto) 12.9 % (0.0-12.0) Eosinophils (%) (Auto) 0.0 % (0.0-7.0) Basophils (%) (Auto) 0.5 % (0.0-2.0) Neutrophils # (Auto) 4.8 10 ^3/uL (1.6-8.6) Lymphocytes # (Auto) 0.9 10 ^3/uL (0.4-5.4) Monocytes # (Auto) 0.9 10 ^3/uL (0-1.3) Eosinophils # (Auto) 0 10 ^3/uL (0-0.8) Basophils # (Auto) 0 10 ^3/uL (0-0.2) Nucleated Red Blood Cells 0.0 % Differential Total Cells Counted 100.0 (100) Neutrophils % (Manual) 75 (37.0-80.0) Band Neutrophils % (Manual) 0 Lymphocytes % (Manual) 11 (10.0-50.0) Monocytes % (Manual) 11 (0-12) Eosinophils % (Manual) 3 (0-7) Basophils % (Manual) 0 (0.0-2.0) Metamyelocytes % (manual) 0 Myelocytes % (Manual) 0 Promyelocytes % (Manual) 0 Blast Cells % (Manual) 0 Reactive Lymphocytes 0 Platelet Estimate Decreased Phosphorus Level 3.6 mg/dL (2.4-5.1) Magnesium Level 2.2 mg/dL (1.6-2.6) Total Bilirubin 0.7 mg/dL (0.2-1.0) Aspartate Amino Transferase (AST) 56 U/L (13-40) Alanine Aminotransferase (ALT) 33 U/L (7-40) Alkaline Phosphatase 251 U/L (46-116) Total Protein 5.9 g/dL (5.7-8.2) Albumin 3.0 g/dL (3.2-4.8) POC Glucose 77 mg/dl (70-106) Test 07/13/25 15:02 07/12/25 17:40 07/12/25 13:36 07/12/25 12:09 Vitamin B12 Level 579 pg/mL (211-911) Vitamin D 25-Hydroxy 95.6 ng/mL (30.0-100) Thyroid Stimulating Hormone (TSH) 1.95 uIU/mL (0.55-4.78) Test 07/09/25 06:04 07/07/25 12:16 07/07/25 10:04 07/07/25 09:10 Triglycerides Level 96 mg/dL (< 150) Troponin I High Sensitivity 30 ng/L (</=34) Urine Color Yellow (Yellow) Urine Clarity Clear (Clear) Urine pH 7.0 (5.0-9.0) Urine Specific [place] 1.008 (1.001-1.035) Urine Protein 1+ (Negative) Urine Ketones Trace (Negative) Urine Blood Trace /uL (Negative) Urine Nitrite Negative (Negative) Urine Bilirubin Negative (Negative) Urine Urobilinogen Normal mg/dL (Negative) Urine Leukocyte Esterase Trace /uL (Negative) Urine Glucose 3+ mg/dL (Normal) Prothrombin Time 14.0 sec (9.3-11.8) Prothrombin Time INR 1.36 (0.9-1.15) Activated Partial Thromboplast Time 38.6 SEC (24.5-34.5) Other Laboratory Tests 07/18/25 04:48 07/16/25 07:33 Brief Hx & Hospital Course: History of Present Illness Ruthie Martinez is an 79-year-old female with past medical history of stage 4 pancreatic cancer, coronary artery disease, CVA with right sided weakness, hypertension, anemia, and arthritis, who came to the hospital due to nausea and vomiting. Patient is currently receiving chemo therapy for her cancer with her last infusion on 07/03/2025, who state she has been experiencing nausea and vomiting the last couple of days. Family called EMS when patient began vomiting blood this morning. Course of hospitalization: Patient was found to be severely anemic, receiving PRBC transfusion. Patient had intractable nausea and vomiting for which TPN was started. Patient's symptoms improved, for which diet was advanced. Physical therapy was implemented with the patient. Long discussion was made with the patient regarding plan of care options, for which hospice was offered to the patient. After consultation was made by the patient's has been with the oncologist, decision was made to continue chemotherapy as the patient can tolerate. Patient will be discharged home and follow up with her primary oncologist at [facility] as well as following up with her PCP Dr. Howard in one week. Patient and family are agreeable with discharge plan. All questions answered. Physical examination General: Alert and Oriented x3. No acute distress. Well-nourished. Eyes: EOMI. Anicteric. HENT: Moist mucous membranes. Lungs: Clear to auscultation bilaterally. No accessory muscle use. Cardiovascular: Regular rate and rhythm. No murmur. No JVD. Abdomen: Soft, non-tender and non-distended. No palpable masses. Extremities: No edema. Non-tender. Skin: No rashes or lesions. Warm. Neurologic: No focal neurological deficits. CN II-XII grossly intact, but not individually tested. Psychiatric: Cooperative. Appropriate mood and affect. Total time spent with patient discussing and formulating plan of care: 35 minutes. This medical document was created using an electronic medical record system with [employer] dictation system. Although this document has been carefully reviewed, there may still be some phonetic and typographical errors. These areas are purely typographical due to imperfections of the software programs, and do not reflect any compromise in the patient's medical care. Condition at Discharge: Poor Final Diagnosis/Problems List Anemia Metastatic pancreatic cancer -Pancreatic Ca: chemo treatment -HTN -DM -Lupus -Carotid Stenosis -Cholelithiasis -Pancytopenia Discharge Disposition: Home Discharge Instruct/Medications Diet: Regular Activity: No Restrictions, As Tolerated Follow Up/Referral: Oncologist at [facility] at next available appointment Dr. Howard in one week Medications: Resume all previous home medications Scheduled Aspirin (Aspirin 81), 81 MG PO DAILY Cefdinir (Cefdinir), 1 CAP PO BID Cholecalciferol (Vitamin D3), 1 TAB PO DAILY, (Reported) Clonidine Hydrochloride (Clonidine Hcl), 1 TAB PO BID, (Reported) Clopidogrel Bisulfate (Plavix), 75 MG PO DAILY Ezetimibe (Zetia), 10 MG PO DAILY Folic Acid (Folic Acid), 1 TAB PO DAILY, (Reported) Hydroxychloroquine Sulfate (Hydroxychloroquine Sulfat), 1 TAB DAILY, (Reported) Ibuprofen Micronized (Motrin Tablet), 600 MG PO TID, (Reported) Magnesium Chloride (Slow-Mag), 2 TAB PO DAILY, (Reported) Megestrol Acetate (Megace), 1 TAB PO DAILY, (Reported) Metoprolol Succinate (Metoprolol Succinate Er), 1 TAB PO DAILY, (Reported) Potassium Chloride (Potassium Chloride ER), 1 TAB PO DAILY, (Reported) Senna (Senokot), 1 TAB PO BID, (Reported) Miscellaneous Medications Linseed Oil (Flax Seed Oil), 1,000 MG PO, (Reported) Pancreatic Enzymes (Pancreaze), 4,200 UNIT PO, (Reported) 36 Discharge Statement: "Patient was advised to return to the ER or call 911 if any headaches, dizziness, shortness of breath, chest pain, abdominal pain, bleeding, fevers, or worsening of medical condition. Patient was counseled about treatment plan, medications, possible side effects, patientverbalized understanding. All questions were answered to the best of my ability. This discharge took greater then 30 minutes in planning, reviewing documentation, counseling the patient, and discussing with other team members." ASSESSMENT ASSESSMENT Assessment Anemia Metastatic pancreatic cancer Date of Service: Jul 18, 2025 Billing Provider: GLENN HORVATH NP Common Visit Codes: [id number] INP/OBS CARE(HIGH) GLENN HORVATH NP Jul 18, 2025 15:09
[2025-07-19 14:07] LABS: Vitamin B1, Whole Blood 201.6 nmol/L (66.5-200.0)
== END 2025-07-18 17:47 | disposition home health service (06) | DRG 808 ==
LOC: EDBD 08:40 → EDUNIT# 08:40 → EDSEX 08:40 → ER 08:40 → OVERFLOW 13:19 → TELE-WESTW 17:45
PROVIDERS: ADMIT Nurse Practitioner Acute Care; ATTEND Nurse Practitioner Acute Care
PROC: 30233N1 Transfusion of Nonautologous Red Blood Cells into Peripheral Vein, Percutaneous Approach (ICD-10-PCS; principal; 2025-07-07)
DX: D61.810 Antineoplastic chemotherapy induced pancytopenia (principal); N17.0 Acute kidney failure with tubular necrosis; C25.9 Malignant neoplasm of pancreas, unspecified; E44.0 Moderate protein-calorie malnutrition; I69.351 Hemiplegia and hemiparesis following cerebral infarction affecting right dominant side; Z68.1 Body mass index [BMI] 19.9 or less, adult; D64.9 Anemia, unspecified; E87.6 Hypokalemia; I48.91 Unspecified atrial fibrillation; I16.0 Hypertensive urgency; I25.10 Atherosclerotic heart disease of native coronary artery without angina pectoris; D69.6 Thrombocytopenia, unspecified; E11.9 Type 2 diabetes mellitus without complications; I10 Essential (primary) hypertension; M32.9 Systemic lupus erythematosus, unspecified; M06.9 Rheumatoid arthritis, unspecified; Z91.041 Radiographic dye allergy status; Z88.1 Allergy status to other antibiotic agents; Z88.0 Allergy status to penicillin; Z79.2 Long term (current) use of antibiotics; I65.29 Occlusion and stenosis of unspecified carotid artery; R11.2 Nausea with vomiting, unspecified; T50.995A Adverse effect of other drugs, medicaments and biological substances, initial encounter
CPT/HCPCS: 36415; 36430; 70450; 70551; 71045; 71260; 80048; 80053; 81003; 82040; 82306; 82607; 82962; 83735; 84100; 84425; 84443; 84478; 84484; 85007; 85014; 85018; 85025; 85027; 85610; 85730; 86850; 86900; 86901; 86920; 93005; 93971; 97110; 97116; 97163; G0378; J1815; J2405; J3480

== ENCOUNTER 2025-07-28 09:55 | Inpatient (IN) | payer MEDICARE, BC ==
[~2025-07-28] VITALS: Ht 152.4 cm; Wt 52.3 kg
[~2025-07-28 09:55] MED LIST changes: +CLON0.1T PO; +MEGE20TA3 PO
--- NOTE | 2025-07-28 10:17 | ED.PDOC ---
GI ASSESSMENT HPI Comments 79y F who presents to the ED via EMS for chief complaint of abdominal pain. EMS states pt called due to abdominal pain for the past 2x hours. Pt states the pain is located by the RUQ, constant, non-radiating, rating the pain ""12/10" with no noted exacerbating or relieving factors. Pt has been having associated nausea and vomiting since last night PM and told EMS she has been unable to keep anything down since. EMS arrived on scene and noted pt had stable vitals and was given 50 mcg of fentanyl with Zofran and brought to the ED. Pt upon arrival to the ED, otherwise stable but has noted history of pancreatic cancer receiving chemo with last treatment 1x month prior with noted PICC line on R arm. Pt otherwise has stable vitals in the ED. Pt otherwise denies diarrhea, fever, chills, dysuria, hematuria or associated symptoms. Chief Complaint: Abdominal Pain Time Seen by MD: 10:12 Primary Care Provider: JOSE ANGEL Reviewed Notes: Spinner Continuous Notes, Medications, Allergies Allergies: Coded Allergies: Ciprofloxacin (Verified Allergy, Unknown, 02/21/18) Iodine (Verified Allergy, Unknown, 06/23/17) Penicillins (Verified Allergy, Unknown, 07/07/25) Simvastatin (Verified Allergy, Unknown, 10/10/24) BONE PAIN Sulfa Antibiotics (Verified Allergy, Unknown, 06/23/17) Home Meds Active Scripts Clopidogrel Bisulfate (Plavix) 75 Mg Tab, 75 MG PO DAILY for 30 Days, #30 TAB 3 Refills Prov:ELÍAS CYR MD 02/19/25 Cefdinir (Cefdinir) 300 Mg Cap, 1 CAP PO BID for 7 Days, #14 CAP Prov:ELÍAS CYR MD 12/11/24 Ezetimibe (Zetia) 10 Mg Tab, 10 MG PO DAILY for 30 Days, #30 TAB 3 Refills Prov:ELÍAS CYR MD 10/30/24 Aspirin (ASPIRIN 81) 81 Mg Tab, 81 MG PO DAILY for 30 Days, #30 TAB 3 Refills Prov:ELÍAS CYR MD 10/30/24 Reported Medications Megestrol Acetate (Megace) 20 Mg Tb, 1 TAB PO DAILY 07/07/25 Clonidine Hydrochloride (Clonidine Hcl) 0.1 Mg Tab, 1 TAB PO BID 07/07/25 Senna (Senokot) 8.6 Mg Tab, 1 TAB PO BID, #40 TAB 02/17/25 Pancreatic Enzymes (Pancreaze) 4,200 Unit Cap, 4200 UNIT PO, CAP 12/09/24 Hydroxychloroquine Sulfate (Hydroxychloroquine Sulfat) 200 Mg Tab, 1 TAB DAILY 10/24/24 Potassium Chloride (Potassium Chloride ER) 20 Meq Tab, 1 TAB PO DAILY 10/24/24 Folic Acid (Folic Acid) 1 Mg Tab, 1 TAB PO DAILY 10/24/24 Metoprolol Succinate (Metoprolol Succinate Er) 50 Mg Tab, 1 TAB PO DAILY 10/24/24 Magnesium Chloride (Slow-Mag) Tab, 2 TAB PO DAILY, TAB 10/08/24 Linseed Oil (Flax Seed Oil) 1,000 Mg Cap, 1000 MG PO, CAP 10/08/24 Cholecalciferol (VITAMIN D3) 2,000 Unit Tab, 1 TAB PO DAILY, #30 TAB 5 Refills 10/08/24 Ibuprofen Micronized (MOTRIN TABLET) 600 Mg Tb, 600 MG PO TID, #40 TAB *Black box warning-NSAIDS can increase risk of PA & hypertension, GI irritation, ulceration, bleed, perferation. Do not use post cardiac surgery. Use short duration/lowest effective dose. 10/08/24 Information Source: Patient Mode of Arrival: EMS Brought in by: EMS Timing: Hours Duration: Since onset Prehospital treatment: Treatment (fentanyl 50 mcg, and zofran) Quality: Aching Vomitus: Soft Stool: Normal Severity: Moderate Recent: None Recent Hx of: Other (pancreatic cancer receiving chemo) Pain Location: RUQ Modifying Factors: Nothing Associated sign and symptoms: Nausea, Vomiting, Abdominal Pain Past Medical History PAST MEDICAL HISTORY: AFIB, Anemia, Arthritis, CAD, Cancer, CVA, Gallstones, HTN Surgical History: PTCA Surgical History (Other): eye surgeru REHAB CONSULTANT History: Denies all REHAB CONSULTANT Hx Family History Family History: Reviewed,noncontributory to illness Social History Smoker: Non-Smoker Alcohol: Denies ETOH Use Drugs: Denies Drug Use Lives In: Home Constitutional: denies: chills, diaphoresis, fatigue, fever, malaise, sweats, weakness, others EENTM: denies: blurred vision, double vision, ear bleeding, ear discharge, ear drainage, ear pain, ear ringing, eye pain, eye redness, hearing loss, mouth pain, mouth swelling, nasal discharge, nose bleeding, nose congestion, nose pain, photophobia, tearing, throat pain, throat swelling, voice changes, others Respiratory: denies: cough, hemoptysis, orthopnea, SOB at rest, shortness of breath, SOB with excertion, stridor, wheezing, others Cardiovascular: denies: chest pain, dizzy spells, diaphoresis, Dyspnea on exertion, edema, irregular heart beat, left arm pain, lightheadedness, palpitations, PND, syncope, others Gastrointestinal: reports: abdominal pain, nausea, vomiting; denies: abdomen distended, blood streaked bowels, constipated, diarrhea, dysphagia, difficulty swallowing, hematemesis, melena, poor appetite, poor fluid intake, rectal bleeding, rectal pain, others Genitourinary: denies: abnormal vagina bleeding, burning, dyspareunia, dysuria, flank pain, frequency, hematuria, incontinence, pain, , vagina di scharge, urgency, others Neurological: denies: dizziness, fainting, headache, left sided numbness, left sided weakness, numbness, paresthesia, pre-existing deficit, right sided numbness, right sided weakness, seizure, speech problems, tingling, tremors, weakness, others Musculoskeletal: denies: back pain, gout, joint pain, joint swelling, muscle pain, muscle stiffness, neck pain, others Integumetry: denies: bruises, change in color, change in hair/nails, dryness, laceration, lesions, lumps, rash, wounds, others Allergic/Immunocompromised: denies: Difficulty Healing, Frequent Infections, Hives, Itching, others Hematologic/Lymphatic: denies: anemia, blood clots, easy bleeding, easy bruising, swollen glands, others Endocrine: denies: excessive hunger, excessive sweating, excessive thirst, excessive urination, flushing, intolerance to cold, intolerance to heat, unexplained weight gain, unexplained weight loss, others Psychiatric: denies: anxiety, bipolar disorder, depression, hopeless, panic disorder, schizophrenia, sleepless, suicidal, others All Other Systems: Reviewed and Negative Physical Exam General Appearance: Moderate Distress HEENT: Pale Conjuntivae (L), Pale Conjuntivae (R), Pharynx Normal, TMs Normal Neck: Full Range of Motion, Non-Tender, Normal, Normal Inspection Respiratory: Chest Non-Tender, Lungs Clear, No Accessory Muscle Use, No Respiratory Distress, Normal Breath Sounds Cardiovascular: No Edema, No JVD, No Murmur, No Gallop, Normal Peripheral Pulses, Regular Rate/Rhythm Breast Exam: Deferred Gastrointestinal: Abnormal Bowel Sounds, Distended, Hepatomegaly, Soft Genitalia: Deferred Pelvic: Deferred Rectal: Deferred Extremities: No calf tenderness, Normal capillary refill, Normal inspection, Normal range of motion, Non-tender, No pedal edema Musculoskeletal : Apperance: Normal Neurologic: Alert, joint yarner II-XII nml as Tested, Motor Weakness, Normal Affect, Normal Mood, No Sensory Deficits Cerebellar Function: Normal Reflexes: Normal Skin: Dry, Normal Color, Warm Lymphatic: No Adenopathy EKG EKG : Pulse Rate (adult): 99 [place]: LAD Cardiac Rhythm: NSR Block: None Hypertrophy: LAE ST: Normal Was a procedure done? Was a procedure done?: No GI differential Dx Differential Diagnosis: Cholangitis, Cholecystitis, Constipation, Esophagitis, Gastritis/PUD, Gastroenteritis, Pancreatitis, UTI, Dehydration, Electrolyte Imbalance, Kidney Stone Other Differential Diagnosis chemotherapy induced nasuea and vomiting X-Ray, Labs, Meds, VS Vital Signs Date Time Temp Pulse Resp B/P (MAP) Pulse Ox O2 Delivery O2 Flow Rate FiO2 07/28/25 12:00 96 07/28/25 11:17 87 16 163/85 (111) 100 07/28/25 10:20 Nasal Cannula* 2 28 07/28/25 10:17 99 07/28/25 10:02 98.2 103 18 127/80 97 98.2 07/28/25 10:00 99 Lab Test 07/28/25 11:10 07/28/25 10:01 Range/Units Lactic Acid Level 1.7 0.4-2.0 mmol/L White Blood Count 35.4 *H 4.4-10.8 10^3/uL Red Blood Count 3.26 L 4.0-5.20 10^6/uL Hemoglobin 10.5 L 12.2-16.2 g/dL Hematocrit 31.2 L 36.0-46.0 % Mean Corpuscular Volume 95.7 80.0-100.0 fL Mean Corpuscular Hemoglobin 32.2 H 28.0-32.0 pg Mean Corpuscular Hemoglobin Concent 33.7 32.0-36.0 g/dL Red Cell Distribution Width 19.5 H 11.8-14.3 % Platelet Count 156 140-450 10^3/uL Mean Platelet Volume 9.8 6.9-10.8 fL Neutrophils (%) (Auto) 37.0-80.0 % Lymphocytes (%) (Auto) 10.0-50.0 % Monocytes (%) (Auto) 0.0-12.0 % Basophils (%) (Auto) 0.0-2.0 % Neutrophils # (Auto) 1.6-8.6 10 ^3/uL Lymphocytes # (Auto) 0.4-5.4 10 ^3/uL Monocytes # (Auto) 0-1.3 10 ^3/uL Differential Total Cells Counted 100.0 100 Neutrophils % (Manual) 90 H 37.0-80.0 Band Neutrophils % (Manual) 0 Lymphocytes % (Manual) 1 L 10.0-50.0 Monocytes % (Manual) 9 0-12 Eosinophils % (Manual) 0 0-7 Basophils % (Manual) 0 0.0-2.0 Metamyelocytes % (manual) 0 Myelocytes % (Manual) 0 Promyelocytes % (Manual) 0 Blast Cells % (Manual) 0 Reactive Lymphocytes 0 Platelet Estimate Adequate [place] Cells Few Schistocytes Few Prothrombin Time 13.5 H 9.3-11.8 sec Prothrombin Time INR 1.31 H 0.9-1.15 Activated Partial Thromboplast Time 42.0 H 24.5-34.5 SEC Sodium Level 139 136-145 mmol/L Potassium Level 3.2 L 3.5-5.1 mmol/L Chloride Level 105 98-107 mmol/L Carbon Dioxide Level 21 20-31 mmol/L Anion Gap 13 5-15 Blood Urea Nitrogen 28 H 9-23 mg/dL Creatinine 1.81 H 0.550-1.02 mg/dL Glomerular Filtration Rate Calc 28 >90 mL/min BUN/Creatinine Ratio 15.5 10.0-20.0 Serum Glucose 138 H 74-106 mg/dL Calcium Level 8.8 8.7-10.4 mg/dL Total Bilirubin 1.9 H 0.2-1.0 mg/dL Aspartate Amino Transferase (AST) 54 H 13-40 U/L Alanine Aminotransferase (ALT) 34 7-40 U/L Alkaline Phosphatase 394 H 46-116 U/L Total Protein 6.1 5.7-8.2 g/dL Albumin 2.9 L 3.2-4.8 g/dL Lipase 25 12-53 U/L Current Medications Medications (Trade) Dose Ordered Sig/Keven Route Start Time Stop Time Status Last Admin Sodium Chloride 500 ml @ 500 mls/hr Q1H ONCE IVB 07/28/25 10:15 07/28/25 11:14 DC 07/28/25 10:25 PROCEDURE(s): GBUS - GALLBLADDER Impression: Cholelithiasis, sludge and gallbladder wall thickening with pericholecystic edema suggesting cholecystitis. Recommend HIDA scan. Atrophic left kidney. Complex right renal cyst with septation/ calcification measuring 5 mm. This can be further characterized on MRI abdomen with and without contrast. IV Hep-Lock was established. The patient was given a 500 cc bolus of normal saline. There is a concern that this patient has a acute cholecystitis secondary to the thickening and edema and the pericholecystic edema The patient's white blood cell count is elevated at 35.4 The INR is 1.31 The chemistry panel shows hypokalemia at 3.2 The total bilirubin is elevated at 1.9 The liver enzymes are slightly elevated The patient is being admitted at this time. The patient will be started on Flagyl 500 mg IV piggyback Images Reviewed?: Images reviewed and evaluated by me Time of 1ST Reevaluation: 10:45 Reevaluation 1ST: Unchanged Patient Education/Counseling: Diagnosis, Treatment, Prognosis Family Education/Counseling: No Family Present SEPSIS Sepsis Screen Date sepsis recognized/suspect: Jul 28, 2025 Time Sepsis recognized/suspect: 1003 Recent Procedure: No On Antibiotic Therapy: No Respiratory Rate >20: No Heart Rate >90: Yes Temp<36 C (96.8 F) or >38.3 C: No SBP <90 or MAP <65 mmHG: No New Acute Mental Status Change: No Is the patient on CPAP, BIPAP,: No Physician Orders Urinalysis (07/28/25 10:11) Heplock Iv (07/28/25 10:11) Cabinet Professional (07/28/25 10:11) Blood Pressure (07/28/25 10:11) Pulse Oximetry (07/28/25 10:11) Gallbladder (07/28/25 10:11) Blood Culture (07/28/25 10:57) Vital Signs Date Time Temp Pulse Resp B/P (MAP) Pulse Ox O2 Delivery O2 Flow Rate FiO2 07/28/25 12:00 96 07/28/25 11:17 87 16 163/85 (111) 100 07/28/25 10:20 Nasal Cannula* 2 28 07/28/25 10:17 99 07/28/25 10:02 98.2 103 18 127/80 97 98.2 07/28/25 10:00 99 Laboratory Tests Test 07/28/25 10:01 07/28/25 11:10 White Blood Count 35.4 10^3/uL (4.4-10.8) *H Lactic Acid Level 1.7 mmol/L (0.4-2.0) Medications Medications Dose Ordered Sig/Keven Route Start Time Stop Time Status Last Admin Dose Admin Sodium Chloride 500 ml @ 500 mls/hr Q1H ONCE IVB 07/28/25 10:15 07/28/25 11:14 DC 07/28/25 10:25 Departure 1 Departure Time of Disposition: 15:10 Impression: Primary Impression: Intractable abdominal pain Additional Impression: Acute cholecystitis Disposition: ADMITTED INPATIENT Admit to: Tele Condition: Fair Critical Care Note Critical Care Time?: Yes (35 min-critical care time only) Stability Stability form required: Yes Unstable for transfer: Telemetry monitoring (Telemetry monitoring required), ED Physician Assesment (Clinical assesment) Heart Score Heart Score: Heart Score Response (Comments) Value History N/A 0 EKG N/A 0 Age N/A 0 Risk Factors N/A 0 Troponin N/A 0 Total 0 I personally scribed for LENI BERMUDEZ MD ([email or web address]) on 07/28/25 at 10:17. Electronically submitted by Abby Geiger ([email or web address]). I personally scribed for LENI BERMUDEZ MD ([email or web address]) on 07/28/25 at 11:21. Electronically submitted by Abby Geiegr ([email or web address]). LENI BERMUDEZ MD Jul 28, 2025 10:17
[2025-07-28] MEDS: SODIUM CHLORIDE 0.9% 500 ML IVB ONE (10:25)
[2025-07-28 10:33] LABS: Hemoglobin 10.5 g/dL (12.2-16.2)
[2025-07-28 10:36] LABS: Hematocrit 31.2 % (36.0-46.0); Mean Corpuscular Hemoglobin 32.2 pg (28.0-32.0); Mean Corpuscular Volume 95.7 fL (80.0-100.0)
--- NOTE | 2025-07-28 10:37 | ECG ---
[facility] Test Date: 2025-07-28 Test Time: 10:00:16 Pat Name: JEFERSON RICARDO Department: [facility] ED Patient ID: [id number] Room: [address] [place] [address] Gender: F Reconstructive Surgeon: cesar : 1945 Requested By: EMERGENCY EMERGENCY Order Number: [id number] Reading MD: Mason Hutchison Measurements Intervals [place] Rate: 99 P: -24 HI: 141 QRS: -36 QRSD: 85 T: 55 QT: 321 QTc: 412 Interpretive Statements Sinus rhythm Probable left atrial enlargement Left axis deviation Probable anterior infarct, age indeterminate Electronically Signed On 07-29-2025 15:24:23 PDT by Mason Hutchison Please click the below link to view image of tracing.
[2025-07-28 10:49] LABS: INR 1.31 (0.9-1.15); Partial Thromboplastin Time 42.0 SEC (24.5-34.5); Prothrombin Time 13.5 sec (9.3-11.8)
[2025-07-28 10:52] LABS: Alanine Aminotransferase 34 U/L (7-40); Anion Gap 13 (5-15); BUN/Creatinine Ratio 15.5 (10.0-20.0); Calcium 8.8 mg/dL (8.7-10.4); Carbon Dioxide 21 mmol/L (20-31); Chloride 105 mmol/L (98-107); Lipase 25 U/L (12-53); Sodium 139 mmol/L (136-145); Total Protein 6.1 g/dL (5.7-8.2)
[2025-07-28 10:53] LABS: Albumin 2.9 g/dL (3.2-4.8); Alkaline Phosphatase 394 U/L (46-116); Bilirubin, Total 1.9 mg/dL (0.2-1.0); Blood Urea Nitrogen 28 mg/dL (9-23); Glucose 138 mg/dL (74-106); Potassium 3.2 mmol/L (3.5-5.1)
[2025-07-28 11:03] LABS: Total Cells Counted 100.0 (100)
--- NOTE | 2025-07-28 11:17 | DVH ---
Technique: Real-time ultrasound imaging of the abdomen was performed with grayscale and color Doppler . Indication: pain Comparison: US LIVER on DOS: 10/10/24 Findings: Technically difficult examination due to patient respirations. Liver measures 13.9 cm. It is unremarkable in echogenicity and echotexture without focal mass. Fela l vein is normal in caliber and demonstrates normal hepatopetal flow. Gallbladder demonstrates cholelithiasis and sludge. There is pericholecystic fluid. The wall thickne ss is 9 mm. The common bile duct measures 5 mm. No intrahepatic biliary ductal dilatation. The right kidney measures 9.7 cm. Right renal cyst with septation/ calcification measuring 5 mm. No h ydronephrosis or sonographic evidence of nephrolithiasis. Atrophic left kidney with severe cortical t hinning. Left kidney measures 6.7 cm. The visualized portion of the pancreas is unremarkable. The visualized portion of the IVC is unremarkable. Impression: Cholelithiasis, sludge and gallbladder wall thickening with pericholecystic edema suggesting cholecys titis. Recommend HIDA scan. Atrophic left kidney. Complex right renal cyst with septation/ calcification measuring 5 mm. This can be further characteri zed on MRI abdomen with and without contrast.
[2025-07-28] MEDS ORDERED: VANCOMYCIN PER PHARMACY 0 MG IV SCH ×2 (12:30→14:00)
[2025-07-28] MEDS ORDERED: MORPHINE SULFATE INJ 2 MG/ml SYRG IV PRN ×2 (12:30→14:00)
[2025-07-28] MEDS ORDERED: ACETAMINOPHEN 325 MG TAB PO PRN (12:30)
[2025-07-28] MEDS ORDERED: NITROGLYCERIN 0.4 MG SL TAB SL PRN ×2 (12:30→14:00)
[2025-07-28] MEDS ORDERED: LABETALOL HCL 20 MG/4 ML VL IV PRN (12:30)
[2025-07-28] MEDS ORDERED: ONDANSETRON HCL 4 MG/2 ML VIAL IV PRN (12:30)
[2025-07-28] MEDS: SODIUM CHLORIDE 0.9% 1,000 ML IV SCH (12:30)
--- NOTE | 2025-07-28 12:40 | DVHHP2 ---
History of Present Illness Reason for Visit: Acute cholecystitis History of Present Illness The patient is a 79-year-old female with past medical history of AFib, anemia, arthritis, Coronary artery disease, pancreatic cancer, CVA, gallstones, and hypertension who presented to [facility] ED with complaint of acute abdominal pain. Patient reports she has been experiencing located right upper quadrant abdominal pain, constant, nonradiating, rating 10/10 numeric scale, associated with shortness of breaths, nausea and vomiting. Patient reports she has not been able to keep anything down, losing weight. Patient was seen and evaluated in the ED, laboratory data shows WBC 35.4, hemoglobin 10.5, hematocrit 31.2, platelets 156, sodium 139, potassium 3.2, BUN 28, creatinine 1.81, GFR 28, glucose 138, calcium 8.8, albumin 2.9, AST 54, ALT 34, total bilirubin 1.9, alkaline phos 304, lipase 25, PTT 13.5, INR 1.31, APTT 42.0, blood pressure 163/85, heart rate 86, temperature 98.2 F, O2 saturation 99% on oxygen. Abdomen/pelvis CT revealing cholelithiasis, sludge and gallbladder wall thickening with pericholecystic edema suggesting cholecystitis, recommend HIDA scan. Patient was started on IV antibiotic regimen vancomycin, please see medication orders section in the computer. On my assessment, daughter at bedside, patient denied chest pain, no headache, dizziness, currently on oxygen, no diarrhea, nausea, vomiting, fever, chills. Patient was admitted for further evaluation and medical management. Past Medical History AFIB, Anemia, Arthritis, CAD, Cancer, CVA, Gallstones, HTN Past Surgical History PTCA, Eye surgery Family History Reviewed, noncontributory to the management of this case. Past Social History The patient lives at home, denies smoking, alcohol or illicit drugs abuse. Review of Systems Constitutional: Yes: Weakness; No: Fever, Chills, Sweats, Malaise, Other Eyes: No: Pain, Vision change, Conjunctivae inflammation, Eyelid inflammation, Other, Redness ENT: No: Ear pain, Ear discharge, Nose pain, Nose discharge, Nose congestion, Mouth pain, Mouth swelling, Throat pain, Throat swelling, Other Respiratory: No: Cough, Dry, Shortness of breath, SOB with excertion, Wheezing, Hemoptysis, Pleuritic Pain, Sputum, Wheezing, Other Cardiovascular: No: Chest Pain, Palpitations, Orthopnea, Paroxysmal Noc. Dyspnea, Edema, Lt Headedness, Other Gastrointestinal: Nausea, Vomiting, Abdominal Pain; No: Diarrhea, Constipation, Melena, Hematochezia, Other Genitourinary: No Dysuria, No Frequency, No Incontinence, No Hematuria, No Retention, No Other Musculoskeletal: No: other, neck pain, shoulder pain, arm pain, back pain, hand pain, leg pain, foot pain Skin: No: Rash, Lesions, Jaundice, Bruising, Other Neurological: No: Weakness, Numbness, Incoordination, Change in speech, Confusion, Seizures, Other Allergies: Coded Allergies: Ciprofloxacin (Verified Allergy, Unknown, 02/21/18) Iodine (Verified Allergy, Unknown, 06/23/17) Penicillins (Verified Allergy, Unknown, 07/07/25) Simvastatin (Verified Allergy, Unknown, 10/10/24) BONE PAIN Sulfa Antibiotics (Verified Allergy, Unknown, 06/23/17) Medications Current Medications Medications Dose Ordered Sig/Keven Route Start Time Stop Time Status Last Admin Dose Admin Vancomycin HCl 0 ml @ 0 mls/hr UD IV 07/28/25 12:30 UNV Labetalol HCl 10 mg Q2HPRN PRN IV 07/28/25 12:30 UNV Famotidine 20 mg Q12HR IV 07/28/25 22:00 UNV Sodium Chloride 1,000 ml @ 60 mls/hr [id number] IV 07/28/25 12:30 UNV Acetaminophen/ Hydrocodone Bitart 1 tab Q4HP PRN PO 07/28/25 12:30 UNV Ondansetron HCl 4 mg Q4HP PRN IV 07/28/25 12:30 UNV Acetaminophen 650 mg Q6HP PRN PO 07/28/25 12:30 UNV Nitroglycerin 0.4 mg Q5MINP PRN SL 07/28/25 12:30 UNV Morphine Sulfate 2 mg Q30M PRN IV 07/28/25 12:30 UNV Exam Vital Signs Vital Signs Date Time Temp Pulse Resp B/P (MAP) Pulse Ox O2 Delivery O2 Flow Rate FiO2 07/28/25 12:00 96 07/28/25 11:17 16 163/85 (111) 100 07/28/25 10:20 Nasal Cannula* 2 28 07/28/25 10:02 98.2 98.2 General Appearance: Alert, Oriented X3, Cooperative, No acute distress HEENT: Atraumatic, PERRLA, EOMI, Mucous membr. moist/pink Respiratory: Normal air movement Cardiovascular: Regular rate, Normal S1, Normal S2, No murmurs Abdominal: Normal bowel sounds, Soft, No hepatospenomegaly, No masses, Other (Reports tenderness) Extremities: No clubbing, No cyanosis, No edema, Normal pulses, No tenderness/swelling Skin: No rashes, No breakdown, No significant lesion Neuro: Normal speech, Normal tone, Sensation intact, Cranial nerves 3-12 NL, Reflexes 2+, Other (Generalized weakness) Psych/Mental Status: Mental status NL, Mood NL Labs/Xrays Labs Test 07/28/25 11:10 07/28/25 10:01 Range/Units Lactic Acid Level 1.7 0.4-2.0 mmol/L White Blood Count 35.4 *H 4.4-10.8 10^3/uL Red Blood Count 3.26 L 4.0-5.20 10^6/uL Hemoglobin 10.5 L 12.2-16.2 g/dL Hematocrit 31.2 L 36.0-46.0 % Mean Corpuscular Volume 95.7 80.0-100.0 fL Mean Corpuscular Hemoglobin 32.2 H 28.0-32.0 pg Mean Corpuscular Hemoglobin Concent 33.7 32.0-36.0 g/dL Red Cell Distribution Width 19.5 H 11.8-14.3 % Platelet Count 156 140-450 10^3/uL Mean Platelet Volume 9.8 6.9-10.8 fL Neutrophils (%) (Auto) 37.0-80.0 % Lymphocytes (%) (Auto) 10.0-50.0 % Monocytes (%) (Auto) 0.0-12.0 % Basophils (%) (Auto) 0.0-2.0 % Neutrophils # (Auto) 1.6-8.6 10 ^3/uL Lymphocytes # (Auto) 0.4-5.4 10 ^3/uL Monocytes # (Auto) 0-1.3 10 ^3/uL Differential Total Cells Counted 100.0 100 Neutrophils % (Manual) 90 H 37.0-80.0 Band Neutrophils % (Manual) 0 Lymphocytes % (Manual) 1 L 10.0-50.0 Monocytes % (Manual) 9 0-12 Eosinophils % (Manual) 0 0-7 Basophils % (Manual) 0 0.0-2.0 Metamyelocytes % (manual) 0 Myelocytes % (Manual) 0 Promyelocytes % (Manual) 0 Blast Cells % (Manual) 0 Reactive Lymphocytes 0 Platelet Estimate Adequate [place] Cells Few Schistocytes Few Prothrombin Time 13.5 H 9.3-11.8 sec Prothrombin Time INR 1.31 H 0.9-1.15 Activated Partial Thromboplast Time 42.0 H 24.5-34.5 SEC Sodium Level 139 136-145 mmol/L Potassium Level 3.2 L 3.5-5.1 mmol/L Chloride Level 105 98-107 mmol/L Carbon Dioxide Level 21 20-31 mmol/L Anion Gap 13 5-15 Blood Urea Nitrogen 28 H 9-23 mg/dL Creatinine 1.81 H 0.550-1.02 mg/dL Glomerular Filtration Rate Calc 28 >90 mL/min BUN/Creatinine Ratio 15.5 10.0-20.0 Serum Glucose 138 H 74-106 mg/dL Calcium Level 8.8 8.7-10.4 mg/dL Total Bilirubin 1.9 H 0.2-1.0 mg/dL Aspartate Amino Transferase (AST) 54 H 13-40 U/L Alanine Aminotransferase (ALT) 34 7-40 U/L Alkaline Phosphatase 394 H 46-116 U/L Total Protein 6.1 5.7-8.2 g/dL Albumin 2.9 L 3.2-4.8 g/dL Lipase 25 12-53 U/L PATIENT: JEFERSON RICARDO AACCT: [id number] UNIT: [id number] : 1945 LOC: ER ROOM / BED: / AGE / SEX: 79 / F ADM STATUS: REG ER SERVICE 1011 ORDERING PHYSICIAN: LENI BERMUDEZ MD PROCEDURE(s): GBUS - GALLBLADDER REASON: pain ORDER NUMBER(s): [id number], ACCESSION NUMBER(s): [id number] Technique: Real-time ultrasound imaging of the abdomen was performed with grayscale and color Doppler. Indication: pain Comparison: US LIVER on DOS: 10/10/24 Findings: Technically difficult examination due to patient respirations. Liver measures 13.9 cm. It is unremarkable in echogenicity and echotexture without focal mass. Portal vein is normal in caliber and demonstrates normal hepatopetal flow. Gallbladder demonstrates cholelithiasis and sludge. There is pericholecystic fluid. The wall thickness is 9 mm. The common bile duct measures 5 mm. No intrahepatic biliary ductal dilatation. The right kidney measures 9.7 cm. Right renal cyst with septation/ calcification measuring 5 mm. No hydronephrosis or sonographic evidence of nephrolithiasis. Atrophic left kidney with severe cortical thinning. Left kidney measures 6.7 cm. The visualized portion of the pancreas is unremarkable. The visualized portion of the IVC is unremarkable. Impression: Cholelithiasis, sludge and gallbladder wall thickening with pericholecystic edema suggesting cholecystitis. Recommend HIDA scan. Atrophic left kidney. Complex right renal cyst with septation/calcification measuring 5 mm. This can be further characterized on MRI abdomen with and without contrast. SEPSIS Sepsis Screen Date sepsis recognized/suspect: Jul 28, 2025 Time Sepsis recognized/suspect: 1040 Recent Procedure: No On Antibiotic Therapy: No Respiratory Rate >20: No Heart Rate >90: Yes Temp<36 C (96.8 F) or >38.3 C: No SBP <90 or MAP <65 mmHG: No New Acute Mental Status Change: No Is the patient on CPAP, BIPAP,: No Physician Orders Urinalysis (07/28/25 10:11) Heplock Iv (07/28/25 10:11) Electric Tool Repairer (07/28/25 10:11) Blood Pressure (07/28/25 10:11) Pulse Oximetry (07/28/25 10:11) Gallbladder (07/28/25 10:11) Blood Culture (07/28/25 10:57) Nm Hida Scan (07/28/25 12:28) * Surgical Consult (07/28/25 ) Vancomycin Per Pharmacy (07/28/25 12:30) Potassium Chl 20meq/100ml (07/28/25 12:30) Labetalol Hcl (Labetalol Hcl) (07/28/25 12:30) Famotidine Injection (Pepcid Injection) (07/28/25 22:00) Admit (07/28/25 12:28) Allergies (07/28/25 12:) Code Status (07/28/25 12:) Sodium Chloride 0.9% (07/28/25 12:30) Oxygen Per Hour (07/28/25:) Hydrocodone-Acet 5/325mg Tab ([place] 5/32 (07/28/25 12:30) Ondansetron Hcl (Zofran) (07/28/25 12:30) Fall Risk Precautions In Place QSHIFT (07/28/25:) Complete Blood Count (07/29/25 04:00) Comprehensive Metabolic Panel (07/29/25 04:00) Condition: Serious (07/28/25 12:) Acetaminophen Tablet (Tylenol Tablet) (07/28/25 12:) Clear Liq Diet (07/28/25 Lunch) Maintain Bed Rest (07/28/25:) Sequential Compression Device (07/28/25 ) Nitroglycerin Sublingual (Ntrostat Subli (07/28/25 12:) Morphine Sulfate Injection (07/28/25 12:30) Stat Ekg For Chest Pain (07/28/25:) Notify Md Of Changes From Base (07/28/25 12:) Data Analysis Assistant For 24 Hours (07/28/25 12:) Emergency Dysrhythmia Protocol (07/28/25:) Rhythm Strips Once Every Shift (07/28/25 12:) Oxygen By Nasal Cannula (07/28/25 12:) Vancomycin 1gm/250ml Kit (07/28/25 12:30) Vital Signs Date Time Temp Pulse Resp B/P (MAP) Pulse Ox O2 Delivery O2 Flow Rate FiO2 07/28/25 12:00 96 07/28/25 11:17 87 16 163/85 (111) 100 07/28/25 10:20 Nasal Cannula* 2 28 07/28/25 10:17 99 07/28/25 10:02 98.2 103 18 127/80 97 98.2 07/28/25 10:00 99 Laboratory Tests Test 07/28/25 10:01 07/28/25 11:10 White Blood Count 35.4 10^3/uL (4.4-10.8) *H Lactic Acid Level 1.7 mmol/L (0.4-2.0) Medications Medications Dose Ordered Sig/Keven Route Start Time Stop Time Status Last Admin Dose Admin Sodium Chloride 500 ml @ 500 mls/hr Q1H ONCE IVB 07/28/25 10:15 07/28/25 11:14 DC 07/28/25 10: 500 MLS/HR Assessment/Plan Assessment/Plan Intractable abdominal pain Hypokalemia Acute cholecystitis Generalized weakness Sepsis, unspecified organism Plan 1. Admit to telemetry unit 2. Breathing treatment 3. Pain control management 4. IV antibiotic management 5. Management of fluids and electrolytes 6. Consultation for surgery/hospitalist 7. Diagnostic test abdomen/pelvis CT 8. DVT prophylaxis on SCDs 9. Repeat labs CBC, CMP in a.m. 10. Home medication reviewed and reconciled 11. Continue with current medical management 12. Treatment plan discussed with patient/daughter and RN. Patient/daughter verbalized understanding. Plan discussed with: Patient, Daughter (Daughter at bedside.), Other (RN) My Orders Orders - TREVER NDIAYE DNP Procedure Category Date Status Time Nm Hida Scan NM 07/28/25 Logged 12:28 * Surgical Consult CONS 07/28/25 Transmitted Vancomycin Per PHA 07/28/25 Logged Pharmacy 12:30 Potassium Chl PHA 07/28/25 Logged 20meq/100ml 12:30 Labetalol Hcl PHA 07/28/25 Logged (Labetalol Hcl) 12:30 Famotidine Injection PHA 07/28/25 Logged (Pepcid Injection) 22:00 Admit ADMIT 07/28/25 Transmitted 12:28 Allergies DANIELITO 07/28/25 In Process 12:28 Code Status CODE 07/28/25 Transmitted 12:28 Sodium Chloride 0.9% PHA 07/28/25 Logged 12:30 Oxygen Per Hour RT 07/28/25 Transmitted 12:28 Hydrocodone-Acet PHA 07/28/25 Logged 5/325mg Tab ([place] 12:30 Ondansetron Hcl PHA 07/28/25 Logged (Zofran) 12:30 Fall Risk Precautions DANIELITO 07/28/[address] 12:28 Complete Blood Count LAB 07/29/25 Verified 04:00 Comprehensive LAB 07/29/25 Verified Metabolic Panel 04:00 Condition: Serious DANIELITO 07/28/25 In Process 12:28 Acetaminophen Tablet PHA 07/28/25 Logged (Tylenol Tablet) 12:30 Clear Liq Diet DIET 07/28/25 Transmitted Lunch Maintain Bed Rest [facility] 07/28/25 In Process 12:28 Sequential [facility] 07/28/25 In Process Compression Device Nitroglycerin PHA 07/28/25 Logged Sublingual (Ntrostat 12:30 Morphine Sulfate [facility] 07/28/25 Logged Injection 12:30 Stat Ekg For Chest [facility] 07/28/25 In Process Pain 12:28 Notify Md Of Changes [facility] 07/28/25 In Process From Base 12:28 Data Analysis Assistant For [facility] 07/28/25 In Process 24 Hours 12:28 Emergency Dysrhythmia [facility] 07/28/25 In Process Protocol 12:28 Rhythm Strips Once [facility] 07/28/25 In Process Every Shift 12:28 Oxygen By Nasal RT 07/28/25 Transmitted Cannula 12:28 Vancomycin 1gm/250ml PHA 07/28/25 Logged Kit 12:30 Problem List: (1) Intractable abdominal pain (2) Hypokalemia (3) Acute cholecystitis (4) Generalized weakness (5) Sepsis, unspecified organism Date of Service: Jul 28, 2025 Billing Provider: TREVER NDIAYE DNP Common Visit Codes: [id number] INP/OBS CARE (HIGH) TREVER NDIAYE DNP Jul 28, 2025 12:40
[2025-07-28] MEDS: POTASSIUM CHL 20MEQ/100ML 100 ML IV ONE (13:24)
--- NOTE | 2025-07-28 13:48 | DVHPN2 ---
Progress Note - Dictate Date Seen: Jul 28, 2025 Medical Necessity Reason Pt with a Central, PICC or Fol: Yes The following are medically ne: Viera Catheter Subjective PT WITH SEVERE ABD PAIN LEUKOCYTOSIS ABD PAIN NAUSEA/ VOMITING SEVERE VOLUME DEPLETION HYPOKALEMIA HEMOPTYSIS ANEMIA CVA PANCREATIC CA S/P STENT ANEMIA GALLSTONES CAROTID STENOSIS HX OF CVA LUNG MASS S/P BOPSY RA CAROTID STENOSIS MRI 1. Acute / recent small infarct in the left yost radiata. 2. Evolving subacute to chronic infarct in the right parietal lobe which was present as an acute infarct from MRI brain dated 10/10/2024. 3. Generalized cerebral volume loss and moderate chronic microvascular ischemic change. CAROTID U/S 1. stenosis noted in the right carotid system.50-69% stenosis in the right internal carotid. 2. 50-69% stenosis of the left vital signs Vital Sign Date Time Temp Pulse Resp B/P (MAP) Pulse Ox O2 Delivery O2 Flow Rate FiO2 07/28/25 12:00 96 07/28/25 11:17 16 163/85 (111) 100 07/28/25 10:20 Nasal Cannula* 2 28 07/28/25 10:02 98.2 98.2 medications Current Medications Medications Dose Ordered Sig/Keven Route Start Time Stop Time Status Last Admin Dose Admin Vancomycin HCl 0 ml @ 0 mls/hr UD IV 07/28/25 12:30 UNV Labetalol HCl 10 mg Q2HPRN PRN IV 07/28/25 12:30 UNV Famotidine 20 mg Q12HR IV 07/28/25 22:00 UNV Sodium Chloride 1,000 ml @ 60 mls/hr [id number] IV 07/28/25 12:30 07/28/25 12:30 60 MLS/HR Acetaminophen/ Hydrocodone Bitart 1 tab Q4HP PRN PO 07/28/25 12:30 UNV Ondansetron HCl 4 mg Q4HP PRN IV 07/28/25 12:30 UNV Acetaminophen 650 mg Q6HP PRN PO 07/28/25 12:30 UNV Nitroglycerin 0.4 mg Q5MINP PRN SL 07/28/25 12:30 UNV Morphine Sulfate 2 mg Q30M PRN IV 07/28/25 12:30 UNV laboratory and microbiology Laboratory Tests 10/13/25 10:01 Test 07/28/25 10:01 Range/Units Serum Glucose 138 H 74-106 mg/dL Cholelithiasis, sludge and gallbladder wall thickening with pericholecystic edema suggesting cholecystitis. Recommend HIDA scan. Atrophic left kidney. Complex right renal cyst with septation/ calcification measuring 5 mm. This can be further characterized on MRI abdomen with and without contrast. Problem List ACUTE CHOLECYSTITIS SEVERE ABD PAIN LEUKOCYTOSIS ABD PAIN NAUSEA/ VOMITING SEVERE VOLUME DEPLETION HYPOKALEMIA HEMOPTYSIS ANEMIA CVA PANCREATIC CA S/P STENT ANEMIA GALLSTONES CAROTID STENOSIS HX OF CVA LUNG MASS S/P BOPSY RA CAROTID STENOSIS MRI 1. Acute / recent small infarct in the left yost radiata. 2. Evolving subacute to chronic infarct in the right parietal lobe which was present as an acute infarct from MRI brain dated 10/10/2024. 3. Generalized cerebral volume loss and moderate chronic microvascular ischemic change. CAROTID U/S 1. stenosis noted in the right carotid system.50-69% stenosis in the right internal carotid. 2. 50-69% stenosis of the left Assessment/Plan ABX IV FLUID NPO START TPN Plan discussed with: Patient, Spouse, Daughter Critical Care Time(min): 35 JOSE ANGEL HALE MD Jul 28, 2025 13:48
[2025-07-28] MEDS: VANCOMYCIN 1GM/250ML KIT 250 ML IV ONE (16:00)
[2025-07-28] MEDS: HYDROMORPHONE HCL 1 MG/ML INJ IV PRN (16:42)
--- NOTE | 2025-07-28 16:55 | DVH ---
Procedure: IA NM HIDA SCAN Exam Date: 07/28/2025 02:25 PM Clinical History: Rule out Cholecystitis Comparison Study: Abdominal ultrasound from today Nuclear Medicine Hepatobiliary Scan. Technique: Following the intravenous administration of 4.1 mCi of technetium 99m labeled Choletec multiple plana r abdominal planar images were obtained in anterior projection in 1 minute intervals for 32 minutes . Right lateral images were obtained at 65 minutes after injection. Findings: % tracer within the liver. Small-bowel seen at approximately 20 minutes. Gallbladder not visualized at 65 minutes. Please note examination had to be terminated early due to patient pain. Impression: The gallbladder is nonvisualized on the 65 minute images consistent with cystic duct obstruction.
[2025-07-28 17:10] LABS: Lactic Acid w/Reflex 2.4 mmol/L (0.4-2.0)
[2025-07-28] MEDS: HYDROcodone-ACET 5/325MG TAB PO PRN (17:53)
[2025-07-28] MEDS: FAMOTIDINE (10MG/ML) 2ML VL IV SCH (22:44)
[2025-07-29] VITALS (16 sets, daily range): BP systolic 119–177; BP diastolic 71–94; PULSE 99–119; RESP 12–22; TEMP 97.2–98.4; O2SAT 96–100
[2025-07-29 04:47] LABS: Hematocrit 29.4 % (36.0-46.0); Hemoglobin 9.8 g/dL (12.2-16.2); Mean Corpuscular Hemoglobin 32.5 pg (28.0-32.0); Mean Corpuscular Volume 97.4 fL (80.0-100.0)
[2025-07-29 05:00] LABS: Alanine Aminotransferase 27 U/L (7-40); Anion Gap 13 (5-15); BUN/Creatinine Ratio 16.6 (10.0-20.0); Glucose 97 mg/dL (74-106); Sodium 142 mmol/L (136-145)
[2025-07-29 05:04] LABS: Albumin 2.7 g/dL (3.2-4.8); Alkaline Phosphatase 314 U/L (46-116); Bilirubin, Total 2.1 mg/dL (0.2-1.0); Blood Urea Nitrogen 27 mg/dL (9-23); Calcium 8.3 mg/dL (8.7-10.4); Carbon Dioxide 20 mmol/L (20-31); Chloride 109 mmol/L (98-107); Potassium 3.3 mmol/L (3.5-5.1); Total Protein 5.6 g/dL (5.7-8.2)
[2025-07-29 05:36] LABS: Total Cells Counted 100.0 (100)
[2025-07-29] MEDS: SODIUM CHLORIDE 0.9% 1,000 ML IV ONE (06:14)
[2025-07-29] MEDS: METOPROLOL TARTRATE 1MG/1ML-5ML VIAL IV SCH (08:43)
[2025-07-29] MEDS: ADENOSINE 6 MG/2 ML INJ IV ONE (09:12)
[2025-07-29] MEDS ORDERED: TPN PER PHARMACY 0 ML IV SCH ×2 (11:45→14:30)
--- NOTE | 2025-07-29 12:03 | DVHPN2 ---
Progress Note Date Seen: Jul 29, 2025 Medical Necessity Reason Pt with a Central, PICC or Fol: Yes The following are medically ne: Quinn Catheter Reason for qiunn catheter: Strict I&O Subjective Patient reports: No new complaints Review of Systems: HEENT:Normal, CVS:Normal, RESPIRATORY:Normal, GI:Normal, :Normal, MSK:Normal, NEURO:Normal Objective vital signs Vital Sign Date Time Temp Pulse Resp B/P (MAP) Pulse Ox O2 Delivery O2 Flow Rate FiO2 07/29/25 09:07 Nasal Cannula* 2 28 07/29/25 08:56 144 20 104/57 (73) 99 07/28/25 19:30 98.3 98.3 Total Intake and Output 07/28/25 07/28/25 07/29/25 15:00 23:00 07:00 Intake Total 170 ml 230 ml 420 ml Balance 170 ml 230 ml 420 ml medications Current Medications Medications Dose Ordered Sig/Keven Route Start Time Stop Time Status Last Admin Dose Admin Labetalol HCl 10 mg Q2HPRN PRN IV 07/28/25 12:30 Famotidine 20 mg Q12HR IV 07/28/25 22:00 07/29/25 09:32 20 MG Sodium Chloride 1,000 ml @ 60 mls/hr [id number] IV 07/28/25 12:30 07/29/25 05:20 60 MLS/HR Acetaminophen/ Hydrocodone Bitart 1 tab Q4HP PRN PO 07/28/25 12:30 07/28/25 17:53 1 TAB Ondansetron HCl 4 mg Q4HP PRN IV 07/28/25 12:30 Acetaminophen 650 mg Q6HP PRN PO 07/28/25 12:30 Nitroglycerin 0.4 mg Q5MINP PRN SL 07/28/25 12:30 Morphine Sulfate 2 mg Q30M PRN IV 07/28/25 12:30 Nitroglycerin 0.4 mg Q5MINP PRN SL 07/28/25 14:00 Morphine Sulfate 2 mg Q30M PRN IV 07/28/25 14:00 Vancomycin HCl 0 ml @ 0 mls/hr UD IV 07/28/25 14:00 Ceftriaxone Sodium 50 ml @ 100 mls/hr DAILY@09 IV 07/29/25 09:00 07/29/25 09:32 100 MLS/HR Hydromorphone HCl 0.5 mg Q4HPRN PRN IV 07/28/25 16:15 07/29/25 07:04 0.5 MG Metoprolol Tartrate 5 mg Q5M IV 07/29/25 08:30 07/29/25 08:43 5 MG Amino Acids 0 ml @ 0 mls/hr PER PHARMACY IV 07/29/25 11:45 UNV Examination: GENERAL:Normal, HEENT:Normal, NECK:Normal, LUNGS:Normal, CVS:Normal, ABDOMEN:Normal, ABDOMEN:Abnormal (right upper quadrant tenderness), MSK:Normal, SKIN:Normal, NEURO:Normal, :Normal laboratory and microbiology Laboratory Tests 07/29/25 04:20 Test 07/29/25 04:20 Range/Units Serum Glucose 97 74-106 mg/dL Microbiology Date/Time Source Procedure Growth Status 07/28/25 11:10 Blood Blood Culture - Preliminary NO GROWTH AFTER 24 HOURS OF INCUBATION. Resulted Problem List/Assessment/Plan Problem List/Assessment/Plan * acute [place] with sepsis: iv antibiotics, surg eval, radiology consult- cholecystostomy tube * s/p CVA. * Left internal carotid artery stenosis, status post angioplasty and stent. * Pancreatic cancer with metastases * Hypertension. * Diabetes mellitus: ssi * Pancreatic insufficiency. * Lupus. * Coronary artery disease with stent. * mod protein malnutrition: tpn * acute renal failure ?vasomotor nephropathy: ivf * hypokalemia; replace Plan discussed with: Patient, Spouse, Daughter My Orders My Orders Orders - ELÍAS CYR MD Procedure Category Date Status Time Communication Order ORDERS 07/29/25 Transmitted 11:30 Tpn Per Pharmacy PHA 07/29/25 Logged 11:45 * Radiologist Consult CONS 07/29/25 Transmitted 11:51 * Surgical Consult CONS 07/29/25 Transmitted Pantoprazole PHA 07/30/25 Transmitted (Protonix) 10:00 Cefepime 2gm Extended PHA 07/29/25 Transmitted Infusion 22:00 Cefepime 2 Gm PHA 07/29/25 Transmitted 12:00 Urinalysis LAB 07/29/25 Uncollected 11:53 Potassium Chl Jamie PHA 07/29/25 Transmitted KCL 12:00 Comprehensive LAB 07/30/25 Verified Metabolic Panel 06:00 Complete Blood Count LAB 07/30/25 Verified 06:00 Chest Portable XY 07/29/25 Transmitted 11:53 Dietary Evaluation Review Recommendations by RD: Increase Calorie Intake, PPN/TPN Comments: Pt meets criteria of Severe Protein-Calorie Malnutrition in the setting of acute illness based on PO intake <50% estimated energy requirement >5 days, wt loss 13.6kg/20% in 1 year, moderate muscle wasting (methodist & clavicle) and fat depletion (orbital & triceps). Nutrition Recommendation; 1) TPN per Pharmacy to supply 1806-0422 kcal & 63-79 gm protein 2) Advance to soft diet as medically feasible 3) Monitor NPO status, lab values, weight trend, and I/O Expected Outcomes/Goals: To gain/maintain body weight Intake to meet >75% estimated needs GI symptoms to improve Fu 2-3 days Food and Nutrition Intake (Sev: <50% est energy req 5days Interpretation of weight loss: up to 20% in 1 year Body Fat Depletion (Severe): Mod to Severe Depletion Muscle Mass (Severe): Mod to Severe Depletion Fluid Accumulation (N/A): N/A Protein Calorie Malnutrition: Severe Is there a minimum of two crit: Yes Critical Care Time (mins): 39 (critical care time excluding procedures is 39 mins) Date of Service: Jul 29, 2025 Billing Provider: ELÍAS CYR MD Common Visit Codes: [id number] CARE 30-74 MIN ELÍAS CYR MD Jul 29, 2025 12:02
[2025-07-29] MEDS: DIGOXIN (250MCG/ML) 2 ML AMPULE IV ONE ×2 (13:15→13:30)
--- NOTE | 2025-07-29 13:26 | DVH ---
CHEST RADIOGRAPH Indication: HTN Technique: Single frontal view of the chest was obtained Comparison: XY CHEST PORTABLE on DOS: 07/07/25, XY CHEST PORTABLE on DOS: 02/14/25, XY CHEST PORTABLE on DOS: 12/09/24 FINDINGS: Lines and Tubes: Is noted from the right arm in place in the superior vena cava. Is noted over the ri ght chest. Lungs: No focal consolidation. Pleura: No effusion. No pneumothorax. Cardiomediastinal contours: Unremarkable Bones: No acute osseous abnormality. IMPRESSION: 1. PICC line in place in the right arm with the tip in the superior vena cava above the right atrium. 2. In comparison with 07/07/2025 decreased inspiratory effort is noted.
--- NOTE | 2025-07-29 13:41 | DVHPN2 ---
Progress Note - Dictate Date Seen: Jul 29, 2025 Medical Necessity Reason Pt with a Central, PICC or Fol: Yes The following are medically ne: Quinn Catheter Reason for quinn catheter: Strict I&O Subjective PT WITH SEVERE ABD PAIN LEUKOCYTOSIS ABD PAIN NAUSEA/ VOMITING SEVERE VOLUME DEPLETION HYPOKALEMIA HEMOPTYSIS ANEMIA CVA PANCREATIC CA S/P STENT ANEMIA GALLSTONES CAROTID STENOSIS HX OF CVA LUNG MASS S/P BOPSY RA CAROTID STENOSIS MRI 1. Acute / recent small infarct in the left yost radiata. 2. Evolving subacute to chronic infarct in the right parietal lobe which was present as an acute infarct from MRI brain dated 10/10/2024. 3. Generalized cerebral volume loss and moderate chronic microvascular ischemic change. CAROTID U/S 1. stenosis noted in the right carotid system.50-69% stenosis in the right internal carotid. 2. 50-69% stenosis of the left vital signs Vital Sign Date Time Temp Pulse Resp B/P (MAP) Pulse Ox O2 Delivery O2 Flow Rate FiO2 07/29/25 12:00 110 07/29/25 11:58 97.8 22 127/74 (91) 99 97.8 07/29/25 11:58 Nasal Cannula* 1 24 Total Intake and Output 07/28/25 07/28/25 07/29/25 15:00 23:00 07:00 Intake Total 170 ml 230 ml 420 ml Balance 170 ml 230 ml 420 ml medications Current Medications Medications Dose Ordered Sig/Keven Route Start Time Stop Time Status Last Admin Dose Admin Sodium Chloride 1,000 ml @ 60 mls/hr [id number] IV 07/28/25 12:30 07/29/25 05:20 60 MLS/HR Acetaminophen/ Hydrocodone Bitart 1 tab Q4HP PRN PO 07/28/25 12:30 07/28/25 17:53 1 TAB Ondansetron HCl 4 mg Q4HP PRN IV 07/28/25 12:30 Acetaminophen 650 mg Q6HP PRN PO 07/28/25 12:30 Nitroglycerin 0.4 mg Q5MINP PRN SL 07/28/25 14:00 Morphine Sulfate 2 mg Q30M PRN IV 07/28/25 14:00 Vancomycin HCl 0 ml @ 0 mls/hr UD IV 07/28/25 14:00 Hydromorphone HCl 0.5 mg Q4HPRN PRN IV 07/28/25 16:15 07/29/25 07:04 0.5 MG Amino Acids 0 ml @ 0 mls/hr PER PHARMACY IV 07/29/25 11:45 Pantoprazole Sodium 40 mg DAILY IV 07/30/25 10:00 Cefepime HCl 50 ml @ 12.5 mls/hr Q12HR IV 07/29/25 22:00 Diagnostic Test (Pha) 1 strip Q6HR 07/30/25 00:00 Insulin Human Regular FOLLOW SLIDING SCALE Q6HR SC 07/30/25 00:00 Dextrose 50 ml UD IV 07/30/25 00:00 Amino Acids/ Electrolytes/ Dextrose 1,000 ml @ 41 mls/hr DAILY@2200 IV 07/29/25 22:00 07/30/25 21:59 laboratory and microbiology Laboratory Tests 07/29/25 04:20 Test 07/29/25 04:20 Range/Units Serum Glucose 97 74-106 mg/dL Problem List ACUTE CHOLECYSTITIS SEVERE ABD PAIN LEUKOCYTOSIS ABD PAIN NAUSEA/ VOMITING SEVERE VOLUME DEPLETION HYPOKALEMIA HEMOPTYSIS ANEMIA CVA PANCREATIC CA S/P STENT ANEMIA GALLSTONES CAROTID STENOSIS HX OF CVA LUNG MASS S/P BOPSY RA CAROTID STENOSIS MRI 1. Acute / recent small infarct in the left yost radiata. 2. Evolving subacute to chronic infarct in the right parietal lobe which was present as an acute infarct from MRI brain dated 10/10/2024. 3. Generalized cerebral volume loss and moderate chronic microvascular ischemic change. CAROTID U/S 1. stenosis noted in the right carotid system.50-69% stenosis in the right internal carotid. 2. 50-69% stenosis of the left Assessment/Plan ABX IV FLUID NPO START TPN DIG 0.25 MG IVP X 2 CHOLECYSTOSTOMY Dietary Evaluation Review Recommendations by RD: Increase Calorie Intake, PPN/TPN Comments: Pt meets criteria of Severe Protein-Calorie Malnutrition in the setting of acute illness based on PO intake <50% estimated energy requirement >5 days, wt loss 13.6kg/20% in 1 year, moderate muscle wasting (moravian & clavicle) and fat depletion (orbital & triceps). Nutrition Recommendation; 1) TPN per Pharmacy to supply [phone] kcal & 63-79 gm protein 2) Advance to soft diet as medically feasible 3) Monitor NPO status, lab values, weight trend, and I/O Expected Outcomes/Goals: To gain/maintain body weight Intake to meet >75% estimated needs GI symptoms to improve Fu 2-3 days Food and Nutrition Intake (Sev: <50% est energy req 5days Interpretation of weight loss: up to 20% in 1 year Body Fat Depletion (Severe): Mod to Severe Depletion Muscle Mass (Severe): Mod to Severe Depletion Fluid Accumulation (N/A): N/A Protein Calorie Malnutrition: Severe Is there a minimum of two crit: Yes Plan discussed with: Patient, Spouse Critical Care Time(min): 35 JOSE ANGEL HALE MD Jul 29, 2025 13:41
[2025-07-29] MEDS: LIDOCAINE 2%HCL (LOCAL ANESTH.) INJ 20ML MDV ONE (13:49)
[2025-07-29] MEDS: fentaNYL CITRATE 100 MCG/2 ML VL ONE (13:50)
[2025-07-29] MEDS: MIDAZOLAM HCL 2MG/2ML 2ml VIAL (1mg/ml) ONE (13:50)
[2025-07-29] MEDS: diphenhdrAMINE HCL 50 MG/1 ML VL ONE (13:53)
[2025-07-29] MEDS: methylPREDNISolone SOD SUCC 125 MG/2 ML VL ONE (13:53)
[2025-07-29] MEDS: FAMOTIDINE (10MG/ML) 2ML VL IV ONE (13:54)
[2025-07-29] MEDS: VANCOMYCIN 500mg/100mL 100 ML IV ONE (14:35)
[2025-07-29] MEDS: MAGNESIUM SULFATE 1GM/100ML 100 ML IV ONE (14:42)
[2025-07-29] MEDS: POTASSIUM CHLORIDE 40 MEQ, LIDOCAINE 1% (LOCAL ANESTH.) 4 ML in SODIUM CHL 0.9% 250 ML IV ONE (15:02)
[2025-07-29] MEDS: CEFEPIME 2GM/50ML NS 50 ML IV ONE (15:20)
--- NOTE | 2025-07-29 15:22 | DVH ---
PROCEDURE: Ultrasound and fluoroscopy GUIDED cholecystomy tube placement HISTORY: Sepsis with acute cholecystitis. CHOLECYSTOSTOMY DRAIN DOCUMENTATION: Informed consent was obtained and a procedural time out was performed. Contrast: 5 cc of Visipaque Fluoro time:1.4 mins. DAP:139.61 SEDATION: Moderate sedation was utilized during the procedure. The patient received opioids, the dosi ng of which was documented in the patient s permanent medical record. Pre-sedation history and evalua tion revealed no contraindications to sedation. The patient s level of consciousness and physiologic status was monitored continuously by the physician and nursing staff throughout the procedure. Total intra-service moderate sedation time was 20 minutes. TECHNIQUE: The skin over the distended gallbladder was sterilely prepped, draped, and infiltrated wit h 1% lidocaine. Using CT guidance, a micro puncture needle was directed into the gallbladder under ultrasound guidance. Approximately 10 cc of purulent fluid was aspirated. 2 cc of contrast was inject ed to confirm intraluminal position of the needle. Next, 0.018 wire was polaced through the micropunc ture needle. Then, micro puncture sheath was placed over the wire without difficulty. Next, 018 wire was exchanged with 035 amplatz wire. The tract was dilated to 8 icelandic over the amplatz wire. The d ilator was then removed and 8.5 f pigtail catheter was advanced over the amplatz wire into the gallbl adder. 3 cc of contrast was injected and confirmed appropriate positioning. Approximately 40 cc of p zaire was aspirated from the pigtail catheter . The catheter was sutured in place with 2-0 silk. Steril e dressings were applied. FINDINGS: Limited US imaging demonstrates distended gallbladder with diffusely thickened irregular wall and membranes concerning for gangrenous cholecystitis.total of 50 cc of purulent fluid was remov ed. IMPRESSION: 1. SUCCESSFUL ultrasound and fluoroscopy guided cholecystostomy tube placement.
--- NOTE | 2025-07-29 15:24 | DVH ---
PROCEDURE: ULTRASOUND and fluoroscopy guided Cholecystostomy HISTORY: florence tube insertion DOCUMENTATION: Informed consent was obtained and a procedural time out was performed. FINDINGS: Limited US imaging demonstrates distended gallbladder with diffusely thickened irregular wall and m embranes concerning for gangrenous cholecystitis.total of 50 cc of purulent fluid was removed. IMPRESSION: 1. SUCCESSFUL ultrasound and fluoroscopy guided cholecystostomy tube placement.
[2025-07-29] MEDS: LABETALOL HCL 20 MG/4 ML VL IV ONE (20:03)
[2025-07-29 21:16] LABS: Urine Protein, UAD 1+ (Negative)
[2025-07-29] MEDS: CEFEPIME 2GM/50ML NS 50 ML IV SCH (22:00)
[2025-07-29] MEDS: AMINO ACID INFUSION IN D10W 1,000 ML IV SCH (22:00)
--- NOTE | 2025-07-29 23:17 | DVHINCON2 ---
Date of service: Jul 29, 2025 Family History: Cardiovascular disease G8 MOTHER FH: breast cancer 19 CHILD FH: cancer G8 FATHER Allergies: Coded Allergies: Ciprofloxacin (Verified Allergy, Unknown, 02/21/18) Iodine (Verified Allergy, Unknown, 06/23/17) Penicillins (Verified Allergy, Unknown, 07/07/25) Simvastatin (Verified Allergy, Unknown, 10/10/24) BONE PAIN Sulfa Antibiotics (Verified Allergy, Unknown, 06/23/17) Home Meds Active Scripts Clopidogrel Bisulfate (Plavix) 75 Mg Tab, 75 MG PO DAILY for 30 Days, #30 TAB 3 Refills Prov:ELÍAS CYR MD 02/19/25 Cefdinir (Cefdinir) 300 Mg Cap, 1 CAP PO BID for 7 Days, #14 CAP Prov:ELÍAS CYR MD 12/11/24 Ezetimibe (Zetia) 10 Mg Tab, 10 MG PO DAILY for 30 Days, #30 TAB 3 Refills Prov:ELÍAS CYR MD 10/30/24 Aspirin (ASPIRIN 81) 81 Mg Tab, 81 MG PO DAILY for 30 Days, #30 TAB 3 Refills Prov:ELÍAS CYR MD 10/30/24 Reported Medications Megestrol Acetate (Megace) 20 Mg Tb, 1 TAB PO DAILY 07/07/25 Clonidine Hydrochloride (Clonidine Hcl) 0.1 Mg Tab, 1 TAB PO BID 07/07/25 Senna (Senokot) 8.6 Mg Tab, 1 TAB PO BID, #40 TAB 02/17/25 Pancreatic Enzymes (Pancreaze) 4,200 Unit Cap, 4200 UNIT PO, CAP 12/09/24 Hydroxychloroquine Sulfate (Hydroxychloroquine Sulfat) 200 Mg Tab, 1 TAB DAILY 10/24/24 Potassium Chloride (Potassium Chloride ER) 20 Meq Tab, 1 TAB PO DAILY 10/24/24 Folic Acid (Folic Acid) 1 Mg Tab, 1 TAB PO DAILY 10/24/24 Metoprolol Succinate (Metoprolol Succinate Er) 50 Mg Tab, 1 TAB PO DAILY 10/24/24 Magnesium Chloride (Slow-Mag) Tab, 2 TAB PO DAILY, TAB 10/08/24 Linseed Oil (Flax Seed Oil) 1,000 Mg Cap, 1000 MG PO, CAP 10/08/24 Cholecalciferol (VITAMIN D3) 2,000 Unit Tab, 1 TAB PO DAILY, #30 TAB 5 Refills 10/08/24 Ibuprofen Micronized (MOTRIN TABLET) 600 Mg Tb, 600 MG PO TID, #40 TAB *Black box warning-NSAIDS can increase risk of [place] & hypertension, GI irritation, ulceration, bleed, perferation. Do not use post cardiac surgery. Use short duration/lowest effective dose. 10/08/24 Current Medications Current Medications Medications (Trade) Dose Ordered Sig/Keven Route PRN Reason Start Time Stop Time Status Last Admin Ceftriaxone Sodium 50 ml @ 100 mls/hr DAILY@09 IV 07/29/25 09:00 07/29/25 11:58 DC 07/29/25 09:32 Metoprolol Tartrate (Lopressor) 5 mg Q5M IV 07/29/25 08:30 07/29/25 11:58 DC 07/29/25 08:43 Amino Acids 0 ml @ 0 mls/hr PER PHARMACY IV 07/29/25 11:45 Cancel Pantoprazole Sodium (Protonix) 40 mg DAILY IV 07/30/25 10:00 Cefepime HCl 50 ml @ 12.5 mls/hr Q12HR IV 07/29/25 22:00 07/29/25 22:00 Diagnostic Test (Pha) (Accu-Chek Comfort Curve T) 1 strip Q6HR 07/30/25 00:00 Insulin Human Regular (InsuLIN R) FOLLOW SLIDING SCALE Q6HR SC 07/30/25 00:00 Dextrose 50 ml UD IV 07/30/25 00:00 Amino Acids/ Electrolytes/ Dextrose 1,000 ml @ 41 mls/hr DAILY@2200 IV 07/29/25 22:00 07/30/25 21:59 07/29/25 22:00 Amino Acids 0 ml @ 0 mls/hr PER PHARMACY IV 07/29/25 14:30 Vital Signs Vital Signs Date Time Temp Pulse Resp B/P (MAP) Pulse Ox O2 Delivery O2 Flow Rate FiO2 07/29/25 20:03 113 173/92 07/29/25 19:11 98 Nasal Cannula* 2 28 07/29/25 17:20 16 07/29/25 14:13 98.4 98.4 Labs/Diagnostic Data Labs Test 07/29/25 22:00 07/29/25 04:20 07/28/25 18:40 07/28/25 10:01 Range/Units Urine Color Yellow Yellow Urine Clarity Clear Clear Urine pH 6.0 5.0-9.0 Urine Specific [place] 1.021 1.001-1.035 Urine Protein 1+ H Negative Urine Ketones Negative Negative Urine Blood Negative Negative /uL Urine Nitrite Negative Negative Urine Bilirubin Negative Negative Urine Urobilinogen 4 H Negative mg/dL Urine Leukocyte Esterase 1+ Negative /uL Urine RBC 3 0 - 4 /hpf Urine Microscopic WBC 12 H 0-5 /HPF Urine Squamous Epithelial Cells Few <5 /hpf Urine Bacteria None seen None Seen /hpf Urine Glucose 1+ H Normal mg/dL White Blood Count 33.4 *H 4.4-10.8 10^3/uL Red Blood Count 3.02 L 4.0-5.20 10^6/uL Hemoglobin 9.8 L 12.2-16.2 g/dL Hematocrit 29.4 L 36.0-46.0 % Mean Corpuscular Volume 97.4 80.0-100.0 fL Mean Corpuscular Hemoglobin 32.5 H 28.0-32.0 pg Mean Corpuscular Hemoglobin Concent 33.4 32.0-36.0 g/dL Red Cell Distribution Width 19.8 H 11.8-14.3 % Platelet Count 109 L 140-450 10^3/uL Mean Platelet Volume 9.9 6.9-10.8 fL Neutrophils (%) (Auto) 37.0-80.0 % Lymphocytes (%) (Auto) 10.0-50.0 % Monocytes (%) (Auto) 0.0-12.0 % Basophils (%) (Auto) 0.0-2.0 % Neutrophils # (Auto) 1.6-8.6 10 ^3/uL Lymphocytes # (Auto) 0.4-5.4 10 ^3/uL Monocytes # (Auto) 0-1.3 10 ^3/uL Differential Total Cells Counted 100.0 100 Neutrophils % (Manual) 87 H 37.0-80.0 Band Neutrophils % (Manual) 2 Lymphocytes % (Manual) 5 L 10.0-50.0 Monocytes % (Manual) 6 0-12 Eosinophils % (Manual) 0 0-7 Basophils % (Manual) 0 0.0-2.0 Metamyelocytes % (manual) 0 Myelocytes % (Manual) 0 Promyelocytes % (Manual) 0 Blast Cells % (Manual) 0 Reactive Lymphocytes 0 Platelet Estimate Decreased Schistocytes Few Sodium Level 142 136-145 mmol/L Potassium Level 3.3 L 3.5-5.1 mmol/L Chloride Level 109 H 98-107 mmol/L Carbon Dioxide Level 20 20-31 mmol/L Anion Gap 13 5-15 Blood Urea Nitrogen 27 H 9-23 mg/dL Creatinine 1.63 H 0.550-1.02 mg/dL Glomerular Filtration Rate Calc 31 >90 mL/min BUN/Creatinine Ratio 16.6 10.0-20.0 Serum Glucose 97 74-106 mg/dL Calcium Level 8.3 L 8.7-10.4 mg/dL Phosphorus Level 2.6 2.4-5.1 mg/dL Magnesium Level 1.6 1.6-2.6 mg/dL Total Bilirubin 2.1 H 0.2-1.0 mg/dL Aspartate Amino Transferase (AST) 35 13-40 U/L Alanine Aminotransferase (ALT) 27 7-40 U/L Alkaline Phosphatase 314 H 46-116 U/L Total Protein 5.6 L 5.7-8.2 g/dL Albumin 2.7 L 3.2-4.8 g/dL Random Vancomycin Level 15.1 H 5-10 ug/mL Lactic Acid Level 1.7 0.4-2.0 mmol/L Amparo Cells Few Prothrombin Time 13.5 H 9.3-11.8 sec Prothrombin Time INR 1.31 H 0.9-1.15 Activated Partial Thromboplast Time 42.0 H 24.5-34.5 SEC Lipase 25 12-53 U/L Microbiology Date/Time Source Procedure Growth Status 07/28/25 11:10 Blood Blood Culture - Preliminary NO GROWTH AFTER 24 HOURS OF INCUBATION. 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
[2025-07-30] VITALS (9 sets, daily range): BP systolic 139–177; BP diastolic 74–114; PULSE 90–119; RESP 17–19; TEMP 97.6–97.9; O2SAT 97–100
[2025-07-30] MEDS ORDERED: DEXTROSE (50%) 50ML SYRG IV SCH
[2025-07-30] MEDS: ACCU-CHEK COMFORT CURVE STRIP VI SCH (00:29)
[2025-07-30] MEDS: InsuLIN REG 1unit/0.01ml Soln (100units/ml) SC SCH (00:29)
[2025-07-30 07:23] LABS: Hematocrit 29.1 % (36.0-46.0); Hemoglobin 9.4 g/dL (12.2-16.2); Mean Corpuscular Hemoglobin 32.1 pg (28.0-32.0); Mean Corpuscular Volume 99.3 fL (80.0-100.0)
[2025-07-30 07:40] LABS: Alanine Aminotransferase 21 U/L (7-40); Anion Gap 16 (5-15); BUN/Creatinine Ratio 18.9 (10.0-20.0); Magnesium 2.1 mg/dL (1.6-2.6); Potassium 4.8 mmol/L (3.5-5.1); Sodium 141 mmol/L (136-145); Total Protein 5.8 g/dL (5.7-8.2); Triglycerides 118 mg/dL (< 150)
[2025-07-30 07:42] LABS: Albumin 2.7 g/dL (3.2-4.8); Alkaline Phosphatase 265 U/L (46-116); Bilirubin, Total 1.3 mg/dL (0.2-1.0); Blood Urea Nitrogen 38 mg/dL (9-23); Calcium 8.3 mg/dL (8.7-10.4); Carbon Dioxide 14 mmol/L (20-31); Chloride 111 mmol/L (98-107); Glucose 252 mg/dL (74-106)
[2025-07-30 08:33] LABS: Smudge Cells 1 /100 WBC; Total Cells Counted 100.0 (100)
[2025-07-30] MEDS: PANTOPRAZOLE 40 MG/10 ML VIAL INJ IV SCH (09:31)
--- NOTE | 2025-07-30 11:25 | DVHPN2 ---
Progress Note Date Seen: Jul 30, 2025 Medical Necessity Reason Pt with a Central, PICC or Fol: Yes The following are medically ne: Quinn Catheter Reason for quinn catheter: Strict I&O Subjective Patient reports: No new complaints Review of Systems: HEENT:Normal, CVS:Normal, RESPIRATORY:Normal, GI:Normal, :Normal, MSK:Normal, NEURO:Normal Objective vital signs Vital Sign Date Time Temp Pulse Resp B/P (MAP) Pulse Ox O2 Delivery O2 Flow Rate FiO2 07/30/25 08:30 97.6 98 17 140/74 (96) 98 97.6 07/29/25 20:00 Nasal Cannula* 2 28 Total Intake and Output 07/29/25 07/29/25 07/30/25 15:00 23:00 07:00 Intake Total 100 ml 597.0 ml 0 ml Balance 100 ml 597.0 ml 0 ml medications Current Medications Medications Dose Ordered Sig/Keven Route Start Time Stop Time Status Last Admin Dose Admin Sodium Chloride 1,000 ml @ 60 mls/hr [id number] IV 07/28/25 12:30 07/29/25 21:50 60 MLS/HR Acetaminophen/ Hydrocodone Bitart 1 tab Q4HP PRN PO 07/28/25 12:30 07/28/25 17:53 1 TAB Ondansetron HCl 4 mg Q4HP PRN IV 07/28/25 12:30 Acetaminophen 650 mg Q6HP PRN PO 07/28/25 12:30 Nitroglycerin 0.4 mg Q5MINP PRN SL 07/28/25 14:00 Morphine Sulfate 2 mg Q30M PRN IV 07/28/25 14:00 Vancomycin HCl 0 ml @ 0 mls/hr UD IV 07/28/25 14:00 Hydromorphone HCl 0.5 mg Q4HPRN PRN IV 07/28/25 16:15 07/29/25 07:04 0.5 MG Amino Acids 0 ml @ 0 mls/hr PER PHARMACY IV 07/29/25 11:45 Cancel Pantoprazole Sodium 40 mg DAILY IV 07/30/25 10:00 07/30/25 09:31 40 MG Cefepime HCl 50 ml @ 12.5 mls/hr Q12HR IV 07/29/25 22:00 07/30/25 09:31 12.5 MLS/HR Diagnostic Test (Pha) 1 strip Q6HR 07/30/25 00:00 07/30/25 05:53 1 STRIP Insulin Human Regular FOLLOW SLIDING SCALE Q6HR SC 07/30/25 00:00 07/30/25 00:29 4 UNITS Dextrose 50 ml UD IV 07/30/25 00:00 Amino Acids/ Electrolytes/ Dextrose 1,000 ml @ 41 mls/hr DAILY@2200 IV 07/29/25 22:00 07/30/25 21:59 07/29/25 22:00 41 MLS/HR Amino Acids 0 ml @ 0 mls/hr PER PHARMACY IV 07/29/25 14:30 Fat Emulsion Intravenous 50 ml/ Sodium Acetate 40 meq/Multivitamins 10 ml/Chromium/ Copper/Manganese/ Zinc 1 ml/Amino Acids/Dextrose 781 ml @ 33 mls/hr [id number] IV 07/30/25 22:00 07/31/25 21:59 Examination: GENERAL:Normal, HEENT:Normal, NECK:Normal, LUNGS:Normal, CVS:Normal, ABDOMEN:Normal, ABDOMEN:Abnormal (gallbladder tube), MSK:Normal, SKIN:Normal, NEURO:Normal, :Normal laboratory and microbiology Laboratory Tests 07/30/25 06:24 Test 07/30/25 06:24 Range/Units Serum Glucose 252 H 74-106 mg/dL Microbiology Date/Time Source Procedure Growth Status 07/28/25 11:10 Blood Blood Culture - Preliminary NO GROWTH AFTER 24 HOURS OF INCUBATION. Resulted Problem List/Assessment/Plan Problem List/Assessment/Plan * acute florence with sepsis: iv antibiotics, surg eval, radiology consult- cholecystostomy tube, surg in am * s/p CVA. * Left internal carotid artery stenosis, status post angioplasty and stent. * Pancreatic cancer with metastases * Hypertension. * Diabetes mellitus: ssi * Pancreatic insufficiency. * Lupus. * Coronary artery disease with stent. * mod protein malnutrition: tpn * acute renal failure ?vasomotor nephropathy: ivf * hypokalemia; replace advance care planning- full code- time spent 19 mins Plan discussed with: Patient My Orders My Orders Orders - ELÍAS CYR MD Procedure Category Date Status Time Communication Order ORDERS 07/29/25 Transmitted 11:30 * Radiologist Consult CONS 07/29/25 Transmitted 11:51 * Surgical Consult CONS 07/29/25 Transmitted Pantoprazole PHA 07/30/25 In Process (Protonix) 10:00 Cefepime 2gm/50ml Ns PHA 07/29/25 In Process (Maxipime 2gm/50ml) 22:00 Chest Portable XY 07/29/25 Resulted 11:53 Percutaneous Cholangio XY 07/29/25 Resulted 12:15 Glucose Blood PHA 07/30/25 In Process (Accu-Chek Comfort 00:00 Insulin R (Human) PHA 07/30/25 In Process (Insulin R) 00:00 Dextrose 50% Syringe PHA 07/30/25 In Process 00:00 Amino Acid Infusion PHA 07/29/25 In Process In D10w (Clinimix 4. 22:00 * Dietary Consult CONS 07/29/25 Transmitted 13:36 Tpn Per Pharmacy DANIELITO 07/29/25 In Process 22:00 Mrsa Screen BERNARDINO 07/29/25 In Process 22:00 * Wound Consult CONS 07/29/25 Transmitted 23:19 Complete Blood Count LAB 07/31/25 Verified 06:00 Comprehensive LAB 07/31/25 Verified Metabolic Panel 06:00 Dietary Evaluation Review Recommendations by RD: Increase Calorie Intake, PPN/TPN Comments: Pt meets criteria of Severe Protein-Calorie Malnutrition in the setting of acute illness based on PO intake <50% estimated energy requirement >5 days, wt loss 13.6kg/20% in 1 year, moderate muscle wasting (religious & clavicle) and fat depletion (orbital & triceps). Nutrition Recommendation; 1) TPN per Pharmacy to supply [phone] kcal & 63-79 gm protein 2) Advance to soft diet as medically feasible 3) Monitor NPO status, lab values, weight trend, and I/O Expected Outcomes/Goals: To gain/maintain body weight Intake to meet >75% estimated needs GI symptoms to improve Fu 2-3 days Food and Nutrition Intake (Sev: <50% est energy req 5days Interpretation of weight loss: up to 20% in 1 year Body Fat Depletion (Severe): Mod to Severe Depletion Muscle Mass (Severe): Mod to Severe Depletion Fluid Accumulation (N/A): N/A Protein Calorie Malnutrition: Severe Is there a minimum of two crit: Yes Date of Service: Jul 30, 2025 Billing Provider: ELÍAS CYR MD Common Visit Codes: [id number] INP/OBS CARE(HIGH) Secondary Visit Codes: [id number] CARE PLAN 30 MINUTES ELÍAS CYR MD Jul 30, 2025 11:25
[2025-07-30 11:43] LABS: INR 1.16 (0.9-1.15); Partial Thromboplastin Time 35.2 SEC (24.5-34.5); Prothrombin Time 12.1 sec (9.3-11.8)
--- NOTE | 2025-07-30 12:57 | DVHPN2 ---
Progress Note - Dictate Date Seen: Jul 30, 2025 Medical Necessity Reason Pt with a Central, PICC or Fol: Yes The following are medically ne: Quinn Catheter Reason for quinn catheter: Strict I&O Subjective PT WITH SEVERE ABD PAIN LEUKOCYTOSIS ABD PAIN NAUSEA/ VOMITING SEVERE VOLUME DEPLETION HYPOKALEMIA HEMOPTYSIS ANEMIA CVA PANCREATIC CA S/P STENT ANEMIA GALLSTONES CAROTID STENOSIS HX OF CVA LUNG MASS S/P BOPSY RA CAROTID STENOSIS MRI 1. Acute / recent small infarct in the left yost radiata. 2. Evolving subacute to chronic infarct in the right parietal lobe which was present as an acute infarct from MRI brain dated 10/10/2024. 3. Generalized cerebral volume loss and moderate chronic microvascular ischemic change. CAROTID U/S 1. stenosis noted in the right carotid system.50-69% stenosis in the right internal carotid. 2. 50-69% stenosis of the left vital signs Vital Sign Date Time Temp Pulse Resp B/P (MAP) Pulse Ox O2 Delivery O2 Flow Rate FiO2 07/30/25 08:30 97.6 98 17 140/74 (96) 98 97.6 07/30/25 08:00 Nasal Cannula* 2 28 Total Intake and Output 07/29/25 07/29/25 07/30/25 15:00 23:00 07:00 Intake Total 100 ml 597.0 ml 0 ml Balance 100 ml 597.0 ml 0 ml medications Current Medications Medications Dose Ordered Sig/Keven Route Start Time Stop Time Status Last Admin Dose Admin Sodium Chloride 1,000 ml @ 60 mls/hr [id number] IV 07/28/25 12:30 07/29/25 21:50 60 MLS/HR Acetaminophen/ Hydrocodone Bitart 1 tab Q4HP PRN PO 07/28/25 12:30 07/28/25 17:53 1 TAB Ondansetron HCl 4 mg Q4HP PRN IV 07/28/25 12:30 Acetaminophen 650 mg Q6HP PRN PO 07/28/25 12:30 Nitroglycerin 0.4 mg Q5MINP PRN SL 07/28/25 14:00 Morphine Sulfate 2 mg Q30M PRN IV 07/28/25 14:00 Vancomycin HCl 0 ml @ 0 mls/hr UD IV 07/28/25 14:00 Hydromorphone HCl 0.5 mg Q4HPRN PRN IV 07/28/25 16:15 07/29/25 07:04 0.5 MG Amino Acids 0 ml @ 0 mls/hr PER PHARMACY IV 07/29/25 11:45 Cancel Pantoprazole Sodium 40 mg DAILY IV 07/30/25 10:00 07/30/25 09:31 40 MG Cefepime HCl 50 ml @ 12.5 mls/hr Q12HR IV 07/29/25 22:00 07/30/25 09:31 12.5 MLS/HR Diagnostic Test (Pha) 1 strip Q6HR 07/30/25 00:00 07/30/25 11:49 1 STRIP Insulin Human Regular FOLLOW SLIDING SCALE Q6HR SC 07/30/25 00:00 07/30/25 12:08 16 UNITS Dextrose 50 ml UD IV 07/30/25 00:00 Amino Acids/ Electrolytes/ Dextrose 1,000 ml @ 41 mls/hr DAILY@2200 IV 07/29/25 22:00 07/30/25 21:59 07/29/25 22:00 41 MLS/HR Amino Acids 0 ml @ 0 mls/hr PER PHARMACY IV 07/29/25 14:30 Fat Emulsion Intravenous 50 ml/ Sodium Acetate 40 meq/Multivitamins 10 ml/Chromium/ Copper/Manganese/ Zinc 1 ml/Amino Acids/Dextrose 781 ml @ 33 mls/hr [id number] IV 07/30/25 22:00 07/31/25 21:59 laboratory and microbiology Laboratory Tests 07/30/25 06:24 Test 07/30/25 06:24 Range/Units Serum Glucose 252 H 74-106 mg/dL Problem List ACUTE CHOLECYSTITIS SEVERE ABD PAIN LEUKOCYTOSIS ABD PAIN NAUSEA/ VOMITING SEVERE VOLUME DEPLETION HYPOKALEMIA HEMOPTYSIS ANEMIA CVA PANCREATIC CA S/P STENT ANEMIA GALLSTONES CAROTID STENOSIS HX OF CVA LUNG MASS S/P BOPSY RA CAROTID STENOSIS MRI 1. Acute / recent small infarct in the left yost radiata. 2. Evolving subacute to chronic infarct in the right parietal lobe which was present as an acute infarct from MRI brain dated 10/10/2024. 3. Generalized cerebral volume loss and moderate chronic microvascular ischemic change. CAROTID U/S 1. stenosis noted in the right carotid system.50-69% stenosis in the right internal carotid. 2. 50-69% stenosis of the left Assessment/Plan ABX IV FLUID NPO START TPN DIG 0.25 MG IVP X 2 CHOLECYSTOSTOMY SURGERY CONSULT CONT LEUKOCYTOSIS WORSENING RENAL FUNCTION TPN REDUCE PROTEIN/ AA IN TPN Dietary Evaluation Review Recommendations by RD: Increase Calorie Intake, PPN/TPN Comments: Pt meets criteria of Severe Protein-Calorie Malnutrition in the setting of acute illness based on PO intake <50% estimated energy requirement >5 days, wt loss 13.6kg/20% in 1 year, moderate muscle wasting (alevism & clavicle) and fat depletion (orbital & triceps). Nutrition Recommendation; 1) TPN per Pharmacy to supply [phone] kcal & 63-79 gm protein 2) Advance to soft diet as medically feasible 3) Monitor NPO status, lab values, weight trend, and I/O Expected Outcomes/Goals: To gain/maintain body weight Intake to meet >75% estimated needs GI symptoms to improve Fu 2-3 days Food and Nutrition Intake (Sev: <50% est energy req 5days Interpretation of weight loss: up to 20% in 1 year Body Fat Depletion (Severe): Mod to Severe Depletion Muscle Mass (Severe): Mod to Severe Depletion Fluid Accumulation (N/A): N/A Protein Calorie Malnutrition: Severe Is there a minimum of two crit: Yes Plan discussed with: Patient, Spouse Critical Care Time(min): 35 JOSE ANGEL HALE MD Jul 30, 2025 12:57
[2025-07-30] MEDS: METOPROLOL TARTRATE 1MG/1ML-5ML VIAL IV ONE (18:11)
[2025-07-30] MEDS: TPN PER PHARMACY IV NR (23:17)
[2025-07-31] MEDS: LABETALOL HCL 20 MG/4 ML VL IV ONE (00:31)
[2025-07-31 01:00] VITALS: BP 113/78; PULSE 107; RESP 20; TEMP 97.5; O2SAT 98
[2025-07-31 05:00] VITALS: BP 215/116; PULSE 114; RESP 19; TEMP 97.8; O2SAT 94
[2025-07-31] MEDS: dilTIAZem 25 MG/5 ML VIAL IV ONE (06:03)
[2025-07-31 06:40] VITALS: BP 151/95; PULSE 101
[2025-07-31 07:16] LABS: Alanine Aminotransferase 23 U/L (7-40); Anion Gap 14 (5-15); BUN/Creatinine Ratio 33.9 (10.0-20.0); Magnesium 1.8 mg/dL (1.6-2.6); Sodium 142 mmol/L (136-145)
--- NOTE | 2025-07-31 07:16 | DVHPN2 ---
Progress Note - Dictate Date Seen: Jul 31, 2025 Medical Necessity Reason Pt with a Central, PICC or Fol: Yes The following are medically ne: Quinn Catheter Reason for quinn catheter: Strict I&O Subjective PT WITH SEVERE ABD PAIN LEUKOCYTOSIS ABD PAIN NAUSEA/ VOMITING SEVERE VOLUME DEPLETION HYPOKALEMIA HEMOPTYSIS ANEMIA CVA PANCREATIC CA S/P STENT ANEMIA GALLSTONES CAROTID STENOSIS HX OF CVA LUNG MASS S/P BOPSY RA CAROTID STENOSIS MRI 1. Acute / recent small infarct in the left yost radiata. 2. Evolving subacute to chronic infarct in the right parietal lobe which was present as an acute infarct from MRI brain dated 10/10/2024. 3. Generalized cerebral volume loss and moderate chronic microvascular ischemic change. CAROTID U/S 1. stenosis noted in the right carotid system.50-69% stenosis in the right internal carotid. 2. 50-69% stenosis of the left vital signs Vital Sign Date Time Temp Pulse Resp B/P (MAP) Pulse Ox O2 Delivery O2 Flow Rate FiO2 07/31/25 05:00 97.8 114 19 215/116 (149) 94 97.8 07/30/25 20:00 Room Air* 0 21 Total Intake and Output 07/30/25 07/30/25 07/31/25 15:00 23:00 07:00 Intake Total 50 ml 0 ml 0 ml Balance 50 ml 0 ml 0 ml medications Current Medications Medications Dose Ordered Sig/Keven Route Start Time Stop Time Status Last Admin Dose Admin Sodium Chloride 1,000 ml @ 60 mls/hr [id number] IV 07/28/25 12:30 07/29/25 21:50 60 MLS/HR Acetaminophen/ Hydrocodone Bitart 1 tab Q4HP PRN PO 07/28/25 12:30 07/28/25 17:53 1 TAB Ondansetron HCl 4 mg Q4HP PRN IV 07/28/25 12:30 Acetaminophen 650 mg Q6HP PRN PO 07/28/25 12:30 Nitroglycerin 0.4 mg Q5MINP PRN SL 07/28/25 14:00 Morphine Sulfate 2 mg Q30M PRN IV 07/28/25 14:00 Vancomycin HCl 0 ml @ 0 mls/hr UD IV 07/28/25 14:00 Hydromorphone HCl 0.5 mg Q4HPRN PRN IV 07/28/25 16:15 07/29/25 07:04 0.5 MG Amino Acids 0 ml @ 0 mls/hr PER PHARMACY IV 07/29/25 11:45 Cancel Pantoprazole Sodium 40 mg DAILY IV 07/30/25 10:00 07/30/25 09:31 40 MG Cefepime HCl 50 ml @ 12.5 mls/hr Q12HR IV 07/29/25 22:00 07/30/25 23:17 12.5 MLS/HR Diagnostic Test (Pha) 1 strip Q6HR 07/30/25 00:00 07/31/25 06:24 1 STRIP Insulin Human Regular FOLLOW SLIDING SCALE Q6HR SC 07/30/25 00:00 07/31/25 06:23 12 UNITS Dextrose 50 ml UD IV 07/30/25 00:00 Amino Acids 0 ml @ 0 mls/hr PER PHARMACY IV 07/29/25 14:30 Fat Emulsion Intravenous 50 ml/ Sodium Acetate 40 meq/Multivitamins 10 ml/Chromium/ Copper/Manganese/ Zinc 1 ml/Amino Acids/Dextrose 781 ml @ 33 mls/hr [id number] IV 07/30/25 22:00 07/31/25 21:59 07/30/25 23:17 33 MLS/HR laboratory and microbiology Test 07/31/25 06:23 Range/Units Serum Glucose Pending Problem List ACUTE CHOLECYSTITIS SEVERE ABD PAIN LEUKOCYTOSIS ABD PAIN NAUSEA/ VOMITING SEVERE VOLUME DEPLETION HYPOKALEMIA HEMOPTYSIS ANEMIA CVA PANCREATIC CA S/P STENT ANEMIA GALLSTONES CAROTID STENOSIS HX OF CVA LUNG MASS S/P BOPSY RA CAROTID STENOSIS MRI 1. Acute / recent small infarct in the left yost radiata. 2. Evolving subacute to chronic infarct in the right parietal lobe which was present as an acute infarct from MRI brain dated 10/10/2024. 3. Generalized cerebral volume loss and moderate chronic microvascular ischemic change. CAROTID U/S 1. stenosis noted in the right carotid system.50-69% stenosis in the right internal carotid. 2. 50-69% stenosis of the left Assessment/Plan ABX IV FLUID NPO START TPN DIG 0.25 MG IVP X 2 CHOLECYSTOSTOMY SURGERY CONSULT CONT LEUKOCYTOSIS WORSENING RENAL FUNCTION TPN REDUCE PROTEIN/ AA IN TPN METABOLIC ENCEPHALOPATHY POOR PROGNOSIS Dietary Evaluation Review Recommendations by RD: Increase Calorie Intake, PPN/TPN Comments: Pt meets criteria of Severe Protein-Calorie Malnutrition in the setting of acute illness based on PO intake <50% estimated energy requirement >5 days, wt loss 13.6kg/20% in 1 year, moderate muscle wasting (baptism & clavicle) and fat depletion (orbital & triceps). Nutrition Recommendation; 1) TPN per Pharmacy to supply [phone] kcal & 63-79 gm protein 2) Advance to soft diet as medically feasible 3) Monitor NPO status, lab values, weight trend, and I/O Expected Outcomes/Goals: To gain/maintain body weight Intake to meet >75% estimated needs GI symptoms to improve Fu 2-3 days Food and Nutrition Intake (Sev: <50% est energy req 5days Interpretation of weight loss: up to 20% in 1 year Body Fat Depletion (Severe): Mod to Severe Depletion Muscle Mass (Severe): Mod to Severe Depletion Fluid Accumulation (N/A): N/A Protein Calorie Malnutrition: Severe Is there a minimum of two crit: Yes Plan discussed with: Patient Critical Care Time(min): 5 JOSE ANGEL HALE MD Jul 31, 2025 07:16
[2025-07-31 07:20] LABS: Blood Urea Nitrogen 61 mg/dL (9-23); Carbon Dioxide 17 mmol/L (20-31); Chloride 111 mmol/L (98-107); Glucose 309 mg/dL (74-106); Potassium 3.1 mmol/L (3.5-5.1)
[2025-07-31 07:21] LABS: Albumin 2.3 g/dL (3.2-4.8); Alkaline Phosphatase 260 U/L (46-116); Bilirubin, Total 2.3 mg/dL (0.2-1.0); Calcium 8.1 mg/dL (8.7-10.4); Total Protein 5.5 g/dL (5.7-8.2)
[2025-07-31 08:00] VITALS: PULSE 95; O2SAT 98
[2025-07-31 09:00] VITALS: BP 172/105; PULSE 105; RESP 20; TEMP 97.5; O2SAT 98
[2025-07-31 09:08] LABS: Hematocrit 30.9 % (36.0-46.0); Hemoglobin 10.0 g/dL (12.2-16.2)
[2025-07-31 09:11] LABS: Mean Corpuscular Hemoglobin 31.9 pg (28.0-32.0); Mean Corpuscular Volume 98.3 fL (80.0-100.0)
--- NOTE | 2025-07-31 09:39 | ECG ---
[facility] Test Date: 2025-07-29 Test Time: 08:40:15 Pat Name: JEFERSON RICARDO Department: [facility] ED Patient ID: [facility]-[id number] Room: [address] [place] [address] Gender: F Licensed [employer]: chencho : 1945 Requested By: TREVER NDIAYE Order Number: [id number] Reading MD: Mason Hutchison Measurements Intervals [place] Rate: 174 P: 5 KS: 204 QRS: -24 QRSD: 92 T: -1 QT: 298 QTc: 507 Interpretive Statements Supraventricular tachycardia Borderline left axis deviation Repolarization abnormality, prob rate related Electronically Signed On 08-02-2025 18:39:00 PDT by Mason Hutchison Please click the below link to view image of tracing.
[2025-07-31 10:56] LABS: Total Cells Counted 100.0 (100)
[2025-07-31 10:57] LABS: Anisocytosis Slight
[2025-07-31] MEDS: POTASSIUM PHOSPHATE 22 MEQ in SODIUM CHL 0.9% 100 ML IV ONE (11:43)
[2025-07-31] MEDS ORDERED: LIDOCAINE W/ EPINEPHRINE 1% 20ML VIAL ONE (12:11)
[2025-07-31] MEDS ORDERED: BUPIVACAINE 0.5% P/F INJ 10 ML VIAL ONE (12:11)
[2025-07-31] MEDS ORDERED: MIDAZOLAM HCL 2MG/2ML 2ml VIAL (1mg/ml) ONE (12:16)
[2025-07-31] MEDS ORDERED: LIDOCAINE HCL 2% TOP JELLY 5ML TOP ONE (12:16)
[2025-07-31] MEDS ORDERED: fentaNYL CITRATE 5 ML ONE (12:16)
[2025-07-31] MEDS ORDERED: ROCURONIUM 10MG/ML 10ML VIAL IV ONE (12:16)
[2025-07-31] MEDS ORDERED: LIDOCAINE 1% INJ PF 5ML AMP ONE (12:16)
[2025-07-31] MEDS ORDERED: HYDROmorphone HCL 2 MG/ML VL/or syr ONE (12:16)
[2025-07-31] MEDS ORDERED: SODIUM CHLORIDE LOCK 20 ML ONE (12:16)
[2025-07-31] MEDS ORDERED: NOREPINEPHRINE 8 MG/250ML KIT 250 ML IV ONE (12:22)
--- NOTE | 2025-07-31 12:24 | DVHINCON2 ---
Date of service: Jul 31, 2025 Reason for Consultation cholecystitis History of Present Illness HPI 79 year old female presented to the Er with complaint of right upper quadrant pain. Non radiating pain 07/25. associated symptoms include nausea and vomiting. During her admission a cholecystostomy drain was placed and purulent treva was drained. patient continue to have an elevated WBC of 30. Home Meds Active Scripts Clopidogrel Bisulfate (Plavix) 75 Mg Tab, 75 MG PO DAILY for 30 Days, #30 TAB 3 Refills Prov:ELÍAS CYR MD 02/19/25 Cefdinir (Cefdinir) 300 Mg Cap, 1 CAP PO BID for 7 Days, #14 CAP Prov:ELÍAS CYR MD 12/11/24 Ezetimibe (Zetia) 10 Mg Tab, 10 MG PO DAILY for 30 Days, #30 TAB 3 Refills Prov:ELÍAS CYR MD 10/30/24 Aspirin (ASPIRIN 81) 81 Mg Tab, 81 MG PO DAILY for 30 Days, #30 TAB 3 Refills Prov:ELÍAS CYR MD 10/30/24 Reported Medications Megestrol Acetate (Megace) 20 Mg Tb, 1 TAB PO DAILY 07/07/25 Clonidine Hydrochloride (Clonidine Hcl) 0.1 Mg Tab, 1 TAB PO BID 07/07/25 Senna (Senokot) 8.6 Mg Tab, 1 TAB PO BID, #40 TAB 02/17/25 Pancreatic Enzymes (Pancreaze) 4,200 Unit Cap, 4200 UNIT PO, CAP 12/09/24 Hydroxychloroquine Sulfate (Hydroxychloroquine Sulfat) 200 Mg Tab, 1 TAB DAILY 10/24/24 Potassium Chloride (Potassium Chloride ER) 20 Meq Tab, 1 TAB PO DAILY 10/24/24 Folic Acid (Folic Acid) 1 Mg Tab, 1 TAB PO DAILY 10/24/24 Metoprolol Succinate (Metoprolol Succinate Er) 50 Mg Tab, 1 TAB PO DAILY 10/24/24 Magnesium Chloride (Slow-Mag) Tab, 2 TAB PO DAILY, TAB 10/08/24 Linseed Oil (Flax Seed Oil) 1,000 Mg Cap, 1000 MG PO, CAP 10/08/24 Cholecalciferol (VITAMIN D3) 2,000 Unit Tab, 1 TAB PO DAILY, #30 TAB 5 Refills 10/08/24 Ibuprofen Micronized (MOTRIN TABLET) 600 Mg Tb, 600 MG PO TID, #40 TAB *Black box warning-NSAIDS can increase risk of MN & hypertension, GI irritation, ulceration, bleed, perferation. Do not use post cardiac surgery. Use short duration/lowest effective dose. 10/08/24 Past Medical History Cardiac: AFIB, HTN Central Nervous System: CVA Hemotology/Oncology: Anemia NOS Musculoskeletal: Osteoarthritis Others pancreatic cancer Patient Family History: Cardiovascular disease G8 MOTHER FH: breast cancer 19 CHILD FH: cancer G8 FATHER Smoker: No Hx (Negative) Alocohol: None Drugs: None Lives with: With family Review of Systems Comments unable to obtain from patient H&P Exam Vital Signs Vital Signs Date Time Temp Pulse Resp B/P (MAP) Pulse Ox O2 Delivery O2 Flow Rate FiO2 07/31/25 09:00 97.5 105 20 172/105 (127) 98 97.5 07/31/25 08:00 Room Air* 0 21 General Appeara: Cachetic, Mild distress Head Exam: Normal inspection Neck Exam: Normal inspection Cardiovascular/Chest: Normal inspection Abdominal Pain Onset Location: RUQ Labs/Xrays Labs Test 07/31/25 10:59 07/31/25 08:43 07/31/25 06:23 07/30/25 10:50 Range/Units POC Glucose 260 H 70-106 mg/dl White Blood Count 30.0 H 4.4-10.8 10^3/uL Red Blood Count 3.15 L 4.0-5.20 10^6/uL Hemoglobin 10.0 L 12.2-16.2 g/dL Hematocrit 30.9 L 36.0-46.0 % Mean Corpuscular Volume 98.3 80.0-100.0 fL Mean Corpuscular Hemoglobin 31.9 28.0-32.0 pg Mean Corpuscular Hemoglobin Concent 32.4 32.0-36.0 g/dL Red Cell Distribution Width 21.1 H 11.8-14.3 % Platelet Count 57 L 140-450 10^3/uL Mean Platelet Volume 8.7 6.9-10.8 fL Neutrophils (%) (Auto) 37.0-80.0 % Lymphocytes (%) (Auto) 10.0-50.0 % Monocytes (%) (Auto) 0.0-12.0 % Basophils (%) (Auto) 0.0-2.0 % Neutrophils # (Auto) 1.6-8.6 10 ^3/uL Lymphocytes # (Auto) 0.4-5.4 10 ^3/uL Monocytes # (Auto) 0-1.3 10 ^3/uL Differential Total Cells Counted 100.0 100 Neutrophils % (Manual) 57 37.0-80.0 Band Neutrophils % (Manual) 14 Lymphocytes % (Manual) 6 L 10.0-50.0 Monocytes % (Manual) 13 H 0-12 Eosinophils % (Manual) 0 0-7 Basophils % (Manual) 0 0.0-2.0 Metamyelocytes % (manual) 3 Myelocytes % (Manual) 7 Promyelocytes % (Manual) 0 Blast Cells % (Manual) 0 Reactive Lymphocytes 0 Platelet Estimate Decreased Large Platelets Few Anisocytosis (manual) Slight Target Cells Few Schistocytes Few Sodium Level 142 136-145 mmol/L Potassium Level 3.1 L 3.5-5.1 mmol/L Chloride Level 111 H 98-107 mmol/L Carbon Dioxide Level 17 L 20-31 mmol/L Anion Gap 14 5-15 Blood Urea Nitrogen 61 #H 9-23 mg/dL Creatinine 1.80 H 0.550-1.02 mg/dL Glomerular Filtration Rate Calc 28 >90 mL/min BUN/Creatinine Ratio 33.9 H 10.0-20.0 Serum Glucose 309 H 74-106 mg/dL Calcium Level 8.1 L 8.7-10.4 mg/dL Phosphorus Level 2.2 L 2.4-5.1 mg/dL Magnesium Level 1.8 1.6-2.6 mg/dL Total Bilirubin 2.3 H 0.2-1.0 mg/dL Aspartate Amino Transferase (AST) 96 H 13-40 U/L Alanine Aminotransferase (ALT) 23 7-40 U/L Alkaline Phosphatase 260 H 46-116 U/L Total Protein 5.5 L 5.7-8.2 g/dL Albumin 2.3 L 3.2-4.8 g/dL Random Vancomycin Level 15.9 H 5-10 ug/mL Prothrombin Time 12.1 H 9.3-11.8 sec Prothrombin Time INR 1.16 H 0.9-1.15 Activated Partial Thromboplast Time 35.2 H 24.5-34.5 SEC Test 07/30/25 06:24 07/29/25 22:00 07/28/25 18:40 07/28/25 10:01 Range/Units Smudge Cells 1 /100 WBC Triglycerides Level 118 < 150 mg/dL Urine Color Yellow Yellow Urine Clarity Clear Clear Urine pH 6.0 5.0-9.0 Urine Specific Ryder 1.021 1.001-1.035 Urine Protein 1+ H Negative Urine Ketones Negative Negative Urine Blood Negative Negative /uL Urine Nitrite Negative Negative Urine Bilirubin Negative Negative Urine Urobilinogen 4 H Negative mg/dL Urine Leukocyte Esterase 1+ Negative /uL Urine RBC 3 0 - 4 /hpf Urine Microscopic WBC 12 H 0-5 /HPF Urine Squamous Epithelial Cells Few <5 /hpf Urine Bacteria None seen None Seen /hpf Urine Glucose 1+ H Normal mg/dL Lactic Acid Level 1.7 0.4-2.0 mmol/L Amparo Cells Few Lipase 25 12-53 U/L Microbiology Date/Time Source Procedure Growth Status 07/29/25 22:00 Nose MRSA Screen - Final Complete 07/28/25 11:10 Blood Blood Culture - Preliminary NO GROWTH AFTER 72 HOURS OF INCUBATION. Resulted Assessment/Plan Problem List: (1) Cholecystitis (2) Cholelithiasis Plan Assessment cholecystostomy tube with purulent drainage of bile elevated WBC 30 , elevated bili 2.3 right upper quadrant tender to palpation operation risks and complications explained to daughter by Dr. Robles in great detail Plan: Laparoscopic possibly open cholecystectomy Plan discussed with: Daughter Visit Coding Surgery Date of Service if different f: Jul 31, 2025 Billing Provider: CARMELO ROBLES MD Surgery Visit Codes: 81324 - INP CONSULT <110 MIN EDILMA PAN NP Jul 31, 2025 12:24
--- NOTE | 2025-07-31 12:27 | DVHPN2 ---
Progress Note Date Seen: Jul 31, 2025 Medical Necessity Reason Pt with a Central, PICC or Fol: Yes The following are medically ne: Quinn Catheter Reason for quinn catheter: Strict I&O Subjective Patient reports: No new complaints Review of Systems: HEENT:Normal, CVS:Normal, RESPIRATORY:Normal, GI:Normal, :Normal, MSK:Normal, NEURO:Normal Objective vital signs Vital Sign Date Time Temp Pulse Resp B/P (MAP) Pulse Ox O2 Delivery O2 Flow Rate FiO2 07/31/25 09:00 97.5 105 20 172/105 (127) 98 97.5 07/31/25 08:00 Room Air* 0 21 Total Intake and Output 07/30/25 07/30/25 07/31/25 15:00 23:00 07:00 Intake Total 50 ml 0 ml 400 ml Balance 50 ml 0 ml 400 ml medications Current Medications Medications Dose Ordered Sig/Keven Route Start Time Stop Time Status Last Admin Dose Admin Sodium Chloride 1,000 ml @ 60 mls/hr [id number] IV 07/28/25 12:30 07/29/25 21:50 60 MLS/HR Acetaminophen/ Hydrocodone Bitart 1 tab Q4HP PRN PO 07/28/25 12:30 07/28/25 17:53 1 TAB Ondansetron HCl 4 mg Q4HP PRN IV 07/28/25 12:30 Acetaminophen 650 mg Q6HP PRN PO 07/28/25 12:30 Nitroglycerin 0.4 mg Q5MINP PRN SL 07/28/25 14:00 Morphine Sulfate 2 mg Q30M PRN IV 07/28/25 14:00 Vancomycin HCl 0 ml @ 0 mls/hr UD IV 07/28/25 14:00 Hydromorphone HCl 0.5 mg Q4HPRN PRN IV 07/28/25 16:15 07/29/25 07:04 0.5 MG Amino Acids 0 ml @ 0 mls/hr PER PHARMACY IV 07/29/25 11:45 Cancel Pantoprazole Sodium 40 mg DAILY IV 07/30/25 10:00 07/31/25 10:00 40 MG Cefepime HCl 50 ml @ 12.5 mls/hr Q12HR IV 07/29/25 22:00 07/31/25 10:02 12.5 MLS/HR Diagnostic Test (Pha) 1 strip Q6HR 07/30/25 00:00 07/31/25 12:09 1 STRIP Insulin Human Regular FOLLOW SLIDING SCALE Q6HR SC 07/30/25 00:00 07/31/25 12:18 12 UNITS Dextrose 50 ml UD IV 07/30/25 00:00 Amino Acids 0 ml @ 0 mls/hr PER PHARMACY IV 07/29/25 14:30 Fat Emulsion Intravenous 50 ml/ Sodium Acetate 40 meq/Multivitamins 10 ml/Chromium/ Copper/Manganese/ Zinc 1 ml/Amino Acids/Dextrose 781 ml @ 33 mls/hr [id number] IV 07/30/25 22:00 07/31/25 21:59 07/30/25 23:17 33 MLS/HR Fat Emulsion Intravenous 100 ml/Sodium Acetate 20 meq/Potassium Acetate 40 meq/ Magnesium Sulfate 8 meq/ Multivitamins 10 ml/Chromium/ Copper/Manganese/ Zinc 1 ml/Insulin Human Regular 10 units/Amino Acids/ Dextrose 893.1 ml @ 37 mls/hr Q24H9M IV 07/31/25 22:00 08/01/25 21:59 Examination: GENERAL:Normal, HEENT:Normal, NECK:Normal, LUNGS:Normal, CVS:Normal, ABDOMEN:Normal, ABDOMEN:Abnormal (GALLBLADDER TUBE+), MSK:Normal, SKIN:Normal, NEURO:Normal, :Normal laboratory and microbiology Laboratory Tests 07/31/25 08:43 07/31/25 06:23 Test 07/31/25 06:23 Range/Units Serum Glucose 309 H 74-106 mg/dL Microbiology Date/Time Source Procedure Growth Status 07/29/25 22:00 Nose MRSA Screen - Final Complete 07/28/25 11:10 Blood Blood Culture - Preliminary NO GROWTH AFTER 72 HOURS OF INCUBATION. Resulted Problem List/Assessment/Plan Problem List/Assessment/Plan * acute [place] with sepsis: iv antibiotics, radiology consult-cholecystostomy tube, surg today * s/p CVA. * Left internal carotid artery stenosis, status post angioplasty and stent. * Pancreatic cancer with metastases * Hypertension. * Diabetes mellitus: ssi * Pancreatic insufficiency. * Lupus. * Coronary artery disease with stent. * mod protein malnutrition: tpn * acute renal failure ?vasomotor nephropathy: ivf * hypokalemia; replace dw -high risk for surgery advance care planning- full code- time spent 19 mins Plan discussed with: Patient, Spouse, Daughter My Orders My Orders Orders - ELÍAS CYR MD Procedure Category Date Status Time Complete Blood Count LAB 08/01/25 Verified 06:00 Comprehensive LAB 08/01/25 Verified Metabolic Panel 06:00 Chest Portable XY 08/01/25 Logged 06:00 Labetalol Hcl PHA 07/31/25 Verified (Labetalol Hcl) 12:30 Dietary Evaluation Review Recommendations by RD: Increase Calorie Intake, PPN/TPN Comments: Pt meets criteria of Severe Protein-Calorie Malnutrition in the setting of acute illness based on PO intake <50% estimated energy requirement >5 days, wt loss 13.6kg/20% in 1 year, moderate muscle wasting (anabaptism & clavicle) and fat depletion (orbital & triceps). Nutrition Recommendation; 1) TPN per Pharmacy to supply [phone] kcal & 63-79 gm protein 2) Advance to soft diet as medically feasible 3) Monitor NPO status, lab values, weight trend, and I/O Expected Outcomes/Goals: To gain/maintain body weight Intake to meet >75% estimated needs GI symptoms to improve Fu 2-3 days Food and Nutrition Intake (Sev: <50% est energy req 5days Interpretation of weight loss: up to 20% in 1 year Body Fat Depletion (Severe): Mod to Severe Depletion Muscle Mass (Severe): Mod to Severe Depletion Fluid Accumulation (N/A): N/A Protein Calorie Malnutrition: Severe Is there a minimum of two crit: Yes Date of Service: Jul 31, 2025 Billing Provider: ELÍAS CYR MD Common Visit Codes: [id number] INP/OBS CARE(HIGH) ELÍAS CYR MD Jul 31, 2025 12:27
[2025-07-31] MEDS ORDERED: LABETALOL HCL 20 MG/4 ML VL IV PRN (12:30)
[2025-07-31 13:00] VITALS: BP 128/68; PULSE 115; RESP 20; TEMP 97.5; O2SAT 98
--- NOTE | 2025-07-31 13:03 | DVHPN2 ---
Progress Note Date Seen: Jul 31, 2025 Medical Necessity Reason Pt with a Central, PICC or Fol: Yes The following are medically ne: Quinn Catheter Reason for quinn catheter: Strict I&O Objective vital signs Vital Sign Date Time Temp Pulse Resp B/P (MAP) Pulse Ox O2 Delivery O2 Flow Rate FiO2 07/31/25 09:00 97.5 105 20 172/105 (127) 98 97.5 07/31/25 08:00 Room Air* 0 21 Total Intake and Output 07/30/25 07/30/25 07/31/25 15:00 23:00 07:00 Intake Total 50 ml 0 ml 400 ml Balance 50 ml 0 ml 400 ml medications Current Medications Medications Dose Ordered Sig/Keven Route Start Time Stop Time Status Last Admin Dose Admin Sodium Chloride 1,000 ml @ 60 mls/hr [id number] IV 07/28/25 12:30 07/29/25 21:50 60 MLS/HR Acetaminophen/ Hydrocodone Bitart 1 tab Q4HP PRN PO 07/28/25 12:30 07/28/25 17:53 1 TAB Ondansetron HCl 4 mg Q4HP PRN IV 07/28/25 12:30 Acetaminophen 650 mg Q6HP PRN PO 07/28/25 12:30 Nitroglycerin 0.4 mg Q5MINP PRN SL 07/28/25 14:00 Morphine Sulfate 2 mg Q30M PRN IV 07/28/25 14:00 Vancomycin HCl 0 ml @ 0 mls/hr UD IV 07/28/25 14:00 Hydromorphone HCl 0.5 mg Q4HPRN PRN IV 07/28/25 16:15 07/29/25 07:04 0.5 MG Amino Acids 0 ml @ 0 mls/hr PER PHARMACY IV 07/29/25 11:45 Cancel Pantoprazole Sodium 40 mg DAILY IV 07/30/25 10:00 07/31/25 10:00 40 MG Cefepime HCl 50 ml @ 12.5 mls/hr Q12HR IV 07/29/25 22:00 07/31/25 10:02 12.5 MLS/HR Diagnostic Test (Pha) 1 strip Q6HR 07/30/25 00:00 07/31/25 12:09 1 STRIP Insulin Human Regular FOLLOW SLIDING SCALE Q6HR SC 07/30/25 00:00 07/31/25 12:18 12 UNITS Dextrose 50 ml UD IV 07/30/25 00:00 Amino Acids 0 ml @ 0 mls/hr PER PHARMACY IV 07/29/25 14:30 Fat Emulsion Intravenous 50 ml/ Sodium Acetate 40 meq/Multivitamins 10 ml/Chromium/ Copper/Manganese/ Zinc 1 ml/Amino Acids/Dextrose 781 ml @ 33 mls/hr [id number] IV 07/30/25 22:00 07/31/25 21:59 07/30/25 23:17 33 MLS/HR Fat Emulsion Intravenous 100 ml/Sodium Acetate 20 meq/Potassium Acetate 40 meq/ Magnesium Sulfate 8 meq/ Multivitamins 10 ml/Chromium/ Copper/Manganese/ Zinc 1 ml/Insulin Human Regular 10 units/Amino Acids/ Dextrose 893.1 ml @ 37 mls/hr Q24H9M IV 07/31/25 22:00 08/01/25 21:59 Labetalol HCl 10 mg Q4HP PRN IV 07/31/25 12:30 UNV laboratory and microbiology Laboratory Tests 07/31/25 08:43 07/31/25 06:23 Test 07/31/25 06:23 Range/Units Serum Glucose 309 H 74-106 mg/dL Problem List/Assessment/Plan Problem List/Assessment/Plan 07/31/25 patient obtunded and confused, which according to daughter and at bedside is a change in her condition ,wbc is going up again, i feel her sepsis is an indication for an emergency operation despite the very high risks that she entails. her overall condition is very frail and she is at high risk for perioperative cardiac complications but I do not feel we have the luxury of stabilizing her as the interventional radiologist reported that the gallbladder is almost certainly gangrenous. we will proceed with emergency cholecystectomy and the family was thoroughly informed of the potential dire risks involved, Plan discussed with: Patient, Spouse, Daughter Dietary Evaluation Review Recommendations by RD: Increase Calorie Intake, PPN/TPN Comments: Pt meets criteria of Severe Protein-Calorie Malnutrition in the setting of acute illness based on PO intake <50% estimated energy requirement >5 days, wt loss 13.6kg/20% in 1 year, moderate muscle wasting (anglican & clavicle) and fat depletion (orbital & triceps). Nutrition Recommendation; 1) TPN per Pharmacy to supply [phone] kcal & 63-79 gm protein 2) Advance to soft diet as medically feasible 3) Monitor NPO status, lab values, weight trend, and I/O Expected Outcomes/Goals: To gain/maintain body weight Intake to meet >75% estimated needs GI symptoms to improve Fu 2-3 days Food and Nutrition Intake (Sev: <50% est energy req 5days Interpretation of weight loss: up to 20% in 1 year Body Fat Depletion (Severe): Mod to Severe Depletion Muscle Mass (Severe): Mod to Severe Depletion Fluid Accumulation (N/A): N/A Protein Calorie Malnutrition: Severe Is there a minimum of two crit: Yes CARMELO GUTIERREZ MD Jul 31, 2025 13:03
[2025-07-31] MEDS ORDERED: ADENOSINE 6 MG/2 ML INJ IV ONE (14:59)
[2025-07-31] MEDS ORDERED: VANCOMYCIN 500mg/100mL 100 ML IV ONE (15:00)
[2025-07-31] MEDS ORDERED: EPINEPHrine HCL 250 ML IV ONE (15:04)
--- NOTE | 2025-07-31 15:30 | RESUS ---
BOB MAZARIEGOS ASSESSSMENT History of Events History of Events: see EMR, emergency surgery today, was sent to ICU post op bed 108 code kristine called upon arrival to ICU Initial Information Date: Jul 31, 2025 Time: 14:44 Location of Arrest: ICU ([facility]) Arrest Witnessed: Yes CPR started initial time: 14:44 CPR started by whom: Hospital Staff Type of arrest: Cardiac, Adult, Witnessed Spontaneous Respirations: No Pulse Present: No Monitoring: ECG, Pulse Oximetry Crash Cart Opened and Supplies: Yes Airway Ventilation Breathing at Onset: Assisted Oxygen Delivery Method: Ambu-Bag Time of first Assisted Ventila: 14:44 Artificial Ventilation: Bag/Mask Comments: Intubated during surgery Circulation Circulation #1: Time: 14:44 Pulse Rate (adult): 0 Circulation Comment: pea Circulation #2: Time: 14:46 Pulse Rate (adult): 0 Circulation Comment: asystole Circulation #3: Time: 14:48 Pulse Rate (adult): 0 Circulation Comment: asystole Circulation #4: Time: 14:50 Pulse Rate (adult): 121 Blood Pressure Systolic: 262 Blood Pressure Diastolic: 105 Circulation Comment: ROSC Circulation #5: Time: 14:51 Pulse Rate (adult): 0 Circulation Comment: LOST PULSES Circulation #6: Time: 14:53 Circulation Comment: VFIB SHOCKED AT 120 JOULES Circulation #7: Time: 14:55 Pulse Rate (adult): 121 Circulation Comment: ROSC Circulation #8: Time: 14:57 Circulation Comment: LOST PULSES Circulation #9: Time: 14:59 Circulation Comment: VFIB, SHOCKED AT 150 JOULES Circulation #10: Time: 15:01 Pulse Rate (adult): 0 Circulation Comment: ASYSTOLE Circulation #11: Time: 15:03 Pulse Rate (adult): 0 Circulation Comment: ASYSTOLE, TIME OF Defibrillation Defbrillation : Time Defibrillator Applied: 14:44 Medications & Response Medications and Responses #1: Medication Time: 14:45 ADULT Medications Given ADULT: Epinephrine 1 mg, Sodium Bacarbinate 50 meq Route of Administration: IV Medications and Responses #2: Medication Time: 14:48 ADULT Medications Given ADULT: Epinephrine 1 mg, Calcium Chloride 10 mL Route of Administration: IV Medications and Responses #3: Medication Time: 14:50 ADULT Medications Given ADULT: Sodium Bacarbinate 50 meq Route of Administration: IV Medications and Responses #4: Medication Time: 14:51 ADULT Medications Given ADULT: Epinephrine 1 mg Route of Administration: IV Medications and Responses #5: Medication Time: 14:54 ADULT Medications Given ADULT: Epinephrine 1 mg Route of Administration: IV Medications and Responses #6: Medication Time: 14:58 ADULT Medications Given ADULT: Epinephrine 1 mg, Amiodarone 300 mg, Calcium Chloride 10 mL Route of Administration: IV Medications and Responses #7: Medication Time: 15:00 ADULT Medications Given ADULT: Sodium Bacarbinate 50 meq, Magnesium Sulfate 2 gm Route of Administration: IV Medications and Responses #8: Medication Time: 15:01 ADULT Medications Given ADULT: Epinephrine 1 mg Route of Administration: IV Nurses Notes [place] Coma Scale Eye Opening: None (1) Shiva Coma Scale Verbal: None (1) [place] Coma Scale Motor: None (1) Pupil Reaction: Non Reactive Bedside Blood Glucose: 223 EKG Rhythm: Asystole Nurses Notes - Comment: Dr Robles called family Time Code Ended Time Code Ended: 15:03 Post Arrest Status: Outcome of code: Unsuccessful Patient pronounced by: Mateo Ding NP Time patient pronounced: 15:03 Family notified: Yes Attending called: Yes Code Team Present: Mateo Gomez TRAILER TANK TRUCK DRIVER, Dr Barbosa-Resident, Alexi Corona RNrenovation plant supervisor, Carmela Foster ICU supercharger repair supervisor, Lala Amaya RETAIL SERVICE TECHNICIAN, [place] RETAIL SERVICE TECHNICIAN, Ewelina Watters RETAIL SERVICE TECHNICIAN, Rocío Watters RETAIL SERVICE TECHNICIAN, Suki RETAIL SERVICE TECHNICIAN, Azra RT, Morena RT, [employer] Student Nurses: Angelika Darby Manuel. Alvarado, Robin R Jul 31, 2025 15:30
--- NOTE | 2025-07-31 15:42 | DVHOP ---
DATE OF SURGERY: 07/31/2025 PREOPERATIVE DIAGNOSES: * Gangrenous cholecystitis. * Sepsis. * Metastatic pancreatic cancer. * Supraventricular tachycardia. * Hypotension. SURGEON: Sriram Robles MD. DEPARTMENT STORE SALESPERSON: Wally Mccollum NP. ANESTHESIA: General endotracheal. ANESTHESIOLOGIST: Dr. Wise. PROCEDURE: The patient was brought to the operating room under general endotracheal anesthesia administered by Dr. Wise. The patient's abdomen was prepped and draped including the percutaneous cholecystostomy tube. A supraumbilical incision was made and Veress needle inserted into the peritoneal cavity by the hanging drop technique in order to establish pneumoperitoneum to 15 mmHg pressure by insufflation with carbon dioxide. With the abdomen fully distended, the needle was removed and replaced with a 5 mm trocar port through which a 0-degree laparoscope was inserted visualizing the peritoneal cavity, which was entirely occupied by pus and adhesions. The right lobe of the liver was surrounded by purulent material, which was aspirated and sent for cultures and sensitivities. Under direct vision, in such a way as to avoid injury to underlying viscera, two additional ports were inserted. The left upper quadrant was used for insertion of a 5 mm port site. The right upper quadrant for a 10 mm port and instrumentation was introduced and laparoscopic lysis of adhesions was accomplished. Following lysis of adhesions revealed completely disintegrated gallbladder, only the inferior wall was intact. There was purulent material and bile surrounding the gallbladder. This was submitted for cultures and sensitivities. The infundibular portion of the gallbladder was intact and contained a large impacted stone. The gallbladder was then dissected from surrounding tissues and an inferior portion of the gallbladder adjacent to the cystic duct was circumferentially dissected in order to avoid injury to the common bile duct. The infundibular portion of the cystic duct was divided between metallic clips and subsequently a cystic artery was identified and divided close to the gallbladder again attempting to avoid injury to the common bile duct. The gallbladder was then resected from its liver bed. The gallbladder was almost entirely intrahepatic and dissection was marked by some blood loss. Approximately total of 200 mL of blood loss was incurred during this operation. The fully mobilized gallbladder with an impacted stone were placed into a specimen extraction bag and withdrawn from the peritoneal cavity through the 10 mm port site. The right upper quadrant was then profusely irrigated. The irrigant was aspirated. Hemostasis was meticulously assured and found to be complete. Instrumentation was withdrawn. Two John-Miller drains were placed underneath the right lobe of the liver and over the right lobe of the liver and exteriorized through the 5 mm port site and a 10 mm port site respectively. The drains were secured with a 2-0 nylon suture. Following desufflation of the abdomen, again ensuring complete hemostasis, fascia was closed using #0 Vicryl. The wound was approximated using Monocryl sutures, Dermabond, glue and Steri-Strips. Throughout the operation, the patient maintained blood pressure as well as heart rate. However, I was in the recovery room writing orders when I overheard a code blue being called to the ICU and I rushed into the ICU, found out that the patient was having CPR by the nursing personnel and several physicians in attendance. Apparently, the patient went into PEA from which she was not resuscitated. I went and I explained to the family and one daughter became very upset. The other daughter seemed to be quite composed as was the . The whole family understood the situation. MD CARIN Walker/ZION TID: [id number] RECEIPT: [id number]
[2025-07-31] MEDS ORDERED: SODIUM BICARB 8.4% 50Meq/50ml SYR INJ IV ONE (16:20)
--- NOTE | 2025-07-31 16:50 | DVHDS ---
DATE OF DISCHARGE: 07/31/2025 SUMMARY DATE OF : 07/31/2025 HISTORY OF PRESENT ILLNESS: The patient is an 79-year-old lady, who came in with history of severe right upper quadrant pain accompanied by shortness of breath, nausea, and vomiting. The patient has a history of metastatic pancreatic cancer, coronary artery disease, atrial fibrillation, CVA, gallstones, and hypertension. HOSPITAL COURSE: The patient had an elevated white count of 35,000. The patient underwent gallbladder ultrasound that showed evidence of cholelithiasis with cholecystitis. The patient underwent a HIDA scan that was positive. The patient underwent a percutaneous cholangiogram with drainage of 40 mL of pus from the gallbladder. The patient's blood cultures were positive for gram-positive rods. She was placed on broad-spectrum antibiotics. The patient was encephalopathic secondary to sepsis. She was placed on TPN and was seen in cardiology consult by Dr. Howard. The patient was taken for surgery by Dr. Robles for cholecystectomy. Post-surgery, the patient had a code blue situation and CPR was unsuccessful. The patient on 07/31/2025. FINAL DIAGNOSES: * Acute cholecystitis with sepsis, status post cholecystectomy. * History of CVA. * Left carotid artery stenosis with previous angioplasty and stent. * Metastatic pancreatic cancer. * Hypertension. * Diabetes mellitus. * Lupus. * Pancreatic insufficiency. * Coronary artery disease with stent. * [id number] protein-calorie malnutrition. * Acute renal failure, questionable vasomotor nephropathy. * Thrombocytopenia. * Acute liver failure. MD CHIARA Mon/OPAL TID: [id number] RECEIPT: [id number]
[2025-07-31] MEDS ORDERED: TPN PER PHARMACY IV NR (22:00)
--- NOTE | 2025-08-01 10:52 | ECG ---
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
--- NOTE | 2025-08-01 11:24 | DVHOP ---
DATE OF SURGERY: 07/31/2025 SURGEON: Sriram Robles MD MEDICINAL PLANT PICKER: Wally Mccollum NP ANESTHESIA: General endotracheal. ANESTHESIOLOGIST: Frandy. PROCEDURES: Laparoscopy, laparoscopic lysis of adhesions, laparoscopic cholecystectomy DESCRIPTION OF PROCEDURE: After general endotracheal anesthesia, the patient's skin prepped and draped. A supraumbilical incision was made and Veress needle inserted by the hanging drop technique to establish pneumoperitoneum to 15 mmHg pressure by insufflation with carbon dioxide. With the abdomen fully distended, the needle was removed and replaced with a 5 mm trocar port through which a 0-degree laparoscope was inserted. Visual inspection of the peritoneal cavity revealed profuse adhesive processes and much purulent material in the right upper quadrant, left upper quadrant, and both mid portion of the abdomen as well as the right lower quadrant. There were adhesions between the omentum and the liver as well as the transverse colon and loops of bowel. Adhesions were lysed sufficiently to be able to place additional ports. These were put in unorthodox position to avoid injury to the underlying viscera. The left upper quadrant was used for insertion of a 5 mm port and the right upper quadrant for insertion of a 10 mm port. Instrumentation was withdrawn. Instrumentation was introduced into the peritoneal cavity and following lysis of adhesions, the gallbladder was found to be completely disintegrated and gangrenous. It was traced to the infundibular portion of the gallbladder where there was a large stone impacted in the ostium of the cystic duct. The cystic duct and cystic artery were identified, circumferentially dissected, skeletonized, and traced into the hepaticocystic triangle to the best of my ability with no injury to any surrounding structures, mainly with avoidance of injury to the common bile duct. The cystic duct infundibular portion of the gallbladder were then controlled with hemoclips, which was divided. The cystic artery was divided similarly close to the gallbladder. Subsequently, there was appearance of gangrenous gallbladder and its contents were removed from the liver bed by electrocautery and traction and a fully immobilized gallbladder was placed into the specimen extraction bag together with a large stone which was impacted in the infundibular portion of the gallbladder. This was removed from the peritoneal cavity. The right upper quadrant was then profusely irrigated. Irrigant was aspirated. Two John-Miller drains were placed, one underneath the liver, one over the right dome of the liver, and exteriorized through the port site secured with 2-0 nylon suture. Following assurance of complete hemostasis, instrumentation was withdrawn. Pneumoperitoneum was evacuated. The fascia defect was closed using #0 Vicryl. The wound was approximated using Monocryl sutures, Dermabond, glue, and Steri-Strips. The patient remained in unchanged clinical condition at the termination of the procedure. At the termination of the procedure, the heart rate was in the 110s. Blood pressure was being monitored by the A-line. The patient was producing urine. Apparently, upon reaching the Intensive Care Unit, the patient sustained a cardiac arrest at the time of this dictation and attempt is being made to resuscitate her. I have gone to the family and explained the situation to them in great detail. Explained to them that up to the exit from the operating room, the patient was maintaining her blood pressure; however, upon reaching the ICU, her heart rate decreased and she lost her blood pressure. CPR is in progress at the time of this dictation. Family is aware. MD CARIN Walker/MAYRA TID: [id number] RECEIPT: [id number]
== END 2025-07-31 15:00 | DRG 853 ==
LOC: ER 09:55 → EDBD 09:55 → OVERFLOW 12:28 → TELE-WESTW 07-29 17:41 → WEST WING 07-30 10:39 → TELE-WESTW 07-30 22:11 → ICU WEST 07-31 14:45
PROVIDERS: ADMIT Internal Medicine; ATTEND Internal Medicine
PROC: BF12YZZ Fluoroscopy of Gallbladder using Other Contrast (ICD-10-PCS; 2025-07-29)
PROC: 0F9430Z Drainage of Gallbladder with Drainage Device, Percutaneous Approach (ICD-10-PCS; 2025-07-29)
PROC: 5A12012 Performance of Cardiac Output, Single, Manual (ICD-10-PCS; 2025-07-31)
PROC: 0FT44ZZ Resection of Gallbladder, Percutaneous Endoscopic Approach (ICD-10-PCS; principal; 2025-07-31 13:27)
DX: A41.89 Other specified sepsis (principal); E43 Unspecified severe protein-calorie malnutrition; G93.41 Metabolic encephalopathy; K72.00 Acute and subacute hepatic failure without coma; N17.0 Acute kidney failure with tubular necrosis; C25.9 Malignant neoplasm of pancreas, unspecified; I47.10 Supraventricular tachycardia, unspecified; K80.12 Calculus of gallbladder with acute and chronic cholecystitis without obstruction; I48.91 Unspecified atrial fibrillation; I25.10 Atherosclerotic heart disease of native coronary artery without angina pectoris; D69.6 Thrombocytopenia, unspecified; E11.9 Type 2 diabetes mellitus without complications; E87.6 Hypokalemia; I10 Essential (primary) hypertension; I46.9 Cardiac arrest, cause unspecified; I65.22 Occlusion and stenosis of left carotid artery; K66.0 Peritoneal adhesions (postprocedural) (postinfection); K82.A1 Gangrene of gallbladder in cholecystitis; Z79.02 Long term (current) use of antithrombotics/antiplatelets; Z79.899 Other long term (current) drug therapy; Z80.3 Family history of malignant neoplasm of breast; Z82.49 Family history of ischemic heart disease and other diseases of the circulatory system; Z85.07 Personal history of malignant neoplasm of pancreas; Z86.73 Personal history of transient ischemic attack (TIA), and cerebral infarction without residual deficits; Z87.891 Personal history of nicotine dependence; Z88.0 Allergy status to penicillin; Z88.1 Allergy status to other antibiotic agents; Z88.8 Allergy status to other drugs, medicaments and biological substances; Z95.5 Presence of coronary angioplasty implant and graft; Z68.22 Body mass index [BMI] 22.0-22.9, adult
CPT/HCPCS: 36415; 47532; 71045; 76705; 76937; 78226; 80053; 80202; 81001; 82962; 83605; 83690; 83735; 84100; 84478; 85007; 85027; 85610; 85730; 86850; 86900; 86901; 87040; 87070; 87075; 87077; 87081; 87186; 87205; 92950; 93005; 96360; 96361; 96365; 96366; 96375; 99152; 99291; C1894; G0378; G0463; J0153; J0169; J0692; J1642; J1815; J2003; J2250; J2405; J2470; J3480; J3490